=== PATIENT | male | born 1940 | race American Indian/Alaskan Native ===

== ENCOUNTER 2016-12-13 06:21 | Inpatient (IN) | payer MEDICARE ==
[2016-12-13] MEDS ORDERED: Propofol 10 mg/ml Inj (20 ML) ONE (07:03)
[2016-12-13] MEDS ORDERED: ePHEDrine 50 mg/ml Inj ONE ×3 (07:03→11:37)
[2016-12-13] MEDS ORDERED: Midazolam 2 MG/2 ML VIAL ONE (07:03)
[2016-12-13] MEDS ORDERED: Rocuronium 10 mg/ml (5 ml) ONE ×2 (07:04→08:40)
[2016-12-13] MEDS ORDERED: Succinylcholine 200 mg/10 ml Inj IV ONE ×2 (07:05→12:05)
[2016-12-13] MEDS ORDERED: Etomidate 20 mg/10ml Inj IV ONE ×2 (07:05→07:17)
[2016-12-13] MEDS ORDERED: Ropivacaine 0.5% 30ML IV ONE ×2 (07:17→07:26)
[2016-12-13] MEDS ORDERED: Absorbable Gelatin Sponge Size 100 ONE (07:20)
[2016-12-13] MEDS ORDERED: Thrombin Topical 5,000 IU Spray Kit ONE (07:20)
[2016-12-13 07:30] VITALS: BMI 33.9
--- NOTE | 2016-12-13 08:18 | CP.PCM.HP ---
History of Present Illness - History of Present Illness History of Present Illness: CC: L total knee replacement with Dr. Chan HPI: 76 year old male PMH osteoarthritis with 2 other knee surgeries L knee, LEONARDO , hypertension, hyperlipidemia, former smoker, renal insufficiency, BPH presents today for L total knee replacement for osteoarthritis. Prior to arrival today, patient was seen by the [facility]. and has a documented ECHO which showed normal EF, mild LVH. The letter states the patient has a hx of LEONARDO. After an abnormal stress test, patient had a L heart cath which showed nonobstructive CAD (mid LAD and diffuse luminal irregularities in RCA and LAD.) Normal LVEF 50-55%, and the report states that patient is a low risk for low risk surgical procedure. EKG NSR with rate of 67, QTc 406. Labs were reviewed and significant for elevated Creatinine of 1.5. Per chart review, patient has a history of renal insufficiency. CXR no active disease. Currently no active chest pain or shortness of breath at rest or on exertion. Has tolerated general anesthesia well in the past. METS > 4. Patient is low risk for moderate risk surgery and is medically stable for surgery this morning. Denies recent illness, fever, chills, chest pain, dyspnea, abdominal pain, dysuria, hematuria, hematochezia, melena, n/v/c/d. ROS: per HPI, 12 systems reviewed and negative PMSH: osteoarthritis with 2 other knee surgeries L knee, LEONARDO, hypertension, hyperlipidemia, former smoker, renal insufficiency, BPH FH: HTN SH: denies tobacco, ETOH, IVDU. Former smoker. Meds: as below Allergies: NKDA Vitals: reviewed and currently stable Exam: GEN: WDWN, alert, cooperative HEENT: NCAT, PERRL, EOMI NECK: supple, no JVD, no lymphadenopathy CARDIAC: +S1S2 RRR LUNG: CTAB No WRR ABD: SOFT NT ND BSX4 NO MASSES NO HSM EXT: +pedal pulses, warm and well perfused NEURO: AAOx3 SKIN warm, dry PSYCH normal mood, normal affect Labs: reviewed and as above Rads: reviewed and as above Assessment and Plan: 76 year old male PMH osteoarthritis with 2 other knee surgeries L knee, LEONARDO, hypertension, hyperlipidemia, former smoker, renal insufficiency, BPH presents today for L total knee replacement for osteoarthritis. Prior to arrival today, patient was seen by the [facility]. and has a documented ECHO which showed normal EF, mild LVH. The letter states the patient has a hx of LEONARDO. After an abnormal stress test, patient had a L heart cath which showed nonobstructive CAD (mid LAD and diffuse luminal irregularities in RCA and LAD.) Normal LVEF 50- 55%, and the report states that patient is a low risk for low risk surgical procedure. EKG NSR with rate of 67, QTc 406. Labs were reviewed and significant for elevated Creatinine of 1.5. Per chart review, patient has a history of renal insufficiency. CXR no active disease. Currently no active chest pain or shortness of breath at rest or on exertion. Has tolerated general anesthesia well in the past. METS > 4. Patient is low risk for moderate risk surgery and is medically stable for surgery this morning. S/P L total knee surgery with History of Osteoarthritis admit to medsurg VTE ppx per ortho Ancef 2 more doses PT eval and treat pain control incentive spirometer Ortho consult Dr. Chan CAD hx? HOLD ASA, plavix confirm with Ortho when OK to restart Hypertension stable continue amlodipine, hctz, metoprolol Hyperlipidemia stable Renal Insufficiency stable BPH cont flomax VTE ppx per ortho Present on Admission - Present on Admission Any Indicators Present on Admission: No Past Patient History - Past Medical History & Family History Past Medical History?: Yes - Past Social History Smoking Status: Former Smoker - CARDIAC Hx Hypercholesterolemia: Yes Hx Hypertension: Yes - PULMONARY Hx Respiratory Disorders: No - NEUROLOGICAL Hx Neurological Disorder: No - HEENT Hx HEENT Problems: No - RENAL Hx Chronic Kidney Disease: No - ENDOCRINE/METABOLIC Hx Endocrine Disorders: No - HEMATOLOGICAL/ONCOLOGICAL Hx Blood Disorders: No Hx Anemia: Yes Hx Blood Transfusions: Yes Hx Blood Transfusion Reaction: No - INTEGUMENTARY Hx Dermatological Problems: No - MUSCULOSKELETAL/RHEUMATOLOGICAL Hx Musculoskeletal Disorders: Yes Hx Arthritis: Yes Hx Falls: No Hx Osteoarthritis: Yes - GASTROINTESTINAL Hx Gastrointestinal Disorders: No - GENITOURINARY/GYNECOLOGICAL Hx Genitourinary Disorders: Yes Hx Prostate Problems: Yes - PSYCHIATRIC Hx Emotional Abuse: No Hx Physical Abuse: No - SURGICAL HISTORY Hx Surgeries: Yes Hx Joint Replacement: Yes (TOTAL LEFT KNEE REPLACEMENT X2) Other/Comment: LASER PROSTATE SX - ANESTHESIA Hx Anesthesia: Yes Hx Anesthesia Reactions: No Hx Malignant Hyperthermia: No Meds Allergies/Adverse Reactions: Allergies Allergy/AdvReac Type Severity Reaction Status Date / Time No Known Allergies Allergy Verified 11/23/16 10:06 Results - Vital Signs Recent Vital Signs: Last Vital Signs Temp 98.3 F 12/13/16 07:14 Pulse 84 12/13/16 07:23 Resp 20 12/13/16 07:14 BP 155/92 H 12/13/16 07:14 Pulse Ox 97 12/13/16 07:14 - Labs Result Diagrams: 12/13/16 16:49 Labs: Laboratory Results - last 24 hr 12/13/16 07:15 BBK History Checked No verified bt
[2016-12-13] MEDS ORDERED: Lactated Ringer's 1,000 ML IV ONE ×3 (08:20→13:43)
[2016-12-13 09:21] LABS: FLUID TYPE SYNOVIAL FLUID
[2016-12-13 11:35] LABS: SYNOVIAL FLUID TOTAL COUNT 100 (0-0)
[2016-12-13] MEDS ORDERED: Dexamethasone 4 mg/1 ml ONE (12:33)
[2016-12-13] MEDS ORDERED: Sevoflurane - Inhalation Anesthetic Liq (250 ml) ONE (12:37)
[2016-12-13] MEDS ORDERED: Neostigmine Methylsulfate 2 MG/2 ML ML IV ONE (12:46)
[2016-12-13] MEDS ORDERED: Bacitracin OINT 15GM TOP ONE (13:00)
[2016-12-13] MEDS ORDERED: Bacitracin Ointment 30 GM TUBE ONE (13:07)
[2016-12-13] MEDS ORDERED: Naloxone 0.4 mg/ml Inj (Adult) IVP PRN (13:48)
--- NOTE | 2016-12-13 13:55 | RAD ---
HISTORY: preop COMPARISON: None available. TECHNIQUE: Chest PA and lateral FINDINGS: Examination limited by habitus. LUNGS: Mild bibasilar atelectasis. Please note that chest x-ray has limited sensitivity for the detection of pulmonary masses. PLEURA: Mild bilateral pleural thickening versus trace fluid. No definite pneumothorax . CARDIOVASCULAR: Heart size appears within normal limits. Ectatic aorta. OSSEOUS STRUCTURES: Degenerative changes. VISUALIZED UPPER ABDOMEN: Mild elevation of the right hemidiaphragm. OTHER FINDINGS: None. IMPRESSION: Mild bibasilar atelectasis. Mild bilateral pleural thickening versus trace fluid. Aortic appears markedly ectatic, however there is no clear evidence of aneurysmal dilatation. CT of the chest with contrast may be considered as an outpatient in order to further assess if indicated.
[2016-12-13] MEDS: HYDROmorphone 0.5 mg/0.5 ml ISec IVP PRN ×3 (14:15→15:45)
[2016-12-13 17:10] LABS: HEMATOCRIT 40.4 % (35.0-51.0); MEAN CELL VOLUME 86.1 fl (80.0-94.0); MEAN CORPUSCULAR HEMOGLOBIN 27.1 pg (27.0-31.0); MEAN CORPUSCULAR HGB CONC 31.5 g/dL (33.0-37.0); RED CELL DISTRIBUTION WIDTH 13.9 % (11.5-14.5); WHITE BLOOD COUNT 12.5 K/uL (4.8-10.8)
[2016-12-13] MEDS ORDERED: Metoprolol 1 mg/ml Inj IVP ONE ×2 (17:18)
[2016-12-13] MEDS ORDERED: Metoprolol 1 mg/ml Inj IVP STA (17:18)
--- NOTE | 2016-12-13 19:44 | PCM.SURG1 ---
Surgeon's Initial Post Op Note - Surgeon's Notes Surgeon: Dustin Set Up Technician: EASTON Reza/ 2nd assist Hector Abdul Type of Anesthesia: General Endo Anesthesia Administered By: DR Michelle Mcginnis Pre-Operative Diagnosis: Failed/painful Revision TKR (Left). tricompartmental synovitis Operative Findings: failed L TKR with revision Tibial component which has subsided. loose femoral component (Non- stemmed0. patella damge. posterior capsular contracture. lateral pateela contractur. com[promise patella ligament Post-Operative Diagnosis: as above Operation Performed: Revision L TKR. removal TKR components (4). repair patella ligamnet. bulk allograft with internal fixation medial tibial plateau. posterior capsular release. lateral patella release. anterior and posterior synovectomy Specimen/Specimens Removed: bone/synovium/TKR components Estimated Blood Loss: EBL {In ML}: 125 Blood Products Given: N/A Drains Used: Hemovac Post-Op Condition: Good Date of Surgery/Procedure: 12/13/16 Time of Surgery/Procedure: 09:05 (8;55 time in room anaesthesia indcution time)
[2016-12-13] MEDS: ceFAZolin 2 GM in Sodium Chloride 0.9% 100 ML IVPB SCH (20:49)
[2016-12-13] MEDS: Lactated Ringer's 1,000 ML IV SCH (21:47)
[2016-12-14] MEDS: Lactated Ringer's 1,000 ML IV SCH ×3 (06:25→14:38)
[2016-12-14 06:41] LABS: BASO % 0.1 % (0.0-2.0); EOS % 0.1 % (0.0-4.0); HEMATOCRIT 33.7 % (35.0-51.0); LYMPH # 0.6 K/uL (1.0-4.3); LYMPH % 5.4 % (20.0-40.0); MEAN CELL VOLUME 85.2 fl (80.0-94.0); MEAN CORPUSCULAR HEMOGLOBIN 27.4 pg (27.0-31.0); MEAN CORPUSCULAR HGB CONC 32.2 g/dL (33.0-37.0); MEAN PLATELET VOLUME 8.7 fl (7.2-11.7); MONO # 1.4 K/uL (0.0-0.8); MONO % 11.3 % (0.0-10.0); NEUT # 9.9 K/uL (1.8-7.0); NEUT % 83.1 % (50.0-75.0); PLATELET COUNT 101 K/uL (130-400); RED CELL DISTRIBUTION WIDTH 14.1 % (11.5-14.5)
[2016-12-14 06:42] LABS: CALCIUM 8.7 mg/dL (8.4-10.2); POTASSIUM 4.2 MMOL/L (3.6-5.0)
[2016-12-14 08:45] LABS: NEUTROPHIL 83 % (42-75); TOTAL CELLS COUNTED 100
[2016-12-14 08:46] LABS: LARGE PLATELETS PRESENT
[2016-12-14] MEDS ORDERED: BENAZEPRIL PO SCH (09:00)
[2016-12-14] MEDS ORDERED: AMLODIPINE BESYLATE PO SCH (09:00)
[2016-12-14] MEDS ORDERED: [UNRECOGNIZED DRUG - OTHER] PO SCH (09:00)
[2016-12-14] MEDS: Metoprolol Succinate 100 mg XL Tab PO SCH (10:13)
--- NOTE | 2016-12-14 10:16 | CP.PCM.CON ---
History of Present Illness - History of Present Illness History of Present Illness: THE PATIENT IS A 76 YEAR OLD MALE WHO WAS ADMITTED YESTERDAY AND UNDERWENT A REVISION OF A 2ND LEFT KNEE REPLACEMENT. HE ALSO HAS A HISTORY OF HYPERTENSION , HYPERLIPIDEMIA, LEONARDO AND BPH. PRIOR TO SURGERY HE HAD AN ECHOCARDIOGRAM THAT SHOWED GOOD LV FUNCTION. HE HAD AN ABNORMAL STRESS TEST FOLLOWED BY A CARDIAC CATHETERIZATION THAT DID NOT REVEAL ANY SIGNIFICANT CAD. CARDIOLOGY WAS ASKED TO FOLLOW HIM. HE DENIES ANY CHEST PAIN OR SOB. Past Patient History - Past Medical History & Family History Past Medical History?: Yes - Past Social History Smoking Status: Former Smoker - CARDIAC Hx Hypercholesterolemia: Yes Hx Hypertension: Yes - PULMONARY Hx Respiratory Disorders: No - NEUROLOGICAL Hx Neurological Disorder: No - HEENT Hx HEENT Problems: No - RENAL Hx Chronic Kidney Disease: No - ENDOCRINE/METABOLIC Hx Endocrine Disorders: No - HEMATOLOGICAL/ONCOLOGICAL Hx Blood Disorders: No Hx Anemia: Yes Hx Blood Transfusions: Yes Hx Blood Transfusion Reaction: No - INTEGUMENTARY Hx Dermatological Problems: No - MUSCULOSKELETAL/RHEUMATOLOGICAL Hx Musculoskeletal Disorders: Yes Hx Arthritis: Yes Hx Falls: No Hx Osteoarthritis: Yes - GASTROINTESTINAL Hx Gastrointestinal Disorders: No - GENITOURINARY/GYNECOLOGICAL Hx Genitourinary Disorders: Yes Hx Prostate Problems: Yes - PSYCHIATRIC Hx Emotional Abuse: No Hx Physical Abuse: No - SURGICAL HISTORY Hx Surgeries: Yes Hx Joint Replacement: Yes (TOTAL LEFT KNEE REPLACEMENT X2) Other/Comment: LASER PROSTATE SX - ANESTHESIA Hx Anesthesia: Yes Hx Anesthesia Reactions: No Hx Malignant Hyperthermia: No Meds Allergies/Adverse Reactions: Allergies Allergy/AdvReac Type Severity Reaction Status Date / Time No Known Allergies Allergy Verified 11/23/16 10:06 - Medications Medications: Current Medications Aspirin (Ecotrin) 81 mg PO DAILY [facility] Clopidogrel Bisulfate (Plavix) 75 mg PO DAILY [facility] Home Med (Amlodipine Besylate/Benazepril [Amlodipine-Benazepril 10-20 Mg]) 1 cap PO DAILY [facility] Home Med (Febuxostat [Uloric]) 40 mg PO DAILY [facility] Hydrochlorothiazide (Microzide) 12.5 mg PO DAILY [facility] Hydromorphone HCl (Dilaudid) 0.5 mg IVP Q10M PRN PRN Reason: Pain, moderate (4-7) Last Admin: 12/13/16 15:45 Dose: 0.5 mg Hydromorphone HCl (Dilaudid 0.2 Mg/Ml Automatic Trimming Sewer) 0 mg IV PRN PRN; Protocol PRN Reason: Pain, moderate (4-7) Last Admin: 12/13/16 16:40 Dose: 0.2 mg Lactated Ringer's (Lactated Ringer's) 1,000 mls @ 125 mls/hr IV .Q8H [facility] Last Admin: 12/14/16 06:25 Dose: 125 mls/hr Metoprolol Succinate (Toprol Xl) 100 mg PO DAILY [facility] Naloxone HCl (Narcan) 0.1 mg IVP Q2M PRN PRN Reason: Opiate reversal Tamsulosin HCl (Flomax) 0.4 mg PO DAILY [facility] Physical Exam - Respiratory Exam Respiratory Exam: Clear to Auscultation Bilateral - Cardiovascular Exam Cardiovascular Exam: REGULAR RHYTHM, +S1, +S2 - Extremities Exam Additional comments: LEFT KNEE WITH SURGICAL DRESSINGS Results - Vital Signs Recent Vital Signs: Last Vital Signs Temp 98.8 F 12/14/16 09:00 Pulse 101 H 12/14/16 09:00 Resp 20 12/14/16 09:00 BP 127/83 12/14/16 09:00 Pulse Ox 96 12/14/16 09:00 - Labs Result Diagrams: 12/14/16 05:45 12/14/16 05:45 Labs: Laboratory Results - last 24 hr 12/13/16 12/13/16 12/14/16 16:49 Unknown 05:45 WBC 12.5 H 12.0 H RBC 4.70 3.96 L Hgb 12.7 10.8 L Hct 40.4 33.7 L MCV 86.1 85.2 MCH 27.1 27.4 MCHC 31.5 L 32.2 L RDW 13.9 14.1 Plt Count 116 L 101 L MPV 8.7 Neut % (Auto) 83.1 H Lymph % (Auto) 5.4 L [place] % (Auto) 11.3 H Eos % (Auto) 0.1 Baso % (Auto) 0.1 Neut # 9.9 H Lymph # 0.6 L [place] # 1.4 H Eos # 0.0 Baso # 0.0 Neutrophils % (Manual) 83 H Lymphocytes % (Manual) 8 L Monocytes % (Manual) 9 Platelet Estimate Decreased L Large Platelets Present Hypochromasia (manual) Slight Tear Drop Cells Slight Ovalocytes Slight Schistocytes Slight Sodium Potassium Chloride Carbon Dioxide Anion Gap BUN Creatinine Est GFR ( Amer) Est GFR (Non-Af Amer) Random Glucose Calcium Synovial WBC 72.0 Synovial RBC 24715.0 H Synovial Neutrophils 21.0 H Synovial Lymphocytes 65.0 H Synov Monos/Macrophage 14 H Synovial Fluid Comment Light red 12/14/16 05:45 WBC RBC Hgb Hct MCV MCH MCHC RDW Plt Count MPV Neut % (Auto) Lymph % (Auto) [place] % (Auto) Eos % (Auto) Baso % (Auto) Neut # Lymph # [place] # Eos # Baso # Neutrophils % (Manual) Lymphocytes % (Manual) Monocytes % (Manual) Platelet Estimate Large Platelets Hypochromasia (manual) Tear Drop Cells Ovalocytes Schistocytes Sodium 139 Potassium 4.2 Chloride 106 Carbon Dioxide 25 Anion Gap 13 BUN 30 H Creatinine 2.2 H Est GFR ( Amer) 35 Est GFR (Non-Af Amer) 29 Random Glucose 138 H Calcium 8.7 Synovial WBC Synovial RBC Synovial Neutrophils Synovial Lymphocytes Synov Monos/Macrophage Synovial Fluid Comment Assessment & Plan - Assessment and Plan (Free Text) Assessment: S/P REVISION OF LEFT KNEE REPLACEMENT HYPERTENSION Plan: CONTINUE METOPROLOL, ASPIRIN AND CLOPIDOGREL
[2016-12-14] MEDS: ceFAZolin 2 GM in Sodium Chloride 0.9% 100 ML IVPB SCH (10:57)
--- NOTE | 2016-12-14 13:29 | CP.PCM.PN ---
Subjective - Date & Time of Evaluation Date of Evaluation: 12/14/16 Time of Evaluation: 13:26 - Subjective Subjective: seen examined bedside HR low 100s stable asx no other complaints pain is controlled no cp dyspnea or calf tenderness vss nad Objective - Vital Signs/Intake and Output Vital Signs (last 24 hours): Temp Pulse Resp BP Pulse Ox 99.0 F 105 H 20 109/67 96 12/14/16 12:08 12/14/16 12:08 12/14/16 12:08 12/14/16 12:08 12/14/16 12:08 Intake and Output: 12/14/16 12/14/16 06:59 18:59 Intake Total 1840 Output Total 400 Balance 1440 - Medications Medications: Current Medications Aspirin (Ecotrin) 81 mg PO DAILY [facility] Clopidogrel Bisulfate (Plavix) 75 mg PO DAILY [facility] Enoxaparin Sodium (Lovenox) 40 mg SC DAILY [facility] PRN Reason: Protocol Home Med (Amlodipine Besylate/Benazepril [Amlodipine-Benazepril 10-20 Mg]) 1 cap PO DAILY [facility] Home Med (Febuxostat [Uloric]) 40 mg PO DAILY [facility] Hydrochlorothiazide (Microzide) 12.5 mg PO DAILY [facility] Hydromorphone HCl (Dilaudid) 0.5 mg IVP Q10M PRN PRN Reason: Pain, moderate (4-7) Last Admin: 12/13/16 15:45 Dose: 0.5 mg Hydromorphone HCl (Dilaudid 0.2 Mg/Ml [employer]) 0 mg IV PRN PRN; Protocol PRN Reason: Pain, moderate (4-7) Last Admin: 12/13/16 16:40 Dose: 0.2 mg Lactated Ringer's (Lactated Ringer's) 1,000 mls @ 125 mls/hr IV .Q8H [facility] Last Admin: 12/14/16 06:25 Dose: 125 mls/hr Metoprolol Succinate (Toprol Xl) 100 mg PO DAILY [facility] Last Admin: 12/14/16 10:13 Dose: 100 mg Naloxone HCl (Narcan) 0.1 mg IVP Q2M PRN PRN Reason: Opiate reversal Tamsulosin HCl (Flomax) 0.4 mg PO DAILY [facility] Last Admin: 12/14/16 10:14 Dose: 0.4 mg - Labs Labs: 12/14/16 05:45 12/14/16 05:45 - Constitutional Appears: Non-toxic, No Acute Distress - Head Exam Head Exam: ATRAUMATIC, NORMOCEPHALIC - Eye Exam Eye Exam: EOMI, Normal appearance, PERRL Pupil Exam: NORMAL ACCOMODATION - ENT Exam ENT Exam: Mucous Membranes Moist, Normal Oropharynx - Respiratory Exam Respiratory Exam: Clear to Ausculation Bilateral, NORMAL BREATHING PATTERN - Cardiovascular Exam Cardiovascular Exam: RRR, +S1, +S2 - GI/Abdominal Exam GI & Abdominal Exam: Soft, Normal Bowel Sounds. absent: Tenderness, Mass, Organomegaly - Extremities Exam Extremities Exam: Normal Capillary Refill Additional comments: dressing in place +hemovac - Back Exam Back Exam: absent: CVA tenderness (L), CVA tenderness (R) - Neurological Exam Neurological Exam: Alert, Awake, Oriented x3 - Psychiatric Exam Psychiatric exam: Normal Affect, Normal Mood - Skin Skin Exam: Dry, Warm Assessment and Plan - Assessment and Plan (Free Text) Plan: 76 year old male PMH osteoarthritis with 2 other knee surgeries L knee, LEONARDO, hypertension, hyperlipidemia, former smoker, renal insufficiency, BPH presents today for L total knee replacement for osteoarthritis. Prior to arrival today, patient was seen by the [facility]. and has a documented ECHO which showed normal EF, mild LVH. The letter states the patient has a hx of LEONARDO. After an abnormal stress test, patient had a L heart cath which showed nonobstructive CAD (mid LAD and diffuse luminal irregularities in RCA and LAD.) Normal LVEF 50- 55%, and the report states that patient is a low risk for low risk surgical procedure. EKG NSR with rate of 67, QTc 406. Labs were reviewed and significant for elevated Creatinine of 1.5. Per chart review, patient has a history of renal insufficiency. CXR no active disease. Currently no active chest pain or shortness of breath at rest or on exertion. Has tolerated general anesthesia well in the past. METS > 4. Patient is low risk for moderate risk surgery and is medically stable for surgery this morning. S/P L total knee surgery with History of Osteoarthritis +hemovac in place Ancef 2 more doses completed VTE ppx per ortho today, Lovenox 40mg DAILY PT eval and treat, follow up pain control, change to PO incentive spirometer Ortho consult Dr. Chan, discussed today Cardiology consult with Dr. Herrera, Discussed. HOLD ASA and Plavix for now, continue with Lovenox PPx for VTE CAD hx? HOLD ASA, plavix confirm with Ortho when OK to restart Cardiology consult with Dr. Herrera, Discussed. HOLD ASA and Plavix for now, continue with Lovenox PPx for VTE Hypertension stable continue amlodipine, hctz, metoprolol Hyperlipidemia stable Renal Insufficiency stable BPH cont flomax VTE ppx Lovenox 40mg DAILY
--- NOTE | 2016-12-14 13:39 | RAD ---
Indication: Postop Comparison: None available Two views, left knee Findings: The patient is status post left knee total arthroplasty. Alignment appears satisfactory. Soft tissue swelling, drainage catheter, subcutaneous emphysema, and surgical bryon compatible with recent postoperative history Impression: Status post left arthroplasty as above.
[2016-12-14] MEDS ORDERED: Oxycodone/Acetaminophen 5/325 mg Tab PO PRN (14:21)
[2016-12-14] MEDS: Oxycodone/Acetaminophen 5/325 mg Tab PO PRN (17:08)
[2016-12-15] MEDS: Lactated Ringer's 1,000 ML IV SCH ×3 (02:31→14:00)
[2016-12-15 07:22] LABS: BASO % 0.6 % (0.0-2.0); EOS # 0.1 K/uL (0.0-0.7); EOS % 0.9 % (0.0-4.0); HEMATOCRIT 23.6 % (35.0-51.0); LYMPH # 0.4 K/uL (1.0-4.3); LYMPH % 5.1 % (20.0-40.0); MEAN CORPUSCULAR HEMOGLOBIN 27.7 pg (27.0-31.0); MEAN CORPUSCULAR HGB CONC 32.6 g/dL (33.0-37.0); MONO % 11.7 % (0.0-10.0); NEUT # 7.1 K/uL (1.8-7.0); NEUT % 81.7 % (50.0-75.0); NRBC % 0.1 % (0.0-0.0); RED CELL DISTRIBUTION WIDTH 13.6 % (11.5-14.5); WHITE BLOOD COUNT 8.6 K/uL (4.8-10.8)
[2016-12-15 07:36] LABS: CALCIUM 8.3 mg/dL (8.4-10.2); POTASSIUM 4.1 MMOL/L (3.6-5.0)
[2016-12-15] MEDS: Metoprolol Succinate 100 mg XL Tab PO SCH (08:58)
[2016-12-15] MEDS ORDERED: Enoxaparin 40 mg Syringe SC SCH (09:00)
--- NOTE | 2016-12-15 09:49 | CP.PCM.PN ---
Subjective - Date & Time of Evaluation Date of Evaluation: 12/15/16 Time of Evaluation: 09:00 - Subjective Subjective: Pt has low grade fever denies cough His pain is well controlled denies dizziness no CP no SOB no abd pain Discussed need for Blood transfusion- pt agreed refuses to go to TCU nor TOYIN on discharge Objective - Vital Signs/Intake and Output Vital Signs (last 24 hours): Temp Pulse Resp BP Pulse Ox 99.8 F H 97 H 18 123/77 94 L 12/15/16 07:52 12/15/16 08:58 12/15/16 07:52 12/15/16 08:58 12/15/16 07:52 Intake and Output: 12/15/16 12/15/16 06:59 18:59 Intake Total 1250 Output Total 1230 Balance 20 - Medications Medications: Current Medications Aspirin (Ecotrin) 81 mg PO DAILY [facility] Clopidogrel Bisulfate (Plavix) 75 mg PO DAILY [facility] Enoxaparin Sodium (Lovenox) 40 mg SC DAILY [facility] PRN Reason: Protocol Home Med (Amlodipine Besylate/Benazepril [Amlodipine-Benazepril 10-20 Mg]) 1 cap PO DAILY [facility] Home Med (Febuxostat [Uloric]) 40 mg PO DAILY [facility] Hydromorphone HCl (Dilaudid) 0.5 mg IVP Q10M PRN PRN Reason: Pain, moderate (4-7) Last Admin: 12/13/16 15:45 Dose: 0.5 mg Lactated Ringer's (Lactated Ringer's) 1,000 mls @ 125 mls/hr IV .Q8H [facility] Last Admin: 12/15/16 02:32 Dose: 125 mls/hr Metoprolol Succinate (Toprol Xl) 100 mg PO DAILY [facility] Last Admin: 12/15/16 08:58 Dose: 100 mg Naloxone HCl (Narcan) 0.1 mg IVP Q2M PRN PRN Reason: Opiate reversal Oxycodone/Acetaminophen (Percocet 5/325 Mg Tab) 1 tab PO Q4 PRN PRN Reason: Pain, moderate (4-7) Stop: 12/17/16 14:22 Oxycodone/Acetaminophen (Percocet 5/325 Mg Tab) 2 tab PO Q6 PRN PRN Reason: Pain, severe (8-10) Stop: 12/17/16 14:22 Last Admin: 12/14/16 17:08 Dose: 2 tab Tamsulosin HCl (Flomax) 0.4 mg PO DAILY [facility] Last Admin: 12/14/16 10:14 Dose: 0.4 mg - Labs Labs: 12/15/16 06:30 12/15/16 06:30 - Constitutional Appears: No Acute Distress - Head Exam Head Exam: NORMAL INSPECTION, NORMOCEPHALIC - Eye Exam Eye Exam: EOMI, Normal appearance Pupil Exam: NORMAL ACCOMODATION - ENT Exam ENT Exam: Mucous Membranes Moist, Normal External Ear Exam - Neck Exam Neck Exam: Full ROM. absent: Meningismus - Respiratory Exam Respiratory Exam: NORMAL BREATHING PATTERN. absent: Rales, Wheezes, Respiratory Distress - Cardiovascular Exam Cardiovascular Exam: REGULAR RHYTHM, +S1, +S2 - GI/Abdominal Exam GI & Abdominal Exam: Soft, Normal Bowel Sounds. absent: Tenderness - Extremities Exam Extremities Exam: Full ROM, Normal Capillary Refill. absent: Calf Tenderness Additional comments: Hemovac in plave Knee immobolizer on, dressing intact - Back Exam Back Exam: Full ROM. absent: CVA tenderness (L), CVA tenderness (R) - Neurological Exam Neurological Exam: Alert, Awake, CN II-XII Intact, Oriented x3 - Psychiatric Exam Psychiatric exam: Normal Affect, Normal Mood - Skin Skin Exam: Dry, Normal Color, Warm Assessment and Plan - Assessment and Plan (Free Text) Assessment: 76 year old male PMH osteoarthritis with hx of TKR , LEONARDO, hypertension, hyperlipidemia, former smoker, renal insufficiency, BPH presents today for L total knee replacement for osteoarthritis. Prior to arrival today, patient was seen by the [facility]. and has a documented ECHO which showed normal EF, mild LVH. The letter states the patient has a hx of LEONARDO. After an abnormal stress test, patient had a L heart cath which showed nonobstructive CAD (mid LAD and diffuse luminal irregularities in RCA and LAD.) Normal LVEF 50-55%, and the report states that patient is a low risk for surgical procedure. EKG NSR with rate of 67, QTc 406. Labs were reviewed and significant for elevated Creatinine of 1.5. Per chart review, patient has a history of renal insufficiency. CXR no active disease. Currently no active chest pain or shortness of breath at rest or on exertion. Has tolerated general anesthesia well in the past. METS > 4. Primary Osteoarthritis with hx of Failed TKR s/p Revision TKR Ortho : Dr Chan - Pain controlled on current pain mgt - PT/OT consulted - Hemovc in place Acute Blood Loss Anemia, post op Hgb 7.8 Transfuse 2 units PRBC - start Ferrous Sulfate - VS stable, sl tachycardic Thrombocytopenia - pt came in with sl low Platelet - 116 now down to 80 - will cont to monitor - d/c Lovenox - Stopped ASA, Plavix CAD history -HOLD ASA, plavix -Cardiology consult with Dr. Herrera Hypertension -continue amlodipine, metoprolol Hyperlipidemia, stable Chronic Kideney Disease stage III Crea 2.1 , sl better than yesterday , will cont to monitor BPH -cont flomax VTE ppx SCD
--- NOTE | 2016-12-15 12:22 | CP.PCM.PN ---
Subjective - Date & Time of Evaluation Date of Evaluation: 12/15/16 Time of Evaluation: 09:40 - Subjective Subjective: NO CHEST PAIN OR SOB JUST PAIN AT LEFT KNEE SURGICAL SITE Objective - Vital Signs/Intake and Output Vital Signs (last 24 hours): Temp Pulse Resp BP Pulse Ox 101 F H 97 H 18 123/77 94 L 12/15/16 10:15 12/15/16 08:58 12/15/16 07:52 12/15/16 08:58 12/15/16 07:52 Intake and Output: 12/15/16 12/15/16 06:59 18:59 Intake Total 1250 Output Total 1230 Balance 20 - Medications Medications: Current Medications Acetaminophen (Tylenol 325mg Tab) 650 mg PO Q6 PRN PRN Reason: Fever >100.4 F Last Admin: 12/15/16 10:15 Dose: 650 mg Aspirin (Ecotrin) 81 mg PO DAILY [facility] Clopidogrel Bisulfate (Plavix) 75 mg PO DAILY [facility] Docusate Sodium (Colace) 100 mg PO BID [facility] Enoxaparin Sodium (Lovenox) 40 mg SC DAILY [facility] PRN Reason: Protocol Ferrous Sulfate (Feosol) 325 mg PO TID [facility] Home Med (Febuxostat [Uloric]) 40 mg PO DAILY [facility] Hydromorphone HCl (Dilaudid) 0.5 mg IVP Q10M PRN PRN Reason: Pain, moderate (4-7) Last Admin: 12/13/16 15:45 Dose: 0.5 mg Lactated Ringer's (Lactated Ringer's) 1,000 mls @ 125 mls/hr IV .Q8H [facility] Last Admin: 12/15/16 02:32 Dose: 125 mls/hr Metoprolol Succinate (Toprol Xl) 100 mg PO DAILY [facility] Last Admin: 12/15/16 08:58 Dose: 100 mg Naloxone HCl (Narcan) 0.1 mg IVP Q2M PRN PRN Reason: Opiate reversal Oxycodone/Acetaminophen (Percocet 5/325 Mg Tab) 1 tab PO Q4 PRN PRN Reason: Pain, moderate (4-7) Stop: 12/17/16 14:22 Oxycodone/Acetaminophen (Percocet 5/325 Mg Tab) 2 tab PO Q6 PRN PRN Reason: Pain, severe (8-10) Stop: 12/17/16 14:22 Last Admin: 12/14/16 17:08 Dose: 2 tab Tamsulosin HCl (Flomax) 0.4 mg PO DAILY [facility] Last Admin: 12/15/16 10:16 Dose: 0.4 mg - Labs Labs: 12/15/16 06:30 12/15/16 06:30 - Respiratory Exam Respiratory Exam: Clear to Ausculation Bilateral - Cardiovascular Exam Cardiovascular Exam: REGULAR RHYTHM, +S1, +S2 - Additional Findings Additional findings: H/H 01/[address] 80K Assessment and Plan - Assessment and Plan (Free Text) Assessment: LEFT KNEE SURGERY HYPERTENSION HYPERLIPIDEMIA Plan: CONTINUE METOPROLOL DISCONTINUE ASA AND CLOPIDOGREL LOVENOX ON HOLD TO TRANSFUSE 2URBCS
[2016-12-15] MEDS: Oxycodone/Acetaminophen 5/325 mg Tab PO PRN (20:16)
[2016-12-16 07:18] LABS: HEMATOCRIT 23.6 % (35.0-51.0); MEAN CELL VOLUME 84.5 fl (80.0-94.0); MEAN CORPUSCULAR HEMOGLOBIN 28.3 pg (27.0-31.0); MEAN CORPUSCULAR HGB CONC 33.5 g/dL (33.0-37.0); RED CELL DISTRIBUTION WIDTH 14.1 % (11.5-14.5); WHITE BLOOD COUNT 7.7 K/uL (4.8-10.8)
[2016-12-16 07:30] LABS: CALCIUM 8.4 mg/dL (8.4-10.2); POTASSIUM 4.5 MMOL/L (3.6-5.0)
--- NOTE | 2016-12-16 08:14 | OP ---
PROCEDURE DATE: 12/13/2016 PREOPERATIVE DIAGNOSES: Failed painful left total knee replacement, arthroplasty. POSTOPERATIVE DIAGNOSES: Loosened femoral component, subsided tibial component with loosening and de struction of the medial tibial condyle. SURGEON: Jose Elias Chan MD GLASS CLEANING MACHINE TENDER: Lola Ramos, Certified Registered Nursing Cookie Breaker. It should be noted janene t the certified nursing nurse first aid, Lola Ramos, was essential to the completion of the operati ve goal. SECOND UMBRELLA MENDER: Hector Abdul. ANESTHESIA: Administered by ____, general endotracheal anesthesia. PREOPERATIVE DIAGNOSES: Painful revision left total knee replacement. POSTOPERATIVE DIAGNOSES: Loosened femoral component, loosened tibial component, destruction of media l tibial condyle. OPERATIVE FINDINGS FOUND: Left TKR with loosened femoral component and a subsided tibial component. There is also evidence of posterior capsular contracture, lateral patellar contracture and compromis e of the patella ligament. PROCEDURES: 1. Complex revision, left TKR. 2. Removal of previous total knee components. 3. Repair of patella ligament. 4. Bulk allograft with internal fixation, medial tibial condyle. 5. Posterior capsular release. 6. Lateral patellar retinacular release. OPERATIVE PROCEDURE: After having obtained informed consent, after thoroughly discussing the pros, c ons, risks and benefits of revision knee arthroplasty, the possibility of mechanical failure, infecti on, thromboembolic disease, nerve injury, leg length inequality, secondary or tertiary surgery, the p atient identified, in the supine position with all bony prominences well padded, the left lower extre mity is prepped and free draped in the usual fashion for lower extremity surgery. The tourniquet had been applied, but is not yet inflated. After exsanguinating the wound using a 6-inch Esmarch bandag e, the tourniquet which had been applied is inflated to 350 mmHg. The initial incision is identified and the initial incision is extended 2 fingerbreadths proximally and 2 fingerbreadths distally. The skin incision is carried down through the skin and subcutaneous tissue and ____ skin and subcutaneou s tissue is removed. At this point in time, taking great care to ____ the depth of the incision, car rying the incision down to the level of the prepatellar bursa, where the fact that the blood supply c omes in on the subcutis, the flaps were elevated medially and laterally to expose the medial and late ral retinaculum. A medial arthrotomy is accomplished. Fluid is sent for gram stain number of white cells per high power field. Dissection is carried around posteromedially to the direct head of the s emimembranosis tendon. A portion of the patella ligament is elevated. Great care was taken not to a vulse patella ligament. Later repair of the patella ligament is necessary though because of the amoun t of compromise of the patella ligament. This having been accomplished, a lateral patella retinacula r release is accomplished and a partial synovectomy anteriorly and posteriorly is accomplished. Leisa use of the lateral patella retinacular contracture, a lateral patella retinacular release is accompli shed. Anterior and posterior synovectomy is accomplished. A lateral patellar retinacular release is accomplished. This having been accomplished, the patella was everted and extensive anterior and pos terior synovectomy is accomplished. ____ scar tissue on the posterior aspect of the ____ noted, medi al arthrotomy having been accomplished, the tibia was dislocated anteriorly. There was found to be m arked compromise of the medial tibial condyle with an extraordinary amount of cement supporting the t ibial component medially. This having been accomplished, the tibial polyethylene is removed and atte ntion was turned to the femur. The interface between the cement and the femur was developed using __ __ an oscillating saw and then the ____. This having been accomplished, this was followed in all zon es with minimal loss of bone, the femoral component is removed. The tibial component is more challen ging. Using initially the oscillating saw, the oscillating saw was carried around laterally and ante riorly to develop a plane between the cement and the component. This having been accomplished, using the [place] with the ____ attachment, the cement is compromised throughout the medial aspect of th e tibial plateau. ____ technique is noted and this having been accomplished, the plane is developed between the cement and the component. At this point in time, the ____ is placed medially, anteriorly , laterally and across the posterior condyles. This having been accomplished, the tibial compo nent is loosened and the tibial component is thus removed with upward force. Great care is taken wit h the ____ bur on the [place] and removed all of the cement. This having been accomplished, cement having been removed, the tibial component is removed and excess cement is removed from the femur as well. At this point in time, before removing the femoral component which is ____ the position of the component is marked with the ____ on the anterior aspect ____ measurement device on the anterior asp ect of the femur. This having been accomplished, further debridement of the cement on the tibia is a ccomplished using the [employer] Clifton bur and reamers. Reaming is carried out to a #18 on the femoral side . The distal cut is set at 2 degrees of valgus. Distal cut is accomplished in line with the ____ di stal to the epicondyles. This having been accomplished, the 4-in-1 block for a ____ cemented femoral component is applied on the distal femur. The distal cutting block is placed along the epicondylar axis. Anterior and posterior osteotomies are accomplished as well as chamfer cuts. This having been accomplished, the notch cut is placed as well. The notch cut having been placed, the posterior caps ule is found to be contracted. A careful posterior capsular release is accomplished using an oscilla ting saw taking great care to ____ not injure the posterior vasculature. At this point in time, the tibia is repaired. It should be noted that ____ allograft was used to build up the tibial condyle. A ll cement is removed with the bur and at this point in time, cement is removed on the articular carti alba of the femoral head. A femoral head allograft was used. The femoral head is pinned. The cut i s accomplished in ____ degrees of varus valgus and 0 degrees of posterior slope ____ femoral compone nt. This having been accomplished, the morselized graft from the femoral head was used as a bed for the allograft femoral condyle. In this way, the medial tibial plateau is reconstituted. This having been accomplished, the drilling is accomplished with a 2.5 drill bit sounding and 4 screws are placed . The 4 screws were placed and the fixation is accomplished. At this point in time, the box cut is accomplished and sequential reaming is carried out to the 80 mm x 12 mm stem tibial component. This having been accomplished, reaming having been accomplished, open reduction and fixation of the tibial allograft is accomplished and this having been accomplished, the wound is thoroughly irrigated. Tri aling is accomplished with the appropriate size stem femoral component and the ____ tibial component with the 22 mm polyethylene. Flexion, extension gap is found to be excellent and this having been ac complished, attention was turned to the patella. Freehand patella osteotomy is accomplished, the pat rivka is debrided and lateral patella retinacular release is accomplished, posterior capsular release and this having been accomplished, the wound is thoroughly irrigated. Trialing is accomplished. Exc ellent flexion, extension, balance is excellent. Patella balance. The femur, tibia and patella are prepared and the stemmed femoral component is applied, as is the stemmed ____ component is cemented a s well, 22 mm polyethylene and the appropriate sized patella cemented. Flexion, extension gap was fo und to be acceptable. Polyethylene is fitted and found to be excellent and this having been accompli shed, the patella ligament is reinforced using interrupted ____ and Arthrex fixation sutures. This h aving been accomplished, the patella ligament is repaired/reconstructed, the wound is thoroughly irri gated. The tourniquet has been deflated. Hemostasis controlled with the ____. The wound is thoroug hly irrigated. Closure is in layers, is accomplished with Quill with FiberWire Quill, and this havi ng been accomplished, closure is in layers with the FiberWire, Quill, Vicryl, bryon for skin over 1 /8 inch suction Hemovac drain. Gene Riley compression dressing and knee immobilizer is applied. Jose Elias Chan MD cc: [id number] TT: 12/15/2016 21:57:21 rn 12/16/2016 07:10:22
[2016-12-16] MEDS: Metoprolol Succinate 100 mg XL Tab PO SCH (09:44)
--- NOTE | 2016-12-16 09:49 | CP.PCM.PN ---
Subjective - Date & Time of Evaluation Date of Evaluation: 12/16/16 Time of Evaluation: 09:00 - Subjective Subjective: low grade fever yesterday no tachycardia, no CP no SOB Denies dizziness feels fine Very minimal pain on the surgical site now agrees to go to TCU Objective - Vital Signs/Intake and Output Vital Signs (last 24 hours): Temp Pulse Resp BP Pulse Ox 99.2 F 85 18 101/63 97 12/16/16 08:00 12/16/16 09:44 12/16/16 08:00 12/16/16 09:44 12/16/16 08:00 Intake and Output: 12/16/16 12/16/16 06:59 18:59 Intake Total 240 Output Total 600 Balance -360 - Medications Medications: Current Medications Acetaminophen (Tylenol 325mg Tab) 650 mg PO Q6 PRN PRN Reason: Fever >100.4 F Last Admin: 12/15/16 10:15 Dose: 650 mg Docusate Sodium (Colace) 100 mg PO BID [facility] Last Admin: 12/16/16 09:43 Dose: 100 mg Enoxaparin Sodium (Lovenox) 40 mg SC DAILY [facility] PRN Reason: Protocol Ferrous Sulfate (Feosol) 325 mg PO TID [facility] Last Admin: 12/16/16 09:43 Dose: 325 mg Home Med (Febuxostat [Uloric]) 40 mg PO DAILY [facility] Hydromorphone HCl (Dilaudid) 0.5 mg IVP Q10M PRN PRN Reason: Pain, moderate (4-7) Last Admin: 12/13/16 15:45 Dose: 0.5 mg Metoprolol Succinate (Toprol Xl) 100 mg PO DAILY [facility] Last Admin: 12/16/16 09:44 Dose: 100 mg Naloxone HCl (Narcan) 0.1 mg IVP Q2M PRN PRN Reason: Opiate reversal Oxycodone/Acetaminophen (Percocet 5/325 Mg Tab) 1 tab PO Q4 PRN PRN Reason: Pain, moderate (4-7) Stop: 12/17/16 14:22 Oxycodone/Acetaminophen (Percocet 5/325 Mg Tab) 2 tab PO Q6 PRN PRN Reason: Pain, severe (8-10) Stop: 12/17/16 14:22 Last Admin: 06/21/17 20:16 Dose: 2 tab Tamsulosin HCl (Flomax) 0.4 mg PO DAILY [facility] Last Admin: 12/16/16 09:43 Dose: 0.4 mg - Labs Labs: 12/16/16 05:45 12/16/16 05:45 - Constitutional Appears: No Acute Distress - Head Exam Head Exam: NORMAL INSPECTION, NORMOCEPHALIC - Eye Exam Eye Exam: EOMI, Normal appearance Pupil Exam: NORMAL ACCOMODATION - ENT Exam ENT Exam: Mucous Membranes Moist, Normal External Ear Exam - Neck Exam Neck Exam: Full ROM. absent: Meningismus - Respiratory Exam Respiratory Exam: NORMAL BREATHING PATTERN. absent: Rales, Wheezes, Respiratory Distress - Cardiovascular Exam Cardiovascular Exam: REGULAR RHYTHM, +S1, +S2 - GI/Abdominal Exam GI & Abdominal Exam: Soft, Normal Bowel Sounds. absent: Tenderness - Extremities Exam Extremities Exam: Full ROM, Normal Capillary Refill. absent: Calf Tenderness Additional comments: Knee immobilizer on, dressing intact - Back Exam Back Exam: Full ROM. absent: CVA tenderness (L), CVA tenderness (R) - Neurological Exam Neurological Exam: Alert, Awake, CN II-XII Intact, Oriented x3 - Psychiatric Exam Psychiatric exam: Normal Affect, Normal Mood - Skin Skin Exam: Dry, Normal Color, Warm Assessment and Plan - Assessment and Plan (Free Text) Assessment: 76 year old male PMH osteoarthritis with hx of TKR , LEONADRO, hypertension, hyperlipidemia, former smoker, renal insufficiency, BPH presents today for L total knee replacement for osteoarthritis. Prior to arrival today, patient was seen by the [facility] and has a documented ECHO which showed normal EF, mild LVH. The letter states the patient has a hx of LEONARDO. After an abnormal stress test, patient had a L heart cath which showed nonobstructive CAD (mid LAD and diffuse luminal irregularities in RCA and LAD.) Normal LVEF 50-55%, and the report states that patient is a low risk for surgical procedure. EKG NSR with rate of 67, QTc 406. Labs were reviewed and significant for elevated Creatinine of 1.5. Per chart review, patient has a history of renal insufficiency. CXR no active disease. Currently no active chest pain or shortness of breath at rest or on exertion. Has tolerated general anesthesia well in the past. METS > 4. Primary Osteoarthritis with hx of Failed TKR s/p Revision TKR Ortho : Dr Chan - Pain controlled on current pain mgt - PT/OT consulted - Hemovac was d/c yesterday - Incentive spirometry Acute Blood Loss Anemia, post op Hgb 7.9 Transfuse 2 more units PRBC - start Ferrous Sulfate - VS stable, sl tachycardic Thrombocytopenia - pt came in with low Platelet - 116 now down to 72 - will cont to monitor - d/c Lovenox - Stopped ASA, Plavix - FFP transfusion CAD history -HOLD ASA, plavix -Cardiology consult with Dr. Herrera - pt denies any CP, no SOB Hypertension -continue amlodipine, metoprolol Hyperlipidemia, stable Chronic Kidney Disease stage III Crea 1.9 , better than yesterday , will cont to monitor BPH -cont flomax VTE ppx SCD no anticoag sec to thrombocytopenia
--- NOTE | 2016-12-16 10:46 | CP.PCM.PN ---
Subjective - Date & Time of Evaluation Date of Evaluation: 12/16/16 Time of Evaluation: 08:45 - Subjective Subjective: NO COMPLAINTS EXCEPT FOR SURGICAL SITE PAIN Objective - Vital Signs/Intake and Output Vital Signs (last 24 hours): Temp Pulse Resp BP Pulse Ox 99.2 F 85 18 101/63 97 12/16/16 08:00 12/16/16 09:44 12/16/16 08:00 12/16/16 09:44 12/16/16 08:00 Intake and Output: 12/16/16 12/16/16 06:59 18:59 Intake Total 240 Output Total 600 Balance -360 - Medications Medications: Current Medications Acetaminophen (Tylenol 325mg Tab) 650 mg PO Q6 PRN PRN Reason: Fever >100.4 F Last Admin: 12/15/16 10:15 Dose: 650 mg Docusate Sodium (Colace) 100 mg PO BID [facility] Last Admin: 12/16/16 09:43 Dose: 100 mg Enoxaparin Sodium (Lovenox) 40 mg SC DAILY [facility] PRN Reason: Protocol Ferrous Sulfate (Feosol) 325 mg PO TID [facility] Last Admin: 12/16/16 09:43 Dose: 325 mg Home Med (Febuxostat [Uloric]) 40 mg PO DAILY [facility] Hydromorphone HCl (Dilaudid) 0.5 mg IVP Q10M PRN PRN Reason: Pain, moderate (4-7) Last Admin: 12/13/16 15:45 Dose: 0.5 mg Metoprolol Succinate (Toprol Xl) 100 mg PO DAILY [facility] Last Admin: 12/16/16 09:44 Dose: 100 mg Naloxone HCl (Narcan) 0.1 mg IVP Q2M PRN PRN Reason: Opiate reversal Oxycodone/Acetaminophen (Percocet 5/325 Mg Tab) 1 tab PO Q4 PRN PRN Reason: Pain, moderate (4-7) Stop: 12/17/16 14:22 Oxycodone/Acetaminophen (Percocet 5/325 Mg Tab) 2 tab PO Q6 PRN PRN Reason: Pain, severe (8-10) Stop: 12/17/16 14:22 Last Admin: 12/15/16 20:16 Dose: 2 tab Tamsulosin HCl (Flomax) 0.4 mg PO DAILY [facility] Last Admin: 12/16/16 09:43 Dose: 0.4 mg - Labs Labs: 12/16/16 05:45 12/16/16 05:45 - Respiratory Exam Respiratory Exam: Clear to Ausculation Bilateral - Cardiovascular Exam Cardiovascular Exam: REGULAR RHYTHM, +S1, +S2 - Additional Findings Additional findings: H/H 7.9/23.6 Assessment and Plan - Assessment and Plan (Free Text) Plan: PT TO RECEIVE 2 MORE UNITS OF RBCS TODAY
[2016-12-17 07:07] LABS: BASO % 0.4 % (0.0-2.0); EOS # 0.4 K/uL (0.0-0.7); EOS % 6.2 % (0.0-4.0); HEMATOCRIT 25.4 % (35.0-51.0); LYMPH # 0.6 K/uL (1.0-4.3); LYMPH % 9.5 % (20.0-40.0); MEAN CELL VOLUME 86.2 fl (80.0-94.0); MEAN CORPUSCULAR HEMOGLOBIN 27.8 pg (27.0-31.0); MEAN CORPUSCULAR HGB CONC 32.3 g/dL (33.0-37.0); MEAN PLATELET VOLUME 9.1 fl (7.2-11.7); MONO # 0.9 K/uL (0.0-0.8); MONO % 13.9 % (0.0-10.0); NEUT # 4.4 K/uL (1.8-7.0); RED CELL DISTRIBUTION WIDTH 13.9 % (11.5-14.5); WHITE BLOOD COUNT 6.2 K/uL (4.8-10.8)
[2016-12-17 07:33] LABS: CALCIUM 8.5 mg/dL (8.4-10.2); POTASSIUM 4.1 MMOL/L (3.6-5.0)
[2016-12-17] MEDS: Metoprolol Succinate 100 mg XL Tab PO SCH (08:37)
--- NOTE | 2016-12-17 09:01 | CP.PCM.DIS ---
Provider - Provider Date of Admission: 12/13/16 15:44 Attending physician: Amirah Beasley DO Primary care physician: Jose Elias Chan III, MD Consults: Ortho : Dr Chan Cardio : Sharon Time Spent in preparation of Discharge (in minutes): 25 Diagnosis - Discharge Diagnosis (1) Primary osteoarthritis of left knee Status: Chronic (2) Status post revision of total knee replacement Status: Acute (3) Acute blood loss anemia Status: Acute (4) Postoperative anemia due to acute blood loss Status: Acute (5) HTN (hypertension) Status: Chronic (6) History of coronary artery disease Status: Chronic (7) BPH (benign prostatic hyperplasia) Status: Chronic (8) Hyperlipidemia Status: Chronic (9) CKD (chronic kidney disease), stage III Status: Chronic (10) Thrombocytopenia Status: Acute Hospital Course - Lab Results Lab Results: Micro Results 12/13/16 Unknown Knee - Left Gram Stain - Final 12/13/16 Unknown Knee - Left Wound Culture - Preliminary No growth. 12/13/16 Unknown Knee - Left Gram Stain - Final 12/13/16 Unknown Knee - Left Wound Culture - Preliminary No growth. 12/13/16 Unknown Knee - Left Gram Stain - Final 12/13/16 Unknown Knee - Left Wound Culture - Preliminary No growth. 12/13/16 Unknown Knee - Left Gram Stain - Final 12/13/16 Unknown Knee - Left Wound Culture - Preliminary No growth. 12/13/16 Unknown Knee - Left Gram Stain - Final 12/13/16 Unknown Knee - Left Wound Culture - Preliminary No growth. 12/13/16 Unknown Knee - Left Gram Stain - Final 12/13/16 Unknown Knee - Left Wound Culture - Preliminary No growth. 12/13/16 Unknown Knee - Left Gram Stain - Final 12/13/16 Unknown Knee - Left Wound Culture - Final Coagulase Neg Staphylococcus 12/13/16 09:09 Knee - Left Gram Stain - Final 12/13/16 09:09 Knee - Left Anaerobic Culture - Final NO ANAEROBES ISOLATED. 12/13/16 09:09 Knee - Left Wound Culture - Preliminary No growth. 12/13/16 09:09 Other: Please Indicate Mycobacterial Culture - Preliminary 12/13/16 09:09 Knee Left Fungal Culture - Preliminary Most Recent Lab Values WBC 6.2 K/uL (4.8-10.8) 12/17/16 05:45 RBC 2.95 Mil/uL (4.40-5.90) L 12/17/16 05:45 Hgb 8.2 g/dL (12.0-18.0) L 12/17/16 05:45 Hct 25.4 % (35.0-51.0) L 12/17/16 05:45 MCV 86.2 fl (80.0-94.0) 12/17/16 05:45 MCH 27.8 pg (27.0-31.0) 12/17/16 05:45 MCHC 32.3 g/dL (33.0-37.0) L 12/17/16 05:45 RDW 13.9 % (11.5-14.5) 12/17/16 05:45 Plt Count 78 K/uL (130-400) L 12/17/16 05:45 MPV 9.1 fl (7.2-11.7) 12/17/16 05:45 Neut % (Auto) 70.0 % (50.0-75.0) 12/17/16 05:45 Lymph % (Auto) 9.5 % (20.0-40.0) L 12/17/16 05:45 [place] % (Auto) 13.9 % (0.0-10.0) H 12/17/16 05:45 Eos % (Auto) 6.2 % (0.0-4.0) H 12/17/16 05:45 Baso % (Auto) 0.4 % (0.0-2.0) 12/17/16 05:45 Neut # 4.4 K/uL (1.8-7.0) 12/17/16 05:45 Lymph # 0.6 K/uL (1.0-4.3) L 12/17/16 05:45 [place] # 0.9 K/uL (0.0-0.8) H 12/17/16 05:45 Eos # 0.4 K/uL (0.0-0.7) 12/17/16 05:45 Baso # 0.0 K/uL (0.0-0.2) 12/17/16 05:45 Neutrophils % (Manual) 83 % (42-75) H 12/14/16 05:45 Lymphocytes % (Manual) 8 % (20-50) L 12/14/16 05:45 Monocytes % (Manual) 9 % (0-10) 12/14/16 05:45 Platelet Estimate Decreased (NORMAL) L 12/14/16 05:45 Large Platelets Present 12/14/16 05:45 Hypochromasia (manual) Slight 12/14/16 05:45 Tear Drop Cells Slight 12/14/16 05:45 Ovalocytes Slight 12/14/16 05:45 Schistocytes Slight 12/14/16 05:45 Sodium 139 mmol/l (132-148) 12/17/16 05:45 Potassium 4.1 MMOL/L (3.6-5.0) 12/17/16 05:45 Chloride 106 mmol/L (98-107) 12/17/16 05:45 Carbon Dioxide 28 mmol/L (22-30) 12/17/16 05:45 Anion Gap 9 (10-20) L 12/17/16 05:45 BUN 33 mg/dl (9-20) H 12/17/16 05:45 Creatinine 1.7 mg/dL (0.8-1.5) H 12/17/16 05:45 Est GFR ( Amer) 48 12/17/16 05:45 Est GFR (Non-Af Amer) 39 12/17/16 05:45 POC Glucose (mg/dL) 156 mg/dL (65-110) H 12/16/16 11:28 Random Glucose 102 mg/dL (75-110) 12/17/16 05:45 Calcium 8.5 mg/dL (8.4-10.2) 12/17/16 05:45 Fluid Type Synovial fluid 12/13/16 Unknown Synovial WBC 72.0 /mm3 (0.0-150.0) 12/13/16 Unknown Synovial RBC 08336.0 /mm3 (0.0-0.0) H 12/13/16 Unknown Synovial Neutrophils 21.0 % (0-0) H 12/13/16 Unknown Synovial Lymphocytes 65.0 % (0-0) H 12/13/16 Unknown Synov Monos/Macrophage 14 % (0-0) H 12/13/16 Unknown Synovial Fluid Comment Light red 12/13/16 Unknown Blood Type O POSITIVE 12/16/16 08:25 Blood Type Confirm O POSITIVE 12/13/16 07:42 Antibody Screen Negative 12/16/16 08:25 Crossmatch See Detail 12/16/16 08:25 BBK History Checked Patient has bt 12/16/16 08:25 - Hospital Course Hospital Course: 76 year old male PMH of Osteoarthritis with hx of Left TKR , LEONARDO, hypertension, hyperlipidemia, former smoker, renal insufficiency, BPH presented for scheduled L total knee replacement . Primary Osteoarthritis with hx of Failed TKR s/p Revision TKR Ortho : Dr Chan - Pain controlled on current pain mgt - PT/OT consulted - Hemovac was d/c - Incentive spirometry - received Ancef for abx proph Acute Blood Loss Anemia, post op Transfused 5 units PRBC received Venofer - started Ferrous Sulfate - hemodynamically stable Thrombocytopenia - pt came in with sl low Platelet - 116 , dropped to 78 - will cont to monitor - d/c Lovenox - Stopped ASA, Plavix - FFP transfusion CAD history -HOLD ASA, plavix -Cardiology consult with Dr. Herrera - pt denies any CP, no SOB Hypertension -continue amlodipine, metoprolol Hyperlipidemia, stable Chronic Kidney Disease stage III Crea 1.7 , better than yesterday , will cont to monitor BPH -cont flomax VTE ppx SCD no anticoag sec to thrombocytopenia Discharge Exam - Head Exam Head Exam: NORMAL INSPECTION, NORMOCEPHALIC - Eye Exam Eye Exam: EOMI, Normal appearance Pupil Exam: NORMAL ACCOMODATION - ENT Exam ENT Exam: Mucous Membranes Moist, Normal External Ear Exam - Neck Exam Neck exam: Full Rom - Respiratory Exam Respiratory Exam: NORMAL BREATHING PATTERN. absent: Wheezes, Respiratory Distress - Cardiovascular Exam Cardiovascular Exam: REGULAR RHYTHM, +S1, +S2 - GI/Abdominal Exam GI & Abdominal Exam: Normal Bowel Sounds, Soft. absent: Tenderness - Extremities Exam Extremities exam: normal capillary refill, pedal pulses present Additional comments: no calf tenderness left knee with dressing and immobilizer - Back Exam Back exam: FULL ROM. absent: CVA tenderness (L), CVA tenderness (R) - Neurological Exam Neurological exam: Alert, CN II-XII Intact, Oriented x3, Reflexes Normal - Psychiatric Exam Psychiatric exam: Normal Affect, Normal Mood - Skin Skin Exam: Dry, Normal Color, Warm Discharge Plan - Follow Up Plan Condition: GOOD Disposition: TRANSF TO SNF Additional Instructions: d/c pt to TCU Referrals: Jose Elias Chan III, MD [Primary Care Provider] -
--- NOTE | 2016-12-17 10:09 | CP.PCM.PN ---
Subjective - Date & Time of Evaluation Date of Evaluation: 12/17/16 Time of Evaluation: 08:15 - Subjective Subjective: NO NEW COMPLAINTS Objective - Vital Signs/Intake and Output Vital Signs (last 24 hours): Temp Pulse Resp BP Pulse Ox 98.8 F 73 18 117/65 96 12/17/16 08:02 12/17/16 08:37 12/17/16 08:02 12/17/16 08:37 12/17/16 08:02 Intake and Output: 12/17/16 12/17/16 06:59 18:59 Intake Total 565 Output Total 600 Balance -35 - Medications Medications: Current Medications Acetaminophen (Tylenol 325mg Tab) 650 mg PO Q6 PRN PRN Reason: Fever >100.4 F Last Admin: 12/15/16 10:15 Dose: 650 mg Allopurinol (Zyloprim) 100 mg PO DAILY [facility] Last Admin: 12/17/16 08:39 Dose: 100 mg Docusate Sodium (Colace) 100 mg PO BID [facility] Last Admin: 12/17/16 08:38 Dose: 100 mg Enoxaparin Sodium (Lovenox) 40 mg SC DAILY [facility] PRN Reason: Protocol Ferrous Sulfate (Feosol) 325 mg PO TID [facility] Last Admin: 12/17/16 08:38 Dose: 325 mg Home Med (Febuxostat [Uloric]) 40 mg PO DAILY [facility] Iron Sucrose 100 mg/ Sodium (Chloride) 105 mls @ 105 mls/hr IVPB DAILY [facility] Stop: 12/19/16 09:59 Last Admin: 12/17/16 09:42 Dose: 105 mls/hr Metoprolol Succinate (Toprol Xl) 100 mg PO DAILY [facility] Last Admin: 12/17/16 08:37 Dose: 100 mg Naloxone HCl (Narcan) 0.1 mg IVP Q2M PRN PRN Reason: Opiate reversal Oxycodone/Acetaminophen (Percocet 5/325 Mg Tab) 1 tab PO Q4 PRN PRN Reason: Pain, moderate (4-7) Stop: 12/17/16 14:22 Oxycodone/Acetaminophen (Percocet 5/325 Mg Tab) 2 tab PO Q6 PRN PRN Reason: Pain, severe (8-10) Stop: 12/17/16 14:22 Last Admin: 12/15/16 20:16 Dose: 2 tab Tamsulosin HCl (Flomax) 0.4 mg PO DAILY [facility] Last Admin: 12/17/16 08:37 Dose: 0.4 mg - Labs Labs: 12/17/16 05:45 12/17/16 05:45 - Respiratory Exam Respiratory Exam: Clear to Ausculation Bilateral - Cardiovascular Exam Cardiovascular Exam: REGULAR RHYTHM, +S1, +S2 - Additional Findings Additional findings: HGB 8.2 AFTER 4U RBS K+ 4.1 Assessment and Plan - Assessment and Plan (Free Text) Assessment: LEFT KNEE SURGICAL REVISION HYPERTENSION Plan: CONTINUE METOPROLOL AND LOVENOX FOR DISCHARGE TO TCU
--- NOTE | 2016-12-17 10:55 | OP ---
PROCEDURE DATE: 12/13/2016 PREOPERATIVE DIAGNOSIS: Failed painful left total knee replacement. POSTOPERATIVE DIAGNOSES: Loosened femoral component, subsided tibial component with loosening and de struction of the medial tibial condyle. SURGEON: Jose Elias Chan MD INSURANCE ACCOUNT SPECIALIST: Lola Ramos, certified registered nursing certified surgical first assistant It should be noted that the certified nursing certified surgical first assistant, Lola Ramos, was essential to the com pletion of the operative goal. SECOND SECURITY SHIFT MANAGER: Hector Abdul ANESTHESIA: Administered by Dr. Gonsales, general endotracheal. PREOPERATIVE DIAGNOSIS: Status post painful revision left total knee replacement. POSTOPERATIVE DIAGNOSES: Loosened femoral component, loosened tibial component, destruction of media l tibial condyle. OPERATIVE FINDINGS: Left total knee replacement with loosened femoral component and a subsided tibia l component. There is evidence of posterior capsular contracture, lateral patella contracture and co mpromise of the patella ligament. PROCEDURES: 1. Complex revision left total knee. 2. Removal of previous total knee components. 3. Repair of patella ligament. 4. Bulk allograft with internal fixation, medial tibial condyle. 5. Posterior capsule release. 6. Lateral patella retinacular release. OPERATIVE PROCEDURE: After having obtained informed consent, after thoroughly discussing the pros, c ons, risks and benefits of a revision knee replacement, the possibility of mechanical failure, infect ion, thromboembolic disease, nerve injury, leg length inequality, secondary or tertiary surgery is di scussed. The patient identified in the supine position with all bony prominences well padded, the le ft lower extremity is prepped and free draped in the usual fashion for lower extremity surgery. The tourniquet had been applied, but is not yet inflated. After exsanguinating the wound using a 6 inch Esmarch bandage, the tourniquet, which had been applied, is inflated to 350 mmHg. The initial incisi on is identified and the initial incision is extended 2 fingerbreadths proximally, 2 fingerbreadths d istally. The skin incision is carried down through the skin and subcutaneous tissue and an ellipse o f skin and subcutaneous tissue is removed. At this point in time, taking great care to monitor the d epth of the incision, carrying the incision down to the level of the prepatellar bursa where the bloo d supply comes in on the subcutis, the flaps are elevated medially and laterally to expose the medial and lateral retinaculum. A medial arthrotomy is accomplished. Fluid is sent for a Gram stain with number of white cells per high power field. Dissection is carried around posteromedially to the dire ct head of the semimembranosis tendon. A portion of the patella ligament is elevated. Great care is taken not to avulse the patella ligament. Later repair of the patella ligament is necessary because of the amount of compromise of the patella ligament. This having been accomplished, a lateral sena lar retinacular release is accomplished and a partial synovectomy anteriorly and posteriorly is accom plished. Because of the lateral patellar retinacular contracture, a lateral patellar retinacular rel ease is accomplished, anterior and posterior synovectomy is accomplished. This having been accomplis hed, the patella is everted, again taking great care to protect the patella ligament. Extensive ante rior and posterior synovectomy having been accomplished, scar tissue on the posterior aspect of the j oint is noted. Medial arthrotomy having been accomplished, the tibia is dislocated anteriorly. Ther e is found to be marked compromise of the medial tibial condyle with an extraordinary amount of cemen t supporting the tibial component medially. This having been accomplished, the tibial polyethylene i s removed and attention is turned to the femur. The interface between the cement and the femur was d eveloped using an oscillating saw and then the AcuDriver. This having been accomplished, this was fo llowed in all zones with minimal loss of bone. The femoral component is removed. The tibial compone nt is more challenging. Using initially the oscillating saw, the oscillating saw was carried around laterally and anteriorly to develop a plane between the cement and the component. This having been a ccomplished, using the Midas with the pencil attachment, the cement is compromised throughout the med ial aspect of the tibial plateau. Careful technique is noted at this point having been accomplished, the plane developed is accomplished medially, anteriorly, laterally and posteriorly across the poste rior femoral condyle. This having been accomplished, the tibial component is loosened and removed. Great care was taken with the bur and the Midas [place] to remove all cement. This having been accomplis hed, cement having been removed, the tibial component is removed and excess cement is removed from th e femur as well. At this point in time, before removing the femoral component, the position of the c omponent in the joint line is marked with the MailTime device on the anterior aspect of the femur, th e measurement device on the anterior aspect of the femur. This having been accomplished, further fabien ridement of the cement on the tibia is accomplished using Midas [place] bur and reamers. Reaming is villafana ied out to a #18 on the femoral side. The distal cut is set at 2 degrees of valgus. The distal cut is accomplished in line with the epicondyles. This having been accomplished, the 4-in-1 block is law richard distally. The distal cutting block is placed of the appropriate size along the epicondylar axis. Anterior and posterior osteotomies are accomplished as well as chamfer cuts. This having been acco mplished, the notch cut is well placed. The notch cut having been placed, the posterior capsule is f ound to be contracted. A careful posterior capsular release is accomplished using an oscillating saw , taking great care not to injure the posterior vasculature. At this point in time, the tibia is rep aired. It should be noted that the allograft is used to replace entirely the medial tibial condyle. All the cement is removed. At this point in time, cement is removed on the articular cartilage of t he femoral head allograft. The femoral head allograft having been employed, the femoral head is pinn ed and the femoral head is fixed with 4 cancellous AO screws. The fixation is found to be excellent. At this point in time, the tibial cut is accomplished in 0 degrees of varus valgus and 0 degrees of posterior slope. This having been accomplished, morselized graft from the femoral head is used as a bed for the allograft femoral condyle in the medial tibial plateau and this way the medial tibial pl ateau is reconstituted. This having been accomplished, the drilling is accomplished with a 2.5 drill bit, sounding, 4 screws are placed. The 4 screws were placed, fixation was accomplished. At this p oint in time, the box cut in the tibia is accomplished and sequential reaming is carried out to accep t an 80 mm x 12 mm stemmed tibial component. This having been accomplished, reaming having been acco mplished, open reduction internal fixation of the tibial allograft is accomplished using the aforemen tioned AO technique. Trialing is accomplished to the appropriate size femoral stem and component, an d the #3 tibial component with the 22 mm polyethylene. Flexion/extension gap is found to be excellen t and this having been accomplished, attention is turned to the patella. Freehand patella osteotomy is accomplished. The patella is debrided and the lateral patellar retinacular release is accomplishe d. Posterior capsular release is accomplished and this having been accomplished, the wound is thorou ghly irrigated. Trialing having been accomplished, patella balance having been accomplished, flexion /extension balance having been accomplished, the tibia, femur and patella are prepared using the Wate rpik. The appropriate size femoral component is cemented, tibial component and the polyethylene sharpe lla component. The polyethylene is fitted and found to be excellent and this having been accomplishe d, the patella ligament is reinforced/repaired using interrupted [place] fixation suture and Arthrex f ixation sutures. This having been accomplished, the wound is thoroughly irrigated. Patella ligament having been repaired/reconstructed, the wound is irrigated. The tourniquet was deflated. Hemostasi s is controlled with the Aquamantys. The wound is thoroughly irrigated, is employed. Closure is in layers, accomplished with 0 Quill, FiberWire, Quill and this having been accomplished, closure is in layers with FiberWire, Quill, Vicryl, and bryon for skin over an 1/8 inch suction Hemovac neida in. Gene Riley compression dressing and knee immobilizer is applied. Jose Elias Chan MD cc: [id number] TT: 12/17/2016 10:54:55 en
[2016-12-18 00:14] VITALS: BP 125/67; PULSE 56; RESP 20; TEMP 98.5; O2SAT 99
== END 2016-12-17 11:00 | DRG 467 ==
LOC: H.OPSURG 06:21 → H.TEL 15:44
PROVIDERS: ADMIT Student in an Organized Health Care Education/Training Program; ATTEND Student in an Organized Health Care Education/Training Program
PROC: 0SPD09Z Removal of Liner from Left Knee Joint, Open Approach (ICD-10-PCS; 2016-12-13)
PROC: 0SPD0JZ Removal of Synthetic Substitute from Left Knee Joint, Open Approach (ICD-10-PCS; 2016-12-13)
PROC: 0SUD09C Supplement Left Knee Joint with Liner, Patellar Surface, Open Approach (ICD-10-PCS; 2016-12-13)
PROC: 0SQD0ZZ Repair Left Knee Joint, Open Approach (ICD-10-PCS; 2016-12-13)
PROC: 0SBD0ZZ Excision of Left Knee Joint, Open Approach (ICD-10-PCS; 2016-12-13)
PROC: 0SRD0J9 Replacement of Left Knee Joint with Synthetic Substitute, Cemented, Open Approach (ICD-10-PCS; principal; 2016-12-13 07:45)
PROC: 30233K1 Transfusion of Nonautologous Frozen Plasma into Peripheral Vein, Percutaneous Approach (ICD-10-PCS; 2016-12-15)
PROC: 30233N1 Transfusion of Nonautologous Red Blood Cells into Peripheral Vein, Percutaneous Approach (ICD-10-PCS; 2016-12-15)
DX: T84.84XA Pain due to internal orthopedic prosthetic devices, implants and grafts, initial encounter (principal); D62 Acute posthemorrhagic anemia; D69.6 Thrombocytopenia, unspecified; N18.3 Chronic kidney disease, stage 3 (moderate); Z96.652 Presence of left artificial knee joint; T84.033A Mechanical loosening of internal left knee prosthetic joint, initial encounter; E78.5 Hyperlipidemia, unspecified; G47.33 Obstructive sleep apnea (adult) (pediatric); I12.9 Hypertensive chronic kidney disease with stage 1 through stage 4 chronic kidney disease, or unspecified chronic kidney disease; N40.0 Benign prostatic hyperplasia without lower urinary tract symptoms; M65.9 Synovitis and tenosynovitis, unspecified; M17.12 Unilateral primary osteoarthritis, left knee; I25.10 Atherosclerotic heart disease of native coronary artery without angina pectoris; Z87.891 Personal history of nicotine dependence; Y83.1 Surgical operation with implant of artificial internal device as the cause of abnormal reaction of the patient, or of later complication, without mention of misadventure at the time of the procedure; M24.562 Contracture, left knee

== ENCOUNTER 2016-12-17 18:50 | Inpatient (IN) | payer MEDICARE ==
[2016-12-18 00:41] VITALS: BMI 35.9
[2016-12-18 03:01] VITALS: RESP 20
[2016-12-18] MEDS ORDERED: Tuberculin 5 Units/0.1 ml Inj ID ONE (03:13)
[2016-12-18 08:04] LABS: BASO % 0.6 % (0.0-2.0); EOS # 0.4 K/uL (0.0-0.7); EOS % 7.4 % (0.0-4.0); HEMOGLOBIN 8.8 g/dL (12.0-18.0); LYMPH # 0.8 K/uL (1.0-4.3); MEAN CELL VOLUME 87.1 fl (80.0-94.0); MEAN CORPUSCULAR HEMOGLOBIN 28.3 pg (27.0-31.0); MEAN CORPUSCULAR HGB CONC 32.5 g/dL (33.0-37.0); MEAN PLATELET VOLUME 8.2 fl (7.2-11.7); MONO # 0.8 K/uL (0.0-0.8); MONO % 13.6 % (0.0-10.0); NEUT # 3.9 K/uL (1.8-7.0); NEUT % 65.4 % (50.0-75.0); RBC 3.1 Mil/uL (4.40-5.90); RED CELL DISTRIBUTION WIDTH 14.4 % (11.5-14.5); WHITE BLOOD COUNT 5.9 K/uL (4.8-10.8)
[2016-12-18 08:15] LABS: BLOOD UREA NITROGEN 28 mg/dl (9-20); CALCIUM 8.6 mg/dL (8.4-10.2); GFR AFRICAN-AMERICAN > 60; GFR NON-AFRICAN AMERICAN 54
[2016-12-18] MEDS: Metoprolol Succinate 100 mg XL Tab PO SCH (09:16)
[2016-12-18] MEDS: Oxycodone/Acetaminophen 5/325 mg Tab PO PRN ×2 (09:22→16:48)
--- NOTE | 2016-12-18 10:38 | CP.PCM.HP ---
History of Present Illness - History of Present Illness History of Present Illness: 76 yo male with history of OA, LEONARDO, HTN, HLD, renal insufficiency and BPH had left TKR on 12/13/2016. Post op days were marked with anemia secondary to blood loss and thrombocytopenia. Patient received 5 units of PRBC and Venofer. He continued to ooze minimal amount of blood on the surgical site during therapy and when placed on CPM machine. Aside from that patient was stable and was transferred to TCU for PT/OT. Present on Admission - Present on Admission Any Indicators Present on Admission: No History of DVT/PE: No History of Uncontrolled Diabetes: No Urinary Catheter: No Decubitus Ulcer Present: No Review of Systems - Review of Systems All systems: reviewed and no additional remarkable complaints except (aside from those mentioned above, 12 point system review were negative by me) Past Patient History - Tetanus Immunizations Tetanus Immunization: Unknown - Past Medical History & Family History Past Medical History?: Yes Past Family History: Reviewed and not pertinent - Past Social History Smoking Status: Former Smoker Alcohol: None Drugs: Denies - CARDIAC Hx Cardiac Disorders: Yes Hx Hypercholesterolemia: Yes Hx Hypertension: Yes - PULMONARY Hx Respiratory Disorders: No Hx Sleep Apnea: Yes - NEUROLOGICAL Hx Neurological Disorder: No - HEENT Hx HEENT Problems: Yes Other/Comment: wears glasses - RENAL Hx Chronic Kidney Disease: Yes Other/Comment: renal insufficiency - ENDOCRINE/METABOLIC Hx Endocrine Disorders: No - HEMATOLOGICAL/ONCOLOGICAL Hx Blood Disorders: No Hx Anemia: Yes Hx Blood Transfusions: Yes Hx Blood Transfusion Reaction: No - INTEGUMENTARY Hx Dermatological Problems: No - MUSCULOSKELETAL/RHEUMATOLOGICAL Hx Arthritis: Yes Hx Falls: No Hx Osteoarthritis: Yes - GASTROINTESTINAL Hx Gastrointestinal Disorders: No - GENITOURINARY/GYNECOLOGICAL Hx Genitourinary Disorders: Yes Hx Prostate Problems: Yes - PSYCHIATRIC Hx Substance Use: No - SURGICAL HISTORY Hx Surgeries: Yes Hx Joint Replacement: Yes (TOTAL LEFT KNEE REPLACEMENT X2) Other/Comment: LASER PROSTATE SX. 12/13/16 s/p ltkr revision - ANESTHESIA Hx Anesthesia: Yes Hx Anesthesia Reactions: No Hx Malignant Hyperthermia: No Meds Allergies/Adverse Reactions: Allergies Allergy/AdvReac Type Severity Reaction Status Date / Time No Known Allergies Allergy Verified 12/18/16 00:41 Physical Exam - Constitutional Appears: No Acute Distress - Head Exam Head Exam: ATRAUMATIC - Eye Exam Eye Exam: absent: Scleral icterus - ENT Exam ENT Exam: Mucous Membranes Moist - Neck Exam Neck exam: Negative for: Meningismus - Respiratory Exam Respiratory Exam: absent: Rhonchi, Wheezes, Respiratory Distress - Cardiovascular Exam Cardiovascular Exam: REGULAR RHYTHM, +S1, +S2 - GI/Abdominal Exam GI & Abdominal Exam: Soft. absent: Tenderness - Rectal Exam Rectal Exam: Deferred - Extremities Exam Extremities exam: Negative for: full ROM (limited ROM post surgery on left knee) - Back Exam Back exam: NORMAL INSPECTION - Neurological Exam Neurological exam: Alert, Oriented x3 - Psychiatric Exam Psychiatric exam: Normal Affect - Skin Skin Exam: Dry, Intact Results - Vital Signs Recent Vital Signs: Last Vital Signs Temp 98.1 F 12/18/16 08:29 Pulse 85 12/18/16 09:16 Resp 20 12/18/16 08:29 BP 150/89 12/18/16 09:16 Pulse Ox 100 12/18/16 08:29 - Labs Result Diagrams: 12/18/16 06:00 12/18/16 06:00 Labs: Laboratory Results - last 24 hr 12/18/16 12/18/16 06:00 06:00 WBC 5.9 RBC 3.10 L Hgb 8.8 L Hct 27.0 L MCV 87.1 MCH 28.3 MCHC 32.5 L RDW 14.4 Plt Count 102 L D MPV 8.2 Neut % (Auto) 65.4 Lymph % (Auto) 13.0 L [place] % (Auto) 13.6 H Eos % (Auto) 7.4 H Baso % (Auto) 0.6 Neut # 3.9 Lymph # 0.8 L [place] # 0.8 Eos # 0.4 Baso # 0.0 Sodium 139 Potassium 3.9 Chloride 107 Carbon Dioxide 26 Anion Gap 11 BUN 28 H Creatinine 1.3 Est GFR ( Amer) > 60 Est GFR (Non-Af Amer) 54 Random Glucose 95 Calcium 8.6 Assessment & Plan (1) Primary osteoarthritis of left knee Status: Chronic Comment: S/P Revision of Left TKR, day 5. pain only during therapy and CPM but controlled with Percocet. continue PT/OT (2) Acute blood loss anemia Status: Acute Comment: received 5 units of PRBC on the regular floor and Venofer. Hgb: 8.8. continue Ferrous SO4 (3) Thrombocytopenia Status: Acute Comment: Platelets: 102 (trending up). continue hold on anti-platelets and anti -coagulant. continue monitoring CBC (4) History of coronary artery disease Status: Chronic Comment: asymptomatic. continue Metoprolol. continue hold on Plavix and ASA. pt was not put on statin by PCP even though history was positive for CAD and HLD (5) HTN (hypertension) Status: Chronic Comment: BP stable. continue Metoprolol (6) Hyperlipidemia Status: Chronic Comment: not on statin. lipid profile in am (7) CKD (chronic kidney disease), stage III Status: Chronic Comment: renal function continue to improve. BUN: 28. Creat: 1.3 (8) BPH (benign prostatic hyperplasia) Status: Chronic Comment: on Flomax
--- NOTE | 2016-12-18 11:26 | CP.PCM.PN ---
Subjective - Date & Time of Evaluation Date of Evaluation: 12/18/16 Time of Evaluation: 10:30 - Subjective Subjective: NO COMPLAINTS EXCEPT FOR SURGICAL SITE PAIN Objective - Vital Signs/Intake and Output Vital Signs (last 24 hours): Temp Pulse Resp BP Pulse Ox 98.1 F 85 20 150/89 100 12/18/16 08:29 12/18/16 09:16 12/18/16 08:29 12/18/16 09:16 12/18/16 08:29 - Medications Medications: Current Medications Acetaminophen (Tylenol 325mg Tab) 650 mg PO Q6 PRN PRN Reason: Fever >100.4 F Allopurinol (Zyloprim) 100 mg PO DAILY [facility] Last Admin: 12/18/16 09:20 Dose: 100 mg Docusate Sodium (Colace) 100 mg PO BID [facility] Last Admin: 12/18/16 09:15 Dose: 100 mg Ferrous Sulfate (Feosol) 325 mg PO TID [facility] Last Admin: 12/18/16 09:15 Dose: 325 mg Metoprolol Succinate (Toprol Xl) 100 mg PO DAILY [facility] Last Admin: 12/18/16 09:16 Dose: 100 mg Oxycodone/Acetaminophen (Percocet 5/325 Mg Tab) 1 tab PO Q4 PRN PRN Reason: Pain, moderate (4-7) Stop: 12/21/16 01:28 Last Admin: 12/18/16 09:22 Dose: 1 tab Tamsulosin HCl (Flomax) 0.4 mg PO DAILY [facility] Last Admin: 12/18/16 09:16 Dose: 0.4 mg - Labs Labs: 12/18/16 06:00 12/18/16 06:00 - Respiratory Exam Respiratory Exam: Clear to Ausculation Bilateral - Cardiovascular Exam Cardiovascular Exam: REGULAR RHYTHM, +S1, +S2 - Additional Findings Additional findings: H/H 02/20 Assessment and Plan - Assessment and Plan (Free Text) Assessment: S/P LEFT KNEE SURGERY HYPERTENSION BPH Plan: CONTINUE METOPROLOL, FEOSOL AND FLOMAX CONTINUE REHAB
--- NOTE | 2016-12-18 12:50 | CP.PCM.PN ---
Subjective - Date & Time of Evaluation Date of Evaluation: 12/18/16 Time of Evaluation: 12:45 - Subjective Subjective: S-Pt with minimal post op discomfort Objective - Vital Signs/Intake and Output Vital Signs (last 24 hours): Temp Pulse Resp BP Pulse Ox 98.1 F 85 20 150/89 100 12/18/16 08:29 12/18/16 09:16 12/18/16 08:29 12/18/16 09:16 12/18/16 08:29 - Medications Medications: Current Medications Acetaminophen (Tylenol 325mg Tab) 650 mg PO Q6 PRN PRN Reason: Fever >100.4 F Allopurinol (Zyloprim) 100 mg PO DAILY [facility] Last Admin: 12/18/16 09:20 Dose: 100 mg Docusate Sodium (Colace) 100 mg PO BID [facility] Last Admin: 12/18/16 09:15 Dose: 100 mg Ferrous Sulfate (Feosol) 325 mg PO TID [facility] Last Admin: 12/18/16 12:25 Dose: 325 mg Metoprolol Succinate (Toprol Xl) 100 mg PO DAILY [facility] Last Admin: 12/18/16 09:16 Dose: 100 mg Oxycodone/Acetaminophen (Percocet 5/325 Mg Tab) 1 tab PO Q4 PRN PRN Reason: Pain, moderate (4-7) Stop: 12/21/16 01:28 Last Admin: 12/18/16 09:22 Dose: 1 tab Tamsulosin HCl (Flomax) 0.4 mg PO DAILY [facility] Last Admin: 12/18/16 09:16 Dose: 0.4 mg - Labs Labs: 12/18/16 06:00 12/18/16 06:00 - Skin Additional comments: Objective systemic Musculoskeletal stance/gait- defrred L knee wound beign/dressing changed No calf tenderness/no Randy's orthopedicallys stable Assessment and Plan - Assessment and Plan (Free Text) Assessment: A- s/p massive TKR Revision/Reconstruction P- orthop[aedically stable repeat Xray
[2016-12-19 07:11] LABS: HEMOGLOBIN 8.8 g/dL (12.0-18.0); MEAN CELL VOLUME 87.9 fl (80.0-94.0); MEAN CORPUSCULAR HEMOGLOBIN 28.4 pg (27.0-31.0); MEAN CORPUSCULAR HGB CONC 32.3 g/dL (33.0-37.0); RBC 3.11 Mil/uL (4.40-5.90); RED CELL DISTRIBUTION WIDTH 14.9 % (11.5-14.5); WHITE BLOOD COUNT 6.3 K/uL (4.8-10.8)
[2016-12-19 07:12] LABS: BLOOD UREA NITROGEN 25 mg/dl (9-20); CALCIUM 8.7 mg/dL (8.4-10.2); GFR AFRICAN-AMERICAN > 60; GFR NON-AFRICAN AMERICAN 54; HDL CHOLESTEROL 33 MG/DL (30-70)
[2016-12-19 07:23] LABS: LDL CHOLESTEROL 69 mg/dL (0-129)
[2016-12-19] MEDS: Metoprolol Succinate 100 mg XL Tab PO SCH (08:18)
[2016-12-19] MEDS: Oxycodone/Acetaminophen 5/325 mg Tab PO PRN ×2 (10:45→14:58)
--- NOTE | 2016-12-19 11:25 | RAD ---
PROCEDURE: Left Knee Radiographs. HISTORY: Status post left knee revision COMPARISON: None. FINDINGS: BONES: Left-sided total knee arthroplasty again noted unchanged in appearance from prior study. Satisfactory alignment. Moderate soft tissue swelling and joint effusion. Subcutaneous emphysema has undergone some interval resorption. JOINTS: Normal. No osteoarthritis. JOINT EFFUSION: Moderate-sized joint effusion OTHER FINDINGS: None. IMPRESSION: Left-sided total knee arthroplasty again noted unchanged in appearance from prior study. Satisfactory alignment. Moderate soft tissue swelling and joint effusion Subcutaneous emphysema has undergone some interval resorption. .
[2016-12-20] MEDS: Oxycodone/Acetaminophen 5/325 mg Tab PO PRN ×4 (06:39→20:02)
[2016-12-20] MEDS: Metoprolol Succinate 100 mg XL Tab PO SCH (08:40)
--- NOTE | 2016-12-20 13:46 | CP.PCM.PN ---
Subjective - Date & Time of Evaluation Date of Evaluation: 12/20/16 Time of Evaluation: 13:00 - Subjective Subjective: NO CHEST PAIN OR SOB Objective - Vital Signs/Intake and Output Vital Signs (last 24 hours): Temp Pulse Resp BP Pulse Ox 97.3 F L 90 20 122/80 99 12/20/16 08:31 12/20/16 08:40 12/20/16 08:31 12/20/16 08:40 12/20/16 08:31 - Medications Medications: Current Medications Acetaminophen (Tylenol 325mg Tab) 650 mg PO Q6 PRN PRN Reason: Fever >100.4 F Allopurinol (Zyloprim) 100 mg PO DAILY [facility] Last Admin: 12/20/16 08:40 Dose: 100 mg Aspirin (Aspirin Chewable) 81 mg PO BID [facility] Last Admin: 12/20/16 08:40 Dose: 81 mg Docusate Sodium (Colace) 100 mg PO BID [facility] Last Admin: 12/20/16 08:40 Dose: 100 mg Ferrous Sulfate (Feosol) 325 mg PO TID [facility] Last Admin: 12/20/16 12:40 Dose: 325 mg Metoprolol Succinate (Toprol Xl) 100 mg PO DAILY [facility] Last Admin: 12/20/16 08:40 Dose: 100 mg Oxycodone/Acetaminophen (Percocet 5/325 Mg Tab) 1 tab PO Q4 PRN PRN Reason: Pain, moderate (4-7) Stop: 12/21/16 01:28 Last Admin: 12/20/16 11:04 Dose: 1 tab Tamsulosin HCl (Flomax) 0.4 mg PO DAILY [facility] Last Admin: 12/20/16 08:40 Dose: 0.4 mg - Labs Labs: 12/19/16 05:30 12/19/16 05:30 - Respiratory Exam Respiratory Exam: Clear to Ausculation Bilateral - Cardiovascular Exam Cardiovascular Exam: REGULAR RHYTHM, +S1, +S2 Assessment and Plan - Assessment and Plan (Free Text) Assessment: S/P REVISION OF LEFT KNEE HYPERTENSION Plan: CONTINUE ASPIRIN AND METOPROLOL
[2016-12-21] MEDS: Oxycodone/Acetaminophen 5/325 mg Tab PO PRN ×3 (08:08→14:00)
[2016-12-21] MEDS: Metoprolol Succinate 100 mg XL Tab PO SCH (08:14)
--- NOTE | 2016-12-21 09:44 | CP.PCM.PN ---
Subjective - Date & Time of Evaluation Date of Evaluation: 12/21/16 Time of Evaluation: 08:45 - Subjective Subjective: NO CHEST PAIN OR SOB Objective - Vital Signs/Intake and Output Vital Signs (last 24 hours): Temp Pulse Resp BP Pulse Ox 98.2 F 84 20 139/73 97 12/21/16 08:07 12/21/16 08:14 12/21/16 08:07 12/21/16 08:14 12/21/16 08:07 - Medications Medications: Current Medications Acetaminophen (Tylenol 325mg Tab) 650 mg PO Q6 PRN PRN Reason: Fever >100.4 F Allopurinol (Zyloprim) 100 mg PO DAILY [facility] Last Admin: 12/21/16 08:15 Dose: 100 mg Aspirin (Aspirin Chewable) 81 mg PO BID [facility] Last Admin: 12/21/16 08:13 Dose: 81 mg Docusate Sodium (Colace) 100 mg PO BID [facility] Last Admin: 12/21/16 08:14 Dose: 100 mg Ferrous Sulfate (Feosol) 325 mg PO TID [facility] Last Admin: 12/21/16 08:14 Dose: 325 mg Metoprolol Succinate (Toprol Xl) 100 mg PO DAILY [facility] Last Admin: 12/21/16 08:14 Dose: 100 mg Oxycodone/Acetaminophen (Percocet 5/325 Mg Tab) 1 tab PO Q4 PRN PRN Reason: Pain, severe (8-10) Stop: 12/24/16 08:15 Tamsulosin HCl (Flomax) 0.4 mg PO DAILY [facility] Last Admin: 12/21/16 08:14 Dose: 0.4 mg - Labs Labs: 12/19/16 05:30 12/19/16 05:30 - Respiratory Exam Respiratory Exam: Clear to Ausculation Bilateral - Cardiovascular Exam Cardiovascular Exam: REGULAR RHYTHM, +S1, +S2 Assessment and Plan - Assessment and Plan (Free Text) Assessment: S/P LEFT KNEE SURGERY HYPERTENSION Plan: CONTINUE ASPIRIN AND METOPROLOL CONTINUE PHYSICAL THERAPY
--- NOTE | 2016-12-21 11:23 | CP.PCM.PN ---
Subjective - Date & Time of Evaluation Date of Evaluation: 12/21/16 Time of Evaluation: 10:00 - Subjective Subjective: Pt seen and examined. Claimed he is doing fine. Still with pain on left knee only during therapy and when on CPM but pain less intense than before. Objective - Vital Signs/Intake and Output Vital Signs (last 24 hours): Temp Pulse Resp BP Pulse Ox 98.2 F 84 20 139/73 97 12/21/16 08:07 12/21/16 08:14 12/21/16 08:07 12/21/16 08:14 12/21/16 08:07 - Medications Medications: Current Medications Acetaminophen (Tylenol 325mg Tab) 650 mg PO Q6 PRN PRN Reason: Fever >100.4 F Allopurinol (Zyloprim) 100 mg PO DAILY [facility] Last Admin: 12/21/16 08:15 Dose: 100 mg Aspirin (Aspirin Chewable) 81 mg PO BID [facility] Last Admin: 12/21/16 08:13 Dose: 81 mg Docusate Sodium (Colace) 100 mg PO BID [facility] Last Admin: 12/21/16 08:14 Dose: 100 mg Ferrous Sulfate (Feosol) 325 mg PO TID [facility] Last Admin: 12/21/16 08:14 Dose: 325 mg Metoprolol Succinate (Toprol Xl) 100 mg PO DAILY [facility] Last Admin: 12/21/16 08:14 Dose: 100 mg Oxycodone/Acetaminophen (Percocet 5/325 Mg Tab) 1 tab PO Q4 PRN PRN Reason: Pain, severe (8-10) Stop: 12/24/16 08:15 Tamsulosin HCl (Flomax) 0.4 mg PO DAILY [facility] Last Admin: 12/21/16 08:14 Dose: 0.4 mg - Labs Labs: 12/19/16 05:30 12/19/16 05:30 - Constitutional Appears: No Acute Distress - Head Exam Head Exam: ATRAUMATIC - Eye Exam Eye Exam: absent: Scleral icterus - ENT Exam ENT Exam: Mucous Membranes Moist - Neck Exam Neck Exam: absent: Meningismus - Respiratory Exam Respiratory Exam: absent: Rhonchi, Wheezes, Respiratory Distress - Cardiovascular Exam Cardiovascular Exam: REGULAR RHYTHM, +S1, +S2 - GI/Abdominal Exam GI & Abdominal Exam: Soft. absent: Tenderness - Rectal Exam Rectal Exam: Deferred - Extremities Exam Extremities Exam: Joint Swelling (left knee) - Back Exam Back Exam: NORMAL INSPECTION - Neurological Exam Neurological Exam: Alert, Oriented x3 - Psychiatric Exam Psychiatric exam: Normal Affect - Skin Skin Exam: Dry, Intact Assessment and Plan (1) Primary osteoarthritis of left knee Status: Chronic (2) Acute blood loss anemia Status: Acute (3) Thrombocytopenia Status: Acute (4) History of coronary artery disease Status: Chronic (5) HTN (hypertension) Status: Chronic (6) Hyperlipidemia Status: Chronic (7) CKD (chronic kidney disease), stage III Status: Chronic (8) BPH (benign prostatic hyperplasia) Status: Chronic - Assessment and Plan (Free Text) Assessment: 76 yo male with history of OA, LEONARDO, HTN, renal insufficiency and BPH had undergone left TKR on 12/13/2016. Post op days were marked with anemia secondary to blood loss and thrombocytopenia. Patient received blood transfusion and Venofer. He was transferred to TCU on 12/17/2016 for PT/OT. 1. Osteoarthritis of Left Knee, s/p Revision TKR less pain and only during therapy and when on CPM continue pain management continue PT/OT 2. Acute Blood Loss Anemia Hgb: 8.8 (12/19/2016) continue Ferrous SO4 3. Thrombocytopenia Platelet: 110 4. CAD history asymptomatic continue ASA and Metoprolol 5. Hypertension BP stable continue Metoprolol 6. Chronic Kidney Disease stage II Crea 1.3 probably condition more of renal insufficiency secondary to dehydration 7. BPH continue Flomax 8. DVT prophylaxis on ASA 81mg PO BID as per recommendation from orthopedist
[2016-12-22 07:14] LABS: HEMOGLOBIN 9.2 g/dL (12.0-18.0); MEAN CELL VOLUME 88.7 fl (80.0-94.0); MEAN CORPUSCULAR HEMOGLOBIN 27.9 pg (27.0-31.0); MEAN CORPUSCULAR HGB CONC 31.5 g/dL (33.0-37.0); RBC 3.29 Mil/uL (4.40-5.90); RED CELL DISTRIBUTION WIDTH 15.5 % (11.5-14.5)
[2016-12-22 07:29] LABS: BLOOD UREA NITROGEN 21 mg/dl (9-20); GFR AFRICAN-AMERICAN > 60; GFR NON-AFRICAN AMERICAN 54
[2016-12-22] MEDS: Oxycodone/Acetaminophen 5/325 mg Tab PO PRN ×3 (09:08→19:47)
[2016-12-22] MEDS: Metoprolol Succinate 100 mg XL Tab PO SCH (09:09)
--- NOTE | 2016-12-22 11:00 | CP.PCM.PN ---
Subjective - Date & Time of Evaluation Date of Evaluation: 12/22/16 Time of Evaluation: 09:30 - Subjective Subjective: NO CHEST PAIN OR SOB Objective - Vital Signs/Intake and Output Vital Signs (last 24 hours): Temp Pulse Resp BP Pulse Ox 98.1 F 113 H 20 141/72 99 12/22/16 08:09 12/22/16 09:09 12/22/16 08:09 12/22/16 09:09 12/22/16 08:09 - Medications Medications: Current Medications Acetaminophen (Tylenol 325mg Tab) 650 mg PO Q6 PRN PRN Reason: Fever >100.4 F Allopurinol (Zyloprim) 100 mg PO DAILY [facility] Last Admin: 12/22/16 09:13 Dose: 100 mg Aspirin (Aspirin Chewable) 81 mg PO BID [facility] Last Admin: 12/22/16 09:13 Dose: 81 mg Docusate Sodium (Colace) 100 mg PO BID [facility] Last Admin: 12/22/16 09:13 Dose: 100 mg Ferrous Sulfate (Feosol) 325 mg PO TID [facility] Last Admin: 12/22/16 09:13 Dose: 325 mg Metoprolol Succinate (Toprol Xl) 100 mg PO DAILY [facility] Last Admin: 12/22/16 09:09 Dose: 100 mg Oxycodone/Acetaminophen (Percocet 5/325 Mg Tab) 1 tab PO Q4 PRN PRN Reason: Pain, severe (8-10) Stop: 12/24/16 08:15 Last Admin: 12/22/16 09:08 Dose: 1 tab Tamsulosin HCl (Flomax) 0.4 mg PO DAILY [facility] Last Admin: 12/22/16 09:13 Dose: 0.4 mg - Labs Labs: 12/22/16 07:06 12/22/16 07:06 - Respiratory Exam Respiratory Exam: Clear to Ausculation Bilateral - Cardiovascular Exam Cardiovascular Exam: REGULAR RHYTHM, +S1, +S2 Assessment and Plan - Assessment and Plan (Free Text) Assessment: S/P LEFT KNEE REVISION HYPERTENSION ANEMIA BPH Plan: CONTINUE ASPIRIN, METOPROLOL, FEOSOL AND FLOMAX
[2016-12-22] MEDS ORDERED: Povidone Iodine Topical 10% Sol ONE (15:18)
[2016-12-23] MEDS: Oxycodone/Acetaminophen 5/325 mg Tab PO PRN ×3 (08:23→21:35)
[2016-12-23] MEDS: Metoprolol Succinate 100 mg XL Tab PO SCH (08:24)
--- NOTE | 2016-12-23 10:28 | CP.PCM.PN ---
Subjective - Date & Time of Evaluation Date of Evaluation: 12/23/16 Time of Evaluation: 08:20 - Subjective Subjective: NO COMPLAINTS DOING WELL WITH REHAB Objective - Vital Signs/Intake and Output Vital Signs (last 24 hours): Temp Pulse Resp BP Pulse Ox 98.2 F 79 20 152/90 H 99 12/23/16 08:03 12/23/16 08:24 12/23/16 08:03 12/23/16 08:24 12/23/16 08:03 - Medications Medications: Current Medications Acetaminophen (Tylenol 325mg Tab) 650 mg PO Q6 PRN PRN Reason: Fever >100.4 F Allopurinol (Zyloprim) 100 mg PO DAILY [facility] Last Admin: 12/23/16 08:26 Dose: 100 mg Aspirin (Aspirin Chewable) 81 mg PO BID [facility] Last Admin: 12/23/16 08:25 Dose: 81 mg Docusate Sodium (Colace) 100 mg PO BID [facility] Last Admin: 12/23/16 08:24 Dose: 100 mg Ferrous Sulfate (Feosol) 325 mg PO TID [facility] Last Admin: 12/23/16 08:25 Dose: 325 mg Metoprolol Succinate (Toprol Xl) 100 mg PO DAILY [facility] Last Admin: 12/23/16 08:24 Dose: 100 mg Oxycodone/Acetaminophen (Percocet 5/325 Mg Tab) 1 tab PO Q4 PRN PRN Reason: Pain, severe (8-10) Stop: 12/24/16 08:15 Last Admin: 12/23/16 08:23 Dose: 1 tab Tamsulosin HCl (Flomax) 0.4 mg PO DAILY [facility] Last Admin: 12/23/16 08:25 Dose: 0.4 mg - Labs Labs: 12/22/16 07:06 12/22/16 07:06 - Respiratory Exam Respiratory Exam: Clear to Ausculation Bilateral - Cardiovascular Exam Cardiovascular Exam: REGULAR RHYTHM, +S1, +S2 - Extremities Exam Additional comments: NO EDEMA OF LE4 IVY'S SIGN NEGATIVE BILAT Assessment and Plan - Assessment and Plan (Free Text) Assessment: S/P LEFT KNEE SURGERY HYPERTENSION ANEMIA BPH Plan: CONTINUE ASPIRIN, METOPROLOL, FEOSOL AND FLOMAX CONTINUE PHYSICAL THERAPY
--- NOTE | 2016-12-23 13:22 | CP.PCM.PN ---
Subjective - Date & Time of Evaluation Date of Evaluation: 12/23/16 Time of Evaluation: 10:30 - Subjective Subjective: Pt seen and examined. Denied any pain or any other complaint. Objective - Vital Signs/Intake and Output Vital Signs (last 24 hours): Temp Pulse Resp BP Pulse Ox 98.2 F 79 20 152/90 H 98 12/23/16 08:03 12/23/16 10:21 12/23/16 08:03 12/23/16 10:21 12/23/16 10:21 - Medications Medications: Current Medications Acetaminophen (Tylenol 325mg Tab) 650 mg PO Q6 PRN PRN Reason: Fever >100.4 F Allopurinol (Zyloprim) 100 mg PO DAILY [facility] Last Admin: 12/23/16 08:26 Dose: 100 mg Aspirin (Aspirin Chewable) 81 mg PO BID [facility] Last Admin: 12/23/16 08:25 Dose: 81 mg Docusate Sodium (Colace) 100 mg PO BID [facility] Last Admin: 12/23/16 08:24 Dose: 100 mg Ferrous Sulfate (Feosol) 325 mg PO TID [facility] Last Admin: 12/23/16 12:45 Dose: 325 mg Metoprolol Succinate (Toprol Xl) 100 mg PO DAILY [facility] Last Admin: 12/23/16 08:24 Dose: 100 mg Oxycodone/Acetaminophen (Percocet 5/325 Mg Tab) 1 tab PO Q4 PRN PRN Reason: Pain, severe (8-10) Stop: 12/24/16 08:15 Last Admin: 12/23/16 12:50 Dose: 1 tab Tamsulosin HCl (Flomax) 0.4 mg PO DAILY [facility] Last Admin: 12/23/16 08:25 Dose: 0.4 mg - Labs Labs: 12/22/16 07:06 12/22/16 07:06 - Constitutional Appears: No Acute Distress - Head Exam Head Exam: ATRAUMATIC - Eye Exam Eye Exam: absent: Scleral icterus - ENT Exam ENT Exam: Mucous Membranes Moist - Neck Exam Neck Exam: absent: Meningismus - Respiratory Exam Respiratory Exam: absent: Rhonchi, Wheezes, Respiratory Distress - Cardiovascular Exam Cardiovascular Exam: REGULAR RHYTHM, +S1, +S2 - GI/Abdominal Exam GI & Abdominal Exam: Soft. absent: Tenderness - Rectal Exam Rectal Exam: Deferred - Extremities Exam Extremities Exam: absent: Full ROM (ROM on left knee improving) - Neurological Exam Neurological Exam: Alert, Oriented x3 - Psychiatric Exam Psychiatric exam: Normal Affect - Skin Skin Exam: Dry, Intact Assessment and Plan (1) Primary osteoarthritis of left knee Status: Chronic (2) Acute blood loss anemia Status: Acute (3) Thrombocytopenia Status: Acute (4) History of coronary artery disease Status: Chronic (5) HTN (hypertension) Status: Chronic (6) Hyperlipidemia Status: Chronic (7) CKD (chronic kidney disease), stage III Status: Chronic (8) BPH (benign prostatic hyperplasia) Status: Chronic - Assessment and Plan (Free Text) Assessment: 76 yo male with history of OA, LEONARDO, HTN, renal insufficiency and BPH underwent left TKR on 12/13/2016. Post op days were marked with anemia secondary to blood loss and thrombocytopenia. Patient received blood transfusion and Venofer. He was transferred to TCU on 12/17/2016 for PT/OT. 1. Osteoarthritis of Left Knee, s/p Revision TKR denied pain except during PT and CPM continue PT/OT 2. Acute Blood Loss Anemia Hgb: 9.2 (12/22/2016) continue Ferrous SO4 3. Thrombocytopenia Improved and now within normal range Platelet: 176 4. CAD history asymptomatic continue ASA and Metoprolol 5. Hypertension BP stable continue Metoprolol 6. Chronic Kidney Disease stage II stable Crea 1.3 continue to improve 7. BPH continue Flomax 8. DVT prophylaxis on ASA 81mg PO BID as per recommendation from orthopedist
[2016-12-24] MEDS: Oxycodone/Acetaminophen 5/325 mg Tab PO PRN (08:12)
[2016-12-24 08:18] VITALS: BP 166/86; PULSE 106
[2016-12-24] MEDS: Metoprolol Succinate 100 mg XL Tab PO SCH (08:18)
[2016-12-24 08:23] VITALS: TEMP 98.8; O2SAT 97
--- NOTE | 2016-12-24 10:12 | CP.PCM.PN ---
Subjective - Date & Time of Evaluation Date of Evaluation: 12/24/16 Time of Evaluation: 09:30 - Subjective Subjective: NO COMPLAINTS DOING WELL WITH REHAB Objective - Vital Signs/Intake and Output Vital Signs (last 24 hours): Temp Pulse Resp BP Pulse Ox 98.8 F 106 H 20 166/86 H 97 12/24/16 08:23 12/24/16 08:23 12/24/16 08:23 12/24/16 08:23 12/24/16 08:23 - Medications Medications: Current Medications Acetaminophen (Tylenol 325mg Tab) 650 mg PO Q6 PRN PRN Reason: Fever >100.4 F Allopurinol (Zyloprim) 100 mg PO DAILY [facility] Last Admin: 12/24/16 08:18 Dose: 100 mg Aspirin (Aspirin Chewable) 81 mg PO BID [facility] Last Admin: 12/24/16 08:16 Dose: 81 mg Docusate Sodium (Colace) 100 mg PO BID [facility] Last Admin: 12/24/16 08:16 Dose: 100 mg Ferrous Sulfate (Feosol) 325 mg PO TID [facility] Last Admin: 12/24/16 08:17 Dose: 325 mg Metoprolol Succinate (Toprol Xl) 100 mg PO DAILY [facility] Last Admin: 12/24/16 08:18 Dose: 100 mg Tamsulosin HCl (Flomax) 0.4 mg PO DAILY [facility] Last Admin: 12/24/16 08:17 Dose: 0.4 mg - Labs Labs: 12/22/16 07:06 12/22/16 07:06 - Respiratory Exam Respiratory Exam: Clear to Ausculation Bilateral - Cardiovascular Exam Cardiovascular Exam: REGULAR RHYTHM, +S1, +S2 - Extremities Exam Additional comments: NO LE EDEMA Assessment and Plan - Assessment and Plan (Free Text) Assessment: LEFT KNEE SURGERY HYPERTENSION Plan: FOR DISCHARGE TODAY CONTINUE ASPIRIN AND METOPROLOL
--- NOTE | 2016-12-24 11:16 | CP.PCM.DIS ---
Provider - Provider Date of Admission: 12/18/16 00:42 Attending physician: Gertrudis Barillas MD Primary care physician: Jose Elias Chan III, MD Consults: Dr Dustin Herrera Time Spent in preparation of Discharge (in minutes): 35 Diagnosis - Discharge Diagnosis (1) Primary osteoarthritis of left knee Status: Chronic Comment: continue pain management. continue PT as outpatient (2) Acute blood loss anemia Status: Acute Comment: Hgb up to 9.2. continue Ferrous SO4 325mg PO TID (3) Thrombocytopenia Status: Acute Comment: resolved (4) History of coronary artery disease Status: Chronic Comment: asymptomatic. continue ASA and Metoprolol (5) HTN (hypertension) Status: Chronic Comment: BP stable. continue Metoprolol (6) Hyperlipidemia Status: Chronic Comment: stable without statin. heart healthy diet (7) CKD (chronic kidney disease), stage III Status: Chronic Comment: stable. improving to stage II (8) BPH (benign prostatic hyperplasia) Status: Chronic Comment: continue [facility] Hospital Course - Lab Results Lab Results: Most Recent Lab Values WBC 11.0 K/uL (4.8-10.8) H D 12/22/16 07:06 RBC 3.29 Mil/uL (4.40-5.90) L 12/22/16 07:06 Hgb 9.2 g/dL (12.0-18.0) L 12/22/16 07:06 Hct 29.1 % (35.0-51.0) L 12/22/16 07:06 MCV 88.7 fl (80.0-94.0) 12/22/16 07:06 MCH 27.9 pg (27.0-31.0) 12/22/16 07:06 MCHC 31.5 g/dL (33.0-37.0) L 12/22/16 07:06 RDW 15.5 % (11.5-14.5) H 12/22/16 07:06 Plt Count 176 K/uL (130-400) 12/22/16 07:06 MPV 8.2 fl (7.2-11.7) 12/18/16 06:00 Neut % (Auto) 65.4 % (50.0-75.0) 12/18/16 06:00 Lymph % (Auto) 13.0 % (20.0-40.0) L 12/18/16 06:00 Ballard % (Auto) 13.6 % (0.0-10.0) H 12/18/16 06:00 Eos % (Auto) 7.4 % (0.0-4.0) H 12/18/16 06:00 Baso % (Auto) 0.6 % (0.0-2.0) 12/18/16 06:00 Neut # 3.9 K/uL (1.8-7.0) 12/18/16 06:00 Lymph # 0.8 K/uL (1.0-4.3) L 12/18/16 06:00 Ballard # 0.8 K/uL (0.0-0.8) 12/18/16 06:00 Eos # 0.4 K/uL (0.0-0.7) 12/18/16 06:00 Baso # 0.0 K/uL (0.0-0.2) 12/18/16 06:00 Sodium 139 mmol/l (132-148) 12/22/16 07:06 Potassium 4.2 MMOL/L (3.6-5.0) 12/22/16 07:06 Chloride 108 mmol/L (98-107) H 12/22/16 07:06 Carbon Dioxide 25 mmol/L (22-30) 12/22/16 07:06 Anion Gap 10 (10-20) 12/22/16 07:06 BUN 21 mg/dl (9-20) H 12/22/16 07:06 Creatinine 1.3 mg/dL (0.8-1.5) 12/22/16 07:06 Est GFR ( Amer) > 60 12/22/16 07:06 Est GFR (Non-Af Amer) 54 12/22/16 07:06 Random Glucose 91 mg/dL (75-110) 12/22/16 07:06 Calcium 9.0 mg/dL (8.4-10.2) 12/22/16 07:06 Triglycerides 129 mg/DL (0-149) 12/19/16 05:30 Cholesterol 138 mg/dL (0-199) 12/19/16 05:30 LDL Cholesterol Direct 69 mg/dL (0-129) 12/19/16 05:30 HDL Cholesterol 33 MG/DL (30-70) 12/19/16 05:30 - Hospital Course Hospital Course: 76 yo male with history of OA, LEONARDO, HTN, HLD, Renal Insufficiency and BPH had left TKR on 12/13/2016. Post op days were marked with blood loss anemia and thrombocytopenia. He was transfused with 5 units of PRBC and later transferred to TCU for PT/OT. Patient did well and now ready for discharge. Discharge Exam - Head Exam Head Exam: ATRAUMATIC - Eye Exam Eye Exam: absent: Scleral icterus - ENT Exam ENT Exam: Mucous Membranes Moist - Respiratory Exam Respiratory Exam: NORMAL BREATHING PATTERN. absent: Wheezes, Respiratory Distress - Cardiovascular Exam Cardiovascular Exam: REGULAR RHYTHM, +S1, +S2 - GI/Abdominal Exam GI & Abdominal Exam: Soft. absent: Tenderness - Rectal Exam Rectal Exam: Deferred - Extremities Exam Extremities exam: joint swelling (right knee still slightly swollen) - Neurological Exam Neurological exam: Alert, Oriented x3 - Psychiatric Exam Psychiatric exam: Normal Affect - Skin Skin Exam: Dry, Intact Discharge Plan - Discharge Medications Prescriptions: oxyCODONE/Acetaminophen [Percocet 5/325 mg Tab] 1 tab PO Q4 PRN #20 tab PRN Reason: Pain, Moderate (4-7) - Follow Up Plan Condition: GOOD Disposition: HOME/ ROUTINE Referrals: Jose Elias Chan III, MD [Primary Care Provider] -
== END 2016-12-24 12:32 | disposition home or self-care (01) | DRG 560 ==
LOC: H.TCU 12-18 00:42
PROVIDERS: ADMIT Internal Medicine; ATTEND Internal Medicine
PROC: F07L0FZ Range of Motion and Joint Mobility Treatment of Musculoskeletal System - Lower Back / Lower Extremity using Assistive, Adaptive, Supportive or Protective Equipment (ICD-10-PCS; principal; 2016-12-18)
PROC: F08Z4ZZ Home Management Treatment (ICD-10-PCS; 2016-12-18)
PROC: F07Z9FZ Gait Training/Functional Ambulation Treatment using Assistive, Adaptive, Supportive or Protective Equipment (ICD-10-PCS; 2016-12-18)
PROC: F07L6FZ Therapeutic Exercise Treatment of Musculoskeletal System - Lower Back / Lower Extremity using Assistive, Adaptive, Supportive or Protective Equipment (ICD-10-PCS; 2016-12-18)
DX: Z47.1 Aftercare following joint replacement surgery (principal); D62 Acute posthemorrhagic anemia; D69.6 Thrombocytopenia, unspecified; N18.3 Chronic kidney disease, stage 3 (moderate); Z96.652 Presence of left artificial knee joint; G47.33 Obstructive sleep apnea (adult) (pediatric); I12.9 Hypertensive chronic kidney disease with stage 1 through stage 4 chronic kidney disease, or unspecified chronic kidney disease; N40.0 Benign prostatic hyperplasia without lower urinary tract symptoms; I25.10 Atherosclerotic heart disease of native coronary artery without angina pectoris; E78.5 Hyperlipidemia, unspecified; E86.0 Dehydration

== ENCOUNTER 2016-12-29 15:12 | Inpatient (IN) | payer MEDICARE ==
[2016-12-29] MEDS ORDERED: Sodium Chloride 0.9% 1,000 ML IV SCH (22:45)
--- NOTE | 2016-12-29 22:46 | CP.PCM.HP ---
History of Present Illness - History of Present Illness History of Present Illness: CC: L knee hematoma after ?trauma following surgery in 11/2016 HPI: 76 year old male with HTN, HLD, and CKD among other chronic conditions who had L TKR at end of 11/2016. He had gone home from TCU/rehab this past Tuesday. On Tuesday he was in a wheelchair going somewhere in [facility]. He hit a bump, and his LLE folded under, the wound opened up and started bleeding. He went to [facility], where he apparently had a washout of the blood from the knee, and a JONNA drain placed. He is transferred here for further mgmt. Patient states pain is under control. Patient was previously cleared for surgery (see prior H&P). Judged as low risk for moderate risk surgery. Patient with no current symptoms including f/c/n/v/ d. No CP, SOB, or BELTRE. ROS: per HPI, 12 systems reviewed and negative MHx: Osteoarthritis b/l knee, HTN, HLD, CKD, BPH SHx: total 3 knee surgeries for osteoarthritis, cardiac cath, but no stents Allergies: NKDA Medications: Pending Family Hx: HTN Social Hx: Lives with family, no tobacco, no EtOH Surrogate Dec Mkr: info on file Present on Admission - Present on Admission Any Indicators Present on Admission: No Past Patient History - Tetanus Immunizations Tetanus Immunization: Unknown - Past Medical History & Family History Past Medical History?: Yes - Past Social History Smoking Status: Former Smoker - CARDIAC Hx Cardiac Disorders: Yes Hx Hypercholesterolemia: Yes Hx Hypertension: Yes - PULMONARY Hx Respiratory Disorders: No Hx Sleep Apnea: Yes - NEUROLOGICAL Hx Neurological Disorder: No - HEENT Hx HEENT Problems: Yes Other/Comment: wears glasses - RENAL Hx Chronic Kidney Disease: Yes Other/Comment: renal insufficiency - ENDOCRINE/METABOLIC Hx Endocrine Disorders: No - HEMATOLOGICAL/ONCOLOGICAL Hx Blood Disorders: No Hx Anemia: Yes Hx Blood Transfusions: Yes Hx Blood Transfusion Reaction: No - INTEGUMENTARY Hx Dermatological Problems: No - MUSCULOSKELETAL/RHEUMATOLOGICAL Hx Arthritis: Yes - GASTROINTESTINAL Hx Gastrointestinal Disorders: No - GENITOURINARY/GYNECOLOGICAL Hx Genitourinary Disorders: Yes Hx Prostate Problems: Yes - PSYCHIATRIC Hx Substance Use: No - SURGICAL HISTORY Hx Surgeries: Yes Hx Joint Replacement: Yes (TOTAL LEFT KNEE REPLACEMENT X2) Other/Comment: LASER PROSTATE SX. 12/13/16 s/p ltkr revision - ANESTHESIA Hx Anesthesia: Yes Hx Anesthesia Reactions: No Hx Malignant Hyperthermia: No Meds Allergies/Adverse Reactions: Allergies Allergy/AdvReac Type Severity Reaction Status Date / Time No Known Allergies Allergy Verified 12/18/16 00:41 Physical Exam - Constitutional Appears: No Acute Distress - Head Exam Head Exam: ATRAUMATIC, NORMOCEPHALIC - Eye Exam Eye Exam: EOMI, PERRL - ENT Exam ENT Exam: Mucous Membranes Moist - Neck Exam Neck exam: Positive for: Full Rom - Respiratory Exam Respiratory Exam: Clear to Auscultation Bilateral, NORMAL BREATHING PATTERN - Cardiovascular Exam Cardiovascular Exam: REGULAR RHYTHM, +S1, +S2 - GI/Abdominal Exam GI & Abdominal Exam: Normal Bowel Sounds, Soft - Extremities Exam Additional comments: LLE with dressing and JONNA drain in place draining bloody drainage - Neurological Exam Neurological exam: Alert, CN II-XII Intact, Oriented x3 - Psychiatric Exam Psychiatric exam: Normal Affect, Normal Mood - Skin Skin Exam: Dry, Warm Assessment & Plan (1) Hemarthrosis involving knee joint Assessment and Plan: 76 y/o male with multiple medical conditions who comes in with hematoma of L knee following TKR. 1) s/p L TKR with hematoma -NPO after MN except medications for possible surgery, IVF -Pain mgmt as per scale -Consult Dustin (ortho) -Consult Hayden (plastics) -Consult Sharon (cardiology) 2) CKD -- will obtain BMP; dose all medications renally 3) BPH -- cont home medications 4) HTN/HLD -- stable; continue home medications 5) DVT PPx -- SCDs only for now, pending surgery Status: Acute (2) CKD (chronic kidney disease), stage III Status: Chronic (3) BPH (benign prostatic hyperplasia) Status: Chronic (4) HTN (hypertension) Status: Chronic (5) Hyperlipidemia Status: Chronic (6) DVT prophylaxis Status: Acute
[2016-12-29] MEDS: Oxycodone/Acetaminophen 5/325 mg Tab PO PRN (23:59)
[2016-12-30 06:24] LABS: HEMOGLOBIN 8.8 g/dL (12.0-18.0); MEAN CELL VOLUME 86.3 fl (80.0-94.0); MEAN CORPUSCULAR HEMOGLOBIN 28.2 pg (27.0-31.0); MEAN CORPUSCULAR HGB CONC 32.6 g/dL (33.0-37.0); RBC 3.12 Mil/uL (4.40-5.90); RED CELL DISTRIBUTION WIDTH 16.4 % (11.5-14.5); WHITE BLOOD COUNT 6.5 K/uL (4.8-10.8)
[2016-12-30 06:33] LABS: CALCIUM 8.5 mg/dL (8.4-10.2)
[2016-12-30 06:42] LABS: PARTIAL THROMBOPLASTIN TIME 26.9 Seconds (25.6-37.1); PROTHROMBIN TIME 11.7 Seconds (9.8-13.1)
[2016-12-30 09:08] LABS: GRANULAR CAST 2 /lpf (0-1); SPERM URINE RARE /hpf; SQUAMOUS EPITHIAL 1 /hpf (0-5); URINE BACTERIA OCC (<OCC); URINE BILIRUBIN NEGATIVE (NEGATIVE); URINE BLOOD MODERATE (NEGATIVE); URINE CLARITY SLIGHTY-CLOUDY (Clear); URINE COLOR YELLOW (YELLOW); URINE GLUCOSE (UA) NEG (Normal); URINE LEUKOCYTE ESTERASE MOD Leu/uL (Negative); URINE NITRATE NEGATIVE (NEGATIVE); URINE PROTEIN 30 mg/dL (NEGATIVE); URINE UROBILINOGEN 0.2-1.0 mg/dL (0.2-1.0)
--- NOTE | 2016-12-30 09:28 | CP.PCM.CON ---
History of Present Illness - History of Present Illness History of Present Illness: THE PATIENT IS A 76 YEAR OLD MALE KNOWN TO ME FROM HIS RECENT [facility] AND U ADMISSIONS FOR A LEFT TKR REVISION BY DR NATION. HE WAS DOING WELL AND WAS DISCHARGED TO HOME FROM TCU ON 12/24/16. ON TUESDAY HE WAS OUT AND BEING PUSHED IN A WHEELCHAIR BY HIS GRANDDAUGHTER AND THE WHEELCHAIR HIT A BUMP AND HE WAS THROWN UP AND WHEN HE LANDED BACK IN THE WHEELCHAIR HIS LEFT KNEE FOLDED UNDER THE WHEELCHAIR. ON HIS WAY HOME HE WAS LOSING MUCH BLOOD AND HIS PANTS WERE ALL SOAKED IN BLOOD. HE MADE IT HOME BUT WAS LIGHTHEADED AND WAS AFRAID HE MIGHT PASS OUT SO HE WENT TO [facility] IN [place] WHERE HE APPARENTLY HAS A LEFT KNEE WASHOUT AND A DRAIN WAS INSERTED. HE WAS TRANSFERRED TO [facility] YESTERDAY TO BE UNDER THE CARE OF DR NATION. CARDIOLOGY WAS ASKED TO FOLLOW HIM. HE ALSO HAS A HISTORY OF HYPERTENSION AND HYPERLIPIDEMIA. HE HAD A STRESS TEST RECENTLY FOLLOWED BY A CARDIAC CATH THAT SHOWED MILD CAD AND HE HAD AN ECHOCARDIOGRAM THAT SHOWED LVH WITH GOOD SYSTOLIC FUNCTION. HE DENIES CHEST PAIN OR SOB. Past Patient History - Tetanus Immunizations Tetanus Immunization: Unknown - Past Medical History & Family History Past Medical History?: Yes - Past Social History Smoking Status: Former Smoker - CARDIAC Hx Cardiac Disorders: Yes Hx Hypercholesterolemia: Yes Hx Hypertension: Yes - PULMONARY Hx Respiratory Disorders: No Hx Sleep Apnea: Yes - NEUROLOGICAL Hx Neurological Disorder: No - HEENT Hx HEENT Problems: Yes Other/Comment: wears glasses - RENAL Hx Chronic Kidney Disease: Yes Other/Comment: renal insufficiency - ENDOCRINE/METABOLIC Hx Endocrine Disorders: No - HEMATOLOGICAL/ONCOLOGICAL Hx Blood Disorders: No Hx AIDS: No Hx Anemia: Yes Hx Blood Transfusions: Yes Hx Blood Transfusion Reaction: No Hx Human Immunodeficiency Virus (HIV): No - INTEGUMENTARY Hx Dermatological Problems: No - MUSCULOSKELETAL/RHEUMATOLOGICAL Hx Musculoskeletal Disorders: Yes Hx Arthritis: Yes Hx Falls: No - GASTROINTESTINAL Hx Gastrointestinal Disorders: No - GENITOURINARY/GYNECOLOGICAL Hx Genitourinary Disorders: Yes Hx Prostate Problems: Yes - PSYCHIATRIC Hx Substance Use: No - SURGICAL HISTORY Hx Surgeries: Yes Hx Joint Replacement: Yes (TOTAL LEFT KNEE REPLACEMENT X2) Other/Comment: LASER PROSTATE SX. 12/13/16 s/p ltkr revision - ANESTHESIA Hx Anesthesia: Yes Hx Anesthesia Reactions: No Hx Malignant Hyperthermia: No Meds Allergies/Adverse Reactions: Allergies Allergy/AdvReac Type Severity Reaction Status Date / Time No Known Allergies Allergy Verified 12/18/16 00:41 - Medications Medications: Current Medications Acetaminophen (Tylenol 325mg Tab) 650 mg PO Q6 PRN PRN Reason: Pain, Mild (1-3) Acetaminophen (Tylenol 325mg Tab) 650 mg PO Q6 PRN PRN Reason: Fever >100.4 F Allopurinol (Zyloprim) 100 mg PO DAILY [facility] Atorvastatin Calcium (Lipitor) 10 mg PO HS [facility] Docusate Sodium (Colace) 100 mg PO BID [facility] Ferrous Sulfate (Feosol) 325 mg PO TID [facility] HCTZ/Losartan Potassium (Hyzaar 12.5 Mg-50 Mg) 2 tab PO DAILY [facility] Metoprolol Succinate (Toprol Xl) 100 mg PO DAILY [facility] Oxycodone/Acetaminophen (Percocet 5/325 Mg Tab) 1 tab PO Q4 PRN PRN Reason: Pain, moderate (4-7) Stop: 01/01/17 22:37 Last Admin: 12/29/16 23:59 Dose: 1 tab Sennosides (Senokot Tab) 8.6 mg PO BID [facility] Tamsulosin HCl (Flomax) 0.4 mg PO DAILY [facility] Physical Exam - Respiratory Exam Respiratory Exam: Clear to Auscultation Bilateral - Cardiovascular Exam Cardiovascular Exam: REGULAR RHYTHM, +S1, +S2 - Extremities Exam Additional comments: LLE WITH DRESSINGS AND A DRAIN Results - Vital Signs Recent Vital Signs: Last Vital Signs Temp 98.6 F 12/30/16 08:03 Pulse 78 12/30/16 08:03 Resp 20 12/30/16 08:03 BP 151/74 H 12/30/16 08:03 Pulse Ox 97 12/30/16 08:03 - Labs Result Diagrams: 12/30/16 05:20 12/30/16 05:20 Labs: Laboratory Results - last 24 hr 12/30/16 12/30/16 12/30/16 05:20 05:20 05:20 WBC 6.5 RBC 3.12 L Hgb 8.8 L Hct 26.9 L MCV 86.3 D MCH 28.2 MCHC 32.6 L RDW 16.4 H Plt Count 132 PT 11.7 INR 1.0 APTT 26.9 Sodium 140 Potassium 4.1 Chloride 109 H Carbon Dioxide 26 Anion Gap 9 L BUN 18 Creatinine 1.4 Est GFR ( Amer) 59 Est GFR (Non-Af Amer) 49 POC Glucose (mg/dL) Random Glucose 91 Calcium 8.5 Urine Color Urine Clarity Urine pH Ur Specific [place] Urine Protein Urine Glucose (UA) Urine Ketones Urine Blood Urine Nitrate Urine Bilirubin Urine Urobilinogen Ur Leukocyte Esterase Urine RBC (Auto) Urine Microscopic WBC Ur Squamous Epith Cells Urine Bacteria Granular Casts (Auto) Urine Sperm (Auto) Blood Type Antibody Screen BBK History Checked 12/30/16 12/30/16 12/30/16 05:20 05:31 08:36 WBC RBC Hgb Hct MCV MCH MCHC RDW Plt Count PT INR APTT Sodium Potassium Chloride Carbon Dioxide Anion Gap BUN Creatinine Est GFR ( Amer) Est GFR (Non-Af Amer) POC Glucose (mg/dL) 115 H Random Glucose Calcium Urine Color Yellow Urine Clarity Slighty-cloudy Urine pH 5.0 Ur Specific [place] 1.019 Urine Protein 30 Urine Glucose (UA) Neg Urine Ketones Negative Urine Blood Moderate Urine Nitrate Negative Urine Bilirubin Negative Urine Urobilinogen 0.2-1.0 Ur Leukocyte Esterase Mod Urine RBC (Auto) 65 H Urine Microscopic WBC 72 H Ur Squamous Epith Cells 1 Urine Bacteria Occ H Granular Casts (Auto) 2 Urine Sperm (Auto) Rare H Blood Type O POSITIVE Antibody Screen Negative BBK History Checked Patient has bt Assessment & Plan - Assessment and Plan (Free Text) Assessment: RECENT LEFT KNEE REVISION FOLLOWED BY TRAUMA AND BLEEDING AND KNEE WASHOUT AND DRAIN INSERTION MILD CAD-STABLE HYPERTENSION HYPERLIPIDEMIA Plan: CONTINUE HYZAAR, METOPROLOL, ATORVASTATIN AND IRON ASPIRIN AND LOVENOX NOT GIVEN DUE TO RECENT TRAUMA AND BLEED CT SCAN AND X-RAYS TODAY DR NATION TO EVALUATE
[2016-12-30] MEDS: Oxycodone/Acetaminophen 5/325 mg Tab PO PRN ×2 (09:41→15:28)
[2016-12-30] MEDS: Metoprolol Succinate 100 mg XL Tab PO SCH (09:42)
[2016-12-30] MEDS: HCTZ/Losartan 12.5/50 Tab PO SCH (11:30)
--- NOTE | 2016-12-30 12:41 | CT ---
PROCEDURE: Left knee HISTORY: Preop pre-op COMPARISON: Perioperative study 12/13/2016 left knee 12/30/2016 two-view knee TECHNIQUE: 2.5 mm axial acquisition and display. Coronal and sagittal reconstructions. Dose report (mGy-cm): 595.44 FINDINGS: No evidence of orthopedic hardware failure. Expected postoperative changes incompletely visualize because of artifact from the left TKA. This includes multiple foci of air within the soft tissues. Associated with postoperative fluid/ seroma in the suprapatellar region. No abnormalities visualized aspects of the fibula. Expected diffuse edematous changes at the operative site and extending into the calf region. Surgical drain identified in satisfactory position. IMPRESSION: Postoperative findings as described without evidence of hardware failure.
--- NOTE | 2016-12-30 13:55 | CP.PCM.PN ---
Subjective - Date & Time of Evaluation Date of Evaluation: 12/30/16 Time of Evaluation: 13:00 - Subjective Subjective: No fever pain controlled Hemovac- left knee with small amount of blood denies CP no SOB no abd pain no dysuria Objective - Vital Signs/Intake and Output Vital Signs (last 24 hours): Temp Pulse Resp BP Pulse Ox 98.6 F 78 20 151/74 H 97 12/30/16 08:03 12/30/16 09:42 12/30/16 08:03 12/30/16 09:42 12/30/16 08:03 Intake and Output: 12/30/16 12/30/16 06:59 18:59 Intake Total 1200 Output Total 515 Balance 685 - Medications Medications: Current Medications Acetaminophen (Tylenol 325mg Tab) 650 mg PO Q6 PRN PRN Reason: Pain, Mild (1-3) Acetaminophen (Tylenol 325mg Tab) 650 mg PO Q6 PRN PRN Reason: Fever >100.4 F Allopurinol (Zyloprim) 100 mg PO DAILY [facility] Last Admin: 12/30/16 09:43 Dose: 100 mg Atorvastatin Calcium (Lipitor) 10 mg PO [facility] Docusate Sodium (Colace) 100 mg PO BID [facility] Last Admin: 12/30/16 09:43 Dose: 100 mg Ferrous Sulfate (Feosol) 325 mg PO TID [facility] Last Admin: 12/30/16 09:45 Dose: 325 mg HCTZ/Losartan Potassium (Hyzaar 12.5 Mg-50 Mg) 2 tab PO DAILY [facility] Metoprolol Succinate (Toprol Xl) 100 mg PO DAILY [facility] Last Admin: 12/30/16 09:42 Dose: 100 mg Oxycodone/Acetaminophen (Percocet 5/325 Mg Tab) 1 tab PO Q4 PRN PRN Reason: Pain, moderate (4-7) Stop: 01/01/17 22:37 Last Admin: 12/30/16 09:41 Dose: 1 tab Sennosides (Senokot Tab) 8.6 mg PO BID [facility] Last Admin: 12/30/16 09:43 Dose: 8.6 mg Tamsulosin HCl (Flomax) 0.4 mg PO DAILY [facility] Last Admin: 12/30/16 09:43 Dose: 0.4 mg - Labs Labs: 12/30/16 05:20 12/30/16 05:20 PT 11.7 Seconds (9.8-13.1) 12/30/16 05:20 INR 1.0 (0.9-1.2) 12/30/16 05:20 APTT 26.9 Seconds (25.6-37.1) 12/30/16 05:20 - Constitutional Appears: No Acute Distress - Head Exam Head Exam: NORMAL INSPECTION, NORMOCEPHALIC - Eye Exam Eye Exam: EOMI, Normal appearance - ENT Exam ENT Exam: Mucous Membranes Moist, Normal External Ear Exam - Neck Exam Neck Exam: Full ROM. absent: Meningismus - Respiratory Exam Respiratory Exam: NORMAL BREATHING PATTERN. absent: Respiratory Distress - Cardiovascular Exam Cardiovascular Exam: REGULAR RHYTHM, +S1, +S2 - GI/Abdominal Exam GI & Abdominal Exam: Soft, Normal Bowel Sounds. absent: Tenderness - Extremities Exam Extremities Exam: Normal Capillary Refill. absent: Calf Tenderness Additional comments: left knee with dressing and Hemovac - Back Exam Back Exam: absent: CVA tenderness (L), CVA tenderness (R) - Neurological Exam Neurological Exam: Alert, Awake, CN II-XII Intact, Oriented x3 - Psychiatric Exam Psychiatric exam: Normal Affect, Normal Mood - Skin Skin Exam: Dry, Normal Color, Warm Assessment and Plan - Assessment and Plan (Free Text) Assessment: 76 year old male with HTN, HLD, and CKD among other chronic conditions who had a Revision of L TKR at end of 12/13/2016. He had gone home from TCU/rehab December 24. Last Tuesday he was in a wheelchair going somewhere [place]. He hit a bump, and his LLE folded under, the wound opened up and started bleeding. He went to [facility], where he apparently had a washout of the blood from the knee, and a JONNA drain placed. He is transferred here for further mgmt. Patient states pain is under control. (1) Trauma and Hematoma involving Left knee joint ( Recent Revision TKR) - accdg to pt had heavy bleeding after the trauma- had to be transfused at [facility] -Pain mgmt -Consult Dustin (ortho) -Consult Hayden (plastics) -Consult Sharon (cardiology) for pre op eval - CT of left knee (2) CKD (chronic kidney disease), stage III Status: Chronic Crea now normal (3) BPH (benign prostatic hyperplasia) Status: Chronic cont Flomax (4) HTN (hypertension) Status: Chronic (5) Hyperlipidemia Status: Chronic cont statin ( 6) r/o UTI UA showed leukoest and some WBC Urine c/s - will start IV Ceftriaxone (6) DVT prophylaxis Status: Acute SCD for now as pt may go for surgery
--- NOTE | 2016-12-30 15:52 | RAD ---
PROCEDURE: Left Knee Radiographs. HISTORY: Pain. No history of recent/ related trauma provided COMPARISON: 12/18/2016 FINDINGS: BONES: Stable position, orientation of femoral and tibial components of left TKA. JOINTS: Normal. No osteoarthritis. JOINT EFFUSION: None. OTHER FINDINGS: None. IMPRESSION: No significant interval change compared to the prior examination(s).
--- NOTE | 2016-12-30 19:40 | CP.PCM.CON ---
History of Present Illness - History of Present Illness History of Present Illness: I D CONSULT NOTE 76 YO MALE WHO HAS HAD 3 TKR FIRST APPARENTLY LASTED 10 YEARS SECOND :2 TO 3 YEARS AND PATIENT STATES IT WAS UNCOMFORTABLE AND HE ALWAYS HAD PAIN THIRD WAS DONE LATE NOVEMBER (12/17/16) AND THERE WAS NO DIFFICULTIES UNTIL HIS FIRST DAY HOME WHEN HE SUSTAINED TRAUMA WHILE IN WHEELCHAIR AND WAS BROUGHT TO [facility] IN [place] WHERE IT WAS EXPLORED AND HAD HEMEOVAC PLACED TRANSFERED TO [facility] FOR FURTHER CARE BY CHAPIS CRESPO. PE ALERT,COOPERATIVE ,AND ORIENTED HEENT:wnl NECK:supple LUNGS:Clear HEART:rsr ABDOMEN:pos bowel sounds EXT:LLE c surgical dressing LABS:REVIEWED LATER IN NOTE IMPRESSION TRAUMA LTKR c BLOOD LOSS R/O INFECTION HOLD ANTIBIOTICS FOR PRESENT TIME SO CULTURES CAN BE TAKEN S ANTIBIOTIC SUPPRESSION TOMORROW Past Patient History - Tetanus Immunizations Tetanus Immunization: Unknown - Past Medical History & Family History Past Medical History?: Yes - Past Social History Smoking Status: Former Smoker - CARDIAC Hx Cardiac Disorders: Yes Hx Hypercholesterolemia: Yes Hx Hypertension: Yes - PULMONARY Hx Respiratory Disorders: No Hx Sleep Apnea: Yes - NEUROLOGICAL Hx Neurological Disorder: No - HEENT Hx HEENT Problems: Yes Other/Comment: wears glasses - RENAL Hx Chronic Kidney Disease: Yes Other/Comment: renal insufficiency - ENDOCRINE/METABOLIC Hx Endocrine Disorders: No - HEMATOLOGICAL/ONCOLOGICAL Hx Blood Disorders: No Hx AIDS: No Hx Anemia: Yes Hx Blood Transfusions: Yes Hx Blood Transfusion Reaction: No Hx Human Immunodeficiency Virus (HIV): No - INTEGUMENTARY Hx Dermatological Problems: No - MUSCULOSKELETAL/RHEUMATOLOGICAL Hx Musculoskeletal Disorders: Yes Hx Arthritis: Yes Hx Falls: No - GASTROINTESTINAL Hx Gastrointestinal Disorders: No - GENITOURINARY/GYNECOLOGICAL Hx Genitourinary Disorders: Yes Hx Prostate Problems: Yes - PSYCHIATRIC Hx Substance Use: No - SURGICAL HISTORY Hx Surgeries: Yes Hx Joint Replacement: Yes (TOTAL LEFT KNEE REPLACEMENT X2) Other/Comment: LASER PROSTATE SX. 12/13/16 s/p ltkr revision - ANESTHESIA Hx Anesthesia: Yes Hx Anesthesia Reactions: No Hx Malignant Hyperthermia: No Meds Allergies/Adverse Reactions: Allergies Allergy/AdvReac Type Severity Reaction Status Date / Time No Known Allergies Allergy Verified 12/18/16 00:41 - Medications Medications: Current Medications Acetaminophen (Tylenol 325mg Tab) 650 mg PO Q6 PRN PRN Reason: Pain, Mild (1-3) Acetaminophen (Tylenol 325mg Tab) 650 mg PO Q6 PRN PRN Reason: Fever >100.4 F Allopurinol (Zyloprim) 100 mg PO DAILY [facility] Last Admin: 12/30/16 09:43 Dose: 100 mg Atorvastatin Calcium (Lipitor) 10 mg PO HS [facility] Docusate Sodium (Colace) 100 mg PO BID [facility] Last Admin: 12/30/16 17:29 Dose: 100 mg Ferrous Sulfate (Feosol) 325 mg PO TID [facility] Last Admin: 12/30/16 17:28 Dose: 325 mg HCTZ/Losartan Potassium (Hyzaar 12.5 Mg-50 Mg) 2 tab PO DAILY [facility] Last Admin: 12/30/16 11:30 Dose: 2 tab Metoprolol Succinate (Toprol Xl) 100 mg PO DAILY [facility] Last Admin: 12/30/16 09:42 Dose: 100 mg Oxycodone/Acetaminophen (Percocet 5/325 Mg Tab) 1 tab PO Q4 PRN PRN Reason: Pain, moderate (4-7) Stop: 01/01/17 22:37 Last Admin: 12/30/16 15:28 Dose: 1 tab Sennosides (Senokot Tab) 8.6 mg PO BID [facility] Last Admin: 12/30/16 17:29 Dose: 8.6 mg Tamsulosin HCl (Flomax) 0.4 mg PO DAILY [facility] Last Admin: 12/30/16 09:43 Dose: 0.4 mg Results - Vital Signs Recent Vital Signs: Last Vital Signs Temp 98.3 F 12/30/16 15:52 Pulse 75 12/30/16 15:52 Resp 19 12/30/16 15:52 BP 132/77 12/30/16 15:52 Pulse Ox 97 12/30/16 15:52 - Labs Result Diagrams: 12/30/16 05:20 12/30/16 05:20 Labs: Laboratory Results - last 24 hr 12/30/16 12/30/16 12/30/16 05:20 05:20 05:20 WBC 6.5 RBC 3.12 L Hgb 8.8 L Hct 26.9 L MCV 86.3 D MCH 28.2 MCHC 32.6 L RDW 16.4 H Plt Count 132 PT 11.7 INR 1.0 APTT 26.9 Sodium 140 Potassium 4.1 Chloride 109 H Carbon Dioxide 26 Anion Gap 9 L BUN 18 Creatinine 1.4 Est GFR ( Amer) 59 Est GFR (Non-Af Amer) 49 POC Glucose (mg/dL) Random Glucose 91 Calcium 8.5 Procalcitonin Urine Color Urine Clarity Urine pH Ur Specific [place] Urine Protein Urine Glucose (UA) Urine Ketones Urine Blood Urine Nitrate Urine Bilirubin Urine Urobilinogen Ur Leukocyte Esterase Urine RBC (Auto) Urine Microscopic WBC Ur Squamous Epith Cells Urine Bacteria Granular Casts (Auto) Urine Sperm (Auto) Blood Type Antibody Screen BBK History Checked 12/30/16 12/30/16 12/30/16 05:20 05:31 08:36 WBC RBC Hgb Hct MCV MCH MCHC RDW Plt Count PT INR APTT Sodium Potassium Chloride Carbon Dioxide Anion Gap BUN Creatinine Est GFR ( Amer) Est GFR (Non-Af Amer) POC Glucose (mg/dL) 115 H Random Glucose Calcium Procalcitonin Urine Color Yellow Urine Clarity Slighty-cloudy Urine pH 5.0 Ur Specific [place] 1.019 Urine Protein 30 Urine Glucose (UA) Neg Urine Ketones Negative Urine Blood Moderate Urine Nitrate Negative Urine Bilirubin Negative Urine Urobilinogen 0.2-1.0 Ur Leukocyte Esterase Mod Urine RBC (Auto) 65 H Urine Microscopic WBC 72 H Ur Squamous Epith Cells 1 Urine Bacteria Occ H Granular Casts (Auto) 2 Urine Sperm (Auto) Rare H Blood Type O POSITIVE Antibody Screen Negative BBK History Checked Patient has bt 12/30/16 12/30/16 12/30/16 09:15 10:54 16:23 WBC RBC Hgb Hct MCV MCH MCHC RDW Plt Count PT INR APTT Sodium Potassium Chloride Carbon Dioxide Anion Gap BUN Creatinine Est GFR ( Amer) Est GFR (Non-Af Amer) POC Glucose (mg/dL) 121 H 117 H Random Glucose Calcium Procalcitonin 0.09 L Urine Color Urine Clarity Urine pH Ur Specific [place] Urine Protein Urine Glucose (UA) Urine Ketones Urine Blood Urine Nitrate Urine Bilirubin Urine Urobilinogen Ur Leukocyte Esterase Urine RBC (Auto) Urine Microscopic WBC Ur Squamous Epith Cells Urine Bacteria Granular Casts (Auto) Urine Sperm (Auto) Blood Type Antibody Screen BBK History Checked
--- NOTE | 2016-12-30 20:12 | CP.PCM.PN ---
Subjective - Date & Time of Evaluation Date of Evaluation: 12/30/16 Time of Evaluation: 20:09 - Subjective Subjective: ID (ADD) NOTE HAVE ORDERED 2 CULTURES FROM [facility] AWAITING TO SEE Objective - Vital Signs/Intake and Output Vital Signs (last 24 hours): Temp Pulse Resp BP Pulse Ox 98.3 F 75 19 132/77 97 12/30/16 15:52 12/30/16 15:52 12/30/16 15:52 12/30/16 15:52 12/30/16 15:52 Intake and Output: 12/30/16 12/31/16 18:59 06:59 Intake Total 400 Output Total 403 Balance -3 - Medications Medications: Current Medications Acetaminophen (Tylenol 325mg Tab) 650 mg PO Q6 PRN PRN Reason: Pain, Mild (1-3) Acetaminophen (Tylenol 325mg Tab) 650 mg PO Q6 PRN PRN Reason: Fever >100.4 F Allopurinol (Zyloprim) 100 mg PO DAILY [facility] Last Admin: 12/30/16 09:43 Dose: 100 mg Atorvastatin Calcium (Lipitor) 10 mg PO [facility] Docusate Sodium (Colace) 100 mg PO BID [facility] Last Admin: 12/30/16 17:29 Dose: 100 mg Ferrous Sulfate (Feosol) 325 mg PO TID [facility] Last Admin: 12/30/16 17:28 Dose: 325 mg HCTZ/Losartan Potassium (Hyzaar 12.5 Mg-50 Mg) 2 tab PO DAILY [facility] Last Admin: 12/30/16 11:30 Dose: 2 tab Metoprolol Succinate (Toprol Xl) 100 mg PO DAILY [facility] Last Admin: 12/30/16 09:42 Dose: 100 mg Oxycodone/Acetaminophen (Percocet 5/325 Mg Tab) 1 tab PO Q4 PRN PRN Reason: Pain, moderate (4-7) Stop: 01/01/17 22:37 Last Admin: 12/30/16 15:28 Dose: 1 tab Sennosides (Senokot Tab) 8.6 mg PO BID [facility] Last Admin: 12/30/16 17:29 Dose: 8.6 mg Tamsulosin HCl (Flomax) 0.4 mg PO DAILY [facility] Last Admin: 12/30/16 09:43 Dose: 0.4 mg - Labs Labs: 12/30/16 05:20 12/30/16 05:20 PT 11.7 Seconds (9.8-13.1) 12/30/16 05:20 INR 1.0 (0.9-1.2) 12/30/16 05:20 APTT 26.9 Seconds (25.6-37.1) 12/30/16 05:20
[2016-12-31] MEDS: Oxycodone/Acetaminophen 5/325 mg Tab PO PRN ×2 (00:06→18:10)
[2016-12-31 09:15] LABS: HEMOGLOBIN 9.1 g/dL (12.0-18.0); MEAN CELL VOLUME 86.5 fl (80.0-94.0); MEAN CORPUSCULAR HGB CONC 32.4 g/dL (33.0-37.0); RBC 3.25 Mil/uL (4.40-5.90); RED CELL DISTRIBUTION WIDTH 16.1 % (11.5-14.5); WHITE BLOOD COUNT 6.4 K/uL (4.8-10.8)
[2016-12-31 09:31] LABS: BLOOD UREA NITROGEN 13 mg/dl (9-20); GFR AFRICAN-AMERICAN > 60; GFR NON-AFRICAN AMERICAN 54
[2016-12-31] MEDS: HCTZ/Losartan 12.5/50 Tab PO SCH (09:34)
[2016-12-31] MEDS: Metoprolol Succinate 100 mg XL Tab PO SCH (09:35)
--- NOTE | 2016-12-31 10:18 | CP.PCM.PN ---
Subjective - Date & Time of Evaluation Date of Evaluation: 12/31/16 Time of Evaluation: 09:30 - Subjective Subjective: No fever Pain controlled minimal blood in Hemovac however Wound Vac with bloody discharge denies CP no SOB no abd pain Objective - Vital Signs/Intake and Output Vital Signs (last 24 hours): Temp Pulse Resp BP Pulse Ox 99.1 F 70 20 150/75 100 12/31/16 08:37 12/31/16 09:35 12/31/16 08:37 12/31/16 09:35 12/31/16 08:37 Intake and Output: 12/31/16 12/31/16 06:59 18:59 Output Total 1100 Balance -1100 - Medications Medications: Current Medications Acetaminophen (Tylenol 325mg Tab) 650 mg PO Q6 PRN PRN Reason: Pain, Mild (1-3) Acetaminophen (Tylenol 325mg Tab) 650 mg PO Q6 PRN PRN Reason: Fever >100.4 F Allopurinol (Zyloprim) 100 mg PO DAILY [facility] Last Admin: 12/31/16 09:36 Dose: 100 mg Atorvastatin Calcium (Lipitor) 10 mg PO [facility] Last Admin: 12/30/16 22:39 Dose: 10 mg Docusate Sodium (Colace) 100 mg PO BID [facility] Last Admin: 12/31/16 09:33 Dose: 100 mg Ferrous Sulfate (Feosol) 325 mg PO TID [facility] Last Admin: 12/31/16 09:34 Dose: 325 mg HCTZ/Losartan Potassium (Hyzaar 12.5 Mg-50 Mg) 2 tab PO DAILY [facility] Last Admin: 12/31/16 09:34 Dose: 2 tab Metoprolol Succinate (Toprol Xl) 100 mg PO DAILY [facility] Last Admin: 12/31/16 09:35 Dose: 100 mg Oxycodone/Acetaminophen (Percocet 5/325 Mg Tab) 1 tab PO Q4 PRN PRN Reason: Pain, moderate (4-7) Stop: 01/01/17 22:37 Last Admin: 12/31/16 00:06 Dose: 1 tab Sennosides (Senokot Tab) 8.6 mg PO BID [facility] Last Admin: 12/31/16 09:35 Dose: 8.6 mg Tamsulosin HCl (Flomax) 0.4 mg PO DAILY [facility] Last Admin: 12/31/16 09:34 Dose: 0.4 mg - Labs Labs: 12/31/16 09:00 12/31/16 09:00 PT 11.7 Seconds (9.8-13.1) 12/30/16 05:20 INR 1.0 (0.9-1.2) 12/30/16 05:20 APTT 26.9 Seconds (25.6-37.1) 12/30/16 05:20 - Constitutional Appears: No Acute Distress - Head Exam Head Exam: NORMAL INSPECTION, NORMOCEPHALIC - Eye Exam Eye Exam: EOMI, Normal appearance - ENT Exam ENT Exam: Mucous Membranes Moist, Normal External Ear Exam - Neck Exam Neck Exam: Full ROM. absent: Meningismus - Respiratory Exam Respiratory Exam: NORMAL BREATHING PATTERN. absent: Respiratory Distress - Cardiovascular Exam Cardiovascular Exam: REGULAR RHYTHM, +S1, +S2 - GI/Abdominal Exam GI & Abdominal Exam: Soft, Normal Bowel Sounds. absent: Tenderness - Extremities Exam Extremities Exam: Normal Capillary Refill. absent: Calf Tenderness Additional comments: left knee with dressing , Hemovac in place, Wound Vac in place - Back Exam Back Exam: absent: CVA tenderness (L), CVA tenderness (R) - Neurological Exam Neurological Exam: Alert, Awake, CN II-XII Intact, Oriented x3 - Psychiatric Exam Psychiatric exam: Normal Affect, Normal Mood - Skin Skin Exam: Dry, Normal Color, Warm Assessment and Plan - Assessment and Plan (Free Text) Assessment: 76 year old male with HTN, HLD, and CKD among other chronic conditions who had a Revision of L TKR at end of 12/13/2016. He had gone home from TCU/rehab December 24. Last Tuesday he was in a wheelchair going somewhere downtown. He hit a bump, and his LLE folded under, the wound opened up and started bleeding. He went to [facility], where he apparently had a washout of the blood from the knee, and a Wound Vac and Hemovac drain placed. He is transferred here for further mgmt. Patient states pain is under control. (1) Trauma and Hematoma involving Left knee joint ( Recent Revision TKR) - accdg to pt had heavy bleeding after the trauma- had to be transfused at [facility] - Wound Vac and Hemovac placed in [facility] -Pain mgt -Consulted Dr Chan (ortho) -Consult Dr Blake (plastics) -Consult Sharon (cardiology) for pre op eval- - CT of left knee: hardware intact (2) CKD (chronic kidney disease), stage III Status: Chronic Crea now normal (3) BPH (benign prostatic hyperplasia) Status: Chronic cont Flomax (4) HTN (hypertension) Status: Chronic cont Metoprolol and Hyzaar (5) Hyperlipidemia Status: Chronic cont statin ( 6) r/o UTI UA showed leukoest and some WBC Urine c/s - started IV Ceftriaxone (6) DVT prophylaxis Status: Acute Lovenox
--- NOTE | 2016-12-31 10:34 | CP.PCM.PN ---
Subjective - Date & Time of Evaluation Date of Evaluation: 12/31/16 Time of Evaluation: 10:20 - Subjective Subjective: NO CHEST PAIN OR SOB THE PATIENT STATED THAT DR NATION TOLD HIM HE NEEDS A NEW LEFT KNEECAP AND THAT SURGERY WILL BE DONE WITH A PLASTIC SURGEON ALSO Objective - Vital Signs/Intake and Output Vital Signs (last 24 hours): Temp Pulse Resp BP Pulse Ox 99.1 F 70 20 150/75 100 12/31/16 08:37 12/31/16 09:35 12/31/16 08:37 12/31/16 09:35 12/31/16 08:37 Intake and Output: 12/31/16 12/31/16 06:59 18:59 Output Total 1100 Balance -1100 - Medications Medications: Current Medications Acetaminophen (Tylenol 325mg Tab) 650 mg PO Q6 PRN PRN Reason: Pain, Mild (1-3) Acetaminophen (Tylenol 325mg Tab) 650 mg PO Q6 PRN PRN Reason: Fever >100.4 F Allopurinol (Zyloprim) 100 mg PO DAILY [facility] Last Admin: 12/31/16 09:36 Dose: 100 mg Atorvastatin Calcium (Lipitor) 10 mg PO HS [facility] Last Admin: 12/30/16 22:39 Dose: 10 mg Docusate Sodium (Colace) 100 mg PO BID [facility] Last Admin: 12/31/16 09:33 Dose: 100 mg Ferrous Sulfate (Feosol) 325 mg PO TID [facility] Last Admin: 12/31/16 09:34 Dose: 325 mg HCTZ/Losartan Potassium (Hyzaar 12.5 Mg-50 Mg) 2 tab PO DAILY [facility] Last Admin: 12/31/16 09:34 Dose: 2 tab Metoprolol Succinate (Toprol Xl) 100 mg PO DAILY [facility] Last Admin: 12/31/16 09:35 Dose: 100 mg Oxycodone/Acetaminophen (Percocet 5/325 Mg Tab) 1 tab PO Q4 PRN PRN Reason: Pain, moderate (4-7) Stop: 01/01/17 22:37 Last Admin: 12/31/16 00:06 Dose: 1 tab Sennosides (Senokot Tab) 8.6 mg PO BID [facility] Last Admin: 12/31/16 09:35 Dose: 8.6 mg Tamsulosin HCl (Flomax) 0.4 mg PO DAILY [facility] Last Admin: 12/31/16 09:34 Dose: 0.4 mg - Labs Labs: 12/31/16 09:00 12/31/16 09:00 PT 11.7 Seconds (9.8-13.1) 12/30/16 05:20 INR 1.0 (0.9-1.2) 12/30/16 05:20 APTT 26.9 Seconds (25.6-37.1) 12/30/16 05:20 - Respiratory Exam Respiratory Exam: Clear to Ausculation Bilateral - Cardiovascular Exam Cardiovascular Exam: REGULAR RHYTHM, +S1, +S2 - Additional Findings Additional findings: LEFT KNEE X-RAY AND CT REPORTS SEEN Assessment and Plan - Assessment and Plan (Free Text) Assessment: TRAUMA TO LEFT TKR MILD CAD HYPERTENSION HYPERLIPIDEMIA Plan: CONTINUE HYZAAR, METOPROLOL AND ATORVASTATIN FOR LEFT KNEE SURGERY
[2016-12-31] MEDS ORDERED: Enoxaparin 40 mg Syringe SC STA (17:17)
--- NOTE | 2016-12-31 18:41 | CP.PCM.CON ---
History of Present Illness - History of Present Illness History of Present Illness: ID: 76 yo male CC: s/p successful Revision TKR; pt involved in ionjury with pain and L knee wound dehisciemce HPI- [facility] anmd patella ligament avulsion. Pt had undegone successful complex revision TKR at [facility] wks prior. [facility] without knee immobilizer pt sustained a fall from wheelchair and knee was violently benjt Wound dehiscied and patella ligament avulsed. Pt presents with avulsion patella ligament and wound dehiscience Pt tyransferred from [place] aftert having been taken to OR for washout Pt to be evaluated BY DR Blake pl;astic surgery it should be noted this consult was accoplished 12/30 and transrcibed today Past Patient History - Tetanus Immunizations Tetanus Immunization: Unknown - Past Medical History & Family History Past Medical History?: Yes - Past Social History Smoking Status: Former Smoker - CARDIAC Hx Cardiac Disorders: Yes Hx Hypercholesterolemia: Yes Hx Hypertension: Yes - PULMONARY Hx Respiratory Disorders: No Hx Sleep Apnea: Yes - NEUROLOGICAL Hx Neurological Disorder: No - HEENT Hx HEENT Problems: Yes Other/Comment: wears glasses - RENAL Hx Chronic Kidney Disease: Yes Other/Comment: renal insufficiency - ENDOCRINE/METABOLIC Hx Endocrine Disorders: No - HEMATOLOGICAL/ONCOLOGICAL Hx Blood Disorders: No Hx AIDS: No Hx Anemia: Yes Hx Blood Transfusions: Yes Hx Blood Transfusion Reaction: No Hx Human Immunodeficiency Virus (HIV): No - INTEGUMENTARY Hx Dermatological Problems: No - MUSCULOSKELETAL/RHEUMATOLOGICAL Hx Musculoskeletal Disorders: Yes Hx Arthritis: Yes Hx Falls: No - GASTROINTESTINAL Hx Gastrointestinal Disorders: No - GENITOURINARY/GYNECOLOGICAL Hx Genitourinary Disorders: Yes Hx Prostate Problems: Yes - PSYCHIATRIC Hx Substance Use: No - SURGICAL HISTORY Hx Surgeries: Yes Hx Joint Replacement: Yes (TOTAL LEFT KNEE REPLACEMENT X2) Other/Comment: LASER PROSTATE SX. 12/13/16 s/p ltkr revision - ANESTHESIA Hx Anesthesia: Yes Hx Anesthesia Reactions: No Hx Malignant Hyperthermia: No Meds Allergies/Adverse Reactions: Allergies Allergy/AdvReac Type Severity Reaction Status Date / Time No Known Allergies Allergy Verified 12/18/16 00:41 - Medications Medications: Current Medications Acetaminophen (Tylenol 325mg Tab) 650 mg PO Q6 PRN PRN Reason: Pain, Mild (1-3) Acetaminophen (Tylenol 325mg Tab) 650 mg PO Q6 PRN PRN Reason: Fever >100.4 F Allopurinol (Zyloprim) 100 mg PO DAILY [facility] Last Admin: 12/31/16 09:36 Dose: 100 mg Atorvastatin Calcium (Lipitor) 10 mg PO HS [facility] Last Admin: 12/30/16 22:39 Dose: 10 mg Docusate Sodium (Colace) 100 mg PO BID [facility] Last Admin: 12/31/16 16:44 Dose: 100 mg Ferrous Sulfate (Feosol) 325 mg PO TID [facility] Last Admin: 12/31/16 16:45 Dose: 325 mg HCTZ/Losartan Potassium (Hyzaar 12.5 Mg-50 Mg) 2 tab PO DAILY [facility] Last Admin: 12/31/16 09:34 Dose: 2 tab Metoprolol Succinate (Toprol Xl) 100 mg PO DAILY [facility] Last Admin: 12/31/16 09:35 Dose: 100 mg Oxycodone/Acetaminophen (Percocet 5/325 Mg Tab) 1 tab PO Q4 PRN PRN Reason: Pain, moderate (4-7) Stop: 01/01/17 22:37 Last Admin: 12/31/16 18:10 Dose: 1 tab Sennosides (Senokot Tab) 8.6 mg PO BID [facility] Last Admin: 12/31/16 16:45 Dose: 8.6 mg Tamsulosin HCl (Flomax) 0.4 mg PO DAILY [facility] Last Admin: 12/31/16 09:34 Dose: 0.4 mg Physical Exam - Additional Findings Additional findings: Systemic exam- essentiaslly within normal limits Musculoskeletal exam: stance/gait- defrred L knee immobilized in knee immobilzer L knee s/p wound washout at [facility] N/V i ntact pt unable to extend knee (L) Results - Vital Signs Recent Vital Signs: Last Vital Signs Temp 98.3 F 12/31/16 16:32 Pulse 82 12/31/16 16:32 Resp 18 12/31/16 16:32 BP 152/80 H 12/31/16 16:32 Pulse Ox 98 12/31/16 16:32 - Labs Result Diagrams: 12/31/16 09:00 12/31/16 09:00 Labs: Laboratory Results - last 24 hr 12/30/16 12/31/16 12/31/16 21:42 06:21 09:00 WBC 6.4 RBC 3.25 L Hgb 9.1 L Hct 28.1 L MCV 86.5 MCH 28.0 MCHC 32.4 L RDW 16.1 H Plt Count 133 Sodium Potassium Chloride Carbon Dioxide Anion Gap BUN Creatinine Est GFR ( Amer) Est GFR (Non-Af Amer) POC Glucose (mg/dL) 111 H 106 Random Glucose Calcium 12/31/16 12/31/16 12/31/16 09:00 11:01 15:39 WBC RBC Hgb Hct MCV MCH MCHC RDW Plt Count Sodium 138 Potassium 3.9 Chloride 106 Carbon Dioxide 28 Anion Gap 8 L BUN 13 Creatinine 1.3 Est GFR ( Amer) > 60 Est GFR (Non-Af Amer) 54 POC Glucose (mg/dL) 148 H 118 H Random Glucose 113 H Calcium 9.0 - Impressions Impression: Xray- excellent componenet position s/p complex Revision TKR wsith allograft Assessment & Plan - Assessment and Plan (Free Text) Assessment: A- s/p complex revsiion TKR with allograft P- evaluation by DR Thaddeus Blake plastic surgery plan is to repair/reconstruct patella ligament as sson as plastics can offer plan for wound coverage IT SHOULD BE NOTED THAT [facility] EVAL;UATION WAS ACCOMPLISHED 12/30 AND TRANSCRIBED TODAY
--- NOTE | 2016-12-31 18:55 | CP.PCM.PN ---
Subjective - Date & Time of Evaluation Date of Evaluation: 12/31/16 Time of Evaluation: 06:45 - Subjective Subjective: S Pt comfortable at bedrest Objective - Vital Signs/Intake and Output Vital Signs (last 24 hours): Temp Pulse Resp BP Pulse Ox 98.3 F 82 18 152/80 H 98 12/31/16 16:32 12/31/16 16:32 12/31/16 16:32 12/31/16 16:32 12/31/16 16:32 Intake and Output: 12/31/16 12/31/16 06:59 18:59 Output Total 1100 Balance -1100 - Medications Medications: Current Medications Acetaminophen (Tylenol 325mg Tab) 650 mg PO Q6 PRN PRN Reason: Pain, Mild (1-3) Acetaminophen (Tylenol 325mg Tab) 650 mg PO Q6 PRN PRN Reason: Fever >100.4 F Allopurinol (Zyloprim) 100 mg PO DAILY [facility] Last Admin: 12/31/16 09:36 Dose: 100 mg Atorvastatin Calcium (Lipitor) 10 mg PO HS [facility] Last Admin: 12/30/16 22:39 Dose: 10 mg Docusate Sodium (Colace) 100 mg PO BID [facility] Last Admin: 12/31/16 16:44 Dose: 100 mg Ferrous Sulfate (Feosol) 325 mg PO TID [facility] Last Admin: 12/31/16 16:45 Dose: 325 mg HCTZ/Losartan Potassium (Hyzaar 12.5 Mg-50 Mg) 2 tab PO DAILY [facility] Last Admin: 12/31/16 09:34 Dose: 2 tab Metoprolol Succinate (Toprol Xl) 100 mg PO DAILY [facility] Last Admin: 12/31/16 09:35 Dose: 100 mg Oxycodone/Acetaminophen (Percocet 5/325 Mg Tab) 1 tab PO Q4 PRN PRN Reason: Pain, moderate (4-7) Stop: 01/01/17 22:37 Last Admin: 12/31/16 18:10 Dose: 1 tab Sennosides (Senokot Tab) 8.6 mg PO BID [facility] Last Admin: 12/31/16 16:45 Dose: 8.6 mg Tamsulosin HCl (Flomax) 0.4 mg PO DAILY [facility] Last Admin: 12/31/16 09:34 Dose: 0.4 mg - Labs Labs: 12/31/16 09:00 12/31/16 09:00 PT 11.7 Seconds (9.8-13.1) 12/30/16 05:20 INR 1.0 (0.9-1.2) 12/30/16 05:20 APTT 26.9 Seconds (25.6-37.1) 12/30/16 05:20 - Skin Additional comments: Objective VSS Musculoskekletal stance/gait- defrred L knee dressing dry andf intact N/V intact orthopedicallyy stable s/p wound dehisciemce Assessment and Plan - Assessment and Plan (Free Text) Assessment: A- s/p wound dehiscience and patella ligam,ent avulsion P- orthopedically stable awiaing plastic surg evgal ( DR Thaddeus Blake) for patella ligament repair /reconstruction as soon as soft tissue envelope will allow
--- NOTE | 2017-01-01 07:57 | CP.PCM.PN ---
Subjective - Date & Time of Evaluation Date of Evaluation: 01/01/17 Time of Evaluation: 09:30 - Subjective Subjective: Patient seen and examined bedside. Still with pain to right knee but controleld with pain medication. hemodynamically stable, afebrile No acute issues overnight Hemovac to left knee Objective - Vital Signs/Intake and Output Vital Signs (last 24 hours): Temp Pulse Resp BP Pulse Ox 98.5 F 69 20 155/69 H 98 01/01/17 07:20 01/01/17 07:20 01/01/17 07:20 01/01/17 07:20 01/01/17 07:20 Intake and Output: 01/01/17 01/01/17 06:59 18:59 Output Total 900 Balance -900 - Medications Medications: Current Medications Acetaminophen (Tylenol 325mg Tab) 650 mg PO Q6 PRN PRN Reason: Pain, Mild (1-3) Acetaminophen (Tylenol 325mg Tab) 650 mg PO Q6 PRN PRN Reason: Fever >100.4 F Allopurinol (Zyloprim) 100 mg PO DAILY [facility] Last Admin: 12/31/16 09:36 Dose: 100 mg Atorvastatin Calcium (Lipitor) 10 mg PO HS [facility] Last Admin: 12/31/16 22:50 Dose: 10 mg Docusate Sodium (Colace) 100 mg PO BID [facility] Last Admin: 12/31/16 16:44 Dose: 100 mg Ferrous Sulfate (Feosol) 325 mg PO TID [facility] Last Admin: 12/31/16 16:45 Dose: 325 mg HCTZ/Losartan Potassium (Hyzaar 12.5 Mg-50 Mg) 2 tab PO DAILY [facility] Last Admin: 12/31/16 09:34 Dose: 2 tab Metoprolol Succinate (Toprol Xl) 100 mg PO DAILY [facility] Last Admin: 12/31/16 09:35 Dose: 100 mg Oxycodone/Acetaminophen (Percocet 5/325 Mg Tab) 1 tab PO Q4 PRN PRN Reason: Pain, moderate (4-7) Stop: 01/01/17 22:37 Last Admin: 12/31/16 18:10 Dose: 1 tab Sennosides (Senokot Tab) 8.6 mg PO BID [facility] Last Admin: 12/31/16 16:45 Dose: 8.6 mg Tamsulosin HCl (Flomax) 0.4 mg PO DAILY [facility] Last Admin: 12/31/16 09:34 Dose: 0.4 mg - Labs Labs: 12/31/16 09:00 12/31/16 09:00 PT 11.7 Seconds (9.8-13.1) 12/30/16 05:20 INR 1.0 (0.9-1.2) 12/30/16 05:20 APTT 26.9 Seconds (25.6-37.1) 12/30/16 05:20 - Constitutional Appears: Non-toxic, No Acute Distress - Head Exam Head Exam: ATRAUMATIC, NORMAL INSPECTION, NORMOCEPHALIC - Eye Exam Eye Exam: EOMI, Normal appearance, PERRL Pupil Exam: NORMAL ACCOMODATION - ENT Exam ENT Exam: Mucous Membranes Moist, Normal Exam - Neck Exam Neck Exam: Full ROM, Normal Inspection - Respiratory Exam Respiratory Exam: Clear to Ausculation Bilateral, NORMAL BREATHING PATTERN. absent: Rhonchi, Wheezes, Respiratory Distress - Cardiovascular Exam Cardiovascular Exam: REGULAR RHYTHM, RRR, +S1, +S2. absent: JVD - GI/Abdominal Exam GI & Abdominal Exam: Soft, Normal Bowel Sounds. absent: Guarding, Tenderness, Rebound - Rectal Exam Rectal Exam: Deferred - Extremities Exam Extremities Exam: Full ROM, Normal Inspection. absent: Calf Tenderness, Pedal Edema Additional comments: left knee immobilizer and hemovac in place - Back Exam Back Exam: NORMAL INSPECTION - Neurological Exam Neurological Exam: Alert, Awake, CN II-XII Intact, Oriented x3 - Psychiatric Exam Psychiatric exam: Normal Affect, Normal Mood - Skin Skin Exam: Dry, Intact, Normal Color, Warm Assessment and Plan - Assessment and Plan (Free Text) Assessment: 76 year old male with PMH HTN, HLD, BPH,CKD s/p successful revision of L TKR at end of 12/13/2016 transferred from [facility] to [facility] for further management after a fall and trauma to left knee. As per patient he fell from his wheelchair after hitting a hit a bump, and his LLE folded under, an wound opened up and started bleeding. He went to [facility], where he apparently had a washout of the blood from the knee, and a Wound Vac and Hemovac drain placed. He is transferred here for further management Patient states pain is under control. 1. Trauma and Hematoma involving Left knee joint (s/p Recent Revision TKR) with heavy bleeding after the trauma- s/p 3 unit PRBC transfusion at [facility] Wound Vac and Hemovac placed in [facility] continue pain management Dr Chan , ortho on consult Consult with Dr Blake (plastics) ID consulted. Cultures sent. Started on Zyvox CT of left knee showed intact hardware Start PT as per orth. Non weight bearing to LLE Hold anticoagulation for now 2. CKD (chronic kidney disease), stage III Chronic Crea now normal 3. BPH (benign prostatic hyperplasia) Chronic cont Flomax 4. HTN (hypertension) Chronic, labile cont Metoprolol and Hyzaar 5. Hyperlipidemia Chronic cont statin 6. r/o UTI UA showed leukoest and some WBC follow up Urine c/s given IV Ceftriaxone 7.Acute blood loss anemia s/p 3 unit PRBc transfusion with Hgb 9.3 continue monitoring continue ferrous sulfate 8. CAD stable ASa and plavix on hold 9. DVT prophylaxis SCD hold anticoagulation
[2017-01-01 08:16] LABS: HEMOGLOBIN 9.3 g/dL (12.0-18.0); MEAN CELL VOLUME 85.8 fl (80.0-94.0); MEAN CORPUSCULAR HEMOGLOBIN 28.8 pg (27.0-31.0); MEAN CORPUSCULAR HGB CONC 33.5 g/dL (33.0-37.0); RBC 3.23 Mil/uL (4.40-5.90); RED CELL DISTRIBUTION WIDTH 15.6 % (11.5-14.5); WHITE BLOOD COUNT 6.6 K/uL (4.8-10.8)
[2017-01-01] MEDS: HCTZ/Losartan 12.5/50 Tab PO SCH (08:38)
[2017-01-01 08:40] LABS: BLOOD UREA NITROGEN 15 mg/dl (9-20); CALCIUM 9.2 mg/dL (8.4-10.2); GFR AFRICAN-AMERICAN > 60; GFR NON-AFRICAN AMERICAN 54
[2017-01-01] MEDS: Metoprolol Succinate 100 mg XL Tab PO SCH (08:41)
[2017-01-01] MEDS ORDERED: Enoxaparin 40 mg Syringe SC SCH (09:00)
[2017-01-01] MEDS: Oxycodone/Acetaminophen 5/325 mg Tab PO PRN ×2 (09:36→20:26)
--- NOTE | 2017-01-01 13:08 | CP.PCM.PN ---
Subjective - Date & Time of Evaluation Date of Evaluation: 01/01/17 Time of Evaluation: 13:04 - Subjective Subjective: I D NOTE CULTURES TAKEN EVIDENCE OF SOME RENAL INSUFFICIENCY WILL NOT USE VANCOMYCIN BUT GIVE ZYVOX Objective - Vital Signs/Intake and Output Vital Signs (last 24 hours): Temp Pulse Resp BP Pulse Ox 98.5 F 70 20 155/69 H 98 01/01/17 07:20 01/01/17 08:41 01/01/17 07:20 01/01/17 08:41 01/01/17 07:20 Intake and Output: 01/01/17 01/01/17 06:59 18:59 Output Total 900 Balance -900 - Medications Medications: Current Medications Acetaminophen (Tylenol 325mg Tab) 650 mg PO Q6 PRN PRN Reason: Pain, Mild (1-3) Acetaminophen (Tylenol 325mg Tab) 650 mg PO Q6 PRN PRN Reason: Fever >100.4 F Allopurinol (Zyloprim) 100 mg PO DAILY [facility] Last Admin: 01/01/17 08:42 Dose: 100 mg Atorvastatin Calcium (Lipitor) 10 mg PO HS [facility] Last Admin: 12/31/16 22:50 Dose: 10 mg Docusate Sodium (Colace) 100 mg PO BID [facility] Last Admin: 01/01/17 08:36 Dose: 100 mg Ferrous Sulfate (Feosol) 325 mg PO TID [facility] Last Admin: 01/01/17 08:37 Dose: 325 mg HCTZ/Losartan Potassium (Hyzaar 12.5 Mg-50 Mg) 2 tab PO DAILY [facility] Last Admin: 01/01/17 08:38 Dose: 2 tab Linezolid (Zyvox 600mg/300ml D5w) 600 mg in 300 mls @ 300 mls/hr IVPB Q12 [facility] Metoprolol Succinate (Toprol Xl) 100 mg PO DAILY [facility] Last Admin: 01/01/17 08:41 Dose: 100 mg Oxycodone/Acetaminophen (Percocet 5/325 Mg Tab) 1 tab PO Q4 PRN PRN Reason: Pain, moderate (4-7) Stop: 01/01/17 22:37 Last Admin: 01/01/17 09:36 Dose: 1 tab Sennosides (Senokot Tab) 8.6 mg PO BID [facility] Last Admin: 01/01/17 08:40 Dose: 8.6 mg Tamsulosin HCl (Flomax) 0.4 mg PO DAILY [facility] Last Admin: 01/01/17 08:37 Dose: 0.4 mg - Labs Labs: 01/01/17 06:00 01/01/17 06:00 PT 11.7 Seconds (9.8-13.1) 12/30/16 05:20 INR 1.0 (0.9-1.2) 12/30/16 05:20 APTT 26.9 Seconds (25.6-37.1) 12/30/16 05:20
--- NOTE | 2017-01-01 14:29 | CP.PCM.CON ---
History of Present Illness - History of Present Illness History of Present Illness: 76 year old male with a history of HTN and CHF who underwent the 3rd revision of a left Total Knee Replacement one month ago. Apparently his left foot slipped off the stirrup of his wheelchair and he hyperflexed his left knee over the 28 of December weekend. This caused a dehiscence of the suture line. He was taken to [facility] where a hematoma was evacuated, the wound closed , and a wound vac applied. Physical examination today demonstrates an intact suture line with viable skin flaps. The leg was examined with Dr. Chan, and we agreed that primary wound closure could be performed after the patellar tendon is repaired. Neil Blake M.D. Past Patient History - Tetanus Immunizations Tetanus Immunization: Unknown - Past Medical History & Family History Past Medical History?: Yes - Past Social History Smoking Status: Former Smoker - CARDIAC Hx Cardiac Disorders: Yes Hx Hypercholesterolemia: Yes Hx Hypertension: Yes - PULMONARY Hx Respiratory Disorders: No Hx Sleep Apnea: Yes - NEUROLOGICAL Hx Neurological Disorder: No - HEENT Hx HEENT Problems: Yes Other/Comment: wears glasses - RENAL Hx Chronic Kidney Disease: Yes Other/Comment: renal insufficiency - ENDOCRINE/METABOLIC Hx Endocrine Disorders: No - HEMATOLOGICAL/ONCOLOGICAL Hx Blood Disorders: No Hx AIDS: No Hx Anemia: Yes Hx Blood Transfusions: Yes Hx Blood Transfusion Reaction: No Hx Human Immunodeficiency Virus (HIV): No - INTEGUMENTARY Hx Dermatological Problems: No - MUSCULOSKELETAL/RHEUMATOLOGICAL Hx Musculoskeletal Disorders: Yes Hx Arthritis: Yes Hx Falls: No - GASTROINTESTINAL Hx Gastrointestinal Disorders: No - GENITOURINARY/GYNECOLOGICAL Hx Genitourinary Disorders: Yes Hx Prostate Problems: Yes - PSYCHIATRIC Hx Substance Use: No - SURGICAL HISTORY Hx Surgeries: Yes Hx Joint Replacement: Yes (TOTAL LEFT KNEE REPLACEMENT X2) Other/Comment: LASER PROSTATE SX. 12/13/16 s/p ltkr revision - ANESTHESIA Hx Anesthesia: Yes Hx Anesthesia Reactions: No Hx Malignant Hyperthermia: No Meds Allergies/Adverse Reactions: Allergies Allergy/AdvReac Type Severity Reaction Status Date / Time No Known Allergies Allergy Verified 12/18/16 00:41 - Medications Medications: Current Medications Acetaminophen (Tylenol 325mg Tab) 650 mg PO Q6 PRN PRN Reason: Pain, Mild (1-3) Acetaminophen (Tylenol 325mg Tab) 650 mg PO Q6 PRN PRN Reason: Fever >100.4 F Allopurinol (Zyloprim) 100 mg PO DAILY [facility] Last Admin: 01/01/17 08:42 Dose: 100 mg Atorvastatin Calcium (Lipitor) 10 mg PO HS [facility] Last Admin: 12/31/16 22:50 Dose: 10 mg Docusate Sodium (Colace) 100 mg PO BID [facility] Last Admin: 01/01/17 08:36 Dose: 100 mg Ferrous Sulfate (Feosol) 325 mg PO TID [facility] Last Admin: 01/01/17 08:37 Dose: 325 mg HCTZ/Losartan Potassium (Hyzaar 12.5 Mg-50 Mg) 2 tab PO DAILY [facility] Last Admin: 01/01/17 08:38 Dose: 2 tab Linezolid (Zyvox 600mg/300ml D5w) 600 mg in 300 mls @ 300 mls/hr IVPB Q12 [facility] Metoprolol Succinate (Toprol Xl) 100 mg PO DAILY [facility] Last Admin: 01/01/17 08:41 Dose: 100 mg Oxycodone/Acetaminophen (Percocet 5/325 Mg Tab) 1 tab PO Q4 PRN PRN Reason: Pain, moderate (4-7) Stop: 01/01/17 22:37 Last Admin: 01/01/17 09:36 Dose: 1 tab Sennosides (Senokot Tab) 8.6 mg PO BID [facility] Last Admin: 01/01/17 08:40 Dose: 8.6 mg Tamsulosin HCl (Flomax) 0.4 mg PO DAILY [facility] Last Admin: 01/01/17 08:37 Dose: 0.4 mg Results - Vital Signs Recent Vital Signs: Last Vital Signs Temp 98.5 F 01/01/17 07:20 Pulse 70 01/01/17 08:41 Resp 20 01/01/17 07:20 BP 155/69 H 01/01/17 08:41 Pulse Ox 98 01/01/17 07:20 - Labs Result Diagrams: 01/01/17 06:00 01/01/17 06:00 Labs: Laboratory Results - last 24 hr 12/31/16 12/31/16 01/01/17 15:39 22:03 05:18 WBC RBC Hgb Hct MCV MCH MCHC RDW Plt Count Sodium Potassium Chloride Carbon Dioxide Anion Gap BUN Creatinine Est GFR ( Amer) Est GFR (Non-Af Amer) POC Glucose (mg/dL) 118 H 116 H 98 Random Glucose Calcium 01/01/17 01/01/17 06:00 06:00 WBC 6.6 RBC 3.23 L Hgb 9.3 L Hct 27.7 L MCV 85.8 MCH 28.8 MCHC 33.5 RDW 15.6 H Plt Count 143 Sodium 139 Potassium 4.4 Chloride 106 Carbon Dioxide 29 Anion Gap 9 L BUN 15 Creatinine 1.3 Est GFR ( Amer) > 60 Est GFR (Non-Af Amer) 54 POC Glucose (mg/dL) Random Glucose 86 Calcium 9.2
--- NOTE | 2017-01-01 14:47 | CP.PCM.PN ---
Subjective - Date & Time of Evaluation Date of Evaluation: 01/01/17 Time of Evaluation: 02:45 - Subjective Subjective: S- pt comfortable at bedrest encouinter accomplished in prescenc eof DR Thaddeus Blake/plastic surg Objective - Vital Signs/Intake and Output Vital Signs (last 24 hours): Temp Pulse Resp BP Pulse Ox 98.5 F 70 20 155/69 H 98 01/01/17 07:20 01/01/17 08:41 01/01/17 07:20 01/01/17 08:41 01/01/17 07:20 Intake and Output: 01/01/17 01/01/17 06:59 18:59 Output Total 900 Balance -900 - Medications Medications: Current Medications Acetaminophen (Tylenol 325mg Tab) 650 mg PO Q6 PRN PRN Reason: Pain, Mild (1-3) Acetaminophen (Tylenol 325mg Tab) 650 mg PO Q6 PRN PRN Reason: Fever >100.4 F Allopurinol (Zyloprim) 100 mg PO DAILY [facility] Last Admin: 01/01/17 08:42 Dose: 100 mg Atorvastatin Calcium (Lipitor) 10 mg PO [facility] Last Admin: 12/31/16 22:50 Dose: 10 mg Docusate Sodium (Colace) 100 mg PO BID [facility] Last Admin: 01/01/17 08:36 Dose: 100 mg Ferrous Sulfate (Feosol) 325 mg PO TID [facility] Last Admin: 01/01/17 08:37 Dose: 325 mg HCTZ/Losartan Potassium (Hyzaar 12.5 Mg-50 Mg) 2 tab PO DAILY [facility] Last Admin: 01/01/17 08:38 Dose: 2 tab Linezolid (Zyvox 600mg/300ml D5w) 600 mg in 300 mls @ 300 mls/hr IVPB Q12 [facility] Metoprolol Succinate (Toprol Xl) 100 mg PO DAILY [facility] Last Admin: 01/01/17 08:41 Dose: 100 mg Oxycodone/Acetaminophen (Percocet 5/325 Mg Tab) 1 tab PO Q4 PRN PRN Reason: Pain, moderate (4-7) Stop: 01/01/17 22:37 Last Admin: 01/01/17 09:36 Dose: 1 tab Sennosides (Senokot Tab) 8.6 mg PO BID [facility] Last Admin: 01/01/17 08:40 Dose: 8.6 mg Tamsulosin HCl (Flomax) 0.4 mg PO DAILY [facility] Last Admin: 01/01/17 08:37 Dose: 0.4 mg - Labs Labs: 01/01/17 06:00 01/01/17 06:00 PT 11.7 Seconds (9.8-13.1) 12/30/16 05:20 INR 1.0 (0.9-1.2) 12/30/16 05:20 APTT 26.9 Seconds (25.6-37.1) 12/30/16 05:20 - Additional Findings Additional findings: Afebirle/VSS pt comfortable dressing changed wound bening primary closure had been accomp[lished wound evaluarted by Dr Darrius Blake (plastic surg) Assessment and Plan - Assessment and Plan (Free Text) Assessment: A- s/p complex revisioon TKR with wound dehiscienmce and patella ligam,ent avulsion P_ to OR Tuesday for primary repair patella ligament pros cons risks and benfitis fidscussed at length NO proimises guarantees PT IS AGAIN ADMONISHED THAT HE HAS TO CONFORM TO [facility]POST OP RESTRICTIONS orthopedically stable
--- NOTE | 2017-01-01 15:42 | CP.PCM.PN ---
Subjective - Date & Time of Evaluation Date of Evaluation: 01/01/17 Time of Evaluation: 14:30 - Subjective Subjective: NO CHEST PAIN OR SOB Objective - Vital Signs/Intake and Output Vital Signs (last 24 hours): Temp Pulse Resp BP Pulse Ox 98.5 F 70 20 155/69 H 98 01/01/17 07:20 01/01/17 08:41 01/01/17 07:20 01/01/17 08:41 01/01/17 07:20 Intake and Output: 01/01/17 01/01/17 06:59 18:59 Output Total 900 Balance -900 - Medications Medications: Current Medications Acetaminophen (Tylenol 325mg Tab) 650 mg PO Q6 PRN PRN Reason: Pain, Mild (1-3) Acetaminophen (Tylenol 325mg Tab) 650 mg PO Q6 PRN PRN Reason: Fever >100.4 F Allopurinol (Zyloprim) 100 mg PO DAILY [facility] Last Admin: 01/01/17 08:42 Dose: 100 mg Atorvastatin Calcium (Lipitor) 10 mg PO HS [facility] Last Admin: 12/31/16 22:50 Dose: 10 mg Docusate Sodium (Colace) 100 mg PO BID [facility] Last Admin: 01/01/17 08:36 Dose: 100 mg Ferrous Sulfate (Feosol) 325 mg PO TID [facility] Last Admin: 01/01/17 08:37 Dose: 325 mg HCTZ/Losartan Potassium (Hyzaar 12.5 Mg-50 Mg) 2 tab PO DAILY [facility] Last Admin: 01/01/17 08:38 Dose: 2 tab Linezolid (Zyvox 600mg/300ml D5w) 600 mg in 300 mls @ 300 mls/hr IVPB Q12 [facility] Metoprolol Succinate (Toprol Xl) 100 mg PO DAILY [facility] Last Admin: 01/01/17 08:41 Dose: 100 mg Oxycodone/Acetaminophen (Percocet 5/325 Mg Tab) 1 tab PO Q4 PRN PRN Reason: Pain, moderate (4-7) Stop: 01/01/17 22:37 Last Admin: 01/01/17 09:36 Dose: 1 tab Sennosides (Senokot Tab) 8.6 mg PO BID [facility] Last Admin: 01/01/17 08:40 Dose: 8.6 mg Tamsulosin HCl (Flomax) 0.4 mg PO DAILY [facility] Last Admin: 01/01/17 08:37 Dose: 0.4 mg - Labs Labs: 01/01/17 06:00 01/01/17 06:00 PT 11.7 Seconds (9.8-13.1) 12/30/16 05:20 INR 1.0 (0.9-1.2) 12/30/16 05:20 APTT 26.9 Seconds (25.6-37.1) 12/30/16 05:20 - Respiratory Exam Respiratory Exam: Clear to Ausculation Bilateral - Cardiovascular Exam Cardiovascular Exam: REGULAR RHYTHM, +S1, +S2 - Extremities Exam Additional comments: LLE EXAMINED WITH DR NATION AND DR BAER AND ALREADY HAS PRIMARY CLOSURE, SWOLLEN Assessment and Plan - Assessment and Plan (Free Text) Assessment: HYPERTENSION HYPERLIPIDEMIA MILD CAD LEFT KNEE TRAUMA FOLLOWING REVISION Plan: CONTINUE LOSARTAN, METOPROLOL, ATORVASTATIN, FEOSOL AND ANTIBIOTICS FOR LEFT KNEE SURGERY TUESDAY
[2017-01-01] MEDS: Linezolid 600 mg in D5W 300 ml 600 MG/300 ML BAG IVPB SCH (20:45)
[2017-01-02] MEDS ORDERED: Oxycodone/Acetaminophen 5/325 mg Tab PO PRN (02:18)
[2017-01-02 07:38] LABS: HEMOGLOBIN 9.2 g/dL (12.0-18.0); MEAN CELL VOLUME 85.3 fl (80.0-94.0); MEAN CORPUSCULAR HEMOGLOBIN 28.5 pg (27.0-31.0); MEAN CORPUSCULAR HGB CONC 33.4 g/dL (33.0-37.0); RBC 3.21 Mil/uL (4.40-5.90); RED CELL DISTRIBUTION WIDTH 15.4 % (11.5-14.5); WHITE BLOOD COUNT 6.2 K/uL (4.8-10.8)
[2017-01-02 08:06] LABS: CALCIUM 9.2 mg/dL (8.4-10.2)
[2017-01-02] MEDS: Oxycodone/Acetaminophen 5/325 mg Tab PO PRN ×2 (08:20→21:14)
[2017-01-02] MEDS: Metoprolol Succinate 100 mg XL Tab PO SCH (08:21)
[2017-01-02] MEDS: Linezolid 600 mg in D5W 300 ml 600 MG/300 ML BAG IVPB SCH ×2 (08:22→21:04)
[2017-01-02] MEDS: HCTZ/Losartan 12.5/50 Tab PO SCH (08:22)
--- NOTE | 2017-01-02 09:41 | CP.PCM.PN ---
Subjective - Date & Time of Evaluation Date of Evaluation: 01/02/17 Time of Evaluation: 09:30 - Subjective Subjective: Patient seen and examined bedside. Lying in bed comfortable in NAD. Hemodynamically stable, afebrile. No acute issues overnight. For OR on Tuesday with Dr. Chan for patella ligament repair Objective - Vital Signs/Intake and Output Vital Signs (last 24 hours): Temp Pulse Resp BP Pulse Ox 98.6 F 68 20 122/71 98 01/02/17 07:37 01/02/17 08:21 01/02/17 07:37 01/02/17 07:37 01/02/17 07:37 Intake and Output: 01/02/17 01/02/17 06:59 18:59 Intake Total 300 Output Total 703 Balance -403 - Medications Medications: Current Medications Acetaminophen (Tylenol 325mg Tab) 650 mg PO Q6 PRN PRN Reason: Pain, Mild (1-3) Acetaminophen (Tylenol 325mg Tab) 650 mg PO Q6 PRN PRN Reason: Fever >100.4 F Allopurinol (Zyloprim) 100 mg PO DAILY [facility] Last Admin: 01/02/17 08:21 Dose: 100 mg Atorvastatin Calcium (Lipitor) 10 mg PO HS [facility] Last Admin: 01/01/17 21:52 Dose: 10 mg Docusate Sodium (Colace) 100 mg PO BID [facility] Last Admin: 01/02/17 08:21 Dose: 100 mg Ferrous Sulfate (Feosol) 325 mg PO TID [facility] Last Admin: 01/02/17 08:21 Dose: 325 mg HCTZ/Losartan Potassium (Hyzaar 12.5 Mg-50 Mg) 2 tab PO DAILY [facility] Last Admin: 01/02/17 08:22 Dose: 2 tab Linezolid (Zyvox 600mg/300ml D5w) 600 mg in 300 mls @ 300 mls/hr IVPB Q12 [facility] Last Admin: 01/02/17 08:22 Dose: 300 mls/hr Metoprolol Succinate (Toprol Xl) 100 mg PO DAILY [facility] Last Admin: 01/02/17 08:21 Dose: 100 mg Oxycodone/Acetaminophen (Percocet 5/325 Mg Tab) 1 tab PO Q6 PRN PRN Reason: Pain, moderate (4-7) Stop: 01/05/17 02:19 Oxycodone/Acetaminophen (Percocet 5/325 Mg Tab) 2 tab PO Q6 PRN PRN Reason: Pain, severe (8-10) Stop: 01/05/17 02:19 Last Admin: 01/02/17 08:20 Dose: 2 tab Sennosides (Senokot Tab) 8.6 mg PO BID [facility] Last Admin: 01/02/17 08:22 Dose: 8.6 mg Tamsulosin HCl (Flomax) 0.4 mg PO DAILY [facility] Last Admin: 01/02/17 08:21 Dose: 0.4 mg - Labs Labs: 01/02/17 06:00 01/02/17 06:00 PT 11.7 Seconds (9.8-13.1) 12/30/16 05:20 INR 1.0 (0.9-1.2) 12/30/16 05:20 APTT 26.9 Seconds (25.6-37.1) 12/30/16 05:20 - Constitutional Appears: Non-toxic, No Acute Distress - Head Exam Head Exam: ATRAUMATIC, NORMAL INSPECTION, NORMOCEPHALIC - Eye Exam Eye Exam: EOMI, Normal appearance, PERRL Pupil Exam: NORMAL ACCOMODATION - ENT Exam ENT Exam: Mucous Membranes Moist, Normal Exam - Neck Exam Neck Exam: Full ROM, Normal Inspection - Respiratory Exam Respiratory Exam: Clear to Ausculation Bilateral, NORMAL BREATHING PATTERN. absent: Rhonchi, Wheezes - Cardiovascular Exam Cardiovascular Exam: REGULAR RHYTHM, +S1, +S2. absent: JVD - GI/Abdominal Exam GI & Abdominal Exam: Soft, Normal Bowel Sounds. absent: Distended, Guarding, Tenderness, Rebound - Rectal Exam Rectal Exam: Deferred - Extremities Exam Extremities Exam: absent: Pedal Edema Additional comments: Left knee dressing in place swith hemovac pulses intact warm to touch, capillary refill intact - Back Exam Back Exam: NORMAL INSPECTION - Neurological Exam Neurological Exam: Alert, Awake, CN II-XII Intact, Oriented x3 - Psychiatric Exam Psychiatric exam: Normal Affect, Normal Mood - Skin Skin Exam: Dry, Normal Color, Warm Assessment and Plan - Assessment and Plan (Free Text) Plan: 76 year old male with PMH HTN, HLD, BPH,CKD s/p successful revision of L TKR at end of 12/13/2016 transferred from [facility] to [facility] for further management after a fall and trauma to left knee. As per patient he fell from his wheelchair after hitting a bump, and his LLE folded under, an wound opened up and started bleeding. He went to [facility], where he apparently had a washout of the blood from the knee, and a Wound Vac and Hemovac drain placed. He was transferred here for further management Patient states pain is under control.Ortho and plastic surgery were consulted . Patient for OR on Tuesday for patella ligament repair. 1. Trauma and Hematoma involving Left knee joint (s/p Recent Revision of TKR) with heavy bleeding after the trauma- s/p 3 unit PRBC transfusion at [facility] Wound Vac and Hemovac placed in [facility] continue pain management Dr Chan , ortho on consult CT of left knee showed intact hardware Consult with Dr Blake (plastics) appreciated Patient for OR on Tuesday for patella ligament repair ID consulted appreciated Follow up cultures Continue Zyvox Non weight bearing to LLE Hold anticoagulation for now 2. CKD (chronic kidney disease), stage III Chronic Crea now normal 3. BPH (benign prostatic hyperplasia) Chronic cont Flomax 4. HTN (hypertension) Chronic, labile cont Metoprolol and Hyzaar 5. Hyperlipidemia Chronic cont statin 6. r/o UTI UA showed leukoest and some WBC follow up Urine c/s given IV Ceftriaxone 7.Acute blood loss anemia s/p 3 unit PRBc transfusion with Hgb 9.3 continue monitoring continue ferrous sulfate 8. CAD stable ASa and plavix on hold 9. DVT prophylaxis SCD hold anticoagulation
--- NOTE | 2017-01-02 11:30 | CP.PCM.PN ---
Subjective - Date & Time of Evaluation Date of Evaluation: 01/02/17 Time of Evaluation: 11:30 - Subjective Subjective: S- pt comfortable at [id number]/no difficulty breathjing/minimal discomfort L knee Objective - Vital Signs/Intake and Output Vital Signs (last 24 hours): Temp Pulse Resp BP Pulse Ox 98.6 F 68 20 122/71 98 01/02/17 07:37 01/02/17 08:21 01/02/17 07:37 01/02/17 07:37 01/02/17 07:37 Intake and Output: 01/02/17 01/02/17 06:59 18:59 Intake Total 300 Output Total 703 Balance -403 - Medications Medications: Current Medications Acetaminophen (Tylenol 325mg Tab) 650 mg PO Q6 PRN PRN Reason: Pain, Mild (1-3) Acetaminophen (Tylenol 325mg Tab) 650 mg PO Q6 PRN PRN Reason: Fever >100.4 F Allopurinol (Zyloprim) 100 mg PO DAILY [facility] Last Admin: 01/02/17 08:21 Dose: 100 mg Atorvastatin Calcium (Lipitor) 10 mg PO HS [facility] Last Admin: 01/01/17 21:52 Dose: 10 mg Docusate Sodium (Colace) 100 mg PO BID [facility] Last Admin: 01/02/17 08:21 Dose: 100 mg Ferrous Sulfate (Feosol) 325 mg PO TID [facility] Last Admin: 01/02/17 08:21 Dose: 325 mg HCTZ/Losartan Potassium (Hyzaar 12.5 Mg-50 Mg) 2 tab PO DAILY [facility] Last Admin: 01/02/17 08:22 Dose: 2 tab Linezolid (Zyvox 600mg/300ml D5w) 600 mg in 300 mls @ 300 mls/hr IVPB Q12 [facility] Last Admin: 01/02/17 08:22 Dose: 300 mls/hr Metoprolol Succinate (Toprol Xl) 100 mg PO DAILY [facility] Last Admin: 01/02/17 08:21 Dose: 100 mg Oxycodone/Acetaminophen (Percocet 5/325 Mg Tab) 1 tab PO Q6 PRN PRN Reason: Pain, moderate (4-7) Stop: 01/05/17 02:19 Oxycodone/Acetaminophen (Percocet 5/325 Mg Tab) 2 tab PO Q6 PRN PRN Reason: Pain, severe (8-10) Stop: 01/05/17 02:19 Last Admin: 01/02/17 08:20 Dose: 2 tab Sennosides (Senokot Tab) 8.6 mg PO BID [facility] Last Admin: 01/02/17 08:22 Dose: 8.6 mg Tamsulosin HCl (Flomax) 0.4 mg PO DAILY [facility] Last Admin: 01/02/17 08:21 Dose: 0.4 mg - Labs Labs: 01/02/17 06:00 01/02/17 06:00 PT 11.7 Seconds (9.8-13.1) 12/30/16 05:20 INR 1.0 (0.9-1.2) 12/30/16 05:20 APTT 26.9 Seconds (25.6-37.1) 12/30/16 05:20 - Skin Additional comments: Objective stance/gait- defrred L knee wound benign no evidence for sepsis Assessment and Plan - Assessment and Plan (Free Text) Assessment: A- s/p- L knee avulsion patella ligamnet P- to OR for primary repair radha soto AM/ case discussed withg Dr Cholo Blake pt orthopedically stable for surgical procewdurwe PT ios read riot act and told strenly HE MUST COMPLY with post op regiment this time!!
--- NOTE | 2017-01-02 15:34 | CP.PCM.PN ---
Subjective - Date & Time of Evaluation Date of Evaluation: 01/02/17 Time of Evaluation: 14:00 - Subjective Subjective: NO CHEST PAIN OR SOB Objective - Vital Signs/Intake and Output Vital Signs (last 24 hours): Temp Pulse Resp BP Pulse Ox 98.6 F 68 20 122/71 98 01/02/17 07:37 01/02/17 08:21 01/02/17 07:37 01/02/17 07:37 01/02/17 07:37 Intake and Output: 01/02/17 01/02/17 06:59 18:59 Intake Total 300 Output Total 703 Balance -403 - Medications Medications: Current Medications Acetaminophen (Tylenol 325mg Tab) 650 mg PO Q6 PRN PRN Reason: Pain, Mild (1-3) Acetaminophen (Tylenol 325mg Tab) 650 mg PO Q6 PRN PRN Reason: Fever >100.4 F Allopurinol (Zyloprim) 100 mg PO DAILY [facility] Last Admin: 01/02/17 08:21 Dose: 100 mg Atorvastatin Calcium (Lipitor) 10 mg PO HS [facility] Last Admin: 01/01/17 21:52 Dose: 10 mg Docusate Sodium (Colace) 100 mg PO BID [facility] Last Admin: 01/02/17 08:21 Dose: 100 mg Ferrous Sulfate (Feosol) 325 mg PO TID [facility] Last Admin: 01/02/17 12:02 Dose: 325 mg HCTZ/Losartan Potassium (Hyzaar 12.5 Mg-50 Mg) 2 tab PO DAILY [facility] Last Admin: 01/02/17 08:22 Dose: 2 tab Linezolid (Zyvox 600mg/300ml D5w) 600 mg in 300 mls @ 300 mls/hr IVPB Q12 [facility] Last Admin: 01/02/17 08:22 Dose: 300 mls/hr Metoprolol Succinate (Toprol Xl) 100 mg PO DAILY [facility] Last Admin: 01/02/17 08:21 Dose: 100 mg Oxycodone/Acetaminophen (Percocet 5/325 Mg Tab) 1 tab PO Q6 PRN PRN Reason: Pain, moderate (4-7) Stop: 01/05/17 02:19 Oxycodone/Acetaminophen (Percocet 5/325 Mg Tab) 2 tab PO Q6 PRN PRN Reason: Pain, severe (8-10) Stop: 01/05/17 02:19 Last Admin: 01/02/17 08:20 Dose: 2 tab Sennosides (Senokot Tab) 8.6 mg PO BID [facility] Last Admin: 01/02/17 08:22 Dose: 8.6 mg Tamsulosin HCl (Flomax) 0.4 mg PO DAILY [facility] Last Admin: 01/02/17 08:21 Dose: 0.4 mg - Labs Labs: 01/02/17 06:00 01/02/17 06:00 PT 11.7 Seconds (9.8-13.1) 12/30/16 05:20 INR 1.0 (0.9-1.2) 12/30/16 05:20 APTT 26.9 Seconds (25.6-37.1) 12/30/16 05:20 - Respiratory Exam Respiratory Exam: Clear to Ausculation Bilateral - Cardiovascular Exam Cardiovascular Exam: REGULAR RHYTHM, +S1, +S2 Assessment and Plan - Assessment and Plan (Free Text) Assessment: LEFT KNEE TRAUMA HYPERTENSION HYPERLIPIDEMIA MILD CAD Plan: CONTINUE HYZAAR, METOPROLOL, ATORVASTATIN FOR LEFT KNEE SURGERY TOMORROW
[2017-01-03 07:06] LABS: HEMOGLOBIN 9.2 g/dL (12.0-18.0); MEAN CELL VOLUME 85.6 fl (80.0-94.0); MEAN CORPUSCULAR HEMOGLOBIN 28.2 pg (27.0-31.0); MEAN CORPUSCULAR HGB CONC 32.9 g/dL (33.0-37.0); RBC 3.27 Mil/uL (4.40-5.90); RED CELL DISTRIBUTION WIDTH 15.3 % (11.5-14.5); WHITE BLOOD COUNT 6.8 K/uL (4.8-10.8)
[2017-01-03 07:34] LABS: CALCIUM 9.2 mg/dL (8.4-10.2)
[2017-01-03 08:33] LABS: SQUAMOUS EPITHIAL < 1 /hpf (0-5); URINE BILIRUBIN NEGATIVE (NEGATIVE); URINE BLOOD NEGATIVE (NEGATIVE); URINE CLARITY CLEAR (Clear); URINE COLOR YELLOW (YELLOW); URINE GLUCOSE (UA) NEG (Normal); URINE LEUKOCYTE ESTERASE NEG Leu/uL (Negative); URINE NITRATE NEGATIVE (NEGATIVE); URINE PROTEIN NEGATIVE (NEGATIVE); URINE UROBILINOGEN 0.2-1.0 mg/dL (0.2-1.0)
[2017-01-03] MEDS: HCTZ/Losartan 12.5/50 Tab PO SCH (09:06)
[2017-01-03] MEDS: Metoprolol Succinate 100 mg XL Tab PO SCH (09:08)
[2017-01-03] MEDS ORDERED: Rocuronium 10 mg/ml (5 ml) ONE ×2 (10:11→12:03)
[2017-01-03] MEDS ORDERED: Midazolam 2 MG/2 ML VIAL ONE (10:11)
[2017-01-03] MEDS ORDERED: Propofol 10 mg/ml Inj (20 ML) ONE (10:11)
[2017-01-03] MEDS ORDERED: Etomidate 20 mg/10ml Inj IV ONE (10:12)
[2017-01-03] MEDS ORDERED: Lidocaine 4% (Laryng-O-Jet) Kit MM ONE ×2 (10:12)
[2017-01-03] MEDS ORDERED: Absorbable Gelatin Sponge Size 100 ONE (10:40)
[2017-01-03] MEDS ORDERED: Thrombin Topical 5,000 IU Spray Kit ONE (10:40)
[2017-01-03] MEDS ORDERED: Sodium Chloride 0.9% 1,000 ML IV ONE ×4 (11:00→11:15)
[2017-01-03] MEDS ORDERED: Linezolid 600 mg in D5W 300 ml IVPB ONE (11:30)
[2017-01-03] MEDS ORDERED: ePHEDrine 50 mg/ml Inj ONE ×3 (11:47→13:35)
[2017-01-03 12:41] LABS: FLUID TYPE SYNOVIAL FLUID
--- NOTE | 2017-01-03 13:05 | CP.PCM.PN ---
Subjective - Date & Time of Evaluation Date of Evaluation: 01/03/17 Time of Evaluation: 09:00 - Subjective Subjective: NO CHEST PAIN Objective - Vital Signs/Intake and Output Vital Signs (last 24 hours): Temp Pulse Resp BP Pulse Ox 98.5 F 94 H 20 90/63 L 97 01/03/17 09:00 01/03/17 09:00 01/03/17 09:00 01/03/17 09:08 01/03/17 09:00 Intake and Output: 01/03/17 01/03/17 06:59 18:59 Intake Total 400 325 Output Total 450 Balance -50 325 - Medications Medications: Current Medications Acetaminophen (Tylenol 325mg Tab) 650 mg PO Q6 PRN PRN Reason: Pain, Mild (1-3) Acetaminophen (Tylenol 325mg Tab) 650 mg PO Q6 PRN PRN Reason: Fever >100.4 F Allopurinol (Zyloprim) 100 mg PO DAILY [facility] Last Admin: 01/03/17 09:08 Dose: Not Given Atorvastatin Calcium (Lipitor) 10 mg PO HS [facility] Last Admin: 01/02/17 21:04 Dose: 10 mg Docusate Sodium (Colace) 100 mg PO BID [facility] Last Admin: 01/03/17 09:05 Dose: Not Given Ferrous Sulfate (Feosol) 325 mg PO TID [facility] Last Admin: 01/03/17 09:05 Dose: Not Given HCTZ/Losartan Potassium (Hyzaar 12.5 Mg-50 Mg) 2 tab PO DAILY [facility] Last Admin: 01/03/17 09:06 Dose: Not Given Linezolid (Zyvox 600mg/300ml D5w) 600 mg in 300 mls @ 300 mls/hr IVPB Q12 [facility] Last Admin: 01/02/17 21:04 Dose: 300 mls/hr Oxycodone/Acetaminophen (Percocet 5/325 Mg Tab) 1 tab PO Q6 PRN PRN Reason: Pain, moderate (4-7) Stop: 01/05/17 02:19 Oxycodone/Acetaminophen (Percocet 5/325 Mg Tab) 2 tab PO Q6 PRN PRN Reason: Pain, severe (8-10) Stop: 01/05/17 02:19 Last Admin: 01/02/17 21:14 Dose: 2 tab Sennosides (Senokot Tab) 8.6 mg PO BID [facility] Last Admin: 01/03/17 09:06 Dose: Not Given Tamsulosin HCl (Flomax) 0.4 mg PO DAILY [facility] Last Admin: 01/03/17 09:06 Dose: Not Given - Labs Labs: 01/03/17 05:50 01/03/17 05:50 PT 11.7 Seconds (9.8-13.1) 12/30/16 05:20 INR 1.0 (0.9-1.2) 12/30/16 05:20 APTT 26.9 Seconds (25.6-37.1) 12/30/16 05:20 - Respiratory Exam Respiratory Exam: Clear to Ausculation Bilateral - Cardiovascular Exam Cardiovascular Exam: REGULAR RHYTHM Assessment and Plan - Assessment and Plan (Free Text) Assessment: LEFT KNEE TRAUMA HYPERTENSION HYPERLIPIDEMIA MILD CAD Plan: FOR LEFT KNEE SURGERY TODAY PATIENT IS CLEARED FOR SURGERY FROM THE CARDIAC STANDPOINT
[2017-01-03] MEDS ORDERED: HEMOSTATIC MATRIX 10 ML DIS.NEEDLE TOP ONE (13:20)
[2017-01-03 13:35] LABS: SF GROSS APPEARANCE BLOODY (CLEAR); SYNOVIAL FLUID COMMENT TURBID
[2017-01-03 13:50] LABS: FLUID TYPE SYNOVIAL FLUID
[2017-01-03] MEDS ORDERED: Sevoflurane - Inhalation Anesthetic Liq (250 ml) ONE (13:50)
[2017-01-03] MEDS ORDERED: Neostigmine Methylsulfate 3mg/3ml Syringe IV ONE (14:17)
[2017-01-03] MEDS ORDERED: HYDROmorphone 0.5 mg/0.5 ml ISec IVP PRN ×2 (14:56→16:17)
[2017-01-03 15:31] LABS: SYNOVIAL FLUID MONO/MACROPHAGE 0 % (0-0)
[2017-01-03 15:31] LABS: SF GROSS APPEARANCE BLOODY (CLEAR); SYNOVIAL FLUID COMMENT CLOUDY; SYNOVIAL FLUID MONO/MACROPHAGE 3 % (0-0)
--- NOTE | 2017-01-03 17:22 | CP.PCM.PN ---
Subjective - Date & Time of Evaluation Date of Evaluation: 01/03/17 Time of Evaluation: 17:15 - Subjective Subjective: Pt seen and examined. Had revision of left TKR plus patellar ligament repair. RN in recovery claimed patient complained of mild SOB which responded to O2 supplement by NC at 2LPM. O2 sat was 100%. Denied chest pain. Objective - Vital Signs/Intake and Output Vital Signs (last 24 hours): Temp Pulse Resp BP Pulse Ox 97.4 F L 112 H 18 141/81 100 01/03/17 16:35 01/03/17 16:35 01/03/17 16:35 01/03/17 16:35 01/03/17 16:35 Intake and Output: 01/03/17 01/03/17 06:59 18:59 Intake Total 400 2475 Output Total 450 Balance -50 2475 - Medications Medications: Current Medications Acetaminophen (Tylenol 325mg Tab) 650 mg PO Q6 PRN PRN Reason: Pain, Mild (1-3) Acetaminophen (Tylenol 325mg Tab) 650 mg PO Q6 PRN PRN Reason: Fever >100.4 F Allopurinol (Zyloprim) 100 mg PO DAILY [facility] Last Admin: 01/03/17 09:08 Dose: Not Given Atorvastatin Calcium (Lipitor) 10 mg PO HS [facility] Last Admin: 01/02/17 21:04 Dose: 10 mg Docusate Sodium (Colace) 100 mg PO BID [facility] Last Admin: 01/03/17 09:05 Dose: Not Given Ferrous Sulfate (Feosol) 325 mg PO TID [facility] Last Admin: 01/03/17 09:05 Dose: Not Given HCTZ/Losartan Potassium (Hyzaar 12.5 Mg-50 Mg) 2 tab PO DAILY [facility] Last Admin: 01/03/17 09:06 Dose: Not Given Linezolid (Zyvox 600mg/300ml D5w) 600 mg in 300 mls @ 300 mls/hr IVPB Q12 [facility] Last Admin: 01/02/17 21:04 Dose: 300 mls/hr Lactated Ringer's (Lactated Ringer's) 1,000 mls @ 50 mls/hr IV .Q20H [facility] Oxycodone/Acetaminophen (Percocet 5/325 Mg Tab) 1 tab PO Q6 PRN PRN Reason: Pain, moderate (4-7) Stop: 01/05/17 02:19 Oxycodone/Acetaminophen (Percocet 5/325 Mg Tab) 2 tab PO Q6 PRN PRN Reason: Pain, severe (8-10) Stop: 01/05/17 02:19 Last Admin: 01/02/17 21:14 Dose: 2 tab Sennosides (Senokot Tab) 8.6 mg PO BID [facility] Last Admin: 01/03/17 09:06 Dose: Not Given Tamsulosin HCl (Flomax) 0.4 mg PO DAILY [facility] Last Admin: 01/03/17 09:06 Dose: Not Given - Labs Labs: 01/03/17 05:50 01/03/17 05:50 PT 11.7 Seconds (9.8-13.1) 12/30/16 05:20 INR 1.0 (0.9-1.2) 12/30/16 05:20 APTT 26.9 Seconds (25.6-37.1) 12/30/16 05:20 - Constitutional Appears: No Acute Distress - Head Exam Head Exam: ATRAUMATIC - Eye Exam Eye Exam: absent: Scleral icterus - ENT Exam ENT Exam: Mucous Membranes Moist - Neck Exam Neck Exam: absent: Meningismus - Respiratory Exam Respiratory Exam: absent: Rhonchi, Wheezes, Respiratory Distress - Cardiovascular Exam Cardiovascular Exam: Tachycardia - GI/Abdominal Exam GI & Abdominal Exam: Soft. absent: Tenderness - Rectal Exam Rectal Exam: Deferred - Extremities Exam Extremities Exam: Joint Swelling (left knee held in ) - Neurological Exam Neurological Exam: Alert, Oriented x3 - Psychiatric Exam Psychiatric exam: Normal Affect - Skin Skin Exam: Dry, Intact Assessment and Plan - Assessment and Plan (Free Text) Assessment: 76 yo male with history of OA, LEONARDO, HTN, HLD, Renal Insufficiency and BPH had revision of left TKR on 12/13/2016 and was discharged from TCU on 12/24/2016. The next day patient had a fall injuring his left knee causing the wound to open. He also had large amount of bleeding and was admitted at [facility] where he received 3 units of PRBC. Wound Vac and Hemovac were placed. He was transferred to [facility] for further management since his orthopedist works here. 1. Trauma and Hematoma of Left Knee (Post Revision of TKR) had another revision with patellar tendon repair of left knee received 1 unit of PRBC prior to surgery and another 2 units post surgery complained of mild SOB which responded immediately to O2 supplement O2 sat at 2LPM of O2 was 100% CXray: both lungs were clear, no cardiomegaly noted also to be tachycardic, however patient had not taken his Metoprolol since this morning since he was NPO for surgery resume Metoprolol 50mg PO q 12hrs transfer to telemetry for monitoring 2. HTN (hypertension) BP stable resume Metoprolol and Hyzaar 3. Acute blood loss anemia Hgb 11.2 received 3 units of PRBC today continue monitoring continue ferrous sulfate 4. BPH (benign prostatic hyperplasia) Chronic cont Flomax
[2017-01-03 17:36] LABS: BASO % 0.2 % (0.0-2.0); EOS # 0.2 K/uL (0.0-0.7); EOS % 1.8 % (0.0-4.0); HEMOGLOBIN 11.2 g/dL (12.0-18.0); LYMPH # 1.2 K/uL (1.0-4.3); MEAN CELL VOLUME 87.1 fl (80.0-94.0); MEAN CORPUSCULAR HEMOGLOBIN 28.2 pg (27.0-31.0); MEAN CORPUSCULAR HGB CONC 32.4 g/dL (33.0-37.0); MEAN PLATELET VOLUME 7.5 fl (7.2-11.7); MONO % 8.9 % (0.0-10.0); NEUT # 8.4 K/uL (1.8-7.0); NEUT % 78.1 % (50.0-75.0); RBC 3.98 Mil/uL (4.40-5.90); RED CELL DISTRIBUTION WIDTH 15.3 % (11.5-14.5); WHITE BLOOD COUNT 10.7 K/uL (4.8-10.8)
--- NOTE | 2017-01-03 17:52 | RAD ---
HISTORY: Shortness of breath. Portable study 16:10. COMPARISON: 12/13/2016. FINDINGS: LUNGS: No active pulmonary disease. PLEURA: No significant pleural effusion identified, no pneumothorax apparent. CARDIOVASCULAR: No radiographic findings to suggest acute or significant cardiovascular disease. OSSEOUS STRUCTURES: No significant abnormalities. VISUALIZED UPPER ABDOMEN: Normal. OTHER FINDINGS: None. IMPRESSION: No active disease. No significant interval change compared to the prior examination(s).
[2017-01-03 18:00] LABS: CALCIUM 8.9 mg/dL (8.4-10.2)
--- NOTE | 2017-01-03 18:11 | PCM.SURG1 ---
Surgeon's Initial Post Op Note - Surgeon's Notes Surgeon: Dustin Hydrator: EASTON Mayo/ Celia Abdul, 2nd assist Type of Anesthesia: General Endo, Spinal Anesthesia Administered By: DR Putnam/Dr raiens Pre-Operative Diagnosis: Wound dehiscience L knee-s/p Revision TKR L. Patella ligament Rupture L knee. Operative Findings: as above Post-Operative Diagnosis: as above Operation Performed: Primary repair patella ligament. \lateral,patella release. anterior and posterior synovectomy. repair quad tendon Specimen/Specimens Removed: tendon/synovium Estimated Blood Loss: EBL {In ML}: 400 Blood Products Given: PRBC Drains Used: Hemovac Post-Op Condition: Fair Date of Surgery/Procedure: 01/03/17 Time of Surgery/Procedure: 12:15 (time in room/anaesthesiua indcution time- 11: 04/)
[2017-01-03] MEDS: Lactated Ringer's 1,000 ML IV SCH (21:58)
[2017-01-03] MEDS: Linezolid 600 mg in D5W 300 ml 600 MG/300 ML BAG IVPB SCH (21:59)
[2017-01-03] MEDS: Oxycodone/Acetaminophen 5/325 mg Tab PO PRN (22:00)
[2017-01-04] MEDS: Oxycodone/Acetaminophen 5/325 mg Tab PO PRN ×3 (03:40→21:12)
[2017-01-04] MEDS: Linezolid 600 mg in D5W 300 ml 600 MG/300 ML BAG IVPB SCH ×2 (08:59→21:12)
[2017-01-04] MEDS: HCTZ/Losartan 12.5/50 Tab PO SCH (09:04)
--- NOTE | 2017-01-04 11:05 | CP.PCM.PN ---
Subjective - Date & Time of Evaluation Date of Evaluation: 01/04/17 Time of Evaluation: 08:45 - Subjective Subjective: NO CHEST PAIN OR SOB Objective - Vital Signs/Intake and Output Vital Signs (last 24 hours): Temp Pulse Resp BP Pulse Ox 98.2 F 80 18 113/70 98 01/04/17 09:00 01/04/17 09:04 01/04/17 09:00 01/04/17 09:04 01/04/17 09:00 Intake and Output: 01/04/17 01/04/17 06:59 18:59 Output Total 80 Balance -80 - Medications Medications: Current Medications Acetaminophen (Tylenol 325mg Tab) 650 mg PO Q6 PRN PRN Reason: Pain, Mild (1-3) Acetaminophen (Tylenol 325mg Tab) 650 mg PO Q6 PRN PRN Reason: Fever >100.4 F Allopurinol (Zyloprim) 100 mg PO DAILY [facility] Last Admin: 01/04/17 09:03 Dose: 100 mg Atorvastatin Calcium (Lipitor) 10 mg PO HS [facility] Last Admin: 01/03/17 21:58 Dose: 10 mg Docusate Sodium (Colace) 100 mg PO BID [facility] Last Admin: 01/04/17 09:02 Dose: 100 mg Ferrous Sulfate (Feosol) 325 mg PO TID [facility] Last Admin: 01/04/17 09:02 Dose: 325 mg HCTZ/Losartan Potassium (Hyzaar 12.5 Mg-50 Mg) 2 tab PO DAILY [facility] Last Admin: 01/04/17 09:04 Dose: 2 tab Linezolid (Zyvox 600mg/300ml D5w) 600 mg in 300 mls @ 300 mls/hr IVPB Q12 [facility] Last Admin: 01/04/17 08:59 Dose: 300 mls/hr Lactated Ringer's (Lactated Ringer's) 1,000 mls @ 50 mls/hr IV .Q20H [facility] Last Admin: 01/03/17 21:58 Dose: 50 mls/hr Metoprolol Tartrate (Lopressor) 50 mg PO Q12 [facility] Last Admin: 01/04/17 09:04 Dose: 50 mg Oxycodone/Acetaminophen (Percocet 5/325 Mg Tab) 1 tab PO Q6 PRN PRN Reason: Pain, moderate (4-7) Stop: 01/05/17 02:19 Oxycodone/Acetaminophen (Percocet 5/325 Mg Tab) 2 tab PO Q6 PRN PRN Reason: Pain, severe (8-10) Stop: 01/05/17 02:19 Last Admin: 01/04/17 03:40 Dose: 2 tab Sennosides (Senokot Tab) 8.6 mg PO BID [facility] Last Admin: 01/04/17 09:03 Dose: 8.6 mg Tamsulosin HCl (Flomax) 0.4 mg PO DAILY [facility] Last Admin: 01/04/17 09:02 Dose: 0.4 mg - Labs Labs: 01/03/17 17:31 01/03/17 17:31 PT 11.7 Seconds (9.8-13.1) 12/30/16 05:20 INR 1.0 (0.9-1.2) 12/30/16 05:20 APTT 26.9 Seconds (25.6-37.1) 12/30/16 05:20 - Respiratory Exam Respiratory Exam: Clear to Ausculation Bilateral - Cardiovascular Exam Cardiovascular Exam: REGULAR RHYTHM, +S1, +S2 - Additional Findings Additional findings: RADIOLOGICAL ENGINEER NSR OR REPORT REVIEWED AND PATIENT HAD REPAIR OF LEFT PATELLA LIGAMENT YESTERDAY HE HAD A BLOOD LOSS OF ~ 400 CC AND RECEIVED A BLOOD TRANSFUSION Assessment and Plan - Assessment and Plan (Free Text) Assessment: LEFT KNEE SURGERY HYPERTENSION HYPERLIPIDEMIA MILD CAD Plan: CONTINUE HYZAAR, METOPROLOL, ATORVASTATIN, FEOSOL, ANTIBIOTICS EKG AND CBC ORDERED
--- NOTE | 2017-01-04 11:09 | RAD ---
PROCEDURE: Left Knee Radiographs. HISTORY: Pain. COMPARISON: 12/30/2016 FINDINGS: BONES: Status post left knee arthroplasty. Prosthesis grossly intact. No osseous fracture. Drainage catheter noted. Anterior cutaneous bryon noted. JOINTS: As above JOINT EFFUSION: None. OTHER FINDINGS: None. IMPRESSION: Status post left knee arthroplasty.
[2017-01-04] MEDS: Lactated Ringer's 1,000 ML IV SCH (12:16)
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
--- NOTE | 2017-01-04 15:06 | CARD ---
APPROVED REPORT EKG Measurement Heart [id number] <Conclusion> Normal sinus rhythm Left axis deviation Nonspecific intraventricular conduction delay Abnormal ECG
--- NOTE | 2017-01-04 18:44 | CP.PCM.PN ---
Subjective - Date & Time of Evaluation Date of Evaluation: 01/04/17 Time of Evaluation: 18:42 - Subjective Subjective: I D NOTE PATIENT C VRE ,ALREADY ON ZYVOX CONTINUE Objective - Vital Signs/Intake and Output Vital Signs (last 24 hours): Temp Pulse Resp BP Pulse Ox 98.8 F 78 18 99/61 L 98 01/04/17 17:00 01/04/17 17:00 01/04/17 17:00 01/04/17 17:00 01/04/17 17:00 Intake and Output: 01/04/17 01/04/17 06:59 18:59 Output Total 80 Balance -80 - Medications Medications: Current Medications Acetaminophen (Tylenol 325mg Tab) 650 mg PO Q6 PRN PRN Reason: Pain, Mild (1-3) Acetaminophen (Tylenol 325mg Tab) 650 mg PO Q6 PRN PRN Reason: Fever >100.4 F Allopurinol (Zyloprim) 100 mg PO DAILY [facility] Last Admin: 01/04/17 09:03 Dose: 100 mg Atorvastatin Calcium (Lipitor) 10 mg PO HS [facility] Last Admin: 01/03/17 21:58 Dose: 10 mg Docusate Sodium (Colace) 100 mg PO BID [facility] Last Admin: 01/04/17 17:27 Dose: 100 mg Ferrous Sulfate (Feosol) 325 mg PO TID [facility] Last Admin: 01/04/17 17:27 Dose: 325 mg HCTZ/Losartan Potassium (Hyzaar 12.5 Mg-50 Mg) 2 tab PO DAILY [facility] Last Admin: 01/04/17 09:04 Dose: 2 tab Linezolid (Zyvox 600mg/300ml D5w) 600 mg in 300 mls @ 300 mls/hr IVPB Q12 [facility] Last Admin: 01/04/17 08:59 Dose: 300 mls/hr Lactated Ringer's (Lactated Ringer's) 1,000 mls @ 50 mls/hr IV .Q20H [facility] Last Admin: 01/04/17 12:16 Dose: 50 mls/hr Metoprolol Tartrate (Lopressor) 50 mg PO Q12 [facility] Last Admin: 01/04/17 09:04 Dose: 50 mg Oxycodone/Acetaminophen (Percocet 5/325 Mg Tab) 1 tab PO Q6 PRN PRN Reason: Pain, moderate (4-7) Stop: 01/05/17 02:19 Oxycodone/Acetaminophen (Percocet 5/325 Mg Tab) 2 tab PO Q6 PRN PRN Reason: Pain, severe (8-10) Stop: 01/05/17 02:19 Last Admin: 01/04/17 12:13 Dose: 2 tab Sennosides (Senokot Tab) 8.6 mg PO BID [facility] Last Admin: 01/04/17 17:27 Dose: 8.6 mg Tamsulosin HCl (Flomax) 0.4 mg PO DAILY [facility] Last Admin: 01/04/17 09:02 Dose: 0.4 mg - Labs Labs: 01/03/17 17:31 01/03/17 17:31 PT 11.7 Seconds (9.8-13.1) 12/30/16 05:20 INR 1.0 (0.9-1.2) 12/30/16 05:20 APTT 26.9 Seconds (25.6-37.1) 12/30/16 05:20
[2017-01-05] MEDS ORDERED: Oxycodone/Acetaminophen 5/325 mg Tab PO PRN ×2 (02:35→02:36)
[2017-01-05] MEDS: Lactated Ringer's 1,000 ML IV SCH (06:03)
[2017-01-05 07:52] LABS: MEAN CELL VOLUME 85.9 fl (80.0-94.0); MEAN CORPUSCULAR HEMOGLOBIN 28.7 pg (27.0-31.0); MEAN CORPUSCULAR HGB CONC 33.4 g/dL (33.0-37.0); RBC 2.75 Mil/uL (4.40-5.90); RED CELL DISTRIBUTION WIDTH 15.6 % (11.5-14.5); WHITE BLOOD COUNT 7.1 K/uL (4.8-10.8)
[2017-01-05 07:59] LABS: HEMOGLOBIN 7.9 g/dL (12.0-18.0)
--- NOTE | 2017-01-05 09:51 | CP.PCM.DIS ---
Provider - Provider Date of Admission: 12/29/16 22:36 Attending physician: Gertrudis Barillas MD Primary care physician: Jose Elias Chan III, MD Consults: ortho consult ID consult PT/OT Time Spent in preparation of Discharge (in minutes): 20 Hospital Course - Lab Results Lab Results: Micro Results 01/03/17 13:42 Knee - Left Anaerobic Culture - Final NO ANAEROBES ISOLATED. 01/03/17 13:42 Other: Please Indicate Mycobacterial Culture - Preliminary 01/03/17 13:50 Knee - Left Gram Stain - Final 01/03/17 13:50 Knee - Left Wound Culture - Preliminary NO GROWTH AFTER 24 HOURS 01/03/17 13:50 Knee - Left Gram Stain - Final 01/03/17 13:50 Knee - Left Wound Culture - Preliminary NO GROWTH AFTER 24 HOURS 01/03/17 13:50 Knee - Left Gram Stain - Final 01/03/17 13:50 Knee - Left Wound Culture - Preliminary NO GROWTH AFTER 24 HOURS 01/03/17 13:50 Knee - Left Gram Stain - Final 01/03/17 13:50 Knee - Left Wound Culture - Preliminary NO GROWTH AFTER 24 HOURS 01/03/17 13:50 Knee - Left Gram Stain - Final 01/03/17 13:50 Knee - Left Wound Culture - Preliminary NO GROWTH AFTER 24 HOURS 01/03/17 13:50 Knee - Left Gram Stain - Final 01/03/17 13:50 Knee - Left Wound Culture - Preliminary NO GROWTH AFTER 24 HOURS 01/03/17 13:50 Knee - Left Gram Stain - Final 01/03/17 13:50 Knee - Left Wound Culture - Preliminary NO GROWTH AFTER 24 HOURS 01/03/17 13:50 Knee - Left Gram Stain - Final 01/03/17 13:50 Knee - Left Wound Culture - Preliminary NO GROWTH AFTER 24 HOURS 01/03/17 12:35 Knee - Left Gram Stain - Final 01/03/17 12:35 Knee - Left Wound Culture - Preliminary Gram Negative Ki 01/03/17 13:42 Synovial Fluid Gram Stain - Final 01/03/17 13:42 Synovial Fluid Body Fluid Culture - Preliminary Gram Negative Ki 01/03/17 12:48 Knee - Left Gram Stain - Final 01/03/17 12:48 Knee - Left Wound Culture - Preliminary Gram Negative Ki 01/03/17 12:48 Knee - Left Gram Stain - Final 01/03/17 12:48 Knee - Left Wound Culture - Preliminary Gram Negative Ki 01/03/17 12:48 Knee - Left Gram Stain - Final 01/03/17 12:48 Knee - Left Wound Culture - Preliminary Gram Negative Ki 01/03/17 12:48 Knee - Left Gram Stain - Final 01/03/17 12:48 Knee - Left Wound Culture - Preliminary Gram Negative Ki 12/30/16 08:03 Knee - Left Gram Stain - Final 12/30/16 08:03 Knee - Left Wound Culture - Final Vancomycin Resistant E.faecium 12/31/16 15:47 Aspirate - Knee-Left Gram Stain - Final 12/31/16 15:47 Aspirate - Knee-Left Wound Culture - Final Vancomycin Resistant E.faecium 01/03/17 12:48 Knee - Left Gram Stain - Final 01/03/17 12:48 Knee - Left Wound Culture - Preliminary Gram Negative Ki 01/03/17 12:48 Knee - Left Gram Stain - Final 01/03/17 12:48 Knee - Left Wound Culture - Preliminary Gram Negative Ki 01/03/17 12:48 Knee - Left Gram Stain - Final 01/03/17 12:48 Knee - Left Wound Culture - Preliminary Gram Negative Ki 01/03/17 12:35 Synovial Fluid Gram Stain - Final 12/30/16 20:30 Urine Urine Culture - Final No Growth (<1,000 CFU/ML) Most Recent Lab Values WBC 7.1 K/uL (4.8-10.8) 01/05/17 06:15 RBC 2.75 Mil/uL (4.40-5.90) L 01/05/17 06:15 Hgb 7.9 g/dL (12.0-18.0) L D 01/05/17 06:15 Hct 23.6 % (35.0-51.0) L 01/05/17 06:15 MCV 85.9 fl (80.0-94.0) 01/05/17 06:15 MCH 28.7 pg (27.0-31.0) 01/05/17 06:15 MCHC 33.4 g/dL (33.0-37.0) 01/05/17 06:15 RDW 15.6 % (11.5-14.5) H 01/05/17 06:15 Plt Count 143 K/uL (130-400) 01/05/17 06:15 MPV 7.5 fl (7.2-11.7) 01/03/17 17:31 Neut % (Auto) 78.1 % (50.0-75.0) H 01/03/17 17:31 Lymph % (Auto) 11.0 % (20.0-40.0) L 01/03/17 17:31 [place] % (Auto) 8.9 % (0.0-10.0) 01/03/17 17:31 Eos % (Auto) 1.8 % (0.0-4.0) 01/03/17 17: Baso % (Auto) 0.2 % (0.0-2.0) 01/03/17 17: Neut # 8.4 K/uL (1.8-7.0) H 01/03/17 17:31 Lymph # 1.2 K/uL (1.0-4.3) 01/03/17 17: [place] # 1.0 K/uL (0.0-0.8) H 01/03/17 17:31 Eos # 0.2 K/uL (0.0-0.7) 01/03/17 17: Baso # 0.0 K/uL (0.0-0.2) 01/03/17 17:31 PT 11.7 Seconds (9.8-13.1) 12/30/16 05:20 INR 1.0 (0.9-1.2) 12/30/16 05:20 APTT 26.9 Seconds (25.6-37.1) 12/30/16 05:20 Sodium 136 mmol/l (132-148) 01/03/17 17:31 Potassium 3.9 MMOL/L (3.6-5.0) 01/03/17 17:31 Chloride 104 mmol/L (98-107) 01/03/17 17:31 Carbon Dioxide 25 mmol/L (22-30) 01/03/17 17:31 Anion Gap 11 (10-20) 01/03/17 17:31 BUN 17 mg/dl (9-20) 01/03/17 17:31 Creatinine 1.5 mg/dL (0.8-1.5) 01/03/17 17: Est GFR ( Amer) 55 01/03/17 17:31 Est GFR (Non-Af Amer) 45 01/03/17 17:31 POC Glucose (mg/dL) 104 mg/dL (65-110) 01/03/17 05:11 Random Glucose 132 mg/dL (75-110) H 01/03/17 17:31 Calcium 8.9 mg/dL (8.4-10.2) 01/03/17 17:31 Procalcitonin 0.09 NG/ML (0.19-0.49) L 12/30/16 09:15 Urine Color Yellow (YELLOW) 01/03/17 08:07 Urine Clarity Clear (Clear) 01/03/17 08:07 Urine pH 6.0 (5.0-8.0) 01/03/17 08:07 Ur Specific [place] 1.009 (1.003-1.030) 01/03/17 08:07 Urine Protein Negative mg/dL (NEGATIVE) 01/03/17 08:07 Urine Glucose (UA) Neg mg/dL (Normal) 01/03/17 08:07 Urine Ketones Negative mg/dL (NEGATIVE) 01/03/17 08:07 Urine Blood Negative (NEGATIVE) 01/03/17 08:07 Urine Nitrate Negative (NEGATIVE) 01/03/17 08:07 Urine Bilirubin Negative (NEGATIVE) 01/03/17 08:07 Urine Urobilinogen 0.2-1.0 mg/dL (0.2-1.0) 01/03/17 08:07 Ur Leukocyte Esterase Neg Andres/uL (Negative) 01/03/17 08:07 Urine RBC (Auto) 1 /hpf (0-3) 01/03/17 08:07 Urine Microscopic WBC 1 /hpf (0-5) 01/03/17 08:07 Ur Squamous Epith Cells < 1 /hpf (0-5) 01/03/17 08:07 Urine Bacteria Occ (<OCC) H 12/30/16 08:36 Granular Casts (Auto) 2 /lpf (0-1) 12/30/16 08:36 Urine Sperm (Auto) Rare /hpf (NONE) H 12/30/16 08:36 Fluid Type Synovial fluid 01/03/17 13:42 Synovial WBC 33.0 /mm3 (0.0-150.0) 01/03/17 13:42 Synovial RBC 82545.0 /mm3 (0.0-0.0) H 01/03/17 13:42 Synovial Neutrophils 33.0 % (0-0) H 01/03/17 13:42 Synovial Lymphocytes 14.0 % (0-0) H 01/03/17 13:42 Synov Monos/Macrophage 3 % (0-0) H 01/03/17 13:42 Synovial Fluid Comment Cloudy 01/03/17 13:42 Blood Type O POSITIVE 01/02/17 11:50 Antibody Screen Negative 01/02/17 11:50 Crossmatch See Detail 01/02/17 11:50 BBK History Checked Patient has bt 01/02/17 11:50 - Hospital Course Hospital Course: 76 yo male with history of OA, LEONARDO, HTN, HLD, Renal Insufficiency and BPH had revision of left TKR on 12/13/2016 and was discharged from TCU on 12/24/2016. The next day patient fell from his wheelchair after hitting a bump in the street injuring his left knee and causing the wound to open. He had large amount of bleeding and was admitted at [facility] where he received 3 units of PRBC. Wound Vac and Hemovac were placed. He was later transferred to [facility] for further management since his orthopedist works here.Plastic surgery consulted, Dr Blake and recommended patella ligament repair and primary wound closure. Patient taken to OR and underwent patella tendon repair.Cultures from left kne were sent and came positive for VRE and gram negative ki. ID consulted and recommended Zyvox and maxipime IV .He was transfused total of 1 unit PRBc preop and 3 units post op for acute blood loss anemia. Pt eval appreciated .Will transfer patient to TCU for physical therapy and IV antibiotics. 1. Trauma and Hematoma of Left Knee (Post Revision of TKR) s/p revision with patellar tendon repair of left knee 01/03/2017 received 1 unit of PRBC prior to surgery and another3 units post surgery (was transfused 3 units at [facility] ) Cultures from the knee positive for VRE and gram negative ki ID consult appreciated Continue Zyvox and Maxipime Ortho following closely No anticoagulation for now due to anemia 2. HTN (hypertension) BP stable continue Metoprolol and Hyzaar 3. Acute blood loss anemia s/p total 4 unit OPRBC transfusion Repeat CBC continue ferrous sulfate 4. BPH (benign prostatic hyperplasia) Chronic cont Flomax 5. Infected Left Knee wound culture grew Vancomycin Resistant Enterococcus s and also growing gram negative rods ID consulted continue Zyvox and Maxipime as per ID 6. DVT Prophylaxis venodyne boots while in bed Discharge Exam - Head Exam Head Exam: ATRAUMATIC, NORMOCEPHALIC - Eye Exam Eye Exam: EOMI, Normal appearance, PERRL Pupil Exam: NORMAL ACCOMODATION - ENT Exam ENT Exam: Mucous Membranes Moist, Normal Exam - Neck Exam Neck exam: Full Rom, Normal Inspection - Respiratory Exam Respiratory Exam: Clear to PA & Lateral, NORMAL BREATHING PATTERN. absent: Rales, Rhonchi, Wheezes - Cardiovascular Exam Cardiovascular Exam: REGULAR RHYTHM, RRR, +S1, +S2. absent: JVD - GI/Abdominal Exam GI & Abdominal Exam: Normal Bowel Sounds, Soft. absent: Distended, Guarding, Rebound, Tenderness - Rectal Exam Rectal Exam: Deferred - Extremities Exam Additional comments: Left knee dressing in place Hemovac in place with bloody output - Back Exam Back exam: NORMAL INSPECTION - Neurological Exam Neurological exam: Alert, CN II-XII Intact, Oriented x3, Reflexes Normal - Psychiatric Exam Psychiatric exam: Normal Affect, Normal Mood - Skin Skin Exam: Dry, Intact, Normal Color, Warm Discharge Plan - Discharge Medications Prescriptions: Cefepime 1gm in NS 100ml [Maxipime 1gm] 1 gm IVPB Q12 #30 bag Linezolid 600 mg in D5W 300 ml [Zyvox 600mg/300ml D5W] 600 mg IVPB Q12 #1 bag - Follow Up Plan Condition: GOOD Disposition: TRANSF TO SNF Patient education suggested?: Yes Additional Instructions: d/c to TCU after blood transfusion Referrals: Jose Elias Chan III, MD [Primary Care Provider] -
[2017-01-05] MEDS: Linezolid 600 mg in D5W 300 ml 600 MG/300 ML BAG IVPB SCH ×3 (10:16→20:42)
[2017-01-05] MEDS: HCTZ/Losartan 12.5/50 Tab PO SCH (10:17)
--- NOTE | 2017-01-05 10:49 | CP.PCM.PN ---
Subjective - Date & Time of Evaluation Date of Evaluation: 01/05/17 Time of Evaluation: 09:00 - Subjective Subjective: NO CHEST PAIN OR SOB ONLY COMPLAINS OF LEFT KNEE PAIN Objective - Vital Signs/Intake and Output Vital Signs (last 24 hours): Temp Pulse Resp BP Pulse Ox 98.5 F 86 18 108/69 96 01/05/17 08:23 01/05/17 10:15 01/05/17 08:23 01/05/17 10:15 01/05/17 08:23 Intake and Output: 01/05/17 01/05/17 06:59 18:59 Output Total 70 Balance -70 - Medications Medications: Current Medications Acetaminophen (Tylenol 325mg Tab) 650 mg PO Q6 PRN PRN Reason: Pain, Mild (1-3) Acetaminophen (Tylenol 325mg Tab) 650 mg PO Q6 PRN PRN Reason: Fever >100.4 F Allopurinol (Zyloprim) 100 mg PO DAILY [facility] Last Admin: 01/05/17 10:16 Dose: 100 mg Atorvastatin Calcium (Lipitor) 10 mg PO HS [facility] Last Admin: 01/04/17 21:11 Dose: 10 mg Docusate Sodium (Colace) 100 mg PO BID [facility] Last Admin: 01/05/17 10:14 Dose: 100 mg Ferrous Sulfate (Feosol) 325 mg PO TID [facility] Last Admin: 01/05/17 10:15 Dose: 325 mg HCTZ/Losartan Potassium (Hyzaar 12.5 Mg-50 Mg) 2 tab PO DAILY [facility] Last Admin: 01/05/17 10:17 Dose: 2 tab Linezolid (Zyvox 600mg/300ml D5w) 600 mg in 300 mls @ 300 mls/hr IVPB Q12 [facility] Last Admin: 01/05/17 10:16 Dose: 300 mls/hr Lactated Ringer's (Lactated Ringer's) 1,000 mls @ 50 mls/hr IV .Q20H [facility] Last Admin: 01/05/17 06:03 Dose: 50 mls/hr Cefepime HCl 1 gm/ Sodium (Chloride) 100 mls @ 100 mls/hr IVPB Q12 [facility] Metoprolol Tartrate (Lopressor) 50 mg PO Q12 [facility] Last Admin: 01/05/17 10:15 Dose: 50 mg Oxycodone/Acetaminophen (Percocet 5/325 Mg Tab) 2 tab PO Q4 PRN PRN Reason: Pain, severe (8-10) Stop: 01/08/17 02:36 Last Admin: 01/05/17 10:12 Dose: 2 tab Oxycodone/Acetaminophen (Percocet 5/325 Mg Tab) 1 tab PO Q4 PRN PRN Reason: Pain, moderate (4-7) Stop: 01/08/17 02:37 Last Admin: 01/05/17 06:15 Dose: 1 tab Sennosides (Senokot Tab) 8.6 mg PO BID [facility] Last Admin: 01/05/17 10:17 Dose: 8.6 mg Tamsulosin HCl (Flomax) 0.4 mg PO DAILY [facility] Last Admin: 01/05/17 10:16 Dose: 0.4 mg - Labs Labs: 01/05/17 06:15 01/03/17 17:31 PT 11.7 Seconds (9.8-13.1) 12/30/16 05:20 INR 1.0 (0.9-1.2) 12/30/16 05:20 APTT 26.9 Seconds (25.6-37.1) 12/30/16 05:20 - Respiratory Exam Respiratory Exam: Clear to Ausculation Bilateral - Cardiovascular Exam Cardiovascular Exam: REGULAR RHYTHM, +S1, +S2 - Additional Findings Additional findings: EKG NSR H/H 7.9/23.6 Assessment and Plan - Assessment and Plan (Free Text) Assessment: S/P TRAUMA WITH REPEAT LEFT KNEE SURGERY AND PATELLA LIGAMENT REPAIR HYPERTENSION HYPERLIPIDEMIA MILD CAD POST-OP ANEMIA Plan: THE PATIENT WILL RECEIVE A BLOOD TRANSFUSION AND THEN BE TRANSFERRED TO TCU FOR PHYSICAL THERAPY CONTINUE ANTIBIOTICS, HYZAAR, METOPROLOL, ATORVASTATIN AND FEOSOL
[2017-01-05] MEDS: Cefepime 1 GM in Sodium Chloride 0.9% 100 ML IVPB SCH ×2 (12:40→20:40)
[2017-01-05 16:15] VITALS: RESP 20
[2017-01-05 21:57] LABS: HEMOGLOBIN 9.2 g/dL (12.0-18.0); MEAN CELL VOLUME 86.5 fl (80.0-94.0); MEAN CORPUSCULAR HEMOGLOBIN 28.5 pg (27.0-31.0); RBC 3.21 Mil/uL (4.40-5.90); RED CELL DISTRIBUTION WIDTH 15.4 % (11.5-14.5); WHITE BLOOD COUNT 7.5 K/uL (4.8-10.8)
[2017-01-05 23:50] VITALS: BP 115/65; PULSE 79; TEMP 99.5; O2SAT 95
--- NOTE | 2017-01-14 08:55 | OP ---
Procedure Date: 01/03/17 Preoperative diagnosis: 1)Wound dehiscence 2)Patellar ligament avulsion status post successful complex revision TXR with allograft Postoperative Diagnosis: 1)Wound dehiscence 2)Patellar ligament avulsion status post successful complex revision TXR with allograft Procedures: Primary repair of total ligament, left knee Primary repair of quadriceps tendon Lateral patellar release Anterior and posterior synovectomy Surgeon: Dustin, second mailroom assistant, Hector Abdul. General and regional anesthesia. Dr. Rickey Putnam and Dr Keenan Blood loss: approximately 380 cc's No complications for Hemovac drain. Operative indication: Nicole Rosenbaum is a patient who is totally noncompliant after a successful complex revision total knee replacement arthroplasty with allograft. Patient presents with a wound to dehiscence. Patient presented to [facility], was treated with irrigation and debridement, and referred back to my care at [facility]. Pros, cons, risks, and benefits of surgery were discussed. The concept that because of the dehiscence possible secondary or tertiary surgeries were discussed, the concept that because of the torn ligament avulsion, restricted range of motion is a guarantee. The possibility of later quadriceps arthroplasty is discussed. The possibility of later secondary, tertiary, or quaternary procedures are discussed. The possibility of mechanical failure, infection, secondary, and tertiary surgeries discussed. Operative procedure: After having obtained informed consent in the above fashioned, after the satisfactory induction of the general and regional anesthesia by Dr. Putnam, after having identified site and side procedure in a critical pause/timeout, the left lower extremity is prepped and pre-draped in usual fashion for complex knee surgery. The tourniquet had been applied but is not yet inflated. After applying a 6 inch esmarch bandage, the tourniquet which had been applied is inflated to 250 mmHg. This having been accomplished, the initial incision is extended 2 finger breadths distal, 2 finger breadths proximal. The skin incision is dragged down to the skin, subcutaneous tissue. Medial arthrotomy is accomplished. There is found to be a rupture of the quadriceps tendon to the mid aspect of the patella. This is combined with the patellar ligament avulsion and the wound which had the dehiscence. Initial closure of the wound has been accomplished at the [facility] and a wound vac has been applied. It is very tenuous at best. This having been accomplished, the incision is extended 2 finger breadths distal, 2 finger breadths proximal. The foreign bodies are removed, the sutures are removed, and the patellar ligament rupture is elevated. Complete lateral patellar inaccurately is accomplished and mobilization of the quadriceps mechanism is accomplished to obtain length for the patellar ligament repair. This having been accomplished, the wound is thoroughly irrigated and using the bur, the osteoplasty of the proximal tibia is accomplished. Drill holes are placed in the tibia to accept major needles through the attachment of the patellar ligament after having been treated with a gathering suture. The scar tissue from the quadriceps expansion is removed using a combination of a large bowed curette and a rongeur. This having been completed, the patellar ligament having been carefully debrided, and the quadriceps rupture having been debrided, attention was turned to the proximal tibia. Using the bur, the scar tissue was removed from the proximal tibia to allow a bed for the healing of the torn ligament. Portion of patellar ligament especially laterally, stays intact and distally. This having been accomplished, with the knee in extension, the suture is accomplished from just one of the patella exiting knee pull of the rupture. This having been accomplished, attached to two eduardo needles in the drill hole of the proximal tibis, taking great care to make it deep enough so it not to cause fraction and to respect prior allograft, the patella ligament is secured. At this point in time, further repair of the patellar ligament is accomplished with the suture anchors. This can be done with 2 attached sutures or a combination of 4 anchors is employed distally and medially, this offers excellent fixation of the patellar ligament. Wounds were irrigated, at this point in time the lateral aspect of 5OR sutures in a modified hdez mattress bed suture are used as gathering sutures for repair. The repair is said to be excellent stability of the knee flexion is accomplished. Although again, having been noted this, lateral patellar is inaccurately accomplished, as well as quadriceps mobilization is accomplished, but knee motion is obviously going to be restricted because of patellar tendon contraction at this point. The wound is thoroughly irrigated, primary repair of the quadriceps tendon is accomplished with 5OR to aspect of the mid aspect of the patella and a further repair is accomplished with an anchor immediately. The patellar ligament having been repaired, the quadriceps tendon having been repaired, the wound is thoroughly irrigated. Lateral patellar inaccurately is accomplished, and anterior, posterior synovectomy is accomplished using the electrocautery. The wound is thoroughly irrigated. Closure is done with Vicryl. 2-0 Nylon and bryon over an 8 inch section. The concept that the patient may require later wound vac application has been discussed with the patient. Compression dressing and immbolization has been applied. Post-op x-rays were performed. Jose Elias Chan MD
== END 2017-01-06 | DRG 488 ==
LOC: H.MEDSURG1 22:36 → H.TEL 01-03 18:35
PROVIDERS: ADMIT Internal Medicine; ATTEND Internal Medicine
PROC: 0MQP0ZZ Repair Left Knee Bursa and Ligament, Open Approach (ICD-10-PCS; 2017-01-03)
PROC: 0LQR0ZZ Repair Left Knee Tendon, Open Approach (ICD-10-PCS; 2017-01-03)
PROC: 0SND0ZZ Release Left Knee Joint, Open Approach (ICD-10-PCS; 2017-01-03)
PROC: 30233N1 Transfusion of Nonautologous Red Blood Cells into Peripheral Vein, Percutaneous Approach (ICD-10-PCS; principal; 2017-01-03 13:45)
DX: S76.112A Strain of left quadriceps muscle, fascia and tendon, initial encounter (principal); T81.31XA Disruption of external operation (surgical) wound, not elsewhere classified, initial encounter; N39.0 Urinary tract infection, site not specified; D62 Acute posthemorrhagic anemia; S80.02XA Contusion of left knee, initial encounter; N18.3 Chronic kidney disease, stage 3 (moderate); V00.811A Fall from moving wheelchair (powered), initial encounter; Y93.9 Activity, unspecified; Y92.9 Unspecified place or not applicable; G47.33 Obstructive sleep apnea (adult) (pediatric); E78.5 Hyperlipidemia, unspecified; I12.9 Hypertensive chronic kidney disease with stage 1 through stage 4 chronic kidney disease, or unspecified chronic kidney disease; M17.0 Bilateral primary osteoarthritis of knee; N40.0 Benign prostatic hyperplasia without lower urinary tract symptoms; I25.10 Atherosclerotic heart disease of native coronary artery without angina pectoris; Z98.61 Coronary angioplasty status; Z96.652 Presence of left artificial knee joint; Z87.891 Personal history of nicotine dependence; S89.82XA Other specified injuries of left lower leg, initial encounter

== ENCOUNTER 2017-01-05 13:34 | Inpatient (IN) | payer MEDICARE ==
[2017-01-06 00:28] VITALS: BMI 35.1
[2017-01-06] MEDS ORDERED: Oxycodone/Acetaminophen 5/325 mg Tab PO PRN (01:32)
[2017-01-06 06:26] LABS: BASO % 0.5 % (0.0-2.0); EOS # 0.4 K/uL (0.0-0.7); EOS % 5.5 % (0.0-4.0); LYMPH # 1.3 K/uL (1.0-4.3); LYMPH % 19.3 % (20.0-40.0); MEAN CELL VOLUME 86.9 fl (80.0-94.0); MEAN CORPUSCULAR HEMOGLOBIN 28.1 pg (27.0-31.0); MEAN CORPUSCULAR HGB CONC 32.3 g/dL (33.0-37.0); MEAN PLATELET VOLUME 7.9 fl (7.2-11.7); MONO # 0.9 K/uL (0.0-0.8); MONO % 12.5 % (0.0-10.0); NEUT # 4.2 K/uL (1.8-7.0); NEUT % 62.2 % (50.0-75.0); RBC 3.21 Mil/uL (4.40-5.90); RED CELL DISTRIBUTION WIDTH 15.6 % (11.5-14.5); WHITE BLOOD COUNT 6.8 K/uL (4.8-10.8)
[2017-01-06 06:58] LABS: CALCIUM 8.4 mg/dL (8.4-10.2)
[2017-01-06] MEDS: Cefepime 1 GM in Sodium Chloride 0.9% 100 ML IVPB SCH ×2 (08:17→21:51)
[2017-01-06] MEDS: Oxycodone/Acetaminophen 5/325 mg Tab PO PRN ×2 (08:19→21:52)
[2017-01-06] MEDS: HCTZ/Losartan 12.5/50 Tab PO SCH (08:20)
[2017-01-06] MEDS ORDERED: Patient's Own Med (Cefepime 1gm In Ns 100ml [Maxipime 1gm] 1 GM) IVPB SCH (09:00)
[2017-01-06] MEDS ORDERED: Patient's Own Med (Linezolid 600 Mg In D5w 300 Ml [Zyvox 600mg/300ml D5w] 600 MG) IVPB SCH (09:00)
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
[2017-01-06] MEDS: Linezolid 600 mg in D5W 300 ml 600 MG/300 ML BAG IVPB SCH ×2 (12:32→23:47)
--- NOTE | 2017-01-06 14:18 | CP.PCM.HP ---
History of Present Illness - History of Present Illness History of Present Illness: 76 yo male with history of OA, LEONARDO, HTN, HLD, Renal Insufficiency and BPH had revision of left TKR on 12/13/2016 and was discharged from TCU on 12/24/2016. The next day patient fell from his wheelchair after hitting a bump in the street injuring his left knee and causing the wound to open. He had large amount of bleeding and was admitted at [facility] where he received 3 units of PRBC. Wound Vac and Hemovac were placed. He was later transferred to [facility] for further management since his orthopedist works here. Dr Blake, plastic surgeon, was consulted and he recommended patellar ligament repair and primary wound closure. Cultures from left knee were obtained during surgery and grew VRE (Vancomycin resistant eneterococci) and gram negative rods. ID was consulted and Zyvox and Maxipime were recommended. Patient later was transferred to TCU for continuation of IV antibiotics and PT. Present on Admission - Present on Admission Any Indicators Present on Admission: No History of DVT/PE: No History of Uncontrolled Diabetes: No Urinary Catheter: No Decubitus Ulcer Present: No Review of Systems - Review of Systems All systems: reviewed and no additional remarkable complaints except (aside from those mentioned above, 12 point system review were negative by me) Past Patient History - Tetanus Immunizations Tetanus Immunization: Unknown - Past Medical History & Family History Past Medical History?: Yes Past Family History: Reviewed and not pertinent - Past Social History Smoking Status: Former Smoker Alcohol: None Drugs: Denies Home Situation {Lives}: With Family - CARDIAC Hx Cardiac Disorders: Yes Hx Hypercholesterolemia: Yes Hx Hypertension: Yes - PULMONARY Hx Sleep Apnea: Yes - NEUROLOGICAL Hx Neurological Disorder: No - HEENT Hx HEENT Problems: Yes Other/Comment: wears glasses - RENAL Hx Chronic Kidney Disease: Yes Other/Comment: renal insufficiency - ENDOCRINE/METABOLIC Hx Endocrine Disorders: No - HEMATOLOGICAL/ONCOLOGICAL Hx Anemia: Yes Hx Blood Transfusions: Yes - INTEGUMENTARY Hx Dermatological Problems: No - MUSCULOSKELETAL/RHEUMATOLOGICAL Hx Arthritis: Yes Hx Falls: Yes - GASTROINTESTINAL Hx Gastrointestinal Disorders: No - GENITOURINARY/GYNECOLOGICAL Hx Genitourinary Disorders: Yes Hx Prostate Problems: Yes - PSYCHIATRIC Hx Substance Use: No - SURGICAL HISTORY Hx Surgeries: Yes Hx Joint Replacement: Yes (TOTAL LEFT KNEE REPLACEMENT X 2) Other/Comment: LASER PROSTATE SX. 12/13/16 s/p left tkr revision - ANESTHESIA Hx Anesthesia: Yes Hx Anesthesia Reactions: No Hx Malignant Hyperthermia: No Meds Allergies/Adverse Reactions: Allergies Allergy/AdvReac Type Severity Reaction Status Date / Time No Known Allergies Allergy Verified 12/18/16 00:41 Physical Exam - Constitutional Appears: No Acute Distress - Head Exam Head Exam: ATRAUMATIC - Eye Exam Eye Exam: absent: Scleral icterus - ENT Exam ENT Exam: Mucous Membranes Moist - Neck Exam Neck exam: Negative for: Meningismus - Respiratory Exam Respiratory Exam: absent: Rhonchi, Wheezes, Respiratory Distress - Cardiovascular Exam Cardiovascular Exam: REGULAR RHYTHM, +S1, +S2 - GI/Abdominal Exam GI & Abdominal Exam: Soft. absent: Tenderness - Rectal Exam Rectal Exam: Deferred - Extremities Exam Extremities exam: Negative for: full ROM (left LE with dressing) - Neurological Exam Neurological exam: Alert, Oriented x3 - Psychiatric Exam Psychiatric exam: Normal Affect - Skin Skin Exam: Dry, Intact Results - Vital Signs Recent Vital Signs: Last Vital Signs Temp 100.4 F H 01/06/17 09:01 Pulse 88 01/06/17 09:01 Resp 20 01/06/17 09:01 BP 144/71 01/06/17 09:01 Pulse Ox 96 01/06/17 09:01 - Labs Result Diagrams: 01/06/17 06:15 01/06/17 06:15 Labs: Laboratory Results - last 24 hr 01/06/17 01/06/17 06:15 06:15 WBC 6.8 RBC 3.21 L Hgb 9.0 L Hct 27.9 L MCV 86.9 MCH 28.1 MCHC 32.3 L RDW 15.6 H Plt Count 142 MPV 7.9 Neut % (Auto) 62.2 Lymph % (Auto) 19.3 L [place] % (Auto) 12.5 H Eos % (Auto) 5.5 H Baso % (Auto) 0.5 Neut # 4.2 Lymph # 1.3 [place] # 0.9 H Eos # 0.4 Baso # 0.0 Sodium 132 Potassium 4.0 Chloride 101 Carbon Dioxide 26 Anion Gap 10 BUN 27 H Creatinine 1.8 H Est GFR ( Amer) 44 Est GFR (Non-Af Amer) 37 Random Glucose 98 Calcium 8.4 Assessment & Plan - Assessment and Plan (Free Text) Assessment: 76 yo male with history of OA, LEONARDO, HTN, HLD, Renal Insufficiency and BPH had revision of left TKR on 12/13/2016 and was discharged from TCU on 12/24/2016. The next day patient fell from his wheelchair after hitting a bump in the street injuring his left knee and causing the wound to open. He had large amount of bleeding and was admitted at [facility] where he received 3 units of PRBC. Wound Vac and Hemovac were placed. He was later transferred to [facility] for further management since his orthopedist works here. Dr Blake, plastic surgeon, was consulted and he recommended patellar ligament repair and primary wound closure. Cultures from left knee were obtained during surgery and grew VRE (Vancomycin resistant eneterococci) and Pseudomonas. ID was consulted and Zyvox and Maxipime were recommended. Patient later was transferred to TCU for continuation of IV antibiotics and PT. 1. Trauma and Hematoma of Left Knee (Post Revision of TKR) s/p revision with patellar tendon repair of left knee 01/03/2017 received 1 unit of PRBC prior to surgery and another 3 units post surgery (was transfused 3 units at [facility] ) Cultures from the knee positive for VRE and gram negative deirdre ID consult appreciated Continue Zyvox and Maxipime Ortho following closely No anticoagulation for now due to anemia JONNA drain removed earlier today 2. HTN (hypertension) BP stable continue Metoprolol and Hyzaar 3. Acute blood loss anemia received 4 units of PRBC Hgb: 9.0 continue ferrous sulfate 4. BPH (benign prostatic hyperplasia) continue Flomax 5. Infected Left Knee wound culture grew Vancomycin Resistant Enterococcus and Pseudomonas Dr Quintero, ID on consult continue Zyvox and Maxipime as per ID 6. DVT Prophylaxis venodyne boots while in bed
[2017-01-07] MEDS: HCTZ/Losartan 12.5/50 Tab PO SCH (09:32)
[2017-01-07] MEDS: Linezolid 600 mg in D5W 300 ml 600 MG/300 ML BAG IVPB SCH ×2 (09:33→17:33)
[2017-01-07] MEDS: Cefepime 1 GM in Sodium Chloride 0.9% 100 ML IVPB SCH ×2 (09:35→22:40)
[2017-01-07] MEDS: Oxycodone/Acetaminophen 5/325 mg Tab PO PRN ×2 (11:35→17:39)
--- NOTE | 2017-01-07 13:18 | CP.PCM.PN ---
Subjective - Date & Time of Evaluation Date of Evaluation: 01/07/17 Time of Evaluation: 11:00 - Subjective Subjective: NO COMPLAINTS OF CHEST PAIN OR SOB Objective - Vital Signs/Intake and Output Vital Signs (last 24 hours): Temp Pulse Resp BP Pulse Ox 98.3 F 83 22 124/70 96 01/07/17 08:35 01/07/17 09:31 01/07/17 08:35 01/07/17 09:31 01/07/17 08:35 - Medications Medications: Current Medications Acetaminophen (Tylenol 325mg Tab) 650 mg PO Q6 PRN PRN Reason: Pain, Mild (1-3) Acetaminophen (Tylenol 325mg Tab) 650 mg PO Q6 PRN PRN Reason: Fever >100.4 F Allopurinol (Zyloprim) 100 mg PO DAILY [facility] Last Admin: 01/07/17 09:31 Dose: 100 mg Atorvastatin Calcium (Lipitor) 10 mg PO HS [facility] Last Admin: 01/06/17 21:50 Dose: 10 mg Docusate Sodium (Colace) 100 mg PO BID [facility] Last Admin: 01/07/17 09:31 Dose: 100 mg Ferrous Sulfate (Feosol) 325 mg PO TID [facility] Last Admin: 01/07/17 12:34 Dose: 325 mg HCTZ/Losartan Potassium (Hyzaar 12.5 Mg-50 Mg) 2 tab PO DAILY [facility] Last Admin: 01/07/17 09:32 Dose: 2 tab Cefepime HCl 1 gm/ Sodium (Chloride) 100 mls @ 100 mls/hr IVPB Q12 [facility] Last Admin: 01/07/17 09:35 Dose: 100 mls/hr Linezolid (Zyvox 600mg/300ml D5w) 600 mg in 300 mls @ 300 mls/hr IVPB Q12@0500, 1700 [facility] Metoprolol Tartrate (Lopressor) 50 mg PO Q12 [facility] Last Admin: 01/07/17 09:31 Dose: 50 mg Oxycodone/Acetaminophen (Percocet 5/325 Mg Tab) 2 tab PO Q4 PRN PRN Reason: Pain, severe (8-10) Stop: 01/09/17 01:33 Last Admin: 01/07/17 11:35 Dose: 2 tab Oxycodone/Acetaminophen (Percocet 5/325 Mg Tab) 1 tab PO Q4 PRN PRN Reason: Pain, moderate (4-7) Stop: 01/09/17 01:33 Sennosides (Senokot Tab) 8.6 mg PO BID [facility] Last Admin: 01/07/17 09:31 Dose: 8.6 mg Tamsulosin HCl (Flomax) 0.4 mg PO DAILY [facility] Last Admin: 01/07/17 09:31 Dose: 0.4 mg - Labs Labs: 01/06/17 06:15 01/06/17 06:15 - Respiratory Exam Respiratory Exam: Clear to Ausculation Bilateral - Cardiovascular Exam Cardiovascular Exam: REGULAR RHYTHM, +S1, +S2 Assessment and Plan - Assessment and Plan (Free Text) Assessment: S/P LEFT KNEE REVISION AFTER TRAUMA CAD-MILD HYPERTENSION HYPERLIPIDEMIA Plan: CONTINUE HYZAAR, METOPROLOL, ATORVASTATIN, ANTIBIOTICS, FEOSOL
--- NOTE | 2017-01-07 15:26 | PCM.OP ---
Operative Report - Operative Report Date of Surgery/Procedure: 01/03/17 Time of Surgery/Procedure: 12:15 (time in room 11Am/anesthesia indcution time 11AM) Surgeon: Dr. Chan Transportation Assistant: Hector Abdul Anesthesia/Sedation: Dr. Rickey Putnam and Dr Keenan Pre-Operative Diagnosis: 1)Wound dehiscence. 2)Patellar ligament avulsion status post successful complex revision TXR with allograft Post-Operative Diagnosis: 1)Wound dehiscence. 2)Patellar ligament avulsion status post successful complex revision TXR with allograft Indication for Surgery: Nicole Rosenbaum is a patient who is totally noncompliant after a successful complex revision total knee replacement arthroplasty with allograft. Patient presents with a wound to dehiscence. Patient presented to [facility], was treated with irrigation and debridement, and referred back to my care at [facility]. Pros, cons, risks, and benefits of surgery were discussed. The concept that because of the dehiscence possible secondary or tertiary surgeries were discussed, the concept that because of the torn ligament avulsion, restricted range of motion is a guarantee. The possibility of later quadriceps arthroplasty is discussed. The possibility of later secondary, tertiary, or quaternary procedures are discussed. The possibility of mechanical failure, infection, secondary, and tertiary surgeries discussed. Operative Findings: There is found to be a rupture of the quadriceps tendon to the mid aspect of the patella. This is combined with the patellar ligament avulsion and the wound which had the dehiscence. Initial closure of the wound has been accomplished at the [facility] and a wound vac has been applied. It is very tenuous at best. Procedure/Operation Description: After having obtained informed consent in the above fashioned, after the satisfactory induction of the general and regional anesthesia by Dr. Putnam, after having identified site and side procedure in a critical pause/timeout, the left lower extremity is prepped and pre-draped in usual fashion for complex knee surgery. The tourniquet had been applied but is not yet inflated. After applying a 6 inch esmarch bandage, the tourniquet which had been applied is inflated to 250 mmHg. This having been accomplished, the initial incision is extended 2 finger breadths distal, 2 finger breadths proximal. The skin incision is dragged down to the skin, subcutaneous tissue. Medial arthrotomy is accomplished. This having been accomplished, the incision is extended 2 finger breadths distal, 2 finger breadths proximal. The foreign bodies are removed, the sutures are removed, and the patellar ligament rupture is elevated. Complete lateral patellar inaccurately is accomplished and mobilization of the quadriceps mechanism is accomplished to obtain length for the patellar ligament repair. This having been accomplished, the wound is thoroughly irrigated and using the bur, the osteoplasty of the proximal tibia is accomplished. Drill holes are placed in the tibia to accept major needles through the attachment of the patellar ligament after having been treated with a gathering suture. The scar tissue from the quadriceps expansion is removed using a combination of a large bowed curette and a rongeur. This having been completed, the patellar ligament having been carefully debrided, and the quadriceps rupture having been debrided, attention was turned to the proximal tibia. Using the bur, the scar tissue was removed from the proximal tibia to allow a bed for the healing of the torn ligament. Portion of patellar ligament especially laterally, stays intact and distally. This having been accomplished, with the knee in extension, the suture is accomplished from just one of the patella exiting knee pull of the rupture. This having been accomplished, attached to two eduardo needles in the drill hole of the proximal tibis, taking great care to make it deep enough so it not to cause fraction and to respect prior allograft, the patella ligament is secured. At this point in time, further repair of the patellar ligament is accomplished with the suture anchors. This can be done with 2 attached sutures or a combination of 4 anchors is employed distally and medially, this offers excellent fixation of the patellar ligament. Wounds were irrigated, at this point in time the lateral aspect of 5OR sutures in a modified hdez mattress bed suture are used as gathering sutures for repair. The repair is said to be excellent stability of the knee flexion is accomplished. Although again, having been noted this, lateral patellar is inaccurately accomplished, as well as quadriceps mobilization is accomplished, but knee motion is obviously going to be restricted because of patellar tendon contraction at this point. The wound is thoroughly irrigated, primary repair of the quadriceps tendon is accomplished with 5OR to aspect of the mid aspect of the patella and a further repair is accomplished with an anchor immediately. The patellar ligament having been repaired, the quadriceps tendon having been repaired, the wound is thoroughly irrigated. Lateral patellar inaccurately is accomplished, and anterior, posterior synovectomy is accomplished using the electrocautery. The wound is thoroughly irrigated. Closure is done with Vicryl. 2-0 Nylon and bryon over an 8 inch section. The concept that the patient may require later wound vac application has been discussed with the patient. Compression dressing and immbolization has been applied. Post-op x-rays were performed. Estimated Blood Loss: 380 cc's Blood Replaced: 0 Sponge/Instrument Count: correct Drains: 0 Complications: No complications for Hemovac drain. Specimen: tendon/synovium skin/subcutaneous tissue Discharge & Condition: Quadriceps mobilization is accomplished, but knee motion to be restricted because of patellar tendon contraction at this point.
[2017-01-08] MEDS: Linezolid 600 mg in D5W 300 ml 600 MG/300 ML BAG IVPB SCH ×2 (04:48→17:13)
[2017-01-08] MEDS: Cefepime 1 GM in Sodium Chloride 0.9% 100 ML IVPB SCH ×2 (08:34→20:55)
[2017-01-08] MEDS: Oxycodone/Acetaminophen 5/325 mg Tab PO PRN (08:39)
[2017-01-08] MEDS: HCTZ/Losartan 12.5/50 Tab PO SCH (08:41)
[2017-01-08 11:57] VITALS: RESP 20
--- NOTE | 2017-01-08 14:30 | CP.PCM.PN ---
Subjective - Date & Time of Evaluation Date of Evaluation: 01/08/17 Time of Evaluation: 13:20 - Subjective Subjective: NO CHEST PAIN OR SOB Objective - Vital Signs/Intake and Output Vital Signs (last 24 hours): Temp Pulse Resp BP Pulse Ox 98.1 F 70 20 135/70 96 01/08/17 08:50 01/08/17 08:50 01/08/17 08:50 01/08/17 08:50 01/08/17 08:50 - Medications Medications: Current Medications Acetaminophen (Tylenol 325mg Tab) 650 mg PO Q6 PRN PRN Reason: Pain, Mild (1-3) Acetaminophen (Tylenol 325mg Tab) 650 mg PO Q6 PRN PRN Reason: Fever >100.4 F Allopurinol (Zyloprim) 100 mg PO DAILY [facility] Last Admin: 01/08/17 08:41 Dose: 100 mg Atorvastatin Calcium (Lipitor) 10 mg PO HS [facility] Last Admin: 01/07/17 22:39 Dose: 10 mg Docusate Sodium (Colace) 100 mg PO BID [facility] Last Admin: 01/08/17 08:41 Dose: 100 mg Ferrous Sulfate (Feosol) 325 mg PO TID [facility] Last Admin: 01/08/17 12:44 Dose: 325 mg HCTZ/Losartan Potassium (Hyzaar 12.5 Mg-50 Mg) 2 tab PO DAILY [facility] Last Admin: 01/08/17 08:41 Dose: 2 tab Cefepime HCl 1 gm/ Sodium (Chloride) 100 mls @ 100 mls/hr IVPB Q12 [facility] Last Admin: 01/08/17 08:34 Dose: 100 mls/hr Linezolid (Zyvox 600mg/300ml D5w) 600 mg in 300 mls @ 300 mls/hr IVPB Q12@0500, 1700 [facility] Last Admin: 01/08/17 04:48 Dose: 300 mls/hr Metoprolol Tartrate (Lopressor) 50 mg PO Q12 [facility] Last Admin: 01/08/17 08:40 Dose: 50 mg Oxycodone/Acetaminophen (Percocet 5/325 Mg Tab) 2 tab PO Q4 PRN PRN Reason: Pain, severe (8-10) Stop: 01/09/17 01:33 Last Admin: 01/08/17 08:39 Dose: 2 tab Oxycodone/Acetaminophen (Percocet 5/325 Mg Tab) 1 tab PO Q4 PRN PRN Reason: Pain, moderate (4-7) Stop: 01/09/17 01:33 Sennosides (Senokot Tab) 8.6 mg PO BID [facility] Last Admin: 01/08/17 08:41 Dose: 8.6 mg Tamsulosin HCl (Flomax) 0.4 mg PO DAILY [facility] Last Admin: 01/08/17 08:41 Dose: 0.4 mg - Labs Labs: 01/06/17 06:15 01/06/17 06:15 - Respiratory Exam Respiratory Exam: Clear to Ausculation Bilateral - Cardiovascular Exam Cardiovascular Exam: REGULAR RHYTHM, +S1, +S2 Assessment and Plan - Assessment and Plan (Free Text) Assessment: TRAUMA WITH LEFT KNEE REVISION HYPERTENSION HYPERLIPIDEMIA Plan: CONTINUE ANTIBIOTICS, HYZAAR, METOPROLOL, ATORVASTATIN AND FEOSOL
[2017-01-08] MEDS ORDERED: Lactulose 10 gm/15 ml Syrup PO PRN (17:34)
[2017-01-09] MEDS: Linezolid 600 mg in D5W 300 ml 600 MG/300 ML BAG IVPB SCH ×2 (05:15→17:36)
[2017-01-09] MEDS ORDERED: Oxycodone/Acetaminophen 5/325 mg Tab PO PRN (06:30)
[2017-01-09] MEDS: HCTZ/Losartan 12.5/50 Tab PO SCH (09:14)
[2017-01-09] MEDS: Cefepime 1 GM in Sodium Chloride 0.9% 100 ML IVPB SCH ×2 (09:22→21:18)
[2017-01-09 19:26] LABS: HEMOGLOBIN 9.5 g/dL (12.0-18.0); MEAN CELL VOLUME 86.4 fl (80.0-94.0); MEAN CORPUSCULAR HEMOGLOBIN 28.5 pg (27.0-31.0); RBC 3.32 Mil/uL (4.40-5.90); RED CELL DISTRIBUTION WIDTH 15.7 % (11.5-14.5); WHITE BLOOD COUNT 6.3 K/uL (4.8-10.8)
[2017-01-09 19:35] LABS: CALCIUM 9.4 mg/dL (8.4-10.2)
[2017-01-09 21:58] VITALS: TEMP 98; O2SAT 95
[2017-01-10] MEDS: Linezolid 600 mg in D5W 300 ml 600 MG/300 ML BAG IVPB SCH (05:06)
[2017-01-10 05:30] VITALS: BP 146/61; PULSE 70
[2017-01-10] MEDS ORDERED: Cefepime 1 GM in Dextrose 5% In Water 100 ML IVPB SCH (09:15)
--- NOTE | 2017-01-10 13:14 | CP.PCM.DIS ---
Provider - Provider Date of Admission: 01/06/17 00:18 Attending physician: Gertrudis Barillas MD Primary care physician: Jose Elias Chan III, MD Time Spent in preparation of Discharge (in minutes): 30 Diagnosis - Discharge Diagnosis (1) Status post revision of total knee replacement Status: Acute Hospital Course - Lab Results Lab Results: Most Recent Lab Values WBC 6.3 K/uL (4.8-10.8) 01/09/17 18:30 RBC 3.32 Mil/uL (4.40-5.90) L 01/09/17 18:30 Hgb 9.5 g/dL (12.0-18.0) L 01/09/17 18:30 Hct 28.7 % (35.0-51.0) L 01/09/17 18:30 MCV 86.4 fl (80.0-94.0) 01/09/17 18:30 MCH 28.5 pg (27.0-31.0) 01/09/17 18:30 MCHC 33.0 g/dL (33.0-37.0) 01/09/17 18:30 RDW 15.7 % (11.5-14.5) H 01/09/17 18:30 Plt Count 191 K/uL (130-400) 01/09/17 18:30 MPV 7.9 fl (7.2-11.7) 01/06/17 06:15 Neut % (Auto) 62.2 % (50.0-75.0) 01/06/17 06:15 Lymph % (Auto) 19.3 % (20.0-40.0) L 01/06/17 06:15 [place] % (Auto) 12.5 % (0.0-10.0) H 01/06/17 06:15 Eos % (Auto) 5.5 % (0.0-4.0) H 01/06/17 06:15 Baso % (Auto) 0.5 % (0.0-2.0) 01/06/17 06:15 Neut # 4.2 K/uL (1.8-7.0) 01/06/17 06:15 Lymph # 1.3 K/uL (1.0-4.3) 01/06/17 06:15 [place] # 0.9 K/uL (0.0-0.8) H 01/06/17 06:15 Eos # 0.4 K/uL (0.0-0.7) 01/06/17 06:15 Baso # 0.0 K/uL (0.0-0.2) 01/06/17 06:15 Sodium 135 mmol/l (132-148) 01/09/17 18:30 Potassium 4.2 MMOL/L (3.6-5.0) 01/09/17 18:30 Chloride 100 mmol/L (98-107) 01/09/17 18:30 Carbon Dioxide 29 mmol/L (22-30) 01/09/17 18:30 Anion Gap 10 (10-20) 01/09/17 18:30 BUN 19 mg/dl (9-20) 01/09/17 18:30 Creatinine 1.4 mg/dL (0.8-1.5) 01/09/17 18:30 Est GFR ( Amer) 59 01/09/17 18:30 Est GFR (Non-Af Amer) 49 01/09/17 18:30 POC Glucose (mg/dL) 117 mg/dL (65-110) H 01/09/17 11:12 Random Glucose 149 mg/dL (75-110) H 01/09/17 18:30 Calcium 9.4 mg/dL (8.4-10.2) 01/09/17 18:30 - Hospital Course Hospital Course: 76 yo male with history of OA, LEONARDO, HTN, HLD, Renal Insufficiency and BPH had revision of left TKR on 12/13/2016 and was discharged from TCU on 12/24/2016. The next day patient fell from his wheelchair after hitting a bump in the street injuring his left knee and causing the wound to open. He had large amount of bleeding and was admitted at [facility] where he received 3 units of PRBC. Wound Vac and Hemovac were placed. He was later transferred to [facility] for further management since his orthopedist works here. Dr Blake, plastic surgeon, was consulted and he recommended patellar ligament repair and primary wound closure. Cultures from left knee were obtained during surgery and grew VRE (Vancomycin resistant eneterococci) and gram negative rods. ID was consulted and Zyvox and Maxipime were recommended. Patient later was transferred to TCU for continuation of IV antibiotics and PT. Patient was taken back to OR for wound dehiscence, patella ligament reconstruction, with wound vac today. 1. Trauma and Hematoma of Left Knee (Post Revision of TKR) s/p revision with patellar tendon repair of left knee 01/03/2017 received 1 unit of PRBC prior to surgery and another 3 units post surgery (was transfused 3 units at [facility] ) Cultures from the knee positive for VRE and gram negative deirdre ID consult appreciated Continue Zyvox and Maxipime Ortho following closely No anticoagulation for now due to anemia JONNA drain removed earlier today Patient was taken back to OR for wound dehiscence, patella ligament reconstruction, with wound vac today. 2. HTN (hypertension) BP stable continue Metoprolol and Hyzaar 3. Acute blood loss anemia received 4 units of PRBC Hgb: 9.0 continue ferrous sulfate 4. BPH (benign prostatic hyperplasia) continue Flomax 5. Infected Left Knee wound culture grew Vancomycin Resistant Enterococcus and Pseudomonas Dr Quintero, ID on consult continue Zyvox and Maxipime as per ID 6. DVT Prophylaxis venodyne boots while in bed Discharge Exam - Head Exam Head Exam: ATRAUMATIC, NORMOCEPHALIC - Eye Exam Eye Exam: EOMI, Normal appearance, PERRL - ENT Exam ENT Exam: Mucous Membranes Moist, Normal Oropharynx - Respiratory Exam Respiratory Exam: Clear to PA & Lateral, NORMAL BREATHING PATTERN - Cardiovascular Exam Cardiovascular Exam: RRR, +S1, +S2 - GI/Abdominal Exam GI & Abdominal Exam: Normal Bowel Sounds, Soft. absent: Organomegaly, Tenderness - Extremities Exam Extremities exam: normal capillary refill, pedal pulses present - Back Exam Back exam: absent: CVA tenderness (L), CVA tenderness (R) - Neurological Exam Neurological exam: Alert, Oriented x3 - Psychiatric Exam Psychiatric exam: Normal Affect, Normal Mood - Skin Skin Exam: Dry, Warm Discharge Plan - Follow Up Plan Condition: GOOD Disposition: Trans to Other Acute Care Hosp Referrals: Jose Elias Chan III, MD [Primary Care Provider] -
--- NOTE | 2017-01-10 13:33 | CP.PCM.PN ---
Subjective - Date & Time of Evaluation Date of Evaluation: 01/10/17 Time of Evaluation: 07:30 - Subjective Subjective: NO CHEST PAIN OR SOB Objective - Vital Signs/Intake and Output Vital Signs (last 24 hours): Temp Pulse Resp BP Pulse Ox 98.0 F 70 20 146/61 95 01/09/17 21:57 01/10/17 05:24 01/09/17 21:57 01/10/17 05:24 01/09/17 21:57 - Medications Medications: Current Medications Acetaminophen (Tylenol 325mg Tab) 650 mg PO Q6 PRN PRN Reason: Pain, Mild (1-3) Acetaminophen (Tylenol 325mg Tab) 650 mg PO Q6 PRN PRN Reason: Fever >100.4 F Allopurinol (Zyloprim) 100 mg PO DAILY [facility] Last Admin: 01/09/17 09:17 Dose: 100 mg Atorvastatin Calcium (Lipitor) 10 mg PO HS [facility] Last Admin: 01/09/17 21:17 Dose: 10 mg Docusate Sodium (Colace) 100 mg PO BID [facility] Last Admin: 01/09/17 17:15 Dose: 100 mg Ferrous Sulfate (Feosol) 325 mg PO TID [facility] Last Admin: 01/09/17 17:13 Dose: 325 mg HCTZ/Losartan Potassium (Hyzaar 12.5 Mg-50 Mg) 2 tab PO DAILY [facility] Last Admin: 01/09/17 09:14 Dose: 2 tab Linezolid (Zyvox 600mg/300ml D5w) 600 mg in 300 mls @ 300 mls/hr IVPB Q12@0500, 1700 [facility] Last Admin: 01/10/17 05:06 Dose: 300 mls/hr Cefepime HCl 1 gm/ Dextrose 100 mls @ 100 mls/hr IVPB Q12 [facility] Lactulose (Enulose) 10 gm PO DAILY PRN PRN Reason: Constipation Last Admin: 01/09/17 09:17 Dose: 10 gm Metoprolol Tartrate (Lopressor) 50 mg PO Q12 [facility] Last Admin: 01/10/17 05:24 Dose: 50 mg Oxycodone/Acetaminophen (Percocet 5/325 Mg Tab) 1 tab PO Q6 PRN PRN Reason: Pain, moderate (4-7) Stop: 01/12/17 06:31 Last Admin: 01/09/17 06:40 Dose: 1 tab Sennosides (Senokot Tab) 8.6 mg PO BID [facility] Last Admin: 01/09/17 17:14 Dose: 8.6 mg Tamsulosin HCl (Flomax) 0.4 mg PO DAILY [facility] Last Admin: 01/09/17 09:13 Dose: 0.4 mg - Labs Labs: 01/09/17 18:30 01/09/17 18:30 - Respiratory Exam Respiratory Exam: Clear to Ausculation Bilateral - Cardiovascular Exam Cardiovascular Exam: REGULAR RHYTHM, +S1, +S2 Assessment and Plan - Assessment and Plan (Free Text) Assessment: HYPERTENSION HYPERLIPIDEMIA MILD CAD TRAUMA AND REVISION OF LEFT KNEE Plan: TO OR TODAY FOR WOUND VAC
== END 2017-01-10 13:30 | disposition short-term general hospital (02) | DRG 560 ==
LOC: H.TCU 01-06 00:18
PROVIDERS: ADMIT Internal Medicine; ATTEND Internal Medicine
PROC: F08Z4ZZ Home Management Treatment (ICD-10-PCS; principal; 2017-01-06)
PROC: F07L0ZZ Range of Motion and Joint Mobility Treatment of Musculoskeletal System - Lower Back / Lower Extremity (ICD-10-PCS; 2017-01-06)
PROC: F07Z9FZ Gait Training/Functional Ambulation Treatment using Assistive, Adaptive, Supportive or Protective Equipment (ICD-10-PCS; 2017-01-06)
PROC: F07L6ZZ Therapeutic Exercise Treatment of Musculoskeletal System - Lower Back / Lower Extremity (ICD-10-PCS; 2017-01-06)
DX: Z47.89 Encounter for other orthopedic aftercare (principal); D62 Acute posthemorrhagic anemia; B96.5 Pseudomonas (aeruginosa) (mallei) (pseudomallei) as the cause of diseases classified elsewhere; I10 Essential (primary) hypertension; E78.5 Hyperlipidemia, unspecified; I25.10 Atherosclerotic heart disease of native coronary artery without angina pectoris; Z96.652 Presence of left artificial knee joint; G47.33 Obstructive sleep apnea (adult) (pediatric); N28.9 Disorder of kidney and ureter, unspecified; N40.0 Benign prostatic hyperplasia without lower urinary tract symptoms; B95.2 Enterococcus as the cause of diseases classified elsewhere; Z16.22 Resistance to vancomycin related antibiotics

== ENCOUNTER 2017-01-10 06:01 | Observation (INO) | payer MEDICARE ==
[2017-01-10] MEDS ORDERED: Lactated Ringer's 1,000 ML IV ONE (07:15)
[2017-01-10] MEDS ORDERED: Propofol 10 mg/ml Inj (20 ML) ONE (07:28)
[2017-01-10] MEDS ORDERED: Midazolam 2 MG/2 ML VIAL ONE (07:28)
[2017-01-10] MEDS ORDERED: Lidocaine 2% Jelly (5 ml) TOP ONE (07:28)
[2017-01-10] MEDS ORDERED: Lidocaine Hydrochloride 5 ML INJ ONE (07:28)
[2017-01-10] MEDS ORDERED: Cefepime (Maxipime) 1 g Inj IVPB ONE (09:40)
[2017-01-10] MEDS ORDERED: ePHEDrine 50 mg/ml Inj ONE (09:56)
[2017-01-10] MEDS ORDERED: Phenylephrine 10 mg/ml Inj ONE (10:00)
[2017-01-10] MEDS ORDERED: Lactated Ringer's 1,000 ML IV SCH (11:20)
--- NOTE | 2017-01-10 14:38 | PCM.SURG1 ---
Surgeon's Initial Post Op Note - Surgeon's Notes Surgeon: Dustin Railway Head Tender: EASTON Reza Type of Anesthesia: General Endo Anesthesia Administered By: Dr Gonsales Pre-Operative Diagnosis: wound dehiscience s/p, patella ligament reconstruction - s/p complex TKR. foreign bodies (multiple) Operative Findings: as above Post-Operative Diagnosis: as above Operation Performed: Incision/drainage- irrigation, debrisemnt L knbee wound. application wound vac. removal foreign bodies (deep). excision skin/ subcutaneous tissue and muscle Specimen/Specimens Removed: foreing bodies (suture). skin, subcutaneous tissue / muscle Estimated Blood Loss: EBL {In ML}: 15 Blood Products Given: N/A Drains Used: Wound Vac Post-Op Condition: Good Date of Surgery/Procedure: 01/10/17 Time of Surgery/Procedure: 10:05 (time in room/anesthesia indcution time 9:20)
[2017-01-10] MEDS ORDERED: Oxycodone/Acetaminophen 5/325 mg Tab PO PRN (14:44)
--- NOTE | 2017-01-10 16:27 | CP.PCM.HP ---
History of Present Illness - History of Present Illness History of Present Illness: 76 yo male with history of OA, LEONARDO, HTN, HLD, Renal Insufficiency and BPH had revision of left TKR on 12/13/2016 and was discharged from TCU on 12/24/2016. The next day patient fell from his wheelchair after hitting a bump in the street injuring his left knee and causing the wound to open. He had large amount of bleeding and was admitted at [facility] where he received 3 units of PRBC. Wound Vac and Hemovac were placed. He was later transferred to [facility] for further management since his orthopedist works here. Dr Blake, plastic surgeon, was consulted and he recommended patellar ligament repair and primary wound closure. Cultures from left knee were obtained during surgery and grew VRE (Vancomycin resistant eneterococci) and Pseudomonas. ID was consulted and Zyvox and Maxipime were recommended. Patient later was transferred to TCU for continuation of IV antibiotics and PT. Patient was taken back to OR for wound dehiscence, patella ligament reconstruction, with wound vac today. For OBS on medsurg before transfer back to TCU. ROS: per HPI, 12 systems reviewed and negative MHx: Osteoarthritis b/l knee, HTN, HLD, CKD, BPH SHx: total 3 knee surgeries for osteoarthritis, cardiac cath, but no stents Allergies: NKDA Medications: Pending Family Hx: HTN Social Hx: Lives with family, no tobacco, no EtOH Temp Pulse Resp BP Pulse Ox 98.2 F 96 H 19 133/72 98 01/10/17 16:28 01/10/17 16:28 01/10/17 16:28 01/10/17 16:28 01/10/17 16:28 GEN: WDWN, alert, cooperative HEENT: NCAT, PERRL, EOMI NECK: supple, no JVD, no lymphadenopathy CARDIAC: +S1S2 RRR LUNG: CTAB No WRR ABD: SOFT NT ND BSX4 NO MASSES NO HSM EXT: +pedal pulses, equal strength DRESSING CDI NEURO: AAOx3 SKIN warm, dry PSYCH normal mood, normal affect LABS REVIEWED 76 yo male with history of OA, LEONARDO, HTN, HLD, Renal Insufficiency and BPH had revision of left TKR on 12/13/2016 and was discharged from TCU on 12/24/2016. The next day patient fell from his wheelchair after hitting a bump in the street injuring his left knee and causing the wound to open. He had large amount of bleeding and was admitted at [facility] where he received 3 units of PRBC. Wound Vac and Hemovac were placed. He was later transferred to [facility] for further management since his orthopedist works here. Dr Blake, plastic surgeon, was consulted and he recommended patellar ligament repair and primary wound closure. Cultures from left knee were obtained during surgery and grew VRE (Vancomycin resistant eneterococci) and Pseudomonas. ID was consulted and Zyvox and Maxipime were recommended. Patient later was transferred to TCU for continuation of IV antibiotics and PT. Patient was taken back to OR for wound dehiscence, patella ligament reconstruction, with wound vac today. For OBS on medsurg before transfer back to TCU. 1. Trauma and Hematoma of Left Knee (Post Revision of TKR) s/p revision with patellar tendon repair of left knee 01/03/2017 S/P PATELLA LIGAMENT RECONSTRUCTOIN WITH WOUND VAC 01/10/17 ,AND OR FOR WOUND DEHISCENCE received 1 unit of PRBC prior to surgery and another 3 units post surgery (was transfused 3 units at [facility] ) Cultures from the knee positive for VRE and gram negative deirdre ID consult appreciated Continue Zyvox and Maxipime Ortho following closely No anticoagulation for now due to anemia 2. HTN (hypertension) BP stable continue Metoprolol and Hyzaar 3. Acute blood loss anemia received 4 units of PRBC Hgb: 9.0 continue ferrous sulfate 4. BPH (benign prostatic hyperplasia) continue Flomax 5. Infected Left Knee wound culture grew Vancomycin Resistant Enterococcus and Pseudomonas Dr Quintero, ID on consult continue Zyvox and Maxipime as per ID 6. DVT Prophylaxis venodyne boots while in bed Present on Admission - Present on Admission Any Indicators Present on Admission: No Past Patient History - Tetanus Immunizations Tetanus Immunization: Unknown - Past Medical History & Family History Past Medical History?: Yes - Past Social History Smoking Status: Former Smoker - CARDIAC Hx Cardiac Disorders: Yes Hx Hypercholesterolemia: Yes Hx Hypertension: Yes - PULMONARY Hx Respiratory Disorders: No Hx Sleep Apnea: Yes - NEUROLOGICAL Hx Neurological Disorder: No - HEENT Hx HEENT Problems: Yes Other/Comment: wears glasses - RENAL Hx Chronic Kidney Disease: Yes Other/Comment: renal insufficiency - ENDOCRINE/METABOLIC Hx Endocrine Disorders: No - HEMATOLOGICAL/ONCOLOGICAL Hx Blood Disorders: No Hx AIDS: No Hx Anemia: Yes Hx Blood Transfusions: Yes Hx Blood Transfusion Reaction: No Hx Human Immunodeficiency Virus (HIV): No - INTEGUMENTARY Hx Dermatological Problems: No - MUSCULOSKELETAL/RHEUMATOLOGICAL Hx Musculoskeletal Disorders: Yes Hx Arthritis: Yes Hx Falls: Yes Hx Osteoarthritis: Yes - GASTROINTESTINAL Hx Gastrointestinal Disorders: No - GENITOURINARY/GYNECOLOGICAL Hx Genitourinary Disorders: Yes Hx Prostate Problems: Yes - PSYCHIATRIC Hx Psychophysiologic Disorder: No Hx Emotional Abuse: No Hx Physical Abuse: No Hx Substance Use: No - SURGICAL HISTORY Hx Surgeries: Yes Hx Joint Replacement: Yes (TOTAL LEFT KNEE REPLACEMENT X 2) Other/Comment: LASER PROSTATE SX. 12/13/16 s/p left tkr revision - ANESTHESIA Hx Anesthesia: Yes Hx Anesthesia Reactions: No Hx Malignant Hyperthermia: No Has any member of the family had a problem w/ anesthesia?: No Meds Allergies/Adverse Reactions: Allergies Allergy/AdvReac Type Severity Reaction Status Date / Time No Known Allergies Allergy Verified 12/18/16 00:41 Results - Vital Signs Recent Vital Signs: Last Vital Signs Temp 98.7 F 01/10/17 15:04 Pulse 94 H 01/10/17 15:04 Resp 20 01/10/17 15:04 BP 138/70 01/10/17 15:04 Pulse Ox 98 01/10/17 15:04
[2017-01-10] MEDS: Oxycodone/Acetaminophen 5/325 mg Tab PO PRN (16:50)
--- NOTE | 2017-01-10 16:59 | RAD ---
PROCEDURE: Left Knee Radiographs. HISTORY: Pain. COMPARISON: 01/03/2017 FINDINGS: BONES: No evidence of hardware failure. Stable position of components of left TKA. JOINTS: Normal. No osteoarthritis. JOINT EFFUSION: None. OTHER FINDINGS: Surgical drains within the soft tissues apparent on the prior studies have been removed. IMPRESSION: Satisfactory postoperative status.
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
[2017-01-10] MEDS: Cefepime 1 GM in Sodium Chloride 0.9% 100 ML IVPB SCH (20:10)
[2017-01-10] MEDS ORDERED: Cefepime 1 GM in Sodium Chloride 0.9% 100 ML IVPB SCH (21:00)
[2017-01-10] MEDS ORDERED: Patient's Own Med (Linezolid 600 Mg In D5w 300 Ml [Zyvox 600mg/300ml D5w] 600 MG) IVPB SCH (21:00)
[2017-01-10] MEDS ORDERED: Linezolid 600 mg in D5W 300 ml 600 MG/300 ML BAG IVPB SCH (21:00)
[2017-01-10] MEDS ORDERED: Patient's Own Med (Cefepime 1gm In Ns 100ml [Maxipime 1gm] 1 GM) IVPB SCH (21:00)
[2017-01-10] MEDS: Linezolid 600 mg in D5W 300 ml 600 MG/300 ML BAG IVPB SCH (21:16)
[2017-01-11] MEDS: Oxycodone/Acetaminophen 5/325 mg Tab PO PRN ×2 (01:38→11:11)
[2017-01-11] MEDS: Cefepime 1 GM in Sodium Chloride 0.9% 100 ML IVPB SCH (08:34)
[2017-01-11] MEDS: Linezolid 600 mg in D5W 300 ml 600 MG/300 ML BAG IVPB SCH (08:36)
[2017-01-11 08:44] LABS: HEMOGLOBIN 9.1 g/dL (12.0-18.0); MEAN CELL VOLUME 86.9 fl (80.0-94.0); MEAN CORPUSCULAR HEMOGLOBIN 27.9 pg (27.0-31.0); MEAN CORPUSCULAR HGB CONC 32.1 g/dL (33.0-37.0); RBC 3.25 Mil/uL (4.40-5.90); RED CELL DISTRIBUTION WIDTH 15.7 % (11.5-14.5)
[2017-01-11] MEDS ORDERED: Patient's Own Med (Losartan/Hydrochlorothiazide [Losartan-Hctz 100-25 Mg Tab] 1 TAB) PO SCH (09:00)
[2017-01-11 09:07] LABS: CALCIUM 9.2 mg/dL (8.4-10.2)
--- NOTE | 2017-01-11 10:40 | CP.PCM.CON ---
History of Present Illness - History of Present Illness History of Present Illness: THE PATIENT IS A 76 YEAR OLD MALE WHO HAD A LEFT TOTAL KNEE REPLACEMENT YEARS AGO AND HAD A REVISION LAST MONTH AND DID WELL IN THE HOSPITAL AND IN SUBACUTE REHAB. HE WENT HOME AND SUSTAINED TRAUMA TO THE LEFT KNEE WITH DEHISCENCE AND LEFT PATELLA LIGAMENT INJURY AND WAS OPERATED ON LAST WEEK AND WENT TO TCU FOR SUBACUTE REHAB. HE WAS OPERATED ON AGAIN YESTERDAY AND I WAS ASKED TO SEE AND FOLLOW HIM. HE ALSO HAS A HISTORY OF HYPERTENSION, HYPERLIPIDEMIA AND MILD CAD. HE IS CHEST PAIN FREE AT THE PRESENT TIME. Past Patient History - Tetanus Immunizations Tetanus Immunization: Unknown - Past Medical History & Family History Past Medical History?: Yes - Past Social History Smoking Status: Former Smoker - CARDIAC Hx Hypertension: Yes - PULMONARY Hx Respiratory Disorders: No Hx Sleep Apnea: Yes - NEUROLOGICAL Hx Neurological Disorder: No - HEENT Hx HEENT Problems: Yes Other/Comment: wears glasses - RENAL Hx Chronic Kidney Disease: Yes Other/Comment: renal insufficiency - ENDOCRINE/METABOLIC Hx Endocrine Disorders: No - HEMATOLOGICAL/ONCOLOGICAL Hx Blood Disorders: No Hx AIDS: No Hx Anemia: Yes Hx Blood Transfusions: Yes Hx Blood Transfusion Reaction: No Hx Human Immunodeficiency Virus (HIV): No - INTEGUMENTARY Hx Dermatological Problems: No - MUSCULOSKELETAL/RHEUMATOLOGICAL Hx Musculoskeletal Disorders: Yes Hx Arthritis: Yes Hx Falls: Yes Hx Osteoarthritis: Yes - GASTROINTESTINAL Hx Gastrointestinal Disorders: No - GENITOURINARY/GYNECOLOGICAL Hx Genitourinary Disorders: Yes Hx Prostate Problems: Yes - PSYCHIATRIC Hx Psychophysiologic Disorder: No Hx Emotional Abuse: No Hx Physical Abuse: No Hx Substance Use: No - SURGICAL HISTORY Hx Surgeries: Yes Hx Joint Replacement: Yes (TOTAL LEFT KNEE REPLACEMENT X 2) Other/Comment: LASER PROSTATE SX. 12/13/16 s/p left tkr revision - ANESTHESIA Hx Anesthesia: Yes Hx Anesthesia Reactions: No Hx Malignant Hyperthermia: No Has any member of the family had a problem w/ anesthesia?: No Meds Home Medications: Home Medication List Medication Instructions Recorded Confirmed Type Losartan [Cozaar] 100 mg PO DAILY tab 01/11/17 Rx Allergies/Adverse Reactions: Allergies Allergy/AdvReac Type Severity Reaction Status Date / Time No Known Allergies Allergy Verified 12/18/16 00:41 - Medications Medications: Current Medications Acetaminophen (Tylenol 325mg Tab) 650 mg PO Q6 PRN PRN Reason: Fever >100.4 F Acetaminophen (Tylenol 325mg Tab) 650 mg PO Q6 PRN PRN Reason: Pain, Mild (1-3) Allopurinol (Zyloprim) 100 mg PO DAILY [facility] Last Admin: 01/11/17 08:32 Dose: 100 mg Atorvastatin Calcium (Lipitor) 10 mg PO HS [facility] Last Admin: 01/10/17 21:15 Dose: 10 mg Docusate Sodium (Colace) 100 mg PO BID [facility] Last Admin: 01/11/17 08:32 Dose: 100 mg Ferrous Sulfate (Feosol) 325 mg PO TID [facility] Last Admin: 01/11/17 08:32 Dose: 325 mg Hydrochlorothiazide (Hydrodiuril) 25 mg PO DAILY [facility] Lactated Ringer's (Lactated Ringer's) 1,000 mls @ 100 mls/hr IV .Q10H [facility] Linezolid (Zyvox 600mg/300ml D5w) 600 mg in 300 mls @ 300 mls/hr IVPB Q12 [facility] Last Admin: 01/11/17 08:36 Dose: 300 mls/hr Cefepime HCl 1 gm/ Sodium (Chloride) 100 mls @ 100 mls/hr IVPB Q12 [facility] Last Admin: 01/11/17 08:34 Dose: 100 mls/hr Losartan Potassium (Cozaar) 100 mg PO DAILY [facility] Last Admin: 01/11/17 08:33 Dose: 100 mg Metoprolol Tartrate (Lopressor) 50 mg PO Q12 [facility] Last Admin: 01/11/17 08:31 Dose: 50 mg Oxycodone/Acetaminophen (Percocet 5/325 Mg Tab) 1 tab PO Q4 PRN PRN Reason: Pain, moderate (4-7) Stop: 01/13/17 14:45 Last Admin: 01/11/17 08:41 Dose: 1 tab Oxycodone/Acetaminophen (Percocet 5/325 Mg Tab) 2 tab PO Q4 PRN PRN Reason: Pain, severe (8-10) Stop: 01/13/17 14:45 Last Admin: 01/11/17 01:38 Dose: 2 tab Sennosides (Senokot Tab) 8.6 mg PO BID [facility] Last Admin: 01/11/17 08:31 Dose: 8.6 mg Tamsulosin HCl (Flomax) 0.4 mg PO DAILY [facility] Last Admin: 01/11/17 08:32 Dose: 0.4 mg Physical Exam - Respiratory Exam Respiratory Exam: Clear to Auscultation Bilateral - Cardiovascular Exam Cardiovascular Exam: REGULAR RHYTHM, +S1, +S2 - Additional Findings Additional findings: H/H 03/24 Results - Vital Signs Recent Vital Signs: Last Vital Signs Temp 98.4 F 01/11/17 08:33 Pulse 77 01/11/17 08:33 Resp 20 01/11/17 08:33 BP 107/68 01/11/17 08:33 Pulse Ox 100 01/11/17 08:33 - Labs Result Diagrams: 01/11/17 08:10 01/11/17 08:10 Labs: Laboratory Results - last 24 hr 01/11/17 01/11/17 08:10 08:10 WBC 6.0 RBC 3.25 L Hgb 9.1 L Hct 28.2 L MCV 86.9 MCH 27.9 MCHC 32.1 L RDW 15.7 H Plt Count 193 Sodium 136 Potassium 4.5 Chloride 103 Carbon Dioxide 28 Anion Gap 9 L BUN 16 Creatinine 1.4 Est GFR ( Amer) 59 Est GFR (Non-Af Amer) 49 Random Glucose 87 Calcium 9.2 Assessment & Plan - Assessment and Plan (Free Text) Assessment: HYPERTENSION HYPERLIPIDEMIA MILD CAD LEFT KNEE CLEANING AND APPLICATION OF WOUND VAC YESTERDAY Plan: CONTINUE ANTIBIOTICS, LOSARTAN, METOPROLOL, ATORVASTATIN
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
[2017-01-11 15:38] VITALS: BP 110/63; PULSE 66; RESP 16; TEMP 98.1; O2SAT 97
== END 2017-01-11 20:57 ==
LOC: H.OPSURG 06:01 → H.MEDSURG1 11:52
PROVIDERS: ADMIT Student in an Organized Health Care Education/Training Program; ATTEND Student in an Organized Health Care Education/Training Program
DX: T81.31XA Disruption of external operation (surgical) wound, not elsewhere classified, initial encounter (principal); W05.0XXA Fall from non-moving wheelchair, initial encounter; T81.4XXS Infection following a procedure, sequela; D64.9 Anemia, unspecified; E78.5 Hyperlipidemia, unspecified; G47.33 Obstructive sleep apnea (adult) (pediatric); I12.9 Hypertensive chronic kidney disease with stage 1 through stage 4 chronic kidney disease, or unspecified chronic kidney disease; I25.10 Atherosclerotic heart disease of native coronary artery without angina pectoris; M19.90 Unspecified osteoarthritis, unspecified site; N18.9 Chronic kidney disease, unspecified; N40.0 Benign prostatic hyperplasia without lower urinary tract symptoms; Z79.899 Other long term (current) drug therapy; Z87.891 Personal history of nicotine dependence; Z96.652 Presence of left artificial knee joint; B95.2 Enterococcus as the cause of diseases classified elsewhere; B96.5 Pseudomonas (aeruginosa) (mallei) (pseudomallei) as the cause of diseases classified elsewhere
CPT/HCPCS: 13160; 20103; 36415; 73560; 80048; 85027; 88304; 97161; 97165; 97530; G0378; G8978; G8979; G8987; G8988; J0692; J2020; J2250; J2270; J2370; J2704; J2765; J3010; J7030; J7120; L1830

== ENCOUNTER 2017-01-11 15:24 | Inpatient (IN) | payer MEDICARE, OTHER ==
[2017-01-11] MEDS ORDERED: Oxycodone/Acetaminophen 5/325 mg Tab PO PRN (20:28)
[2017-01-11] MEDS ORDERED: Patient's Own Med (Linezolid 600 Mg In D5w 300 Ml [Zyvox 600mg/300ml D5w] 600 MG) IVPB SCH (21:00)
[2017-01-11] MEDS ORDERED: Patient's Own Med (Cefepime 1gm In Ns 100ml [Maxipime 1gm] 1 GM) IVPB SCH (21:00)
[2017-01-11] MEDS: Cefepime 1 GM in Sodium Chloride 0.9% 100 ML IVPB SCH (21:45)
[2017-01-12] MEDS: Linezolid 600 mg in D5W 300 ml 600 MG/300 ML BAG IVPB SCH ×2 (04:05→17:14)
[2017-01-12] MEDS: Cefepime 1 GM in Sodium Chloride 0.9% 100 ML IVPB SCH ×2 (08:30→21:15)
--- NOTE | 2017-01-12 09:10 | CP.PCM.HP ---
History of Present Illness - History of Present Illness History of Present Illness: Chief Complaint: transferred back to TCU for physical therapy HPI: 76 yo male with history of OA, LEONARDO, HTN, HLD, Renal Insufficiency and BPH had revision of left TKR on 12/13/2016 and was discharged from TCU on 12/24/2016. The next day patient fell from his wheelchair after hitting a bump in the street injuring his left knee and causing the wound to open. He had large amount of bleeding and was admitted at [facility] where he received 3 units of PRBC. Wound Vac and Hemovac were placed. He was later transferred to [facility] for further management since his orthopedist works here. Dr Blake, plastic surgeon, was consulted and he recommended patellar ligament repair and primary wound closure. Cultures from left knee were obtained during surgery and grew VRE (Vancomycin resistant eneterococci) and Pseudomonas. ID was consulted and Zyvox and Maxipime were recommended. Patient later was transferred to TCU for continuation of IV antibiotics and PT. Patient was taken back to OR for wound dehiscence, patella ligament reconstruction, with wound Vac placement on 01/10. Present on Admission - Present on Admission Any Indicators Present on Admission: Yes History Surgical Site Infection Following: Orthopedic Procedures - Notes: Notes:: Pt was d/c home post Revision TKR- had fallen in the street and sustained trauma to the surgical site - was admitted at [facility] then eventually transferred to [facility] Review of Systems - Review of Systems All systems: reviewed and no additional remarkable complaints except - Constitutional Constitutional: absent: Fever, Headache, Weakness - EENT Eyes: absent: Change in Vision Ears: absent: Decreased Hearing Nose/Mouth/Throat: absent: Nasal Congestion, Nasal Discharge - Cardiovascular Cardiovascular: absent: Chest Pain, Chest Pain at Rest, Orthopnea, Palpitations , Paroxysmal Nocturnal Dyspnea - Respiratory Respiratory: absent: Cough, Dyspnea, Dyspnea on Exertion - Gastrointestinal Gastrointestinal: absent: Abdominal Pain, Nausea, Vomiting - Genitourinary Genitourinary: absent: Change in Urinary Stream, Difficulty Urinating, Dysuria - Musculoskeletal Musculoskeletal: Arthralgias. absent: Back Pain, Muscle Weakness, Numbness - Integumentary Integumentary: absent: New Lesions, Rash - Neurological Neurological: absent: Confusion, Focal Weakness, Headaches, Memory Loss - Psychiatric Psychiatric: absent: Anxiety, Depression, Hopelessness, Suicidal Ideation - Endocrine Endocrine: absent: Polydipsia, Polyphagia, Polyuria - Hematologic/Lymphatic Hematologic: absent: Easy Bleeding, Easy Bruising Past Patient History - Infectious Disease Hx of Infectious Diseases: VRE - Tetanus Immunizations Tetanus Immunization: Unknown - Past Medical History & Family History Past Medical History?: Yes Past Family History: Reviewed and not pertinent - Past Social History Smoking Status: Never Smoked Chewing Tobacco Use: No Cigar Use: No Alcohol: None Drugs: Denies Home Situation {Lives}: With Family Domestic Violence: Negative - CARDIAC Hx Hypertension: Yes - PULMONARY Hx Sleep Apnea: Yes - NEUROLOGICAL Hx Neurological Disorder: No - HEENT Hx HEENT Problems: Yes Other/Comment: wears glasses - RENAL Hx Chronic Kidney Disease: Yes Other/Comment: renal insufficiency - ENDOCRINE/METABOLIC Hx Endocrine Disorders: No - HEMATOLOGICAL/ONCOLOGICAL Hx Anemia: Yes Hx Blood Transfusions: Yes - INTEGUMENTARY Hx Dermatological Problems: No - MUSCULOSKELETAL/RHEUMATOLOGICAL Hx Degenerative Joint Disease: Yes Hx Falls: Yes - GASTROINTESTINAL Hx Gastrointestinal Disorders: No - GENITOURINARY/GYNECOLOGICAL Hx Genitourinary Disorders: Yes Hx Prostate Problems: Yes - PSYCHIATRIC Hx Anxiety: No Hx Substance Use: No - SURGICAL HISTORY Hx Surgeries: Yes Hx Joint Replacement: Yes (TOTAL LEFT KNEE REPLACEMENT X 2) Other/Comment: LASER PROSTATE SX. 12/13/16 s/p left tkr revision - ANESTHESIA Hx Anesthesia: Yes Hx Anesthesia Reactions: No Hx Malignant Hyperthermia: No Has any member of the family had a problem w/ anesthesia?: No Meds Allergies/Adverse Reactions: Allergies Allergy/AdvReac Type Severity Reaction Status Date / Time No Known Allergies Allergy Verified 12/18/16 00:41 Physical Exam - Constitutional Appears: No Acute Distress, Chronically Ill - Head Exam Head Exam: NORMAL INSPECTION, NORMOCEPHALIC - Eye Exam Eye Exam: EOMI, Normal appearance Pupil Exam: NORMAL ACCOMODATION - ENT Exam ENT Exam: Mucous Membranes Moist, Normal External Ear Exam - Neck Exam Neck exam: Positive for: Full Rom. Negative for: Meningismus - Respiratory Exam Respiratory Exam: NORMAL BREATHING PATTERN. absent: Rales, Wheezes, Respiratory Distress - Cardiovascular Exam Cardiovascular Exam: REGULAR RHYTHM, +S1, +S2 - GI/Abdominal Exam GI & Abdominal Exam: Normal Bowel Sounds, Soft. absent: Tenderness - Extremities Exam Extremities exam: Positive for: normal capillary refill, pedal pulses present. Negative for: calf tenderness Additional comments: left knee with immobilizer - Back Exam Back exam: FULL ROM. absent: CVA tenderness (L), CVA tenderness (R) - Neurological Exam Neurological exam: Alert, CN II-XII Intact, Oriented x3, Reflexes Normal - Psychiatric Exam Psychiatric exam: Normal Affect, Normal Mood - Skin Skin Exam: Dry, Normal Color, Warm Results - Vital Signs Recent Vital Signs: Last Vital Signs Temp 97.7 F 01/12/17 07:46 Pulse 78 01/12/17 08:29 Resp 20 01/12/17 07:46 BP 135/75 01/12/17 08:29 Pulse Ox 99 01/12/17 07:46 Assessment & Plan - Assessment and Plan (Free Text) Assessment: 76 yo male with history of OA, LEONARDO, HTN, HLD, Renal Insufficiency and BPH had revision of left TKR on 12/13/2016 and was discharged from TCU on 12/24/2016. The next day patient fell from his wheelchair after hitting a bump in the street injuring his left knee and causing the wound to open. He had large amount of bleeding and was admitted at [facility] where he received 3 units of PRBC. Wound Vac and Hemovac were placed. He was later transferred to [facility] for further management since his orthopedist works here. Dr Blake, plastic surgeon, was consulted and he recommended patellar ligament repair and primary wound closure. Cultures from left knee were obtained during surgery and grew VRE (Vancomycin resistant eneterococci) and Pseudomonas. ID was consulted and Zyvox and Maxipime were recommended. Patient later was transferred to TCU for continuation of IV antibiotics and PT. Patient was taken back to OR for wound dehiscence, patella ligament reconstruction, with wound vac placement 01/10 1. Trauma, Dehiscence of Left Knee (Hx of Revision of TKR November) s/p revision with patellar tendon repair of left knee 01/03/2017 S/P PATELLA LIGAMENT RECONSTRUCTOIN WITH WOUND VAC placement 01/10/17 Cultures from the knee positive for VRE and Pseudomonas ID consulted Continue Zyvox and Maxipime- 6 wks total Ortho following pt closely 2. HTN (hypertension) BP stable continue Metoprolol and Hyzaar 3. Chronic anemia continue ferrous sulfate 4. BPH (benign prostatic hyperplasia) continue Flomax 5. Infected Left Knee wound culture grew Vancomycin Resistant Enterococcus and Pseudomonas Dr Quintero, ID on consult continue Zyvox and Maxipime as per ID 6. DVT Prophylaxis start ASA 81 mg bid ( discussed with Dr Chan) Decision To Admit - Pt Status Changed To: Hospital Disposition Of: Inpatient - Admit Certification Admit to Inpatient:: After my assessment, the patient will require hospitalization for at least two midnights. This is because of the severity of symptoms shown, intensity of services needed, and/or the medical risk in this patient being treated as an outpatient. - . Bed Request Type: Transitional Care Unit Admitting Physician: Mickie Cramer
[2017-01-12] MEDS: Lactobacillus Acidophilus 500 MU Cap PO SCH ×2 (10:24→17:14)
--- NOTE | 2017-01-12 10:53 | CP.PCM.CON ---
History of Present Illness - History of Present Illness History of Present Illness: THE PATIENT IS A 76 YEAR OLD MALE WHO LAS A HISTORY OF MILD CAD, HYPERTENSION, HYPERLIPIDEMIA AND LEFT KNEE PROBLEMS, HE HAD A LEFT KNEE REVISION LAST MONTH AND HAD TOYIN AND WENT HOME AND SUSTAINED TRAUMA TO THE KNEE AND WAS ADMITTED TO [facility] WHERE THE WOUND HEMATOMA WAS EVACUATED AND A DRAIN INSERTED AND THEN HE WAS TRANSFERRED TO [facility] WHERE DR NATION DID TWO SURGICAL PROCEDURES INCLUDING A PATELLA LIGAMENT REPAIR AND NOW HE IS BACK IN TCU FOR TOYIN AND OT. CARDIOLOGY WAS ASKED TO SEE AND FOLLOW HIM. HE DENIES CHEST PAIN OR SOB. Past Patient History - Tetanus Immunizations Tetanus Immunization: Unknown - Past Medical History & Family History Past Medical History?: Yes - Past Social History Smoking Status: Never Smoked - CARDIAC Hx Hypertension: Yes - PULMONARY Hx Respiratory Disorders: No Hx Sleep Apnea: Yes - NEUROLOGICAL Hx Neurological Disorder: No - HEENT Hx HEENT Problems: Yes Other/Comment: wears glasses - RENAL Hx Chronic Kidney Disease: Yes Other/Comment: renal insufficiency - ENDOCRINE/METABOLIC Hx Endocrine Disorders: No - HEMATOLOGICAL/ONCOLOGICAL Hx Anemia: Yes Hx Blood Transfusions: Yes - INTEGUMENTARY Hx Dermatological Problems: No - MUSCULOSKELETAL/RHEUMATOLOGICAL Hx Falls: Yes - GASTROINTESTINAL Hx Gastrointestinal Disorders: No - GENITOURINARY/GYNECOLOGICAL Hx Genitourinary Disorders: Yes Hx Prostate Problems: Yes - PSYCHIATRIC Hx Substance Use: No - SURGICAL HISTORY Hx Surgeries: Yes Hx Joint Replacement: Yes (TOTAL LEFT KNEE REPLACEMENT X 2) Other/Comment: LASER PROSTATE SX. 12/13/16 s/p left tkr revision - ANESTHESIA Hx Anesthesia: Yes Hx Anesthesia Reactions: No Hx Malignant Hyperthermia: No Meds Allergies/Adverse Reactions: Allergies Allergy/AdvReac Type Severity Reaction Status Date / Time No Known Allergies Allergy Verified 12/18/16 00:41 - Medications Medications: Current Medications Acetaminophen (Tylenol 325mg Tab) 650 mg PO Q6 PRN PRN Reason: Fever >100.4 F Acetaminophen (Tylenol 325mg Tab) 650 mg PO Q6 PRN PRN Reason: Pain, Mild (1-3) Allopurinol (Zyloprim) 100 mg PO DAILY [facility] Last Admin: 01/12/17 08:31 Dose: 100 mg Atorvastatin Calcium (Lipitor) 10 mg PO HS [facility] Last Admin: 01/11/17 21:44 Dose: 10 mg Docusate Sodium (Colace) 100 mg PO BID [facility] Last Admin: 01/12/17 08:27 Dose: 100 mg Ferrous Sulfate (Feosol) 325 mg PO TID [facility] Last Admin: 01/12/17 08:29 Dose: 325 mg Cefepime HCl 1 gm/ Sodium (Chloride) 100 mls @ 100 mls/hr IVPB Q12 [facility] Last Admin: 01/12/17 08:30 Dose: 100 mls/hr Linezolid (Zyvox 600mg/300ml D5w) 600 mg in 300 mls @ 150 mls/hr IVPB Q12@0500, 1700 [facility] Last Admin: 01/12/17 04:05 Dose: 150 mls/hr Lactobacillus Acidophilus (Bacid Acidophilus) 1 cap PO BID [facility] Last Admin: 01/12/17 10:24 Dose: 1 cap Losartan Potassium (Cozaar) 100 mg PO DAILY [facility] Last Admin: 01/12/17 08:28 Dose: 100 mg Metoprolol Tartrate (Lopressor) 50 mg PO Q12 [facility] Last Admin: 01/12/17 08:29 Dose: 50 mg Oxycodone/Acetaminophen (Percocet 5/325 Mg Tab) 1 tab PO Q4 PRN PRN Reason: Pain, moderate (4-7) Stop: 01/14/17 20:29 Oxycodone/Acetaminophen (Percocet 5/325 Mg Tab) 2 tab PO Q4 PRN PRN Reason: Pain, severe (8-10) Stop: 01/14/17 20:29 Sennosides (Senokot Tab) 1 mg PO BID [facility] Last Admin: 01/12/17 08:30 Dose: 1 mg Tamsulosin HCl (Flomax) 0.4 mg PO DAILY [facility] Last Admin: 01/12/17 08:29 Dose: 0.4 mg Physical Exam - Respiratory Exam Respiratory Exam: Clear to Auscultation Bilateral - Cardiovascular Exam Cardiovascular Exam: REGULAR RHYTHM, +S1, +S2 - Extremities Exam Additional comments: LLE WITH SURGICAL DRESSINGS Results - Vital Signs Recent Vital Signs: Last Vital Signs Temp 97.7 F 01/12/17 07:46 Pulse 78 01/12/17 08:29 Resp 20 01/12/17 07:46 BP 135/75 01/12/17 08:29 Pulse Ox 99 01/12/17 07:46 Assessment & Plan - Assessment and Plan (Free Text) Assessment: LEFT KNEE TRAUMA WITH MULTIPLE SURGERIES MILD CAD HYPERTENSION HYPERLIPIDEMIA Plan: CONTINUE ANTIBIOTICS, LOSARTAN, ATORVASTATIN, METOPROLOL, FEOSOL
[2017-01-12] MEDS: Oxycodone/Acetaminophen 5/325 mg Tab PO PRN (11:03)
[2017-01-12] MEDS ORDERED: Bisacodyl 5mg EC Tab PO ONE (17:52)
[2017-01-13] MEDS: Linezolid 600 mg in D5W 300 ml 600 MG/300 ML BAG IVPB SCH ×2 (03:59→17:18)
[2017-01-13] MEDS: Lactobacillus Acidophilus 500 MU Cap PO SCH ×2 (08:09→17:27)
[2017-01-13] MEDS: Oxycodone/Acetaminophen 5/325 mg Tab PO PRN ×2 (08:09→13:24)
[2017-01-13] MEDS: Cefepime 1 GM in Sodium Chloride 0.9% 100 ML IVPB SCH ×2 (08:13→21:03)
--- NOTE | 2017-01-13 09:08 | CP.PCM.PN ---
Subjective - Date & Time of Evaluation Date of Evaluation: 01/13/17 Time of Evaluation: 08:45 - Subjective Subjective: NO CHEST PAIN OR SOB Objective - Vital Signs/Intake and Output Vital Signs (last 24 hours): Temp Pulse Resp BP Pulse Ox 97.7 F 76 20 141/71 99 01/13/17 07:55 01/13/17 08:10 01/13/17 07:55 01/13/17 08:10 01/13/17 07:55 - Medications Medications: Current Medications Acetaminophen (Tylenol 325mg Tab) 650 mg PO Q6 PRN PRN Reason: Fever >100.4 F Acetaminophen (Tylenol 325mg Tab) 650 mg PO Q6 PRN PRN Reason: Pain, Mild (1-3) Allopurinol (Zyloprim) 100 mg PO DAILY [facility] Last Admin: 01/13/17 08:08 Dose: 100 mg Aspirin (Ecotrin) 81 mg PO BID [facility] Last Admin: 01/13/17 08:08 Dose: 81 mg Atorvastatin Calcium (Lipitor) 10 mg PO HS [facility] Last Admin: 01/12/17 21:13 Dose: 10 mg Docusate Sodium (Colace) 100 mg PO BID [facility] Last Admin: 01/13/17 08:09 Dose: 100 mg Ferrous Sulfate (Feosol) 325 mg PO TID [facility] Last Admin: 01/13/17 08:08 Dose: 325 mg Cefepime HCl 1 gm/ Sodium (Chloride) 100 mls @ 100 mls/hr IVPB Q12 [facility] Last Admin: 01/13/17 08:13 Dose: 100 mls/hr Linezolid (Zyvox 600mg/300ml D5w) 600 mg in 300 mls @ 150 mls/hr IVPB Q12@0500, 1700 [facility] Last Admin: 01/13/17 03:59 Dose: 150 mls/hr Lactobacillus Acidophilus (Bacid Acidophilus) 1 cap PO BID [facility] Last Admin: 01/13/17 08:09 Dose: 1 cap Losartan Potassium (Cozaar) 100 mg PO DAILY [facility] Last Admin: 01/13/17 08:08 Dose: 100 mg Metoprolol Tartrate (Lopressor) 50 mg PO Q12 [facility] Last Admin: 01/13/17 08:10 Dose: 50 mg Oxycodone/Acetaminophen (Percocet 5/325 Mg Tab) 1 tab PO Q4 PRN PRN Reason: Pain, moderate (4-7) Stop: 01/14/17 20:29 Oxycodone/Acetaminophen (Percocet 5/325 Mg Tab) 2 tab PO Q4 PRN PRN Reason: Pain, severe (8-10) Stop: 01/14/17 20:29 Last Admin: 01/13/17 08:09 Dose: 2 tab Sennosides (Senokot Tab) 1 mg PO BID [facility] Last Admin: 01/13/17 08:11 Dose: 1 mg Tamsulosin HCl (Flomax) 0.4 mg PO DAILY [facility] Last Admin: 01/13/17 08:08 Dose: 0.4 mg - Respiratory Exam Respiratory Exam: Clear to Ausculation Bilateral - Cardiovascular Exam Cardiovascular Exam: REGULAR RHYTHM, +S1, +S2 Assessment and Plan - Assessment and Plan (Free Text) Assessment: LEFT KNEE SURGERY HYPERTENSION HYPERLIPIDEMIA MILD CAD Plan: CONTINUE ANTIBIOTICS, LOSARTAN, METOPROLOL, ATORVASTATIN AND ASPIRIN CONTINUE REHAB AND OT
--- NOTE | 2017-01-13 09:17 | CP.PCM.PN ---
Subjective - Date & Time of Evaluation Date of Evaluation: 01/13/17 Time of Evaluation: 13:00 - Subjective Subjective: Patient seen and examined bedside. Complains of left knee pain . Wound vac to left knee with bloody output Hemodynamically stable, afebrile Complains of constipation with no BM for 5 days Objective - Vital Signs/Intake and Output Vital Signs (last 24 hours): Temp Pulse Resp BP Pulse Ox 97.7 F 76 20 141/71 99 01/13/17 07:55 01/13/17 08:10 01/13/17 07:55 01/13/17 08:10 01/13/17 07:55 - Medications Medications: Current Medications Acetaminophen (Tylenol 325mg Tab) 650 mg PO Q6 PRN PRN Reason: Fever >100.4 F Acetaminophen (Tylenol 325mg Tab) 650 mg PO Q6 PRN PRN Reason: Pain, Mild (1-3) Allopurinol (Zyloprim) 100 mg PO DAILY [facility] Last Admin: 01/13/17 08:08 Dose: 100 mg Aspirin (Ecotrin) 81 mg PO BID [facility] Last Admin: 01/13/17 08:08 Dose: 81 mg Atorvastatin Calcium (Lipitor) 10 mg PO HS [facility] Last Admin: 01/12/17 21:13 Dose: 10 mg Docusate Sodium (Colace) 100 mg PO BID [facility] Last Admin: 01/13/17 08:09 Dose: 100 mg Ferrous Sulfate (Feosol) 325 mg PO TID [facility] Last Admin: 01/13/17 08:08 Dose: 325 mg Cefepime HCl 1 gm/ Sodium (Chloride) 100 mls @ 100 mls/hr IVPB Q12 [facility] Last Admin: 01/13/17 08:13 Dose: 100 mls/hr Linezolid (Zyvox 600mg/300ml D5w) 600 mg in 300 mls @ 150 mls/hr IVPB Q12@0500, 1700 [facility] Last Admin: 01/13/17 03:59 Dose: 150 mls/hr Lactobacillus Acidophilus (Bacid Acidophilus) 1 cap PO BID [facility] Last Admin: 01/13/17 08:09 Dose: 1 cap Losartan Potassium (Cozaar) 100 mg PO DAILY [facility] Last Admin: 01/13/17 08:08 Dose: 100 mg Metoprolol Tartrate (Lopressor) 50 mg PO Q12 [facility] Last Admin: 01/13/17 08:10 Dose: 50 mg Oxycodone/Acetaminophen (Percocet 5/325 Mg Tab) 1 tab PO Q4 PRN PRN Reason: Pain, moderate (4-7) Stop: 01/14/17 20:29 Oxycodone/Acetaminophen (Percocet 5/325 Mg Tab) 2 tab PO Q4 PRN PRN Reason: Pain, severe (8-10) Stop: 01/14/17 20:29 Last Admin: 01/13/17 08:09 Dose: 2 tab Sennosides (Senokot Tab) 1 mg PO BID [facility] Last Admin: 01/13/17 08:11 Dose: 1 mg Tamsulosin HCl (Flomax) 0.4 mg PO DAILY [facility] Last Admin: 01/13/17 08:08 Dose: 0.4 mg - Constitutional Appears: Non-toxic, No Acute Distress, Other (obese) - Head Exam Head Exam: ATRAUMATIC, NORMAL INSPECTION, NORMOCEPHALIC - Eye Exam Eye Exam: EOMI, Normal appearance, PERRL Pupil Exam: NORMAL ACCOMODATION - ENT Exam ENT Exam: Mucous Membranes Moist, Normal Exam - Neck Exam Neck Exam: Full ROM, Normal Inspection - Respiratory Exam Respiratory Exam: Clear to Ausculation Bilateral, NORMAL BREATHING PATTERN. absent: Rales, Rhonchi, Wheezes - Cardiovascular Exam Cardiovascular Exam: REGULAR RHYTHM, RRR, +S1, +S2. absent: JVD - GI/Abdominal Exam GI & Abdominal Exam: Soft, Normal Bowel Sounds. absent: Guarding, Tenderness, Rebound - Rectal Exam Rectal Exam: Deferred - Extremities Exam Additional comments: left knee marisabel bandage in place with wound vac with bloody output able to move toes, capillary refill and sensation intact pain is controlled - Back Exam Back Exam: NORMAL INSPECTION - Neurological Exam Neurological Exam: Alert, Awake, CN II-XII Intact, Oriented x3 - Psychiatric Exam Psychiatric exam: Normal Affect, Normal Mood - Skin Skin Exam: Dry, Intact, Normal Color, Warm Assessment and Plan - Assessment and Plan (Free Text) Assessment: 76 yo male with history of OA, LEONARDO, HTN, HLD, Renal Insufficiency and BPH had revision of left TKR on 12/13/2016 and was discharged from TCU on 12/24/2016. The next day patient fell from his wheelchair after hitting a bump in the street injuring his left knee and causing the wound to open. He had large amount of bleeding and was admitted at [facility] where he received 3 units of PRBC. Wound Vac and Hemovac were placed. He was later transferred to [facility] for further management since his orthopedist works here. Dr Blake, plastic surgeon, was consulted and he recommended patellar ligament repair and primary wound closure. Cultures from left knee were obtained during surgery and grew VRE (Vancomycin resistant eneterococci) and Pseudomonas. ID was consulted and Zyvox and Maxipime were recommended. Patient later was transferred to TCU for continuation of IV antibiotics and PT. Patient was taken back to OR for wound dehiscence, patella ligament reconstruction, with wound vac placement 01/10 At present doing well, wound vac in place with bloody output. 1. Trauma, Dehiscence of Left Knee (Hx of Revision of TKR November) s/p revision with patellar tendon repair of left knee 01/03/2017 S/P PATELLA LIGAMENT RECONSTRUCTOIN WITH WOUND VAC placement 01/10/17 Cultures from the knee positive for VRE and Pseudomonas ID consulted Continue Zyvox and Maxipime- 6 wks total Ortho following pt closely Wound vac in place with bloody output 2. HTN (hypertension) BP stable continue Metoprolol and Hyzaar 3. Acute blood loss anemia continue ferrous sulfate 4. BPH (benign prostatic hyperplasia) continue Flomax 5. Infected Left Knee wound culture grew Vancomycin Resistant Enterococcus and Pseudomonas Dr Quintero, ID on consult continue Zyvox and Maxipime as per ID 6. DVT Prophylaxis start ASA 81 mg bid ( discussed with Dr Chan) 7. Constipation on Colace and senekot Will give Dulcolax MA
[2017-01-14] MEDS: Linezolid 600 mg in D5W 300 ml 600 MG/300 ML BAG IVPB SCH ×2 (04:15→16:21)
[2017-01-14] MEDS: Lactobacillus Acidophilus 500 MU Cap PO SCH ×2 (08:27→16:20)
[2017-01-14] MEDS: Cefepime 1 GM in Sodium Chloride 0.9% 100 ML IVPB SCH ×3 (08:33→23:12)
--- NOTE | 2017-01-14 09:39 | CP.PCM.PN ---
Subjective - Date & Time of Evaluation Date of Evaluation: 01/14/17 Time of Evaluation: 09:00 - Subjective Subjective: NO CHEST PAIN OR SOB STATES HE HE DOING WELL WITH REHAB AND OT Objective - Vital Signs/Intake and Output Vital Signs (last 24 hours): Temp Pulse Resp BP Pulse Ox 98.1 F 75 20 129/77 99 01/14/17 07:53 01/14/17 08:29 01/14/17 07:53 01/14/17 08:29 01/14/17 07:53 - Medications Medications: Current Medications Acetaminophen (Tylenol 325mg Tab) 650 mg PO Q6 PRN PRN Reason: Fever >100.4 F Acetaminophen (Tylenol 325mg Tab) 650 mg PO Q6 PRN PRN Reason: Pain, Mild (1-3) Allopurinol (Zyloprim) 100 mg PO DAILY [facility] Last Admin: 01/14/17 08:29 Dose: 100 mg Atorvastatin Calcium (Lipitor) 10 mg PO HS [facility] Last Admin: 01/13/17 21:02 Dose: 10 mg Bisacodyl (Dulcolax) 10 mg [place] DAILY [facility] Last Admin: 01/14/17 08:28 Dose: 10 mg Docusate Sodium (Colace) 100 mg PO BID [facility] Last Admin: 01/14/17 08:27 Dose: 100 mg Ferrous Sulfate (Feosol) 325 mg PO TID [facility] Last Admin: 01/14/17 08:27 Dose: 325 mg Cefepime HCl 1 gm/ Sodium (Chloride) 100 mls @ 100 mls/hr IVPB Q12 [facility] Last Admin: 01/14/17 08:33 Dose: 100 mls/hr Linezolid (Zyvox 600mg/300ml D5w) 600 mg in 300 mls @ 150 mls/hr IVPB Q12@0500, 1700 [facility] Last Admin: 01/14/17 04:15 Dose: 150 mls/hr Lactobacillus Acidophilus (Bacid Acidophilus) 1 cap PO BID [facility] Last Admin: 01/14/17 08:27 Dose: 1 cap Lactulose (Enulose) 20 gm PO BID PRN PRN Reason: Constipation Last Admin: 01/14/17 06:10 Dose: 20 gm Losartan Potassium (Cozaar) 100 mg PO DAILY [facility] Last Admin: 01/14/17 08:28 Dose: 100 mg Metoprolol Tartrate (Lopressor) 50 mg PO Q12 [facility] Last Admin: 01/14/17 08:29 Dose: 50 mg Oxycodone/Acetaminophen (Percocet 5/325 Mg Tab) 1 tab PO Q4 PRN PRN Reason: Pain, moderate (4-7) Stop: 01/14/17 20:29 Oxycodone/Acetaminophen (Percocet 5/325 Mg Tab) 2 tab PO Q4 PRN PRN Reason: Pain, severe (8-10) Stop: 01/14/17 20:29 Last Admin: 01/13/17 13:24 Dose: 2 tab Sennosides (Senokot Tab) 1 mg PO BID [facility] Last Admin: 01/14/17 08:29 Dose: 1 mg Tamsulosin HCl (Flomax) 0.4 mg PO DAILY [facility] Last Admin: 01/14/17 08:28 Dose: 0.4 mg - Respiratory Exam Respiratory Exam: Clear to Ausculation Bilateral - Cardiovascular Exam Cardiovascular Exam: REGULAR RHYTHM, +S1, +S2 Assessment and Plan - Assessment and Plan (Free Text) Assessment: LEFT KNEE REVISION AND TRAUMA MILD CAD HYPERTENSION HYPERLIPIDEMIA Plan: CONTINUE ANTIBIOTICS, LOSARTAN, METOPROLOL, ATORVASTATIN AND ASPIRIN CONTINUE PHYSICAL THERAPY AND OT
[2017-01-15] MEDS: Linezolid 600 mg in D5W 300 ml 600 MG/300 ML BAG IVPB SCH ×2 (04:27→17:00)
[2017-01-15] MEDS: Cefepime 1 GM in Sodium Chloride 0.9% 100 ML IVPB SCH ×2 (09:00→21:13)
[2017-01-15] MEDS: Lactobacillus Acidophilus 500 MU Cap PO SCH ×2 (10:11→16:57)
[2017-01-16] MEDS: Linezolid 600 mg in D5W 300 ml 600 MG/300 ML BAG IVPB SCH ×2 (05:58→17:00)
[2017-01-16] MEDS: Lactobacillus Acidophilus 500 MU Cap PO SCH ×2 (08:32→16:59)
[2017-01-16] MEDS: Cefepime 1 GM in Sodium Chloride 0.9% 100 ML IVPB SCH (09:00)
--- NOTE | 2017-01-16 12:56 | CP.PCM.PN ---
Subjective - Date & Time of Evaluation Date of Evaluation: 01/16/17 Time of Evaluation: 10:30 - Subjective Subjective: NO COMPLAINTS DOING WELL WITH REHAB Objective - Vital Signs/Intake and Output Vital Signs (last 24 hours): Temp Pulse Resp BP Pulse Ox 98.2 F 72 20 131/80 99 01/16/17 08:09 01/16/17 08:30 01/16/17 08:09 01/16/17 08:30 01/16/17 08:09 - Medications Medications: Current Medications Acetaminophen (Tylenol 325mg Tab) 650 mg PO Q6 PRN PRN Reason: Fever >100.4 F Last Admin: 01/15/17 10:17 Dose: 650 mg Acetaminophen (Tylenol 325mg Tab) 650 mg PO Q6 PRN PRN Reason: Pain, Mild (1-3) Allopurinol (Zyloprim) 100 mg PO DAILY [facility] Last Admin: 01/16/17 08:30 Dose: 100 mg Atorvastatin Calcium (Lipitor) 10 mg PO HS [facility] Last Admin: 01/15/17 21:12 Dose: 10 mg Bisacodyl (Dulcolax) 10 mg [place] DAILY [facility] Last Admin: 01/16/17 12:29 Dose: Not Given Docusate Sodium (Colace) 100 mg PO BID [facility] Last Admin: 01/16/17 08:29 Dose: 100 mg Ferrous Sulfate (Feosol) 325 mg PO TID [facility] Last Admin: 01/16/17 12:31 Dose: 325 mg Linezolid (Zyvox 600mg/300ml D5w) 600 mg in 300 mls @ 150 mls/hr IVPB Q12@0500, 1700 [facility] Last Admin: 01/16/17 05:58 Dose: 150 mls/hr Lactobacillus Acidophilus (Bacid Acidophilus) 1 cap PO BID [facility] Last Admin: 01/16/17 08:32 Dose: 1 cap Lactulose (Enulose) 20 gm PO BID PRN PRN Reason: Constipation Last Admin: 01/14/17 06:10 Dose: 20 gm Losartan Potassium (Cozaar) 100 mg PO DAILY [facility] Last Admin: 01/16/17 08:30 Dose: 100 mg Metoprolol Tartrate (Lopressor) 50 mg PO Q12 [facility] Last Admin: 01/16/17 08:30 Dose: 50 mg Sennosides (Senokot Tab) 8.6 mg PO BID [facility] Last Admin: 01/16/17 08:30 Dose: 8.6 mg Tamsulosin HCl (Flomax) 0.4 mg PO DAILY [facility] Last Admin: 01/16/17 08:30 Dose: 0.4 mg - Respiratory Exam Respiratory Exam: Clear to Ausculation Bilateral - Cardiovascular Exam Cardiovascular Exam: REGULAR RHYTHM, +S1, +S2 Assessment and Plan - Assessment and Plan (Free Text) Assessment: S/P LEFT KNEE TRAUMA AND REVISION MILD CAD HYPERTENSION HYPERLIPIDEMIA Plan: CONTINUE ANTIBIOTICS, LOSARTAN, METOPROLOL, ATORVASTATIN, FEOSOL CONTINUE REHAB AND OT
[2017-01-17] MEDS: Linezolid 600 mg in D5W 300 ml 600 MG/300 ML BAG IVPB SCH ×2 (04:54→17:15)
[2017-01-17] MEDS: Cefepime 1 GM in Sodium Chloride 0.9% 100 ML IVPB SCH ×2 (04:54→16:04)
[2017-01-17] MEDS: Lactobacillus Acidophilus 500 MU Cap PO SCH ×2 (08:16→16:03)
--- NOTE | 2017-01-17 09:32 | CP.PCM.PN ---
Subjective - Date & Time of Evaluation Date of Evaluation: 01/17/17 Time of Evaluation: 09:00 - Subjective Subjective: NO NEW COMPLAINTS Objective - Vital Signs/Intake and Output Vital Signs (last 24 hours): Temp Pulse Resp BP Pulse Ox 97.7 F 62 20 148/80 100 01/17/17 07:59 01/17/17 08:19 01/17/17 07:59 01/17/17 08:19 01/17/17 07:59 - Medications Medications: Current Medications Acetaminophen (Tylenol 325mg Tab) 650 mg PO Q6 PRN PRN Reason: Fever >100.4 F Last Admin: 01/15/17 10:17 Dose: 650 mg Acetaminophen (Tylenol 325mg Tab) 650 mg PO Q6 PRN PRN Reason: Pain, Mild (1-3) Allopurinol (Zyloprim) 100 mg PO DAILY [facility] Last Admin: 01/17/17 08:20 Dose: 100 mg Atorvastatin Calcium (Lipitor) 10 mg PO HS [facility] Last Admin: 01/16/17 21:20 Dose: 10 mg Bisacodyl (Dulcolax) 10 mg [place] DAILY [facility] Last Admin: 01/17/17 08:18 Dose: Not Given Docusate Sodium (Colace) 100 mg PO BID [facility] Last Admin: 01/17/17 08:17 Dose: 100 mg Ferrous Sulfate (Feosol) 325 mg PO TID [facility] Last Admin: 01/17/17 08:19 Dose: 325 mg Linezolid (Zyvox 600mg/300ml D5w) 600 mg in 300 mls @ 150 mls/hr IVPB Q12@0500, 1700 [facility] Last Admin: 01/17/17 04:54 Dose: 150 mls/hr Cefepime HCl 1 gm/ Sodium (Chloride) 100 mls @ 100 mls/hr IVPB Q12@0500,1700 [facility] Last Admin: 01/17/17 04:54 Dose: 100 mls/hr Lactobacillus Acidophilus (Bacid Acidophilus) 1 cap PO BID [facility] Last Admin: 01/17/17 08:16 Dose: 1 cap Lactulose (Enulose) 20 gm PO BID PRN PRN Reason: Constipation Last Admin: 01/14/17 06:10 Dose: 20 gm Losartan Potassium (Cozaar) 100 mg PO DAILY [facility] Last Admin: 01/17/17 08:18 Dose: 100 mg Metoprolol Tartrate (Lopressor) 50 mg PO Q12 [facility] Last Admin: 01/17/17 08:19 Dose: 50 mg Sennosides (Senokot Tab) 8.6 mg PO BID [facility] Last Admin: 01/17/17 08:20 Dose: 8.6 mg Tamsulosin HCl (Flomax) 0.4 mg PO DAILY [facility] Last Admin: 01/17/17 08:19 Dose: 0.4 mg - Respiratory Exam Respiratory Exam: Clear to Ausculation Bilateral - Cardiovascular Exam Cardiovascular Exam: REGULAR RHYTHM, +S1, +S2 Assessment and Plan - Assessment and Plan (Free Text) Assessment: S/P LEFT KNEE SURGERY MILD CAD HYPERTENSION HYPERLIPIDEMIA Plan: CONTINUE ANTIBIOTICS, METOPROLOL, LOSARTAN, ATORVASTATIN, FEOSOL CONTINUE PHYSICAL THERAPY
[2017-01-18] MEDS: Cefepime 1 GM in Sodium Chloride 0.9% 100 ML IVPB SCH ×2 (04:33→16:27)
[2017-01-18] MEDS: Linezolid 600 mg in D5W 300 ml 600 MG/300 ML BAG IVPB SCH ×2 (04:34→17:37)
[2017-01-18 07:26] LABS: HEMATOCRIT 30.1 % (35.0-51.0); MEAN CORPUSCULAR HEMOGLOBIN 27.8 pg (27.0-31.0); MEAN CORPUSCULAR HGB CONC 32.3 g/dL (33.0-37.0); RED CELL DISTRIBUTION WIDTH 15.7 % (11.5-14.5); WHITE BLOOD COUNT 6.1 K/uL (4.8-10.8)
[2017-01-18 07:32] LABS: BLOOD UREA NITROGEN 14 mg/dl (9-20); CALCIUM 9.2 mg/dL (8.4-10.2); CARBON DIOXIDE 29 mmol/L (22-30); CHLORIDE 107 mmol/L (98-107); GFR AFRICAN-AMERICAN > 60; GLUCOSE,RANDOM 90 mg/dL (75-110); POTASSIUM 4.2 MMOL/L (3.6-5.0); SODIUM 138 mmol/l (132-148)
[2017-01-18] MEDS: Lactobacillus Acidophilus 500 MU Cap PO SCH ×2 (08:47→16:28)
--- NOTE | 2017-01-18 09:25 | CP.PCM.PN ---
Subjective - Date & Time of Evaluation Date of Evaluation: 01/18/17 Time of Evaluation: 08:45 - Subjective Subjective: NO COMPLAINTS DOING WELL IN REHAB Objective - Vital Signs/Intake and Output Vital Signs (last 24 hours): Temp Pulse Resp BP Pulse Ox 98.6 F 59 L 20 154/97 H 99 01/18/17 07:55 01/18/17 08:51 01/18/17 07:55 01/18/17 08:51 01/18/17 07:55 - Medications Medications: Current Medications Acetaminophen (Tylenol 325mg Tab) 650 mg PO Q6 PRN PRN Reason: Fever >100.4 F Last Admin: 01/15/17 10:17 Dose: 650 mg Acetaminophen (Tylenol 325mg Tab) 650 mg PO Q6 PRN PRN Reason: Pain, Mild (1-3) Allopurinol (Zyloprim) 100 mg PO DAILY [facility] Last Admin: 01/18/17 08:48 Dose: 100 mg Atorvastatin Calcium (Lipitor) 10 mg PO HS [facility] Last Admin: 01/17/17 22:25 Dose: 10 mg Bisacodyl (Dulcolax) 10 mg [place] DAILY [facility] Last Admin: 01/18/17 08:59 Dose: Not Given Docusate Sodium (Colace) 100 mg PO BID [facility] Last Admin: 01/18/17 08:47 Dose: 100 mg Ferrous Sulfate (Feosol) 325 mg PO TID [facility] Last Admin: 01/18/17 08:51 Dose: 325 mg Linezolid (Zyvox 600mg/300ml D5w) 600 mg in 300 mls @ 150 mls/hr IVPB Q12@0500, 1700 [facility] Last Admin: 01/18/17 04:34 Dose: 150 mls/hr Cefepime HCl 1 gm/ Sodium (Chloride) 100 mls @ 100 mls/hr IVPB Q12@0500,1700 [facility] Last Admin: 01/18/17 04:33 Dose: 100 mls/hr Lactobacillus Acidophilus (Bacid Acidophilus) 1 cap PO BID [facility] Last Admin: 01/18/17 08:47 Dose: 1 cap Lactulose (Enulose) 20 gm PO BID PRN PRN Reason: Constipation Last Admin: 01/14/17 06:10 Dose: 20 gm Losartan Potassium (Cozaar) 100 mg PO DAILY [facility] Last Admin: 01/18/17 08:51 Dose: 100 mg Metoprolol Tartrate (Lopressor) 50 mg PO Q12 [facility] Last Admin: 01/18/17 08:48 Dose: 50 mg Sennosides (Senokot Tab) 8.6 mg PO BID [facility] Last Admin: 01/18/17 08:50 Dose: 8.6 mg Tamsulosin HCl (Flomax) 0.4 mg PO DAILY [facility] Last Admin: 01/18/17 08:51 Dose: 0.4 mg - Labs Labs: 01/18/17 06:15 01/18/17 06:15 - Respiratory Exam Respiratory Exam: Clear to Ausculation Bilateral - Cardiovascular Exam Cardiovascular Exam: REGULAR RHYTHM, +S1, +S2 - Additional Findings Additional findings: SS NOTE REVIEWED Assessment and Plan - Assessment and Plan (Free Text) Assessment: S/P LEFT KNEE SURGERY MILD CAD HYPERTENSION HYPERLIPIDEMIA Plan: CONTINUE METOPROLOL, LOSARTAN, ATORVASTATIN AND ANTIBIOTICS FOR PICC LINE AND THEN DISCHARGE TO PATIENT TRANSITION SPECIALIST [facility] FOR ANTIBIOTIC [place]
--- NOTE | 2017-01-18 10:12 | CP.PCM.PN ---
Subjective - Date & Time of Evaluation Date of Evaluation: 01/18/17 Time of Evaluation: 10:11 - Subjective Subjective: seen examined bedside doing well no complaints woundvac bloody drainage HD stable nad Objective - Vital Signs/Intake and Output Vital Signs (last 24 hours): Temp Pulse Resp BP Pulse Ox 98.6 F 59 L 20 154/97 H 99 01/18/17 07:55 01/18/17 08:51 01/18/17 07:55 01/18/17 08:51 01/18/17 07:55 - Medications Medications: Current Medications Acetaminophen (Tylenol 325mg Tab) 650 mg PO Q6 PRN PRN Reason: Fever >100.4 F Last Admin: 01/15/17 10:17 Dose: 650 mg Acetaminophen (Tylenol 325mg Tab) 650 mg PO Q6 PRN PRN Reason: Pain, Mild (1-3) Allopurinol (Zyloprim) 100 mg PO DAILY [facility] Last Admin: 01/18/17 08:48 Dose: 100 mg Atorvastatin Calcium (Lipitor) 10 mg PO HS [facility] Last Admin: 01/17/17 22:25 Dose: 10 mg Bisacodyl (Dulcolax) 10 mg [place] DAILY [facility] Last Admin: 01/18/17 08:59 Dose: Not Given Docusate Sodium (Colace) 100 mg PO BID [facility] Last Admin: 01/18/17 08:47 Dose: 100 mg Ferrous Sulfate (Feosol) 325 mg PO TID [facility] Last Admin: 01/18/17 08:51 Dose: 325 mg Linezolid (Zyvox 600mg/300ml D5w) 600 mg in 300 mls @ 150 mls/hr IVPB Q12@0500, 1700 [facility] Last Admin: 01/18/17 04:34 Dose: 150 mls/hr Cefepime HCl 1 gm/ Sodium (Chloride) 100 mls @ 100 mls/hr IVPB Q12@0500,1700 [facility] Last Admin: 01/18/17 04:33 Dose: 100 mls/hr Lactobacillus Acidophilus (Bacid Acidophilus) 1 cap PO BID [facility] Last Admin: 01/18/17 08:47 Dose: 1 cap Lactulose (Enulose) 20 gm PO BID PRN PRN Reason: Constipation Last Admin: 01/14/17 06:10 Dose: 20 gm Losartan Potassium (Cozaar) 100 mg PO DAILY [facility] Last Admin: 01/18/17 08:51 Dose: 100 mg Metoprolol Tartrate (Lopressor) 50 mg PO Q12 [facility] Last Admin: 01/18/17 08:48 Dose: 50 mg Sennosides (Senokot Tab) 8.6 mg PO BID [facility] Last Admin: 01/18/17 08:50 Dose: 8.6 mg Tamsulosin HCl (Flomax) 0.4 mg PO DAILY [facility] Last Admin: 01/18/17 08:51 Dose: 0.4 mg - Labs Labs: 01/18/17 06:15 01/18/17 06:15 - Constitutional Appears: Non-toxic, No Acute Distress - Head Exam Head Exam: ATRAUMATIC, NORMOCEPHALIC - Eye Exam Eye Exam: EOMI, Normal appearance, PERRL Pupil Exam: NORMAL ACCOMODATION - ENT Exam ENT Exam: Mucous Membranes Moist, Normal Oropharynx - Respiratory Exam Respiratory Exam: Clear to Ausculation Bilateral, NORMAL BREATHING PATTERN - Cardiovascular Exam Cardiovascular Exam: RRR, +S1 - GI/Abdominal Exam GI & Abdominal Exam: Soft, Normal Bowel Sounds. absent: Tenderness, Organomegaly - Extremities Exam Extremities Exam: Normal Capillary Refill. absent: Calf Tenderness - Back Exam Back Exam: absent: CVA tenderness (L), CVA tenderness (R) - Neurological Exam Neurological Exam: Alert, Awake, Oriented x3 - Psychiatric Exam Psychiatric exam: Normal Affect, Normal Mood - Skin Skin Exam: Dry, Warm Assessment and Plan - Assessment and Plan (Free Text) Plan: 76 yo male with history of OA, LEONARDO, HTN, HLD, Renal Insufficiency and BPH had revision of left TKR on 12/13/2016 and was discharged from TCU on 12/24/2016. The next day patient fell from his wheelchair after hitting a bump in the street injuring his left knee and causing the wound to open. He had large amount of bleeding and was admitted at [facility] where he received 3 units of PRBC. Wound Vac and Hemovac were placed. He was later transferred to [facility] for further management since his orthopedist works here. Dr Blake, plastic surgeon, was consulted and he recommended patellar ligament repair and primary wound closure. Cultures from left knee were obtained during surgery and grew VRE (Vancomycin resistant eneterococci) and Pseudomonas. ID was consulted and Zyvox and Maxipime were recommended. Patient later was transferred to TCU for continuation of IV antibiotics and PT. Patient was taken back to OR for wound dehiscence, patella ligament reconstruction, with wound vac placement 01/10 At present doing well, wound vac in place with bloody output. 1. Trauma, Dehiscence of Left Knee (Hx of Revision of TKR November) s/p revision with patellar tendon repair of left knee 01/03/2017 S/P PATELLA LIGAMENT RECONSTRUCTOIN WITH WOUND VAC placement 01/10/17 Cultures from the knee positive for VRE and Pseudomonas ID consulted Continue Zyvox and Maxipime- 6 wks total PICC placement likely tomorrow Ortho following pt closely Wound vac in place with bloody output 2. HTN (hypertension) BP stable continue Metoprolol and Hyzaar 3. Acute blood loss anemia continue ferrous sulfate 4. BPH (benign prostatic hyperplasia) continue Flomax 5. Infected Left Knee wound culture grew Vancomycin Resistant Enterococcus and Pseudomonas Dr Quintero, ID on consult continue Zyvox and Maxipime as per ID 6. DVT Prophylaxis start ASA 81 mg bid ( discussed with Dr Chan) 7. Constipation on Colace and senekot Will give Dulcolax ME
--- NOTE | 2017-01-19 09:38 | CP.PCM.PN ---
Subjective - Date & Time of Evaluation Date of Evaluation: 01/19/17 Time of Evaluation: 07:00 - Subjective Subjective: NO CHEST PAIN OR SOB Objective - Vital Signs/Intake and Output Vital Signs (last 24 hours): Temp Pulse Resp BP Pulse Ox 97.9 F 71 20 142/77 98 01/19/17 08:01 01/19/17 08:01 01/19/17 08:01 01/19/17 08:01 01/19/17 08:01 - Medications Medications: Current Medications Acetaminophen (Tylenol 325mg Tab) 650 mg PO Q6 PRN PRN Reason: Fever >100.4 F Last Admin: 01/15/17 10:17 Dose: 650 mg Acetaminophen (Tylenol 325mg Tab) 650 mg PO Q6 PRN PRN Reason: Pain, Mild (1-3) Allopurinol (Zyloprim) 100 mg PO DAILY [facility] Last Admin: 01/18/17 08:48 Dose: 100 mg Atorvastatin Calcium (Lipitor) 10 mg PO HS [facility] Last Admin: 01/18/17 21:55 Dose: 10 mg Bisacodyl (Dulcolax) 10 mg [place] DAILY [facility] Last Admin: 01/18/17 08:59 Dose: Not Given Docusate Sodium (Colace) 100 mg PO BID [facility] Last Admin: 01/18/17 16:28 Dose: 100 mg Ferrous Sulfate (Feosol) 325 mg PO TID [facility] Last Admin: 01/18/17 16:28 Dose: 325 mg Linezolid (Zyvox 600mg/300ml D5w) 600 mg in 300 mls @ 150 mls/hr IVPB Q12@0500, 1700 [facility] Last Admin: 01/18/17 17:37 Dose: 150 mls/hr Cefepime HCl 1 gm/ Sodium (Chloride) 100 mls @ 100 mls/hr IVPB Q12@0500,1700 [facility] Last Admin: 01/18/17 16:27 Dose: 100 mls/hr Lactobacillus Acidophilus (Bacid Acidophilus) 1 cap PO BID [facility] Last Admin: 01/18/17 16:28 Dose: 1 cap Lactulose (Enulose) 20 gm PO BID PRN PRN Reason: Constipation Last Admin: 01/14/17 06:10 Dose: 20 gm Losartan Potassium (Cozaar) 100 mg PO DAILY [facility] Last Admin: 01/18/17 08:51 Dose: 100 mg Metoprolol Tartrate (Lopressor) 50 mg PO Q12 [facility] Last Admin: 01/18/17 21:54 Dose: 50 mg Sennosides (Senokot Tab) 8.6 mg PO BID [facility] Last Admin: 01/18/17 16:29 Dose: 8.6 mg Tamsulosin HCl (Flomax) 0.4 mg PO DAILY [facility] Last Admin: 01/18/17 08:51 Dose: 0.4 mg - Labs Labs: 01/18/17 06:15 01/18/17 06:15 - Respiratory Exam Respiratory Exam: Clear to Ausculation Bilateral - Cardiovascular Exam Cardiovascular Exam: +S1, +S2 Assessment and Plan - Assessment and Plan (Free Text) Assessment: S/P MULTIPLE LEFT KNEE SURGERIES MILD CAD HYPERTENSION HYPERLIPIDEMIA Plan: CONTINUE ANTIBIOTICS, LOSARTAN, METOPROLOL, ATORVASTATIN FOR PICC LINE INSERTION TODAY FOR GROUP HOME IV ANTIBIOTIC ADMINISTRATION
[2017-01-19] MEDS: Lactobacillus Acidophilus 500 MU Cap PO SCH ×2 (10:20→17:43)
[2017-01-19] MEDS: Linezolid 600 mg in D5W 300 ml 600 MG/300 ML BAG IVPB SCH (17:44)
[2017-01-19] MEDS: Cefepime 1 GM in Sodium Chloride 0.9% 100 ML IVPB SCH (17:45)
[2017-01-20] MEDS: Cefepime 1 GM in Sodium Chloride 0.9% 100 ML IVPB SCH ×2 (04:40→16:50)
[2017-01-20] MEDS: Linezolid 600 mg in D5W 300 ml 600 MG/300 ML BAG IVPB SCH ×2 (04:45→16:51)
[2017-01-20] MEDS: Lactobacillus Acidophilus 500 MU Cap PO SCH ×2 (09:03→16:49)
--- NOTE | 2017-01-20 09:12 | CP.PCM.PN ---
Subjective - Date & Time of Evaluation Date of Evaluation: 01/20/17 Time of Evaluation: 08:00 - Subjective Subjective: NO COMPLAINTS HAD PICC LINE INSERTED YESTERDAY Objective - Vital Signs/Intake and Output Vital Signs (last 24 hours): Temp Pulse Resp BP Pulse Ox 97.5 F L 56 L 20 136/73 97 01/20/17 08:45 01/20/17 09:04 01/20/17 08:45 01/20/17 09:04 01/20/17 08:45 - Medications Medications: Current Medications Acetaminophen (Tylenol 325mg Tab) 650 mg PO Q6 PRN PRN Reason: Fever >100.4 F Last Admin: 01/15/17 10:17 Dose: 650 mg Acetaminophen (Tylenol 325mg Tab) 650 mg PO Q6 PRN PRN Reason: Pain, Mild (1-3) Allopurinol (Zyloprim) 100 mg PO DAILY [facility] Last Admin: 01/20/17 09:05 Dose: 100 mg Atorvastatin Calcium (Lipitor) 10 mg PO HS [facility] Last Admin: 01/19/17 23:25 Dose: 10 mg Bisacodyl (Dulcolax) 10 mg [place] DAILY [facility] Last Admin: 01/20/17 09:05 Dose: Not Given Docusate Sodium (Colace) 100 mg PO BID [facility] Last Admin: 01/20/17 09:04 Dose: 100 mg Ferrous Sulfate (Feosol) 325 mg PO TID [facility] Last Admin: 01/20/17 09:05 Dose: 325 mg Linezolid (Zyvox 600mg/300ml D5w) 600 mg in 300 mls @ 150 mls/hr IVPB Q12@0500, 1700 [facility] Last Admin: 01/20/17 04:45 Dose: 150 mls/hr Cefepime HCl 1 gm/ Sodium (Chloride) 100 mls @ 100 mls/hr IVPB Q12@0500,1700 [facility] Last Admin: 01/20/17 04:40 Dose: 100 mls/hr Lactobacillus Acidophilus (Bacid Acidophilus) 1 cap PO BID [facility] Last Admin: 01/20/17 09:03 Dose: 1 cap Lactulose (Enulose) 20 gm PO BID PRN PRN Reason: Constipation Last Admin: 01/14/17 06:10 Dose: 20 gm Losartan Potassium (Cozaar) 100 mg PO DAILY [facility] Last Admin: 01/20/17 09:04 Dose: 100 mg Metoprolol Tartrate (Lopressor) 50 mg PO Q12 [facility] Last Admin: 01/20/17 09:03 Dose: 50 mg Sennosides (Senokot Tab) 8.6 mg PO BID [facility] Last Admin: 01/20/17 09:03 Dose: 8.6 mg Tamsulosin HCl (Flomax) 0.4 mg PO DAILY [facility] Last Admin: 01/20/17 09:04 Dose: 0.4 mg - Labs Labs: 01/18/17 06:15 01/18/17 06:15 - Respiratory Exam Respiratory Exam: Clear to Ausculation Bilateral - Cardiovascular Exam Cardiovascular Exam: REGULAR RHYTHM, +S1, +S2 - Additional Findings Additional findings: PATIENT HAD PICC LINE INSERTED IN THE RIGHT ARM YESTERDAY NURSES STATE THAT DR NATION WANTS THE PATIENT TO STAY HERE ON THE WOUND VAC FOR ANOTHER WEEK BEFORE HE IS TRANSFERRED TO ANOTHER FACILITY TO COMPLETE HIS ANTIBIOTIC COURSE Assessment and Plan - Assessment and Plan (Free Text) Assessment: S/P MULTIPLE SURGERIES ON THE LEFT KNEE MILD CAD HYPERTENSION HYPERLIPIDEMIA Plan: CONTINUE ANTIBIOTICS, LOSARTAN, METOPROLOL, ATORVASTATIN, FEOSOL CONTINUE WOUND VAC CONTINUE PHYSICAL THERAPY AND OT
--- NOTE | 2017-01-20 13:49 | CP.PCM.PN ---
Subjective - Date & Time of Evaluation Date of Evaluation: 01/20/17 Time of Evaluation: 13:47 - Subjective Subjective: pt tolerating PT well Wound vac in place HD stable no other complaints Temp Pulse Resp BP Pulse Ox 97.5 F L 56 L 20 109/66 97 01/20/17 09:54 01/20/17 09:54 01/20/17 09:54 01/20/17 09:54 01/20/17 09:54 GEN: WDWN, alert, cooperative HEENT: NCAT, PERRL, EOMI NECK: supple, no JVD, no lymphadenopathy CARDIAC: +S1S2 RRR LUNG: CTAB No WRR ABD: SOFT NT ND BSX4 NO MASSES NO HSM EXT: +pedal pulses, equal strength WOUND VAC NEURO: AAOx3 SKIN warm, dry PSYCH normal mood, normal affect 01/18/17 06:15 01/18/17 06:15 01/11/17 20:28 Acetaminophen [Tylenol 325mg tab] 650 mg PO Q6 PRN Acetaminophen [Tylenol 325mg tab] 650 mg PO Q6 PRN 01/11/17 21:00 Metoprolol Tartrate [Lopressor] 50 mg PO Q12 01/11/17 22:00 Atorvastatin [Lipitor] 10 mg PO HS 01/12/17 05:00 Linezolid 600 mg in D5W 300 ml [Zyvox 600mg/300ml D5W] 600 mg in 300 ml IVPB Q12 @0500,1700 01/12/17 09:00 Allopurinol [Zyloprim] 100 mg PO DAILY Docusate [Colace] 100 mg PO BID Ferrous Sulfate [Feosol] 325 mg PO TID Losartan [Cozaar] 100 mg PO DAILY Tamsulosin [Flomax] 0.4 mg PO DAILY 01/12/17 09:15 Lactobacillus Acidophilus [Bacid Acidophilus] 1 cap PO BID 01/13/17 13:13 Bisacodyl [Dulcolax] 10 mg [place] DAILY 01/13/17 17:50 Lactulose [Enulose] 20 gm PO BID PRN 01/14/17 17:00 Sennosides A and B [Senokot Tab] 8.6 mg PO BID 01/17/17 05:00 Cefepime [Maxipime] 1 gm Sodium Chloride 0.9% 100 ml IVPB Q12@0500,1700 76 yo male with history of OA, LEONARDO, HTN, HLD, Renal Insufficiency and BPH had revision of left TKR on 12/13/2016 and was discharged from TCU on 12/24/2016. The next day patient fell from his wheelchair after hitting a bump in the street injuring his left knee and causing the wound to open. He had large amount of bleeding and was admitted at [facility] where he received 3 units of PRBC. Wound Vac and Hemovac were placed. He was later transferred to [facility] for further management since his orthopedist works here. Dr Blake, plastic surgeon, was consulted and he recommended patellar ligament repair and primary wound closure. Cultures from left knee were obtained during surgery and grew VRE (Vancomycin resistant eneterococci) and Pseudomonas. ID was consulted and Zyvox and Maxipime were recommended. Patient later was transferred to TCU for continuation of IV antibiotics and PT. Patient was taken back to OR for wound dehiscence, patella ligament reconstruction, with wound vac placement 01/10 At present doing well, wound vac in place with bloody output. 1. Trauma, Dehiscence of Left Knee (Hx of Revision of TKR November) s/p revision with patellar tendon repair of left knee 01/03/2017 S/P PATELLA LIGAMENT RECONSTRUCTOIN WITH WOUND VAC placement 01/10/17 Cultures from the knee positive for VRE and Pseudomonas ID consulted Continue Zyvox and Maxipime- 6 wks total PICC placement likely tomorrow Ortho following pt closely Wound vac in place with bloody output 2. HTN (hypertension) BP stable continue Metoprolol and Hyzaar 3. Acute blood loss anemia continue ferrous sulfate 4. BPH (benign prostatic hyperplasia) continue Flomax 5. Infected Left Knee wound culture grew Vancomycin Resistant Enterococcus and Pseudomonas Dr Quintero, ID on consult continue Zyvox and Maxipime as per ID 6. DVT Prophylaxis start ASA 81 mg bid ( discussed with Dr Chan) 7. Constipation on Colace and senekot Will give Dulcolax IA Objective - Vital Signs/Intake and Output Vital Signs (last 24 hours): Temp Pulse Resp BP Pulse Ox 97.5 F L 56 L 20 109/66 97 01/20/17 09:54 01/20/17 09:54 01/20/17 09:54 01/20/17 09:54 01/20/17 09:54 - Medications Medications: Current Medications Acetaminophen (Tylenol 325mg Tab) 650 mg PO Q6 PRN PRN Reason: Fever >100.4 F Last Admin: 01/15/17 10:17 Dose: 650 mg Acetaminophen (Tylenol 325mg Tab) 650 mg PO Q6 PRN PRN Reason: Pain, Mild (1-3) Allopurinol (Zyloprim) 100 mg PO DAILY [facility] Last Admin: 01/20/17 09:05 Dose: 100 mg Atorvastatin Calcium (Lipitor) 10 mg PO HS [facility] Last Admin: 01/19/17 23:25 Dose: 10 mg Bisacodyl (Dulcolax) 10 mg [place] DAILY [facility] Last Admin: 01/20/17 09:05 Dose: Not Given Docusate Sodium (Colace) 100 mg PO BID [facility] Last Admin: 01/20/17 09:04 Dose: 100 mg Ferrous Sulfate (Feosol) 325 mg PO TID [facility] Last Admin: 01/20/17 12:42 Dose: 325 mg Linezolid (Zyvox 600mg/300ml D5w) 600 mg in 300 mls @ 150 mls/hr IVPB Q12@0500, 1700 [facility] Last Admin: 01/20/17 04:45 Dose: 150 mls/hr Cefepime HCl 1 gm/ Sodium (Chloride) 100 mls @ 100 mls/hr IVPB Q12@0500,1700 [facility] Last Admin: 01/20/17 04:40 Dose: 100 mls/hr Lactobacillus Acidophilus (Bacid Acidophilus) 1 cap PO BID [facility] Last Admin: 01/20/17 09:03 Dose: 1 cap Lactulose (Enulose) 20 gm PO BID PRN PRN Reason: Constipation Last Admin: 01/14/17 06:10 Dose: 20 gm Losartan Potassium (Cozaar) 100 mg PO DAILY [facility] Last Admin: 01/20/17 09:04 Dose: 100 mg Metoprolol Tartrate (Lopressor) 50 mg PO Q12 [facility] Last Admin: 01/20/17 09:03 Dose: 50 mg Sennosides (Senokot Tab) 8.6 mg PO BID [facility] Last Admin: 01/20/17 09:03 Dose: 8.6 mg Tamsulosin HCl (Flomax) 0.4 mg PO DAILY [facility] Last Admin: 01/20/17 09:04 Dose: 0.4 mg - Labs Labs: 01/18/17 06:15 01/18/17 06:15
[2017-01-21] MEDS: Cefepime 1 GM in Sodium Chloride 0.9% 100 ML IVPB SCH ×2 (04:04→16:20)
[2017-01-21] MEDS: Linezolid 600 mg in D5W 300 ml 600 MG/300 ML BAG IVPB SCH ×2 (05:03→17:25)
[2017-01-21] MEDS: Lactobacillus Acidophilus 500 MU Cap PO SCH ×2 (08:49→16:19)
--- NOTE | 2017-01-21 09:05 | CP.PCM.PN ---
Subjective - Date & Time of Evaluation Date of Evaluation: 01/21/17 Time of Evaluation: 08:40 - Subjective Subjective: NO CHEST PAIN OR SOB FEELS OK Objective - Vital Signs/Intake and Output Vital Signs (last 24 hours): Temp Pulse Resp BP Pulse Ox 98.2 F 69 20 144/75 100 01/21/17 08:12 01/21/17 08:51 01/21/17 08:12 01/21/17 08:51 01/21/17 08:12 - Medications Medications: Current Medications Acetaminophen (Tylenol 325mg Tab) 650 mg PO Q6 PRN PRN Reason: Fever >100.4 F Last Admin: 01/15/17 10:17 Dose: 650 mg Acetaminophen (Tylenol 325mg Tab) 650 mg PO Q6 PRN PRN Reason: Pain, Mild (1-3) Allopurinol (Zyloprim) 100 mg PO DAILY [facility] Last Admin: 01/21/17 08:50 Dose: 100 mg Atorvastatin Calcium (Lipitor) 10 mg PO HS [facility] Last Admin: 01/20/17 21:13 Dose: 10 mg Bisacodyl (Dulcolax) 10 mg [place] DAILY [facility] Last Admin: 01/21/17 08:51 Dose: Not Given Docusate Sodium (Colace) 100 mg PO BID [facility] Last Admin: 01/21/17 08:50 Dose: 100 mg Ferrous Sulfate (Feosol) 325 mg PO TID [facility] Last Admin: 01/21/17 08:50 Dose: 325 mg Linezolid (Zyvox 600mg/300ml D5w) 600 mg in 300 mls @ 150 mls/hr IVPB Q12@0500, 1700 [facility] Last Admin: 01/21/17 05:03 Dose: 150 mls/hr Cefepime HCl 1 gm/ Sodium (Chloride) 100 mls @ 100 mls/hr IVPB Q12@0500,1700 [facility] Last Admin: 01/21/17 04:04 Dose: 100 mls/hr Lactobacillus Acidophilus (Bacid Acidophilus) 1 cap PO BID [facility] Last Admin: 01/21/17 08:49 Dose: 1 cap Lactulose (Enulose) 20 gm PO BID PRN PRN Reason: Constipation Last Admin: 01/14/17 06:10 Dose: 20 gm Losartan Potassium (Cozaar) 100 mg PO DAILY [facility] Last Admin: 01/21/17 08:50 Dose: 100 mg Metoprolol Tartrate (Lopressor) 50 mg PO Q12 [facility] Last Admin: 01/21/17 08:51 Dose: 50 mg Sennosides (Senokot Tab) 8.6 mg PO BID [facility] Last Admin: 01/21/17 08:52 Dose: 8.6 mg Tamsulosin HCl (Flomax) 0.4 mg PO DAILY [facility] Last Admin: 01/21/17 08:50 Dose: 0.4 mg - Labs Labs: 01/18/17 06:15 01/18/17 06:15 - Respiratory Exam Respiratory Exam: Clear to Ausculation Bilateral - Cardiovascular Exam Cardiovascular Exam: REGULAR RHYTHM, +S1, +S2 - Extremities Exam Additional comments: WOUND VAC DRAINING WELL Assessment and Plan - Assessment and Plan (Free Text) Assessment: S/P MULTIPLE LEFT KNEE SURGERIES HYPERTENSION HYPERLIPIDEMIA Plan: CONTINUE LOSARTAN, METOPROLOL, ATORVASTATIN, ANTIBIOTICS CONTINUE WOUND VAC
[2017-01-22] MEDS: Cefepime 1 GM in Sodium Chloride 0.9% 100 ML IVPB SCH ×2 (04:00→17:37)
[2017-01-22] MEDS: Linezolid 600 mg in D5W 300 ml 600 MG/300 ML BAG IVPB SCH ×3 (04:52→17:37)
[2017-01-22] MEDS: Lactobacillus Acidophilus 500 MU Cap PO SCH ×2 (08:31→17:36)
--- NOTE | 2017-01-22 10:25 | CP.PCM.PN ---
Subjective - Date & Time of Evaluation Date of Evaluation: 01/22/17 Time of Evaluation: 10:25 - Subjective Subjective: S- pt ion great spirits; doing well! Objective - Vital Signs/Intake and Output Vital Signs (last 24 hours): Temp Pulse Resp BP Pulse Ox 98.1 F 68 20 140/78 97 01/22/17 10:00 01/22/17 10:00 01/22/17 10:00 01/22/17 10:00 01/22/17 10:00 - Medications Medications: Current Medications Acetaminophen (Tylenol 325mg Tab) 650 mg PO Q6 PRN PRN Reason: Fever >100.4 F Last Admin: 01/15/17 10:17 Dose: 650 mg Acetaminophen (Tylenol 325mg Tab) 650 mg PO Q6 PRN PRN Reason: Pain, Mild (1-3) Allopurinol (Zyloprim) 100 mg PO DAILY [facility] Last Admin: 01/22/17 08:33 Dose: 100 mg Atorvastatin Calcium (Lipitor) 10 mg PO HS [facility] Last Admin: 01/21/17 21:01 Dose: 10 mg Bisacodyl (Dulcolax) 10 mg [place] DAILY [facility] Last Admin: 01/22/17 08:33 Dose: Not Given Docusate Sodium (Colace) 100 mg PO BID [facility] Last Admin: 01/22/17 08:34 Dose: 100 mg Ferrous Sulfate (Feosol) 325 mg PO TID [facility] Last Admin: 01/22/17 08:31 Dose: 325 mg Linezolid (Zyvox 600mg/300ml D5w) 600 mg in 300 mls @ 150 mls/hr IVPB Q12@0500, 1700 [facility] Last Admin: 01/22/17 05:28 Dose: 150 mls/hr Cefepime HCl 1 gm/ Sodium (Chloride) 100 mls @ 100 mls/hr IVPB Q12@0500,1700 [facility] Last Admin: 01/22/17 04:00 Dose: 100 mls/hr Lactobacillus Acidophilus (Bacid Acidophilus) 1 cap PO BID [facility] Last Admin: 01/22/17 08:31 Dose: 1 cap Lactulose (Enulose) 20 gm PO BID PRN PRN Reason: Constipation Last Admin: 01/14/17 06:10 Dose: 20 gm Losartan Potassium (Cozaar) 100 mg PO DAILY [facility] Last Admin: 01/22/17 08:32 Dose: 100 mg Metoprolol Tartrate (Lopressor) 50 mg PO Q12 [facility] Last Admin: 01/22/17 08:33 Dose: 50 mg Sennosides (Senokot Tab) 8.6 mg PO BID [facility] Last Admin: 01/22/17 08:31 Dose: 8.6 mg Tamsulosin HCl (Flomax) 0.4 mg PO DAILY [facility] Last Admin: 01/22/17 08:33 Dose: 0.4 mg - Labs Labs: 01/18/17 06:15 01/18/17 06:15 - Skin Additional comments: Objective systemic- wnl Musculoskekltal stance/gait- defrred L knee drssing dry and intact knee immobilizer intact wound vac draining no deficits Assessment and Plan - Assessment and Plan (Free Text) Assessment: A- s/p incision/drainage L knee wound and applx wound vac P continue strict adherance to knee immobilizer and weight bearing restrictions
--- NOTE | 2017-01-22 13:26 | RAD ---
HISTORY: s/p complex L TKR revision COMPARISON: No prior FINDINGS: BONES: Status post total left knee replacement. No evidence of fracture or dislocation. JOINTS: Normal. No osteoarthritis. SOFT TISSUE: Normal. OTHER FINDINGS: None . IMPRESSION: Status post total left knee replacement. No evidence of fracture or dislocation.
--- NOTE | 2017-01-22 13:34 | CP.PCM.PN ---
Subjective - Date & Time of Evaluation Date of Evaluation: 01/22/17 Time of Evaluation: 12:45 - Subjective Subjective: NO CHEST PAIN OR SOB Objective - Vital Signs/Intake and Output Vital Signs (last 24 hours): Temp Pulse Resp BP Pulse Ox 98.1 F 68 20 140/78 97 01/22/17 10:00 01/22/17 10:00 01/22/17 10:00 01/22/17 10:00 01/22/17 10:00 - Medications Medications: Current Medications Acetaminophen (Tylenol 325mg Tab) 650 mg PO Q6 PRN PRN Reason: Fever >100.4 F Last Admin: 01/15/17 10:17 Dose: 650 mg Acetaminophen (Tylenol 325mg Tab) 650 mg PO Q6 PRN PRN Reason: Pain, Mild (1-3) Allopurinol (Zyloprim) 100 mg PO DAILY [facility] Last Admin: 01/22/17 08:33 Dose: 100 mg Atorvastatin Calcium (Lipitor) 10 mg PO HS [facility] Last Admin: 01/21/17 21:01 Dose: 10 mg Bisacodyl (Dulcolax) 10 mg [place] DAILY [facility] Last Admin: 01/22/17 08:33 Dose: Not Given Docusate Sodium (Colace) 100 mg PO BID [facility] Last Admin: 01/22/17 08:34 Dose: 100 mg Ferrous Sulfate (Feosol) 325 mg PO TID [facility] Last Admin: 01/22/17 12:43 Dose: 325 mg Linezolid (Zyvox 600mg/300ml D5w) 600 mg in 300 mls @ 150 mls/hr IVPB Q12@0500, 1700 [facility] Last Admin: 01/22/17 05:28 Dose: 150 mls/hr Cefepime HCl 1 gm/ Sodium (Chloride) 100 mls @ 100 mls/hr IVPB Q12@0500,1700 [facility] Last Admin: 01/22/17 04:00 Dose: 100 mls/hr Lactobacillus Acidophilus (Bacid Acidophilus) 1 cap PO BID [facility] Last Admin: 01/22/17 08:31 Dose: 1 cap Lactulose (Enulose) 20 gm PO BID PRN PRN Reason: Constipation Last Admin: 01/14/17 06:10 Dose: 20 gm Losartan Potassium (Cozaar) 100 mg PO DAILY [facility] Last Admin: 01/22/17 08:32 Dose: 100 mg Metoprolol Tartrate (Lopressor) 50 mg PO Q12 [facility] Last Admin: 01/22/17 08:33 Dose: 50 mg Sennosides (Senokot Tab) 8.6 mg PO BID [facility] Last Admin: 01/22/17 08:31 Dose: 8.6 mg Tamsulosin HCl (Flomax) 0.4 mg PO DAILY [facility] Last Admin: 01/22/17 08:33 Dose: 0.4 mg - Labs Labs: 01/18/17 06:15 01/18/17 06:15 - Respiratory Exam Respiratory Exam: Clear to Ausculation Bilateral - Cardiovascular Exam Cardiovascular Exam: REGULAR RHYTHM, +S1, +S2 - Additional Findings Additional findings: ORTHOPEDIC NOTE SEEN Assessment and Plan - Assessment and Plan (Free Text) Assessment: MULTIPLE LEFT KNEE SURGERIES MILD CAD HYPERTENSION HYPERLIPIDEMIA Plan: CONTINUE LOSARTAN, METOPROLOL, ATORVASTATIN AND ANTIBIOTICS CONTINUE WOUND VAC
--- NOTE | 2017-01-22 15:07 | RAD ---
HISTORY: s/p ligament repair s/p TKR COMPARISON: No prior FINDINGS: BONES: Normal. No fracture. JOINTS: Bilateral degenerative changes chondrocalcinosis. SOFT TISSUE: Normal. OTHER FINDINGS: None . IMPRESSION: Degenerative changes and osteopenia. No fracture.
[2017-01-23] MEDS: Cefepime 1 GM in Sodium Chloride 0.9% 100 ML IVPB SCH ×2 (04:48→17:00)
[2017-01-23] MEDS: Linezolid 600 mg in D5W 300 ml 600 MG/300 ML BAG IVPB SCH ×2 (05:51→17:01)
[2017-01-23] MEDS: Lactobacillus Acidophilus 500 MU Cap PO SCH ×2 (09:02→17:01)
--- NOTE | 2017-01-23 12:27 | CP.PCM.PN ---
Subjective - Date & Time of Evaluation Date of Evaluation: 01/23/17 Time of Evaluation: 11:10 - Subjective Subjective: NO CHEST PAIN OR SOB AMBULATING IN ROOM AND FEELS GOOD Objective - Vital Signs/Intake and Output Vital Signs (last 24 hours): Temp Pulse Resp BP Pulse Ox 97.9 F 72 20 145/83 98 01/23/17 09:59 01/23/17 09:59 01/23/17 09:59 01/23/17 09:59 01/23/17 09:59 - Medications Medications: Current Medications Acetaminophen (Tylenol 325mg Tab) 650 mg PO Q6 PRN PRN Reason: Fever >100.4 F Last Admin: 01/15/17 10:17 Dose: 650 mg Acetaminophen (Tylenol 325mg Tab) 650 mg PO Q6 PRN PRN Reason: Pain, Mild (1-3) Allopurinol (Zyloprim) 100 mg PO DAILY [facility] Last Admin: 01/23/17 09:03 Dose: 100 mg Atorvastatin Calcium (Lipitor) 10 mg PO HS [facility] Last Admin: 01/22/17 21:26 Dose: 10 mg Bisacodyl (Dulcolax) 10 mg [place] DAILY [facility] Last Admin: 01/23/17 09:03 Dose: Not Given Docusate Sodium (Colace) 100 mg PO BID [facility] Last Admin: 01/23/17 09:02 Dose: 100 mg Ferrous Sulfate (Feosol) 325 mg PO TID [facility] Last Admin: 01/23/17 09:02 Dose: 325 mg Linezolid (Zyvox 600mg/300ml D5w) 600 mg in 300 mls @ 150 mls/hr IVPB Q12@0500, 1700 [facility] Last Admin: 01/23/17 05:51 Dose: 150 mls/hr Cefepime HCl 1 gm/ Sodium (Chloride) 100 mls @ 100 mls/hr IVPB Q12@0500,1700 [facility] Last Admin: 01/23/17 04:48 Dose: 100 mls/hr Lactobacillus Acidophilus (Bacid Acidophilus) 1 cap PO BID [facility] Last Admin: 01/23/17 09:02 Dose: 1 cap Lactulose (Enulose) 20 gm PO BID PRN PRN Reason: Constipation Last Admin: 01/14/17 06:10 Dose: 20 gm Losartan Potassium (Cozaar) 100 mg PO DAILY [facility] Last Admin: 01/23/17 09:03 Dose: 100 mg Metoprolol Tartrate (Lopressor) 50 mg PO Q12 REPLACED BY [facility] Last Admin: 01/23/17 09:02 Dose: 50 mg Sennosides (Senokot Tab) 8.6 mg PO BID REPLACED BY [facility] Last Admin: 01/23/17 09:03 Dose: 8.6 mg Tamsulosin HCl (Flomax) 0.4 mg PO DAILY REPLACED BY [facility] Last Admin: 01/23/17 09:03 Dose: 0.4 mg - Labs Labs: 01/18/17 06:15 01/18/17 06:15 - Respiratory Exam Respiratory Exam: Clear to Ausculation Bilateral - Cardiovascular Exam Cardiovascular Exam: REGULAR RHYTHM, +S1, +S2 Assessment and Plan - Assessment and Plan (Free Text) Assessment: S/P MULTIPLE LEFT KNEE SURGERIES MILD CAD HYPERTENSION HYPERLIPIDEMIA Plan: CONTINUE LOSARTAN, METOPROLOL, ATORVASTATIN AND ANTIBIOTICS CONTINUE PHYSICAL THERAPY WOUND VAC STILL IN PLACE AND DRAINING
[2017-01-24] MEDS: Cefepime 1 GM in Sodium Chloride 0.9% 100 ML IVPB SCH ×2 (04:06→16:29)
[2017-01-24] MEDS: Linezolid 600 mg in D5W 300 ml 600 MG/300 ML BAG IVPB SCH ×2 (05:18→17:17)
[2017-01-24] MEDS: Lactobacillus Acidophilus 500 MU Cap PO SCH ×2 (08:42→16:32)
--- NOTE | 2017-01-24 10:50 | CP.PCM.PN ---
Subjective - Date & Time of Evaluation Date of Evaluation: 01/24/17 Time of Evaluation: 09:15 - Subjective Subjective: NO NEW COMPLAINTS NO CHEST PAIN OR SOB Objective - Vital Signs/Intake and Output Vital Signs (last 24 hours): Temp Pulse Resp BP Pulse Ox 98.2 F 71 20 142/84 97 01/24/17 08:23 01/24/17 08:43 01/24/17 08:23 01/24/17 08:43 01/24/17 08:23 - Medications Medications: Current Medications Acetaminophen (Tylenol 325mg Tab) 650 mg PO Q6 PRN PRN Reason: Fever >100.4 F Last Admin: 01/15/17 10:17 Dose: 650 mg Acetaminophen (Tylenol 325mg Tab) 650 mg PO Q6 PRN PRN Reason: Pain, Mild (1-3) Allopurinol (Zyloprim) 100 mg PO DAILY [facility] Last Admin: 01/24/17 08:44 Dose: 100 mg Atorvastatin Calcium (Lipitor) 10 mg PO HS [facility] Last Admin: 01/23/17 21:00 Dose: 10 mg Bisacodyl (Dulcolax) 10 mg [place] DAILY [facility] Last Admin: 01/24/17 08:43 Dose: Not Given Docusate Sodium (Colace) 100 mg PO BID [facility] Last Admin: 01/24/17 08:42 Dose: 100 mg Ferrous Sulfate (Feosol) 325 mg PO TID [facility] Last Admin: 01/24/17 08:42 Dose: 325 mg Linezolid (Zyvox 600mg/300ml D5w) 600 mg in 300 mls @ 150 mls/hr IVPB Q12@0500, 1700 [facility] Last Admin: 01/24/17 05:18 Dose: 150 mls/hr Cefepime HCl 1 gm/ Sodium (Chloride) 100 mls @ 100 mls/hr IVPB Q12@0500,1700 [facility] Last Admin: 01/24/17 04:06 Dose: 100 mls/hr Lactobacillus Acidophilus (Bacid Acidophilus) 1 cap PO BID [facility] Last Admin: 01/24/17 08:42 Dose: 1 cap Lactulose (Enulose) 20 gm PO BID PRN PRN Reason: Constipation Last Admin: 01/14/17 06:10 Dose: 20 gm Losartan Potassium (Cozaar) 100 mg PO DAILY [facility] Last Admin: 01/24/17 08:42 Dose: 100 mg Metoprolol Tartrate (Lopressor) 50 mg PO Q12 [facility] Last Admin: 01/24/17 08:43 Dose: 50 mg Sennosides (Senokot Tab) 8.6 mg PO BID [facility] Last Admin: 01/24/17 08:44 Dose: 8.6 mg Tamsulosin HCl (Flomax) 0.4 mg PO DAILY [facility] Last Admin: 01/24/17 08:42 Dose: 0.4 mg - Labs Labs: 01/18/17 06:15 01/18/17 06:15 - Respiratory Exam Respiratory Exam: Clear to Ausculation Bilateral - Cardiovascular Exam Cardiovascular Exam: REGULAR RHYTHM, +S1, +S2 Assessment and Plan - Assessment and Plan (Free Text) Assessment: S/P MULTIPLE LEFT KNEE SURGERIES MILD CAD HYPERTENSION HYPERLIPIDEMIA Plan: CONTINUE METOPROLOL, LOSARTA, ATORVASTATIN, IV ANTIBIOTICS CONTINUE WOUND VAC DISCHARGE TO SUBACUTE FACILITY TO COMPLETE IV ANTIBIOTIC REGIMEN WHEN CLEARED BY ORTHOPEDICS
[2017-01-25] MEDS: Cefepime 1 GM in Sodium Chloride 0.9% 100 ML IVPB SCH ×2 (04:45→16:51)
[2017-01-25] MEDS: Linezolid 600 mg in D5W 300 ml 600 MG/300 ML BAG IVPB SCH ×2 (04:46→16:51)
--- NOTE | 2017-01-25 10:17 | CP.PCM.PN ---
Subjective - Date & Time of Evaluation Date of Evaluation: 01/25/17 Time of Evaluation: 09:45 - Subjective Subjective: NO CHEST PAIN OR SOB Objective - Vital Signs/Intake and Output Vital Signs (last 24 hours): Temp Pulse Resp BP Pulse Ox 98.1 F 73 20 153/80 H 99 01/25/17 07:46 01/25/17 08:47 01/25/17 07:46 01/25/17 08:47 01/25/17 07:46 - Medications Medications: Current Medications Acetaminophen (Tylenol 325mg Tab) 650 mg PO Q6 PRN PRN Reason: Fever >100.4 F Last Admin: 01/15/17 10:17 Dose: 650 mg Acetaminophen (Tylenol 325mg Tab) 650 mg PO Q6 PRN PRN Reason: Pain, Mild (1-3) Allopurinol (Zyloprim) [address] [facility] Last Admin: 01/25/17 08:48 Dose: 100 mg Atorvastatin Calcium (Lipitor) [address] [facility] Last Admin: 01/24/17 21:16 Dose: 10 mg Bisacodyl (Dulcolax) [address] [facility] Last Admin: 01/25/17 08:48 Dose: Not Given Docusate Sodium (Colace) [address] [facility] Last Admin: 01/25/17 08:48 Dose: 100 mg Ferrous Sulfate (Feosol) [address] [facility] Last Admin: 01/25/17 08:46 Dose: 325 mg Linezolid (Zyvox 600mg/300ml D5w) 600 mg in 300 mls @ 150 mls/hr IVPB Q12@0500, 1700 [facility] Last Admin: 01/25/17 04:46 Dose: 150 mls/hr Cefepime HCl 1 gm/ Sodium (Chloride) 100 mls @ 100 mls/hr IVPB Q12@0500,1700 [facility] Last Admin: 01/25/17 04:45 Dose: 100 mls/hr Lactobacillus Acidophilus (Bacid Acidophilus) [address] [facility] Last Admin: 01/24/17 16:32 Dose: 1 cap Lactulose (Enulose) 20 gm PO BID PRN PRN Reason: Constipation Last Admin: 01/14/17 06:10 Dose: 20 gm Losartan Potassium (Cozaar) [address] [facility] Last Admin: 01/25/17 08:47 Dose: 100 mg Metoprolol Tartrate (Lopressor) [address] [facility] Last Admin: 01/25/17 08:46 Dose: 50 mg Sennosides (Senokot Tab) 8.[address] [facility] Last Admin: 01/25/17 08:46 Dose: 8.6 mg Tamsulosin HCl (Flomax) 0.[address] [facility] Last Admin: 01/25/17 08:47 Dose: 0.4 mg - Labs Labs: 01/18/17 06:15 01/18/17 06:15 - Respiratory Exam Respiratory Exam: Clear to Ausculation Bilateral - Cardiovascular Exam Cardiovascular Exam: REGULAR RHYTHM, +S1, +S2 Assessment and Plan - Assessment and Plan (Free Text) Assessment: S/P MULTIPLE LEFT KNEE SURGERIES MILD CAD HYPERTENSION HYPERLIPIDEMIA Plan: CONTINUE METOPROLOL, LOSARTAN, ATORVASTATIN AND FEOSOL CONTINUE WOUND VAC FOR DISCHARGE TO SUBACUTE FACILITY TO FINISH IV ANTIBIOTICS REGIMEN ONCE CLEARED BY ORTHOPEDIC SURGERY
[2017-01-25] MEDS: Lactobacillus Acidophilus 500 MU Cap PO SCH ×2 (12:32→16:50)
--- NOTE | 2017-01-25 13:31 | CP.PCM.PN ---
Subjective - Date & Time of Evaluation Date of Evaluation: 01/25/17 Time of Evaluation: 13:15 - Subjective Subjective: Hospitalist Progress Note (Patient was seen and examined at 1:15 PM 01/25/17) Very pleasant 76 year old male who is S/P Left TKR on 12/13/16. He was discharged from TCU on 12/24/16 and afterwards fell down onto his left knee the very next day from his wheel chair leading to surgical wound dehiscence. He was admitted [facility] in [place], [place] where he received 3 units of PRBC and a wound vac was placed. He was then transferred to [facility]. He underwent Left Patella/Ligament Reconstruction and wound vac placement on 01/10/17 Currently upon FULL ROS: NO chest pain, NO palpitations, NO SOB/Cough/Wheezing, NO Abdominal Pain, NO n/v /d/c, NO burning/pain with urinations, NO lightheadedness/dizziness, NO headaches, NO new changes in vision/eye pain, NO new changes in hearing/ear pain , NO paresthesias Exam: HEENT: NCA, EOMI, PERRLA, NO lymphadenopathy, NO thyromegaly, NO pharyngeal erythema/exudate, Nasal Turbinates are moist/nonerythematous/nonedematous, Oral mucosa is moist Cardio: NS1 and NS2, NO M/R/G Resp: CTA B/L, NO R/R/W GI: BSx4, Soft, NT, ND, NO HSM, NO guarding/rebound tenderness Neuro: CN II through XII Extremities: Pulses are strong and equal, Capillary Refill is 2 seconds, 1+ Pitting Edema involving the Left entire Left Leg which has Wound Vac In Place ( wound is not visible under the wound vac) Assessment and Plan: 1). Left Knee Wound Dehiscence and S/P Left Patella/Ligament Reconstruction and wound vac placement on 01/10/17. Wound Culture + VRE and Psuedomonas ID Dr. Rock Quintero Linezolid 600 mg IV 3x/day Maxipime 1 gm IV 2x/day Awaiting New Wound Vac placement/arrival 2). Hx HTN Losartan 100 mg PO 1x/day Metoprolol 50 mg PO Q12H Norvasc 5 mg PO 1x/day added for elevated Blood Pressure 3). Hx Acute Blood Loss Anemia Please see HPI above Feosol 325 mg PO TID F/U CBC 01/26/17 4). Hx BPH Flomax 0.4 mg PO 1x/day 5). Hx Gout Allopurinol 100 mg PO 1x/day 6). Hx HLD Atorvastatin 10 mg PO 1x/day 7). Hx Constipation Dulcolax 10 mg [place] Daily Colace 100 mg PO 2x/day 8). Prophylactic Measures Tylenol 650 mg PO Q6H PRN Fever and Mild Pain Lactobacillus Sennisides Objective - Vital Signs/Intake and Output Vital Signs (last 24 hours): Temp Pulse Resp BP Pulse Ox 98.1 F 73 20 153/80 H 99 01/25/17 10:00 01/25/17 10:00 01/25/17 10:00 01/25/17 10:00 01/25/17 10:00 - Medications Medications: Current Medications Acetaminophen (Tylenol 325mg Tab) 650 mg PO Q6 PRN PRN Reason: Fever >100.4 F Last Admin: 01/15/17 10:17 Dose: 650 mg Acetaminophen (Tylenol 325mg Tab) 650 mg PO Q6 PRN PRN Reason: Pain, Mild (1-3) Allopurinol (Zyloprim) 100 mg PO DAILY [facility] Last Admin: 01/25/17 08:48 Dose: 100 mg Amlodipine Besylate (Norvasc) 5 mg PO DAILY [facility] Atorvastatin Calcium (Lipitor) 10 mg PO HS [facility] Last Admin: 01/24/17 21:16 Dose: 10 mg Bisacodyl (Dulcolax) 10 mg [place] DAILY [facility] Last Admin: 01/25/17 08:48 Dose: Not Given Docusate Sodium (Colace) 100 mg PO BID [facility] Last Admin: 01/25/17 08:48 Dose: 100 mg Ferrous Sulfate (Feosol) 325 mg PO TID [facility] Last Admin: 01/25/17 12:32 Dose: 325 mg Linezolid (Zyvox 600mg/300ml D5w) 600 mg in 300 mls @ 150 mls/hr IVPB Q12@0500, 1700 [facility] Last Admin: 01/25/17 04:46 Dose: 150 mls/hr Cefepime HCl 1 gm/ Sodium (Chloride) 100 mls @ 100 mls/hr IVPB Q12@0500,1700 [facility] Last Admin: 01/25/17 04:45 Dose: 100 mls/hr Lactobacillus Acidophilus (Bacid Acidophilus) 1 cap PO BID [facility] Last Admin: 01/25/17 12:32 Dose: 1 cap Lactulose (Enulose) 20 gm PO BID PRN PRN Reason: Constipation Last Admin: 01/14/17 06:10 Dose: 20 gm Losartan Potassium (Cozaar) 100 mg PO DAILY [facility] Last Admin: 01/25/17 08:47 Dose: 100 mg Metoprolol Tartrate (Lopressor) 50 mg PO Q12 [facility] Last Admin: 01/25/17 08:46 Dose: 50 mg Sennosides (Senokot Tab) 8.6 mg PO BID [facility] Last Admin: 01/25/17 08:46 Dose: 8.6 mg Tamsulosin HCl (Flomax) 0.4 mg PO DAILY [facility] Last Admin: 01/25/17 08:47 Dose: 0.4 mg - Labs Labs: 01/18/17 06:15 01/18/17 06:15
[2017-01-26] MEDS: Linezolid 600 mg in D5W 300 ml 600 MG/300 ML BAG IVPB SCH ×3 (04:24→16:18)
[2017-01-26] MEDS: Cefepime 1 GM in Sodium Chloride 0.9% 100 ML IVPB SCH ×2 (04:26→16:18)
[2017-01-26 07:08] LABS: BASO % 0.6 % (0.0-2.0); EOS # 0.4 K/uL (0.0-0.7); EOS % 7.5 % (0.0-4.0); HEMATOCRIT 28.7 % (35.0-51.0); LYMPH # 1.2 K/uL (1.0-4.3); LYMPH % 22.9 % (20.0-40.0); MEAN CELL VOLUME 85.3 fl (80.0-94.0); MEAN CORPUSCULAR HGB CONC 32.9 g/dL (33.0-37.0); MEAN PLATELET VOLUME 7.7 fl (7.2-11.7); MONO # 0.6 K/uL (0.0-0.8); MONO % 12.2 % (0.0-10.0); NEUT # 2.9 K/uL (1.8-7.0); NEUT % 56.8 % (50.0-75.0); NRBC % 0.1 % (0.0-0.0); RED CELL DISTRIBUTION WIDTH 17.5 % (11.5-14.5); WHITE BLOOD COUNT 5.1 K/uL (4.8-10.8)
[2017-01-26 07:19] LABS: ALB/GLOB RATIO 1.1 (1.0-2.1); ALKALINE PHOSPHATASE 80 U/L (38-126); ALT/SGPT 30 U/L (21-72); AST/SGOT 19 U/L (17-59); BILIRUBIN,TOTAL 0.3 mg/dl (0.2-1.3); BLOOD UREA NITROGEN 10 mg/dl (9-20); CALCIUM 9.1 mg/dL (8.4-10.2); CARBON DIOXIDE 26 mmol/L (22-30); CHLORIDE 107 mmol/L (98-107); GFR AFRICAN-AMERICAN > 60; GLUCOSE,RANDOM 95 mg/dL (75-110); POTASSIUM 3.8 MMOL/L (3.6-5.0); SODIUM 138 mmol/l (132-148); TOTAL PROTEIN 5.3 G/DL (6.3-8.2)
[2017-01-26] MEDS: Lactobacillus Acidophilus 500 MU Cap PO SCH ×2 (09:06→16:16)
--- NOTE | 2017-01-26 13:09 | CP.PCM.PN ---
Subjective - Date & Time of Evaluation Date of Evaluation: 01/26/17 Time of Evaluation: 10:45 - Subjective Subjective: NO NEW COMPLAINTS LEFT KNEE FEELS GOOD Objective - Vital Signs/Intake and Output Vital Signs (last 24 hours): Temp Pulse Resp BP Pulse Ox 98.6 F 66 20 133/79 100 01/26/17 08:09 01/26/17 09:09 01/26/17 08:09 01/26/17 09:09 01/26/17 08:09 - Medications Medications: Current Medications Acetaminophen (Tylenol 325mg Tab) 650 mg PO Q6 PRN PRN Reason: Fever >100.4 F Last Admin: 01/15/17 10:17 Dose: 650 mg Acetaminophen (Tylenol 325mg Tab) 650 mg PO Q6 PRN PRN Reason: Pain, Mild (1-3) Allopurinol (Zyloprim) 100 mg PO DAILY [facility] Last Admin: 01/26/17 09:13 Dose: 100 mg Amlodipine Besylate (Norvasc) 5 mg PO DAILY [facility] Last Admin: 01/26/17 09:09 Dose: 5 mg Atorvastatin Calcium (Lipitor) 10 mg PO HS [facility] Last Admin: 01/25/17 21:32 Dose: 10 mg Bisacodyl (Dulcolax) 10 mg [place] DAILY [facility] Last Admin: 01/26/17 09:13 Dose: Not Given Docusate Sodium (Colace) 100 mg PO BID [facility] Last Admin: 01/26/17 09:06 Dose: 100 mg Ferrous Sulfate (Feosol) 325 mg PO TID [facility] Last Admin: 01/26/17 12:27 Dose: 325 mg Linezolid (Zyvox 600mg/300ml D5w) 600 mg in 300 mls @ 150 mls/hr IVPB Q12@0500, 1700 [facility] Last Admin: 01/26/17 04:29 Dose: 150 mls/hr Cefepime HCl 1 gm/ Sodium (Chloride) 100 mls @ 100 mls/hr IVPB Q12@0500,1700 [facility] Last Admin: 01/26/17 04:26 Dose: 100 mls/hr Lactobacillus Acidophilus (Bacid Acidophilus) 1 cap PO BID [facility] Last Admin: 01/26/17 09:06 Dose: 1 cap Lactulose (Enulose) 20 gm PO BID PRN PRN Reason: Constipation Last Admin: 01/14/17 06:10 Dose: 20 gm Losartan Potassium (Cozaar) 100 mg PO DAILY [facility] Last Admin: 01/26/17 09:06 Dose: 100 mg Metoprolol Tartrate (Lopressor) 50 mg PO Q12 [facility] Last Admin: 01/26/17 09:08 Dose: 50 mg Sennosides (Senokot Tab) 8.6 mg PO BID [facility] Last Admin: 01/26/17 09:12 Dose: 8.6 mg Tamsulosin HCl (Flomax) 0.4 mg PO DAILY [facility] Last Admin: 01/26/17 09:08 Dose: 0.4 mg - Labs Labs: 01/26/17 06:15 01/26/17 06:15 - Respiratory Exam Respiratory Exam: Clear to Ausculation Bilateral - Cardiovascular Exam Cardiovascular Exam: REGULAR RHYTHM, +S1, +S2 Assessment and Plan - Assessment and Plan (Free Text) Assessment: S/P MULTIPLE LEFT KNEE SURGERIES MILD CAD HYPERTENSION HYPERLIPIDEMIA Plan: CONTINUE LOSARTAN, METOPROLOL, ATORVASTATIN AND ANTIBIOTICS PATIENT DISCUSSED WITH DR NATION
[2017-01-27] MEDS: Linezolid 600 mg in D5W 300 ml 600 MG/300 ML BAG IVPB SCH ×2 (05:07→17:07)
[2017-01-27] MEDS: Cefepime 1 GM in Sodium Chloride 0.9% 100 ML IVPB SCH ×2 (05:07→17:06)
[2017-01-27] MEDS: Lactobacillus Acidophilus 500 MU Cap PO SCH ×2 (08:24→17:04)
--- NOTE | 2017-01-27 09:12 | CP.PCM.PN ---
Subjective - Date & Time of Evaluation Date of Evaluation: 01/27/17 Time of Evaluation: 08:30 - Subjective Subjective: NO NEW COMPLAINTS Objective - Vital Signs/Intake and Output Vital Signs (last 24 hours): Temp Pulse Resp BP Pulse Ox 98.2 F 61 20 146/76 99 01/27/17 07:52 01/27/17 08:27 01/27/17 07:52 01/27/17 08:27 01/27/17 07:52 - Medications Medications: Current Medications Acetaminophen (Tylenol 325mg Tab) 650 mg PO Q6 PRN PRN Reason: Fever >100.4 F Last Admin: 01/15/17 10:17 Dose: 650 mg Acetaminophen (Tylenol 325mg Tab) 650 mg PO Q6 PRN PRN Reason: Pain, Mild (1-3) Last Admin: 01/26/17 21:20 Dose: 650 mg Allopurinol (Zyloprim) 100 mg PO DAILY [facility] Last Admin: 01/27/17 08:26 Dose: 100 mg Amlodipine Besylate (Norvasc) 5 mg PO DAILY [facility] Last Admin: 01/27/17 08:26 Dose: 5 mg Atorvastatin Calcium (Lipitor) 10 mg PO HS [facility] Last Admin: 01/26/17 21:19 Dose: 10 mg Bisacodyl (Dulcolax) 10 mg [place] DAILY [facility] Last Admin: 01/27/17 08:27 Dose: Not Given Docusate Sodium (Colace) 100 mg PO BID [facility] Last Admin: 01/27/17 08:24 Dose: 100 mg Ferrous Sulfate (Feosol) 325 mg PO TID [facility] Last Admin: 01/27/17 08:25 Dose: 325 mg Linezolid (Zyvox 600mg/300ml D5w) 600 mg in 300 mls @ 150 mls/hr IVPB Q12@0500, 1700 [facility] Last Admin: 01/27/17 05:07 Dose: 150 mls/hr Cefepime HCl 1 gm/ Sodium (Chloride) 100 mls @ 100 mls/hr IVPB Q12@0500,1700 [facility] Last Admin: 01/27/17 05:07 Dose: 100 mls/hr Lactobacillus Acidophilus (Bacid Acidophilus) 1 cap PO BID [facility] Last Admin: 01/27/17 08:24 Dose: 1 cap Lactulose (Enulose) 20 gm PO BID PRN PRN Reason: Constipation Last Admin: 01/14/17 06:10 Dose: 20 gm Losartan Potassium (Cozaar) 100 mg PO DAILY [facility] Last Admin: 01/27/17 08:27 Dose: 100 mg Metoprolol Tartrate (Lopressor) 50 mg PO Q12 [facility] Last Admin: 01/27/17 08:25 Dose: 50 mg Sennosides (Senokot Tab) 8.6 mg PO BID [facility] Last Admin: 01/27/17 08:24 Dose: 8.6 mg Tamsulosin HCl (Flomax) 0.4 mg PO DAILY [facility] Last Admin: 01/27/17 08:24 Dose: 0.4 mg - Labs Labs: 01/26/17 06:15 01/26/17 06:15 - Respiratory Exam Respiratory Exam: Clear to Ausculation Bilateral - Cardiovascular Exam Cardiovascular Exam: REGULAR RHYTHM, +S1, +S2 Assessment and Plan - Assessment and Plan (Free Text) Assessment: S/P MULTIPLE LEFT KNEE SURGERIES MILD CAD HYPERTENSION HYPERLIPIDEMIA Plan: CONTINUE METOPROLOL, LOSARTAN AND ATORVASTATIN CONTINUE REHAB FOR DISCHARGE SOON PATIENT DISCUSSED WITH DR NATION
[2017-01-27] MEDS ORDERED: Hydrogen Peroxide 3% Soln (480ml) TP ONE (15:41)
--- NOTE | 2017-01-27 16:01 | CP.PCM.PN ---
Subjective - Date & Time of Evaluation Date of Evaluation: 01/27/17 Time of Evaluation: 15:55 - Subjective Subjective: S- pt in good spirtis with no discomfort Objective - Vital Signs/Intake and Output Vital Signs (last 24 hours): Temp Pulse Resp BP Pulse Ox 98.2 F 61 20 146/76 99 01/27/17 10:00 01/27/17 10:00 01/27/17 10:00 01/27/17 10:00 01/27/17 10:00 - Medications Medications: Current Medications Acetaminophen (Tylenol 325mg Tab) 650 mg PO Q6 PRN PRN Reason: Fever >100.4 F Last Admin: 01/15/17 10:17 Dose: 650 mg Acetaminophen (Tylenol 325mg Tab) 650 mg PO Q6 PRN PRN Reason: Pain, Mild (1-3) Last Admin: 01/26/17 21:20 Dose: 650 mg Allopurinol (Zyloprim) 100 mg PO DAILY [facility] Last Admin: 01/27/17 08:26 Dose: 100 mg Amlodipine Besylate (Norvasc) 5 mg PO DAILY [facility] Last Admin: 01/27/17 08:26 Dose: 5 mg Atorvastatin Calcium (Lipitor) 10 mg PO HS [facility] Last Admin: 01/26/17 21:19 Dose: 10 mg Bisacodyl (Dulcolax) 10 mg [place] DAILY [facility] Last Admin: 01/27/17 08:27 Dose: Not Given Docusate Sodium (Colace) 100 mg PO BID [facility] Last Admin: 01/27/17 08:24 Dose: 100 mg Ferrous Sulfate (Feosol) 325 mg PO TID [facility] Last Admin: 01/27/17 14:20 Dose: 325 mg Linezolid (Zyvox 600mg/300ml D5w) 600 mg in 300 mls @ 150 mls/hr IVPB Q12@0500, 1700 [facility] Last Admin: 01/27/17 05:07 Dose: 150 mls/hr Cefepime HCl 1 gm/ Sodium (Chloride) 100 mls @ 100 mls/hr IVPB Q12@0500,1700 [facility] Last Admin: 01/27/17 05:07 Dose: 100 mls/hr Lactobacillus Acidophilus (Bacid Acidophilus) 1 cap PO BID [facility] Last Admin: 01/27/17 08:24 Dose: 1 cap Lactulose (Enulose) 20 gm PO BID PRN PRN Reason: Constipation Last Admin: 01/14/17 06:10 Dose: 20 gm Losartan Potassium (Cozaar) 100 mg PO DAILY [facility] Last Admin: 01/27/17 08:27 Dose: 100 mg Metoprolol Tartrate (Lopressor) 50 mg PO Q12 [facility] Last Admin: 01/27/17 08:25 Dose: 50 mg Sennosides (Senokot Tab) 8.6 mg PO BID [facility] Last Admin: 01/27/17 08:24 Dose: 8.6 mg Tamsulosin HCl (Flomax) 0.4 mg PO DAILY [facility] Last Admin: 01/27/17 08:24 Dose: 0.4 mg - Labs Labs: 01/26/17 06:15 01/26/17 06:15 - Additional Findings Additional findings: Objective afebirle VSS excellent progress no deficits wound stilld [id number] serous/ non- prudent m,aterial; wopund improved but still are of excoriation Assessment and Plan - Assessment and Plan (Free Text) Assessment: A- s/p wound debriedement and applx wound vac P- no evidence for deep sepsis pt still immobilized s.p patella ligament repair P- continue NWB L with crutches DR Blake on plastic surgical consult
[2017-01-27] MEDS ORDERED: DAPTOmycin 500 mg Inj (Cubicin) IVP SCH (19:00)
--- NOTE | 2017-01-27 19:02 | CP.PCM.PN ---
Subjective - Date & Time of Evaluation Date of Evaluation: 01/27/17 Time of Evaluation: 18:58 - Subjective Subjective: I D NOTE DISCUSSED C EVIDENCE OF INFECTION HAVE D/MAREN ZYVOX,STARTED DAPTOMYCIN CPK ORDERED INCREASED DOSE OF MAXIPEME TO 2 GM Q12H Objective - Vital Signs/Intake and Output Vital Signs (last 24 hours): Temp Pulse Resp BP Pulse Ox 98.2 F 76 20 153/90 H 96 01/27/17 16:05 01/27/17 16:05 01/27/17 16:05 01/27/17 16:05 01/27/17 16:05 - Medications Medications: Current Medications Acetaminophen (Tylenol 325mg Tab) 650 mg PO Q6 PRN PRN Reason: Fever >100.4 F Last Admin: 01/15/17 10:17 Dose: 650 mg Acetaminophen (Tylenol 325mg Tab) 650 mg PO Q6 PRN PRN Reason: Pain, Mild (1-3) Last Admin: 01/26/17 21:20 Dose: 650 mg Allopurinol (Zyloprim) 100 mg PO DAILY [facility] Last Admin: 01/27/17 08:26 Dose: 100 mg Amlodipine Besylate (Norvasc) 5 mg PO DAILY [facility] Last Admin: 01/27/17 08:26 Dose: 5 mg Atorvastatin Calcium (Lipitor) 10 mg PO HS [facility] Last Admin: 01/26/17 21:19 Dose: 10 mg Bisacodyl (Dulcolax) 10 mg [place] DAILY [facility] Last Admin: 01/27/17 08:27 Dose: Not Given Daptomycin (Cubicin) 700 mg 6 mg/kg (700 mg) IVP Q24H [facility] Stop: 02/01/17 19:01 Docusate Sodium (Colace) 100 mg PO BID [facility] Last Admin: 01/27/17 17:04 Dose: 100 mg Ferrous Sulfate (Feosol) 325 mg PO TID [facility] Last Admin: 01/27/17 17:04 Dose: 325 mg Cefepime HCl 2 gm/ Sodium (Chloride) 100 mls @ 100 mls/hr IVPB Q12@0500,1700 [facility] Lactobacillus Acidophilus (Bacid Acidophilus) 1 cap PO BID [facility] Last Admin: 01/27/17 17:04 Dose: 1 cap Lactulose (Enulose) 20 gm PO BID PRN PRN Reason: Constipation Last Admin: 01/14/17 06:10 Dose: 20 gm Losartan Potassium (Cozaar) 100 mg PO DAILY [facility] Last Admin: 01/27/17 08:27 Dose: 100 mg Metoprolol Tartrate (Lopressor) 50 mg PO Q12 [facility] Last Admin: 01/27/17 08:25 Dose: 50 mg Sennosides (Senokot Tab) 8.6 mg PO BID [facility] Last Admin: 01/27/17 17:04 Dose: 8.6 mg Tamsulosin HCl (Flomax) 0.4 mg PO DAILY [facility] Last Admin: 01/27/17 08:24 Dose: 0.4 mg - Labs Labs: 01/26/17 06:15 01/26/17 06:15
--- NOTE | 2017-01-27 19:15 | CP.PCM.PN ---
Subjective - Date & Time of Evaluation Date of Evaluation: 01/27/17 Time of Evaluation: 17:00 - Subjective Subjective: Pt seen and examined. Denied any complaint. Objective - Vital Signs/Intake and Output Vital Signs (last 24 hours): Temp Pulse Resp BP Pulse Ox 98.2 F 76 20 153/90 H 96 01/27/17 16:05 01/27/17 16:05 01/27/17 16:05 01/27/17 16:05 01/27/17 16:05 - Medications Medications: Current Medications Acetaminophen (Tylenol 325mg Tab) 650 mg PO Q6 PRN PRN Reason: Fever >100.4 F Last Admin: 01/15/17 10:17 Dose: 650 mg Acetaminophen (Tylenol 325mg Tab) 650 mg PO Q6 PRN PRN Reason: Pain, Mild (1-3) Last Admin: 01/26/17 21:20 Dose: 650 mg Allopurinol (Zyloprim) 100 mg PO DAILY [facility] Last Admin: 01/27/17 08:26 Dose: 100 mg Amlodipine Besylate (Norvasc) 5 mg PO DAILY [facility] Last Admin: 01/27/17 08:26 Dose: 5 mg Atorvastatin Calcium (Lipitor) 10 mg PO HS [facility] Last Admin: 01/26/17 21:19 Dose: 10 mg Bisacodyl (Dulcolax) 10 mg [place] DAILY [facility] Last Admin: 01/27/17 08:27 Dose: Not Given Daptomycin (Cubicin) 700 mg 6 mg/kg (700 mg) IVP Q24H [facility] Stop: 02/01/17 19:01 Docusate Sodium (Colace) 100 mg PO BID [facility] Last Admin: 01/27/17 17:04 Dose: 100 mg Ferrous Sulfate (Feosol) 325 mg PO TID [facility] Last Admin: 01/27/17 17:04 Dose: 325 mg Cefepime HCl 2 gm/ Sodium (Chloride) 100 mls @ 100 mls/hr IVPB Q12@0500,1700 [facility] Lactobacillus Acidophilus (Bacid Acidophilus) 1 cap PO BID [facility] Last Admin: 01/27/17 17:04 Dose: 1 cap Lactulose (Enulose) 20 gm PO BID PRN PRN Reason: Constipation Last Admin: 01/14/17 06:10 Dose: 20 gm Losartan Potassium (Cozaar) 100 mg PO DAILY [facility] Last Admin: 01/27/17 08:27 Dose: 100 mg Metoprolol Tartrate (Lopressor) 50 mg PO Q12 [facility] Last Admin: 01/27/17 08:25 Dose: 50 mg Sennosides (Senokot Tab) 8.6 mg PO BID [facility] Last Admin: 01/27/17 17:04 Dose: 8.6 mg Tamsulosin HCl (Flomax) 0.4 mg PO DAILY [facility] Last Admin: 01/27/17 08:24 Dose: 0.4 mg - Labs Labs: 01/26/17 06:15 01/26/17 06:15 - Constitutional Appears: No Acute Distress - Head Exam Head Exam: ATRAUMATIC - Eye Exam Eye Exam: absent: Scleral icterus - ENT Exam ENT Exam: Mucous Membranes Moist - Neck Exam Neck Exam: absent: Meningismus - Respiratory Exam Respiratory Exam: absent: Rhonchi, Wheezes, Respiratory Distress - Cardiovascular Exam Cardiovascular Exam: REGULAR RHYTHM, +S1, +S2 - GI/Abdominal Exam GI & Abdominal Exam: Soft. absent: Tenderness - Rectal Exam Rectal Exam: Deferred - Extremities Exam Extremities Exam: Pedal Edema. absent: Joint Swelling (left knee swollen with wound vac still actively draining) - Neurological Exam Neurological Exam: Alert, Oriented x3 - Psychiatric Exam Psychiatric exam: Normal Affect - Skin Skin Exam: Dry, Intact Assessment and Plan - Assessment and Plan (Free Text) Assessment: 76 yo male with history of OA, LEONARDO, HTN, HLD, Renal Insufficiency and BPH had revision of left TKR on 12/13/2016 and was discharged from TCU on 12/24/2016. The next day patient fell from his wheelchair after hitting a bump in the street injuring his left knee and causing the wound to open. He had large amount of bleeding and was admitted at [facility] where he received 3 units of PRBC. Wound Vac and Hemovac were placed. He was later transferred to [facility] for further management since his orthopedist works here. Dr Blake, plastic surgeon, was consulted and recommended patellar ligament repair and primary wound closure. He underwent Left Patella/Ligament Reconstruction and wound vac placement on 1). Left Knee Wound Dehiscence and S/P Left Patella/Ligament Reconstruction and wound vac placement on 01/10/17. Wound Culture + VRE and Psuedomonas ID Dr. S. Manocchio Linezolid 600 mg IV 3x/day Maxipime 1 gm IV 2x/day Awaiting New Wound Vac placement/arrival 2). HTN Losartan 100 mg PO 1x/day Metoprolol 50 mg PO Q12H Norvasc 5 mg PO 1x/day added for elevated Blood Pressure 3). Acute Blood Loss Anemia Feosol 325 mg PO TID Hgb stable: 9.4 4). BPH Flomax 0.4 mg PO 1x/day 5). Gout Allopurinol 100 mg PO 1x/day 6). HLD Atorvastatin 10 mg PO 1x/day
[2017-01-27] MEDS ORDERED: DAPTOmycin 700 MG in Sodium Chloride 0.9% 100 ML IV SCH (21:00)
[2017-01-27] MEDS: DAPTOmycin 700 MG in Sodium Chloride 0.9% 100 ML IV SCH (21:48)
[2017-01-28] MEDS: Cefepime 2 GM in Sodium Chloride 0.9% 100 ML IVPB SCH ×2 (05:49→16:58)
[2017-01-28] MEDS: Lactobacillus Acidophilus 500 MU Cap PO SCH ×2 (08:42→16:57)
[2017-01-28 08:43] LABS: BLOOD UREA NITROGEN 13 mg/dl (9-20); CALCIUM 9.5 mg/dL (8.4-10.2); CARBON DIOXIDE 24 mmol/L (22-30); CHLORIDE 107 mmol/L (98-107); GFR AFRICAN-AMERICAN > 60; GLUCOSE,RANDOM 89 mg/dL (75-110); SODIUM 138 mmol/l (132-148)
--- NOTE | 2017-01-28 09:25 | CP.PCM.PN ---
Subjective - Date & Time of Evaluation Date of Evaluation: 01/28/17 Time of Evaluation: 08:30 - Subjective Subjective: NO NEW COMPLAINTS NO CHEST PAIN OR SOB Objective - Vital Signs/Intake and Output Vital Signs (last 24 hours): Temp Pulse Resp BP Pulse Ox 98.2 F 72 20 171/96 H 98 01/28/17 08:20 01/28/17 08:44 01/28/17 08:20 01/28/17 08:44 01/28/17 08:20 - Medications Medications: Current Medications Acetaminophen (Tylenol 325mg Tab) 650 mg PO Q6 PRN PRN Reason: Fever >100.4 F Last Admin: 01/15/17 10:17 Dose: 650 mg Acetaminophen (Tylenol 325mg Tab) 650 mg PO Q6 PRN PRN Reason: Pain, Mild (1-3) Last Admin: 01/26/17 21:20 Dose: 650 mg Allopurinol (Zyloprim) 100 mg PO DAILY [facility] Last Admin: 01/28/17 08:43 Dose: 100 mg Amlodipine Besylate (Norvasc) 5 mg PO DAILY [facility] Last Admin: 01/28/17 08:44 Dose: 5 mg Atorvastatin Calcium (Lipitor) 10 mg PO HS [facility] Last Admin: 01/27/17 21:49 Dose: 10 mg Bisacodyl (Dulcolax) 10 mg IN DAILY [facility] Last Admin: 01/28/17 08:43 Dose: Not Given Docusate Sodium (Colace) 100 mg PO BID [facility] Last Admin: 01/28/17 08:43 Dose: 100 mg Ferrous Sulfate (Feosol) 325 mg PO TID [facility] Last Admin: 01/28/17 08:43 Dose: 325 mg Cefepime HCl 2 gm/ Sodium (Chloride) 100 mls @ 100 mls/hr IVPB Q12@0500,1700 [facility] Last Admin: 01/28/17 05:49 Dose: 100 mls/hr Daptomycin 700 mg/ Sodium (Chloride) 100 mls @ 100 mls/hr IV DAILY@2200 [facility] Stop: 02/01/17 21:01 Last Admin: 01/27/17 21:48 Dose: 100 mls/hr Lactobacillus Acidophilus (Bacid Acidophilus) 1 cap PO BID [facility] Last Admin: 01/28/17 08:42 Dose: 1 cap Lactulose (Enulose) 20 gm PO BID PRN PRN Reason: Constipation Last Admin: 01/14/17 06:10 Dose: 20 gm Losartan Potassium (Cozaar) 100 mg PO DAILY [facility] Last Admin: 01/28/17 08:43 Dose: 100 mg Metoprolol Tartrate (Lopressor) 50 mg PO Q12 [facility] Last Admin: 01/28/17 08:42 Dose: 50 mg Sennosides (Senokot Tab) 8.6 mg PO BID [facility] Last Admin: 01/28/17 08:43 Dose: 8.6 mg Tamsulosin HCl (Flomax) 0.4 mg PO DAILY [facility] Last Admin: 01/28/17 08:44 Dose: 0.4 mg - Labs Labs: 01/26/17 06:15 01/28/17 06:00 - Respiratory Exam Respiratory Exam: Clear to Ausculation Bilateral - Cardiovascular Exam Cardiovascular Exam: REGULAR RHYTHM, +S1, +S2 - Additional Findings Additional findings: ORTHOPEDIC NOTE REVIEWED AND DR NATION SPOKEN TO-PATIENT STILL HAS SIGNIFICANT DRAINAGE IN THE WOUND VAC AND HE WOULD LIKE DR BAER TO SEE THE PATIENT Assessment and Plan - Assessment and Plan (Free Text) Assessment: S/P MULTIPLE SURGERIES OF THE LEFT KNEE WITH CONTINUED WOUND VAC DRAINAGE MILD CAD HYPERTENSION HYPERLIPIDEMIA Plan: CONTINUE ANTIBIOTICS, LOSARTAN, METOPROLOL, AMLODIPINE, ATORVASTATIN CONTINUE WOUND VAC PLASTIC SURGERY TO SEE
[2017-01-28] MEDS: DAPTOmycin 700 MG in Sodium Chloride 0.9% 100 ML IV SCH (21:17)
[2017-01-29] MEDS: Cefepime 2 GM in Sodium Chloride 0.9% 100 ML IVPB SCH ×2 (04:24→16:49)
[2017-01-29 07:44] LABS: BLOOD UREA NITROGEN 10 mg/dl (9-20); CALCIUM 6.8 mg/dL (8.4-10.2); CARBON DIOXIDE 22 mmol/L (22-30); CHLORIDE 118 mmol/L (98-107); GFR AFRICAN-AMERICAN > 60; GLUCOSE,RANDOM 67 mg/dL (75-110); POTASSIUM 2.8 MMOL/L (3.6-5.0); SODIUM 142 mmol/l (132-148)
[2017-01-29 07:48] VITALS: RESP 20
[2017-01-29] MEDS: Lactobacillus Acidophilus 500 MU Cap PO SCH ×2 (08:41→16:49)
--- NOTE | 2017-01-29 11:23 | CP.PCM.PN ---
Subjective - Date & Time of Evaluation Date of Evaluation: 01/29/17 Time of Evaluation: 11:20 - Subjective Subjective: S- pt comfortable/ L knee immobilizer intact Objective - Vital Signs/Intake and Output Vital Signs (last 24 hours): Temp Pulse Resp BP Pulse Ox 98.4 F 84 20 151/80 H 99 01/29/17 07:46 01/29/17 08:43 01/29/17 07:46 01/29/17 08:43 01/29/17 07:46 - Medications Medications: Current Medications Acetaminophen (Tylenol 325mg Tab) 650 mg PO Q6 PRN PRN Reason: Fever >100.4 F Last Admin: 01/15/17 10:17 Dose: 650 mg Acetaminophen (Tylenol 325mg Tab) 650 mg PO Q6 PRN PRN Reason: Pain, Mild (1-3) Last Admin: 01/26/17 21:20 Dose: 650 mg Allopurinol (Zyloprim) 100 mg PO DAILY [facility] Last Admin: 01/29/17 08:43 Dose: 100 mg Amlodipine Besylate (Norvasc) 5 mg PO DAILY [facility] Last Admin: 01/29/17 08:42 Dose: 5 mg Atorvastatin Calcium (Lipitor) 10 mg PO HS [facility] Last Admin: 01/28/17 21:16 Dose: 10 mg Docusate Sodium (Colace) 100 mg PO BID [facility] Last Admin: 01/29/17 08:42 Dose: 100 mg Ferrous Sulfate (Feosol) 325 mg PO TID [facility] Last Admin: 01/29/17 08:42 Dose: 325 mg Cefepime HCl 2 gm/ Sodium (Chloride) 100 mls @ 100 mls/hr IVPB Q12@0500,1700 [facility] Last Admin: 01/29/17 04:24 Dose: 100 mls/hr Daptomycin 700 mg/ Sodium (Chloride) 100 mls @ 100 mls/hr IV DAILY@2200 [facility] Stop: 02/01/17 21:01 Last Admin: 01/28/17 21:17 Dose: 100 mls/hr Lactobacillus Acidophilus (Bacid Acidophilus) 1 cap PO BID [facility] Last Admin: 01/29/17 08:41 Dose: 1 cap Losartan Potassium (Cozaar) 100 mg PO DAILY [facility] Last Admin: 01/29/17 08:43 Dose: 100 mg Metoprolol Tartrate (Lopressor) 50 mg PO Q12 [facility] Last Admin: 01/29/17 08:41 Dose: 50 mg Sennosides (Senokot Tab) 8.6 mg PO BID [facility] Last Admin: 01/29/17 08:42 Dose: 8.6 mg Tamsulosin HCl (Flomax) 0.4 mg PO DAILY [facility] Last Admin: 01/29/17 08:42 Dose: 0.4 mg - Labs Labs: 01/26/17 06:15 01/29/17 05:30 - Additional Findings Additional findings: Objective pt in wheelchair at time of encounter L Knee immobilizer intact wound vac functioing orthopedically unchanged case discussed with Dr Quintero Assessment and Plan - Assessment and Plan (Free Text) Assessment: A- s/p Repair patella tendon wound dehiscience/excoriation P continue immobilizatioopn awiaitng plastic surg consult ( Dr Blake)
--- NOTE | 2017-01-29 16:03 | CP.PCM.PN ---
Subjective - Date & Time of Evaluation Date of Evaluation: 01/29/17 Time of Evaluation: 13:00 - Subjective Subjective: NO COMPLAINTS Objective - Vital Signs/Intake and Output Vital Signs (last 24 hours): Temp Pulse Resp BP Pulse Ox 98.4 F 84 20 151/80 H 99 01/29/17 10:00 01/29/17 10:00 01/29/17 10:00 01/29/17 10:00 01/29/17 10:00 - Medications Medications: Current Medications Acetaminophen (Tylenol 325mg Tab) 650 mg PO Q6 PRN PRN Reason: Fever >100.4 F Last Admin: 01/15/17 10:17 Dose: 650 mg Acetaminophen (Tylenol 325mg Tab) 650 mg PO Q6 PRN PRN Reason: Pain, Mild (1-3) Last Admin: 01/26/17 21:20 Dose: 650 mg Allopurinol (Zyloprim) 100 mg PO DAILY [facility] Last Admin: 01/29/17 08:43 Dose: 100 mg Amlodipine Besylate (Norvasc) 5 mg PO DAILY [facility] Last Admin: 01/29/17 08:42 Dose: 5 mg Atorvastatin Calcium (Lipitor) 10 mg PO HS [facility] Last Admin: 01/28/17 21:16 Dose: 10 mg Docusate Sodium (Colace) 100 mg PO BID [facility] Last Admin: 01/29/17 08:42 Dose: 100 mg Ferrous Sulfate (Feosol) 325 mg PO TID [facility] Last Admin: 01/29/17 08:42 Dose: 325 mg Cefepime HCl 2 gm/ Sodium (Chloride) 100 mls @ 100 mls/hr IVPB Q12@0500,1700 [facility] Last Admin: 01/29/17 04:24 Dose: 100 mls/hr Daptomycin 700 mg/ Sodium (Chloride) 100 mls @ 100 mls/hr IV DAILY@2200 [facility] Stop: 02/01/17 21:01 Last Admin: 01/28/17 21:17 Dose: 100 mls/hr Lactobacillus Acidophilus (Bacid Acidophilus) 1 cap PO BID [facility] Last Admin: 01/29/17 08:41 Dose: 1 cap Losartan Potassium (Cozaar) 100 mg PO DAILY [facility] Last Admin: 01/29/17 08:43 Dose: 100 mg Metoprolol Tartrate (Lopressor) 50 mg PO Q12 [facility] Last Admin: 01/29/17 08:41 Dose: 50 mg Sennosides (Senokot Tab) 8.6 mg PO BID [facility] Last Admin: 01/29/17 08:42 Dose: 8.6 mg Tamsulosin HCl (Flomax) 0.4 mg PO DAILY [facility] Last Admin: 01/29/17 08:42 Dose: 0.4 mg - Labs Labs: 01/26/17 06:15 01/29/17 05:30 - Respiratory Exam Respiratory Exam: Clear to Ausculation Bilateral - Cardiovascular Exam Cardiovascular Exam: REGULAR RHYTHM, +S1, +S2 - Additional Findings Additional findings: ORTHOPEDIC NOTES REVIEWED Assessment and Plan - Assessment and Plan (Free Text) Assessment: MULTIPLE LEFT KNEE SURGERIES MILD CAD HYPERTENSION HYPERLIPIDEMIA Plan: CONTINUE ANTIBIOTICS, LOSARTAN, METOPROLOL, AMLODIPINE AND ATORVASTATIN DR BAER TO SEE
[2017-01-29] MEDS: DAPTOmycin 700 MG in Sodium Chloride 0.9% 100 ML IV SCH (21:15)
[2017-01-30] MEDS ORDERED: Potassium Chloride 20 mEq ER Tab PO ONE (05:46)
[2017-01-30] MEDS: Cefepime 2 GM in Sodium Chloride 0.9% 100 ML IVPB SCH ×2 (05:48→16:59)
[2017-01-30 07:34] LABS: BLOOD UREA NITROGEN 12 mg/dl (9-20); CALCIUM 9.5 mg/dL (8.4-10.2); CARBON DIOXIDE 28 mmol/L (22-30); CHLORIDE 108 mmol/L (98-107); GFR AFRICAN-AMERICAN > 60; GLUCOSE,RANDOM 88 mg/dL (75-110); POTASSIUM 3.9 MMOL/L (3.6-5.0); SODIUM 140 mmol/l (132-148)
[2017-01-30] MEDS: Lactobacillus Acidophilus 500 MU Cap PO SCH ×2 (08:07→21:23)
--- NOTE | 2017-01-30 12:22 | CP.PCM.PN ---
Subjective - Date & Time of Evaluation Date of Evaluation: 01/30/17 Time of Evaluation: 10:30 - Subjective Subjective: NO NEW COMPLAINTS Objective - Vital Signs/Intake and Output Vital Signs (last 24 hours): Temp Pulse Resp BP Pulse Ox 97.9 F 71 20 183/89 H 99 01/30/17 07:56 01/30/17 08:11 01/30/17 07:56 01/30/17 08:11 01/30/17 07:56 - Medications Medications: Current Medications Acetaminophen (Tylenol 325mg Tab) 650 mg PO Q6 PRN PRN Reason: Fever >100.4 F Last Admin: 01/15/17 10:17 Dose: 650 mg Acetaminophen (Tylenol 325mg Tab) 650 mg PO Q6 PRN PRN Reason: Pain, Mild (1-3) Last Admin: 01/26/17 21:20 Dose: 650 mg Allopurinol (Zyloprim) 100 mg PO DAILY [facility] Last Admin: 01/30/17 08:13 Dose: 100 mg Amlodipine Besylate (Norvasc) 5 mg PO DAILY [facility] Last Admin: 01/30/17 08:11 Dose: 5 mg Atorvastatin Calcium (Lipitor) 10 mg PO HS [facility] Last Admin: 01/29/17 21:15 Dose: 10 mg Docusate Sodium (Colace) 100 mg PO BID [facility] Last Admin: 01/30/17 08:08 Dose: 100 mg Ferrous Sulfate (Feosol) 325 mg PO TID [facility] Last Admin: 01/30/17 08:09 Dose: 325 mg Cefepime HCl 2 gm/ Sodium (Chloride) 100 mls @ 100 mls/hr IVPB Q12@0500,1700 [facility] Last Admin: 01/30/17 05:48 Dose: 100 mls/hr Daptomycin 700 mg/ Sodium (Chloride) 100 mls @ 100 mls/hr IV DAILY@2200 [facility] Stop: 02/01/17 21:01 Last Admin: 01/29/17 21:15 Dose: 100 mls/hr Lactobacillus Acidophilus (Bacid Acidophilus) 1 cap PO BID [facility] Last Admin: 01/30/17 08:07 Dose: 1 cap Losartan Potassium (Cozaar) 100 mg PO DAILY [facility] Last Admin: 01/30/17 08:09 Dose: 100 mg Metoprolol Tartrate (Lopressor) 50 mg PO Q12 [facility] Last Admin: 01/30/17 08:10 Dose: 50 mg Sennosides (Senokot Tab) 8.6 mg PO BID [facility] Last Admin: 01/30/17 08:12 Dose: 8.6 mg Tamsulosin HCl (Flomax) 0.4 mg PO DAILY [facility] Last Admin: 01/30/17 08:10 Dose: 0.4 mg - Labs Labs: 01/26/17 06:15 01/30/17 05:30 - Respiratory Exam Respiratory Exam: Clear to Ausculation Bilateral - Cardiovascular Exam Cardiovascular Exam: REGULAR RHYTHM, +S1, +S2 Assessment and Plan - Assessment and Plan (Free Text) Assessment: S/P MULTIPLE LEFT KNEE SURGERIES MILD CAD HYPERTENSION HYPERLIPIDEMIA Plan: CONTINUE LOSARTAN, METOPROLOL, ATORVASTATIN, ANTIBIOTICS CONTINE TOYIN, OT, AND WOUND VAC PLASTIC SURGERY TO EVALUATE IN AM
[2017-01-30] MEDS: DAPTOmycin 700 MG in Sodium Chloride 0.9% 100 ML IV SCH (21:24)
[2017-01-31] MEDS: Cefepime 2 GM in Sodium Chloride 0.9% 100 ML IVPB SCH ×2 (05:47→16:57)
[2017-01-31] MEDS: Lactobacillus Acidophilus 500 MU Cap PO SCH ×2 (08:39→16:57)
--- NOTE | 2017-01-31 09:50 | CP.PCM.PN ---
Subjective - Date & Time of Evaluation Date of Evaluation: 01/31/17 Time of Evaluation: 09:00 - Subjective Subjective: NO CHEST PAIN OR SOB Objective - Vital Signs/Intake and Output Vital Signs (last 24 hours): Temp Pulse Resp BP Pulse Ox 99.1 F 86 20 169/91 H 97 01/31/17 07:44 01/31/17 08:38 01/31/17 07:44 01/31/17 08:38 01/31/17 07:44 - Medications Medications: Current Medications Acetaminophen (Tylenol 325mg Tab) 650 mg PO Q6 PRN PRN Reason: Fever >100.4 F Last Admin: 01/15/17 10:17 Dose: 650 mg Acetaminophen (Tylenol 325mg Tab) 650 mg PO Q6 PRN PRN Reason: Pain, Mild (1-3) Last Admin: 01/30/17 17:06 Dose: 650 mg Allopurinol (Zyloprim) 100 mg PO DAILY [facility] Last Admin: 01/31/17 08:37 Dose: 100 mg Amlodipine Besylate (Norvasc) 5 mg PO DAILY [facility] Last Admin: 01/31/17 08:38 Dose: 5 mg Atorvastatin Calcium (Lipitor) 10 mg PO HS [facility] Last Admin: 01/30/17 21:24 Dose: 10 mg Docusate Sodium (Colace) 100 mg PO BID [facility] Last Admin: 01/31/17 08:37 Dose: 100 mg Ferrous Sulfate (Feosol) 325 mg PO TID [facility] Last Admin: 01/31/17 08:37 Dose: 325 mg Cefepime HCl 2 gm/ Sodium (Chloride) 100 mls @ 100 mls/hr IVPB Q12@0500,1700 [facility] Last Admin: 01/31/17 05:47 Dose: 100 mls/hr Daptomycin 700 mg/ Sodium (Chloride) 100 mls @ 100 mls/hr IV DAILY@2200 [facility] Stop: 02/01/17 21:01 Last Admin: 01/30/17 21:24 Dose: 100 mls/hr Lactobacillus Acidophilus (Bacid Acidophilus) 1 cap PO BID [facility] Last Admin: 01/31/17 08:39 Dose: 1 cap Losartan Potassium (Cozaar) 100 mg PO DAILY [facility] Last Admin: 01/31/17 08:37 Dose: 100 mg Metoprolol Tartrate (Lopressor) 50 mg PO Q12 [facility] Last Admin: 01/31/17 08:37 Dose: 50 mg Sennosides (Senokot Tab) 8.6 mg PO BID [facility] Last Admin: 01/31/17 08:37 Dose: 8.6 mg Tamsulosin HCl (Flomax) 0.4 mg PO DAILY [facility] Last Admin: 01/31/17 08:38 Dose: 0.4 mg - Labs Labs: 01/26/17 06:15 01/30/17 05:30 - Respiratory Exam Respiratory Exam: Clear to Ausculation Bilateral - Cardiovascular Exam Cardiovascular Exam: REGULAR RHYTHM, +S1, +S2 Assessment and Plan - Assessment and Plan (Free Text) Assessment: MULTIPLE LEFT KNEE SURGERIES MILD CAD HYPERTENSION HYPERLIPIDEMIA Plan: TO BE SEEN BY PLASTIC SURGERY TODAY CONTINUE LOSARTAN, METOPROLOL, ATORVASTATIN, AMLODIPINE AND ANTIBIOTICS
--- NOTE | 2017-01-31 12:32 | CP.PCM.CON ---
History of Present Illness - History of Present Illness History of Present Illness: Jose Rosenbaum is a 76 year old male who I first saw on consultation at [facility] on . He has a history of undergoing multiple revisions of a left TKR (the most recent on 01/10 to repair a patellar tendon). Post-operatively he did well until last week when his sutures were removed an he developed a dehiscence. He was placed on wound vac therapy. On 01/26 his WBC = 5.1 H/H = 9.4/28.7, T.P. = 5.3 and Alb = 2.8. His Temp. today is 99.1. Physical examination of the left leg demonstrates multiple punctate small open wounds over the superior suture line and 10 x 4 cm area of dehiscence over the patella and patellar tendon with exposed hardware at the inferior-most aspect of the wound. There is granulation tissue present over the patella. Excellent dorsalis pediis pulse. No signs of wound infection. IMP: Dehiscence of the post operative wound in a malnourished patient who also suffers from CHF and HTN. RECOMMENDATION: Continue wound vac therapy and aggressive nutritional support. He will probably eventually require a medial gastrocnemius muscle flap to provide adequate wound coverage. Will discuss with Leon Mckeon, and Sharon. Thank you, Neil Blake M.D. Past Patient History - Infectious Disease Hx of Infectious Diseases: VRE - Tetanus Immunizations Tetanus Immunization: Unknown - Past Medical History & Family History Past Medical History?: Yes Past Family History: Reviewed and not pertinent - Past Social History Smoking Status: Never Smoked Chewing Tobacco Use: No Cigar Use: No Alcohol: None Drugs: Denies Home Situation {Lives}: With Family Domestic Violence: Negative - CARDIAC Hx Hypertension: Yes - PULMONARY Hx Sleep Apnea: Yes - NEUROLOGICAL Hx Neurological Disorder: No - HEENT Hx HEENT Problems: Yes Other/Comment: wears glasses - RENAL Hx Chronic Kidney Disease: Yes Other/Comment: renal insufficiency - ENDOCRINE/METABOLIC Hx Endocrine Disorders: No - HEMATOLOGICAL/ONCOLOGICAL Hx Anemia: Yes Hx Blood Transfusions: Yes - INTEGUMENTARY Hx Dermatological Problems: No - MUSCULOSKELETAL/RHEUMATOLOGICAL Hx Degenerative Joint Disease: Yes Hx Falls: Yes - GASTROINTESTINAL Hx Gastrointestinal Disorders: No - GENITOURINARY/GYNECOLOGICAL Hx Genitourinary Disorders: Yes Hx Prostate Problems: Yes - PSYCHIATRIC Hx Anxiety: No Hx Substance Use: No - SURGICAL HISTORY Hx Surgeries: Yes Hx Joint Replacement: Yes (TOTAL LEFT KNEE REPLACEMENT X 2) Other/Comment: LASER PROSTATE SX. 12/13/16 s/p left tkr revision - ANESTHESIA Hx Anesthesia: Yes Hx Anesthesia Reactions: No Hx Malignant Hyperthermia: No Has any member of the family had a problem w/ anesthesia?: No Meds Allergies/Adverse Reactions: Allergies Allergy/AdvReac Type Severity Reaction Status Date / Time No Known Allergies Allergy Verified 12/18/16 00:41 - Medications Medications: Current Medications Acetaminophen (Tylenol 325mg Tab) 650 mg PO Q6 PRN PRN Reason: Fever >100.4 F Last Admin: 01/15/17 10:17 Dose: 650 mg Acetaminophen (Tylenol 325mg Tab) 650 mg PO Q6 PRN PRN Reason: Pain, Mild (1-3) Last Admin: 01/30/17 17:06 Dose: 650 mg Allopurinol (Zyloprim) 100 mg PO DAILY [facility] Last Admin: 01/31/17 08:37 Dose: 100 mg Amlodipine Besylate (Norvasc) 5 mg PO DAILY [facility] Last Admin: 01/31/17 08:38 Dose: 5 mg Atorvastatin Calcium (Lipitor) 10 mg PO HS [facility] Last Admin: 01/30/17 21:24 Dose: 10 mg Docusate Sodium (Colace) 100 mg PO BID [facility] Last Admin: 01/31/17 08:37 Dose: 100 mg Ferrous Sulfate (Feosol) 325 mg PO TID [facility] Last Admin: 01/31/17 08:37 Dose: 325 mg Cefepime HCl 2 gm/ Sodium (Chloride) 100 mls @ 100 mls/hr IVPB Q12@0500,1700 [facility] Last Admin: 01/31/17 05:47 Dose: 100 mls/hr Daptomycin 700 mg/ Sodium (Chloride) 100 mls @ 100 mls/hr IV DAILY@2200 [facility] Stop: 02/01/17 21:01 Last Admin: 01/30/17 21:24 Dose: 100 mls/hr Lactobacillus Acidophilus (Bacid Acidophilus) 1 cap PO BID [facility] Last Admin: 01/31/17 08:39 Dose: 1 cap Losartan Potassium (Cozaar) 100 mg PO DAILY [facility] Last Admin: 01/31/17 08:37 Dose: 100 mg Metoprolol Tartrate (Lopressor) 50 mg PO Q12 [facility] Last Admin: 01/31/17 08:37 Dose: 50 mg Sennosides (Senokot Tab) 8.6 mg PO BID [facility] Last Admin: 01/31/17 08:37 Dose: 8.6 mg Tamsulosin HCl (Flomax) 0.4 mg PO DAILY [facility] Last Admin: 01/31/17 08:38 Dose: 0.4 mg Results - Vital Signs Recent Vital Signs: Last Vital Signs Temp 99.1 F 01/31/17 07:44 Pulse 86 01/31/17 08:38 Resp 20 01/31/17 07:44 BP 169/91 H 01/31/17 08:38 Pulse Ox 97 01/31/17 07:44 - Labs Result Diagrams: 01/26/17 06:15 01/30/17 05:30
[2017-01-31] MEDS: DAPTOmycin 700 MG in Sodium Chloride 0.9% 100 ML IV SCH (21:59)
[2017-02-01] MEDS: Cefepime 2 GM in Sodium Chloride 0.9% 100 ML IVPB SCH ×2 (05:14→17:00)
[2017-02-01] MEDS: Lactobacillus Acidophilus 500 MU Cap PO SCH ×2 (09:24→17:00)
--- NOTE | 2017-02-01 11:13 | CP.PCM.PN ---
Subjective - Date & Time of Evaluation Date of Evaluation: 02/01/17 Time of Evaluation: 09:30 - Subjective Subjective: NO NEW COMPLAINTS Objective - Vital Signs/Intake and Output Vital Signs (last 24 hours): Temp Pulse Resp BP Pulse Ox 98.2 F 73 20 156/92 H 97 02/01/17 10:00 02/01/17 10:00 02/01/17 10:00 02/01/17 10:00 02/01/17 10:00 - Medications Medications: Current Medications Acetaminophen (Tylenol 325mg Tab) 650 mg PO Q6 PRN PRN Reason: Fever >100.4 F Last Admin: 01/15/17 10:17 Dose: 650 mg Acetaminophen (Tylenol 325mg Tab) 650 mg PO Q6 PRN PRN Reason: Pain, Mild (1-3) Last Admin: 01/30/17 17:06 Dose: 650 mg Allopurinol (Zyloprim) 100 mg PO DAILY [facility] Last Admin: 02/01/17 09:26 Dose: 100 mg Amlodipine Besylate (Norvasc) 5 mg PO DAILY [facility] Last Admin: 02/01/17 09:26 Dose: 5 mg Atorvastatin Calcium (Lipitor) 10 mg PO HS [facility] Last Admin: 01/31/17 22:00 Dose: 10 mg Docusate Sodium (Colace) 100 mg PO BID [facility] Last Admin: 02/01/17 09:24 Dose: 100 mg Ferrous Sulfate (Feosol) 325 mg PO TID [facility] Last Admin: 02/01/17 09:24 Dose: 325 mg Cefepime HCl 2 gm/ Sodium (Chloride) 100 mls @ 100 mls/hr IVPB Q12@0500,1700 [facility] Last Admin: 02/01/17 05:14 Dose: 100 mls/hr Daptomycin 700 mg/ Sodium (Chloride) 100 mls @ 100 mls/hr IV DAILY@2200 [facility] Stop: 02/01/17 21:01 Last Admin: 01/31/17 21:59 Dose: 100 mls/hr Lactobacillus Acidophilus (Bacid Acidophilus) 1 cap PO BID [facility] Last Admin: 02/01/17 09:24 Dose: 1 cap Losartan Potassium (Cozaar) 100 mg PO DAILY [facility] Last Admin: 02/01/17 09:25 Dose: 100 mg Metoprolol Tartrate (Lopressor) 50 mg PO Q12 [facility] Last Admin: 02/01/17 09:25 Dose: 50 mg Sennosides (Senokot Tab) 8.6 mg PO BID [facility] Last Admin: 02/01/17 09:26 Dose: 8.6 mg Tamsulosin HCl (Flomax) 0.4 mg PO DAILY [facility] Last Admin: 02/01/17 09:25 Dose: 0.4 mg - Labs Labs: 01/26/17 06:15 01/30/17 05:30 - Respiratory Exam Respiratory Exam: Clear to Ausculation Bilateral - Cardiovascular Exam Cardiovascular Exam: REGULAR RHYTHM, +S1, +S2 Assessment and Plan - Assessment and Plan (Free Text) Assessment: MULTIPLE LEFT KNEE SURGERIES WITH WOUND DEHISCENCE MILD CAD HYPERTENSION HYPERLIPIDEMIA Plan: CONTINUE ANTIBIOTICS, AMLODIPINE, LOSARTAN, METOPROLOL AND ATORVASTATIN
--- NOTE | 2017-02-01 18:33 | CP.PCM.PN ---
Subjective - Date & Time of Evaluation Date of Evaluation: 02/01/17 Time of Evaluation: 11:40 - Subjective Subjective: Pt seen and examined. Claimed he was pain free and doing well with therapy. Objective - Vital Signs/Intake and Output Vital Signs (last 24 hours): Temp Pulse Resp BP Pulse Ox 97.2 F L 106 H 20 133/74 98 02/01/17 17:19 02/01/17 17:19 02/01/17 17:19 02/01/17 17:19 02/01/17 17:19 - Medications Medications: Current Medications Acetaminophen (Tylenol 325mg Tab) 650 mg PO Q6 PRN PRN Reason: Fever >100.4 F Last Admin: 01/15/17 10:17 Dose: 650 mg Acetaminophen (Tylenol 325mg Tab) 650 mg PO Q6 PRN PRN Reason: Pain, Mild (1-3) Last Admin: 01/30/17 17:06 Dose: 650 mg Allopurinol (Zyloprim) 100 mg PO DAILY [facility] Last Admin: 02/01/17 09:26 Dose: 100 mg Amlodipine Besylate (Norvasc) 5 mg PO DAILY [facility] Last Admin: 02/01/17 09:26 Dose: 5 mg Atorvastatin Calcium (Lipitor) 10 mg PO HS [facility] Last Admin: 01/31/17 22:00 Dose: 10 mg Docusate Sodium (Colace) 100 mg PO BID [facility] Last Admin: 02/01/17 17:00 Dose: 100 mg Ferrous Sulfate (Feosol) 325 mg PO TID [facility] Last Admin: 02/01/17 17:00 Dose: 325 mg Cefepime HCl 2 gm/ Sodium (Chloride) 100 mls @ 100 mls/hr IVPB Q12@0500,1700 [facility] Last Admin: 02/01/17 17:00 Dose: 100 mls/hr Daptomycin 700 mg/ Sodium (Chloride) 100 mls @ 100 mls/hr IV DAILY@2200 [facility] Stop: 03/01/17 21:01 Last Admin: 01/31/17 21:59 Dose: 100 mls/hr Lactobacillus Acidophilus (Bacid Acidophilus) 1 cap PO BID [facility] Last Admin: 02/01/17 17:00 Dose: 1 cap Losartan Potassium (Cozaar) 100 mg PO DAILY [facility] Last Admin: 02/01/17 09:25 Dose: 100 mg Metoprolol Tartrate (Lopressor) 50 mg PO Q12 [facility] Last Admin: 02/01/17 09:25 Dose: 50 mg Sennosides (Senokot Tab) 8.6 mg PO BID [facility] Last Admin: 02/01/17 17:00 Dose: 8.6 mg Tamsulosin HCl (Flomax) 0.4 mg PO DAILY [facility] Last Admin: 02/01/17 09:25 Dose: 0.4 mg - Labs Labs: 01/26/17 06:15 01/30/17 05:30 - Constitutional Appears: No Acute Distress - Head Exam Head Exam: ATRAUMATIC - Eye Exam Eye Exam: absent: Scleral icterus - ENT Exam ENT Exam: Mucous Membranes Moist - Neck Exam Neck Exam: absent: Meningismus - Respiratory Exam Respiratory Exam: absent: Rhonchi, Wheezes, Respiratory Distress - Cardiovascular Exam Cardiovascular Exam: REGULAR RHYTHM, +S1, +S2 - GI/Abdominal Exam GI & Abdominal Exam: Soft. absent: Tenderness - Rectal Exam Rectal Exam: Deferred - Extremities Exam Extremities Exam: absent: Full ROM (left knee swollen but non-tender, wound vac still draining) - Neurological Exam Neurological Exam: Alert, Oriented x3 - Psychiatric Exam Psychiatric exam: Normal Affect - Skin Skin Exam: Dry, Intact Assessment and Plan - Assessment and Plan (Free Text) Assessment: 76 yo male with history of OA, LEONARDO, HTN, HLD, Renal Insufficiency and BPH had revision of left TKR on 12/13/2016 and was discharged from TCU on 12/24/2016. The next day patient fell from his wheelchair after hitting a bump in the street injuring his left knee and causing the wound to open. He had large amount of bleeding and was admitted at [facility] where he received 3 units of PRBC. Wound Vac and Hemovac were placed. He was later transferred to [facility] for further management since his orthopedist works here. Dr Blake, plastic surgeon, was consulted and recommended patellar ligament repair and primary wound closure. He underwent Left Patella/Ligament Reconstruction and wound vac placement on 1). Left Knee Wound Dehiscence S/P Left Patella/Ligament Reconstruction and wound vac placement on 01/10/17. Wound Culture + VRE and Psuedomonas ID Dr. Rock Quintero Daptomycin 700mg IV daily Maxipime 2 gm IV q 12hrs 2). HTN Losartan 100 mg PO daily Metoprolol 50 mg PO Q12H Norvasc 5 mg PO daily 3). Acute Blood Loss Anemia Feosol 325 mg PO TID Hgb stable: 9.4 4). BPH Flomax 0.4 mg PO daily 5). Gout Allopurinol 100 mg PO daily 6). HLD Atorvastatin 10 mg PO daily
[2017-02-01] MEDS: DAPTOmycin 700 MG in Sodium Chloride 0.9% 100 ML IV SCH (21:37)
[2017-02-02] MEDS: Cefepime 2 GM in Sodium Chloride 0.9% 100 ML IVPB SCH ×2 (05:45→16:28)
[2017-02-02] MEDS: Lactobacillus Acidophilus 500 MU Cap PO SCH ×2 (09:58→16:27)
--- NOTE | 2017-02-02 12:26 | CP.PCM.PN ---
Subjective - Date & Time of Evaluation Date of Evaluation: 02/02/17 Time of Evaluation: 10:00 - Subjective Subjective: NOW NEW COMPLAINTS FEELS WELL Objective - Vital Signs/Intake and Output Vital Signs (last 24 hours): Temp Pulse Resp BP Pulse Ox 98.2 F 70 20 167/91 H 99 02/02/17 10:06 02/02/17 10:06 02/02/17 10:06 02/02/17 10:06 02/02/17 10:06 - Medications Medications: Current Medications Acetaminophen (Tylenol 325mg Tab) 650 mg PO Q6 PRN PRN Reason: Fever >100.4 F Last Admin: 01/15/17 10:17 Dose: 650 mg Acetaminophen (Tylenol 325mg Tab) 650 mg PO Q6 PRN PRN Reason: Pain, Mild (1-3) Last Admin: 01/30/17 17:06 Dose: 650 mg Allopurinol (Zyloprim) 100 mg PO DAILY [facility] Last Admin: 02/02/17 10:00 Dose: 100 mg Amlodipine Besylate (Norvasc) 5 mg PO DAILY [facility] Last Admin: 02/02/17 09:59 Dose: 5 mg Atorvastatin Calcium (Lipitor) 10 mg PO HS [facility] Last Admin: 02/01/17 21:38 Dose: 10 mg Docusate Sodium (Colace) 100 mg PO BID [facility] Last Admin: 02/02/17 09:59 Dose: 100 mg Ferrous Sulfate (Feosol) 325 mg PO TID [facility] Last Admin: 02/02/17 09:58 Dose: 325 mg Cefepime HCl 2 gm/ Sodium (Chloride) 100 mls @ 100 mls/hr IVPB Q12@0500,1700 [facility] Last Admin: 02/02/17 05:45 Dose: 100 mls/hr Daptomycin 700 mg/ Sodium (Chloride) 100 mls @ 100 mls/hr IV DAILY@2200 [facility] Stop: 03/01/17 21:01 Last Admin: 02/01/17 21:37 Dose: 100 mls/hr Lactobacillus Acidophilus (Bacid Acidophilus) 1 cap PO BID [facility] Last Admin: 02/02/17 09:58 Dose: 1 cap Losartan Potassium (Cozaar) 100 mg PO DAILY [facility] Last Admin: 02/02/17 09:58 Dose: 100 mg Metoprolol Tartrate (Lopressor) 50 mg PO Q12 [facility] Last Admin: 02/02/17 09:58 Dose: 50 mg Sennosides (Senokot Tab) 8.6 mg PO BID [facility] Last Admin: 02/02/17 09:59 Dose: 8.6 mg Tamsulosin HCl (Flomax) 0.4 mg PO DAILY [facility] Last Admin: 02/02/17 09:58 Dose: 0.4 mg - Labs Labs: 01/26/17 06:15 01/30/17 05:30 - Respiratory Exam Respiratory Exam: Clear to Ausculation Bilateral - Cardiovascular Exam Cardiovascular Exam: REGULAR RHYTHM, +S1, +S2 Assessment and Plan - Assessment and Plan (Free Text) Assessment: MULTIPLE LEFT KNEE SURGERIES AND TRAUMA WITH WOUND DIHISCENCE MILD CAD HYPERTENSION HYPERLIPIDEMIA Plan: CONTINUE ANTIBIOTICS, LOSARTAN, AMLODIPINE, METOPROLOL, ATORVASTATIN CONTINUE PHYSICAL THERAPY
[2017-02-02] MEDS: DAPTOmycin 700 MG in Sodium Chloride 0.9% 100 ML IV SCH (21:02)
[2017-02-03] MEDS: Cefepime 2 GM in Sodium Chloride 0.9% 100 ML IVPB SCH ×2 (05:07→16:22)
[2017-02-03] MEDS: Lactobacillus Acidophilus 500 MU Cap PO SCH ×2 (09:12→16:22)
--- NOTE | 2017-02-03 09:33 | CP.PCM.PN ---
Subjective - Date & Time of Evaluation Date of Evaluation: 02/03/17 Time of Evaluation: 10:30 - Subjective Subjective: Patient seen and examined bedside.Feeling well. Denies any pain . Participating with PT. Hemodynamically stable, afebrile wound vac to left knee . Objective - Vital Signs/Intake and Output Vital Signs (last 24 hours): Temp Pulse Resp BP Pulse Ox 98.1 F 84 20 150/80 99 02/03/17 08:11 02/03/17 09:14 02/03/17 08:11 02/03/17 09:14 02/03/17 08:11 - Medications Medications: Current Medications Acetaminophen (Tylenol 325mg Tab) 650 mg PO Q6 PRN PRN Reason: Fever >100.4 F Last Admin: 01/15/17 10:17 Dose: 650 mg Acetaminophen (Tylenol 325mg Tab) 650 mg PO Q6 PRN PRN Reason: Pain, Mild (1-3) Last Admin: 01/30/17 17:06 Dose: 650 mg Allopurinol (Zyloprim) 100 mg PO DAILY [facility] Last Admin: 02/03/17 09:12 Dose: 100 mg Amlodipine Besylate (Norvasc) 5 mg PO DAILY [facility] Last Admin: 02/03/17 09:14 Dose: 5 mg Atorvastatin Calcium (Lipitor) 10 mg PO HS [facility] Last Admin: 02/02/17 20:59 Dose: 10 mg Docusate Sodium (Colace) 100 mg PO BID [facility] Last Admin: 02/03/17 09:12 Dose: 100 mg Ferrous Sulfate (Feosol) 325 mg PO TID [facility] Last Admin: 02/03/17 09:13 Dose: 325 mg Cefepime HCl 2 gm/ Sodium (Chloride) 100 mls @ 100 mls/hr IVPB Q12@0500,1700 [facility] Last Admin: 02/03/17 05:07 Dose: 100 mls/hr Daptomycin 700 mg/ Sodium (Chloride) 100 mls @ 100 mls/hr IV DAILY@2200 [facility] Stop: 03/01/17 21:01 Last Admin: 02/02/17 21:02 Dose: 100 mls/hr Lactobacillus Acidophilus (Bacid Acidophilus) 1 cap PO BID [facility] Last Admin: 02/03/17 09:12 Dose: 1 cap Losartan Potassium (Cozaar) 100 mg PO DAILY [facility] Last Admin: 02/03/17 09:13 Dose: 100 mg Metoprolol Tartrate (Lopressor) 50 mg PO Q12 [facility] Last Admin: 02/03/17 09:13 Dose: 50 mg Sennosides (Senokot Tab) 8.6 mg PO BID [facility] Last Admin: 02/03/17 09:15 Dose: 8.6 mg Tamsulosin HCl (Flomax) 0.4 mg PO DAILY [facility] Last Admin: 02/03/17 09:12 Dose: 0.4 mg - Labs Labs: 01/26/17 06:15 01/30/17 05:30 - Constitutional Appears: Non-toxic, No Acute Distress - Head Exam Head Exam: ATRAUMATIC, NORMAL INSPECTION, NORMOCEPHALIC - Eye Exam Eye Exam: EOMI, Normal appearance, PERRL Pupil Exam: NORMAL ACCOMODATION - ENT Exam ENT Exam: Mucous Membranes Moist, Normal Exam - Neck Exam Neck Exam: Full ROM, Normal Inspection - Respiratory Exam Respiratory Exam: Clear to Ausculation Bilateral, NORMAL BREATHING PATTERN. absent: Rales, Rhonchi, Wheezes - Cardiovascular Exam Cardiovascular Exam: REGULAR RHYTHM, RRR, +S1, +S2. absent: JVD - GI/Abdominal Exam GI & Abdominal Exam: Soft, Normal Bowel Sounds. absent: Distended, Guarding, Tenderness, Rebound - Rectal Exam Rectal Exam: Deferred - Extremities Exam Extremities Exam: Normal Capillary Refill, Pedal Edema (LLE 2 +). absent: Calf Tenderness Additional comments: left knee open wound with wound vac in place - Back Exam Back Exam: NORMAL INSPECTION. absent: CVA tenderness (L) - Neurological Exam Neurological Exam: Alert, Awake, CN II-XII Intact, Oriented x3 - Psychiatric Exam Psychiatric exam: Normal Affect, Normal Mood - Skin Skin Exam: Dry, Intact, Normal Color, Warm Assessment and Plan - Assessment and Plan (Free Text) Assessment: 76 yo male with history of OA, LEONARDO, HTN, HLD, Renal Insufficiency and BPH had revision of left TKR on 12/13/2016 and was discharged from TCU on 12/24/2016. The next day patient fell from his wheelchair after hitting a bump in the street injuring his left knee and causing the wound to open. He had large amount of bleeding and was admitted at [facility] where he received 3 units of PRBC. Wound Vac and Hemovac were placed. He was later transferred to [facility] for further management since his orthopedist works here. Dr Blake, plastic surgeon, was consulted and recommended patellar ligament repair and primary wound closure. He underwent Left Patella/Ligament Reconstruction and wound vac placement on 1. Left Knee Wound Dehiscence S/P Left Patella/Ligament Reconstruction and wound vac placement on 01/10/17. Wound Culture + VRE and Psuedomonas ID Dr. Rock Quintero on consult Continue Daptomycin 700mg IV daily and Maxipime 2 gm IV q 12hrs Re evaluation of wound by Dr Blake plastic surgery Ortho Dr. Chan following up Continue physical therapy 2. HTN controlled Losartan 100 mg PO daily Metoprolol 50 mg PO Q12H Norvasc 5 mg PO daily 3. Acute Blood Loss Anemia Feosol 325 mg PO TID Hgb stable: 9.4 4. BPH Flomax 0.4 mg PO daily 5. Gout stable Allopurinol 100 mg PO daily 6. HLD Atorvastatin 10 mg PO daily 7. DVT prophylaxis SCD No anticoagulation due to anemia
--- NOTE | 2017-02-03 11:58 | CP.PCM.PN ---
Subjective - Date & Time of Evaluation Date of Evaluation: 02/03/17 Time of Evaluation: 10:00 - Subjective Subjective: NO NEW COMPLAINTS Objective - Vital Signs/Intake and Output Vital Signs (last 24 hours): Temp Pulse Resp BP Pulse Ox 98.1 F 84 20 150/80 99 02/03/17 08:11 02/03/17 09:14 02/03/17 08:11 02/03/17 09:14 02/03/17 08:11 - Medications Medications: Current Medications Acetaminophen (Tylenol 325mg Tab) 650 mg PO Q6 PRN PRN Reason: Fever >100.4 F Last Admin: 01/15/17 10:17 Dose: 650 mg Acetaminophen (Tylenol 325mg Tab) 650 mg PO Q6 PRN PRN Reason: Pain, Mild (1-3) Last Admin: 01/30/17 17:06 Dose: 650 mg Allopurinol (Zyloprim) 100 mg PO DAILY [facility] Last Admin: 02/03/17 09:12 Dose: 100 mg Amlodipine Besylate (Norvasc) 5 mg PO DAILY [facility] Last Admin: 02/03/17 09:14 Dose: 5 mg Atorvastatin Calcium (Lipitor) 10 mg PO HS [facility] Last Admin: 02/02/17 20:59 Dose: 10 mg Docusate Sodium (Colace) 100 mg PO BID [facility] Last Admin: 02/03/17 09:12 Dose: 100 mg Ferrous Sulfate (Feosol) 325 mg PO TID [facility] Last Admin: 02/03/17 09:13 Dose: 325 mg Cefepime HCl 2 gm/ Sodium (Chloride) 100 mls @ 100 mls/hr IVPB Q12@0500,1700 [facility] Last Admin: 02/03/17 05:07 Dose: 100 mls/hr Daptomycin 700 mg/ Sodium (Chloride) 100 mls @ 100 mls/hr IV DAILY@2200 [facility] Stop: 03/01/17 21:01 Last Admin: 02/02/17 21:02 Dose: 100 mls/hr Lactobacillus Acidophilus (Bacid Acidophilus) 1 cap PO BID [facility] Last Admin: 02/03/17 09:12 Dose: 1 cap Losartan Potassium (Cozaar) 100 mg PO DAILY [facility] Last Admin: 02/03/17 09:13 Dose: 100 mg Metoprolol Tartrate (Lopressor) 50 mg PO Q12 [facility] Last Admin: 02/03/17 09:13 Dose: 50 mg Sennosides (Senokot Tab) 8.6 mg PO BID [facility] Last Admin: 02/03/17 09:15 Dose: 8.6 mg Tamsulosin HCl (Flomax) 0.4 mg PO DAILY [facility] Last Admin: 02/03/17 09:12 Dose: 0.4 mg - Labs Labs: 01/26/17 06:15 01/30/17 05:30 - Respiratory Exam Respiratory Exam: Clear to Ausculation Bilateral - Cardiovascular Exam Cardiovascular Exam: REGULAR RHYTHM, +S1, +S2 Assessment and Plan - Assessment and Plan (Free Text) Assessment: S/P LEFT KNEE SURGERY WITH TRAUMA AND WOUND DIHISCENCE MILD CAD HYPERTENSION HYPERLIPIDEMIA Plan: TO BE REEVALUATED BY PLASTIC SURGERY CONTINUE ANTIBIOTICS, WOUND VAC, LOSARTAN, METOPROLOL, ATORVASTATIN, METOPROLOL
[2017-02-03] MEDS: DAPTOmycin 700 MG in Sodium Chloride 0.9% 100 ML IV SCH (21:06)
[2017-02-04] MEDS: Cefepime 2 GM in Sodium Chloride 0.9% 100 ML IVPB SCH (04:09)
[2017-02-04 07:31] LABS: HEMATOCRIT 31.7 % (35.0-51.0); MEAN CELL VOLUME 85.9 fl (80.0-94.0); MEAN CORPUSCULAR HEMOGLOBIN 27.7 pg (27.0-31.0); MEAN CORPUSCULAR HGB CONC 32.3 g/dL (33.0-37.0); RED CELL DISTRIBUTION WIDTH 18.3 % (11.5-14.5); WHITE BLOOD COUNT 5.8 K/uL (4.8-10.8)
[2017-02-04 07:40] LABS: BLOOD UREA NITROGEN 12 mg/dl (9-20); CALCIUM 9.6 mg/dL (8.4-10.2); CARBON DIOXIDE 27 mmol/L (22-30); CHLORIDE 107 mmol/L (98-107); GFR AFRICAN-AMERICAN > 60; GLUCOSE,RANDOM 96 mg/dL (75-110); POTASSIUM 4.1 MMOL/L (3.6-5.0); SODIUM 140 mmol/l (132-148)
[2017-02-04] MEDS: Lactobacillus Acidophilus 500 MU Cap PO SCH ×2 (09:16→17:04)
--- NOTE | 2017-02-04 12:31 | CP.PCM.PN ---
Subjective - Date & Time of Evaluation Date of Evaluation: 02/04/17 Time of Evaluation: 11:00 - Subjective Subjective: NO NEW COMPLAINTS Objective - Vital Signs/Intake and Output Vital Signs (last 24 hours): Temp Pulse Resp BP Pulse Ox 98.4 F 92 H 20 148/80 99 02/04/17 10:00 02/04/17 10:00 02/04/17 10:00 02/04/17 10:00 02/04/17 10:00 - Medications Medications: Current Medications Acetaminophen (Tylenol 325mg Tab) 650 mg PO Q6 PRN PRN Reason: Fever >100.4 F Last Admin: 01/15/17 10:17 Dose: 650 mg Acetaminophen (Tylenol 325mg Tab) 650 mg PO Q6 PRN PRN Reason: Pain, Mild (1-3) Last Admin: 01/30/17 17:06 Dose: 650 mg Allopurinol (Zyloprim) 100 mg PO DAILY [facility] Last Admin: 02/04/17 09:15 Dose: 100 mg Amlodipine Besylate (Norvasc) 5 mg PO DAILY [facility] Last Admin: 02/04/17 09:15 Dose: 5 mg Atorvastatin Calcium (Lipitor) 10 mg PO HS [facility] Last Admin: 02/03/17 21:05 Dose: 10 mg Docusate Sodium (Colace) 100 mg PO BID [facility] Last Admin: 02/04/17 09:15 Dose: 100 mg Ferrous Sulfate (Feosol) 325 mg PO TID [facility] Last Admin: 02/04/17 09:14 Dose: 325 mg Cefepime HCl 2 gm/ Sodium (Chloride) 100 mls @ 100 mls/hr IVPB Q12@0500,1700 [facility] Last Admin: 02/04/17 04:09 Dose: 100 mls/hr Daptomycin 700 mg/ Sodium (Chloride) 100 mls @ 100 mls/hr IV DAILY@2200 [facility] Stop: 03/01/17 21:01 Last Admin: 02/03/17 21:06 Dose: 100 mls/hr Lactobacillus Acidophilus (Bacid Acidophilus) 1 cap PO BID [facility] Last Admin: 02/04/17 09:16 Dose: 1 cap Losartan Potassium (Cozaar) 100 mg PO DAILY [facility] Last Admin: 02/04/17 09:14 Dose: 100 mg Metoprolol Tartrate (Lopressor) 50 mg PO Q12 [facility] Last Admin: 02/04/17 09:14 Dose: 50 mg Sennosides (Senokot Tab) 8.6 mg PO BID [facility] Last Admin: 02/04/17 09:15 Dose: 8.6 mg Tamsulosin HCl (Flomax) 0.4 mg PO DAILY [facility] Last Admin: 02/04/17 09:15 Dose: 0.4 mg - Labs Labs: 02/04/17 06:00 02/04/17 06:00 - Respiratory Exam Respiratory Exam: Clear to Ausculation Bilateral - Cardiovascular Exam Cardiovascular Exam: REGULAR RHYTHM, +S1, +S2 Assessment and Plan - Assessment and Plan (Free Text) Assessment: S/P MULTIPLE LEFT KNEE SURGERIES WITH WOUND DEHISCENCE MILD CAD HYPERLIPIDEMIA HYPERTENSION Plan: CONTINUE ANTIBIOTICS, METOPROLOL, LOSARTAN, AMLODIPINE AND ATORVASTATIN PLASTIC SURGERY TO SEE
[2017-02-04] MEDS: DAPTOmycin 700 MG in Sodium Chloride 0.9% 100 ML IV SCH (21:29)
[2017-02-05] MEDS: Cefepime 2 GM in Sodium Chloride 0.9% 100 ML IVPB SCH ×2 (04:38→16:30)
[2017-02-05] MEDS: Lactobacillus Acidophilus 500 MU Cap PO SCH ×2 (08:30→16:31)
--- NOTE | 2017-02-05 12:24 | CP.PCM.PN ---
Subjective - Date & Time of Evaluation Date of Evaluation: 02/05/17 Time of Evaluation: 11:30 - Subjective Subjective: NO NEW COMPLAINTS NO CHEST PAIN OR SOB Objective - Vital Signs/Intake and Output Vital Signs (last 24 hours): Temp Pulse Resp BP Pulse Ox 97.7 F 80 20 174/96 H 98 02/05/17 07:57 02/05/17 08:32 02/05/17 07:57 02/05/17 08:32 02/05/17 07:57 - Medications Medications: Current Medications Acetaminophen (Tylenol 325mg Tab) 650 mg PO Q6 PRN PRN Reason: Fever >100.4 F Last Admin: 02/05/17 05:48 Dose: 650 mg Acetaminophen (Tylenol 325mg Tab) 650 mg PO Q6 PRN PRN Reason: Pain, Mild (1-3) Last Admin: 01/30/17 17:06 Dose: 650 mg Allopurinol (Zyloprim) 100 mg PO DAILY [facility] Last Admin: 02/05/17 08:31 Dose: 100 mg Amlodipine Besylate (Norvasc) 5 mg PO DAILY [facility] Last Admin: 02/05/17 08:32 Dose: 5 mg Atorvastatin Calcium (Lipitor) 10 mg PO HS [facility] Last Admin: 02/04/17 21:31 Dose: 10 mg Docusate Sodium (Colace) 100 mg PO BID [facility] Last Admin: 02/05/17 08:31 Dose: 100 mg Ferrous Sulfate (Feosol) 325 mg PO TID [facility] Last Admin: 02/05/17 08:31 Dose: 325 mg Cefepime HCl 2 gm/ Sodium (Chloride) 100 mls @ 100 mls/hr IVPB Q12@0500,1700 [facility] Last Admin: 02/05/17 04:38 Dose: 100 mls/hr Daptomycin 700 mg/ Sodium (Chloride) 100 mls @ 100 mls/hr IV DAILY@2200 [facility] Stop: 03/01/17 21:01 Last Admin: 02/04/17 21:29 Dose: 100 mls/hr Lactobacillus Acidophilus (Bacid Acidophilus) 1 cap PO BID [facility] Last Admin: 02/05/17 08:30 Dose: 1 cap Losartan Potassium (Cozaar) 100 mg PO DAILY [facility] Last Admin: 02/05/17 08:31 Dose: 100 mg Metoprolol Tartrate (Lopressor) 50 mg PO Q12 [facility] Last Admin: 02/05/17 08:30 Dose: 50 mg Sennosides (Senokot Tab) 8.6 mg PO BID [facility] Last Admin: 02/05/17 08:32 Dose: 8.6 mg Tamsulosin HCl (Flomax) 0.4 mg PO DAILY [facility] Last Admin: 02/05/17 08:32 Dose: 0.4 mg - Labs Labs: 02/04/17 06:00 02/04/17 06:00 - Respiratory Exam Respiratory Exam: Clear to Ausculation Bilateral - Cardiovascular Exam Cardiovascular Exam: REGULAR RHYTHM, +S1, +S2 Assessment and Plan - Assessment and Plan (Free Text) Assessment: S/P MULTIPLE LEFT KNEE SURGERIES AND TRAUMA WITH WOUND DEHISCENCE MILD CAD HYPERTENSION HYPERLIPIDEMIA Plan: CONTINUE ANTIBIOTICS, AMLODIPINE, METOPROLOL, LOSARTAN AND ATORVASTATIN
[2017-02-05] MEDS: DAPTOmycin 700 MG in Sodium Chloride 0.9% 100 ML IV SCH (21:49)
[2017-02-06] MEDS: Cefepime 2 GM in Sodium Chloride 0.9% 100 ML IVPB SCH ×3 (05:21→18:31)
[2017-02-06] MEDS: Lactobacillus Acidophilus 500 MU Cap PO SCH ×2 (08:50→17:13)
--- NOTE | 2017-02-06 11:47 | CP.PCM.PN ---
Subjective - Date & Time of Evaluation Date of Evaluation: 02/06/17 Time of Evaluation: 11:30 - Subjective Subjective: s- PT WITHOUT COMPLAINTS; DISCUSSED THE CONSULT OF dr Bird WITH PT Objective - Vital Signs/Intake and Output Vital Signs (last 24 hours): Temp Pulse Resp BP Pulse Ox 97.7 F 84 20 168/94 H 99 02/06/17 08:05 02/06/17 08:53 02/06/17 08:05 02/06/17 08:53 02/06/17 08:05 - Medications Medications: Current Medications Acetaminophen (Tylenol 325mg Tab) 650 mg PO Q6 PRN PRN Reason: Fever >100.4 F Last Admin: 02/05/17 05:48 Dose: 650 mg Acetaminophen (Tylenol 325mg Tab) 650 mg PO Q6 PRN PRN Reason: Pain, Mild (1-3) Last Admin: 02/05/17 21:41 Dose: 650 mg Allopurinol (Zyloprim) 100 mg PO DAILY [facility] Last Admin: 02/06/17 08:49 Dose: 100 mg Amlodipine Besylate (Norvasc) 5 mg PO DAILY [facility] Last Admin: 02/06/17 08:53 Dose: 5 mg Atorvastatin Calcium (Lipitor) 10 mg PO HS [facility] Last Admin: 02/05/17 21:41 Dose: 10 mg Docusate Sodium (Colace) 100 mg PO BID [facility] Last Admin: 02/06/17 08:49 Dose: 100 mg Ferrous Sulfate (Feosol) 325 mg PO TID [facility] Last Admin: 02/06/17 08:49 Dose: 325 mg Daptomycin 700 mg/ Sodium (Chloride) 100 mls @ 100 mls/hr IV DAILY@2200 [facility] Stop: 03/01/17 21:01 Last Admin: 02/05/17 21:49 Dose: 100 mls/hr Lactobacillus Acidophilus (Bacid Acidophilus) 1 cap PO BID [facility] Last Admin: 02/06/17 08:50 Dose: 1 cap Losartan Potassium (Cozaar) 100 mg PO DAILY [facility] Last Admin: 02/06/17 08:53 Dose: 100 mg Metoprolol Tartrate (Lopressor) 50 mg PO Q12 [facility] Last Admin: 02/06/17 08:52 Dose: 50 mg Sennosides (Senokot Tab) 8.6 mg PO BID [facility] Last Admin: 02/06/17 08:49 Dose: 8.6 mg Tamsulosin HCl (Flomax) 0.4 mg PO DAILY [facility] Last Admin: 02/06/17 08:49 Dose: 0.4 mg - Labs Labs: 02/04/17 06:00 02/04/17 06:00 - Skin Additional comments: oBJECTIVE: afebrile VSS systemic exam - wnl Musculoskekltal: L knee wound improving no tenederness orthopedically stable further mgmt at this point is per DR Bird KNEE IMMOBILIZER TO REMAIN INTACT
--- NOTE | 2017-02-06 17:12 | CP.PCM.PN ---
Subjective - Date & Time of Evaluation Date of Evaluation: 02/06/17 Time of Evaluation: 17:12 - Subjective Subjective: I D NOTE HAVE REORDERED DAPTOMYCIN AND MEROPENEM CPK ALSO ORDERED DISCUSSED C ALL NOTES REVIEWED Objective - Vital Signs/Intake and Output Vital Signs (last 24 hours): Temp Pulse Resp BP Pulse Ox 98.8 F 97 H 20 157/93 H 98 02/06/17 16:23 02/06/17 16:23 02/06/17 16:23 02/06/17 16:23 02/06/17 16:23 - Medications Medications: Current Medications Acetaminophen (Tylenol 325mg Tab) 650 mg PO Q6 PRN PRN Reason: Fever >100.4 F Last Admin: 02/05/17 05:48 Dose: 650 mg Acetaminophen (Tylenol 325mg Tab) 650 mg PO Q6 PRN PRN Reason: Pain, Mild (1-3) Last Admin: 02/05/17 21:41 Dose: 650 mg Allopurinol (Zyloprim) 100 mg PO DAILY [facility] Last Admin: 02/06/17 08:49 Dose: 100 mg Amlodipine Besylate (Norvasc) 5 mg PO DAILY [facility] Last Admin: 02/06/17 08:53 Dose: 5 mg Atorvastatin Calcium (Lipitor) 10 mg PO HS [facility] Last Admin: 02/05/17 21:41 Dose: 10 mg Docusate Sodium (Colace) 100 mg PO BID [facility] Last Admin: 02/06/17 08:49 Dose: 100 mg Ferrous Sulfate (Feosol) 325 mg PO TID [facility] Last Admin: 02/06/17 12:32 Dose: 325 mg Daptomycin 700 mg/ Sodium (Chloride) 100 mls @ 100 mls/hr IV DAILY@2200 [facility] Stop: 03/01/17 21:01 Last Admin: 02/05/17 21:49 Dose: 100 mls/hr Cefepime HCl 2 gm/ Sodium (Chloride) 100 mls @ 100 mls/hr IVPB Q12@0500,1700 [facility] Lactobacillus Acidophilus (Bacid Acidophilus) 1 cap PO BID [facility] Last Admin: 02/06/17 08:50 Dose: 1 cap Losartan Potassium (Cozaar) 100 mg PO DAILY [facility] Last Admin: 02/06/17 08:53 Dose: 100 mg Metoprolol Tartrate (Lopressor) 50 mg PO Q12 [facility] Last Admin: 02/06/17 08:52 Dose: 50 mg Sennosides (Senokot Tab) 8.6 mg PO BID [facility] Last Admin: 02/06/17 08:49 Dose: 8.6 mg Tamsulosin HCl (Flomax) 0.4 mg PO DAILY [facility] Last Admin: 02/06/17 08:49 Dose: 0.4 mg - Labs Labs: 02/04/17 06:00 02/04/17 06:00
[2017-02-06] MEDS: DAPTOmycin 700 MG in Sodium Chloride 0.9% 100 ML IV SCH (21:30)
[2017-02-07] MEDS: Cefepime 2 GM in Sodium Chloride 0.9% 100 ML IVPB SCH ×2 (05:15→16:30)
[2017-02-07] MEDS: Lactobacillus Acidophilus 500 MU Cap PO SCH ×2 (08:59→16:28)
--- NOTE | 2017-02-07 12:16 | CP.PCM.PN ---
Subjective - Date & Time of Evaluation Date of Evaluation: 02/07/17 Time of Evaluation: 10:00 - Subjective Subjective: NO COMPLAINTS FEELING BETTER Objective - Vital Signs/Intake and Output Vital Signs (last 24 hours): Temp Pulse Resp BP Pulse Ox 98.1 F 90 20 155/83 H 96 02/07/17 08:15 02/07/17 08:57 02/07/17 08:15 02/07/17 08:57 02/07/17 08:15 - Medications Medications: Current Medications Acetaminophen (Tylenol 325mg Tab) 650 mg PO Q6 PRN PRN Reason: Fever >100.4 F Last Admin: 02/05/17 05:48 Dose: 650 mg Acetaminophen (Tylenol 325mg Tab) 650 mg PO Q6 PRN PRN Reason: Pain, Mild (1-3) Last Admin: 02/05/17 21:41 Dose: 650 mg Allopurinol (Zyloprim) 100 mg PO DAILY [facility] Last Admin: 02/07/17 08:55 Dose: 100 mg Amlodipine Besylate (Norvasc) 5 mg PO DAILY [facility] Last Admin: 02/07/17 08:56 Dose: 5 mg Atorvastatin Calcium (Lipitor) 10 mg PO HS [facility] Last Admin: 02/06/17 22:00 Dose: 10 mg Docusate Sodium (Colace) 100 mg PO BID [facility] Last Admin: 02/07/17 08:57 Dose: 100 mg Ferrous Sulfate (Feosol) 325 mg PO TID [facility] Last Admin: 02/07/17 08:55 Dose: 325 mg Daptomycin 700 mg/ Sodium (Chloride) 100 mls @ 100 mls/hr IV DAILY@2200 [facility] Stop: 03/01/17 21:01 Last Admin: 02/06/17 21:30 Dose: 100 mls/hr Cefepime HCl 2 gm/ Sodium (Chloride) 100 mls @ 100 mls/hr IVPB Q12@0500,1700 [facility] Last Admin: 02/07/17 05:15 Dose: 100 mls/hr Lactobacillus Acidophilus (Bacid Acidophilus) 1 cap PO BID [facility] Last Admin: 02/07/17 08:59 Dose: 1 cap Losartan Potassium (Cozaar) 100 mg PO DAILY [facility] Last Admin: 02/07/17 08:57 Dose: 100 mg Metoprolol Tartrate (Lopressor) 50 mg PO Q12 [facility] Last Admin: 02/07/17 08:56 Dose: 50 mg Sennosides (Senokot Tab) 8.6 mg PO BID [facility] Last Admin: 02/07/17 08:56 Dose: 8.6 mg Tamsulosin HCl (Flomax) 0.4 mg PO DAILY [facility] Last Admin: 02/07/17 08:55 Dose: 0.4 mg - Labs Labs: 02/04/17 06:00 02/04/17 06:00 - Respiratory Exam Respiratory Exam: Clear to Ausculation Bilateral - Cardiovascular Exam Cardiovascular Exam: REGULAR RHYTHM, +S1, +S2 - Additional Findings Additional findings: NOTES OF DR NATION AND DR PORTER REVIEWED PT ON CEFEPIME AND DAPTOMYCIN Assessment and Plan - Assessment and Plan (Free Text) Assessment: S/P MULTIPLE LEFT KNEE SURGERIES WITH WOUND DEHISCENCE MILD CAD HYPERTENSION HYPERLIPIDEMIA Plan: CONTINUE ANTIBIOTICS, LOSARTAN, AMLODIPINE, METOPROLOL AND ATORVASTATIN PLASTIC SURGERY TO SEE AGAIN
[2017-02-07] MEDS: DAPTOmycin 700 MG in Sodium Chloride 0.9% 100 ML IV SCH (21:14)
[2017-02-08] MEDS: Cefepime 2 GM in Sodium Chloride 0.9% 100 ML IVPB SCH ×2 (04:47→17:01)
[2017-02-08] MEDS: Lactobacillus Acidophilus 500 MU Cap PO SCH ×2 (09:31→16:59)
--- NOTE | 2017-02-08 10:37 | CP.PCM.PN ---
Subjective - Date & Time of Evaluation Date of Evaluation: 02/08/17 Time of Evaluation: 10:30 - Subjective Subjective: Hospitalist Progress Note (Patient was seen and examined at 10:30 AM 02/08/17) Very pleasant 76 year old male who is S/P Left TKR on 12/13/16. He was discharged from TCU on 12/24/16 and afterwards fell down onto his left knee the very next day from his wheel chair leading to surgical wound dehiscence. He was admitted [facility] in [place], [place] where he received 3 units of PRBC and a wound vac was placed. He was then transferred to [facility]. He underwent Left Patella/Ligament Reconstruction and wound vac placement on 01/10/17 Upon FULL ROS: Patient very frustrated about the length of time that he has been here and would like to speak with ID Dr. Quintero concerning the length of antibiotic treatment through is Right Arm PICC Line Soft bowel movements but not diarrhea with the Ensure NO other complaints upon FULL ROS Exam: HEENT: NCA, EOMI, PERRLA, NO lymphadenopathy, NO thyromegaly, NO pharyngeal erythema/exudate, Nasal Turbinates are moist/nonerythematous/nonedematous, Oral mucosa is moist Cardio: NS1 and NS2, NO M/R/G Resp: CTA B/L, NO R/R/W GI: BSx4, Soft, NT, ND, NO HSM, NO guarding/rebound tenderness Neuro: CN II through XII Extremities: Pulses are strong and equal, Capillary Refill is 2 seconds, 1+ Pitting Edema involving the Left entire Left Leg which has Wound Vac In Place ( wound is not visible under the wound vac) Assessment and Plan: 1). Left Knee Wound Dehiscence and S/P Left Patella/Ligament Reconstruction and wound vac placement on 01/10/17. Wound Culture + VRE and Psuedomonas Daptomycin 700 mg IV 1x/day Maxipime 2 gm IV 2x/day I spoke with ID Dr. Quintero today 02/08/17 and patient will need a total of 6 weeks of IV antibiotics from 01/10/17 through Right Arm PICC Line Wound Vac will need to be changed on Tuesday02/11/17 I spoke with Plastic Surgeon Dr. Blake today 02/08/17 and he explained that the wound is larger at 12x6 cm but without signs of infection, that patient will eventually need gastrocnemius muscle flap placement over wound. However, he will need maximization of his nutritional status prior to this and he will need re-evaluation by Orthopedics Dr. Heard on Tuesday02/14/17 as the patellar tendon is no longer visible Dietary Consult has been placed 02/08/17 2). Hx HTN Losartan 100 mg PO 1x/day Metoprolol 50 mg PO Q12H Norvasc 5 mg PO 1x/day was increased to 10 mg PO 1x/day on 02/08/17 for better blood pressure control 3). Hx Acute Blood Loss Anemia Please see HPI above Feosol 325 mg PO TID F/U CBC 02/09/17 4). Hx BPH Flomax 0.4 mg PO 1x/day 5). Hx Gout Allopurinol 100 mg PO 1x/day 6). Hx HLD Atorvastatin 10 mg PO 1x/day 7). Hx Constipation Dulcolax 10 mg [place] Daily Colace 100 mg PO 2x/day He is moving his bowels and they are soft stating that the Ensure that he is being given to increase his protein level, is causing him to have bowel movements as he believes he is lactose intolerant 8). Prophylactic Measures Tylenol 650 mg PO Q6H PRN Fever and Mild Pain Lactobacillus Sennisides NO anticoagulation secondary to the Hx of Acute Blood Loss Anemia (Assessment and Plan #3) Mina Umanzor D.O. Objective - Vital Signs/Intake and Output Vital Signs (last 24 hours): Temp Pulse Resp BP Pulse Ox 97.9 F 86 20 163/92 H 94 L 02/08/17 07:59 02/08/17 09:33 02/08/17 07:59 02/08/17 09:33 02/08/17 07:59 - Medications Medications: Current Medications Acetaminophen (Tylenol 325mg Tab) 650 mg PO Q6 PRN PRN Reason: Fever >100.4 F Last Admin: 02/05/17 05:48 Dose: 650 mg Acetaminophen (Tylenol 325mg Tab) 650 mg PO Q6 PRN PRN Reason: Pain, Mild (1-3) Last Admin: 02/07/17 21:59 Dose: 650 mg Allopurinol (Zyloprim) 100 mg PO DAILY [facility] Last Admin: 02/08/17 09:33 Dose: 100 mg Atorvastatin Calcium (Lipitor) 10 mg PO HS [facility] Last Admin: 02/07/17 21:10 Dose: 10 mg Docusate Sodium (Colace) 100 mg PO BID [facility] Last Admin: 02/08/17 09:32 Dose: 100 mg Ferrous Sulfate (Feosol) 325 mg PO TID [facility] Last Admin: 02/08/17 09:31 Dose: 325 mg Daptomycin 700 mg/ Sodium (Chloride) 100 mls @ 100 mls/hr IV DAILY@2200 [facility] Stop: 03/01/17 21:01 Last Admin: 02/07/17 21:14 Dose: 100 mls/hr Cefepime HCl 2 gm/ Sodium (Chloride) 100 mls @ 100 mls/hr IVPB Q12@0500,1700 [facility] Last Admin: 02/08/17 04:47 Dose: 100 mls/hr Lactobacillus Acidophilus (Bacid Acidophilus) 1 cap PO BID [facility] Last Admin: 02/08/17 09:31 Dose: 1 cap Losartan Potassium (Cozaar) 100 mg PO DAILY [facility] Last Admin: 02/08/17 09:33 Dose: 100 mg Metoprolol Tartrate (Lopressor) 50 mg PO Q12 [facility] Last Admin: 02/08/17 09:32 Dose: 50 mg Sennosides (Senokot Tab) 8.6 mg PO BID [facility] Last Admin: 02/08/17 09:34 Dose: 8.6 mg Tamsulosin HCl (Flomax) 0.4 mg PO DAILY [facility] Last Admin: 02/08/17 09:34 Dose: 0.4 mg - Labs Labs: 02/04/17 06:00 02/04/17 06:00
--- NOTE | 2017-02-08 10:45 | CP.PCM.PN ---
Subjective - Date & Time of Evaluation Date of Evaluation: 02/08/17 Time of Evaluation: 08:30 - Subjective Subjective: NO CHEST PAIN OR SOB Objective - Vital Signs/Intake and Output Vital Signs (last 24 hours): Temp Pulse Resp BP Pulse Ox 97.9 F 86 20 163/92 H 94 L 02/08/17 07:59 02/08/17 09:33 02/08/17 07:59 02/08/17 09:33 02/08/17 07:59 - Medications Medications: Current Medications Acetaminophen (Tylenol 325mg Tab) 650 mg PO Q6 PRN PRN Reason: Fever >100.4 F Last Admin: 02/05/17 05:48 Dose: 650 mg Acetaminophen (Tylenol 325mg Tab) 650 mg PO Q6 PRN PRN Reason: Pain, Mild (1-3) Last Admin: 02/07/17 21:59 Dose: 650 mg Allopurinol (Zyloprim) 100 mg PO DAILY [facility] Last Admin: 02/08/17 09:33 Dose: 100 mg Amlodipine Besylate (Norvasc) 10 mg PO DAILY [facility] Atorvastatin Calcium (Lipitor) 10 mg PO HS [facility] Last Admin: 02/07/17 21:10 Dose: 10 mg Docusate Sodium (Colace) 100 mg PO BID [facility] Last Admin: 02/08/17 09:32 Dose: 100 mg Ferrous Sulfate (Feosol) 325 mg PO TID [facility] Last Admin: 02/08/17 09:31 Dose: 325 mg Daptomycin 700 mg/ Sodium (Chloride) 100 mls @ 100 mls/hr IV DAILY@2200 [facility] Stop: 03/01/17 21:01 Last Admin: 02/07/17 21:14 Dose: 100 mls/hr Cefepime HCl 2 gm/ Sodium (Chloride) 100 mls @ 100 mls/hr IVPB Q12@0500,1700 [facility] Last Admin: 02/08/17 04:47 Dose: 100 mls/hr Lactobacillus Acidophilus (Bacid Acidophilus) 1 cap PO BID [facility] Last Admin: 02/08/17 09:31 Dose: 1 cap Losartan Potassium (Cozaar) 100 mg PO DAILY [facility] Last Admin: 02/08/17 09:33 Dose: 100 mg Metoprolol Tartrate (Lopressor) 50 mg PO Q12 [facility] Last Admin: 02/08/17 09:32 Dose: 50 mg Sennosides (Senokot Tab) 8.6 mg PO BID [facility] Last Admin: 02/08/17 09:34 Dose: 8.6 mg Tamsulosin HCl (Flomax) 0.4 mg PO DAILY [facility] Last Admin: 02/08/17 09:34 Dose: 0.4 mg - Labs Labs: 02/04/17 06:00 02/04/17 06:00 - Respiratory Exam Respiratory Exam: Clear to Ausculation Bilateral - Cardiovascular Exam Cardiovascular Exam: REGULAR RHYTHM, +S1, +S2 - Additional Findings Additional findings: DR PORTER SPOKEN TO YESTERDAY AND HE STATED THAT THE PATIENT NEEDS TO STAY ON IV ANTIBIOTICS FOR AT LEAST [address] BAER SPOKEN TO YESTERDAY AND HE WILL SEE THE PATIENT LATER TODAY Assessment and Plan - Assessment and Plan (Free Text) Assessment: S/P MULTIPLE LEFT KNEE SURGERIES WITH WOUND DEHISCENCE MILD CAD HYPERTENSION HYPERLIPIDEMIA Plan: CONTINUE IV ANTIBIOTICS, ASPIRIN, LOSARTAN, AMLODIPINE, METOPROLOL AND ATORVASTATIN DR BAER TO SEE LATER TODAY
--- NOTE | 2017-02-08 18:43 | PCM.IRP ---
Subjective - Subjective Subjective: Less depressed. Wishes to be discharged soon. Left Knee: Wound is larger (12 x 6 cm). No signs of infection. Difficult to visualize the patellar tendon repair as well as the hardware. He is able to actively extend the knee. IMP: Concerned about his poor nutritional status delaying the needed medial gastrocnemius muscle flap. PLAN: Continue nutritional support and wound vac therapy. May consider discharge after Dr. Chan evaluates him next week. He is willing to be followed in the wound care center at [facility] twice a week for a wound vac change. Will speak to the weld technician about an out-patient nutrition plan. CBC, Total metabolic profile in am. Neil Blake M.D. Objective - Vital Signs/Intake and Output Vital Signs (last 24 hours): Vital Signs - 24 hr 02/07/17 02/07/17 02/08/17 20:14 21:10 07:59 Temperature 99.1 F 97.9 F Pulse Rate 54 L 88 86 Respiratory 20 20 Rate Blood Pressure 145/73 153/83 H 163/91 H O2 Sat by Pulse 96 94 L Oximetry 02/08/17 02/08/17 02/08/17 09:32 09:33 15:48 Temperature 98.2 F Pulse Rate 86 86 106 H Respiratory 20 Rate Blood Pressure 163/41 H 163/92 H 126/55 L O2 Sat by Pulse 98 Oximetry Intake and Output (last 12 hours): Intake & Output 02/07/17 02/08/17 02/08/17 18:59 06:59 18:59 Weight 236 lb Other: Voiding Method Urinal Urinal Urinal - Medications Medications: Current Medications Acetaminophen (Tylenol 325mg Tab) 650 mg PO Q6 PRN PRN Reason: Fever >100.4 F Last Admin: 02/05/17 05:48 Dose: 650 mg Acetaminophen (Tylenol 325mg Tab) 650 mg PO Q6 PRN PRN Reason: Pain, Mild (1-3) Last Admin: 02/07/17 21:59 Dose: 650 mg Allopurinol (Zyloprim) 100 mg PO DAILY [facility] Last Admin: 02/08/17 09:33 Dose: 100 mg Amlodipine Besylate (Norvasc) 10 mg PO DAILY [facility] Atorvastatin Calcium (Lipitor) 10 mg PO HS [facility] Last Admin: 02/07/17 21:10 Dose: 10 mg Docusate Sodium (Colace) 100 mg PO BID [facility] Last Admin: 02/08/17 17:00 Dose: 100 mg Ferrous Sulfate (Feosol) 325 mg PO TID [facility] Last Admin: 02/08/17 17:00 Dose: 325 mg Daptomycin 700 mg/ Sodium (Chloride) 100 mls @ 100 mls/hr IV DAILY@2200 [facility] Stop: 03/01/17 21:01 Last Admin: 02/07/17 21:14 Dose: 100 mls/hr Cefepime HCl 2 gm/ Sodium (Chloride) 100 mls @ 100 mls/hr IVPB Q12@0500,1700 [facility] Last Admin: 02/08/17 17:01 Dose: 100 mls/hr Lactobacillus Acidophilus (Bacid Acidophilus) 1 cap PO BID [facility] Last Admin: 02/08/17 16:59 Dose: 1 cap Losartan Potassium (Cozaar) 100 mg PO DAILY [facility] Last Admin: 02/08/17 09:33 Dose: 100 mg Metoprolol Tartrate (Lopressor) 50 mg PO Q12 [facility] Last Admin: 02/08/17 09:32 Dose: 50 mg Sennosides (Senokot Tab) 8.6 mg PO BID [facility] Last Admin: 02/08/17 17:00 Dose: 8.6 mg Tamsulosin HCl (Flomax) 0.4 mg PO DAILY [facility] Last Admin: 02/08/17 09:34 Dose: 0.4 mg
[2017-02-08] MEDS: DAPTOmycin 700 MG in Sodium Chloride 0.9% 100 ML IV SCH (21:07)
[2017-02-09] MEDS: Cefepime 2 GM in Sodium Chloride 0.9% 100 ML IVPB SCH ×2 (04:26→17:08)
[2017-02-09] MEDS: Lactobacillus Acidophilus 500 MU Cap PO SCH ×2 (08:56→17:08)
[2017-02-09 09:56] LABS: HEMATOCRIT 34.3 % (35.0-51.0); MEAN CELL VOLUME 84.9 fl (80.0-94.0); MEAN CORPUSCULAR HGB CONC 31.8 g/dL (33.0-37.0); RED CELL DISTRIBUTION WIDTH 18.1 % (11.5-14.5); WHITE BLOOD COUNT 5.4 K/uL (4.8-10.8)
[2017-02-09 10:12] LABS: ALB/GLOB RATIO 1.1 (1.0-2.1); ALKALINE PHOSPHATASE 81 U/L (38-126); ALT/SGPT 142 U/L (21-72); AST/SGOT 618 U/L (17-59); BILIRUBIN,TOTAL 0.3 mg/dl (0.2-1.3); BLOOD UREA NITROGEN 21 mg/dl (9-20); CALCIUM 9.7 mg/dL (8.4-10.2); CARBON DIOXIDE 27 mmol/L (22-30); CHLORIDE 106 mmol/L (98-107); GFR AFRICAN-AMERICAN > 60; GLUCOSE,RANDOM 135 mg/dL (75-110); POTASSIUM 4.2 MMOL/L (3.6-5.0); SODIUM 139 mmol/l (132-148); TOTAL PROTEIN 5.9 G/DL (6.3-8.2)
[2017-02-09] MEDS ORDERED: Oxycodone/Acetaminophen 5/325 mg Tab PO PRN (13:38)
--- NOTE | 2017-02-09 15:22 | CP.PCM.PN ---
Subjective - Date & Time of Evaluation Date of Evaluation: 02/09/17 Time of Evaluation: 13:20 - Subjective Subjective: NO NEW COMPLAINTS NO CHEST PAIN OR SOB Objective - Vital Signs/Intake and Output Vital Signs (last 24 hours): Temp Pulse Resp BP Pulse Ox 98.2 F 95 H 20 158/92 H 98 02/09/17 08:12 02/09/17 08:55 02/09/17 08:12 02/09/17 08:55 02/09/17 08:12 - Medications Medications: Current Medications Acetaminophen (Tylenol 325mg Tab) 650 mg PO Q6 PRN PRN Reason: Fever >100.4 F Last Admin: 02/05/17 05:48 Dose: 650 mg Acetaminophen (Tylenol 325mg Tab) 650 mg PO Q6 PRN PRN Reason: Pain, Mild (1-3) Last Admin: 02/08/17 21:04 Dose: 650 mg Allopurinol (Zyloprim) 100 mg PO DAILY [facility] Last Admin: 02/09/17 09:00 Dose: 100 mg Amlodipine Besylate (Norvasc) 10 mg PO DAILY [facility] Last Admin: 02/09/17 08:54 Dose: 10 mg Atorvastatin Calcium (Lipitor) 10 mg PO HS [facility] Last Admin: 02/08/17 21:03 Dose: 10 mg Docusate Sodium (Colace) 100 mg PO BID [facility] Last Admin: 02/09/17 08:55 Dose: 100 mg Ferrous Sulfate (Feosol) 325 mg PO TID [facility] Last Admin: 02/09/17 13:06 Dose: 325 mg Daptomycin 700 mg/ Sodium (Chloride) 100 mls @ 100 mls/hr IV DAILY@2200 [facility] Stop: 03/01/17 21:01 Last Admin: 02/08/17 21:07 Dose: 100 mls/hr Cefepime HCl 2 gm/ Sodium (Chloride) 100 mls @ 100 mls/hr IVPB Q12@0500,1700 [facility] Last Admin: 02/09/17 04:26 Dose: 100 mls/hr Lactobacillus Acidophilus (Bacid Acidophilus) 1 cap PO BID [facility] Last Admin: 02/09/17 08:56 Dose: 1 cap Losartan Potassium (Cozaar) 100 mg PO DAILY [facility] Last Admin: 02/09/17 08:55 Dose: 100 mg Metoprolol Tartrate (Lopressor) 50 mg PO Q12 [facility] Last Admin: 02/09/17 08:54 Dose: 50 mg Oxycodone/Acetaminophen (Percocet 5/325 Mg Tab) 1 tab PO Q6 PRN PRN Reason: severe pain 8-10 Stop: 02/12/17 13:39 Last Admin: 02/09/17 13:49 Dose: 1 tab Sennosides (Senokot Tab) 8.6 mg PO BID [facility] Last Admin: 02/09/17 08:56 Dose: 8.6 mg Tamsulosin HCl (Flomax) 0.4 mg PO DAILY [facility] Last Admin: 02/09/17 08:54 Dose: 0.4 mg - Labs Labs: 02/09/17 09:00 02/09/17 09:00 - Respiratory Exam Respiratory Exam: Clear to Ausculation Bilateral - Cardiovascular Exam Cardiovascular Exam: REGULAR RHYTHM, +S1, +S2 - Additional Findings Additional findings: DR BAER'S NOTE SEEN-HE WANTS HIM TO STAY UNTIL DR NATION SEES HIM NEXT WEEK Assessment and Plan - Assessment and Plan (Free Text) Assessment: LEFT KNEE SURGICAL WOUND DEHISCENCE MILD CAD HYPERTENSION HYPERLIPIDEMIA Plan: CONTINUE IV ANTIBIOTICS, METOPROLOL, ATORVASTATIN, AMLODIPINE AND LOSARTAN CONTINUE SUBACUTE REHAB
--- NOTE | 2017-02-09 17:09 | CP.PCM.PN ---
Subjective - Date & Time of Evaluation Date of Evaluation: 02/09/17 Time of Evaluation: 16:11 - Subjective Subjective: ID NOTE LFTs are elevated will order US of abdomen c attention to liver followup LFTs ordered have discontinued Daptomycin decreased dose of maxipeme at present will awit labs before ordering antibiotics for home Objective - Vital Signs/Intake and Output Vital Signs (last 24 hours): Temp Pulse Resp BP Pulse Ox 98.2 F 95 H 20 158/92 H 98 02/09/17 08:12 02/09/17 08:55 02/09/17 08:12 02/09/17 08:55 02/09/17 08:12 - Medications Medications: Current Medications Acetaminophen (Tylenol 325mg Tab) 650 mg PO Q6 PRN PRN Reason: Fever >100.4 F Last Admin: 02/05/17 05:48 Dose: 650 mg Acetaminophen (Tylenol 325mg Tab) 650 mg PO Q6 PRN PRN Reason: Pain, Mild (1-3) Last Admin: 02/08/17 21:04 Dose: 650 mg Allopurinol (Zyloprim) 100 mg PO DAILY [facility] Last Admin: 02/09/17 09:00 Dose: 100 mg Amlodipine Besylate (Norvasc) 10 mg PO DAILY [facility] Last Admin: 02/09/17 08:54 Dose: 10 mg Atorvastatin Calcium (Lipitor) 10 mg PO HS [facility] Last Admin: 02/08/17 21:03 Dose: 10 mg Docusate Sodium (Colace) 100 mg PO BID [facility] Last Admin: 02/09/17 08:55 Dose: 100 mg Ferrous Sulfate (Feosol) 325 mg PO TID [facility] Last Admin: 02/09/17 13:06 Dose: 325 mg Daptomycin 700 mg/ Sodium (Chloride) 100 mls @ 100 mls/hr IV DAILY@2200 [facility] Stop: 03/01/17 21:01 Last Admin: 02/08/17 21:07 Dose: 100 mls/hr Cefepime HCl 2 gm/ Sodium (Chloride) 100 mls @ 100 mls/hr IVPB Q12@0500,1700 [facility] Last Admin: 02/09/17 04:26 Dose: 100 mls/hr Lactobacillus Acidophilus (Bacid Acidophilus) 1 cap PO BID [facility] Last Admin: 02/09/17 08:56 Dose: 1 cap Losartan Potassium (Cozaar) 100 mg PO DAILY [facility] Last Admin: 02/09/17 08:55 Dose: 100 mg Metoprolol Tartrate (Lopressor) 50 mg PO Q12 [facility] Last Admin: 02/09/17 08:54 Dose: 50 mg Oxycodone/Acetaminophen (Percocet 5/325 Mg Tab) 1 tab PO Q6 PRN PRN Reason: severe pain 8-10 Stop: 02/12/17 13:39 Last Admin: 02/09/17 13:49 Dose: 1 tab Sennosides (Senokot Tab) 8.6 mg PO BID [facility] Last Admin: 02/09/17 08:56 Dose: 8.6 mg Tamsulosin HCl (Flomax) 0.4 mg PO DAILY [facility] Last Admin: 02/09/17 08:54 Dose: 0.4 mg - Labs Labs: 02/09/17 09:00 02/09/17 09:00
--- NOTE | 2017-02-09 21:08 | PCM.IRP ---
Subjective - Subjective Subjective: Discussed Mr. Rosenbaum with Dr. Quintero today. Noted that the liver enzymes are elevated. Alb. and T.P. improved: Alb. = 3.1 and T.P. = 5.9. Will view the knee on Tuesday. Neil Blake M.D. Objective - Vital Signs/Intake and Output Vital Signs (last 24 hours): Vital Signs - 24 hr 02/09/17 02/09/17 02/09/17 08:12 08:54 08:55 Temperature 98.2 F Pulse Rate 95 H 95 H 95 H Respiratory 20 Rate Blood Pressure 158/92 H 158/92 H 158/92 H O2 Sat by Pulse 98 Oximetry 02/09/17 18:01 Temperature 98.4 F Pulse Rate 77 Respiratory 20 Rate Blood Pressure 179/89 H O2 Sat by Pulse 96 Oximetry Intake and Output (last 12 hours): Intake & Output 02/09/17 02/09/17 02/10/17 06:59 18:59 06:59 Weight 236 lb Other: Voiding Method Urinal Urinal - Medications Medications: Current Medications Acetaminophen (Tylenol 325mg Tab) 650 mg PO Q6 PRN PRN Reason: Fever >100.4 F Last Admin: 02/05/17 05:48 Dose: 650 mg Acetaminophen (Tylenol 325mg Tab) 650 mg PO Q6 PRN PRN Reason: Pain, Mild (1-3) Last Admin: 02/08/17 21:04 Dose: 650 mg Allopurinol (Zyloprim) 100 mg PO DAILY [facility] Last Admin: 02/09/17 09:00 Dose: 100 mg Amlodipine Besylate (Norvasc) 10 mg PO DAILY [facility] Last Admin: 02/09/17 08:54 Dose: 10 mg Atorvastatin Calcium (Lipitor) 10 mg PO HS [facility] Last Admin: 02/08/17 21:03 Dose: 10 mg Docusate Sodium (Colace) 100 mg PO BID [facility] Last Admin: 02/09/17 17:06 Dose: 100 mg Ferrous Sulfate (Feosol) 325 mg PO TID [facility] Last Admin: 02/09/17 17:05 Dose: 325 mg Daptomycin 700 mg/ Sodium (Chloride) 100 mls @ 100 mls/hr IV DAILY@2200 [facility] Stop: 03/01/17 21:01 Last Admin: 02/08/17 21:07 Dose: 100 mls/hr Cefepime HCl 1 gm/ Sodium (Chloride) 100 mls @ 100 mls/hr IVPB DAILY [facility] Lactobacillus Acidophilus (Bacid Acidophilus) 1 cap PO BID [facility] Last Admin: 02/09/17 17:08 Dose: 1 cap Losartan Potassium (Cozaar) 100 mg PO DAILY [facility] Last Admin: 02/09/17 08:55 Dose: 100 mg Metoprolol Tartrate (Lopressor) 50 mg PO Q12 [facility] Last Admin: 02/09/17 08:54 Dose: 50 mg Oxycodone/Acetaminophen (Percocet 5/325 Mg Tab) 1 tab PO Q6 PRN PRN Reason: severe pain 8-10 Stop: 02/12/17 13:39 Last Admin: 02/09/17 13:49 Dose: 1 tab Sennosides (Senokot Tab) 8.6 mg PO BID [facility] Last Admin: 02/09/17 17:06 Dose: 8.6 mg Tamsulosin HCl (Flomax) 0.4 mg PO DAILY [facility] Last Admin: 02/09/17 08:54 Dose: 0.4 mg - Labs Labs (last 24 hours): Laboratory Results - last 24 hr 02/09/17 02/09/17 09:00 09:00 WBC 5.4 RBC 4.04 L Hgb 10.9 L Hct 34.3 L MCV 84.9 MCH 27.0 MCHC 31.8 L RDW 18.1 H Plt Count 135 Sodium 139 Potassium 4.2 Chloride 106 Carbon Dioxide 27 Anion Gap 10 BUN 21 H Creatinine 1.2 Est GFR ( Amer) > 60 Est GFR (Non-Af Amer) 59 Random Glucose 135 H Calcium 9.7 Total Bilirubin 0.3 AST 618 H D ALT 142 H D Alkaline Phosphatase 81 Total Protein 5.9 L Albumin 3.1 L Globulin 2.8 Albumin/Globulin Ratio 1.1
[2017-02-09] MEDS: DAPTOmycin 700 MG in Sodium Chloride 0.9% 100 ML IV SCH (21:13)
[2017-02-10] MEDS ORDERED: Iohexol 240 (50 ml) PO ONE (07:22)
[2017-02-10] MEDS ORDERED: Iohexol 240 (50 ml) ONE (07:27)
[2017-02-10 08:18] LABS: ALB/GLOB RATIO 1.1 (1.0-2.1); BILIRUBIN,TOTAL 0.5 mg/dl (0.2-1.3); TOTAL PROTEIN 6.4 G/DL (6.3-8.2)
[2017-02-10] MEDS: Lactobacillus Acidophilus 500 MU Cap PO SCH ×2 (10:37→16:23)
--- NOTE | 2017-02-10 10:49 | CP.PCM.PN ---
Subjective - Date & Time of Evaluation Date of Evaluation: 02/10/17 Time of Evaluation: 09:30 - Subjective Subjective: NO COMPLAINTS Objective - Vital Signs/Intake and Output Vital Signs (last 24 hours): Temp Pulse Resp BP Pulse Ox 98.4 F 88 20 161/88 H 99 02/10/17 08:02 02/10/17 10:39 02/10/17 08:02 02/10/17 10:39 02/10/17 08:02 - Medications Medications: Current Medications Allopurinol (Zyloprim) 100 mg PO DAILY [facility] Last Admin: 02/10/17 10:39 Dose: 100 mg Amlodipine Besylate (Norvasc) 10 mg PO DAILY [facility] Last Admin: 02/10/17 10:39 Dose: 10 mg Docusate Sodium (Colace) 100 mg PO BID [facility] Last Admin: 02/10/17 10:38 Dose: 100 mg Ferrous Sulfate (Feosol) 325 mg PO TID [facility] Last Admin: 02/10/17 10:38 Dose: 325 mg Daptomycin 700 mg/ Sodium (Chloride) 100 mls @ 100 mls/hr IV DAILY@2200 [facility] Stop: 03/01/17 21:01 Last Admin: 02/09/17 21:13 Dose: 100 mls/hr Cefepime HCl 1 gm/ Sodium (Chloride) 100 mls @ 100 mls/hr IVPB DAILY@1700 [facility] Lactobacillus Acidophilus (Bacid Acidophilus) 1 cap PO BID [facility] Last Admin: 02/10/17 10:37 Dose: 1 cap Losartan Potassium (Cozaar) 100 mg PO DAILY [facility] Last Admin: 02/10/17 10:39 Dose: 100 mg Metoprolol Tartrate (Lopressor) 50 mg PO Q12 [facility] Last Admin: 02/10/17 10:37 Dose: 50 mg Oxycodone/Acetaminophen (Percocet 5/325 Mg Tab) 1 tab PO Q6 PRN PRN Reason: severe pain 8-10 Stop: 02/12/17 13:39 Last Admin: 02/09/17 13:49 Dose: 1 tab Sennosides (Senokot Tab) 8.6 mg PO BID [facility] Last Admin: 02/10/17 10:38 Dose: 8.6 mg Tamsulosin HCl (Flomax) 0.4 mg PO DAILY [facility] Last Admin: 08/17/17 10:38 Dose: 0.4 mg - Labs Labs: 02/09/17 09:00 02/09/17 09:00 - Respiratory Exam Respiratory Exam: Clear to Ausculation Bilateral - Cardiovascular Exam Cardiovascular Exam: REGULAR RHYTHM, +S1, +S2 - Additional Findings Additional findings: LFT ARE ELEVATED Assessment and Plan - Assessment and Plan (Free Text) Assessment: LEFT KNEE SURGERIES WITH WOUND DEHISCENCE MILD CAD HYPERTENSION HYPERLIPIDEMIA ELEVATED LIVER ENZYMES Plan: ATORVASTATIN AND TYLENOL STOPPED DUE TO ELEVATED LIVER ENZYMES CONTINUE LOSARTAN, AMLODIPINE AND METOPROLOL ABDOMINAL US TODAY
--- NOTE | 2017-02-10 11:12 | CP.PCM.PN ---
Subjective - Date & Time of Evaluation Date of Evaluation: 02/10/17 Time of Evaluation: 11:11 - Subjective Subjective: pt doing well tolerating PT wound vac in place no complaints Objective - Vital Signs/Intake and Output Vital Signs (last 24 hours): Temp Pulse Resp BP Pulse Ox 98.4 F 88 20 161/88 H 99 02/10/17 08:02 02/10/17 10:39 02/10/17 08:02 02/10/17 10:39 02/10/17 08:02 Exam: GEN: WDWN, alert, cooperative HEENT: NCAT, PERRL, EOMI NECK: supple, no JVD, no lymphadenopathy CARDIAC: +S1S2 RRR LUNG: CTAB No WRR ABD: SOFT NT ND BSX4 NO MASSES NO HSM EXT: +pedal pulses, equal sensation +wound vac NEURO: AAOx3 SKIN warm, dry PSYCH normal mood, normal affect - Medications Medications: Current Medications Allopurinol (Zyloprim) 100 mg PO DAILY [facility] Last Admin: 02/10/17 10:39 Dose: 100 mg Amlodipine Besylate (Norvasc) 10 mg PO DAILY [facility] Last Admin: 02/10/17 10:39 Dose: 10 mg Docusate Sodium (Colace) 100 mg PO BID [facility] Last Admin: 02/10/17 10:38 Dose: 100 mg Ferrous Sulfate (Feosol) 325 mg PO TID [facility] Last Admin: 02/10/17 10:38 Dose: 325 mg Daptomycin 700 mg/ Sodium (Chloride) 100 mls @ 100 mls/hr IV DAILY@2200 [facility] Stop: 03/01/17 21:01 Last Admin: 02/09/17 21:13 Dose: 100 mls/hr Cefepime HCl 1 gm/ Sodium (Chloride) 100 mls @ 100 mls/hr IVPB DAILY@1700 [facility] Sodium Chloride (Sodium Chloride 0.9%) 1,000 mls @ 100 mls/hr IV .Q10H [facility] Stop: 02/10/17 21:14 Lactobacillus Acidophilus (Bacid Acidophilus) 1 cap PO BID [facility] Last Admin: 02/10/17 10:37 Dose: 1 cap Losartan Potassium (Cozaar) 100 mg PO DAILY [facility] Last Admin: 02/10/17 10:39 Dose: 100 mg Metoprolol Tartrate (Lopressor) 50 mg PO Q12 [facility] Last Admin: 02/10/17 10:37 Dose: 50 mg Oxycodone/Acetaminophen (Percocet 5/325 Mg Tab) 1 tab PO Q6 PRN PRN Reason: severe pain 8-10 Stop: 02/12/17 13:39 Last Admin: 02/09/17 13:49 Dose: 1 tab Sennosides (Senokot Tab) 8.6 mg PO BID [facility] Last Admin: 02/10/17 10:38 Dose: 8.6 mg Tamsulosin HCl (Flomax) 0.4 mg PO DAILY [facility] Last Admin: 02/10/17 10:38 Dose: 0.4 mg - Labs Labs: 02/09/17 09:00 02/09/17 09:00 Assessment and Plan - Assessment and Plan (Free Text) Plan: 76 year old male who is S/P Left TKR on 12/13/16. He was discharged from TCU on 12/24/16 and afterwards fell down onto his left knee the very next day from his wheel chair leading to surgical wound dehiscence. He was admitted [facility] in [place], [place] where he received 3 units of PRBC and a wound vac was placed. He was then transferred to [facility]. He underwent Left Patella/Ligament Reconstruction and wound vac placement on 01/10/17 Left Knee Wound Dehiscence and S/P Left Patella/Ligament Reconstruction and wound vac placement on 01/10/17. Wound Culture + VRE and Psuedomonas DISCONTINUED 02/09/17 2/2 ELEVATED LFTS -- Daptomycin 700 mg IV 1x/day Decreased Maxipime to 2 gm IV 1x/day 02/09/17 2/2 ELEVATED LFTS Discussed with ID Dr. Quintero and patient will need a total of 6 weeks of IV antibiotics from 01/10/17 through Right Arm PICC Line Wound Vac will need to be changed on Tuesday02/11/[address] Blake patient will eventually need gastrocnemius muscle flap placement over wound. However, he will need maximization of his nutritional status prior to this and he will need re-evaluation by Orthopedics Dr. Heard on Tuesday02/14/17 as the patellar tendon is no longer visible Dietary Consult has been placed 02/08/17 Elevated LFTs abd U/S pending monitor decreased and discontinued offending agents trending down Hx HTN Losartan 100 mg PO 1x/day Metoprolol 50 mg PO Q12H Norvasc 5 mg PO 1x/day was increased to 10 mg PO 1x/day on 02/08/17 for better blood pressure control Hx Acute Blood Loss Anemia Please see HPI above Feosol 325 mg PO TID F/U CBC 02/09/17 Hx BPH Flomax 0.4 mg PO 1x/day Hx Gout Allopurinol 100 mg PO 1x/day Hx HLD Atorvastatin 10 mg PO 1x/day Hx Constipation Dulcolax 10 mg DE Daily Colace 100 mg PO 2x/day He is moving his bowels and they are soft stating that the Ensure that he is being given to increase his protein level, is causing him to have bowel movements as he believes he is lactose intolerant Prophylactic Measures Tylenol 650 mg PO Q6H PRN Fever and Mild Pain Lactobacillus Sennisides NO anticoagulation secondary to the Hx of Acute Blood Loss Anemia (Assessment and Plan #3)
[2017-02-10] MEDS ORDERED: Sodium Chloride 0.9% 1,000 ML IV SCH (11:15)
[2017-02-10] MEDS: Cefepime 1 GM in Sodium Chloride 0.9% 100 ML IVPB SCH (16:23)
[2017-02-11] MEDS: Lactobacillus Acidophilus 500 MU Cap PO SCH ×2 (08:30→17:22)
[2017-02-11 10:20] VITALS: BMI 32.0
[2017-02-11 10:41] LABS: BILIRUBIN,TOTAL 0.3 mg/dl (0.2-1.3); TOTAL PROTEIN 6.3 G/DL (6.3-8.2)
[2017-02-11 10:45] LABS: ALB/GLOB RATIO 1.2 (1.0-2.1)
--- NOTE | 2017-02-11 11:32 | CP.PCM.PN ---
Subjective - Date & Time of Evaluation Date of Evaluation: 02/11/17 Time of Evaluation: 10:00 - Subjective Subjective: NO COMPLAINTS Objective - Vital Signs/Intake and Output Vital Signs (last 24 hours): Temp Pulse Resp BP Pulse Ox 97.9 F 83 20 153/91 H 97 02/11/17 07:58 02/11/17 08:34 02/11/17 07:58 02/11/17 08:34 02/11/17 07:58 - Medications Medications: Current Medications Allopurinol (Zyloprim) 100 mg PO DAILY [facility] Last Admin: 02/11/17 08:35 Dose: 100 mg Amlodipine Besylate (Norvasc) 10 mg PO DAILY [facility] Last Admin: 02/11/17 08:34 Dose: 10 mg Docusate Sodium (Colace) 100 mg PO BID [facility] Last Admin: 02/11/17 08:31 Dose: 100 mg Ferrous Sulfate (Feosol) 325 mg PO TID [facility] Last Admin: 02/11/17 08:32 Dose: 325 mg Cefepime HCl 1 gm/ Sodium (Chloride) 100 mls @ 100 mls/hr IVPB DAILY@1700 [facility] Last Admin: 02/10/17 16:23 Dose: 100 mls/hr Lactobacillus Acidophilus (Bacid Acidophilus) 1 cap PO BID [facility] Last Admin: 02/11/17 08:30 Dose: 1 cap Losartan Potassium (Cozaar) 100 mg PO DAILY [facility] Last Admin: 02/11/17 08:31 Dose: 100 mg Metoprolol Tartrate (Lopressor) 50 mg PO Q12 [facility] Last Admin: 02/11/17 08:33 Dose: 50 mg Oxycodone/Acetaminophen (Percocet 5/325 Mg Tab) 1 tab PO Q6 PRN PRN Reason: severe pain 8-10 Stop: 02/12/17 13:39 Last Admin: 02/09/17 13:49 Dose: 1 tab Sennosides (Senokot Tab) 8.6 mg PO BID [facility] Last Admin: 02/11/17 08:34 Dose: 8.6 mg Tamsulosin HCl (Flomax) 0.4 mg PO DAILY [facility] Last Admin: 02/11/17 08:33 Dose: 0.4 mg - Labs Labs: 02/09/17 09:00 02/09/17 09:00 - Respiratory Exam Respiratory Exam: Clear to Ausculation Bilateral - Cardiovascular Exam Cardiovascular Exam: REGULAR RHYTHM, +S1, +S2 - Additional Findings Additional findings: ELEVATED LFT BUT DECREASING Assessment and Plan - Assessment and Plan (Free Text) Assessment: ELEVATED LFT MILD CAD HYPERTENSION LEFT KNEE SURGERY WITH WOUND DEHISCENCE Plan: CONTINUE AMLODIPINE, METOPROLOL, LOSARTAN, CEFEPIME DAPTOMYCIN, ATORVASTATIN AND TYLENOL DISCONTINUED
[2017-02-11 13:19] LABS: GLUCOSE,RANDOM 187 mg/dL (75-110); TOTAL PROTEIN 6.3 G/DL (6.3-8.2)
[2017-02-11 13:20] LABS: ALB/GLOB RATIO 1.1 (1.0-2.1); ALKALINE PHOSPHATASE 69 U/L (38-126); ALT/SGPT 153 U/L (21-72); AST/SGOT 446 U/L (17-59); BILIRUBIN,TOTAL 0.4 mg/dl (0.2-1.3); BLOOD UREA NITROGEN 20 mg/dl (9-20); CARBON DIOXIDE 25 mmol/L (22-30); CHLORIDE 105 mmol/L (98-107); GFR AFRICAN-AMERICAN > 60; SODIUM 138 mmol/l (132-148)
--- NOTE | 2017-02-11 16:22 | CP.PCM.PN ---
Subjective - Date & Time of Evaluation Date of Evaluation: 02/11/17 Time of Evaluation: 16:16 - Subjective Subjective: i d note observed knee after shipping specialist (terese victor) cared for it feel it would be difficult for him(patient) to receive adequate care at home. LFTs show some improvement will add adjusted dose of vancomycin(500 mg ivq24h) US is wnl Objective - Vital Signs/Intake and Output Vital Signs (last 24 hours): Temp Pulse Resp BP Pulse Ox 98.2 F 83 20 156/91 H 97 02/11/17 16:11 02/11/17 16:11 02/11/17 16:11 02/11/17 16:11 02/11/17 16:11 - Medications Medications: Current Medications Allopurinol (Zyloprim) 100 mg PO DAILY [facility] Last Admin: 02/11/17 08:35 Dose: 100 mg Amlodipine Besylate (Norvasc) 10 mg PO DAILY [facility] Last Admin: 02/11/17 08:34 Dose: 10 mg Docusate Sodium (Colace) 100 mg PO BID [facility] Last Admin: 02/11/17 08:31 Dose: 100 mg Ferrous Sulfate (Feosol) 325 mg PO TID [facility] Last Admin: 02/11/17 12:16 Dose: 325 mg Cefepime HCl 1 gm/ Sodium (Chloride) 100 mls @ 100 mls/hr IVPB DAILY@1700 [facility] Last Admin: 02/10/17 16:23 Dose: 100 mls/hr Vancomycin HCl 500 mg/ Sodium (Chloride) 100 mls @ 100 mls/hr IVPB Q24H [facility] Lactobacillus Acidophilus (Bacid Acidophilus) 1 cap PO BID [facility] Last Admin: 02/11/17 08:30 Dose: 1 cap Losartan Potassium (Cozaar) 100 mg PO DAILY [facility] Last Admin: 02/11/17 08:31 Dose: 100 mg Metoprolol Tartrate (Lopressor) 50 mg PO Q12 [facility] Last Admin: 02/11/17 08:33 Dose: 50 mg Oxycodone/Acetaminophen (Percocet 5/325 Mg Tab) 1 tab PO Q6 PRN PRN Reason: severe pain 8-10 Stop: 02/12/17 13:39 Last Admin: 02/09/17 13:49 Dose: 1 tab Sennosides (Senokot Tab) 8.6 mg PO BID [facility] Last Admin: 02/11/17 08:34 Dose: 8.6 mg Tamsulosin HCl (Flomax) 0.4 mg PO DAILY [facility] Last Admin: 02/11/17 08:33 Dose: 0.4 mg - Labs Labs: 02/09/17 09:00 02/11/17 10:30
[2017-02-11] MEDS: Cefepime 1 GM in Sodium Chloride 0.9% 100 ML IVPB SCH (17:24)
[2017-02-12 08:14] LABS: ALB/GLOB RATIO 1.2 (1.0-2.1); BILIRUBIN,TOTAL 0.4 mg/dl (0.2-1.3); TOTAL PROTEIN 6.6 G/DL (6.3-8.2)
[2017-02-12] MEDS: Lactobacillus Acidophilus 500 MU Cap PO SCH ×2 (09:25→17:02)
[2017-02-12] MEDS: Cefepime 1 GM in Sodium Chloride 0.9% 100 ML IVPB SCH (17:03)
[2017-02-13] MEDS: Lactobacillus Acidophilus 500 MU Cap PO SCH ×2 (08:22→22:14)
--- NOTE | 2017-02-13 16:10 | CP.PCM.PN ---
Subjective - Date & Time of Evaluation Date of Evaluation: 02/13/17 Time of Evaluation: 16:00 - Subjective Subjective: I D NOTE VACUUM PUMP STILL IN PLACE [facility]A [facility] CHAPIS TO RE EVALUATE IN REGARD TO CONTINUED CARE FROM ID PROSPECTIVE WILL NEED CONTINUED IV ANTIBIOTIC COVERAGE LFTs HAVE IMPROVED I HAVE INCREASED DOSE OF CEFEPIME TO 1GM IV Q12H Objective - Vital Signs/Intake and Output Vital Signs (last 24 hours): Temp Pulse Resp BP Pulse Ox 98.2 F 85 20 157/87 H 99 02/13/17 08:19 02/13/17 08:23 02/13/17 08:19 02/13/17 08:23 02/13/17 08:19 - Medications Medications: Current Medications Allopurinol (Zyloprim) 100 mg PO DAILY [facility] Last Admin: 02/13/17 08:23 Dose: 100 mg Amlodipine Besylate (Norvasc) 10 mg PO DAILY [facility] Last Admin: 02/13/17 08:22 Dose: 10 mg Docusate Sodium (Colace) 100 mg PO BID [facility] Last Admin: 02/13/17 08:22 Dose: 100 mg Ferrous Sulfate (Feosol) 325 mg PO TID [facility] Last Admin: 02/13/17 13:11 Dose: 325 mg Cefepime HCl 1 gm/ Sodium (Chloride) 100 mls @ 100 mls/hr IVPB DAILY@1700 [facility] Last Admin: 02/12/17 17:03 Dose: 100 mls/hr Vancomycin HCl 500 mg/ Sodium (Chloride) 100 mls @ 100 mls/hr IVPB Q24H [facility] Last Admin: 02/13/17 15:56 Dose: 100 mls/hr Lactobacillus Acidophilus (Bacid Acidophilus) 1 cap PO BID [facility] Last Admin: 02/13/17 08:22 Dose: 1 cap Losartan Potassium (Cozaar) 100 mg PO DAILY [facility] Last Admin: 02/13/17 08:23 Dose: 100 mg Metoprolol Tartrate (Lopressor) 50 mg PO Q12 [facility] Last Admin: 02/13/17 08:23 Dose: 50 mg Sennosides (Senokot Tab) 8.6 mg PO BID [facility] Last Admin: 02/13/17 08:24 Dose: 8.6 mg Tamsulosin HCl (Flomax) 0.4 mg PO DAILY [facility] Last Admin: 08/20/17 08:23 Dose: 0.4 mg - Labs Labs: 02/09/17 09:00 02/11/17 10:30
[2017-02-13] MEDS: Cefepime 1 GM in Sodium Chloride 0.9% 100 ML IVPB SCH (17:11)
--- NOTE | 2017-02-13 18:49 | PCM.IRP ---
Subjective - Subjective Subjective: Wound vac dressing removed. Diameter of the wound is decreasing however very concerned about the patellar graft. No clinical signs of infection. Alb. improved to 3.6 T.P. is 6.6 PLAN: Awaiting Dr. Chan's evaluation of the graft. Neil Blake M.D. Objective - Vital Signs/Intake and Output Vital Signs (last 24 hours): Vital Signs - 24 hr 02/12/17 02/12/17 02/12/17 20:50 21:27 23:30 Temperature 98.2 F Pulse Rate 87 87 Respiratory 20 Rate Blood Pressure 162/92 H 162/92 H 150/82 O2 Sat by Pulse 97 Oximetry 02/13/17 02/13/17 02/13/17 08:19 08:22 08:23 Temperature 98.2 F Pulse Rate 85 85 85 Respiratory 20 Rate Blood Pressure 157/87 H 157/87 H 157/87 H O2 Sat by Pulse 99 Oximetry 02/13/17 16:44 Temperature 98.1 F Pulse Rate 84 Respiratory 20 Rate Blood Pressure 134/79 O2 Sat by Pulse 98 Oximetry Intake and Output (last 12 hours): Intake & Output 02/12/17 02/13/17 02/13/17 18:59 06:59 18:59 Weight 236 lb 236 lb Other: Voiding Method Urinal Urinal Toilet - Medications Medications: Current Medications Allopurinol (Zyloprim) 100 mg PO DAILY [facility] Last Admin: 02/13/17 08:23 Dose: 100 mg Amlodipine Besylate (Norvasc) 10 mg PO DAILY [facility] Last Admin: 02/13/17 08:22 Dose: 10 mg Docusate Sodium (Colace) 100 mg PO BID [facility] Last Admin: 02/13/17 17:10 Dose: Not Given Ferrous Sulfate (Feosol) 325 mg PO TID [facility] Last Admin: 02/13/17 17:11 Dose: 325 mg Vancomycin HCl 500 mg/ Sodium (Chloride) 100 mls @ 100 mls/hr IVPB Q24H [facility] Last Admin: 02/13/17 15:56 Dose: 100 mls/hr Cefepime HCl 1 gm/ Sodium (Chloride) 100 mls @ 100 mls/hr IVPB Q12@0500,1700 [facility] Last Admin: 02/13/17 17:11 Dose: 100 mls/hr Lactobacillus Acidophilus (Bacid Acidophilus) 1 cap PO BID [facility] Last Admin: 02/13/17 08:22 Dose: 1 cap Losartan Potassium (Cozaar) 100 mg PO DAILY [facility] Last Admin: 02/13/17 08:23 Dose: 100 mg Metoprolol Tartrate (Lopressor) 50 mg PO Q12 [facility] Last Admin: 02/13/17 08:23 Dose: 50 mg Sennosides (Senokot Tab) 8.6 mg PO BID [facility] Last Admin: 02/13/17 17:11 Dose: 8.6 mg Tamsulosin HCl (Flomax) 0.4 mg PO DAILY [facility] Last Admin: 02/13/17 08:23 Dose: 0.4 mg - Labs Labs (last 24 hours): Laboratory Results - last 24 hr 02/13/17 14:50 Vancomycin Trough < 5.0 L
[2017-02-14] MEDS ORDERED: Oxycodone/Acetaminophen 5/325 mg Tab PO PRN (01:16)
[2017-02-14] MEDS: Cefepime 1 GM in Sodium Chloride 0.9% 100 ML IVPB SCH ×2 (05:57→16:33)
[2017-02-14 07:37] LABS: ALB/GLOB RATIO 1.1 (1.0-2.1); ALKALINE PHOSPHATASE 65 U/L (38-126); ALT/SGPT 101 U/L (21-72); AST/SGOT 87 U/L (17-59); BILIRUBIN,TOTAL 0.4 mg/dl (0.2-1.3); BLOOD UREA NITROGEN 18 mg/dl (9-20); CALCIUM 9.8 mg/dL (8.4-10.2); CARBON DIOXIDE 27 mmol/L (22-30); CHLORIDE 105 mmol/L (98-107); GFR AFRICAN-AMERICAN > 60; GLUCOSE,RANDOM 98 mg/dL (75-110); POTASSIUM 3.8 MMOL/L (3.6-5.0); SODIUM 139 mmol/l (132-148)
[2017-02-14] MEDS: Lactobacillus Acidophilus 500 MU Cap PO SCH ×2 (08:39→17:51)
--- NOTE | 2017-02-14 11:59 | CP.PCM.PN ---
Subjective - Date & Time of Evaluation Date of Evaluation: 02/14/17 Time of Evaluation: 09:00 - Subjective Subjective: NO NEW COMPLAINTS Objective - Vital Signs/Intake and Output Vital Signs (last 24 hours): Temp Pulse Resp BP Pulse Ox 97.9 F 79 20 149/94 H 96 02/14/17 09:31 02/14/17 09:31 02/14/17 09:31 02/14/17 09:31 02/14/17 09:31 - Medications Medications: Current Medications Allopurinol (Zyloprim) 100 mg PO DAILY [facility] Last Admin: 02/14/17 08:40 Dose: 100 mg Amlodipine Besylate (Norvasc) 10 mg PO DAILY [facility] Last Admin: 02/14/17 08:41 Dose: 10 mg Docusate Sodium (Colace) 100 mg PO BID [facility] Last Admin: 02/14/17 08:39 Dose: 100 mg Ferrous Sulfate (Feosol) 325 mg PO TID [facility] Last Admin: 02/14/17 08:40 Dose: 325 mg Vancomycin HCl 500 mg/ Sodium (Chloride) 100 mls @ 100 mls/hr IVPB Q24H [facility] Last Admin: 02/13/17 15:56 Dose: 100 mls/hr Cefepime HCl 1 gm/ Sodium (Chloride) 100 mls @ 100 mls/hr IVPB Q12@0500,1700 [facility] Last Admin: 02/14/17 05:57 Dose: 100 mls/hr Lactobacillus Acidophilus (Bacid Acidophilus) 1 cap PO BID [facility] Last Admin: 02/14/17 08:39 Dose: 1 cap Losartan Potassium (Cozaar) 100 mg PO DAILY [facility] Last Admin: 02/14/17 08:40 Dose: 100 mg Metoprolol Tartrate (Lopressor) 50 mg PO Q12 [facility] Last Admin: 02/14/17 08:41 Dose: 50 mg Oxycodone/Acetaminophen (Percocet 5/325 Mg Tab) 1 tab PO Q4 PRN PRN Reason: Pain, severe (8-10) Stop: 02/17/17 01:17 Last Admin: 02/14/17 01:24 Dose: 1 tab Sennosides (Senokot Tab) 8.6 mg PO BID [facility] Last Admin: 02/14/17 08:40 Dose: 8.6 mg Tamsulosin HCl (Flomax) 0.4 mg PO DAILY [facility] Last Admin: 02/14/17 08:41 Dose: 0.4 mg - Labs Labs: 02/09/17 09:00 02/14/17 06:00 - Respiratory Exam Respiratory Exam: Clear to Ausculation Bilateral - Cardiovascular Exam Cardiovascular Exam: REGULAR RHYTHM, +S1, +S2 - Additional Findings Additional findings: LFT DECREASED NOTES FROM ID AND PLASTIC SURGERY SEEN Assessment and Plan - Assessment and Plan (Free Text) Assessment: LEFT KNEE WOUND DEHISCENCE MILD CAD HYPERTENSION HYPERLIPIDEMIA Plan: CONTINUE IV ANTIBIOTICS, LOSARTAN, AMLODIPINE AND ASPIRIN DR [place] TO REEVALUATE
[2017-02-14] MEDS: SILVASORB ANTIMICROBIAL WOUND GEL TP SCH (14:52)
[2017-02-15] MEDS: Cefepime 1 GM in Sodium Chloride 0.9% 100 ML IVPB SCH ×2 (04:06→16:20)
[2017-02-15] MEDS: Lactobacillus Acidophilus 500 MU Cap PO SCH ×2 (08:51→16:19)
--- NOTE | 2017-02-15 09:36 | CP.PCM.PN ---
Subjective - Date & Time of Evaluation Date of Evaluation: 02/15/17 Time of Evaluation: 08:30 - Subjective Subjective: NO COMPLAINTS Objective - Vital Signs/Intake and Output Vital Signs (last 24 hours): Temp Pulse Resp BP Pulse Ox 98.2 F 80 20 147/84 95 02/15/17 08:00 02/15/17 08:50 02/15/17 08:00 02/15/17 08:50 02/15/17 08:00 - Medications Medications: Current Medications Allopurinol (Zyloprim) 100 mg PO DAILY [facility] Last Admin: 02/15/17 08:50 Dose: 100 mg Amlodipine Besylate (Norvasc) 10 mg PO DAILY [facility] Last Admin: 02/15/17 08:49 Dose: 10 mg Docusate Sodium (Colace) 100 mg PO BID [facility] Last Admin: 02/15/17 08:48 Dose: 100 mg Ferrous Sulfate (Feosol) 325 mg PO TID [facility] Last Admin: 02/15/17 08:49 Dose: 325 mg Vancomycin HCl 500 mg/ Sodium (Chloride) 100 mls @ 100 mls/hr IVPB Q24H [facility] Last Admin: 02/14/17 16:32 Dose: 100 mls/hr Cefepime HCl 1 gm/ Sodium (Chloride) 100 mls @ 100 mls/hr IVPB Q12@0500,1700 [facility] Last Admin: 02/15/17 04:06 Dose: 100 mls/hr Lactobacillus Acidophilus (Bacid Acidophilus) 1 cap PO BID [facility] Last Admin: 02/15/17 08:51 Dose: Not Given Losartan Potassium (Cozaar) 100 mg PO DAILY [facility] Last Admin: 02/15/17 08:49 Dose: 100 mg Metoprolol Tartrate (Lopressor) 50 mg PO Q12 [facility] Last Admin: 02/15/17 08:50 Dose: 50 mg Oxycodone/Acetaminophen (Percocet 5/325 Mg Tab) 1 tab PO Q4 PRN PRN Reason: Pain, severe (8-10) Stop: 02/17/17 01:17 Last Admin: 02/14/17 01:24 Dose: 1 tab Sennosides (Senokot Tab) 8.6 mg PO BID [facility] Last Admin: 02/15/17 08:49 Dose: 8.6 mg Tamsulosin HCl (Flomax) 0.4 mg PO DAILY [facility] Last Admin: 02/15/17 08:48 Dose: 0.4 mg - Labs Labs: 02/09/17 09:00 02/14/17 06:00 - Respiratory Exam Respiratory Exam: Clear to Ausculation Bilateral - Cardiovascular Exam Cardiovascular Exam: REGULAR RHYTHM, +S1, +S2 Assessment and Plan - Assessment and Plan (Free Text) Assessment: LEFT KNEE SURGERY WITH WOUND DEHISCENCE MILD CAD HYPERTENSION HYPERLIPIDEMIA Plan: FOR LEFT KNEE SURGERY TOMORROW BY DR NATION PATIENT CLEARED FOR SURGERY
[2017-02-15] MEDS: SILVASORB ANTIMICROBIAL WOUND GEL TP SCH (12:47)
--- NOTE | 2017-02-15 14:29 | CP.PCM.PN ---
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 stable nad Objective - Vital Signs/Intake and Output Vital Signs (last 24 hours): Temp Pulse Resp BP Pulse Ox 98.2 F 80 20 147/84 95 02/15/17 08:00 02/15/17 08:50 02/15/17 08:00 02/15/17 08:50 02/15/17 08:00 - Medications Medications: Current Medications Allopurinol (Zyloprim) 100 mg PO DAILY [facility] Last Admin: 02/15/17 08:50 Dose: 100 mg Amlodipine Besylate (Norvasc) 10 mg PO DAILY [facility] Last Admin: 02/15/17 08:49 Dose: 10 mg Docusate Sodium (Colace) 100 mg PO BID [facility] Last Admin: 02/15/17 08:48 Dose: 100 mg Ferrous Sulfate (Feosol) 325 mg PO TID [facility] Last Admin: 02/15/17 12:45 Dose: 325 mg Vancomycin HCl 500 mg/ Sodium (Chloride) 100 mls @ 100 mls/hr IVPB Q24H [facility] Last Admin: 02/14/17 16:32 Dose: 100 mls/hr Cefepime HCl 1 gm/ Sodium (Chloride) 100 mls @ 100 mls/hr IVPB Q12@0500,1700 [facility] Last Admin: 02/15/17 04:06 Dose: 100 mls/hr Lactobacillus Acidophilus (Bacid Acidophilus) 1 cap PO BID [facility] Last Admin: 02/15/17 08:51 Dose: Not Given Losartan Potassium (Cozaar) 100 mg PO DAILY [facility] Last Admin: 02/15/17 08:49 Dose: 100 mg Metoprolol Tartrate (Lopressor) 50 mg PO Q12 [facility] Last Admin: 02/15/17 08:50 Dose: 50 mg Oxycodone/Acetaminophen (Percocet 5/325 Mg Tab) 1 tab PO Q4 PRN PRN Reason: Pain, severe (8-10) Stop: 02/17/17 01:17 Last Admin: 02/14/17 01:24 Dose: 1 tab Sennosides (Senokot Tab) 8.6 mg PO BID [facility] Last Admin: 02/15/17 08:49 Dose: 8.6 mg Tamsulosin HCl (Flomax) 0.4 mg PO DAILY [facility] Last Admin: 02/15/17 08:48 Dose: 0.4 mg - Labs Labs: 02/09/17 09:00 02/14/17 06:00 Assessment and Plan - Assessment and Plan (Free Text) Plan: 76 year old male who is S/P Left TKR on 12/13/16. He was discharged from TCU on 12/24/16 and afterwards fell down onto his left knee the very next day from his wheel chair leading to surgical wound dehiscence. He was admitted [facility] in [place], [place] where he received 3 units of PRBC and a wound vac was placed. He was then transferred to [facility]CU. He underwent Left Patella/Ligament Reconstruction and wound vac placement on 01/10/17 Left Knee Wound Dehiscence and S/P Left Patella/Ligament Reconstruction and wound vac placement on 01/10/17. Wound Culture + VRE and Psuedomonas DISCONTINUED 02/09/17 2/2 ELEVATED LFTS -- Daptomycin 700 mg IV 1x/day Decreased Maxipime to 2 gm IV 1x/day 02/09/17 2/2 ELEVATED LFTS Discussed with ID Dr. Quintero and patient will need a total of 6 weeks of IV antibiotics from 01/10/17 through Right Arm PICC Line Wound Vac will need to be changed on Tuesday02/11/[address] Blake patient will eventually need gastrocnemius muscle flap placement over wound. However, he will need maximization of his nutritional status prior to this and he will need re-evaluation by Orthopedics Dr. Heard on Tuesday02/14/17 as the patellar tendon is no longer visible Dietary Consult has been placed 02/08/[address] Chan tomorrow Elevated LFTs abd U/S pending monitor decreased and discontinued offending agents trending down Hx HTN Losartan 100 mg PO 1x/day Metoprolol 50 mg PO Q12H Norvasc 5 mg PO 1x/day was increased to 10 mg PO 1x/day on 02/08/17 for better blood pressure control Hx Acute Blood Loss Anemia Please see HPI above Feosol 325 mg PO TID F/U CBC 02/09/17 Hx BPH Flomax 0.4 mg PO 1x/day Hx Gout Allopurinol 100 mg PO 1x/day Hx HLD Atorvastatin 10 mg PO 1x/day Hx Constipation Dulcolax 10 mg VT Daily Colace 100 mg PO 2x/day He is moving his bowels and they are soft stating that the Ensure that he is being given to increase his protein level, is causing him to have bowel movements as he believes he is lactose intolerant Prophylactic Measures Tylenol 650 mg PO Q6H PRN Fever and Mild Pain Lactobacillus Sennisides NO anticoagulation secondary to the Hx of Acute Blood Loss Anemia (Assessment and Plan #3)
--- NOTE | 2017-02-15 15:04 | RAD ---
PROCEDURE: CHEST RADIOGRAPH, 1 VIEW HISTORY: PREOP COMPARISON: 01/03/2017 FINDINGS: LUNGS: Clear. PLEURA: No pneumothorax or pleural fluid seen. CARDIOVASCULAR: Normal. OSSEOUS STRUCTURES: No significant abnormalities. VISUALIZED UPPER ABDOMEN: Normal. OTHER FINDINGS: None. IMPRESSION: No active disease.
--- NOTE | 2017-02-15 17:58 | CP.PCM.PN ---
Subjective - Date & Time of Evaluation Date of Evaluation: 02/15/17 Time of Evaluation: 17:55 - Subjective Subjective: I D NOTE FOR ORTHOPAEDIC PROCEDURE LATER IN WEEK CONTINUE IV ANTIBIOTICS VANCOMYCIN TROUGH IS<5 INCREASE TO 500MG IVPB Q12H Objective - Vital Signs/Intake and Output Vital Signs (last 24 hours): Temp Pulse Resp BP Pulse Ox 98.1 F 82 20 143/87 99 02/15/17 16:43 02/15/17 16:43 02/15/17 16:43 02/15/17 16:43 02/15/17 16:43 - Medications Medications: Current Medications Allopurinol (Zyloprim) 100 mg PO DAILY [facility] Last Admin: 02/15/17 08:50 Dose: 100 mg Amlodipine Besylate (Norvasc) 10 mg PO DAILY [facility] Last Admin: 02/15/17 08:49 Dose: 10 mg Docusate Sodium (Colace) 100 mg PO BID [facility] Last Admin: 02/15/17 16:19 Dose: 100 mg Ferrous Sulfate (Feosol) 325 mg PO TID [facility] Last Admin: 02/15/17 16:19 Dose: 325 mg Vancomycin HCl 500 mg/ Sodium (Chloride) 100 mls @ 100 mls/hr IVPB Q24H [facility] Last Admin: 02/15/17 17:27 Dose: 100 mls/hr Cefepime HCl 1 gm/ Sodium (Chloride) 100 mls @ 100 mls/hr IVPB Q12@0500,1700 [facility] Last Admin: 02/15/17 16:20 Dose: 100 mls/hr Lactobacillus Acidophilus (Bacid Acidophilus) 1 cap PO BID [facility] Last Admin: 02/15/17 16:19 Dose: 1 cap Losartan Potassium (Cozaar) 100 mg PO DAILY [facility] Last Admin: 02/15/17 08:49 Dose: 100 mg Metoprolol Tartrate (Lopressor) 50 mg PO Q12 [facility] Last Admin: 02/15/17 08:50 Dose: 50 mg Oxycodone/Acetaminophen (Percocet 5/325 Mg Tab) 1 tab PO Q4 PRN PRN Reason: Pain, severe (8-10) Stop: 02/17/17 01:17 Last Admin: 02/14/17 01:24 Dose: 1 tab Sennosides (Senokot Tab) 8.6 mg PO BID [facility] Last Admin: 02/15/17 16:19 Dose: 8.6 mg Tamsulosin HCl (Flomax) 0.4 mg PO DAILY [facility] Last Admin: 02/15/17 08:48 Dose: 0.4 mg - Labs Labs: 02/09/17 09:00 02/14/17 06:00
[2017-02-15 18:05] LABS: HEMATOCRIT 35.3 % (35.0-51.0); MEAN CELL VOLUME 84.6 fl (80.0-94.0); MEAN CORPUSCULAR HEMOGLOBIN 27.1 pg (27.0-31.0); RED CELL DISTRIBUTION WIDTH 18.1 % (11.5-14.5); WHITE BLOOD COUNT 4.1 K/uL (4.8-10.8)
[2017-02-15 18:15] LABS: BLOOD UREA NITROGEN 19 mg/dl (9-20); CALCIUM 9.8 mg/dL (8.4-10.2); CARBON DIOXIDE 29 mmol/L (22-30); CHLORIDE 104 mmol/L (98-107); GFR AFRICAN-AMERICAN > 60; GLUCOSE,RANDOM 103 mg/dL (75-110); SODIUM 139 mmol/l (132-148)
[2017-02-15 18:25] LABS: PARTIAL THROMBOPLASTIN TIME 30.5 Seconds (25.6-37.1)
[2017-02-16] MEDS: Cefepime 1 GM in Sodium Chloride 0.9% 100 ML IVPB SCH ×2 (05:22→16:56)
[2017-02-16] MEDS: Lactobacillus Acidophilus 500 MU Cap PO SCH ×2 (08:36→16:59)
[2017-02-16] MEDS: SILVASORB ANTIMICROBIAL WOUND GEL TP SCH (08:40)
--- NOTE | 2017-02-16 09:17 | CP.PCM.PN ---
Subjective - Date & Time of Evaluation Date of Evaluation: 02/16/17 Time of Evaluation: 08:00 - Subjective Subjective: NO NEW COMPLAINTS Objective - Vital Signs/Intake and Output Vital Signs (last 24 hours): Temp Pulse Resp BP Pulse Ox 98.6 F 93 H 20 160/98 H 96 02/16/17 07:47 02/16/17 08:38 02/16/17 07:47 02/16/17 08:38 02/16/17 07:47 - Medications Medications: Current Medications Allopurinol (Zyloprim) 100 mg PO DAILY [facility] Last Admin: 02/16/17 08:38 Dose: 100 mg Amlodipine Besylate (Norvasc) 10 mg PO DAILY [facility] Last Admin: 02/16/17 08:38 Dose: 10 mg Docusate Sodium (Colace) 100 mg PO BID [facility] Last Admin: 02/16/17 08:36 Dose: 100 mg Ferrous Sulfate (Feosol) 325 mg PO TID [facility] Last Admin: 02/16/17 08:37 Dose: 325 mg Cefepime HCl 1 gm/ Sodium (Chloride) 100 mls @ 100 mls/hr IVPB Q12@0500,1700 [facility] Last Admin: 02/16/17 05:22 Dose: 100 mls/hr Vancomycin HCl 500 mg/ Sodium (Chloride) 100 mls @ 100 mls/hr IVPB Q12H [facility] Last Admin: 02/16/17 04:21 Dose: 100 mls/hr Lactobacillus Acidophilus (Bacid Acidophilus) 1 cap PO BID [facility] Last Admin: 02/16/17 08:36 Dose: 1 cap Losartan Potassium (Cozaar) 100 mg PO DAILY [facility] Last Admin: 02/16/17 08:37 Dose: 100 mg Metoprolol Tartrate (Lopressor) 50 mg PO Q12 [facility] Last Admin: 02/16/17 08:37 Dose: 50 mg Oxycodone/Acetaminophen (Percocet 5/325 Mg Tab) 1 tab PO Q4 PRN PRN Reason: Pain, severe (8-10) Stop: 02/17/17 01:17 Last Admin: 02/14/17 01:24 Dose: 1 tab Sennosides (Senokot Tab) 8.6 mg PO BID [facility] Last Admin: 02/16/17 08:38 Dose: 8.6 mg Tamsulosin HCl (Flomax) 0.4 mg PO DAILY [facility] Last Admin: 02/16/17 08:37 Dose: 0.4 mg - Labs Labs: 02/15/17 18:01 02/15/17 18:01 PT 11.5 Seconds (9.8-13.1) 02/15/17 18:01 INR 1.1 (0.9-1.2) 02/15/17 18:01 APTT 30.5 Seconds (25.6-37.1) 02/15/17 18:01 - Respiratory Exam Respiratory Exam: Clear to Ausculation Bilateral - Cardiovascular Exam Cardiovascular Exam: REGULAR RHYTHM, +S1, +S2 - Additional Findings Additional findings: EKG NSR Assessment and Plan - Assessment and Plan (Free Text) Assessment: LEFT KNEE SURGERY WITH WOUND DEHISCENCE MILD CAD HYPERTENSION Plan: CONTINUE ANTIBIOTICS, AMLODIPINE, METOPROLOL AND LOSARTAN
--- NOTE | 2017-02-16 10:45 | CARD ---
APPROVED REPORT EKG Measurement Heart [id number] MS [id number] <Conclusion> Sinus rhythm with premature atrial complexes Possible Left atrial enlargement Left anterior fascicular block
[2017-02-17] MEDS: Cefepime 1 GM in Sodium Chloride 0.9% 100 ML IVPB SCH (04:50)
[2017-02-17 08:05] VITALS: BP 157/83; PULSE 85; TEMP 97.9; O2SAT 99
[2017-02-17] MEDS: Lactobacillus Acidophilus 500 MU Cap PO SCH (08:27)
[2017-02-17] MEDS: SILVASORB ANTIMICROBIAL WOUND GEL TP SCH (08:31)
--- NOTE | 2017-02-17 09:49 | CP.PCM.PN ---
Subjective - Date & Time of Evaluation Date of Evaluation: 02/07/17 Time of Evaluation: 08:00 - Subjective Subjective: NO NEW COMPLAINTS Objective - Vital Signs/Intake and Output Vital Signs (last 24 hours): Temp Pulse Resp BP Pulse Ox 97.9 F 85 20 157/83 H 99 02/17/17 08:03 02/17/17 08:29 02/17/17 08:03 02/17/17 08:29 02/17/17 08:03 - Medications Medications: Current Medications Allopurinol (Zyloprim) 100 mg PO DAILY [facility] Last Admin: 02/17/17 08:28 Dose: Not Given Amlodipine Besylate (Norvasc) 10 mg PO DAILY [facility] Last Admin: 02/17/17 08:30 Dose: 10 mg Docusate Sodium (Colace) 100 mg PO BID [facility] Last Admin: 02/17/17 08:27 Dose: Not Given Ferrous Sulfate (Feosol) 325 mg PO TID [facility] Last Admin: 02/17/17 08:27 Dose: Not Given Cefepime HCl 1 gm/ Sodium (Chloride) 100 mls @ 100 mls/hr IVPB Q12@0500,1700 [facility] Last Admin: 02/17/17 04:50 Dose: 100 mls/hr Vancomycin HCl 500 mg/ Sodium (Chloride) 100 mls @ 100 mls/hr IVPB Q12H [facility] Last Admin: 02/17/17 04:49 Dose: 100 mls/hr Lactobacillus Acidophilus (Bacid Acidophilus) 1 cap PO BID [facility] Last Admin: 02/17/17 08:27 Dose: Not Given Losartan Potassium (Cozaar) 100 mg PO DAILY [facility] Last Admin: 02/17/17 08:30 Dose: 100 mg Metoprolol Tartrate (Lopressor) 50 mg PO Q12 [facility] Last Admin: 02/17/17 08:29 Dose: 50 mg Sennosides (Senokot Tab) 8.6 mg PO BID [facility] Last Admin: 02/17/17 08:27 Dose: Not Given Tamsulosin HCl (Flomax) 0.4 mg PO DAILY [facility] Last Admin: 02/17/17 08:27 Dose: Not Given - Labs Labs: 02/15/17 18:01 02/15/17 18:01 PT 11.5 Seconds (9.8-13.1) 02/15/17 18:01 INR 1.1 (0.9-1.2) 02/15/17 18:01 APTT 30.5 Seconds (25.6-37.1) 02/15/17 18:01 - Respiratory Exam Respiratory Exam: Clear to Ausculation Bilateral - Cardiovascular Exam Cardiovascular Exam: REGULAR RHYTHM, +S1, +S2 Assessment and Plan - Assessment and Plan (Free Text) Assessment: LEFT KNEE SURGICAL WOUND DEHISCENCE MILD CAD HYPERTENSION HYPERLIPIDEMIA Plan: CONTINUE ANTIBIOTICS, LOSARTAN, AMLODIPINE AND METOPROLOL FOR SURGERY TODAY
--- NOTE | 2017-02-17 10:53 | CP.PCM.DIS ---
Provider - Provider Date of Admission: 01/11/17 20:16 Attending physician: Amirah Beasley DO Primary care physician: Jose Elias Chan III, MD Consults: Dr Dustin Blake Time Spent in preparation of Discharge (in minutes): 25 Diagnosis - Discharge Diagnosis (1) Postoperative wound dehiscence Status: Acute Comment: for surgical repair of wound dehiscence today (2) HTN (hypertension) Status: Chronic Comment: BP stable. continue Losartan, Metoprolol and Norvasc (3) Postoperative anemia due to acute blood loss Status: Acute Comment: continue Feosol (4) Elevated LFTs Status: Acute Comment: probably secondary to medications. abdl sonogram: no significant findings. LFTs trending down Hospital Course - Lab Results Lab Results: Most Recent Lab Values WBC 4.1 K/uL (4.8-10.8) L 02/15/17 18:01 RBC 4.18 Mil/uL (4.40-5.90) L 02/15/17 18:01 Hgb 11.3 g/dL (12.0-18.0) L 02/15/17 18:01 Hct 35.3 % (35.0-51.0) 02/15/17 18:01 MCV 84.6 fl (80.0-94.0) 02/15/17 18:01 MCH 27.1 pg (27.0-31.0) 02/15/17 18:01 MCHC 32.0 g/dL (33.0-37.0) L 02/15/17 18:01 RDW 18.1 % (11.5-14.5) H 02/15/17 18:01 Plt Count 164 K/uL (130-400) 02/15/17 18:01 MPV 7.7 fl (7.2-11.7) 01/26/17 06:15 Neut % (Auto) 56.8 % (50.0-75.0) 01/26/17 06:15 Lymph % (Auto) 22.9 % (20.0-40.0) 01/26/17 06:15 [place] % (Auto) 12.2 % (0.0-10.0) H 01/26/17 06:15 Eos % (Auto) 7.5 % (0.0-4.0) H 01/26/17 06:15 Baso % (Auto) 0.6 % (0.0-2.0) 01/26/17 06:15 Neut # 2.9 K/uL (1.8-7.0) 01/26/17 06:15 Lymph # 1.2 K/uL (1.0-4.3) 01/26/17 06:15 [place] # 0.6 K/uL (0.0-0.8) 01/26/17 06:15 Eos # 0.4 K/uL (0.0-0.7) 01/26/17 06:15 Baso # 0.0 K/uL (0.0-0.2) 01/26/17 06:15 PT 11.5 Seconds (9.8-13.1) 02/15/17 18:01 INR 1.1 (0.9-1.2) 02/15/17 18:01 APTT 30.5 Seconds (25.6-37.1) 02/15/17 18:01 Sodium 139 mmol/l (132-148) 02/15/17 18:01 Potassium 4.0 MMOL/L (3.6-5.0) 02/15/17 18:01 Chloride 104 mmol/L (98-107) 02/15/17 18:01 Carbon Dioxide 29 mmol/L (22-30) 02/15/17 18:01 Anion Gap 10 (10-20) 02/15/17 18:01 BUN 19 mg/dl (9-20) 02/15/17 18:01 Creatinine 1.0 mg/dL (0.8-1.5) 02/15/17 18:01 Est GFR ( Amer) > 60 02/15/17 18:01 Est GFR (Non-Af Amer) > 60 02/15/17 18:01 Random Glucose 103 mg/dL (75-110) 02/15/17 18:01 Uric Acid 4.0 mg/Dl (3.5-8.5) 02/10/17 06:30 Calcium 9.8 mg/dL (8.4-10.2) 02/15/17 18:01 Total Bilirubin 0.4 mg/dl (0.2-1.3) 02/14/17 06:00 Direct Bilirubin 0.3 mg/ml (0.0-0.4) 02/12/17 06:00 AST 87 U/L (17-59) H D 02/14/17 06:00 ALT 101 U/L (21-72) H D 02/14/17 06:00 Alkaline Phosphatase 65 U/L (38-126) 02/14/17 06:00 Total Creatine Kinase 85 U/L (55-170) 02/02/17 06:00 Total Protein 6.0 G/DL (6.3-8.2) L 02/14/17 06:00 Albumin 3.1 g/dL (3.5-5.0) L 02/14/17 06:00 Globulin 2.9 gm/dL (2.2-3.9) 02/14/17 06:00 Albumin/Globulin Ratio 1.1 (1.0-2.1) 02/14/17 06:00 Vancomycin Trough < 5.0 ug/mL (5.0-10.0) L 02/13/17 14:50 - Hospital Course Hospital Course: 76 year old male who is S/P Left TKR on 12/13/16. He was discharged from TCU on 12/24/16 and afterwards fell down onto his left knee the very next day from his wheel chair leading to surgical wound dehiscence. He was admitted [facility] in [place], [place] where he received 3 units of PRBC and a wound vac was placed. He was then transferred to [facility]. He underwent Left Patella/Ligament Reconstruction and wound vac placement on 01/10/17 Patient scheduled for surgery today for management of wound dehiscence. Discharge Exam - Head Exam Head Exam: ATRAUMATIC, NORMAL INSPECTION, NORMOCEPHALIC - Eye Exam Eye Exam: absent: Scleral icterus - ENT Exam ENT Exam: Mucous Membranes Moist - Respiratory Exam Respiratory Exam: absent: Wheezes, Respiratory Distress - Cardiovascular Exam Cardiovascular Exam: REGULAR RHYTHM, +S1, +S2 - GI/Abdominal Exam GI & Abdominal Exam: Soft. absent: Tenderness - Rectal Exam Rectal Exam: Deferred - Extremities Exam Extremities exam: joint swelling (left knee) - Neurological Exam Neurological exam: Alert, Oriented x3 - Psychiatric Exam Psychiatric exam: Normal Affect - Skin Skin Exam: Dry, Intact Discharge Plan - Follow Up Plan Condition: GOOD Disposition: OTHER INSTITUTION Instructions: Patella Tendon Repair (DC), Revision Total Joint Arthroplasty (DC ), Fall Prevention (DC) Referrals: Jose Elias Chan III, MD [Primary Care Provider] -
== END 2017-02-17 11:45 | disposition short-term general hospital (02) | DRG 560 ==
LOC: H.TCU 20:16
PROVIDERS: ADMIT Student in an Organized Health Care Education/Training Program; ATTEND Student in an Organized Health Care Education/Training Program
PROC: F07Z9FZ Gait Training/Functional Ambulation Treatment using Assistive, Adaptive, Supportive or Protective Equipment (ICD-10-PCS; principal; 2017-01-11)
PROC: F07Z5FZ Bed Mobility Treatment using Assistive, Adaptive, Supportive or Protective Equipment (ICD-10-PCS; 2017-01-11)
PROC: F07L6FZ Therapeutic Exercise Treatment of Musculoskeletal System - Lower Back / Lower Extremity using Assistive, Adaptive, Supportive or Protective Equipment (ICD-10-PCS; 2017-01-11)
PROC: F08Z4FZ Home Management Treatment using Assistive, Adaptive, Supportive or Protective Equipment (ICD-10-PCS; 2017-01-11)
PROC: F07Z4FZ Wheelchair Mobility Treatment using Assistive, Adaptive, Supportive or Protective Equipment (ICD-10-PCS; 2017-01-11)
DX: Z47.89 Encounter for other orthopedic aftercare (principal); D62 Acute posthemorrhagic anemia; E46 Unspecified protein-calorie malnutrition; T81.31XA Disruption of external operation (surgical) wound, not elsewhere classified, initial encounter; B96.5 Pseudomonas (aeruginosa) (mallei) (pseudomallei) as the cause of diseases classified elsewhere; I10 Essential (primary) hypertension; E78.5 Hyperlipidemia, unspecified; G47.33 Obstructive sleep apnea (adult) (pediatric); N28.9 Disorder of kidney and ureter, unspecified; M19.90 Unspecified osteoarthritis, unspecified site; N40.0 Benign prostatic hyperplasia without lower urinary tract symptoms; Z96.652 Presence of left artificial knee joint; Z16.22 Resistance to vancomycin related antibiotics; B95.2 Enterococcus as the cause of diseases classified elsewhere; I25.10 Atherosclerotic heart disease of native coronary artery without angina pectoris; K59.00 Constipation, unspecified; M10.9 Gout, unspecified; R79.89 Other specified abnormal findings of blood chemistry; Z68.32 Body mass index [BMI] 32.0-32.9, adult

== ENCOUNTER 2017-01-19 07:02 | Day surgery (SDC) | payer MEDICARE ==
[2017-01-11 20:14] VITALS: BMI 34.7
[2017-01-19 07:34] VITALS: RESP 18
[2017-01-19 08:28] VITALS: TEMP 98.2
[2017-01-19] MEDS ORDERED: Lidocaine 1% Inj (20ml) ONE (08:32)
--- NOTE | 2017-01-19 09:35 | CP.SDSHP ---
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 Pt. Evaluated Today:Candidate for Anesthesia & Procedure: No - Date & Time Date: 01/19/17 Time: 09:00 Short Stay Discharge - Short Stay Discharge Admitting Diagnosis/Reason for Visit: INFECTED LT KNEE WOUND Disposition: HOME/ ROUTINE Referrals: Jose Elias Chan III, MD [Primary Care Provider] -
--- NOTE | 2017-01-19 09:37 | PCM.SURG1 ---
Surgeon's Initial Post Op Note - Surgeon's Notes Surgeon: Jackson Taylor MD Machine Operations Supervisor: None Type of Anesthesia: Local Pre-Operative Diagnosis: Knee infection Operative Findings: Patent right basilic vein. Post-Operative Diagnosis: Knee infection Operation Performed: Single lumen picc placement right basilic vein, 39 cm. Tip in SVC. Specimen/Specimens Removed: None Estimated Blood Loss: EBL {In ML}: 2 Blood Products Given: N/A Drains Used: No Drains Post-Op Condition: Fair Date of Surgery/Procedure: 01/19/17 Time of Surgery/Procedure: 09:35
[2017-01-19 10:05] VITALS: BP 137/69; PULSE 59; O2SAT 99
--- NOTE | 2017-01-19 10:32 | VASCULAR ---
PROCEDURE: Date of procedure: 01/19/2017 Procedure: 1. Placement of a right arm PICC with ultrasound and fluoroscopic guidance, CPT 04140 2. PICC tip confirmation with spot radiograph and is in the superior vena cava Medications: 1 percent lidocaine Total Fluoro time: 4.4 seconds Radiation: 0.54 MGy EBL: 2 cc HISTORY: Infection requiring long-term IV antibiotics TECHNIQUE: Following informed consent and procedure time-out, the patient was placed supine on the interventional table and the right arm prepped and draped in the usual sterile fashion. Ultrasound showed a patent and compressible right basilic vein. After the skin was anesthetized with lidocaine, the basilic vein was accessed with micro micropuncture technique using ultrasound guidance. A guidewire was then advanced under fluoroscopic guidance into the superior vena cava. An image documenting ultrasound guidance for vascular access was permanently saved. The length of the single-lumen 5 Greek PICC was trimmed to 39centimeters and advanced through a peel-away sheath. The PICC was position with tip of PICC confirm a spot radiograph the superior vena cava. The PICC was secured to the patient's skin. The PICC was flushed. A biopatch and sterile dressing was applied. IMPRESSION: Placement of a single-lumen 5 Greek PICC trimmed to 39 centimeters via right basilic vein. The tip of the PICC is confirmed with spot radiograph and is in the superior vena cava.
== END 2017-01-19 10:00 | disposition still patient (30) ==
LOC: H.OPSURG 07:02
DX: M00.862 Arthritis due to other bacteria, left knee (principal)
CPT/HCPCS: 36569; 76937; 77001; A4310; C1751

== ENCOUNTER 2017-02-17 11:37 | Observation (INO) | payer MEDICARE ==
[2017-02-17 12:16] VITALS: BMI 36.6
[2017-02-17] MEDS ORDERED: Lactated Ringer's 1,000 ML IV ONE (12:18)
[2017-02-17] MEDS ORDERED: Ropivacaine 0.5% 30ML IV ONE (14:28)
[2017-02-17] MEDS ORDERED: Lidocaine 4% (Laryng-O-Jet) Kit MM ONE (14:35)
[2017-02-17] MEDS ORDERED: Succinylcholine 200 mg/10 ml Inj IV ONE (14:35)
[2017-02-17] MEDS ORDERED: Etomidate 20 mg/10ml Inj IV ONE (14:36)
[2017-02-17] MEDS ORDERED: Propofol 10 mg/ml Inj (20 ML) ONE (14:38)
[2017-02-17] MEDS ORDERED: Bacitracin Ointment 30 GM TUBE ONE (14:39)
[2017-02-17] MEDS ORDERED: Lidocaine 1% Inj (20ml) ONE (14:39)
[2017-02-17] MEDS ORDERED: Bupivacaine 0.5% Inj(30mL) ONE (14:39)
[2017-02-17] MEDS ORDERED: Absorbable Gelatin Sponge Size 100 ONE (14:39)
[2017-02-17] MEDS ORDERED: Dexamethasone 4 mg/1 ml ONE (14:40)
--- NOTE | 2017-02-17 15:34 | CP.PCM.HP ---
History of Present Illness - History of Present Illness History of Present Illness: 76 yo male with history of OA, LEONARDO, HTN, HLD, Renal Insufficiency and BPH had revision of left TKR on 12/13/2016 and was discharged from TCU on 12/24/2016. The next day patient fell from his wheelchair after hitting a bump in the street injuring his left knee and causing the wound to open. He was admitted at [facility] and then later on transferred to [facility]. Dr Blake, plastic surgeon, was consulted by Dr Chan, orthopedist, and he recommended patellar ligament repair and primary wound closure. On 01/10/17 patient underwent left patellar ligament reconstruction and wound vac placement. He was then transferred [facility] for rehab and recuperation. Today patient was discharged to [facility] for the second stage of reconstruction surgery on his left knee. Present on Admission - Present on Admission Any Indicators Present on Admission: No History of DVT/PE: No History of Uncontrolled Diabetes: No Urinary Catheter: No Decubitus Ulcer Present: No Review of Systems - Review of Systems All systems: reviewed and no additional remarkable complaints except (aside from those mentioned above, 12 point system review were negative by me) Past Patient History - Infectious Disease Hx of Infectious Diseases: VRE - Tetanus Immunizations Tetanus Immunization: Unknown - Past Medical History & Family History Past Medical History?: Yes - Past Social History Smoking Status: Never Smoked Alcohol: None Drugs: Denies - CARDIAC Hx Cardiac Disorders: Yes Hx Hypercholesterolemia: Yes Hx Hypertension: Yes - PULMONARY Hx Respiratory Disorders: No Hx Sleep Apnea: Yes - NEUROLOGICAL Hx Neurological Disorder: No - HEENT Hx HEENT Problems: Yes Other/Comment: wears glasses - RENAL Hx Chronic Kidney Disease: Yes Other/Comment: renal insufficiency - ENDOCRINE/METABOLIC Hx Endocrine Disorders: No - HEMATOLOGICAL/ONCOLOGICAL Hx Blood Disorders: No Hx AIDS: No Hx Anemia: Yes Hx Blood Transfusions: Yes Hx Blood Transfusion Reaction: No Hx Human Immunodeficiency Virus (HIV): No - INTEGUMENTARY Hx Dermatological Problems: No - MUSCULOSKELETAL/RHEUMATOLOGICAL Hx Musculoskeletal Disorders: Yes Hx Arthritis: Yes Hx Degenerative Joint Disease: Yes Hx Falls: Yes Hx Osteoarthritis: Yes - GASTROINTESTINAL Hx Gastrointestinal Disorders: No - GENITOURINARY/GYNECOLOGICAL Hx Genitourinary Disorders: Yes Hx Prostate Problems: Yes - PSYCHIATRIC Hx Psychophysiologic Disorder: No Hx Anxiety: No Hx Emotional Abuse: No Hx Physical Abuse: No Hx Substance Use: No - SURGICAL HISTORY Hx Surgeries: Yes Hx Joint Replacement: Yes (TOTAL LEFT KNEE REPLACEMENT X 2) Other/Comment: LASER PROSTATE SX. 12/13/16 s/p left tkr revision. 01/10/17 Application of prevena L knee - ANESTHESIA Hx Anesthesia: Yes Hx Anesthesia Reactions: No Hx Malignant Hyperthermia: No Meds Allergies/Adverse Reactions: Allergies Allergy/AdvReac Type Severity Reaction Status Date / Time No Known Allergies Allergy Verified 12/18/16 00:41 Physical Exam - Constitutional Appears: No Acute Distress - Head Exam Head Exam: ATRAUMATIC - Eye Exam Eye Exam: absent: Scleral icterus - ENT Exam ENT Exam: Mucous Membranes Moist - Neck Exam Neck exam: Negative for: Meningismus - Respiratory Exam Respiratory Exam: absent: Rhonchi, Wheezes, Respiratory Distress - Cardiovascular Exam Cardiovascular Exam: REGULAR RHYTHM, +S1, +S2 - GI/Abdominal Exam GI & Abdominal Exam: Soft. absent: Tenderness - Rectal Exam Rectal Exam: Deferred - Extremities Exam Extremities exam: Positive for: joint swelling (left knee swollen with limited ROM) - Neurological Exam Neurological exam: Alert, Oriented x3 - Psychiatric Exam Psychiatric exam: Normal Affect - Skin Skin Exam: Dry, Intact Results - Vital Signs Recent Vital Signs: Last Vital Signs Temp 98.4 F 02/17/17 12:02 Pulse 73 02/17/17 12:05 Resp 18 02/17/17 12:02 BP 140/92 H 02/17/17 12:02 Pulse Ox 98 02/17/17 12:02 Assessment & Plan - Assessment and Plan (Free Text) Assessment: 76 yo male with history of OA, LEONARDO, HTN, HLD, Renal Insufficiency and BPH had revision of left TKR on 12/13/2016 and was discharged from TCU on 12/24/2016. The next day patient fell from his wheelchair after hitting a bump in the street injuring his left knee and causing the wound to open. He was admitted at [facility] and then later on transferred to [facility]. Dr Blake, plastic surgeon, was consulted by Dr Chan, orthopedist, and he recommended patellar ligament repair and primary wound closure. On 01/10/17 patient underwent left patellar ligament reconstruction and wound vac placement. He was then transferred back to TCU for rehab and recuperation. Today patient was discharged to [facility] for the second stage of reconstruction surgery on his left knee. 1). Left Knee Wound Dehiscence S/P Left Patella/Ligament Reconstruction and wound vac placement on 01/10/17. Wound Culture + VRE and Psuedomonas continue Cefepime and Vanco for surgery today 2). HTN BP stable continue Losartan, Metoprolol and Norvasc 3). Acute Blood Loss Anemia Feosol 325 mg PO TID Hgb: 11.3 4). BPH Flomax 0.4 mg PO 1x/day 5). Gout Allopurinol 100 mg PO 1x/day 6). HLD Atorvastatin 10 mg PO 1x/day
[2017-02-17] MEDS ORDERED: Cefepime (Maxipime) 1 g Inj IVPB ONE (16:05)
[2017-02-17] MEDS ORDERED: Vancomycin 500 mg Inj IVPB ONE (16:05)
[2017-02-17] MEDS ORDERED: Rocuronium 10 mg/ml (5 ml) ONE ×2 (16:07→16:54)
[2017-02-17] MEDS ORDERED: Metoprolol 1 mg/ml Inj IVP ONE (16:34)
[2017-02-17] MEDS ORDERED: ePHEDrine 50 mg/ml Inj ONE (17:04)
--- NOTE | 2017-02-17 17:26 | RAD ---
PROCEDURE: Intraoperative Fluoroscopy. HISTORY: LEFT PATELLA FINDINGS: Fluoroscopic assistance was provided. Approximately 2.0 seconds fluoroscopy time utilized during procedure.
[2017-02-17] MEDS ORDERED: Neostigmine Methylsulfate 2 MG/2 ML ML IV ONE (17:27)
[2017-02-17] MEDS ORDERED: Neostigmine Methylsulfate 3mg/3ml Syringe IV ONE (17:27)
[2017-02-17 17:31] LABS: BF GROSS APPEARANCE BLOODY (CLEAR)
[2017-02-17 18:29] LABS: BODY FLUID TYPE PERITONEAL
[2017-02-17 18:30] LABS: BODY FLUID TOTAL COUNT 100 (0-0)
[2017-02-17] MEDS ORDERED: Labetalol 5mg/ml (4ml) ONE (18:31)
[2017-02-17] MEDS ORDERED: HYDROmorphone 0.5 mg/0.5 ml ISec IVP PRN (18:47)
[2017-02-17] MEDS ORDERED: Lactated Ringer's 1,000 ML IV SCH (18:47)
--- NOTE | 2017-02-17 18:52 | PCM.SURG1 ---
Surgeon's Initial Post Op Note - Surgeon's Notes Surgeon: Dustin Scrap Metal Collector: EASTON Reza Anesthesia Administered By: Dr Stanton Tsai Pre-Operative Diagnosis: patella tendon rupture(periprosthetic). wound dehiscience Operative Findings: as above. no evidence for deep sepsis. avulsion patella ligament repair Post-Operative Diagnosis: as above Operation Performed: primary repair patella ligament. application wound vac. irrigation/debridement. removal froeign bodies (deep). evaluation/ manipulation L knee under fluoro/anaesthesia Specimen/Specimens Removed: foreign bodies (deep). adhesions. synovium Estimated Blood Loss: EBL {In ML}: 75 Blood Products Given: N/A Drains Used: No Drains Post-Op Condition: Good Date of Surgery/Procedure: 02/17/17 Time of Surgery/Procedure: 13:40 (time in room 12:40)
--- NOTE | 2017-02-17 18:54 | PCM.ANESB3 ---
Femoral Nerve Block - Femoral Nerve Block Date of Procedure: 02/17/17 Anesthesiologist: Jenae Pre-Procedure Diagnosis: Wound dehiscence Left knee Post-Procedure Diagnosis: same Procedure Performed: Femoral Nerve Block Left - Procedure Femoral Nerve Block: The procedure was explained to the patient that it is for the post-operative pain management. All wound and blood cultures negative. Patient currently on antibiotics. Consent was obtained after a thorough discussion with the patient regarding the benefits and possible complications of local anesthetic block of the femoral nerve at the inguinal crease area. The patient was brought to the operating room and standard monitors were applied. Time-out was held with the circulating nurse to confirm the correct surgery and the appropriate block. Under general anesthesia, patient was placed in supine position with fully extended lower extremities and the ___left groin exposed. The femoral artery was then carefully palpated. The ultrasound transducer was then applied to this area in the transverse plane and the femoral nerve was visualized lateral to the femoral artery and underneath the fascia iliaca. After thorough identification, the inguinal crease area was prepped with Chloraprep. At this point, a #22 gauge Stimuplex 2-inch needle was inserted immediately lateral to the femoral artery pulse at the inguinal crease and advanced perpendicularly. The needle was inserted to the ultrasound transducer in-plane towards the femoral nerve in a [id number] direction. Needle advancement was performed carefully under direct ultrasound visualization. Nerve stimulator was used and twitch of the quadriceps muscle was obtained at current of __0.5___ MA. After negative aspiration, __2___cc of __0.5___% ropivicaine ____was injected and this was followed with __18____ cc of ___0.5____ % ropivicaine . Under ultrasound guidance the local anesthetics were observed spreading below fascia iliaca and around the femoral nerve. The needle was removed intact and sterile dressing was applied. The patient had stable vital signs, was conscious and in no apparent distress. The patient tolerated the femoral nerve block well with stable vital signs and was prepared for subsequent surgery.
--- NOTE | 2017-02-17 18:57 | PCM.ANESB2 ---
Popliteal Nerve Block - Popliteal Nerve Block Date of Procedure: 02/17/17 Anesthesiologist: Jenae Pre-Procedure Diagnosis: Wound dehisence Left knee Post-Procedure Diagnosis: same Procedure Performed: Popliteal Nerve Block Left - Procedure Popliteal Nerve Block: This procedure was explained to the patient that it is for post-operative pain management. All wound and blood cultures negative. Patient currently receiving antibiotics. Consent was obtained after a thorough discussion with the patient regarding the benefits and possible complications of local anesthetic block of the sciatic nerve at the popliteal level. The patient was brought to the operating room and standard monitors are applied. Time-out was held with the circulating nurse to confirm the correct surgery and the appropriate block. Under general anesthesia, patient's operative leg was gently raised and supported and the groove in between the biceps femoris and vastus lateralis muscles was carefully palpated. The skin approximately 25cm above the popliteal crease was then marked. The ultrasound transducer was then applied to the posterior thigh approximately 8cm above the popliteal crease in the transverse plane and the sciatic nerve before its division was visualized lateral to the popliteal artery and in between the bicep femoris and semimembranosus/ semitendinosus muscles. After identification, the lateral portion of the thigh was prepped with Chloraprep. At this point, a # 21 gauge Stimuplex insulated 4 inch needle was inserted into pre-marked area and advanced in a perpendicular direction. The needle was inserted above the ultrasound transducer in-plane towards the sciatic nerve in a [id number] direction. Needle advancement was performed carefully under direct ultrasound visualization. Nerve stimulator was used and dorsiflexion of the ___left__ foot was elicited at a current of ___0.5__ MA. After repeated negative aspiration, _2____cc of __0.5___ % ropivicaine was injected and this was flowed with ____18__ cc of __0.5____% ____ropivicaine ___. Under ultrasound guidance the local anesthetics were observed tenting the epidural sheath and surrounding the roots of the sciatic nerve. The needle was removed intact and sterile dressing was applied. The patient tolerated the popliteal nerve block well with stable vital signs and was subsequently prepared for the surgery.
[2017-02-17] MEDS ORDERED: Oxycodone/Acetaminophen 5/325 mg Tab PO PRN (19:48)
[2017-02-17] MEDS ORDERED: Patient's Own Med (Cefepime 1gm In Ns 100ml [Maxipime 1gm] 1 GM) IVPB SCH (21:00)
[2017-02-17] MEDS ORDERED: Cefepime 1 GM in Sodium Chloride 0.9% 100 ML IVPB SCH (21:00)
[2017-02-18] MEDS: Cefepime 1 GM in Sodium Chloride 0.9% 100 ML IVPB SCH ×2 (04:30→16:17)
[2017-02-18 07:34] LABS: BASO % 0.6 % (0.0-2.0); EOS % 1.1 % (0.0-4.0); LYMPH # 0.8 K/uL (1.0-4.3); LYMPH % 18.2 % (20.0-40.0); MEAN CELL VOLUME 82.7 fl (80.0-94.0); MEAN CORPUSCULAR HEMOGLOBIN 27.1 pg (27.0-31.0); MEAN CORPUSCULAR HGB CONC 32.8 g/dL (33.0-37.0); MEAN PLATELET VOLUME 7.9 fl (7.2-11.7); MONO # 0.9 K/uL (0.0-0.8); MONO % 22.1 % (0.0-10.0); NEUT # 2.4 K/uL (1.8-7.0); NRBC % 0.1 % (0.0-0.0); PLATELET COUNT 158 K/uL (130-400); RED CELL DISTRIBUTION WIDTH 16.8 % (11.5-14.5); WHITE BLOOD COUNT 4.1 K/uL (4.8-10.8)
--- NOTE | 2017-02-18 07:44 | CP.PCM.PN ---
Subjective - Date & Time of Evaluation Date of Evaluation: 02/18/17 Time of Evaluation: 07:30 - Subjective Subjective: S- pt comfortable with minimal post op discomfort Objective - Vital Signs/Intake and Output Vital Signs (last 24 hours): Temp Pulse Resp BP Pulse Ox 97.8 F 81 19 133/74 96 02/18/17 05:00 02/18/17 05:00 02/18/17 05:00 02/18/17 05:00 02/18/17 05:00 Intake and Output: 02/18/17 02/18/17 06:59 18:59 Output Total 50 Balance -50 - Medications Medications: Current Medications Acetaminophen (Tylenol 325mg Tab) 650 mg PO Q6 PRN PRN Reason: Pain, Mild (1-3) Allopurinol (Zyloprim) 100 mg PO DAILY [facility] Amlodipine Besylate (Norvasc) 10 mg PO DAILY [facility] Atorvastatin Calcium (Lipitor) 10 mg PO HS [facility] Last Admin: 02/17/17 21:37 Dose: 10 mg Docusate Sodium (Colace) 100 mg PO BID [facility] Ferrous Sulfate (Feosol) 325 mg PO TID [facility] Lactated Ringer's (Lactated Ringer's) 1,000 mls @ 40 mls/hr IV .Q24H [facility] Last Admin: 02/17/17 21:30 Dose: 40 mls/hr Vancomycin HCl 500 mg/ Sodium (Chloride) 100 mls @ 100 mls/hr IVPB DAILY [facility] Cefepime HCl 1 gm/ Sodium (Chloride) 100 mls @ 100 mls/hr IVPB Q12H [facility] Last Admin: 02/18/17 04:30 Dose: 100 mls/hr Lactobacillus Acidophilus (Bacid Acidophilus) 1 cap PO BID [facility] Losartan Potassium (Cozaar) 100 mg PO DAILY [facility] Metoprolol Tartrate (Lopressor) 50 mg PO Q12 [facility] Last Admin: 02/17/17 21:36 Dose: 50 mg Oxycodone/Acetaminophen (Percocet 5/325 Mg Tab) 1 tab PO Q4 PRN PRN Reason: Pain, moderate (4-7) Stop: 02/20/17 19:49 Sennosides (Senokot Tab) 8.6 mg PO BID [facility] Tamsulosin HCl (Flomax) 0.4 mg PO DAILY [facility] - Additional Findings Additional findings: Objective wound vac intact no gross deficits post op xrays reveal acceptable position of construct knee immobilizer intact Assessment and Plan - Assessment and Plan (Free Text) Assessment: A- s/p patella ligament repair with applx wound vac P- foot flat weight bearing with walker-
[2017-02-18 07:48] LABS: BLOOD UREA NITROGEN 18 mg/dl (9-20); CALCIUM 9.7 mg/dL (8.4-10.2); CARBON DIOXIDE 27 mmol/L (22-30); CHLORIDE 107 mmol/L (98-107); GFR AFRICAN-AMERICAN > 60; GLUCOSE,RANDOM 104 mg/dL (75-110); POTASSIUM 4.1 MMOL/L (3.6-5.0); SODIUM 139 mmol/l (132-148)
[2017-02-18] MEDS: Lactobacillus Acidophilus 500 MU Cap PO SCH ×2 (08:40→16:16)
[2017-02-18 09:20] VITALS: RESP 20
[2017-02-18 09:27] LABS: NEUTROPHIL 57 % (42-75); TOTAL CELLS COUNTED 100
--- NOTE | 2017-02-18 09:49 | RAD ---
PROCEDURE: Left knee dated 02/17/2017 AP and cross-table lateral portable views of the left knee performed HISTORY: Status post patellar repair COMPARISON: Comparison made with prior studies 01/22/2017 FINDINGS: Current study re- demonstrates left total knee arthroplasty. Threaded screws traverse apparent osteotomy medial tibial plateau medial tibial metaphysis. . Several small metallic anchors noted within the soft tissues anterior to the tibial tubercle. . Hardware appears intact without evidence of loosening or infection. Satisfactory alignment. Small suprapatellar joint effusion IMPRESSION: Re- demonstrated is left TKA. Small suprapatellar joint effusion
--- NOTE | 2017-02-18 11:42 | CP.PCM.CON ---
History of Present Illness - History of Present Illness History of Present Illness: THE PATIENT IS A 76 YEAR OLD MALE WHO HAD MULTIPLE LEFT KNEE SURGERIES INCLUDING A FEW OVER THE LAST 2 MONTHS AND HE FELL ABOUT 6 WEEKS AGO AND SUSTAINED A PATELLA INJURY AND A WOUND DEHISCENCE AND HAD PATELLA LIGAMENT REPAIR AND PROLONGED IV ANTIBIOTIC ADMINISTRATION AND WOUND VAC DRAINAGE IN TCU. HE UNDERWENT LEFT PATELLA LIGAMENT REPAIR YESTERDAY BY DR NATION AND IS NOW ON 6S. HE WILL PROBABLY BE DISCHARGED SOON TO A SUBACUTE CENTER FOR IV ANTIBIOTICS OR TO AN OUT-PATIENT INFUSION CENTER. HE WILL LATER NEED A SURGICAL FLAP BY PLASTIC SURGERY TO CLOSE THE WOUND. HE ALSO HAS A HISTORY OF MILD CAD, HYPERTENSION AND HYPERLIPIDEMIA. CARDIOLOGY WAS ASKED TO FOLLOW HIM ON THIS ADMISSION. HE IS COMFORTABLE AND DENIES CHEST PAIN OR SOB. Past Patient History - Infectious Disease Hx of Infectious Diseases: VRE - Tetanus Immunizations Tetanus Immunization: Unknown - Past Medical History & Family History Past Medical History?: Yes - Past Social History Smoking Status: Never Smoked Alcohol: None Drugs: Denies - CARDIAC Hx Cardiac Disorders: Yes Hx Hypercholesterolemia: Yes Hx Hypertension: Yes - PULMONARY Hx Respiratory Disorders: No Hx Sleep Apnea: Yes - NEUROLOGICAL Hx Neurological Disorder: No - HEENT Hx HEENT Problems: Yes Other/Comment: wears glasses - RENAL Hx Chronic Kidney Disease: Yes Other/Comment: renal insufficiency - ENDOCRINE/METABOLIC Hx Endocrine Disorders: No - HEMATOLOGICAL/ONCOLOGICAL Hx Blood Disorders: No Hx AIDS: No Hx Anemia: Yes Hx Blood Transfusions: Yes Hx Blood Transfusion Reaction: No Hx Human Immunodeficiency Virus (HIV): No - INTEGUMENTARY Hx Dermatological Problems: No - MUSCULOSKELETAL/RHEUMATOLOGICAL Hx Musculoskeletal Disorders: Yes Hx Arthritis: Yes Hx Degenerative Joint Disease: Yes Hx Falls: Yes Hx Osteoarthritis: Yes - GASTROINTESTINAL Hx Gastrointestinal Disorders: No - GENITOURINARY/GYNECOLOGICAL Hx Genitourinary Disorders: Yes Hx Prostate Problems: Yes - PSYCHIATRIC Hx Psychophysiologic Disorder: No Hx Anxiety: No Hx Emotional Abuse: No Hx Physical Abuse: No Hx Substance Use: No - SURGICAL HISTORY Hx Surgeries: Yes Hx Joint Replacement: Yes (TOTAL LEFT KNEE REPLACEMENT X 2) Other/Comment: LASER PROSTATE SX. 12/13/16 s/p left tkr revision. 01/10/17 Application of prevena L knee - ANESTHESIA Hx Anesthesia: Yes Hx Anesthesia Reactions: No Hx Malignant Hyperthermia: No Meds Allergies/Adverse Reactions: Allergies Allergy/AdvReac Type Severity Reaction Status Date / Time No Known Allergies Allergy Verified 12/18/16 00:41 - Medications Medications: Current Medications Acetaminophen (Tylenol 325mg Tab) 650 mg PO Q6 PRN PRN Reason: Pain, Mild (1-3) Allopurinol (Zyloprim) 100 mg PO DAILY [facility] Last Admin: 02/18/17 08:41 Dose: 100 mg Amlodipine Besylate (Norvasc) 10 mg PO DAILY [facility] Last Admin: 02/18/17 08:41 Dose: 10 mg Atorvastatin Calcium (Lipitor) 10 mg PO HS [facility] Last Admin: 02/17/17 21:37 Dose: 10 mg Docusate Sodium (Colace) 100 mg PO BID [facility] Last Admin: 02/18/17 08:40 Dose: 100 mg Enoxaparin Sodium (Lovenox) 40 mg SC DAILY [facility] PRN Reason: Protocol Ferrous Sulfate (Feosol) 325 mg PO TID [facility] Last Admin: 02/18/17 08:41 Dose: 325 mg Lactated Ringer's (Lactated Ringer's) 1,000 mls @ 40 mls/hr IV .Q24H [facility] Last Admin: 02/17/17 21:30 Dose: 40 mls/hr Vancomycin HCl 500 mg/ Sodium (Chloride) 100 mls @ 100 mls/hr IVPB DAILY [facility] Last Admin: 02/18/17 08:45 Dose: 100 mls/hr Cefepime HCl 1 gm/ Sodium (Chloride) 100 mls @ 100 mls/hr IVPB Q12H [facility] Last Admin: 02/18/17 04:30 Dose: 100 mls/hr Lactobacillus Acidophilus (Bacid Acidophilus) 1 cap PO BID [facility] Last Admin: 02/18/17 08:40 Dose: 1 cap Losartan Potassium (Cozaar) 100 mg PO DAILY [facility] Last Admin: 02/18/17 08:44 Dose: 100 mg Metoprolol Tartrate (Lopressor) 50 mg PO Q12 [facility] Last Admin: 02/18/17 08:43 Dose: 50 mg Oxycodone/Acetaminophen (Percocet 5/325 Mg Tab) 1 tab PO Q4 PRN PRN Reason: Pain, moderate (4-7) Stop: 02/20/17 19:49 Last Admin: 02/18/17 10:05 Dose: 1 tab Sennosides (Senokot Tab) 8.6 mg PO BID [facility] Last Admin: 02/18/17 08:43 Dose: 8.6 mg Tamsulosin HCl (Flomax) 0.4 mg PO DAILY [facility] Last Admin: 02/18/17 08:44 Dose: 0.4 mg Physical Exam - Respiratory Exam Respiratory Exam: Clear to Auscultation Bilateral - Cardiovascular Exam Cardiovascular Exam: REGULAR RHYTHM, +S1, +S2 Results - Vital Signs Recent Vital Signs: Last Vital Signs Temp 97.8 F 02/18/17 09:18 Pulse 71 02/18/17 09:18 Resp 20 02/18/17 09:18 BP 135/85 02/18/17 09:18 Pulse Ox 96 02/18/17 09:18 - Labs Result Diagrams: 02/18/17 06:35 02/18/17 06:35 Labs: Laboratory Results - last 24 hr 02/17/17 02/17/17 02/18/17 14:45 17:24 06:35 WBC 4.1 L RBC 3.87 L Hgb 10.5 L Hct 32.0 L MCV 82.7 MCH 27.1 MCHC 32.8 L RDW 16.8 H Plt Count 158 MPV 7.9 Neut % (Auto) 58.0 Lymph % (Auto) 18.2 L Day % (Auto) 22.1 H Eos % (Auto) 1.1 Baso % (Auto) 0.6 Neut # 2.4 Lymph # 0.8 L Day # 0.9 H Eos # 0.0 Baso # 0.0 Neutrophils % (Manual) 57 Lymphocytes % (Manual) 19 L Monocytes % (Manual) 24 H Platelet Estimate Normal Anisocytosis (manual) Slight Ovalocytes Slight Sodium Potassium Chloride Carbon Dioxide Anion Gap BUN Creatinine Est GFR ( Amer) Est GFR (Non-Af Amer) Random Glucose Calcium Fluid Source Peritoneal Fluid Appearance Bloody Fluid WBC 74187.0 H Fluid RBC 35.0 H Fluid Tot Cell Count 100 H Fluid Neutrophils 46.0 H Fluid Lymphocytes 36.0 H Fld Monocyte/Macrophag 18 H Fluid Comment Sl cloudy Blood Type O POSITIVE Antibody Screen Negative Crossmatch See Detail BBK History Checked Patient has bt 02/18/17 06:35 WBC RBC Hgb Hct MCV MCH MCHC RDW Plt Count MPV Neut % (Auto) Lymph % (Auto) Day % (Auto) Eos % (Auto) Baso % (Auto) Neut # Lymph # Day # Eos # Baso # Neutrophils % (Manual) Lymphocytes % (Manual) Monocytes % (Manual) Platelet Estimate Anisocytosis (manual) Ovalocytes Sodium 139 Potassium 4.1 Chloride 107 Carbon Dioxide 27 Anion Gap 10 BUN 18 Creatinine 1.0 Est GFR ( Amer) > 60 Est GFR (Non-Af Amer) > 60 Random Glucose 104 Calcium 9.7 Fluid Source Fluid Appearance Fluid WBC Fluid RBC Fluid Tot Cell Count Fluid Neutrophils Fluid Lymphocytes Fld Monocyte/Macrophag Fluid Comment Blood Type Antibody Screen Crossmatch BBK History Checked Assessment & Plan - Assessment and Plan (Free Text) Assessment: S/P MULTIPLE LEFT KNEE SURGERIES INCLUDING YESTERDAY'S PATELLA LIGAMENT REPAIR MILD CAD HYPERTENSION HYPERLIPIDEMIA Plan: CONTINUE IV ANTIBIOTICS, METOPROLOL, LOSARTAN, AMLODIPINE, ATORVASTATIN, LOVENOX , ASA FOR DISCHARGE TO SUBACUTE UNIT FOR IV ANTIBIOTICS OR OUT PATIENT INFUSION CENTER
--- NOTE | 2017-02-18 14:17 | OP ---
PROCEDURE DATE: 02/17/2017 PREOPERATIVE DIAGNOSES: 1. Patellar tendon rupture (periprostatic). 2. Wound dehiscence and defect in the anterior aspect of the knee. POSTOPERATIVE DIAGNOSES: 1. Patellar tendon rupture (periprostatic). 2. Wound dehiscence. 3. Synovitis. OPERATIVE PROCEDURE: 1. Repair of patellar tenon rupture (periprosthetic) left knee. 2. Arthrotomy, synovectomy. 3. Application of wound VAC. 4. Removal of foreign bodies. 5. Aspiration of the knee and manipulation of the knee under fluoroscopy and anesthesia. SURGEON: Dr. Chan. SENIOR NATIONAL ACCOUNT MANAGER: Lola Ramos, certified registered nursing for assistance. ANESTHESIA ADMINISTERED BY: Dr. Stanton Emanuel. OPERATIVE FINDINGS: No evidence for deep sepsis. Evulsion of the prior patellar ligament repair due to the patient's noncompliance while in the hospital. ESTIMATED BLOOD LOSS: 75 mL. One unit of packed cell is transfused. DRAINS USED: Wound VAC drain is employed. SPECIMEN REMOVED: Foreign bodies, sutures, adhesion, synovium. COMPLICATIONS: No further complications. POSTOPERATIVE CONDITION: Stable. OPERATIVE INDICATIONS: Nicole Rosenbaum is a gentleman who had a successful revision total knee replacement several months ago. At the end of November, the patient did very well until he decided against advise to drive a car. The patient transferring out of car, fell hyperflexing his knee. The patient ruptured his patellar ligament. He presented to [facility] and was debrided, transferred back to [place]. The patient underwent primary patellar union repair and application of wound VAC. The patient has resolved a secondary wound dehiscence with re-rupture of the patellar ligament secondary to lack of compliance while in the rehab facility at the hospital in the TCU. The plan at this point of time is to again attempt patellar tendon repair, debride the wound. The situation is discussed with Dr. Neil Blake. He wishes no major coverage procedure. At this point of time, we agree. It is doubtful that the patellar tendon will heal at this point in time, but it will be repaired at this setting to protect the components. There is no evidence of deep infection. The patient has been maintained an IV antibiotics. The game plan of this surgery does not work in terms of patellar ligament repair for an allograft Achilles tendon bone block augmentation to the quadriceps tendon. This was discussed at length with the patient. Again, the entire CAT scan of events is directly cause and related to the patient's lack of compliance both in driving postoperatively against advise and his behavior in the TCU. After having obtained informed consent and after thoroughly discussing this matter with the patient in detail, the possibility of mechanical failure, infection, thromboembolic disease, arthrofibrosis, limited flexion, nerve injury, all these possibilities were discussed at length. The patient demands the procedure to be done at this time. OPERATIVE PROCEDURE, LEFT KNEE: After having obtained informed consent in the above fashion, after having identified side, site and procedure and a critical pause/timeout after the satisfactory induction of anesthetic, the patient identified as Nicole Rosenbaum, in the supine position with all bony prominences well padded. The left lower extremity was prepped and free-draped in the usual fashion for lower extremity surgery. A tourniquet had been applied, but was not yet inflated. After exsanguinating the limb with 6-inch Esmarch bandage, the tourniquet which had been applied was inflated to 350 mmHg. The initial incision was lengthened distally to identify the tibial tuberosity and patellar ligament stump. There was found to be evidence of marked synovitis and adhesions and granulation tissue. The skin incision was carried down through the skin and subcutaneous tissue. The wound margins are debrided to the skin and subcutaneous tissue. Thorough irrigation was accomplished with the Pulsavac. The joint is aspirated and cultures were sent for aerobic, anaerobic, AFB and fungal cultures as well as number of white cells per high-power field. This having been accomplished, the drill holes were placed in the proximal aspect of the tibia. A modified [place] technique was accomplished to bring the patellar tendon down to the proximal tibial plateau. A #5 fiber wire is placed through the drill holes and tied. Two further anchors were placed into the proximal tibia to further secure the patellar tendon. It should be noted that the allograft which have been applied earlier in the initial procedure is consolidating and looks very good and viable. The joint is aspirated. The aforementioned fluid is sent down to the lab for stat Gram stain, number of white cells per high-power field, aerobic, anaerobic, AFB and fungal cultures. The wound is thoroughly irrigated. Aspiration having been accomplished. The wound is left open as per the discussion with Plastic Surgery, Dr. Neil Blake and at this point in time, the wound VAC was applied. The wound VAC is trimmed. The wound is thoroughly irrigated. Hemostasis controlled. The wound VAC is trimmed to fit the wound. The central aspect of the wound VAC is cut and the suction device is placed through the dressing and attached to the wound VAC. Gene Riley compression dressing and knee immobilizers applied. Blood loss is approximately 75 mL. The patient was transfused one unit of packed cells. Drains used, the aforementioned wound VAC is used. No further complications. The patient is stable leaving the operative room. Jose Elias Chan MD
--- NOTE | 2017-02-18 16:03 | CP.PCM.PN ---
Subjective - Date & Time of Evaluation Date of Evaluation: 02/18/17 Time of Evaluation: 15:56 - Subjective Subjective: I D NOTE S/P OP CONTIUE VANCOMYCIN/MAXIPEME Objective - Vital Signs/Intake and Output Vital Signs (last 24 hours): Temp Pulse Resp BP Pulse Ox 97.8 F 71 20 135/85 96 02/18/17 09:18 02/18/17 09:18 02/18/17 09:18 02/18/17 09:18 02/18/17 09:18 Intake and Output: 02/18/17 02/18/17 06:59 18:59 Output Total 50 Balance -50 - Medications Medications: Current Medications Acetaminophen (Tylenol 325mg Tab) 650 mg PO Q6 PRN PRN Reason: Pain, Mild (1-3) Allopurinol (Zyloprim) 100 mg PO DAILY [facility] Last Admin: 02/18/17 08:41 Dose: 100 mg Amlodipine Besylate (Norvasc) 10 mg PO DAILY [facility] Last Admin: 02/18/17 08:41 Dose: 10 mg Aspirin (Ecotrin) 81 mg PO DAILY [facility] Atorvastatin Calcium (Lipitor) 10 mg PO HS [facility] Last Admin: 02/17/17 21:37 Dose: 10 mg Docusate Sodium (Colace) 100 mg PO BID [facility] Last Admin: 02/18/17 08:40 Dose: 100 mg Enoxaparin Sodium (Lovenox) 40 mg SC DAILY [facility] PRN Reason: Protocol Ferrous Sulfate (Feosol) 325 mg PO TID [facility] Last Admin: 02/18/17 12:47 Dose: 325 mg Lactated Ringer's (Lactated Ringer's) 1,000 mls @ 40 mls/hr IV .Q24H [facility] Last Admin: 02/17/17 21:30 Dose: 40 mls/hr Vancomycin HCl 500 mg/ Sodium (Chloride) 100 mls @ 100 mls/hr IVPB DAILY [facility] Last Admin: 02/18/17 08:45 Dose: 100 mls/hr Cefepime HCl 1 gm/ Sodium (Chloride) 100 mls @ 100 mls/hr IVPB Q12H [facility] Last Admin: 02/18/17 04:30 Dose: 100 mls/hr Lactobacillus Acidophilus (Bacid Acidophilus) 1 cap PO BID [facility] Last Admin: 02/18/17 08:40 Dose: 1 cap Losartan Potassium (Cozaar) 100 mg PO DAILY [facility] Last Admin: 02/18/17 08:44 Dose: 100 mg Metoprolol Tartrate (Lopressor) 50 mg PO Q12 [facility] Last Admin: 02/18/17 08:43 Dose: 50 mg Oxycodone/Acetaminophen (Percocet 5/325 Mg Tab) 1 tab PO Q4 PRN PRN Reason: Pain, moderate (4-7) Stop: 02/20/17 19:49 Last Admin: 02/18/17 10:05 Dose: 1 tab Sennosides (Senokot Tab) 8.6 mg PO BID [facility] Last Admin: 02/18/17 08:43 Dose: 8.6 mg Tamsulosin HCl (Flomax) 0.4 mg PO DAILY [facility] Last Admin: 02/18/17 08:44 Dose: 0.4 mg - Labs Labs: 02/18/17 06:35 02/18/17 06:35
[2017-02-18 16:46] VITALS: TEMP 97.7; O2SAT 95
[2017-02-18] MEDS ORDERED: Enoxaparin 40 mg Syringe SC SCH (17:00)
--- NOTE | 2017-02-18 17:01 | CP.PCM.DIS ---
Provider - Provider Date of Admission: 02/17/17 19:41 Attending physician: Abe Rogel MD Primary care physician: Jose Elias Chan III, MD Consults: Dr Dustin Quintero Time Spent in preparation of Discharge (in minutes): 25 Diagnosis - Discharge Diagnosis (1) Postoperative wound dehiscence Status: Acute Comment: underwent another patellar ligament repair, removal of foreign bodies and debridement and placement of wound vac. continue Vanco and Cefepime (2) HTN (hypertension) Status: Chronic Comment: BP stable. continue Losartan, Metoprolol and Norvasc (3) Postoperative anemia due to acute blood loss Status: Acute Comment: continue Feosol. Hgb: 10.5 (4) Elevated LFTs Status: Acute Comment: probably secondary to medications. abdl sonogram: no abnormal findings. LFTs trending down Hospital Course - Lab Results Lab Results: Micro Results 02/17/17 17:21 Synovial Fluid Gram Stain - Final 02/17/17 17:21 Synovial Fluid Body Fluid Culture - Preliminary NO GROWTH AFTER 24 HOURS 02/17/17 17:21 Knee - Left Gram Stain - Final 02/17/17 17:21 Knee - Left Wound Culture - Preliminary NO GROWTH AFTER 24 HOURS Most Recent Lab Values WBC 4.1 K/uL (4.8-10.8) L 02/18/17 06:35 RBC 3.87 Mil/uL (4.40-5.90) L 02/18/17 06:35 Hgb 10.5 g/dL (12.0-18.0) L 02/18/17 06:35 Hct 32.0 % (35.0-51.0) L 02/18/17 06:35 MCV 82.7 fl (80.0-94.0) 02/18/17 06:35 MCH 27.1 pg (27.0-31.0) 02/18/17 06:35 MCHC 32.8 g/dL (33.0-37.0) L 02/18/17 06:35 RDW 16.8 % (11.5-14.5) H 02/18/17 06:35 Plt Count 158 K/uL (130-400) 02/18/17 06:35 MPV 7.9 fl (7.2-11.7) 02/18/17 06:35 Neut % (Auto) 58.0 % (50.0-75.0) 02/18/17 06:35 Lymph % (Auto) 18.2 % (20.0-40.0) L 02/18/17 06:35 [place] % (Auto) 22.1 % (0.0-10.0) H 02/18/17 06:35 Eos % (Auto) 1.1 % (0.0-4.0) 02/18/17 06:35 Baso % (Auto) 0.6 % (0.0-2.0) 02/18/17 06:35 Neut # 2.4 K/uL (1.8-7.0) 02/18/17 06:35 Lymph # 0.8 K/uL (1.0-4.3) L 02/18/17 06:35 [place] # 0.9 K/uL (0.0-0.8) H 02/18/17 06:35 Eos # 0.0 K/uL (0.0-0.7) 02/18/17 06:35 Baso # 0.0 K/uL (0.0-0.2) 02/18/17 06:35 Neutrophils % (Manual) 57 % (42-75) 02/18/17 06:35 Lymphocytes % (Manual) 19 % (20-50) L 02/18/17 06:35 Monocytes % (Manual) 24 % (0-10) H 02/18/17 06:35 Platelet Estimate Normal (NORMAL) 02/18/17 06:35 Anisocytosis (manual) Slight 02/18/17 06:35 Ovalocytes Slight 02/18/17 06:35 Sodium 139 mmol/l (132-148) 02/18/17 06:35 Potassium 4.1 MMOL/L (3.6-5.0) 02/18/17 06:35 Chloride 107 mmol/L (98-107) 02/18/17 06:35 Carbon Dioxide 27 mmol/L (22-30) 02/18/17 06:35 Anion Gap 10 (10-20) 02/18/17 06:35 BUN 18 mg/dl (9-20) 02/18/17 06:35 Creatinine 1.0 mg/dL (0.8-1.5) 02/18/17 06:35 Est GFR ( Amer) > 60 02/18/17 06:35 Est GFR (Non-Af Amer) > 60 02/18/17 06:35 Random Glucose 104 mg/dL (75-110) 02/18/17 06:35 Calcium 9.7 mg/dL (8.4-10.2) 02/18/17 06:35 Fluid Source Peritoneal 02/17/17 17:24 Fluid Appearance Bloody (CLEAR) 02/17/17 17:24 Fluid WBC 92031.0 /mm3 (0.0-300.0) H 02/17/17 17:24 Fluid RBC 35.0 /mm3 (0.0-0.0) H 02/17/17 17:24 Fluid Tot Cell Count 100 (0-0) H 02/17/17 17:24 Fluid Neutrophils 46.0 % (0-0) H 02/17/17 17:24 Fluid Lymphocytes 36.0 % (0-0) H 02/17/17 17:24 Fld Monocyte/Macrophag 18 % (0-0) H 02/17/17 17:24 Fluid Comment Sl cloudy 02/17/17 17:24 Blood Type O POSITIVE 02/17/17 14:45 Antibody Screen Negative 02/17/17 14:45 Crossmatch See Detail 02/17/17 14:45 BBK History Checked Patient has bt 02/17/17 14:45 - Hospital Course Hospital Course: 76 yo male with history of OA, LEONARDO, HTN, HLD, Renal Insufficiency and BPH had revision of left TKR on 12/13/2016 and was discharged from TCU on 12/24/2016. The next day patient fell from his wheelchair after hitting a bump in the street causing his surgical wound on the left knee to open. He was admitted at [facility] and then later transferred to [facility] because his orthopedist work here. Dr Blake, plastic surgeon, was consulted by orthopedist, and he recommended patellar ligament repair and primary wound closure. On 01/10/17 patient underwent left patellar ligament reconstruction and wound vac placement. He was then transferred back to TCU for rehab and recuperation. On 02/17/17 patient underwent another patellar ligament repair, removal of foreign bodies and debridement and placement of wound vac. Patient tolerated procedure and now is ready to be transferred back to TCU for continuation of IV antibiotics and PT. Discharge Exam - Head Exam Head Exam: ATRAUMATIC - Eye Exam Eye Exam: absent: Scleral icterus - ENT Exam ENT Exam: Mucous Membranes Moist - Respiratory Exam Respiratory Exam: NORMAL BREATHING PATTERN. absent: Wheezes, Respiratory Distress - Cardiovascular Exam Cardiovascular Exam: REGULAR RHYTHM, +S1, +S2 - GI/Abdominal Exam GI & Abdominal Exam: Soft. absent: Tenderness - Rectal Exam Rectal Exam: Deferred - Extremities Exam Extremities exam: joint swelling (left knee swollen with limited ROM) - Neurological Exam Neurological exam: Alert, Oriented x3 - Psychiatric Exam Psychiatric exam: Normal Affect - Skin Skin Exam: Dry, Intact Discharge Plan - Follow Up Plan Condition: GOOD Disposition: HOME/ ROUTINE Instructions: Revision Total Joint Arthroplasty (DC) Referrals: Jose Elias Chan III, MD [Primary Care Provider] -
[2017-02-18 21:07] VITALS: BP 130/81; PULSE 88
== END 2017-02-18 22:00 ==
LOC: H.OPSURG 11:37 → H.MEDSURG1 19:41 → INTOOBSV 19:41 → H.MEDSURG1 21:02
DX: T81.31XA Disruption of external operation (surgical) wound, not elsewhere classified, initial encounter (principal); Y83.8 Other surgical procedures as the cause of abnormal reaction of the patient, or of later complication, without mention of misadventure at the time of the procedure; D62 Acute posthemorrhagic anemia; E78.5 Hyperlipidemia, unspecified; G47.33 Obstructive sleep apnea (adult) (pediatric); Z96.652 Presence of left artificial knee joint; M10.9 Gout, unspecified; M65.9 Synovitis and tenosynovitis, unspecified; N40.0 Benign prostatic hyperplasia without lower urinary tract symptoms; I25.10 Atherosclerotic heart disease of native coronary artery without angina pectoris; R79.89 Other specified abnormal findings of blood chemistry; I10 Essential (primary) hypertension
CPT/HCPCS: 20610; 27310; 27427; 36415; 36430; 73560; 80048; 85025; 86850; 86900; 86920; 87015; 87070; 87075; 87101; 87116; 87181; 87206; 88304; 89051; 96365; 96366; 96367; 96372; 97162; G0378; G8978; G8979; J0330; J0692; J1650; J2001; J2405; J2704; J2710; J3010; J3370; J7030; J7120; P9051

== ENCOUNTER 2017-02-18 22:47 | Inpatient (IN) | payer OTHER ==
[2017-02-18 22:52] VITALS: BMI 32.5
[2017-02-19] MEDS ORDERED: Oxycodone/Acetaminophen 5/325 mg Tab PO PRN ×2 (02:21)
[2017-02-19] MEDS: Cefepime 1 GM in Sodium Chloride 0.9% 100 ML IVPB SCH ×2 (06:54→17:02)
[2017-02-19] MEDS: Lactobacillus Acidophilus 500 MU Cap PO SCH ×2 (08:53→16:51)
[2017-02-19] MEDS: Enoxaparin 40 mg Syringe SC SCH (08:57)
[2017-02-19] MEDS ORDERED: Patient's Own Med (Cefepime 1gm In Ns 100ml [Maxipime 1gm] 1 GM) IVPB SCH (09:00)
[2017-02-19 09:15] VITALS: RESP 20
--- NOTE | 2017-02-19 10:43 | CP.PCM.PN ---
Subjective - Date & Time of Evaluation Date of Evaluation: 02/19/17 Time of Evaluation: 10:40 - Subjective Subjective: s- PT COMFORTABLE;still noncompliant- HAS BENT KNEE TO FORTY DEGREES aGAISNT INSTRUCTION Objective - Vital Signs/Intake and Output Vital Signs (last 24 hours): Temp Pulse Resp BP Pulse Ox 97.9 F 84 20 149/86 97 02/19/17 09:14 02/19/17 09:14 02/19/17 09:14 02/19/17 09:14 02/19/17 09:14 - Medications Medications: Current Medications Acetaminophen (Tylenol 325mg Tab) 650 mg PO Q6 PRN PRN Reason: Fever >100.4 F Allopurinol (Zyloprim) 100 mg PO DAILY [facility] Last Admin: 02/19/17 08:58 Dose: 100 mg Aspirin (Ecotrin) 81 mg PO DAILY [facility] Last Admin: 02/19/17 08:54 Dose: 81 mg Atorvastatin Calcium (Lipitor) 10 mg PO HS [facility] Docusate Sodium (Colace) 100 mg PO BID [facility] Last Admin: 02/19/17 08:54 Dose: 100 mg Enoxaparin Sodium (Lovenox) 40 mg SC DAILY [facility] PRN Reason: Protocol Last Admin: 02/19/17 08:57 Dose: 40 mg Ferrous Sulfate (Feosol) 325 mg PO TID [facility] Last Admin: 02/19/17 08:56 Dose: 325 mg Cefepime HCl 1 gm/ Sodium (Chloride) 100 mls @ 100 mls/hr IVPB Q12H [facility] Last Admin: 02/19/17 06:54 Dose: 100 mls/hr Vancomycin HCl 500 mg/ Sodium (Chloride) 100 mls @ 100 mls/hr IVPB Q12 [facility] Lactobacillus Acidophilus (Bacid Acidophilus) 1 cap PO BID [facility] Last Admin: 02/19/17 08:53 Dose: 1 cap Losartan Potassium (Cozaar) 100 mg PO DAILY [facility] Last Admin: 02/19/17 08:55 Dose: 100 mg Metoprolol Tartrate (Lopressor) 50 mg PO Q12 [facility] Last Admin: 02/19/17 08:56 Dose: 50 mg Oxycodone/Acetaminophen (Percocet 5/325 Mg Tab) 1 tab PO Q4 PRN PRN Reason: Pain, moderate (4-7) Stop: 02/22/17 02:22 Oxycodone/Acetaminophen (Percocet 5/325 Mg Tab) 2 tab PO Q4 PRN PRN Reason: Pain, severe (8-10) Stop: 02/22/17 02:22 Sennosides (Senokot Tab) 8.6 mg PO BID [facility] Last Admin: 02/19/17 08:58 Dose: 8.6 mg Tamsulosin HCl (Flomax) 0.4 mg PO DAILY [facility] Last Admin: 02/19/17 08:56 Dose: 0.4 mg - Additional Findings Additional findings: oBJECTIVE STANCE/GAIT-DEFRRED PT PRESENTS IN WHEELCHAIR lKNEE IMMOBILIOZER improperly APPLIED KNEE IMMOBILIZER INTACT n/v INTACT NO GROSS/PROGRESSIVE DEFCIIT Assessment and Plan - Assessment and Plan (Free Text) Assessment: A- s/p repasir paytella ligament, denbridement and applx wound vac P- orthopedicallys stable- longer knee immobilkizer will be applied and pt is told NOT TO BEND KNEE!!!~
--- NOTE | 2017-02-19 13:35 | CP.PCM.HP ---
History of Present Illness - History of Present Illness History of Present Illness: cc: s/p washout knee 76 yo male with history of OA, LEONARDO, HTN, HLD, Renal Insufficiency and BPH had revision of left TKR on 12/13/2016 and was discharged from TCU on 12/24/2016. The next day patient fell from his wheelchair after hitting a bump in the street causing his surgical wound on the left knee to open. He was admitted at [facility] and then later transferred to [facility] because his orthopedist work here. Dr Blake, plastic surgeon, was consulted by orthopedist, and he recommended patellar ligament repair and primary wound closure. On 01/10/17 patient underwent left patellar ligament reconstruction and wound vac placement. He was then transferred back to TCU for rehab and recuperation. On 02/17/17 patient underwent another patellar ligament repair, removal of foreign bodies and debridement and placement of wound vac. Patient tolerated procedure and now is ready to be transferred back to TCU for continuation of IV antibiotics and PT. ROS: per HPI, 12 systems reviewed and negative MHx: Osteoarthritis b/l knee, HTN, HLD, CKD, BPH SHx: total 3 knee surgeries for osteoarthritis, cardiac cath, but no stents Allergies: NKDA Medications: Pending Family Hx: HTN Social Hx: Lives with family, no tobacco, no EtOH Temp Pulse Resp BP Pulse Ox 97.9 F 84 20 149/86 97 02/19/17 09:14 02/19/17 09:14 02/19/17 09:14 02/19/17 09:14 02/19/17 09:14 GEN: WDWN, alert, cooperative HEENT: NCAT, PERRL, EOMI NECK: supple, no JVD, no lymphadenopathy CARDIAC: +S1S2 RRR LUNG: CTAB No WRR ABD: SOFT NT ND BSX4 NO MASSES NO HSM EXT: +pedal pulses, equal strength DRESSING CDI NEURO: AAOx3 SKIN warm, dry PSYCH normal mood, normal affect labs pending Allergies No Known Allergies Allergy (Verified 12/18/16 00:41) Height & Weight Height 6 ft Weight 240 lb Start Date/Time Active Medications 02/19/17 02:21 Acetaminophen [Tylenol 325mg tab] 650 mg PO Q6 PRN oxyCODONE/Acetaminophen [Percocet 5/325 mg Tab] 1 tab PO Q4 PRN oxyCODONE/Acetaminophen [Percocet 5/325 mg Tab] 2 tab PO Q4 PRN 02/19/17 06:00 Cefepime [Maxipime] 1 gm Sodium Chloride 0.9% 100 ml IVPB Q12H 02/19/17 09:00 Allopurinol [Zyloprim] 100 mg PO DAILY Aspirin [Ecotrin] 81 mg PO DAILY Docusate [Colace] 100 mg PO BID Enoxaparin [Lovenox] 40 mg SC DAILY [facility] Clinical Indication: DVT/PE Prevention Ferrous Sulfate [Feosol] 325 mg PO TID Lactobacillus Acidophilus [Bacid Acidophilus] 1 cap PO BID Losartan [Cozaar] 100 mg PO DAILY Metoprolol Tartrate [Lopressor] 50 mg PO Q12 Sennosides A and B [Senokot Tab] 8.6 mg PO BID Tamsulosin [Flomax] 0.4 mg PO DAILY 02/19/17 21:00 Vancomycin [Vancomycin Inj] 500 mg Sodium Chloride 0.9% 100 ml IVPB Q12 02/19/17 22:00 Atorvastatin [Lipitor] 10 mg PO HS 76 yo male with history of OA, LEONARDO, HTN, HLD, Renal Insufficiency and BPH had revision of left TKR on 12/13/2016 and was discharged from TCU on 12/24/2016. The next day patient fell from his wheelchair after hitting a bump in the street causing his surgical wound on the left knee to open. He was admitted at [facility] and then later transferred to [facility] because his orthopedist work here. Dr Blake, plastic surgeon, was consulted by orthopedist, and he recommended patellar ligament repair and primary wound closure. On 01/10/17 patient underwent left patellar ligament reconstruction and wound vac placement. He was then transferred back to TCU for rehab and recuperation. On 02/17/17 patient underwent another patellar ligament repair, removal of foreign bodies and debridement and placement of wound vac. Patient tolerated procedure and now is ready to be transferred back to TCU for continuation of IV antibiotics and PT. Left Knee Wound Dehiscence 01/10/17 S/P Left Patella/Ligament Reconstruction and wound vac placement on Wound Culture + VRE and Psuedomonas 02/17/17 S/P another patellar ligament repair, removal of foreign bodies and debridement and placement of wound vac Maxipime to 2 gm IV 1x/day Vancomycin 500 mg IV q12 02/17/17 SYNOVIAL FLUID CULTURE: POSITIVE GRAM NEG RODS, culture sensitivity waiting Elevated LFTs, prior 02/10/17 abd U/S: No significant or acute findings. No gallstones. monitor Hx HTN Losartan 100 mg PO 1x/day Metoprolol 50 mg PO Q12H Norvasc 10 mg PO 1x/day Hx Acute Blood Loss Anemia STABLE Feosol 325 mg PO TID F/U CBC 02/09/17 Hx BPH Flomax 0.4 mg PO 1x/day Hx Gout Allopurinol 100 mg PO 1x/day Hx HLD Atorvastatin 10 mg PO 1x/day Hx Constipation Dulcolax 10 mg [place] Daily Colace 100 mg PO 2x/day Prophylactic Measures Tylenol 650 mg PO Q6H PRN Fever and Mild Pain Lactobacillus Sennisides Present on Admission - Present on Admission Any Indicators Present on Admission: No Past Patient History - Infectious Disease Hx of Infectious Diseases: VRE - Tetanus Immunizations Tetanus Immunization: Unknown - Past Medical History & Family History Past Medical History?: Yes - Past Social History Smoking Status: Former Smoker - CARDIAC Hx Cardiac Disorders: Yes Hx Hypercholesterolemia: Yes Hx Hypertension: Yes - PULMONARY Hx Respiratory Disorders: No Hx Sleep Apnea: Yes - NEUROLOGICAL Hx Neurological Disorder: No - HEENT Hx HEENT Problems: Yes Other/Comment: wears glasses - RENAL Hx Chronic Kidney Disease: Yes Other/Comment: renal insufficiency - ENDOCRINE/METABOLIC Hx Endocrine Disorders: No - HEMATOLOGICAL/ONCOLOGICAL Hx Blood Disorders: No Hx AIDS: No Hx Anemia: Yes Hx Blood Transfusions: Yes Hx Blood Transfusion Reaction: No Hx Human Immunodeficiency Virus (HIV): No - INTEGUMENTARY Hx Dermatological Problems: No - MUSCULOSKELETAL/RHEUMATOLOGICAL Hx Musculoskeletal Disorders: Yes Hx Arthritis: Yes Hx Degenerative Joint Disease: Yes Hx Falls: Yes Hx Osteoarthritis: Yes - GASTROINTESTINAL Hx Gastrointestinal Disorders: No - GENITOURINARY/GYNECOLOGICAL Hx Genitourinary Disorders: Yes Hx Prostate Problems: Yes - PSYCHIATRIC Hx Psychophysiologic Disorder: No Hx Anxiety: No Hx Emotional Abuse: No Hx Physical Abuse: No Hx Substance Use: No - SURGICAL HISTORY Hx Surgeries: Yes Hx Joint Replacement: Yes (TOTAL LEFT KNEE REPLACEMENT X 2) Other/Comment: LASER PROSTATE SX. 12/13/16 s/p left tkr revision. 01/10/17 Application of prevena L knee, prostate sx - ANESTHESIA Hx Anesthesia: Yes Hx Anesthesia Reactions: No Hx Malignant Hyperthermia: No Meds Allergies/Adverse Reactions: Allergies Allergy/AdvReac Type Severity Reaction Status Date / Time No Known Allergies Allergy Verified 12/18/16 00:41 Results - Vital Signs Recent Vital Signs: Last Vital Signs Temp 97.9 F 02/19/17 09:14 Pulse 84 02/19/17 09:14 Resp 20 02/19/17 09:14 BP 149/86 02/19/17 09:14 Pulse Ox 97 02/19/17 09:14
[2017-02-19 16:04] LABS: BASO % 0.6 % (0.0-2.0); EOS # 0.2 K/uL (0.0-0.7); EOS % 6.2 % (0.0-4.0); HEMATOCRIT 32.5 % (35.0-51.0); LYMPH # 0.8 K/uL (1.0-4.3); LYMPH % 23.4 % (20.0-40.0); MEAN CELL VOLUME 82.7 fl (80.0-94.0); MEAN CORPUSCULAR HEMOGLOBIN 27.3 pg (27.0-31.0); MEAN CORPUSCULAR HGB CONC 33.1 g/dL (33.0-37.0); MONO # 0.7 K/uL (0.0-0.8); MONO % 20.2 % (0.0-10.0); NEUT # 1.7 K/uL (1.8-7.0); NEUT % 49.6 % (50.0-75.0); NRBC % 0.5 % (0.0-0.0); PLATELET COUNT 159 K/uL (130-400); RED CELL DISTRIBUTION WIDTH 17.1 % (11.5-14.5); WHITE BLOOD COUNT 3.5 K/uL (4.8-10.8)
[2017-02-19 16:17] LABS: ALB/GLOB RATIO 0.9 (1.0-2.1); ALKALINE PHOSPHATASE 59 U/L (38-126); ALT/SGPT 38 U/L (21-72); AST/SGOT 28 U/L (17-59); BILIRUBIN,TOTAL 0.3 mg/dl (0.2-1.3); BLOOD UREA NITROGEN 19 mg/dl (9-20); CALCIUM 9.9 mg/dL (8.4-10.2); CARBON DIOXIDE 26 mmol/L (22-30); CHLORIDE 106 mmol/L (98-107); GFR AFRICAN-AMERICAN > 60; GLUCOSE,RANDOM 107 mg/dL (75-110); SODIUM 139 mmol/l (132-148)
[2017-02-19 16:21] LABS: POTASSIUM 3.5 MMOL/L (3.6-5.0)
--- NOTE | 2017-02-19 17:17 | CP.PCM.CON ---
History of Present Illness - History of Present Illness History of Present Illness: THE PATIENT IS A 76 YEAR OLD MALE WHO UNDERWENT MULTIPLE LEFT KNEE SURGERIES THE LAST ONE BEING ON 02/17/17 WHEN HE UNDERWENT LEFT PATELLA LIGAMENT REPAIR AND HE IS NOW BACK IN TCU TO COMPLETE HIS IV ANTIBIOTIC TREATMENT. HE ALSO HAD A HIS TORY OF MILD CAD, HYPERTENSION AND HYPERLIPIDEMIA. CARDIOLOGY WAS ASKED TO FOLLOW HIM. HE DENIES CHEST PAIN OR SOB. Past Patient History - Infectious Disease Hx of Infectious Diseases: VRE - Tetanus Immunizations Tetanus Immunization: Unknown - Past Medical History & Family History Past Medical History?: Yes - Past Social History Smoking Status: Former Smoker - CARDIAC Hx Cardiac Disorders: Yes Hx Hypercholesterolemia: Yes Hx Hypertension: Yes - PULMONARY Hx Respiratory Disorders: No Hx Sleep Apnea: Yes - NEUROLOGICAL Hx Neurological Disorder: No - HEENT Hx HEENT Problems: Yes Other/Comment: wears glasses - RENAL Hx Chronic Kidney Disease: Yes Other/Comment: renal insufficiency - ENDOCRINE/METABOLIC Hx Endocrine Disorders: No - HEMATOLOGICAL/ONCOLOGICAL Hx Blood Disorders: No Hx AIDS: No Hx Anemia: Yes Hx Blood Transfusions: Yes Hx Blood Transfusion Reaction: No Hx Human Immunodeficiency Virus (HIV): No - INTEGUMENTARY Hx Dermatological Problems: No - MUSCULOSKELETAL/RHEUMATOLOGICAL Hx Musculoskeletal Disorders: Yes Hx Arthritis: Yes Hx Degenerative Joint Disease: Yes Hx Falls: Yes Hx Osteoarthritis: Yes - GASTROINTESTINAL Hx Gastrointestinal Disorders: No - GENITOURINARY/GYNECOLOGICAL Hx Genitourinary Disorders: Yes Hx Prostate Problems: Yes - PSYCHIATRIC Hx Psychophysiologic Disorder: No Hx Anxiety: No Hx Emotional Abuse: No Hx Physical Abuse: No Hx Substance Use: No - SURGICAL HISTORY Hx Surgeries: Yes Hx Joint Replacement: Yes (TOTAL LEFT KNEE REPLACEMENT X 2) Other/Comment: LASER PROSTATE SX. 12/13/16 s/p left tkr revision. 01/10/17 Application of prevena L knee, prostate sx - ANESTHESIA Hx Anesthesia: Yes Hx Anesthesia Reactions: No Hx Malignant Hyperthermia: No Meds Allergies/Adverse Reactions: Allergies Allergy/AdvReac Type Severity Reaction Status Date / Time No Known Allergies Allergy Verified 12/18/16 00:41 - Medications Medications: Current Medications Acetaminophen (Tylenol 325mg Tab) 650 mg PO Q6 PRN PRN Reason: Fever >100.4 F Allopurinol (Zyloprim) 100 mg PO DAILY [facility] Last Admin: 02/19/17 08:58 Dose: 100 mg Amlodipine Besylate (Norvasc) 10 mg PO DAILY [facility] Last Admin: 02/19/17 14:52 Dose: 10 mg Aspirin (Ecotrin) 81 mg PO DAILY [facility] Last Admin: 02/19/17 08:54 Dose: 81 mg Atorvastatin Calcium (Lipitor) 10 mg PO [facility] Docusate Sodium (Colace) 100 mg PO BID [facility] Last Admin: 02/19/17 16:52 Dose: 100 mg Enoxaparin Sodium (Lovenox) 40 mg SC DAILY [facility] PRN Reason: Protocol Last Admin: 02/19/17 08:57 Dose: 40 mg Ferrous Sulfate (Feosol) 325 mg PO TID [facility] Last Admin: 02/19/17 16:52 Dose: 325 mg Cefepime HCl 1 gm/ Sodium (Chloride) 100 mls @ 100 mls/hr IVPB Q12H [facility] Last Admin: 02/19/17 17:02 Dose: 100 mls/hr Vancomycin HCl 500 mg/ Sodium (Chloride) 100 mls @ 100 mls/hr IVPB Q12 [facility] Lactobacillus Acidophilus (Bacid Acidophilus) 1 cap PO BID [facility] Last Admin: 02/19/17 16:51 Dose: 1 cap Losartan Potassium (Cozaar) 100 mg PO DAILY [facility] Last Admin: 02/19/17 08:55 Dose: 100 mg Metoprolol Tartrate (Lopressor) 50 mg PO Q12 [facility] Last Admin: 02/19/17 08:56 Dose: 50 mg Oxycodone/Acetaminophen (Percocet 5/325 Mg Tab) 1 tab PO Q4 PRN PRN Reason: Pain, moderate (4-7) Stop: 02/22/17 02:22 Oxycodone/Acetaminophen (Percocet 5/325 Mg Tab) 2 tab PO Q4 PRN PRN Reason: Pain, severe (8-10) Stop: 02/22/17 02:22 Sennosides (Senokot Tab) 8.6 mg PO BID [facility] Last Admin: 02/19/17 16:54 Dose: 8.6 mg Tamsulosin HCl (Flomax) 0.4 mg PO DAILY [facility] Last Admin: 02/19/17 08:56 Dose: 0.4 mg Physical Exam - Respiratory Exam Respiratory Exam: Clear to Auscultation Bilateral - Cardiovascular Exam Cardiovascular Exam: REGULAR RHYTHM, +S1, +S2 Results - Vital Signs Recent Vital Signs: Last Vital Signs Temp 98.1 F 02/19/17 16:46 Pulse 76 02/19/17 16:46 Resp 20 02/19/17 16:46 BP 130/71 02/19/17 16:46 Pulse Ox 99 02/19/17 16:46 - Labs Result Diagrams: 02/19/17 15:30 02/19/17 15:30 Labs: Laboratory Results - last 24 hr 02/19/17 02/19/17 15:30 15:30 WBC 3.5 L RBC 3.93 L Hgb 10.7 L Hct 32.5 L MCV 82.7 MCH 27.3 MCHC 33.1 RDW 17.1 H Plt Count 159 MPV 8.0 Neut % (Auto) 49.6 L Lymph % (Auto) 23.4 [place] % (Auto) 20.2 H Eos % (Auto) 6.2 H Baso % (Auto) 0.6 Neut # 1.7 L Lymph # 0.8 L [place] # 0.7 Eos # 0.2 Baso # 0.0 Sodium 139 Potassium 3.5 L Chloride 106 Carbon Dioxide 26 Anion Gap 11 BUN 19 Creatinine 1.1 Est GFR ( Amer) > 60 Est GFR (Non-Af Amer) > 60 Random Glucose 107 Calcium 9.9 Total Bilirubin 0.3 AST 28 ALT 38 Alkaline Phosphatase 59 Total Protein 6.0 L Albumin 2.9 L Globulin 3.1 Albumin/Globulin Ratio 0.9 L Assessment & Plan - Assessment and Plan (Free Text) Assessment: S/P LEFT KNEE SURGERY MILD CAD HYPERTENSION HYPERLIPIDEMIA Plan: CONTINUE ANTIBIOTICS, ASPIRIN, ATORVASTATIN, AMLODIPINE, METOPROLOL, LOSARTAN
[2017-02-19 18:30] LABS: EOSINOPHIL 3 % (0-7); NEUTROPHIL 53 % (42-75); TOTAL CELLS COUNTED 100
[2017-02-19 18:31] LABS: GIANT PLATELETS PRESENT; LARGE PLATELETS PRESENT
[2017-02-20] MEDS: Cefepime 1 GM in Sodium Chloride 0.9% 100 ML IVPB SCH ×2 (05:20→18:47)
[2017-02-20 07:21] LABS: BASO % 0.5 % (0.0-2.0); EOS # 0.3 K/uL (0.0-0.7); EOS % 6.8 % (0.0-4.0); HEMATOCRIT 30.8 % (35.0-51.0); LYMPH # 0.8 K/uL (1.0-4.3); LYMPH % 22.8 % (20.0-40.0); MEAN CORPUSCULAR HEMOGLOBIN 26.5 pg (27.0-31.0); MEAN CORPUSCULAR HGB CONC 31.9 g/dL (33.0-37.0); MONO # 0.8 K/uL (0.0-0.8); MONO % 22.6 % (0.0-10.0); NEUT # 1.7 K/uL (1.8-7.0); NEUT % 47.3 % (50.0-75.0); PLATELET COUNT 154 K/uL (130-400); RED CELL DISTRIBUTION WIDTH 17.4 % (11.5-14.5); WHITE BLOOD COUNT 3.7 K/uL (4.8-10.8)
[2017-02-20 07:38] LABS: ALKALINE PHOSPHATASE 61 U/L (38-126); ALT/SGPT 38 U/L (21-72); AST/SGOT 27 U/L (17-59); BILIRUBIN,TOTAL 0.3 mg/dl (0.2-1.3); BLOOD UREA NITROGEN 16 mg/dl (9-20); CALCIUM 9.7 mg/dL (8.4-10.2); CARBON DIOXIDE 25 mmol/L (22-30); CHLORIDE 109 mmol/L (98-107); GFR AFRICAN-AMERICAN > 60; GLUCOSE,RANDOM 91 mg/dL (75-110); POTASSIUM 3.4 MMOL/L (3.6-5.0); SODIUM 140 mmol/l (132-148); TOTAL PROTEIN 5.7 G/DL (6.3-8.2)
[2017-02-20] MEDS: Enoxaparin 40 mg Syringe SC SCH (09:13)
[2017-02-20] MEDS: Lactobacillus Acidophilus 500 MU Cap PO SCH ×2 (09:18→16:26)
[2017-02-20 09:22] LABS: EOSINOPHIL 7 % (0-7); NEUTROPHIL 49 % (42-75); TOTAL CELLS COUNTED 100
[2017-02-20 09:23] LABS: LARGE PLATELETS PRESENT
[2017-02-21] MEDS: Cefepime 1 GM in Sodium Chloride 0.9% 100 ML IVPB SCH ×2 (05:54→17:35)
[2017-02-21] MEDS: Lactobacillus Acidophilus 500 MU Cap PO SCH ×2 (08:38→17:36)
[2017-02-21] MEDS: Enoxaparin 40 mg Syringe SC SCH (08:40)
--- NOTE | 2017-02-21 12:44 | CP.PCM.PN ---
Subjective - Date & Time of Evaluation Date of Evaluation: 02/21/17 Time of Evaluation: 11:30 - Subjective Subjective: NO COMPLAINTS Objective - Vital Signs/Intake and Output Vital Signs (last 24 hours): Temp Pulse Resp BP Pulse Ox 98.2 F 108 H 20 132/85 98 02/21/17 08:19 02/21/17 08:39 02/21/17 08:19 02/21/17 08:39 02/21/17 08:19 - Medications Medications: Current Medications Acetaminophen (Tylenol 325mg Tab) 650 mg PO Q6 PRN PRN Reason: Fever >100.4 F Allopurinol (Zyloprim) 100 mg PO DAILY [facility] Last Admin: 02/21/17 08:38 Dose: 100 mg Amlodipine Besylate (Norvasc) 10 mg PO DAILY [facility] Last Admin: 02/21/17 08:39 Dose: 10 mg Aspirin (Ecotrin) 81 mg PO DAILY [facility] Last Admin: 02/21/17 08:38 Dose: 81 mg Atorvastatin Calcium (Lipitor) 10 mg PO HS [facility] Last Admin: 02/20/17 21:01 Dose: 10 mg Docusate Sodium (Colace) 100 mg PO BID [facility] Last Admin: 02/21/17 08:38 Dose: 100 mg Enoxaparin Sodium (Lovenox) 40 mg SC DAILY [facility] PRN Reason: Protocol Last Admin: 02/21/17 08:40 Dose: 40 mg Ferrous Sulfate (Feosol) 325 mg PO TID [facility] Last Admin: 02/21/17 08:38 Dose: 325 mg Cefepime HCl 1 gm/ Sodium (Chloride) 100 mls @ 100 mls/hr IVPB Q12H [facility] Last Admin: 02/21/17 05:54 Dose: 100 mls/hr Vancomycin HCl 500 mg/ Sodium (Chloride) 100 mls @ 100 mls/hr IVPB Q12@0500, 1700 [facility] Lactobacillus Acidophilus (Bacid Acidophilus) 1 cap PO BID [facility] Last Admin: 02/21/17 08:38 Dose: 1 cap Losartan Potassium (Cozaar) 100 mg PO DAILY [facility] Last Admin: 02/21/17 08:39 Dose: 100 mg Metoprolol Tartrate (Lopressor) 50 mg PO Q12 [facility] Last Admin: 02/21/17 08:38 Dose: 50 mg Oxycodone/Acetaminophen (Percocet 5/325 Mg Tab) 1 tab PO Q4 PRN PRN Reason: Pain, moderate (4-7) Stop: 02/22/17 02:22 Last Admin: 02/19/17 21:57 Dose: 1 tab Oxycodone/Acetaminophen (Percocet 5/325 Mg Tab) 2 tab PO Q4 PRN PRN Reason: Pain, severe (8-10) Stop: 02/22/17 02:22 Sennosides (Senokot Tab) 8.6 mg PO BID [facility] Last Admin: 02/21/17 08:38 Dose: 8.6 mg Tamsulosin HCl (Flomax) 0.4 mg PO DAILY [facility] Last Admin: 02/21/17 08:38 Dose: 0.4 mg - Labs Labs: 02/20/17 05:30 02/20/17 05:30 - Respiratory Exam Respiratory Exam: Clear to Ausculation Bilateral - Cardiovascular Exam Cardiovascular Exam: REGULAR RHYTHM, +S1, +S2 Assessment and Plan - Assessment and Plan (Free Text) Assessment: S/P MULTIPLE LEFT KNEE SURGERIES MILD CAD HYPERTENSION HYPERLIPIDEMIA Plan: CONTINUE IV ANTIBIOTICS, LOSARTAN, METOPROLOL, AMLODIPINE, ATORVASTATIN, ASPIRIN , LOVENOX
[2017-02-21] MEDS ORDERED: Potassium Chloride 20 mEq ER Tab PO ONE (14:49)
--- NOTE | 2017-02-21 17:37 | CP.PCM.PN ---
Subjective - Date & Time of Evaluation Date of Evaluation: 02/21/17 Time of Evaluation: 17:35 - Subjective Subjective: I D NOTE WOUND CULTURE NOW SHOWING ACHROMOBACTER SPECIES ,MDR AWAITING FURTHER SENSITIVITIES HAVE ADDED PO BACTRIM DS WILL D/C MAXIPEME PENDING SENSITIVITIES ,HAD DISCUSSED c MICRO/PATH Objective - Vital Signs/Intake and Output Vital Signs (last 24 hours): Temp Pulse Resp BP Pulse Ox 97.9 F 79 20 145/83 98 02/21/17 16:42 02/21/17 16:42 02/21/17 16:42 02/21/17 16:42 02/21/17 16:42 - Medications Medications: Current Medications Acetaminophen (Tylenol 325mg Tab) 650 mg PO Q6 PRN PRN Reason: Fever >100.4 F Allopurinol (Zyloprim) 100 mg PO DAILY [facility] Last Admin: 02/21/17 08:38 Dose: 100 mg Amlodipine Besylate (Norvasc) 10 mg PO DAILY [facility] Last Admin: 02/21/17 08:39 Dose: 10 mg Aspirin (Ecotrin) 81 mg PO DAILY [facility] Last Admin: 02/21/17 08:38 Dose: 81 mg Atorvastatin Calcium (Lipitor) 10 mg PO HS [facility] Last Admin: 02/20/17 21:01 Dose: 10 mg Docusate Sodium (Colace) 100 mg PO BID [facility] Last Admin: 02/21/17 08:38 Dose: 100 mg Enoxaparin Sodium (Lovenox) 40 mg SC DAILY [facility] PRN Reason: Protocol Last Admin: 02/21/17 08:40 Dose: 40 mg Ferrous Sulfate (Feosol) 325 mg PO TID [facility] Last Admin: 02/21/17 12:42 Dose: 325 mg Cefepime HCl 1 gm/ Sodium (Chloride) 100 mls @ 100 mls/hr IVPB Q12H [facility] Last Admin: 02/21/17 05:54 Dose: 100 mls/hr Vancomycin HCl 500 mg/ Sodium (Chloride) 100 mls @ 100 mls/hr IVPB Q12@0500, 1700 [facility] Lactobacillus Acidophilus (Bacid Acidophilus) 1 cap PO BID [facility] Last Admin: 02/21/17 08:38 Dose: 1 cap Losartan Potassium (Cozaar) 100 mg PO DAILY [facility] Last Admin: 02/21/17 08:39 Dose: 100 mg Metoprolol Tartrate (Lopressor) 50 mg PO Q12 [facility] Last Admin: 02/21/17 08:38 Dose: 50 mg Oxycodone/Acetaminophen (Percocet 5/325 Mg Tab) 1 tab PO Q4 PRN PRN Reason: Pain, moderate (4-7) Stop: 02/22/17 02:22 Last Admin: 02/19/17 21:57 Dose: 1 tab Oxycodone/Acetaminophen (Percocet 5/325 Mg Tab) 2 tab PO Q4 PRN PRN Reason: Pain, severe (8-10) Stop: 02/22/17 02:22 Sennosides (Senokot Tab) 8.6 mg PO BID [facility] Last Admin: 02/21/17 08:38 Dose: 8.6 mg Tamsulosin HCl (Flomax) 0.4 mg PO DAILY [facility] Last Admin: 02/21/17 08:38 Dose: 0.4 mg Trimethoprim/Sulfamethoxazole (Bactrim Ds Tab) 1 tab PO Q12 [facility] - Labs Labs: 02/20/17 05:30 02/20/17 05:30
[2017-02-21] MEDS: Tmp-Smz 800 mg-160 mg DS Tab PO SCH (22:09)
[2017-02-22] MEDS: Cefepime 1 GM in Sodium Chloride 0.9% 100 ML IVPB SCH (06:37)
[2017-02-22] MEDS: Enoxaparin 40 mg Syringe SC SCH (08:37)
[2017-02-22] MEDS: Lactobacillus Acidophilus 500 MU Cap PO SCH ×2 (08:38→17:10)
[2017-02-22] MEDS: Tmp-Smz 800 mg-160 mg DS Tab PO SCH (08:38)
--- NOTE | 2017-02-22 11:06 | CP.PCM.PN ---
Subjective - Date & Time of Evaluation Date of Evaluation: 02/22/17 Time of Evaluation: 10:30 - Subjective Subjective: NO COMPLAINTS Objective - Vital Signs/Intake and Output Vital Signs (last 24 hours): Temp Pulse Resp BP Pulse Ox 98.4 F 80 20 155/69 H 96 02/22/17 08:27 02/22/17 08:40 02/22/17 08:27 02/22/17 08:40 02/22/17 08:27 - Medications Medications: Current Medications Acetaminophen (Tylenol 325mg Tab) 650 mg PO Q6 PRN PRN Reason: Fever >100.4 F Allopurinol (Zyloprim) 100 mg PO DAILY [facility] Last Admin: 02/22/17 08:40 Dose: 100 mg Amlodipine Besylate (Norvasc) 10 mg PO DAILY [facility] Last Admin: 02/22/17 08:40 Dose: 10 mg Aspirin (Ecotrin) 81 mg PO DAILY [facility] Last Admin: 02/22/17 08:39 Dose: 81 mg Atorvastatin Calcium (Lipitor) 10 mg PO HS [facility] Last Admin: 02/21/17 22:08 Dose: 10 mg Docusate Sodium (Colace) 100 mg PO BID [facility] Last Admin: 02/22/17 08:38 Dose: 100 mg Ferrous Sulfate (Feosol) 325 mg PO TID [facility] Last Admin: 02/22/17 08:39 Dose: 325 mg Cefepime HCl 1 gm/ Sodium (Chloride) 100 mls @ 100 mls/hr IVPB Q12H [facility] Last Admin: 02/22/17 06:37 Dose: 100 mls/hr Vancomycin HCl 500 mg/ Sodium (Chloride) 100 mls @ 100 mls/hr IVPB Q12@0500, 1700 [facility] Last Admin: 02/22/17 05:00 Dose: 100 mls/hr Lactobacillus Acidophilus (Bacid Acidophilus) 1 cap PO BID [facility] Last Admin: 02/22/17 08:38 Dose: 1 cap Losartan Potassium (Cozaar) 100 mg PO DAILY [facility] Last Admin: 02/22/17 08:38 Dose: 100 mg Metoprolol Tartrate (Lopressor) 50 mg PO Q12 [facility] Last Admin: 02/22/17 08:39 Dose: 50 mg Sennosides (Senokot Tab) 8.6 mg PO BID [facility] Last Admin: 02/22/17 08:40 Dose: 8.6 mg Tamsulosin HCl (Flomax) 0.4 mg PO DAILY [facility] Last Admin: 02/22/17 08:39 Dose: 0.4 mg Trimethoprim/Sulfamethoxazole (Bactrim Ds Tab) 1 tab PO Q12 [facility] Last Admin: 02/22/17 08:38 Dose: 1 tab - Labs Labs: 02/20/17 05:30 02/20/17 05:30 - Respiratory Exam Respiratory Exam: Clear to Ausculation Bilateral - Cardiovascular Exam Cardiovascular Exam: REGULAR RHYTHM, +S1, +S2 - Additional Findings Additional findings: ID NOTE REVIEWED Assessment and Plan - Assessment and Plan (Free Text) Assessment: LEFT KNEE SURGERY MILD CAD-STABLE HYPERTENSION HYPERLIPIDEMIA Plan: CONTINUE ANTIBIOTICS PER ID CONTINUE LOSARTAN, METOPROLOL, AMLODIPINE, ATORVASTATIN, ASPIRIN, LOVENOX
--- NOTE | 2017-02-22 11:12 | CP.PCM.PN ---
Subjective - Date & Time of Evaluation Date of Evaluation: 02/22/17 Time of Evaluation: 11:07 - Subjective Subjective: pt doing well today no complaints tolerating abx well NAD HD stable Objective - Vital Signs/Intake and Output Vital Signs (last 24 hours): Temp Pulse Resp BP Pulse Ox 98.4 F 80 20 155/69 H 96 02/22/17 08:27 02/22/17 08:40 02/22/17 08:27 02/22/17 08:40 02/22/17 08:27 GEN: WDWN, alert, cooperative HEENT: NCAT, PERRL, EOMI NECK: supple, no JVD, no lymphadenopathy CARDIAC: +S1S2 RRR LUNG: CTAB No WRR ABD: SOFT NT ND BSX4 NO MASSES NO HSM EXT: +pedal pulses, wrapped LLE NEURO: AAOx3 SKIN warm, dry PSYCH normal mood, normal affect - Medications Medications: Current Medications Acetaminophen (Tylenol 325mg Tab) 650 mg PO Q6 PRN PRN Reason: Fever >100.4 F Allopurinol (Zyloprim) 100 mg PO DAILY [facility] Last Admin: 02/22/17 08:40 Dose: 100 mg Amlodipine Besylate (Norvasc) 10 mg PO DAILY [facility] Last Admin: 02/22/17 08:40 Dose: 10 mg Aspirin (Ecotrin) 81 mg PO DAILY [facility] Last Admin: 02/22/17 08:39 Dose: 81 mg Atorvastatin Calcium (Lipitor) 10 mg PO HS [facility] Last Admin: 02/21/17 22:08 Dose: 10 mg Docusate Sodium (Colace) 100 mg PO BID [facility] Last Admin: 02/22/17 08:38 Dose: 100 mg Ferrous Sulfate (Feosol) 325 mg PO TID [facility] Last Admin: 02/22/17 08:39 Dose: 325 mg Cefepime HCl 1 gm/ Sodium (Chloride) 100 mls @ 100 mls/hr IVPB Q12H [facility] Last Admin: 02/22/17 06:37 Dose: 100 mls/hr Vancomycin HCl 500 mg/ Sodium (Chloride) 100 mls @ 100 mls/hr IVPB Q12@0500, 1700 [facility] Last Admin: 02/22/17 05:00 Dose: 100 mls/hr Lactobacillus Acidophilus (Bacid Acidophilus) 1 cap PO BID [facility] Last Admin: 02/22/17 08:38 Dose: 1 cap Losartan Potassium (Cozaar) 100 mg PO DAILY [facility] Last Admin: 02/22/17 08:38 Dose: 100 mg Metoprolol Tartrate (Lopressor) 50 mg PO Q12 [facility] Last Admin: 02/22/17 08:39 Dose: 50 mg Sennosides (Senokot Tab) 8.6 mg PO BID [facility] Last Admin: 02/22/17 08:40 Dose: 8.6 mg Tamsulosin HCl (Flomax) 0.4 mg PO DAILY [facility] Last Admin: 02/22/17 08:39 Dose: 0.4 mg Trimethoprim/Sulfamethoxazole (Bactrim Ds Tab) 1 tab PO Q12 [facility] Last Admin: 02/22/17 08:38 Dose: 1 tab - Labs Labs: 02/20/17 05:30 02/20/17 05:30 Assessment and Plan - Assessment and Plan (Free Text) Plan: 76 yo male with history of OA, LEONARDO, HTN, HLD, Renal Insufficiency and BPH had revision of left TKR on 12/13/2016 and was discharged from TCU on 12/24/2016. The next day patient fell from his wheelchair after hitting a bump in the street causing his surgical wound on the left knee to open. He was admitted at [facility] and then later transferred to [facility] because his orthopedist work here. Dr Blake, plastic surgeon, was consulted by orthopedist, and he recommended patellar ligament repair and primary wound closure. On 01/10/17 patient underwent left patellar ligament reconstruction and wound vac placement. He was then transferred back to TCU for rehab and recuperation. On 02/17/17 patient underwent another patellar ligament repair, removal of foreign bodies and debridement and placement of wound vac. Patient tolerated procedure and now is ready to be transferred back to TCU for continuation of IV antibiotics and PT. Left Knee Wound Dehiscence 01/10/17 S/P Left Patella/Ligament Reconstruction and wound vac placement on Wound Culture + VRE and Psuedomonas 02/17/17 S/P another patellar ligament repair, removal of foreign bodies and debridement and placement of wound vac PT ON BACTRIM AND VANCOMYCIN CULTURES: POSITIVE FOR ACHROMOBACTER SPECIES SENSITIVE TO: TMPSMX <20 SENSITIVE TO: CEFTAZ/AVIBACTAM SENSITIVE TO: COLISITN <1 DISCONTINUED Maxipime to 2 gm IV 1x/day Vancomycin 500 mg IV q12 02/17/17 SYNOVIAL FLUID CULTURE: POSITIVE GRAM NEG RODS, culture sensitivity waiting Elevated LFTs, prior 02/10/17 abd U/S: No significant or acute findings. No gallstones. monitor Hx HTN Losartan 100 mg PO 1x/day Metoprolol 50 mg PO Q12H Norvasc 10 mg PO 1x/day Hx Acute Blood Loss Anemia STABLE Feosol 325 mg PO TID F/U CBC 02/09/17 Hx BPH Flomax 0.4 mg PO 1x/day Hx Gout Allopurinol 100 mg PO 1x/day Hx HLD Atorvastatin 10 mg PO 1x/day Hx Constipation Dulcolax 10 mg SC Daily Colace 100 mg PO 2x/day Prophylactic Measures Tylenol 650 mg PO Q6H PRN Fever and Mild Pain Lactobacillus Sennisides
--- NOTE | 2017-02-22 11:50 | CP.PCM.PN ---
Subjective - Date & Time of Evaluation Date of Evaluation: 02/22/17 Time of Evaluation: 11:45 - Subjective Subjective: Patellar graft over left knee debrided by Dr. Chan. Noted that the remnant of the patellar ligament is tacked to the tibia. Less undermining of the wound margins. Size of the wound measures 15 x 8 cm. No local signs of infection. Less edema. One 1.0 cm open area over the anterior thigh that is closing by secondary intention healing. PLAN: Wound vac therapy to the knee with silver impregnated foam. Aquacel Ag Hydrofiber wound dressing to the open area over the thigh. Change Vac and Aquacel dressings twice a week (Tuesday and Tuesday). Will F/U on 03/01/17. Neil Blake M.D. Objective - Vital Signs/Intake and Output Vital Signs (last 24 hours): Temp Pulse Resp BP Pulse Ox 98.4 F 80 20 155/69 H 96 02/22/17 08:27 02/22/17 08:40 02/22/17 08:27 02/22/17 08:40 02/22/17 08:27 - Medications Medications: Current Medications Acetaminophen (Tylenol 325mg Tab) 650 mg PO Q6 PRN PRN Reason: Fever >100.4 F Allopurinol (Zyloprim) 100 mg PO DAILY [facility] Last Admin: 02/22/17 08:40 Dose: 100 mg Amlodipine Besylate (Norvasc) 10 mg PO DAILY [facility] Last Admin: 02/22/17 08:40 Dose: 10 mg Aspirin (Ecotrin) 81 mg PO DAILY [facility] Last Admin: 02/22/17 08:39 Dose: 81 mg Atorvastatin Calcium (Lipitor) 10 mg PO HS [facility] Last Admin: 02/21/17 22:08 Dose: 10 mg Docusate Sodium (Colace) 100 mg PO BID [facility] Last Admin: 02/22/17 08:38 Dose: 100 mg Ferrous Sulfate (Feosol) 325 mg PO TID [facility] Last Admin: 02/22/17 08:39 Dose: 325 mg Vancomycin HCl 500 mg/ Sodium (Chloride) 100 mls @ 100 mls/hr IVPB Q12@0500, 1700 [facility] Last Admin: 02/22/17 05:00 Dose: 100 mls/hr Ceftazidime/Avibactam 1.25 gm/ (Sodium Chloride) 100 mls @ 100 mls/hr IVPB Q8H [facility] Lactobacillus Acidophilus (Bacid Acidophilus) 1 cap PO BID [facility] Last Admin: 02/22/17 08:38 Dose: 1 cap Losartan Potassium (Cozaar) 100 mg PO DAILY [facility] Last Admin: 02/22/17 08:38 Dose: 100 mg Metoprolol Tartrate (Lopressor) 50 mg PO Q12 [facility] Last Admin: 02/22/17 08:39 Dose: 50 mg Sennosides (Senokot Tab) 8.6 mg PO BID [facility] Last Admin: 02/22/17 08:40 Dose: 8.6 mg Tamsulosin HCl (Flomax) 0.4 mg PO DAILY [facility] Last Admin: 02/22/17 08:39 Dose: 0.4 mg - Labs Labs: 02/20/17 05:30 02/20/17 05:30
--- NOTE | 2017-02-22 17:17 | CP.PCM.PN ---
Subjective - Date & Time of Evaluation Date of Evaluation: 02/22/17 Time of Evaluation: 17:11 - Subjective Subjective: I D NOTE HAVE REVIEWED NOTES AND PICTURES AFTER DRESSING CHANGE GIANACTER IS SENSITIVE TO AVYCAZ WHICH I HAVE STARTED MAXIPEME IS D/MAREN Objective - Vital Signs/Intake and Output Vital Signs (last 24 hours): Temp Pulse Resp BP Pulse Ox 99.3 F 86 20 130/74 100 02/22/17 16:32 02/22/17 16:32 02/22/17 16:32 02/22/17 16:32 02/22/17 16:32 - Medications Medications: Current Medications Acetaminophen (Tylenol 325mg Tab) 650 mg PO Q6 PRN PRN Reason: Fever >100.4 F Allopurinol (Zyloprim) 100 mg PO DAILY [facility] Last Admin: 02/22/17 08:40 Dose: 100 mg Amlodipine Besylate (Norvasc) 10 mg PO DAILY [facility] Last Admin: 02/22/17 08:40 Dose: 10 mg Aspirin (Ecotrin) 81 mg PO DAILY [facility] Last Admin: 02/22/17 08:39 Dose: 81 mg Atorvastatin Calcium (Lipitor) 10 mg PO HS [facility] Last Admin: 02/21/17 22:08 Dose: 10 mg Docusate Sodium (Colace) 100 mg PO BID [facility] Last Admin: 02/22/17 08:38 Dose: 100 mg Ferrous Sulfate (Feosol) 325 mg PO TID [facility] Last Admin: 02/22/17 13:23 Dose: 325 mg Vancomycin HCl 500 mg/ Sodium (Chloride) 100 mls @ 100 mls/hr IVPB Q12@0500, 1700 [facility] Last Admin: 02/22/17 05:00 Dose: 100 mls/hr Ceftazidime/Avibactam 1.25 gm/ (Sodium Chloride) 100 mls @ 100 mls/hr IVPB Q8@ 0500,1300,2100 [facility] Last Admin: 02/22/17 13:21 Dose: 100 mls/hr Lactobacillus Acidophilus (Bacid Acidophilus) 1 cap PO BID [facility] Last Admin: 02/22/17 08:38 Dose: 1 cap Losartan Potassium (Cozaar) 100 mg PO DAILY [facility] Last Admin: 02/22/17 08:38 Dose: 100 mg Metoprolol Tartrate (Lopressor) 50 mg PO Q12 [facility] Last Admin: 02/22/17 08:39 Dose: 50 mg Sennosides (Senokot Tab) 8.6 mg PO BID [facility] Last Admin: 02/22/17 08:40 Dose: 8.6 mg Tamsulosin HCl (Flomax) 0.4 mg PO DAILY [facility] Last Admin: 02/22/17 08:39 Dose: 0.4 mg - Labs Labs: 02/20/17 05:30 02/20/17 05:30
[2017-02-22] MEDS ORDERED: Oxycodone/Acetaminophen 5/325 mg Tab PO PRN ×2 (21:39→21:40)
[2017-02-23] MEDS: Lactobacillus Acidophilus 500 MU Cap PO SCH ×2 (08:34→16:53)
--- NOTE | 2017-02-23 13:02 | CP.PCM.PN ---
Subjective - Date & Time of Evaluation Date of Evaluation: 02/23/17 Time of Evaluation: 12:00 - Subjective Subjective: NO NEW COMPLAINTS Objective - Vital Signs/Intake and Output Vital Signs (last 24 hours): Temp Pulse Resp BP Pulse Ox 97.5 F L 69 20 143/78 100 02/23/17 08:09 02/23/17 08:37 02/23/17 08:09 02/23/17 08:37 02/23/17 08:09 - Medications Medications: Current Medications Acetaminophen (Tylenol 325mg Tab) 650 mg PO Q6 PRN PRN Reason: Fever >100.4 F Allopurinol (Zyloprim) 100 mg PO DAILY [facility] Last Admin: 02/23/17 08:34 Dose: 100 mg Amlodipine Besylate (Norvasc) 10 mg PO DAILY [facility] Last Admin: 02/23/17 08:37 Dose: 10 mg Aspirin (Ecotrin) 81 mg PO DAILY [facility] Last Admin: 02/23/17 08:36 Dose: 81 mg Atorvastatin Calcium (Lipitor) 10 mg PO HS [facility] Last Admin: 02/22/17 22:00 Dose: 10 mg Docusate Sodium (Colace) 100 mg PO BID [facility] Last Admin: 02/23/17 08:35 Dose: 100 mg Ferrous Sulfate (Feosol) 325 mg PO TID [facility] Last Admin: 02/23/17 12:34 Dose: 325 mg Vancomycin HCl 500 mg/ Sodium (Chloride) 100 mls @ 100 mls/hr IVPB Q12@0500, 1700 [facility] Last Admin: 02/23/17 05:55 Dose: 100 mls/hr Ceftazidime/Avibactam 1.25 gm/ (Sodium Chloride) 100 mls @ 100 mls/hr IVPB Q8@ 0500,1300,2100 [facility] Last Admin: 02/23/17 12:33 Dose: 100 mls/hr Lactobacillus Acidophilus (Bacid Acidophilus) 1 cap PO BID [facility] Last Admin: 02/23/17 08:34 Dose: 1 cap Losartan Potassium (Cozaar) 100 mg PO DAILY [facility] Last Admin: 02/23/17 08:35 Dose: 100 mg Metoprolol Tartrate (Lopressor) 50 mg PO Q12 [facility] Last Admin: 02/23/17 08:36 Dose: 50 mg Oxycodone/Acetaminophen (Percocet 5/325 Mg Tab) 2 tab PO Q4 PRN PRN Reason: Pain, severe (8-10) Stop: 02/25/17 21:40 Last Admin: 02/22/17 21:59 Dose: 2 tab Oxycodone/Acetaminophen (Percocet 5/325 Mg Tab) 1 tab PO Q4 PRN PRN Reason: Pain, moderate (4-7) Stop: 02/25/17 21:41 Sennosides (Senokot Tab) 8.6 mg PO BID [facility] Last Admin: 02/23/17 08:34 Dose: 8.6 mg Tamsulosin HCl (Flomax) 0.4 mg PO DAILY [facility] Last Admin: 02/23/17 08:36 Dose: 0.4 mg - Labs Labs: 02/20/17 05:30 02/20/17 05:30 - Respiratory Exam Respiratory Exam: Clear to Ausculation Bilateral - Cardiovascular Exam Cardiovascular Exam: REGULAR RHYTHM, +S1, +S2 (PLASTIC SURGERY NOTE SEEN), Murmur - Additional Findings Additional findings: PLASTIC SURGERY AND ID NOTES REVIEWED Assessment and Plan - Assessment and Plan (Free Text) Assessment: S/P LEFT KNEE SURGERY MILD CAD HYPERTENSION HYPERLIPIDEMIA Plan: CONTINUE ANTIBIOTICS, LOSARTAN, AMLODIPINE, METOPROLOL, ATORVASTATIN, ASPIRIN
--- NOTE | 2017-02-23 16:14 | CP.PCM.PN ---
Subjective - Date & Time of Evaluation Date of Evaluation: 02/23/17 Time of Evaluation: 16:11 - Subjective Subjective: I D NOTE VANCOMYCIN TROUGH IS GREATER THAN 9 IN VIEW OF PAST ISSUES C INCREASING RENAL FUNCTION c VANCOMYCIN WILL GIVE 500 MG IV PB Q24H CONTINUE AVYCAZ Objective - Vital Signs/Intake and Output Vital Signs (last 24 hours): Temp Pulse Resp BP Pulse Ox 97.5 F L 69 20 143/78 100 02/23/17 08:09 02/23/17 08:37 02/23/17 08:09 02/23/17 08:37 02/23/17 08:09 - Medications Medications: Current Medications Acetaminophen (Tylenol 325mg Tab) 650 mg PO Q6 PRN PRN Reason: Fever >100.4 F Allopurinol (Zyloprim) 100 mg PO DAILY [facility] Last Admin: 02/23/17 08:34 Dose: 100 mg Amlodipine Besylate (Norvasc) 10 mg PO DAILY [facility] Last Admin: 02/23/17 08:37 Dose: 10 mg Aspirin (Ecotrin) 81 mg PO DAILY [facility] Last Admin: 02/23/17 08:36 Dose: 81 mg Atorvastatin Calcium (Lipitor) 10 mg PO HS [facility] Last Admin: 02/22/17 22:00 Dose: 10 mg Docusate Sodium (Colace) 100 mg PO BID [facility] Last Admin: 02/23/17 08:35 Dose: 100 mg Ferrous Sulfate (Feosol) 325 mg PO TID [facility] Last Admin: 02/23/17 12:34 Dose: 325 mg Ceftazidime/Avibactam 1.25 gm/ (Sodium Chloride) 100 mls @ 100 mls/hr IVPB Q8@ 0500,1300,2100 [facility] Last Admin: 02/23/17 12:33 Dose: 100 mls/hr Vancomycin HCl 500 mg/ Sodium (Chloride) 100 mls @ 100 mls/hr IVPB Q12H [facility] Lactobacillus Acidophilus (Bacid Acidophilus) 1 cap PO BID [facility] Last Admin: 02/23/17 08:34 Dose: 1 cap Losartan Potassium (Cozaar) 100 mg PO DAILY [facility] Last Admin: 02/23/17 08:35 Dose: 100 mg Metoprolol Tartrate (Lopressor) 50 mg PO Q12 [facility] Last Admin: 02/23/17 08:36 Dose: 50 mg Oxycodone/Acetaminophen (Percocet 5/325 Mg Tab) 2 tab PO Q4 PRN PRN Reason: Pain, severe (8-10) Stop: 02/25/17 21:40 Last Admin: 02/22/17 21:59 Dose: 2 tab Oxycodone/Acetaminophen (Percocet 5/325 Mg Tab) 1 tab PO Q4 PRN PRN Reason: Pain, moderate (4-7) Stop: 02/25/17 21:41 Sennosides (Senokot Tab) 8.6 mg PO BID [facility] Last Admin: 02/23/17 08:34 Dose: 8.6 mg Tamsulosin HCl (Flomax) 0.4 mg PO DAILY [facility] Last Admin: 02/23/17 08:36 Dose: 0.4 mg - Labs Labs: 02/20/17 05:30 02/20/17 05:30
[2017-02-24] MEDS: Lactobacillus Acidophilus 500 MU Cap PO SCH ×2 (08:28→17:05)
--- NOTE | 2017-02-24 09:22 | CP.PCM.PN ---
Subjective - Date & Time of Evaluation Date of Evaluation: 02/24/17 Time of Evaluation: 08:00 - Subjective Subjective: NO COMPLAINTS Objective - Vital Signs/Intake and Output Vital Signs (last 24 hours): Temp Pulse Resp BP Pulse Ox 97.2 F L 83 20 141/79 100 02/24/17 08:16 02/24/17 08:31 02/24/17 08:16 02/24/17 08:31 02/24/17 08:16 - Medications Medications: Current Medications Acetaminophen (Tylenol 325mg Tab) 650 mg PO Q6 PRN PRN Reason: Fever >100.4 F Allopurinol (Zyloprim) 100 mg PO DAILY [facility] Last Admin: 02/24/17 08:31 Dose: 100 mg Amlodipine Besylate (Norvasc) 10 mg PO DAILY [facility] Last Admin: 02/24/17 08:29 Dose: 10 mg Aspirin (Ecotrin) 81 mg PO DAILY [facility] Last Admin: 02/24/17 08:31 Dose: 81 mg Atorvastatin Calcium (Lipitor) 10 mg PO HS [facility] Last Admin: 02/23/17 22:24 Dose: 10 mg Docusate Sodium (Colace) 100 mg PO BID [facility] Last Admin: 02/24/17 08:28 Dose: 100 mg Ferrous Sulfate (Feosol) 325 mg PO TID [facility] Last Admin: 02/24/17 08:30 Dose: 325 mg Ceftazidime/Avibactam 1.25 gm/ (Sodium Chloride) 100 mls @ 100 mls/hr IVPB Q8@ 0500,1300,2100 [facility] Last Admin: 02/24/17 04:49 Dose: 100 mls/hr Vancomycin HCl 500 mg/ Sodium (Chloride) 100 mls @ 100 mls/hr IVPB Q12H [facility] Last Admin: 02/24/17 03:44 Dose: 100 mls/hr Lactobacillus Acidophilus (Bacid Acidophilus) 1 cap PO BID [facility] Last Admin: 02/24/17 08:28 Dose: 1 cap Losartan Potassium (Cozaar) 100 mg PO DAILY [facility] Last Admin: 02/24/17 08:31 Dose: 100 mg Metoprolol Tartrate (Lopressor) 50 mg PO Q12 [facility] Last Admin: 02/24/17 08:30 Dose: 50 mg Oxycodone/Acetaminophen (Percocet 5/325 Mg Tab) 2 tab PO Q4 PRN PRN Reason: Pain, severe (8-10) Stop: 02/25/17 21:40 Last Admin: 02/22/17 21:59 Dose: 2 tab Oxycodone/Acetaminophen (Percocet 5/325 Mg Tab) 1 tab PO Q4 PRN PRN Reason: Pain, moderate (4-7) Stop: 02/25/17 21:41 Sennosides (Senokot Tab) 8.6 mg PO BID [facility] Last Admin: 02/24/17 08:31 Dose: 8.6 mg Tamsulosin HCl (Flomax) 0.4 mg PO DAILY [facility] Last Admin: 02/24/17 08:31 Dose: 0.4 mg - Labs Labs: 02/20/17 05:30 02/20/17 05:30 - Respiratory Exam Respiratory Exam: Clear to Ausculation Bilateral - Cardiovascular Exam Cardiovascular Exam: REGULAR RHYTHM, +S1, +S2 Assessment and Plan - Assessment and Plan (Free Text) Assessment: S/P MULTIPLE LEFT KNEE SURGERIES MILD CAD HYPERTENSION HYPERLIPIDEMIA Plan: CONTINUE ANTIBIOTICS, ASPIRIN, LOSARTAN, AMLODIPINE, METOPROLOL AND ATORVASTATIN CONTINUE REHAB
--- NOTE | 2017-02-24 11:52 | CP.PCM.PN ---
Subjective - Date & Time of Evaluation Date of Evaluation: 02/24/17 Time of Evaluation: 11:50 - Subjective Subjective: no complaints hd stable tolerating PT well NAD Objective - Vital Signs/Intake and Output Vital Signs (last 24 hours): Temp Pulse Resp BP Pulse Ox 97.2 F L 83 20 141/79 100 02/24/17 08:16 02/24/17 08:31 02/24/17 08:16 02/24/17 08:31 02/24/17 08:16 - Medications Medications: Current Medications Acetaminophen (Tylenol 325mg Tab) 650 mg PO Q6 PRN PRN Reason: Fever >100.4 F Allopurinol (Zyloprim) 100 mg PO DAILY [facility] Last Admin: 02/24/17 08:31 Dose: 100 mg Amlodipine Besylate (Norvasc) 10 mg PO DAILY [facility] Last Admin: 02/24/17 08:29 Dose: 10 mg Aspirin (Ecotrin) 81 mg PO DAILY [facility] Last Admin: 02/24/17 08:31 Dose: 81 mg Atorvastatin Calcium (Lipitor) 10 mg PO HS [facility] Last Admin: 02/23/17 22:24 Dose: 10 mg Docusate Sodium (Colace) 100 mg PO BID [facility] Last Admin: 02/24/17 08:28 Dose: 100 mg Ferrous Sulfate (Feosol) 325 mg PO TID [facility] Last Admin: 02/24/17 08:30 Dose: 325 mg Ceftazidime/Avibactam 1.25 gm/ (Sodium Chloride) 100 mls @ 100 mls/hr IVPB Q8@ 0500,1300,2100 [facility] Last Admin: 02/24/17 04:49 Dose: 100 mls/hr Vancomycin HCl 500 mg/ Sodium (Chloride) 100 mls @ 100 mls/hr IVPB Q12H [facility] Last Admin: 02/24/17 03:44 Dose: 100 mls/hr Lactobacillus Acidophilus (Bacid Acidophilus) 1 cap PO BID [facility] Last Admin: 02/24/17 08:28 Dose: 1 cap Losartan Potassium (Cozaar) 100 mg PO DAILY [facility] Last Admin: 02/24/17 08:31 Dose: 100 mg Metoprolol Tartrate (Lopressor) 50 mg PO Q12 [facility] Last Admin: 02/24/17 08:30 Dose: 50 mg Oxycodone/Acetaminophen (Percocet 5/325 Mg Tab) 2 tab PO Q4 PRN PRN Reason: Pain, severe (8-10) Stop: 02/25/17 21:40 Last Admin: 02/22/17 21:59 Dose: 2 tab Oxycodone/Acetaminophen (Percocet 5/325 Mg Tab) 1 tab PO Q4 PRN PRN Reason: Pain, moderate (4-7) Stop: 02/25/17 21:41 Sennosides (Senokot Tab) 8.6 mg PO BID [facility] Last Admin: 02/24/17 08:31 Dose: 8.6 mg Tamsulosin HCl (Flomax) 0.4 mg PO DAILY [facility] Last Admin: 02/24/17 08:31 Dose: 0.4 mg - Labs Labs: 02/20/17 05:30 02/20/17 05:30 - Constitutional Appears: Non-toxic, No Acute Distress - Head Exam Head Exam: ATRAUMATIC, NORMOCEPHALIC - Eye Exam Eye Exam: EOMI, Normal appearance, PERRL - ENT Exam ENT Exam: Mucous Membranes Moist, Normal Oropharynx - Respiratory Exam Respiratory Exam: Clear to Ausculation Bilateral, NORMAL BREATHING PATTERN - Cardiovascular Exam Cardiovascular Exam: RRR, +S1, +S2 - GI/Abdominal Exam GI & Abdominal Exam: Soft, Normal Bowel Sounds. absent: Tenderness - Extremities Exam Extremities Exam: Normal Capillary Refill. absent: Pedal Edema - Back Exam Back Exam: absent: CVA tenderness (L), CVA tenderness (R) - Neurological Exam Neurological Exam: Alert, Awake - Psychiatric Exam Psychiatric exam: Normal Affect, Normal Mood - Skin Skin Exam: Dry, Normal Color, Warm Assessment and Plan - Assessment and Plan (Free Text) Plan: 76 yo male with history of OA, LEONARDO, HTN, HLD, Renal Insufficiency and BPH had revision of left TKR on 12/13/2016 and was discharged from TCU on 12/24/2016. The next day patient fell from his wheelchair after hitting a bump in the street causing his surgical wound on the left knee to open. He was admitted at [facility] and then later transferred to [facility] because his orthopedist work here. Dr Blake, plastic surgeon, was consulted by orthopedist, and he recommended patellar ligament repair and primary wound closure. On 01/10/17 patient underwent left patellar ligament reconstruction and wound vac placement. He was then transferred back to TCU for rehab and recuperation. On 02/17/17 patient underwent another patellar ligament repair, removal of foreign bodies and debridement and placement of wound vac. Patient tolerated procedure and now is ready to be transferred back to TCU for continuation of IV antibiotics and PT. Left Knee Wound Dehiscence 01/10/17 S/P Left Patella/Ligament Reconstruction and wound vac placement on Wound Culture + VRE and Psuedomonas 02/17/17 S/P another patellar ligament repair, removal of foreign bodies and debridement and placement of wound vac PATIENT ON AVYCAZ DISCONTINUED BACTRIM AND VANCOMYCIN CULTURES: POSITIVE FOR ACHROMOBACTER SPECIES SENSITIVE TO: TMPSMX <20 SENSITIVE TO: CEFTAZ/AVIBACTAM SENSITIVE TO: COLISITN <1 DISCONTINUED Maxipime to 2 gm IV 1x/day Vancomycin 500 mg IV q12 02/17/17 SYNOVIAL FLUID CULTURE: POSITIVE GRAM NEG RODS, culture sensitivity waiting Elevated LFTs, prior 02/10/17 abd U/S: No significant or acute findings. No gallstones. monitor Hx HTN Losartan 100 mg PO 1x/day Metoprolol 50 mg PO Q12H Norvasc 10 mg PO 1x/day Hx Acute Blood Loss Anemia STABLE Feosol 325 mg PO TID F/U CBC 02/09/17 Hx BPH Flomax 0.4 mg PO 1x/day Hx Gout Allopurinol 100 mg PO 1x/day Hx HLD Atorvastatin 10 mg PO 1x/day Hx Constipation Dulcolax 10 mg NM Daily Colace 100 mg PO 2x/day Prophylactic Measures Tylenol 650 mg PO Q6H PRN Fever and Mild Pain Lactobacillus Sennisides
[2017-02-25] MEDS: Lactobacillus Acidophilus 500 MU Cap PO SCH ×2 (09:52→18:08)
--- NOTE | 2017-02-25 12:06 | CP.PCM.PN ---
Subjective - Date & Time of Evaluation Date of Evaluation: 02/25/17 Time of Evaluation: 11:30 - Subjective Subjective: NO COMPLAINTS Objective - Vital Signs/Intake and Output Vital Signs (last 24 hours): Temp Pulse Resp BP Pulse Ox 98.2 F 78 20 162/88 H 99 02/25/17 09:48 02/25/17 09:48 02/25/17 09:48 02/25/17 09:48 02/25/17 09:48 - Medications Medications: Current Medications Acetaminophen (Tylenol 325mg Tab) 650 mg PO Q6 PRN PRN Reason: Fever >100.4 F Allopurinol (Zyloprim) 100 mg PO DAILY [facility] Last Admin: 02/25/17 09:44 Dose: 100 mg Amlodipine Besylate (Norvasc) 10 mg PO DAILY [facility] Last Admin: 02/25/17 09:44 Dose: 10 mg Aspirin (Ecotrin) 81 mg PO DAILY [facility] Last Admin: 02/25/17 09:44 Dose: 81 mg Atorvastatin Calcium (Lipitor) 10 mg PO HS [facility] Last Admin: 02/24/17 21:24 Dose: 10 mg Docusate Sodium (Colace) 100 mg PO BID [facility] Last Admin: 02/25/17 09:43 Dose: 100 mg Ferrous Sulfate (Feosol) 325 mg PO TID [facility] Last Admin: 02/25/17 09:43 Dose: 325 mg Ceftazidime/Avibactam 1.25 gm/ (Sodium Chloride) 100 mls @ 100 mls/hr IVPB Q8@ 0500,1300,2100 [facility] Last Admin: 02/25/17 04:53 Dose: 100 mls/hr Vancomycin HCl 500 mg/ Sodium (Chloride) 100 mls @ 100 mls/hr IVPB Q12H [facility] Last Admin: 02/25/17 04:50 Dose: 100 mls/hr Lactobacillus Acidophilus (Bacid Acidophilus) 1 cap PO BID [facility] Last Admin: 02/25/17 09:52 Dose: 1 cap Losartan Potassium (Cozaar) 100 mg PO DAILY [facility] Last Admin: 02/25/17 09:44 Dose: 100 mg Metoprolol Tartrate (Lopressor) 50 mg PO Q12 [facility] Last Admin: 02/25/17 09:44 Dose: 50 mg Oxycodone/Acetaminophen (Percocet 5/325 Mg Tab) 2 tab PO Q4 PRN PRN Reason: Pain, severe (8-10) Stop: 02/25/17 21:40 Last Admin: 02/22/17 21:59 Dose: 2 tab Oxycodone/Acetaminophen (Percocet 5/325 Mg Tab) 1 tab PO Q4 PRN PRN Reason: Pain, moderate (4-7) Stop: 02/25/17 21:41 Last Admin: 02/25/17 09:53 Dose: 1 tab Sennosides (Senokot Tab) 8.6 mg PO BID [facility] Last Admin: 02/25/17 09:43 Dose: 8.6 mg Tamsulosin HCl (Flomax) 0.4 mg PO DAILY [facility] Last Admin: 02/25/17 09:44 Dose: 0.4 mg - Labs Labs: 02/20/17 05:30 02/20/17 05:30 - Respiratory Exam Respiratory Exam: Clear to Ausculation Bilateral - Cardiovascular Exam Cardiovascular Exam: REGULAR RHYTHM, +S1, +S2 - Extremities Exam Additional comments: LEFT KNEE WOUND CHANGE SEEN AND THE WOUND APPEARS CLEAN AND IT IS GRANULATING WELL Assessment and Plan - Assessment and Plan (Free Text) Assessment: S/P LEFT KNEE SURGERY MILD CAD HYPERTENSION HYPERLIPIDEMIA Plan: CONTINUE AMLODIPINE, METOPROLOL, ASPIRIN, ATORVASTATIN AND ANTIBIOTICS CONTINUE PHYSICAL THERAPY
[2017-02-26] MEDS: Lactobacillus Acidophilus 500 MU Cap PO SCH ×2 (10:19→17:26)
[2017-02-27] MEDS: Lactobacillus Acidophilus 500 MU Cap PO SCH ×2 (08:56→17:08)
[2017-02-27] MEDS: Enoxaparin 40 mg Syringe SC SCH (08:57)
[2017-02-28] MEDS: Enoxaparin 40 mg Syringe SC SCH (08:18)
--- NOTE | 2017-02-28 12:56 | CP.PCM.PN ---
Subjective - Date & Time of Evaluation Date of Evaluation: 02/28/17 Time of Evaluation: 11:00 - Subjective Subjective: NO CHEST PAIN OR SOB FEELS GOOD Objective - Vital Signs/Intake and Output Vital Signs (last 24 hours): Temp Pulse Resp BP Pulse Ox 98.1 F 73 20 154/97 H 97 02/28/17 07:53 02/28/17 08:20 02/28/17 07:53 02/28/17 08:20 02/28/17 07:53 - Medications Medications: Current Medications Acetaminophen (Tylenol 325mg Tab) 650 mg PO Q6 PRN PRN Reason: Fever >100.4 F Allopurinol (Zyloprim) 100 mg PO DAILY [facility] Last Admin: 02/28/17 08:19 Dose: 100 mg Amlodipine Besylate (Norvasc) 10 mg PO DAILY [facility] Last Admin: 02/28/17 08:19 Dose: 10 mg Aspirin (Ecotrin) 81 mg PO DAILY [facility] Last Admin: 02/28/17 08:20 Dose: 81 mg Atorvastatin Calcium (Lipitor) 10 mg PO HS [facility] Last Admin: 02/27/17 21:22 Dose: 10 mg Docusate Sodium (Colace) 100 mg PO BID [facility] Last Admin: 02/28/17 08:19 Dose: 100 mg Enoxaparin Sodium (Lovenox) 40 mg SC DAILY [facility] PRN Reason: Protocol Last Admin: 02/28/17 08:18 Dose: 40 mg Ferrous Sulfate (Feosol) 325 mg PO TID [facility] Last Admin: 02/28/17 08:19 Dose: 325 mg Ceftazidime/Avibactam 1.25 gm/ (Sodium Chloride) 100 mls @ 100 mls/hr IVPB Q8@ 0500,1300,2100 [facility] Last Admin: 02/28/17 04:41 Dose: 100 mls/hr Vancomycin HCl 500 mg/ Sodium (Chloride) 100 mls @ 100 mls/hr IVPB Q12H [facility] Last Admin: 02/28/17 04:29 Dose: 100 mls/hr Lactobacillus Acidophilus (Bacid Acidophilus) 1 cap PO BID [facility] Last Admin: 02/27/17 17:08 Dose: 1 cap Losartan Potassium (Cozaar) 100 mg PO DAILY [facility] Last Admin: 02/28/17 08:20 Dose: 100 mg Metoprolol Tartrate (Lopressor) 50 mg PO Q12 [facility] Last Admin: 02/28/17 08:19 Dose: 50 mg Sennosides (Senokot Tab) 8.6 mg PO BID [facility] Last Admin: 02/28/17 08:19 Dose: 8.6 mg Tamsulosin HCl (Flomax) 0.4 mg PO DAILY [facility] Last Admin: 02/28/17 08:20 Dose: 0.4 mg - Labs Labs: 02/20/17 05:30 02/20/17 05:30 - Respiratory Exam Respiratory Exam: Clear to Ausculation Bilateral - Cardiovascular Exam Cardiovascular Exam: REGULAR RHYTHM, +S1, +S2 Assessment and Plan - Assessment and Plan (Free Text) Assessment: S/P LEFT KNEE SURGERY WITH TRAUMA AND WOUND DEHISCENCE MILD CAD HYPERTENSION HYPERLIPIDEMIA Plan: CONTINUE ANTIBIOTICS, ASPIRIN, METOPROLOL, LOSARTAN, AMLODIPINE, ATORVASTATIN
[2017-02-28] MEDS: Lactobacillus Acidophilus 500 MU Cap PO SCH ×2 (13:04→17:22)
[2017-03-01] MEDS: Lactobacillus Acidophilus 500 MU Cap PO SCH ×2 (08:56→17:25)
[2017-03-01] MEDS: Enoxaparin 40 mg Syringe SC SCH (08:57)
--- NOTE | 2017-03-01 11:00 | CP.PCM.PN ---
Subjective - Date & Time of Evaluation Date of Evaluation: 03/01/17 Time of Evaluation: 09:30 - Subjective Subjective: NO NEW COMPLAINTS Objective - Vital Signs/Intake and Output Vital Signs (last 24 hours): Temp Pulse Resp BP Pulse Ox 98.2 F 101 H 20 157/97 H 97 03/01/17 08:36 03/01/17 08:57 03/01/17 08:36 03/01/17 08:57 03/01/17 08:36 - Medications Medications: Current Medications Acetaminophen (Tylenol 325mg Tab) 650 mg PO Q6 PRN PRN Reason: Fever >100.4 F Allopurinol (Zyloprim) 100 mg PO DAILY [facility] Last Admin: 03/01/17 08:57 Dose: 100 mg Amlodipine Besylate (Norvasc) 10 mg PO DAILY [facility] Last Admin: 03/01/17 08:57 Dose: 10 mg Aspirin (Ecotrin) 81 mg PO DAILY [facility] Last Admin: 03/01/17 08:56 Dose: 81 mg Atorvastatin Calcium (Lipitor) 10 mg PO HS [facility] Last Admin: 02/28/17 21:34 Dose: 10 mg Docusate Sodium (Colace) 100 mg PO BID [facility] Last Admin: 03/01/17 08:57 Dose: 100 mg Enoxaparin Sodium (Lovenox) 40 mg SC DAILY [facility] PRN Reason: Protocol Last Admin: 03/01/17 08:57 Dose: 40 mg Ferrous Sulfate (Feosol) 325 mg PO TID [facility] Last Admin: 03/01/17 08:56 Dose: 325 mg Ceftazidime/Avibactam 1.25 gm/ (Sodium Chloride) 100 mls @ 100 mls/hr IVPB Q8@ 0500,1300,2100 [facility] Last Admin: 03/01/17 04:51 Dose: 100 mls/hr Vancomycin HCl 500 mg/ Sodium (Chloride) 100 mls @ 100 mls/hr IVPB Q12H [facility] Last Admin: 03/01/17 03:52 Dose: 100 mls/hr Lactobacillus Acidophilus (Bacid Acidophilus) 1 cap PO BID [facility] Last Admin: 03/01/17 08:56 Dose: 1 cap Losartan Potassium (Cozaar) 100 mg PO DAILY [facility] Last Admin: 03/01/17 08:57 Dose: 100 mg Metoprolol Tartrate (Lopressor) 50 mg PO Q8 [facility] Sennosides (Senokot Tab) 8.6 mg PO BID [facility] Last Admin: 03/01/17 08:56 Dose: 8.6 mg Tamsulosin HCl (Flomax) 0.4 mg PO DAILY [facility] Last Admin: 03/01/17 08:57 Dose: 0.4 mg - Labs Labs: 02/20/17 05:30 02/20/17 05:30 - Respiratory Exam Respiratory Exam: Clear to Ausculation Bilateral - Cardiovascular Exam Cardiovascular Exam: REGULAR RHYTHM, +S1, +S2 Assessment and Plan - Assessment and Plan (Free Text) Assessment: LEFT KNEE SURGERY FOLLOWED BY TRAUMA AND WOUND DEHISCENCE MILD CAD HYPERTENSION HYPERLIPIDEMIA Plan: CONTINUE ASPIRIN, METOPROLOL, AMLODIPINE, LOSARTAN AND ATORVASTATIN CONTINUE PHYSICAL THERAPY PLASTIC SURGERY TO SEE
--- NOTE | 2017-03-01 11:40 | CP.PCM.PN ---
Subjective - Date & Time of Evaluation Date of Evaluation: 03/01/17 Time of Evaluation: 11:30 - Subjective Subjective: Wound over the left knee improving. Size: 6.5 x 12 cm. Granulation tissue increasing. No clinical signs of infection. IMPRESSION: Improved. PLAN: I agree with discharge on Tuesday with wound vac care. He will be followed in the Wound Care [facility] at [facility] on Tuesdays and Fridays. I will see him the Wound Care Center on 03/15/17. Neil Blake M.D. Objective - Vital Signs/Intake and Output Vital Signs (last 24 hours): Temp Pulse Resp BP Pulse Ox 98.2 F 101 H 20 157/97 H 97 03/01/17 08:36 03/01/17 08:57 03/01/17 08:36 03/01/17 08:57 03/01/17 08:36 - Medications Medications: Current Medications Acetaminophen (Tylenol 325mg Tab) 650 mg PO Q6 PRN PRN Reason: Fever >100.4 F Allopurinol (Zyloprim) 100 mg PO DAILY [facility] Last Admin: 03/01/17 08:57 Dose: 100 mg Amlodipine Besylate (Norvasc) 10 mg PO DAILY [facility] Last Admin: 03/01/17 08:57 Dose: 10 mg Aspirin (Ecotrin) 81 mg PO DAILY [facility] Last Admin: 03/01/17 08:56 Dose: 81 mg Atorvastatin Calcium (Lipitor) 10 mg PO HS [facility] Last Admin: 02/28/17 21:34 Dose: 10 mg Docusate Sodium (Colace) 100 mg PO BID [facility] Last Admin: 03/01/17 08:57 Dose: 100 mg Enoxaparin Sodium (Lovenox) 40 mg SC DAILY [facility] PRN Reason: Protocol Last Admin: 03/01/17 08:57 Dose: 40 mg Ferrous Sulfate (Feosol) 325 mg PO TID [facility] Last Admin: 03/01/17 08:56 Dose: 325 mg Ceftazidime/Avibactam 1.25 gm/ (Sodium Chloride) 100 mls @ 100 mls/hr IVPB Q8@ 0500,1300,2100 [facility] Last Admin: 03/01/17 04:51 Dose: 100 mls/hr Vancomycin HCl 500 mg/ Sodium (Chloride) 100 mls @ 100 mls/hr IVPB Q12H [facility] Last Admin: 03/01/17 03:52 Dose: 100 mls/hr Lactobacillus Acidophilus (Bacid Acidophilus) 1 cap PO BID [facility] Last Admin: 03/01/17 08:56 Dose: 1 cap Losartan Potassium (Cozaar) 100 mg PO DAILY [facility] Last Admin: 03/01/17 08:57 Dose: 100 mg Metoprolol Tartrate (Lopressor) 50 mg PO Q8 [facility] Sennosides (Senokot Tab) 8.6 mg PO BID [facility] Last Admin: 03/01/17 08:56 Dose: 8.6 mg Tamsulosin HCl (Flomax) 0.4 mg PO DAILY [facility] Last Admin: 03/01/17 08:57 Dose: 0.4 mg - Labs Labs: 02/20/17 05:30 02/20/17 05:30
--- NOTE | 2017-03-01 14:07 | CP.PCM.PN ---
Subjective - Date & Time of Evaluation Date of Evaluation: 03/01/17 Time of Evaluation: 14:00 - Subjective Subjective: Feels fine denies any complaint no CP no SOB no abd pain knee pain controlled Objective - Vital Signs/Intake and Output Vital Signs (last 24 hours): Temp Pulse Resp BP Pulse Ox 98.2 F 101 H 20 157/97 H 97 03/01/17 08:36 03/01/17 08:57 03/01/17 08:36 03/01/17 08:57 03/01/17 08:36 - Medications Medications: Current Medications Acetaminophen (Tylenol 325mg Tab) 650 mg PO Q6 PRN PRN Reason: Fever >100.4 F Allopurinol (Zyloprim) 100 mg PO DAILY [facility] Last Admin: 03/01/17 08:57 Dose: 100 mg Amlodipine Besylate (Norvasc) 10 mg PO DAILY [facility] Last Admin: 03/01/17 08:57 Dose: 10 mg Aspirin (Ecotrin) 81 mg PO DAILY [facility] Last Admin: 03/01/17 08:56 Dose: 81 mg Atorvastatin Calcium (Lipitor) 10 mg PO HS [facility] Last Admin: 02/28/17 21:34 Dose: 10 mg Docusate Sodium (Colace) 100 mg PO BID [facility] Last Admin: 03/01/17 08:57 Dose: 100 mg Enoxaparin Sodium (Lovenox) 40 mg SC DAILY [facility] PRN Reason: Protocol Last Admin: 03/01/17 08:57 Dose: 40 mg Ferrous Sulfate (Feosol) 325 mg PO TID [facility] Last Admin: 03/01/17 12:53 Dose: 325 mg Ceftazidime/Avibactam 1.25 gm/ (Sodium Chloride) 100 mls @ 100 mls/hr IVPB Q8@ 0500,1300,2100 [facility] Last Admin: 03/01/17 12:53 Dose: 100 mls/hr Vancomycin HCl 500 mg/ Sodium (Chloride) 100 mls @ 100 mls/hr IVPB Q12H [facility] Last Admin: 03/01/17 03:52 Dose: 100 mls/hr Lactobacillus Acidophilus (Bacid Acidophilus) 1 cap PO BID [facility] Last Admin: 03/01/17 08:56 Dose: 1 cap Losartan Potassium (Cozaar) 100 mg PO DAILY [facility] Last Admin: 03/01/17 08:57 Dose: 100 mg Metoprolol Tartrate (Lopressor) 50 mg PO Q8 [facility] Sennosides (Senokot Tab) 8.6 mg PO BID [facility] Last Admin: 03/01/17 08:56 Dose: 8.6 mg Tamsulosin HCl (Flomax) 0.4 mg PO DAILY [facility] Last Admin: 03/01/17 08:57 Dose: 0.4 mg - Labs Labs: 02/20/17 05:30 02/20/17 05:30 - Constitutional Appears: No Acute Distress - Head Exam Head Exam: NORMAL INSPECTION, NORMOCEPHALIC - Eye Exam Eye Exam: EOMI, Normal appearance Pupil Exam: NORMAL ACCOMODATION - ENT Exam ENT Exam: Mucous Membranes Moist, Normal External Ear Exam - Neck Exam Neck Exam: Full ROM. absent: Meningismus - Respiratory Exam Respiratory Exam: NORMAL BREATHING PATTERN. absent: Respiratory Distress - Cardiovascular Exam Cardiovascular Exam: REGULAR RHYTHM, +S1, +S2 - Extremities Exam Extremities Exam: Normal Capillary Refill. absent: Calf Tenderness Additional comments: Left knee with dressing - Back Exam Back Exam: Full ROM. absent: CVA tenderness (L), CVA tenderness (R) - Neurological Exam Neurological Exam: Alert, Awake, CN II-XII Intact, Oriented x3 Neuro motor strength exam: Left Upper Extremity: 5, Right Upper Extremity: 5, Left Lower Extremity: 5, Right Lower Extremity: 5 - Psychiatric Exam Psychiatric exam: Normal Affect, Normal Mood - Skin Skin Exam: Dry, Normal Color, Warm Assessment and Plan - Assessment and Plan (Free Text) Assessment: 76 yo male with history of OA, LEONARDO, HTN, HLD, Renal Insufficiency and BPH had revision of left TKR on 12/13/2016 and was discharged from TCU on 12/24/2016. The next day patient fell from his wheelchair after hitting a bump in the street causing his surgical wound on the left knee to open. He was admitted at [facility] and then later transferred to [facility] because his orthopedist work here. Dr Tirado, plastic surgeon, was consulted by orthopedist, and he recommended patellar ligament repair and primary wound closure. On 01/10/17 patient underwent left patellar ligament reconstruction and wound vac placement. He was then transferred back to TCU for rehab and recuperation. On 02/17/17 patient underwent another patellar ligament repair, removal of foreign bodies and debridement and placement of wound vac. Patient tolerated procedure and was transferred back to TCU for continuation of IV antibiotics and PT. Left Knee Wound Dehiscence 01/10/17 S/P Left Patella/Ligament Reconstruction and wound vac placement on Wound Culture + VRE and Psuedomonas 02/17/17 S/P another patellar ligament repair, removal of foreign bodies and debridement and placement of wound vac Pt on AVYCAZ Off Bactrim and Vanco CULTURES: POSITIVE FOR ACHROMOBACTER SPECIES SENSITIVE TO: TMPSMX <20 SENSITIVE TO: CEFTAZ/AVIBACTAM Wound Vac in plave Plan for d/c on tuesday with Wound Vac Dr tirado Plastic following pt- will ff up him up as outpt Pt will be ff up at the Wound Care center Tuesdays and Tuesday . Appt wi Dr tirado Mar [address] Quintero - d/c IV abx on tuesday and d/c pt home on PO Bactrim Hx HTN Losartan 100 mg PO 1x/day Metoprolol 50 mg PO Q12H Norvasc 10 mg PO 1x/day Chronic Anemia Feosol 325 mg PO TID Hx BPH Flomax 0.4 mg PO 1x/day Hx Gout Allopurinol 100 mg PO 1x/day Hx HLD Atorvastatin 10 mg PO 1x/day Hx Constipation Dulcolax 10 mg [place] Daily Colace 100 mg PO 2x/day Prophylactic Measures Lovenox Lactobacillus
--- NOTE | 2017-03-01 17:51 | CP.PCM.PN ---
Subjective - Date & Time of Evaluation Date of Evaluation: 03/01/17 Time of Evaluation: 17:45 - Subjective Subjective: I D NOTE HAVE REVIEWED LABS AGAIN WILL NOT BE ABLE TO RECEIVE AVYCAZ OUTPATIENT ,WILL RECOMMEND BACTRIM DS I TAB PO BID X 4 WEEKS Objective - Vital Signs/Intake and Output Vital Signs (last 24 hours): Temp Pulse Resp BP Pulse Ox 95 F L 95 H 20 135/71 97 03/01/17 16:22 03/01/17 17:26 03/01/17 16:22 03/01/17 17:26 03/01/17 16:22 - Medications Medications: Current Medications Acetaminophen (Tylenol 325mg Tab) 650 mg PO Q6 PRN PRN Reason: Fever >100.4 F Allopurinol (Zyloprim) 100 mg PO DAILY [facility] Last Admin: 03/01/17 08:57 Dose: 100 mg Amlodipine Besylate (Norvasc) 10 mg PO DAILY [facility] Last Admin: 03/01/17 08:57 Dose: 10 mg Aspirin (Ecotrin) 81 mg PO DAILY [facility] Last Admin: 03/01/17 08:56 Dose: 81 mg Atorvastatin Calcium (Lipitor) 10 mg PO HS [facility] Last Admin: 02/28/17 21:34 Dose: 10 mg Docusate Sodium (Colace) 100 mg PO BID [facility] Last Admin: 03/01/17 17:25 Dose: 100 mg Enoxaparin Sodium (Lovenox) 40 mg SC DAILY [facility] PRN Reason: Protocol Last Admin: 03/01/17 08:57 Dose: 40 mg Ferrous Sulfate (Feosol) 325 mg PO TID [facility] Last Admin: 03/01/17 17:25 Dose: 325 mg Ceftazidime/Avibactam 1.25 gm/ (Sodium Chloride) 100 mls @ 100 mls/hr IVPB Q8@ 0500,1300,2100 [facility] Last Admin: 03/01/17 12:53 Dose: 100 mls/hr Vancomycin HCl 500 mg/ Sodium (Chloride) 100 mls @ 100 mls/hr IVPB Q12H [facility] Last Admin: 03/01/17 17:25 Dose: 100 mls/hr Lactobacillus Acidophilus (Bacid Acidophilus) 1 cap PO BID [facility] Last Admin: 03/01/17 17:25 Dose: 1 cap Losartan Potassium (Cozaar) 100 mg PO DAILY [facility] Last Admin: 03/01/17 08:57 Dose: 100 mg Metoprolol Tartrate (Lopressor) 50 mg PO Q8 [facility] Last Admin: 03/01/17 17:26 Dose: 50 mg Sennosides (Senokot Tab) 8.6 mg PO BID [facility] Last Admin: 03/01/17 17:25 Dose: 8.6 mg Tamsulosin HCl (Flomax) 0.4 mg PO DAILY [facility] Last Admin: 03/01/17 08:57 Dose: 0.4 mg - Labs Labs: 02/20/17 05:30 02/20/17 05:30
[2017-03-02 06:45] LABS: BASO % 0.8 % (0.0-2.0); EOS # 0.3 K/uL (0.0-0.7); EOS % 9.1 % (0.0-4.0); HEMATOCRIT 32.4 % (35.0-51.0); LYMPH # 1.2 K/uL (1.0-4.3); LYMPH % 35.5 % (20.0-40.0); MEAN CELL VOLUME 81.8 fl (80.0-94.0); MEAN CORPUSCULAR HGB CONC 31.8 g/dL (33.0-37.0); MEAN PLATELET VOLUME 7.7 fl (7.2-11.7); MONO # 0.8 K/uL (0.0-0.8); NEUT % 29.6 % (50.0-75.0); NRBC % 0.1 % (0.0-0.0); PLATELET COUNT 167 K/uL (130-400); RED CELL DISTRIBUTION WIDTH 16.8 % (11.5-14.5); WHITE BLOOD COUNT 3.4 K/uL (4.8-10.8)
[2017-03-02 06:55] LABS: BLOOD UREA NITROGEN 11 mg/dl (9-20); CALCIUM 9.7 mg/dL (8.4-10.2); CARBON DIOXIDE 28 mmol/L (22-30); CHLORIDE 107 mmol/L (98-107); GFR AFRICAN-AMERICAN > 60; GLUCOSE,RANDOM 82 mg/dL (75-110); POTASSIUM 3.5 MMOL/L (3.6-5.0); SODIUM 141 mmol/l (132-148)
[2017-03-02] MEDS: Lactobacillus Acidophilus 500 MU Cap PO SCH ×2 (08:50→17:05)
[2017-03-02] MEDS: Enoxaparin 40 mg Syringe SC SCH (08:50)
[2017-03-02] MEDS ORDERED: Potassium Chloride 10 mEq ER Tab PO ONE (08:52)
[2017-03-02 08:54] LABS: EOSINOPHIL 6 % (0-7); NEUTROPHIL 30 % (42-75); REACTIVE LYMPHOCYTES 1 % (0-0); TOTAL CELLS COUNTED 100
[2017-03-02 08:55] LABS: LARGE PLATELETS PRESENT
--- NOTE | 2017-03-02 13:40 | CP.PCM.PN ---
Subjective - Date & Time of Evaluation Date of Evaluation: 03/02/17 Time of Evaluation: 12:30 - Subjective Subjective: NO CHEST PAIN OR SOB Objective - Vital Signs/Intake and Output Vital Signs (last 24 hours): Temp Pulse Resp BP Pulse Ox 97.9 F 70 20 159/89 H 99 03/02/17 08:06 03/02/17 08:51 03/02/17 08:06 03/02/17 08:51 03/02/17 08:06 - Medications Medications: Current Medications Acetaminophen (Tylenol 325mg Tab) 650 mg PO Q6 PRN PRN Reason: Fever >100.4 F Allopurinol (Zyloprim) 100 mg PO DAILY [facility] Last Admin: 03/02/17 08:50 Dose: 100 mg Amlodipine Besylate (Norvasc) 10 mg PO DAILY [facility] Last Admin: 03/02/17 08:51 Dose: 10 mg Aspirin (Ecotrin) 81 mg PO DAILY [facility] Last Admin: 03/02/17 08:50 Dose: 81 mg Atorvastatin Calcium (Lipitor) 10 mg PO HS [facility] Last Admin: 03/01/17 21:12 Dose: 10 mg Docusate Sodium (Colace) 100 mg PO BID [facility] Last Admin: 03/02/17 08:50 Dose: 100 mg Enoxaparin Sodium (Lovenox) 40 mg SC DAILY [facility] PRN Reason: Protocol Last Admin: 03/02/17 08:50 Dose: 40 mg Ferrous Sulfate (Feosol) 325 mg PO TID [facility] Last Admin: 03/02/17 12:19 Dose: 325 mg Ceftazidime/Avibactam 1.25 gm/ (Sodium Chloride) 100 mls @ 100 mls/hr IVPB Q8@ 0500,1300,2100 [facility] Last Admin: 03/02/17 12:19 Dose: 100 mls/hr Vancomycin HCl 500 mg/ Sodium (Chloride) 100 mls @ 100 mls/hr IVPB Q12H [facility] Last Admin: 03/02/17 05:03 Dose: 100 mls/hr Lactobacillus Acidophilus (Bacid Acidophilus) 1 cap PO BID [facility] Last Admin: 03/02/17 08:50 Dose: 1 cap Losartan Potassium (Cozaar) 100 mg PO DAILY [facility] Last Admin: 03/02/17 08:51 Dose: 100 mg Metoprolol Tartrate (Lopressor) 50 mg PO Q8 [facility] Last Admin: 03/02/17 08:51 Dose: 50 mg Sennosides (Senokot Tab) 8.6 mg PO BID [facility] Last Admin: 03/02/17 08:50 Dose: 8.6 mg Tamsulosin HCl (Flomax) 0.4 mg PO DAILY [facility] Last Admin: 03/02/17 08:51 Dose: 0.4 mg - Labs Labs: 03/02/17 06:15 03/02/17 06:15 - Respiratory Exam Respiratory Exam: Clear to Ausculation Bilateral - Cardiovascular Exam Cardiovascular Exam: REGULAR RHYTHM, +S1, +S2 Assessment and Plan - Assessment and Plan (Free Text) Assessment: LEFT KNEE SURGERY WITH WOUND DEHISCENCE MILD CAD HYPERTENSION HYPERLIPIDEMIA Plan: CONTINUE METOPROLOL, ASPIRIN, ATORVASTATIN, AMLODIPINE, LOSARTAN AND IV ANTIBIOTICS FOR DISCHARGE TO HOME 03/04/17
[2017-03-03] MEDS: Lactobacillus Acidophilus 500 MU Cap PO SCH ×2 (09:20→16:41)
[2017-03-03] MEDS: Enoxaparin 40 mg Syringe SC SCH (09:22)
--- NOTE | 2017-03-03 10:38 | CP.PCM.PN ---
Subjective - Date & Time of Evaluation Date of Evaluation: 03/03/17 Time of Evaluation: 10:15 - Subjective Subjective: NO CHEST PAIN OR SOB NO COMPLAINTS WITH LEFT KNEE Objective - Vital Signs/Intake and Output Vital Signs (last 24 hours): Temp Pulse Resp BP Pulse Ox 97.5 F L 75 20 155/60 H 99 03/03/17 08:35 03/03/17 09:22 03/03/17 08:35 03/03/17 09:22 03/03/17 08:35 - Medications Medications: Current Medications Acetaminophen (Tylenol 325mg Tab) 650 mg PO Q6 PRN PRN Reason: Fever >100.4 F Allopurinol (Zyloprim) 100 mg PO DAILY [facility] Last Admin: 03/03/17 09:23 Dose: 100 mg Amlodipine Besylate (Norvasc) 10 mg PO DAILY [facility] Last Admin: 03/03/17 09:22 Dose: 10 mg Aspirin (Ecotrin) 81 mg PO DAILY [facility] Last Admin: 03/03/17 09:21 Dose: 81 mg Atorvastatin Calcium (Lipitor) 10 mg PO HS [facility] Last Admin: 03/02/17 21:48 Dose: 10 mg Docusate Sodium (Colace) 100 mg PO BID [facility] Last Admin: 03/03/17 09:20 Dose: 100 mg Enoxaparin Sodium (Lovenox) 40 mg SC DAILY [facility] PRN Reason: Protocol Last Admin: 03/03/17 09:22 Dose: 40 mg Ferrous Sulfate (Feosol) 325 mg PO TID [facility] Last Admin: 03/03/17 09:21 Dose: 325 mg Ceftazidime/Avibactam 1.25 gm/ (Sodium Chloride) 100 mls @ 100 mls/hr IVPB Q8@ 0500,1300,2100 [facility] Last Admin: 03/03/17 05:35 Dose: 100 mls/hr Vancomycin HCl 500 mg/ Sodium (Chloride) 100 mls @ 100 mls/hr IVPB Q12H [facility] Last Admin: 03/03/17 04:32 Dose: 100 mls/hr Lactobacillus Acidophilus (Bacid Acidophilus) 1 cap PO BID [facility] Last Admin: 03/03/17 09:20 Dose: 1 cap Losartan Potassium (Cozaar) 100 mg PO DAILY [facility] Last Admin: 03/03/17 09:20 Dose: 100 mg Metoprolol Tartrate (Lopressor) 50 mg PO Q8@0400,1200,1999 [facility] Last Admin: 03/03/17 03:55 Dose: 50 mg Sennosides (Senokot Tab) 8.6 mg PO BID [facility] Last Admin: 03/03/17 09:22 Dose: 8.6 mg Tamsulosin HCl (Flomax) 0.4 mg PO DAILY [facility] Last Admin: 03/03/17 09:21 Dose: 0.4 mg - Labs Labs: 03/02/17 06:15 03/02/17 06:15 - Respiratory Exam Respiratory Exam: Clear to Ausculation Bilateral - Cardiovascular Exam Cardiovascular Exam: REGULAR RHYTHM, +S1, +S2 Assessment and Plan - Assessment and Plan (Free Text) Assessment: S/P LEFT KNEE SURGERY WITH WOUND DEHISCENCE MILD CAD HYPERTENSION HYPERLIPIDEMIA Plan: CONTINUE METOPROLOL, LOSARTAN, AMLODIPINE, ATORVASTATIN, ASPIRIN AND ANTIBIOTICS FOR DISCHARGE TO HOME TOMORROW
--- NOTE | 2017-03-03 16:19 | CP.PCM.PN ---
Subjective - Date & Time of Evaluation Date of Evaluation: 03/03/17 Time of Evaluation: 10:00 - Subjective Subjective: Patient states that he has some minimal pain to his left knee and is requesting pain medication. He has no other complaints today. He denies any chest pain, shortness of breath, n/v/d, abdominal pain. Objective - Vital Signs/Intake and Output Vital Signs (last 24 hours): Temp Pulse Resp BP Pulse Ox 97.5 F L 72 20 139/84 99 03/03/17 08:35 03/03/17 12:57 03/03/17 08:35 03/03/17 12:57 03/03/17 08:35 - Medications Medications: Current Medications Acetaminophen (Tylenol 325mg Tab) 650 mg PO Q6 PRN PRN Reason: Fever >100.4 F Last Admin: 03/03/17 13:04 Dose: 650 mg Acetaminophen (Tylenol 325mg Tab) 650 mg PO Q6 PRN PRN Reason: Pain, Mild (1-3) Allopurinol (Zyloprim) 100 mg PO DAILY [facility] Last Admin: 03/03/17 09:23 Dose: 100 mg Amlodipine Besylate (Norvasc) 10 mg PO DAILY [facility] Last Admin: 03/03/17 09:22 Dose: 10 mg Aspirin (Ecotrin) 81 mg PO DAILY [facility] Last Admin: 03/03/17 09:21 Dose: 81 mg Atorvastatin Calcium (Lipitor) 10 mg PO HS [facility] Last Admin: 03/02/17 21:48 Dose: 10 mg Docusate Sodium (Colace) 100 mg PO BID [facility] Last Admin: 03/03/17 09:20 Dose: 100 mg Enoxaparin Sodium (Lovenox) 40 mg SC DAILY [facility] PRN Reason: Protocol Last Admin: 03/03/17 09:22 Dose: 40 mg Ferrous Sulfate (Feosol) 325 mg PO TID [facility] Last Admin: 03/03/17 12:54 Dose: 325 mg Ceftazidime/Avibactam 1.25 gm/ (Sodium Chloride) 100 mls @ 100 mls/hr IVPB Q8@ 0500,1300,2100 [facility] Last Admin: 03/03/17 12:53 Dose: 100 mls/hr Vancomycin HCl 500 mg/ Sodium (Chloride) 100 mls @ 100 mls/hr IVPB Q12H [facility] Last Admin: 03/03/17 04:32 Dose: 100 mls/hr Lactobacillus Acidophilus (Bacid Acidophilus) 1 cap PO BID [facility] Last Admin: 03/03/17 09:20 Dose: 1 cap Losartan Potassium (Cozaar) 100 mg PO DAILY [facility] Last Admin: 03/03/17 09:20 Dose: 100 mg Metoprolol Tartrate (Lopressor) 50 mg PO Q8@0400,1200,2000 [facility] Last Admin: 03/03/17 12:57 Dose: 50 mg Sennosides (Senokot Tab) 8.6 mg PO BID [facility] Last Admin: 03/03/17 09:22 Dose: 8.6 mg Tamsulosin HCl (Flomax) 0.4 mg PO DAILY [facility] Last Admin: 03/03/17 09:21 Dose: 0.4 mg - Labs Labs: 03/02/17 06:15 03/02/17 06:15 - Constitutional Appears: Well, Non-toxic, No Acute Distress - Head Exam Head Exam: ATRAUMATIC, NORMAL INSPECTION, NORMOCEPHALIC - Eye Exam Eye Exam: EOMI, Normal appearance, PERRL - ENT Exam ENT Exam: Mucous Membranes Moist, Normal Exam - Neck Exam Neck Exam: Full ROM, Normal Inspection. absent: Lymphadenopathy - Respiratory Exam Respiratory Exam: Clear to Ausculation Bilateral, NORMAL BREATHING PATTERN - Cardiovascular Exam Cardiovascular Exam: REGULAR RHYTHM, +S1, +S2. absent: Murmur - GI/Abdominal Exam GI & Abdominal Exam: Soft, Normal Bowel Sounds. absent: Tenderness - Back Exam Back Exam: NORMAL INSPECTION - Neurological Exam Neurological Exam: Alert, Awake, CN II-XII Intact, Normal Gait, Oriented x3 - Psychiatric Exam Psychiatric exam: Normal Affect, Normal Mood - Skin Skin Exam: Dry, Intact, Normal Color, Warm Assessment and Plan - Assessment and Plan (Free Text) Assessment: This is a 76 yo male with history of OA, LEONARDO, HTN, HLD, Renal Insufficiency and BPH had revision of left TKR on 12/13/2016 and was discharged from TCU on 2016. The next day patient fell from his wheelchair after hitting a bump in the street causing his surgical wound on the left knee to open. He was admitted at [facility] and then later transferred to [facility] because his orthopedist work here. Dr Tirado, plastic surgeon, was consulted by orthopedist, and he recommended patellar ligament repair and primary wound closure. On 01/10/17 patient underwent left patellar ligament reconstruction and wound vac placement. He was then transferred back to TCU for rehab and recuperation. On 02/17/17 patient underwent another patellar ligament repair, removal of foreign bodies and debridement and placement of wound vac. Patient tolerated procedure and was transferred back to TCU for continuation of IV antibiotics and PT. Code status: Full code Surrogate decision maker is his grand daughterCarmen Plan: Left Knee Wound Dehiscence 01/10/17 S/P Left Patella/Ligament Reconstruction and wound vac placement on Wound Culture + VRE and Psuedomonas 02/17/17 S/P another patellar ligament repair, removal of foreign bodies and debridement and placement of wound vac Pt on AVYCAZ Off Bactrim and Vanco was switched to Avycaz, however was switched to Ceftazidime 1.25 gm IV q 8 hours and Vancomycin 500 mg IVPB q 12 hours currently CULTURES: POSITIVE FOR ACHROMOBACTER SPECIES SENSITIVE TO: TMPSMX <20 SENSITIVE TO: CEFTAZ/AVIBACTAM Wound Vac in place Plan for d/c on tuesday with Wound Vac Dr tirado Plastic following pt- will ff up him up as outpt Pt will be ff [facility] Tuesdays and Tuesday . The patient has an appointment with Dr Tirado Mar [address] Quintero - d/c IV abx on tuesday and d/c pt home on PO Bactrim BID x 4 weeks Hx HTN Losartan 100 mg PO 1x/day Metoprolol 50 mg PO Q12H Norvasc 10 mg PO 1x/day Chronic Anemia Feosol 325 mg PO TID Gout - continue Allopurinol 100 mg po daily Hyperlipidemia - continue Lipitor 10 mg po HS Hx BPH Flomax 0.4 mg PO 1x/day Hx Constipation Dulcolax 10 mg ND Daily Colace 100 mg PO 2x/day Prophylactic Measures Lovenox Lactobacillus
[2017-03-03 20:12] VITALS: O2SAT 99
[2017-03-04 08:27] VITALS: TEMP 98.2
[2017-03-04] MEDS: Lactobacillus Acidophilus 500 MU Cap PO SCH (08:47)
[2017-03-04] MEDS: Enoxaparin 40 mg Syringe SC SCH (08:49)
--- NOTE | 2017-03-04 09:10 | CP.PCM.PN ---
Subjective - Date & Time of Evaluation Date of Evaluation: 03/04/17 Time of Evaluation: 09:10 - Subjective Subjective: NO COMPLAINTS Objective - Vital Signs/Intake and Output Vital Signs (last 24 hours): Temp Pulse Resp BP Pulse Ox 98.2 F 61 20 154/75 H 99 03/04/17 08:26 03/04/17 08:49 03/04/17 08:26 03/04/17 08:49 03/04/17 08:26 - Medications Medications: Current Medications Acetaminophen (Tylenol 325mg Tab) 650 mg PO Q6 PRN PRN Reason: Fever >100.4 F Last Admin: 03/03/17 13:04 Dose: 650 mg Acetaminophen (Tylenol 325mg Tab) 650 mg PO Q6 PRN PRN Reason: Pain, Mild (1-3) Last Admin: 03/03/17 18:40 Dose: 650 mg Allopurinol (Zyloprim) 100 mg PO DAILY [facility] Last Admin: 03/04/17 08:49 Dose: 100 mg Amlodipine Besylate (Norvasc) 10 mg PO DAILY [facility] Last Admin: 03/04/17 08:49 Dose: 10 mg Aspirin (Ecotrin) 81 mg PO DAILY [facility] Last Admin: 03/04/17 08:48 Dose: 81 mg Atorvastatin Calcium (Lipitor) 10 mg PO HS [facility] Last Admin: 03/03/17 21:25 Dose: 10 mg Docusate Sodium (Colace) 100 mg PO BID [facility] Last Admin: 03/04/17 08:47 Dose: 100 mg Enoxaparin Sodium (Lovenox) 40 mg SC DAILY [facility] PRN Reason: Protocol Last Admin: 03/04/17 08:49 Dose: 40 mg Ferrous Sulfate (Feosol) 325 mg PO TID [facility] Last Admin: 03/04/17 08:48 Dose: 325 mg Ceftazidime/Avibactam 1.25 gm/ (Sodium Chloride) 100 mls @ 100 mls/hr IVPB Q8@ 0500,1300,2100 [facility] Last Admin: 03/04/17 05:25 Dose: 100 mls/hr Vancomycin HCl 500 mg/ Sodium (Chloride) 100 mls @ 100 mls/hr IVPB Q12H [facility] Last Admin: 03/04/17 05:20 Dose: 100 mls/hr Lactobacillus Acidophilus (Bacid Acidophilus) 1 cap PO BID [facility] Last Admin: 03/04/17 08:47 Dose: 1 cap Losartan Potassium (Cozaar) 100 mg PO DAILY [facility] Last Admin: 03/04/17 08:48 Dose: 100 mg Metoprolol Tartrate (Lopressor) 50 mg PO Q8@0400,1200,2000 [facility] Last Admin: 03/04/17 05:19 Dose: 50 mg Sennosides (Senokot Tab) 8.6 mg PO BID [facility] Last Admin: 03/04/17 08:49 Dose: 8.6 mg Tamsulosin HCl (Flomax) 0.4 mg PO DAILY [facility] Last Admin: 03/04/17 08:48 Dose: 0.4 mg - Labs Labs: 03/02/17 06:15 03/02/17 06:15 - Respiratory Exam Respiratory Exam: Clear to Ausculation Bilateral - Cardiovascular Exam Cardiovascular Exam: REGULAR RHYTHM, +S1, +S2 Assessment and Plan - Assessment and Plan (Free Text) Assessment: MULTIPLE LEFT KNEE SURGERIES WITH WOUND DEHISCENCE MILD CAD HYPERTENSION HYPERLIPIDEMIA Plan: FOR DISCHARGE TO HOME TODAY CONTINUE METOPROLOL, LOSARTAN, AMLODIPINE, ATORVASTATIN, ASPIRIN ANTIBIOTICS PER DR GERMAN MESSER WITH DR NATION AND DR BUFFY MESSER WITH LOCAL MEDICAL DOCTORS
--- NOTE | 2017-03-04 10:58 | CP.PCM.DIS ---
Provider - Provider Date of Admission: 02/18/17 22:53 Attending physician: Gertrudis Barillas MD Primary care physician: Jose Elias Chan III, MD Consults: Dr Hayden Quintero Time Spent in preparation of Discharge (in minutes): 30 Diagnosis - Discharge Diagnosis (1) Postoperative wound dehiscence Status: Acute Comment: Wound Culture + VRE, Psuedomonas and Achromobacter sp. discharge on with wound vac. to follow with Dr Blake as outpatient. [facility] up [facility] Tuesdays and Fridays . discharge patient on PO Bactrim DS per ID recommendation (2) HTN (hypertension) Status: Chronic Comment: BP stable. continue Losartan, Metoprolol and Norvasc (3) Postoperative anemia due to acute blood loss Status: Acute Comment: Hgb stable. continue Feosol (4) BPH (benign prostatic hyperplasia) Status: Chronic Comment: continue [facility] Course - Lab Results Lab Results: Most Recent Lab Values WBC 3.4 K/uL (4.8-10.8) L 03/02/17 06:15 RBC 3.97 Mil/uL (4.40-5.90) L 03/02/17 06:15 Hgb 10.3 g/dL (12.0-18.0) L 03/02/17 06:15 Hct 32.4 % (35.0-51.0) L 03/02/17 06:15 MCV 81.8 fl (80.0-94.0) 03/02/17 06:15 MCH 26.0 pg (27.0-31.0) L 03/02/17 06:15 MCHC 31.8 g/dL (33.0-37.0) L 03/02/17 06:15 RDW 16.8 % (11.5-14.5) H 03/02/17 06:15 Plt Count 167 K/uL (130-400) 03/02/17 06:15 MPV 7.7 fl (7.2-11.7) 03/02/17 06:15 Neut % (Auto) 29.6 % (50.0-75.0) L 03/02/17 06:15 Lymph % (Auto) 35.5 % (20.0-40.0) 03/02/17 06:15 [place] % (Auto) 25.0 % (0.0-10.0) H 03/02/17 06:15 Eos % (Auto) 9.1 % (0.0-4.0) H 03/02/17 06:15 Baso % (Auto) 0.8 % (0.0-2.0) 03/02/17 06:15 Neut # 1.0 K/uL (1.8-7.0) L 03/02/17 06:15 Lymph # 1.2 K/uL (1.0-4.3) 03/02/17 06:15 [place] # 0.8 K/uL (0.0-0.8) 03/02/17 06:15 Eos # 0.3 K/uL (0.0-0.7) 03/02/17 06:15 Baso # 0.0 K/uL (0.0-0.2) 03/02/17 06:15 Neutrophils % (Manual) 30 % (42-75) L 03/02/17 06:15 Band Neutrophils % 1 % (0-2) 02/20/17 05:30 Lymphocytes % (Manual) 38 % (20-50) 03/02/17 06:15 Reactive Lymphs % 1 % (0-0) H 03/02/17 06:15 Monocytes % (Manual) 25 % (0-10) H 03/02/17 06:15 Eosinophils % (Manual) 6 % (0-7) 03/02/17 06:15 Platelet Estimate Normal (NORMAL) 03/02/17 06:15 Large Platelets Present 03/02/17 06:15 Giant Platelets Present 02/19/17 15:30 Hypochromasia (manual) Slight 03/02/17 06:15 Poikilocytosis (manual Slight 02/20/17 05:30 Anisocytosis (manual) Slight 03/02/17 06:15 Tear Drop Cells Slight 03/02/17 06:15 Ovalocytes Slight 03/02/17 06:15 Schistocytes Slight 03/02/17 06:15 Sodium 141 mmol/l (132-148) 03/02/17 06:15 Potassium 3.5 MMOL/L (3.6-5.0) L 03/02/17 06:15 Chloride 107 mmol/L (98-107) 03/02/17 06:15 Carbon Dioxide 28 mmol/L (22-30) 03/02/17 06:15 Anion Gap 10 (10-20) 03/02/17 06:15 BUN 11 mg/dl (9-20) 03/02/17 06:15 Creatinine 1.0 mg/dL (0.8-1.5) 03/02/17 06:15 Est GFR ( Amer) > 60 03/02/17 06:15 Est GFR (Non-Af Amer) > 60 03/02/17 06:15 Random Glucose 82 mg/dL (75-110) 03/02/17 06:15 Calcium 9.7 mg/dL (8.4-10.2) 03/02/17 06:15 Total Bilirubin 0.3 mg/dl (0.2-1.3) 02/20/17 05:30 AST 27 U/L (17-59) 02/20/17 05:30 ALT 38 U/L (21-72) 02/20/17 05:30 Alkaline Phosphatase 61 U/L (38-126) 02/20/17 05:30 Total Protein 5.7 G/DL (6.3-8.2) L 02/20/17 05:30 Albumin 2.8 g/dL (3.5-5.0) L 02/20/17 05:30 Globulin 2.9 gm/dL (2.2-3.9) 02/20/17 05:30 Albumin/Globulin Ratio 1.0 (1.0-2.1) 02/20/17 05:30 Vancomycin Trough 10.3 ug/mL (5.0-10.0) H 03/02/17 06:15 - Hospital Course Hospital Course: 76 yo male with history of OA, LEONARDO, HTN, HLD, Renal Insufficiency and BPH had revision of left TKR on 12/13/2016 and was discharged from TCU on 12/24/2016. The next day patient fell from his wheelchair causing his surgical wound on the left knee to open. Patient was admitted at [facility] and later transferred to [facility] for for further management since his orthopedist works here. Dr Blake, plastic surgeon, was consulted and he recommended patellar ligament repair with primary wound closure. IV antibiotics were restarted. On 01/10/2017, patient underwent left patellar ligament reconstruction with wound vac placement. He was later moved to TCU for PT. On 02/17/2017, patient underwent further patellar ligament repair and debridement with wound vac placement. He was moved back to TCU and continued PT and IV antibiotics. Patient did well and now is ready for discharge. Discharge Exam - Head Exam Head Exam: ATRAUMATIC, NORMAL INSPECTION, NORMOCEPHALIC - Eye Exam Eye Exam: absent: Scleral icterus - ENT Exam ENT Exam: Mucous Membranes Moist - Respiratory Exam Respiratory Exam: absent: Wheezes, Respiratory Distress - Cardiovascular Exam Cardiovascular Exam: REGULAR RHYTHM, +S1, +S2 - GI/Abdominal Exam GI & Abdominal Exam: Soft. absent: Tenderness - Rectal Exam Rectal Exam: Deferred - Extremities Exam Extremities exam: joint swelling - Neurological Exam Neurological exam: Alert, Oriented x3 - Psychiatric Exam Psychiatric exam: Normal Affect - Skin Skin Exam: Dry, Intact Discharge Plan - Discharge Medications Prescriptions: oxyCODONE/Acetaminophen [Percocet 5/325 mg Tab] 1 tab PO Q4 PRN #20 tab PRN Reason: Pain, Moderate (4-7) Sulfamethoxazole/Trimethoprim [Bactrim Ds Tablet] 1 each PO BID #56 tablet - Follow Up Plan Condition: GOOD Disposition: HOME/ ROUTINE Additional Instructions: Patient instructed to limit weight bearing on left leg to 10%. No diving, showers, excessive walking. Keep dressing clean and dry. Maintain Loren splint at all times. Wash hands frequently. DO NOT REMOVE DRESSING. First wound center visit is in [place] on March 08 at 10 AM. Arrive at 9: 30 and register. Bring insurance card and a photo ID.. Tuesday visits will be in [place] wound center and Tuesdays he will be seen in [place]. First visit on 03/11 in [place] is 9:30, arrive at 9:00 to register. Appointment with Dr. Blake on Tuesday at 10:00 in [facility] office. Then proceed to [place] for dressing application. Bring a new dressing and canister to [facility] with each visit. Referrals: Jose Elias Chan III, MD [Primary Care Provider] -
[2017-03-04 12:58] VITALS: BP 158/96; PULSE 83
== END 2017-03-04 13:00 | disposition home or self-care (01) | DRG 560 ==
LOC: H.TCU 22:53
PROVIDERS: ADMIT Internal Medicine; ATTEND Internal Medicine
PROC: F07Z9FZ Gait Training/Functional Ambulation Treatment using Assistive, Adaptive, Supportive or Protective Equipment (ICD-10-PCS; principal; 2017-02-18)
PROC: F07K6ZZ Therapeutic Exercise Treatment of Musculoskeletal System - Upper Back / Upper Extremity (ICD-10-PCS; 2017-02-18)
PROC: F07L6ZZ Therapeutic Exercise Treatment of Musculoskeletal System - Lower Back / Lower Extremity (ICD-10-PCS; 2017-02-18)
DX: Z47.89 Encounter for other orthopedic aftercare (principal); D62 Acute posthemorrhagic anemia; B96.89 Other specified bacterial agents as the cause of diseases classified elsewhere; I12.9 Hypertensive chronic kidney disease with stage 1 through stage 4 chronic kidney disease, or unspecified chronic kidney disease; Z91.19 Patient's noncompliance with other medical treatment and regimen; E78.5 Hyperlipidemia, unspecified; N18.9 Chronic kidney disease, unspecified; N40.0 Benign prostatic hyperplasia without lower urinary tract symptoms; Z96.652 Presence of left artificial knee joint; G47.33 Obstructive sleep apnea (adult) (pediatric); I25.10 Atherosclerotic heart disease of native coronary artery without angina pectoris; M10.9 Gout, unspecified; K59.00 Constipation, unspecified

== ENCOUNTER 2017-05-12 16:39 | Emergency (ER) | payer MEDICARE ==
[2017-05-12 16:47] VITALS: BP 107/75; PULSE 85; RESP 16; TEMP 96.3; O2SAT 95; BMI 31.8
--- NOTE | 2017-05-12 18:21 | ED PDOC ---
Lower Extremity Pain/Injury Time Seen by Provider: 05/12/17 17:12 Chief Complaint (Nursing): Lower Extremity Problem/Injury Chief Complaint (Provider): Lower Extremity Problem/Injury History Per: Patient History/Exam Limitations: no limitations Onset/Duration Of Symptoms: Days (x2 weeks) Current Symptoms Are (Timing): Still Present Additional Complaint(s): Nicole Rosenbaum is a 76 year old male with previous history of hypertension, anemia and hypercholesterolemia, who presents to the emergency department for left knee wound associated with swelling and discharge ongoing for 2 weeks. Denied fever or chills. Patient was evaluated at Dr. Neil Blake's office earlier this week who placed a wound vac in left knee for recurrent infections post knee replacement. He is also treated for wound care with Dr. Chan. PMD:Neil Quintero MD Against Medical Advice - AMA Patient Left Against Medical Advice: The patient declines admission to the hospital and wishes to leave the Emergency Department. This action is against my medical advice. This decision was made with informed refusal. The patient was told that admission to the hospital is necessary. Explanation of the reasons why were discussed. The risks of leaving were explained to the patient and include, but are not limited to, worsening of known or currently unknown conditions, permanent disability and from undiagnosed or untreated conditions. The patient has the capacity to make this informed decision and understands my explanation of the current medical problem and risks of leaving. The patient voluntarily accepts these risks and signed an AMA form documenting our conversation. The patient was given the opportunity to ask questions and reconsider. The patient was encouraged to return to the Emergency Department at any time for further care. Past Medical History Reviewed: Historical Data, Nursing Documentation, Vital Signs Vital Signs: Last Vital Signs Temp 96.3 F L 05/12/17 16:46 Pulse 85 05/12/17 16:46 Resp 16 05/12/17 16:46 BP 107/75 05/12/17 16:46 Pulse Ox 95 05/12/17 16:46 - Medical History PMH: Anemia, Arthritis, CAD, HTN, Hypercholesterolemia, Chronic Kidney Disease, Sleep Apnea Denies: Anxiety, HIV - Surgical History Surgical History: Denies: No Surg Hx Other surgeries: right knee replacement - Family History Family History: States: Unknown Family Hx - Social History Current smoker - smoking cessation education provided: No Ex-Smoker (has not smoked in the last 12 months): Yes Alcohol: None Drugs: Denies - Home Medications Home Medications: Ambulatory Orders Medication Instructions Recorded Tamsulosin [Flomax] 0.4 mg PO DAILY 12/13/16 Allopurinol [Zyloprim] 100 mg PO DAILY tab 12/17/16 Docusate [Colace] 100 mg PO BID cap 12/17/16 Ferrous Sulfate [Feosol] 325 mg PO TID tab 12/17/16 Atorvastatin [Lipitor] 10 mg PO HS 12/30/16 Acetaminophen [Tylenol 325mg tab] 650 mg PO Q6 PRN tab 01/05/17 Metoprolol Tartrate [Lopressor] 50 mg PO Q12 tab 01/05/17 Losartan [Cozaar] 100 mg PO DAILY tab 01/11/17 Sennosides A and B [Senokot Tab] 8.6 mg PO BID 02/17/17 amLODIPine [Norvasc] 10 mg PO DAILY 02/17/17 Aspirin [Ecotrin] 81 mg PO DAILY 02/18/17 Sulfamethoxazole/Trimethoprim 1 each PO BID #56 tablet 03/04/17 [Bactrim Ds Tablet] oxyCODONE/Acetaminophen [Percocet 1 tab PO Q4 PRN #20 tab 03/04/17 5/325 mg Tab] Sulfamethoxazole/Trimethoprim 1 each PO BID #28 tablet 05/12/17 [Bactrim Ds Tablet] - Allergies Allergies/Adverse Reactions: Allergies Allergy/AdvReac Type Severity Reaction Status Date / Time No Known Allergies Allergy Verified 12/18/16 00:41 Review of Systems ROS Statement: Except As Marked, All Systems Reviewed And Found Negative Constitutional: Negative for: Fever, Chills Musculoskeletal: Positive for: Leg Pain (left knee wound with swelling and discharge) Physical Exam - Reviewed Nursing Documentation Reviewed: Yes Vital Signs Reviewed: Yes - Physical Exam Appears: Positive for: No Acute Distress Head Exam: Positive for: ATRAUMATIC, NORMAL INSPECTION, NORMOCEPHALIC Skin: Positive for: Normal Color Eye Exam: Positive for: Normal appearance ENT: Positive for: Normal ENT Inspection Neck: Positive for: Normal Cardiovascular/Chest: Positive for: Regular Rate, Rhythm, Chest Non Tender Respiratory: Positive for: Normal Breath Sounds, Accessory Muscle Use. Negative for: Decreased Breath Sounds, Respiratory Distress Gastrointestinal/Abdominal: Positive for: Normal Exam Extremity: Positive for: Normal ROM, Tenderness (left knee), Deformity (left knee open wound with visible serosanguinous fluid; visible hardware in place), Swelling (left knee with erythema) Neurologic/Psych: Positive for: Alert, Oriented - ECG O2 Sat by Pulse Oximetry: 95 (RA) Pulse Ox Interpretation: Normal Medical Decision Making Medical Decision Making: Initial Impression: Surgical site infection; chronic wound infection Initial Plan: * BMP * CBC * ESR * Blood culture * Wound culture x4 Time: 1829 --Dr. De La Cruz and Dr. Quintero examining patient at bedside. Dr Quintero recommends bactrim PO if patients refused to stay in the hospital. Scribe Attestation: Documented by Kiley Daly, acting as a scribe for Kayode Jhaveri MD. Provider Scribe Attestation: All medical record entries made by the Scribe were at my direction and personally dictated by me. I have reviewed the chart and agree that the record accurately reflects my personal performance of the history, physical exam, medical decision making, and the department course for this patient. I have also personally directed, reviewed, and agree with the discharge instructions and disposition. Disposition - Clinical Impression Clinical Impression: Infection of left knee, Left against medical advice - Patient ED Disposition Is Patient to be Admitted: No Doctor Will See Patient In The: Office Counseled Patient/Family Regarding: Studies Performed, Diagnosis, Need For Followup - Disposition Referrals: Neil Blake MD [Family Provider] - Disposition: Against Medical Advice Disposition Time: 19:07 Condition: GOOD Additional Instructions: Follow up with Dr Blake in 2-3 days. Prescriptions: Sulfamethoxazole/Trimethoprim [Bactrim Ds Tablet] 1 each PO BID #28 tablet Instructions: Wound Infection (ED), Against Medical Advice (ED)
--- NOTE | 2017-05-13 22:38 | CON ---
DATE: 05/13/2017 HISTORY OF PRESENT ILLNESS: Nicole Rosenbaum is a 76-year-old male who I have been following for an open wound and a total knee replacement as an outpatient. He comes in to the emergency room today because of a cellulitis of the left knee. Dr. Quintero and I both examined him in the emergency room. Physical examination demonstrated cellulitic left knee and multiple wound cultures were taken. He was found to be afebrile and his white count was 7.1; however, there was noted to be an exudative discharge coming from the wound. His past cultures grew Pseudomonas and vancomycin resistant Enterococcus. Dr. Quintero and I felt that the knee prosthesis needed to be removed and he should be on IV antibiotics. Mr. Rosenbaum do not wish to be admitted to the hospital and will be making a followup appointment with Dr. Chan for evaluation of the prosthesis. I will follow up with him in my office following his visit with Dr. Dr. Chan. Dr. Quintero placed him on Bactrim as his discharge antibiotic. Neil Blake MD
== END 2017-05-12 19:16 | disposition left against medical advice (07) ==
LOC: H.ER 16:39
DX: T81.4XXA Infection following a procedure, initial encounter (principal); E78.00 Pure hypercholesterolemia, unspecified; I12.9 Hypertensive chronic kidney disease with stage 1 through stage 4 chronic kidney disease, or unspecified chronic kidney disease; Z96.651 Presence of right artificial knee joint; L03.116 Cellulitis of left lower limb

== ENCOUNTER 2017-07-25 16:02 | Inpatient (IN) | payer MEDICARE ==
[2017-07-25 16:02] VITALS: BMI 31.8
--- NOTE | 2017-07-25 16:55 | ED PDOC ---
Lower Extremity Pain/Injury Time Seen by Provider: 07/25/17 16:42 Chief Complaint (Nursing): Lower Extremity Problem/Injury History Per: Patient Onset/Duration Of Symptoms: Days (2) Current Symptoms Are (Timing): Still Present Severity: Moderate Additional Complaint(s): Chronic wound left knee s/p left knee replacement . Pt states felt like knee "popped" out of place 2 days ago and has been that way since then. Being followed by plastics for wound care. Has been using wound vac until yesterday. Denies fever. Past Medical History Vital Signs: Last Vital Signs Temp 98.5 F 07/25/17 16:34 Pulse 93 H 07/25/17 16:34 Resp 20 07/25/17 16:34 BP 102/64 07/25/17 16:34 Pulse Ox 100 07/25/17 16:34 - Medical History PMH: Anemia, Arthritis, CAD, HTN, Hypercholesterolemia, Chronic Kidney Disease, Sleep Apnea Denies: Anxiety, HIV - Surgical History Other surgeries: s/p left knee replcement - Family History Family History: States: Unknown Family Hx - Home Medications Home Medications: Ambulatory Orders Medication Instructions Recorded Amlodipine Besylate/Benazepril 10 - 20 mg PO DAILY 07/25/17 [Amlodipine-Benazepril 2.5-10] Atorvastatin [Lipitor] 10 mg PO DAILY 07/25/17 Clopidogrel [Plavix] 75 mg PO DAILY 07/25/17 Hydrochlorothiazide [Microzide] 25 mg PO DAILY 07/25/17 Metoprolol Succinate [Toprol Xl] 100 mg PO DAILY 07/25/17 Sulfamethoxazole/Trimethoprim 1 tab PO BID 07/25/17 [Sulfamethoxazole-Tmp Ss Tablet] Tamsulosin HCl [Flomax] 0.4 mg PO DAILY 07/25/17 - Allergies Allergies/Adverse Reactions: Allergies Allergy/AdvReac Type Severity Reaction Status Date / Time No Known Allergies Allergy Verified 12/18/16 00:41 Review of Systems Constitutional: Negative for: Fever Musculoskeletal: Positive for: Other (knee pain) Physical Exam - Physical Exam Appears: Positive for: Non-toxic, No Acute Distress Pulses-Post. Tibialis (L): 1+ Pulses-Post. Tibialis (R): 1+ Extremity: Positive for: Other (Left knee open wound with prosthesis protruding. Granulation tissue inferior pole. No drainage or surrounding erythema) - Laboratory Results Result Diagrams: 07/25/17 17:16 07/25/17 17:16 - ECG O2 Sat by Pulse Oximetry: 100 Disposition - Clinical Impression Clinical Impression: Dislocation of left knee, Chronic wound of extremity - Patient ED Disposition Is Patient to be Admitted: Yes - Disposition Disposition Time: 19:29 Condition: FAIR Forms: [facility] (Vietnamese) - Pt Status Changed To: Hospital Disposition Of: Observation - POA Present On Arrival: None
[2017-07-25 17:21] LABS: BASO # 0.1 K/uL (0.0-0.2); BASO % 0.9 % (0.0-2.0); EOS # 0.2 K/uL (0.0-0.7); EOS % 2.9 % (0.0-4.0); HEMOGLOBIN 9.5 g/dL (12.0-18.0); LYMPH % 15.2 % (20.0-40.0); MEAN CELL VOLUME 77.3 fl (80.0-94.0); MEAN CORPUSCULAR HEMOGLOBIN 23.8 pg (27.0-31.0); MEAN CORPUSCULAR HGB CONC 30.9 g/dL (33.0-37.0); MEAN PLATELET VOLUME 7.7 fl (7.2-11.7); MONO # 0.9 K/uL (0.0-0.8); MONO % 13.9 % (0.0-10.0); NEUT # 4.6 K/uL (1.8-7.0); NEUT % 67.1 % (50.0-75.0); NRBC % 0.1 % (0.0-0.0); RBC 3.97 Mil/uL (4.40-5.90); RED CELL DISTRIBUTION WIDTH 18.2 % (11.5-14.5); WHITE BLOOD COUNT 6.8 K/uL (4.8-10.8)
[2017-07-25 17:32] LABS: ALB/GLOB RATIO 0.9 (1.0-2.1); ALBUMIN 3.4 g/dL (3.5-5.0)
--- NOTE | 2017-07-25 17:59 | RAD ---
PROCEDURE: Left Knee Radiographs. HISTORY: Send posttraumatic pain/dislocation COMPARISON: 02/17/2017, postoperative views left knee FINDINGS: BONES: No acute fracture. JOINTS: Dislocated prosthesis. No visible hardware failure. JOINT EFFUSION: None. OTHER FINDINGS: Soft tissue swellingattests to the acuity of the process. IMPRESSION: Acute dislocation left knee.
--- NOTE | 2017-07-25 20:28 | CP.PCM.HP ---
History of Present Illness - History of Present Illness History of Present Illness: 76 yo male with history of HTN, OA, Renal Insufficiency and BPH was discharged on 03/04/2017 after patellar ligament repair and debridement of left knee, post revision of TKR and sent home with open wound with intent of primary wound closure by Dr Blake, plastic surgeon. Wound vac was placed and changed 3 times a week by Dr Blake. In spite of open wound, patient was able to ambulate with a walker until 10 days ago when he was confined at [facility] because of Influenza. Patient stayed in the hospital for 8 days, during which time wound vac was changed 3 times by a physician there. He claimed that during the procedure his prosthesis was dislocated. He was advised transfer to rehab but he refused. He was discharged 3 days ago and has not been able to ambulate even with a walker. Denied fever or chills. Present on Admission - Present on Admission Any Indicators Present on Admission: No History of DVT/PE: No History of Uncontrolled Diabetes: No Urinary Catheter: No Decubitus Ulcer Present: No Review of Systems - Review of Systems All systems: reviewed and no additional remarkable complaints except (aside from those mentioned above, 12 point system review were negative by me) Past Patient History - Infectious Disease Hx of Infectious Diseases: VRE - Tetanus Immunizations Tetanus Immunization: Unknown - Past Medical History & Family History Past Medical History?: Yes - Past Social History Smoking Status: Former Smoker Alcohol: None Drugs: Denies Home Situation {Lives}: With Family - CARDIAC Hx Hypercholesterolemia: Yes Hx Hypertension: Yes - PULMONARY Hx Sleep Apnea: Yes - NEUROLOGICAL Hx Neurological Disorder: No - HEENT Hx HEENT Problems: Yes Other/Comment: wears glasses - RENAL Hx Chronic Kidney Disease: Yes - ENDOCRINE/METABOLIC Hx Endocrine Disorders: No - HEMATOLOGICAL/ONCOLOGICAL Hx Anemia: Yes Hx Human Immunodeficiency Virus (HIV): No - INTEGUMENTARY Hx Dermatological Problems: No - MUSCULOSKELETAL/RHEUMATOLOGICAL Hx Arthritis: Yes - GASTROINTESTINAL Hx Gastrointestinal Disorders: No - GENITOURINARY/GYNECOLOGICAL Hx Genitourinary Disorders: Yes Hx Prostate Problems: Yes - PSYCHIATRIC Hx Anxiety: No - SURGICAL HISTORY Hx Surgeries: Yes Hx Joint Replacement: Yes (TOTAL LEFT KNEE REPLACEMENT X 2) Other/Comment: LASER PROSTATE SX. 12/13/16 s/p left tkr revision. 01/10/17 Application of prevena L knee, prostate sx - ANESTHESIA Hx Anesthesia: Yes Hx Anesthesia Reactions: No Hx Malignant Hyperthermia: No Meds Allergies/Adverse Reactions: Allergies Allergy/AdvReac Type Severity Reaction Status Date / Time No Known Allergies Allergy Verified 12/18/16 00:41 Physical Exam - Constitutional Appears: No Acute Distress - Head Exam Head Exam: ATRAUMATIC - Eye Exam Eye Exam: absent: Scleral icterus - ENT Exam ENT Exam: Mucous Membranes Moist - Neck Exam Neck exam: Negative for: Meningismus - Respiratory Exam Respiratory Exam: absent: Rhonchi, Wheezes, Respiratory Distress - Cardiovascular Exam Cardiovascular Exam: REGULAR RHYTHM, +S1, +S2 - GI/Abdominal Exam GI & Abdominal Exam: Soft. absent: Tenderness - Rectal Exam Rectal Exam: Deferred - Extremities Exam Extremities exam: Negative for: full ROM (wound dehiscence left knee) - Neurological Exam Neurological exam: Alert, Oriented x3 - Psychiatric Exam Psychiatric exam: Normal Affect - Skin Skin Exam: Dry, Intact Results - Vital Signs Recent Vital Signs: Last Vital Signs Temp 98.5 F 07/25/17 16:34 Pulse 93 H 07/25/17 16:34 Resp 20 07/25/17 16:34 BP 102/64 07/25/17 16:34 Pulse Ox 100 07/25/17 19:29 - Labs Result Diagrams: 07/25/17 17:16 07/25/17 17:16 Labs: Laboratory Results - last 24 hr 07/25/17 07/25/17 17:16 17:16 WBC 6.8 D RBC 3.97 L Hgb 9.5 L Hct 30.7 L MCV 77.3 L D MCH 23.8 L MCHC 30.9 L RDW 18.2 H Plt Count 247 MPV 7.7 Neut % (Auto) 67.1 Lymph % (Auto) 15.2 L [place] % (Auto) 13.9 H Eos % (Auto) 2.9 Baso % (Auto) 0.9 Neut # 4.6 Lymph # 1.0 [place] # 0.9 H Eos # 0.2 Baso # 0.1 Sodium 139 Potassium 4.5 Chloride 104 Carbon Dioxide 25 Anion Gap 15 BUN 29 H Creatinine 2.1 H Est GFR ( Amer) 37 Est GFR (Non-Af Amer) 31 Random Glucose 94 Calcium 10.0 Total Bilirubin 0.5 AST 26 ALT 24 Alkaline Phosphatase 58 Total Protein 7.1 Albumin 3.4 L D Globulin 3.7 Albumin/Globulin Ratio 0.9 L Assessment & Plan - Assessment and Plan (Free Text) Assessment: 76 yo male with history of HTN, OA, Renal Insufficiency and BPH was discharged on 03/04/2017 after patellar ligament repair and debridement of left knee, post revision of TKR and sent home with open wound with intent of primary wound closure by Dr Blake, plastic surgeon. Wound vac was placed and changed 3 times a week by Dr Blake. In spite of open wound, patient was able to ambulate with a walker until 10 days ago when he was confined at [facility] because of Influenza. Patient stayed in the hospital for 8 days, during which time wound vac was changed 3 times by a physician there. He claimed that during the procedure his prosthesis was dislocated. He was advised transfer to rehab but he refused. He was discharged 3 days ago and has not been able to ambulate even with a walker. 1. Dislocated Left Knee Prosthesis for possible surgery tomorrow pending on cardiac clearance by Dr Herrera NPO from midnight 2. Postoperative Wound Dehiscence reconsult Dr Blake for primary wound closure 3. HTN BP stable continue Metoprolol 4. Renal Insufficiency DC HCTZ IV hydration with NSS 100cc/hr repeat BMP in am
--- NOTE | 2017-07-25 20:32 | CT ---
EXAM: CT Left Lower Extremity Without Intravenous Contrast, Knee CLINICAL HISTORY: 76 years old, male; Pain; Knee; Left; Prior surgery; Surgery date: 6+ months; Surgery type: Left knee replacement 2 days ago pat felt like knee popped; Additional info: Dislocated prosthesis TECHNIQUE: Axial computed tomography images of the left knee without intravenous contrast. All CT scans at this facility use one or more dose reduction techniques, viz.: automated exposure control; ma/kV adjustment per patient size (including targeted exams where dose is matched to indication; i.e. head); or iterative reconstruction technique. Sagittal reformatted images were created and reviewed. COMPARISON: CR - KNEE 3 VIEWS LT 2017-07-25 17:02 FINDINGS: Limitations: Streak artifact - moderate. Bones/joints: Total knee arthroplasty with longstem femoral and longstem tibial components with patellar resurfacing component. Several screws/anchors within proximal tibia. No definite periprosthetic fractures. Dislocation of prosthesis at femoral-tibial articulation. Small joint effusion. Soft tissues: Large anterior soft tissue defect extending to joint space. Scattered areas of heterotopic ossification. Vasculature: Mild atherosclerotic disease. IMPRESSION: 1. Dislocation of prosthesis. 2. Incidental/non-acute findings are described above.
[2017-07-25] MEDS: Sodium Chloride 0.9% 1,000 ML IV SCH (21:09)
[2017-07-25] MEDS: Tmp-Smz 400 mg-80 mg SS Tab PO SCH (21:31)
[2017-07-26 06:47] LABS: CALCIUM 9.7 mg/dL (8.4-10.2)
[2017-07-26 06:53] LABS: BASO % 0.6 % (0.0-2.0); EOS # 0.3 K/uL (0.0-0.7); EOS % 5.4 % (0.0-4.0); HEMOGLOBIN 8.7 g/dL (12.0-18.0); LYMPH % 19.6 % (20.0-40.0); MEAN CORPUSCULAR HEMOGLOBIN 24.8 pg (27.0-31.0); MEAN CORPUSCULAR HGB CONC 32.7 g/dL (33.0-37.0); MEAN PLATELET VOLUME 7.7 fl (7.2-11.7); MONO # 0.8 K/uL (0.0-0.8); MONO % 15.2 % (0.0-10.0); NEUT # 3.1 K/uL (1.8-7.0); NEUT % 59.2 % (50.0-75.0); RBC 3.51 Mil/uL (4.40-5.90); RED CELL DISTRIBUTION WIDTH 18.1 % (11.5-14.5); WHITE BLOOD COUNT 5.2 K/uL (4.8-10.8)
[2017-07-26] MEDS: Sodium Chloride 0.9% 1,000 ML IV SCH ×2 (06:53→16:21)
[2017-07-26 07:06] LABS: INR 1.1 (0.9-1.2); PARTIAL THROMBOPLASTIN TIME 29.2 Seconds (25.6-37.1); PROTHROMBIN TIME 12.6 Seconds (9.8-13.1)
--- NOTE | 2017-07-26 08:35 | CP.PCM.CON ---
History of Present Illness - History of Present Illness History of Present Illness: ID: 76 yo male CC: Dislocated L THR HPI- pt well known to my practice, poorly compliant since successful complex revision TKR/ pt admitted to [facility] approx 8 days ago. R knee wound was managed by house staff, and in dressing or undressing wound, dislocated pts TKR This hx is from the pt. Pt presents on plavix with dislocated TKR Past Patient History - Infectious Disease Hx of Infectious Diseases: VRE - Tetanus Immunizations Tetanus Immunization: Unknown - Past Medical History & Family History Past Medical History?: Yes - Past Social History Smoking Status: Former Smoker - CARDIAC Hx Cardiac Disorders: Yes Hx Hypercholesterolemia: Yes Hx Hypertension: Yes - PULMONARY Hx Respiratory Disorders: Yes Hx Sleep Apnea: Yes - NEUROLOGICAL Hx Neurological Disorder: Yes - HEENT Hx HEENT Problems: Yes Other/Comment: wears glasses - RENAL Hx Chronic Kidney Disease: Yes - ENDOCRINE/METABOLIC Hx Endocrine Disorders: No Hx Adrenal Cancer: No Hx Diabetes Insipidus: No Hx Diabetes Mellitus Type 1: No Hx Diabetes Mellitus Type 2: No Hx Hyperthyroidism: No Hx Hypothyroidism: No Hx Systemic Lupus Erythematosus: No - HEMATOLOGICAL/ONCOLOGICAL Hx Blood Disorders: Yes Hx Anemia: Yes - INTEGUMENTARY Hx Dermatological Problems: No - MUSCULOSKELETAL/RHEUMATOLOGICAL Hx Musculoskeletal Disorders: Yes Hx Arthritis: Yes Hx Falls: Yes - GASTROINTESTINAL Hx Gastrointestinal Disorders: No - GENITOURINARY/GYNECOLOGICAL Hx Genitourinary Disorders: Yes Hx Prostate Problems: Yes - PSYCHIATRIC Hx Anxiety: No Hx Substance Use: No - SURGICAL HISTORY Hx Surgeries: Yes Hx Joint Replacement: Yes (TOTAL LEFT KNEE REPLACEMENT X 2) Other/Comment: LASER PROSTATE SX. 12/13/16 s/p left tkr revision. 01/10/17 Application of prevena L knee, prostate sx. pt has had recent vascular intervention at [facility] in [place], when he was admitted for "flu" - ANESTHESIA Hx Anesthesia: Yes Hx Anesthesia Reactions: No Hx Malignant Hyperthermia: No Meds Allergies/Adverse Reactions: Allergies Allergy/AdvReac Type Severity Reaction Status Date / Time No Known Allergies Allergy Verified 12/18/16 00:41 - Medications Medications: Current Medications Atorvastatin Calcium (Lipitor) 10 mg PO DAILY CECILIO Docusate Sodium (Colace) 100 mg PO BID CECILIO Sodium Chloride (Sodium Chloride 0.9%) 1,000 mls @ 100 mls/hr IV .Q10H CECILIO Stop: 07/26/17 20:38 Last Admin: 07/26/17 06:53 Dose: Not Given Influenza Virus Vaccine (Afluria (Pf)(18yr & Older)) 0.5 ml IM .ONCE ONE Stop: 07/26/17 09:01 Metoprolol Succinate (Toprol Xl) 100 mg PO DAILY [facility] Pantoprazole Sodium (Protonix Ec Tab) 40 mg PO DAILY [facility] Tamsulosin HCl (Flomax) 0.4 mg PO DAILY [facility] Trimethoprim/Sulfamethoxazole (Bactrim Ss Tab) 1 tab PO BID [facility] Last Admin: 07/25/17 21:31 Dose: 1 tab Physical Exam - Neck Exam Additional comments: Systemic- as per hospital;ist [place] stance/gait- dferred pt with dislocated L TKR N/V intact wound granulating being managed by DR Thaddeus Blake Results - Vital Signs Recent Vital Signs: Last Vital Signs Temp 98 F 07/26/17 08:20 Pulse 52 L 07/26/17 08:20 Resp 18 07/26/17 08:20 BP 123/69 07/26/17 08:20 Pulse Ox 99 07/26/17 08:20 - Labs Result Diagrams: 07/26/17 05:15 07/26/17 05:15 Labs: Laboratory Results - last 24 hr 07/25/17 07/25/17 07/26/17 17:16 17:16 05:15 WBC 6.8 D 5.2 RBC 3.97 L 3.51 L Hgb 9.5 L 8.7 L Hct 30.7 L 26.7 L MCV 77.3 L D 76.0 L MCH 23.8 L 24.8 L MCHC 30.9 L 32.7 L RDW 18.2 H 18.1 H Plt Count 247 213 MPV 7.7 7.7 Neut % (Auto) 67.1 59.2 Lymph % (Auto) 15.2 L 19.6 L [place] % (Auto) 13.9 H 15.2 H Eos % (Auto) 2.9 5.4 H Baso % (Auto) 0.9 0.6 Neut # 4.6 3.1 Lymph # 1.0 1.0 [place] # 0.9 H 0.8 Eos # 0.2 0.3 Baso # 0.1 0.0 PT INR APTT Sodium 139 Potassium 4.5 Chloride 104 Carbon Dioxide 25 Anion Gap 15 BUN 29 H Creatinine 2.1 H Est GFR ( Amer) 37 Est GFR (Non-Af Amer) 31 Random Glucose 94 Calcium 10.0 Total Bilirubin 0.5 AST 26 ALT 24 Alkaline Phosphatase 58 Total Protein 7.1 Albumin 3.4 L D Globulin 3.7 Albumin/Globulin Ratio 0.9 L 07/26/17 07/26/17 05:15 06:25 WBC RBC Hgb Hct MCV MCH MCHC RDW Plt Count MPV Neut % (Auto) Lymph % (Auto) [place] % (Auto) Eos % (Auto) Baso % (Auto) Neut # Lymph # [place] # Eos # Baso # PT 12.6 INR 1.1 APTT 29.2 Sodium 141 Potassium 4.1 Chloride 109 H Carbon Dioxide 26 Anion Gap 10 BUN 29 H Creatinine 2.0 H Est GFR ( Amer) 39 Est GFR (Non-Af Amer) 33 Random Glucose 82 Calcium 9.7 Total Bilirubin AST ALT Alkaline Phosphatase Total Protein Albumin Globulin Albumin/Globulin Ratio - Impressions Impression: Xray/CT- dislocated constraioned L TKR bone graft to tibia has consolidated Assessment & Plan - Assessment and Plan (Free Text) Assessment: A- dislocated TKR with wound managembnt issue, being managed by plastics no evidence fopr DEEP sepsis P- Dr Blake/ DR Herrera on consult pt currently on plavix so no operative intervention possible now- will attempt closed reduction when cleared and evaluated by Dr Thaddeus Blake (plastics)
[2017-07-26] MEDS ORDERED: Influenza Vaccine 18yr & older 0.5 ML/45 MCG SYR IM ONE (09:00)
[2017-07-26] MEDS: Tmp-Smz 400 mg-80 mg SS Tab PO SCH ×2 (09:40→16:18)
[2017-07-26] MEDS: Metoprolol Succinate 100 mg XL Tab PO SCH (09:41)
[2017-07-26] MEDS: Pantoprazole 40 mg EC Tab PO SCH (09:41)
--- NOTE | 2017-07-26 10:44 | CP.PCM.PN ---
<Devin Umanzor - Last Filed: 07/26/17 16:19> Subjective - Date & Time of Evaluation Date of Evaluation: 07/26/17 Time of Evaluation: 09:15 - Subjective Subjective: 76 year old male patient with PMHx of HTN, OA, Renal Insufficiency and BPH was seen and evaluated at bedside for left knee open wound. Patient is AAOx3 and is in NAD. Patient denies of any acute events overnight. Patient denies of having any recent F/N/V/C/SOB/CP/headache/diarrhea. Denies of having any new complains at this time. Objective - Vital Signs/Intake and Output Vital Signs (last 24 hours): Temp Pulse Resp BP Pulse Ox 98 F 52 L 18 123/69 99 07/26/17 08:20 07/26/17 08:20 07/26/17 08:20 07/26/17 08:20 07/26/17 08:20 - Medications Medications: Current Medications Atorvastatin Calcium (Lipitor) 10 mg PO DAILY [facility] Last Admin: 07/26/17 09:41 Dose: 10 mg Docusate Sodium (Colace) 100 mg PO BID [facility] Last Admin: 07/26/17 09:40 Dose: 100 mg Sodium Chloride (Sodium Chloride 0.9%) 1,000 mls @ 100 mls/hr IV .Q10H [facility] Stop: 07/26/17 20:38 Last Admin: 07/26/17 06:53 Dose: Not Given Metoprolol Succinate (Toprol Xl) 100 mg PO DAILY [facility] Last Admin: 07/26/17 09:41 Dose: 100 mg Pantoprazole Sodium (Protonix Ec Tab) 40 mg PO DAILY [facility] Last Admin: 07/26/17 09:41 Dose: 40 mg Tamsulosin HCl (Flomax) 0.4 mg PO DAILY [facility] Last Admin: 07/26/17 09:41 Dose: 0.4 mg Trimethoprim/Sulfamethoxazole (Bactrim Ss Tab) 1 tab PO BID [facility] Last Admin: 07/26/17 09:40 Dose: 1 tab - Labs Labs: 07/26/17 05:15 07/26/17 05:15 PT 12.6 Seconds (9.8-13.1) 07/26/17 06:25 INR 1.1 (0.9-1.2) 07/26/17 06:25 APTT 29.2 Seconds (25.6-37.1) 07/26/17 06:25 - Constitutional Appears: Well - Head Exam Head Exam: ATRAUMATIC - Eye Exam Eye Exam: Normal appearance - ENT Exam ENT Exam: Normal Exam - Neck Exam Neck Exam: Full ROM, Normal Inspection - Respiratory Exam Respiratory Exam: Clear to Ausculation Bilateral, NORMAL BREATHING PATTERN. absent: Rales, Rhonchi, Wheezes - Cardiovascular Exam Cardiovascular Exam: REGULAR RHYTHM, +S1, +S2 - GI/Abdominal Exam GI & Abdominal Exam: Soft, Normal Bowel Sounds - Rectal Exam Rectal Exam: Deferred - Extremities Exam Extremities Exam: Normal Capillary Refill, Normal Inspection, Tenderness. absent: Calf Tenderness Additional comments: Left knee dressing is clean, dry and intact with no strike through - Back Exam Back Exam: Full ROM, NORMAL INSPECTION - Neurological Exam Neurological Exam: Alert, Awake, Oriented x3 - Psychiatric Exam Psychiatric exam: Normal Affect, Normal Mood - Skin Skin Exam: Intact, Normal Color, Warm Assessment and Plan - Assessment and Plan (Free Text) Assessment: 76 year old male patient with PMHx of HTN, OA, Renal Insufficiency and BPH was evaluated for left knee wound dehiscence s/p knee surgery. Plan: 1). Dislocated Left Knee Prosthesis - Orthopedic consult - Dr. Chan - Recommendations appreciated - Cardiology Consult - Recommendations appreciated - Patient is cleared for surgery 2). Postoperative Wound Dehiscence - re-consult Dr Blake for primary wound closure 3). Renal Insufficiency - DC HCTZ - IV hydration with NSS 100cc/hr - repeat BMP in am 4). HTN - BP stable - continue Metoprolol 5). Hyperlipidemia - Atorvastatin 10 mg 6). BPH - Tamsulosin qd <Cj Castillo - Last Filed: 07/26/17 16:28> Objective - Vital Signs/Intake and Output Vital Signs (last 24 hours): Temp Pulse Resp BP Pulse Ox 97.1 F L 60 19 114/65 98 07/26/17 15:49 07/26/17 15:49 07/26/17 15:49 07/26/17 15:49 07/26/17 15:49 - Medications Medications: Current Medications Atorvastatin Calcium (Lipitor) 10 mg PO DAILY [facility] Last Admin: 07/26/17 09:41 Dose: 10 mg Docusate Sodium (Colace) 100 mg PO BID [facility] Last Admin: 07/26/17 16:20 Dose: 100 mg Sodium Chloride (Sodium Chloride 0.9%) 1,000 mls @ 100 mls/hr IV .Q10H [facility] Stop: 07/26/17 20:38 Last Admin: 07/26/17 16:21 Dose: 100 mls/hr Metoprolol Succinate (Toprol Xl) 100 mg PO DAILY [facility] Last Admin: 07/26/17 09:41 Dose: 100 mg Pantoprazole Sodium (Protonix Ec Tab) 40 mg PO DAILY [facility] Last Admin: 07/26/17 09:41 Dose: 40 mg Tamsulosin HCl (Flomax) 0.4 mg PO DAILY [facility] Last Admin: 07/26/17 09:41 Dose: 0.4 mg Trimethoprim/Sulfamethoxazole (Bactrim Ss Tab) 1 tab PO BID [facility] Last Admin: 07/26/17 16:18 Dose: 1 tab - Labs Labs: 07/26/17 05:15 07/26/17 05:15 PT 12.6 Seconds (9.8-13.1) 07/26/17 06:25 INR 1.1 (0.9-1.2) 07/26/17 06:25 APTT 29.2 Seconds (25.6-37.1) 07/26/17 06:25
--- NOTE | 2017-07-26 11:22 | CP.PCM.CON ---
History of Present Illness - History of Present Illness History of Present Illness: THE PATIENT IS A 76 YEAR OLD MALE WHO I KNOW FROM [facility] ADMISSIONS LAST YEAR. HE HAD A LEFT TKR LAST NOVEMBER AND SINCE THEN UNDERWENT SURGERIES FOR WOUND DEHISCENSE AND ALSO FOR PATELLA LIGAMENT REPAIR. HE HAD [facility] ADMISSION FOR IV ANTIBIOTICS AND WAS SEEN BY DR BAER ON PLASTIC SURGERY EVALUATION AND IT WAS DECIDED TO LET THE OPEN WOUND HEAL BY GRANULATION AND THAT HE WOULD EVENTUALLY NEED A FLAP. HE WAS ADMITTED TO [facility] RECENTLY FOR THE FLU AND THE LEFT KNEE WAS DISLOCATED AND HE WAS TRANSFERRED HERE FOR EVALUATION AND TREATMENT BY BOTH DR NATION AND DR BAER. CARDIOLOGY WAS ASKED TO SEE HIM. HE HAS A HISTORY OF MILD CAD BY CARDIAC CATH IN THE PAST, HYPERTENSION, HYPERLIPIDEMIA, CKD AND BPH. WHILE AT [facility] HE STATES THAT A CARDIAC BLOOD TEST WAS ELEVATED AND HE HAD A CARDIAC CATH AND STATES HE WAS TOLD THAT THE CORONARY ARTERIES WERE PATENT AND HE DID NOT NEED A STENT. HE DENIES ANGINA PECTORIS OR AN AR RECENTLY OR IN THE PAST. Past Patient History - Infectious Disease Hx of Infectious Diseases: VRE - Tetanus Immunizations Tetanus Immunization: Unknown - Past Medical History & Family History Past Medical History?: Yes - Past Social History Smoking Status: Former Smoker - CARDIAC Hx Cardiac Disorders: Yes Hx Hypercholesterolemia: Yes Hx Hypertension: Yes - PULMONARY Hx Respiratory Disorders: Yes Hx Sleep Apnea: Yes - NEUROLOGICAL Hx Neurological Disorder: Yes - HEENT Hx HEENT Problems: Yes Other/Comment: wears glasses - RENAL Hx Chronic Kidney Disease: Yes - ENDOCRINE/METABOLIC Hx Endocrine Disorders: No Hx Adrenal Cancer: No Hx Diabetes Insipidus: No Hx Diabetes Mellitus Type 1: No Hx Diabetes Mellitus Type 2: No Hx Hyperthyroidism: No Hx Hypothyroidism: No Hx Systemic Lupus Erythematosus: No - HEMATOLOGICAL/ONCOLOGICAL Hx Blood Disorders: Yes Hx Anemia: Yes - INTEGUMENTARY Hx Dermatological Problems: No - MUSCULOSKELETAL/RHEUMATOLOGICAL Hx Musculoskeletal Disorders: Yes Hx Arthritis: Yes Hx Falls: Yes - GASTROINTESTINAL Hx Gastrointestinal Disorders: No - GENITOURINARY/GYNECOLOGICAL Hx Genitourinary Disorders: Yes Hx Prostate Problems: Yes - PSYCHIATRIC Hx Anxiety: No Hx Substance Use: No - SURGICAL HISTORY Hx Surgeries: Yes Hx Joint Replacement: Yes (TOTAL LEFT KNEE REPLACEMENT X 2) Other/Comment: LASER PROSTATE SX. 12/13/16 s/p left tkr revision. 01/10/17 Application of prevena L knee, prostate sx. pt has had recent vascular intervention at [facility] in [place], when he was admitted for "flu" - ANESTHESIA Hx Anesthesia: Yes Hx Anesthesia Reactions: No Hx Malignant Hyperthermia: No Meds Home Medications: Home Medication List Medication Instructions Recorded Confirmed Type Docusate [Colace] 100 mg PO BID cap 07/26/17 Rx Allergies/Adverse Reactions: Allergies Allergy/AdvReac Type Severity Reaction Status Date / Time No Known Allergies Allergy Verified 12/18/16 00:41 - Medications Medications: Current Medications Atorvastatin Calcium (Lipitor) 10 mg PO DAILY [facility] Last Admin: 07/26/17 09:41 Dose: 10 mg Docusate Sodium (Colace) 100 mg PO BID [facility] Last Admin: 07/26/17 09:40 Dose: 100 mg Sodium Chloride (Sodium Chloride 0.9%) 1,000 mls @ 100 mls/hr IV .Q10H [facility] Stop: 07/26/17 20:38 Last Admin: 07/26/17 06:53 Dose: Not Given Metoprolol Succinate (Toprol Xl) 100 mg PO DAILY [facility] Last Admin: 07/26/17 09:41 Dose: 100 mg Pantoprazole Sodium (Protonix Ec Tab) 40 mg PO DAILY [facility] Last Admin: 07/26/17 09:41 Dose: 40 mg Tamsulosin HCl (Flomax) 0.4 mg PO DAILY [facility] Last Admin: 07/26/17 09:41 Dose: 0.4 mg Trimethoprim/Sulfamethoxazole (Bactrim Ss Tab) 1 tab PO BID [facility] Last Admin: 07/26/17 09:40 Dose: 1 tab Physical Exam - Respiratory Exam Respiratory Exam: Clear to Auscultation Bilateral - Cardiovascular Exam Cardiovascular Exam: REGULAR RHYTHM, +S1, +S2 - Extremities Exam Additional comments: LEFT KNEE BANDAGED NO SIGNIFICANT LE EDEMA - Additional Findings Additional findings: EKG NSR(READ BY MACHINE POSSIBLE OLD IWMI BUT A CLOSE INSPECTION SHOWS SMALL R BLIPS IN THE INFERIOR LEADS QRS COMPLEX ORTHOPEDIC NOTE REVIEWED Results - Vital Signs Recent Vital Signs: Last Vital Signs Temp 98 F 07/26/17 08:20 Pulse 52 L 07/26/17 08:20 Resp 18 07/26/17 08:20 BP 123/69 07/26/17 08:20 Pulse Ox 99 07/26/17 08:20 - Labs Result Diagrams: 07/26/17 05:15 07/26/17 05:15 Labs: Laboratory Results - last 24 hr 07/25/17 07/25/17 07/26/17 17:16 17:16 05:15 WBC 6.8 D 5.2 RBC 3.97 L 3.51 L Hgb 9.5 L 8.7 L Hct 30.7 L 26.7 L MCV 77.3 L D 76.0 L MCH 23.8 L 24.8 L MCHC 30.9 L 32.7 L RDW 18.2 H 18.1 H Plt Count 247 213 MPV 7.7 7.7 Neut % (Auto) 67.1 59.2 Lymph % (Auto) 15.2 L 19.6 L Bee % (Auto) 13.9 H 15.2 H Eos % (Auto) 2.9 5.4 H Baso % (Auto) 0.9 0.6 Neut # 4.6 3.1 Lymph # 1.0 1.0 Bee # 0.9 H 0.8 Eos # 0.2 0.3 Baso # 0.1 0.0 PT INR APTT Sodium 139 Potassium 4.5 Chloride 104 Carbon Dioxide 25 Anion Gap 15 BUN 29 H Creatinine 2.1 H Est GFR ( Amer) 37 Est GFR (Non-Af Amer) 31 Random Glucose 94 Calcium 10.0 Total Bilirubin 0.5 AST 26 ALT 24 Alkaline Phosphatase 58 Total Protein 7.1 Albumin 3.4 L D Globulin 3.7 Albumin/Globulin Ratio 0.9 L 07/26/17 07/26/17 05:15 06:25 WBC RBC Hgb Hct MCV MCH MCHC RDW Plt Count MPV Neut % (Auto) Lymph % (Auto) Bee % (Auto) Eos % (Auto) Baso % (Auto) Neut # Lymph # Bee # Eos # Baso # PT 12.6 INR 1.1 APTT 29.2 Sodium 141 Potassium 4.1 Chloride 109 H Carbon Dioxide 26 Anion Gap 10 BUN 29 H Creatinine 2.0 H Est GFR ( Amer) 39 Est GFR (Non-Af Amer) 33 Random Glucose 82 Calcium 9.7 Total Bilirubin AST ALT Alkaline Phosphatase Total Protein Albumin Globulin Albumin/Globulin Ratio Assessment & Plan - Assessment and Plan (Free Text) Assessment: LEFT KNEE PROSTHESIS DISLOCATION CAD-MILD AND STABLE HYPERTENSION HYPERLIPIDEMIA Plan: CONTINUE METOPROLOL, ATORVASTATIN AND ANTIBIOTICS THE PATIENT IS CLEARED FOR SURGERY FROM THE CARDIAC VIEWPOINT
--- NOTE | 2017-07-26 13:56 | CP.PCM.CON ---
History of Present Illness - History of Present Illness History of Present Illness: 76 year old male with a history of HTN, osteoarthritis s/p TKR, complicated by dislocation, admitted for surgical management of his left knee prosthesis dislocation. The patient has been receiving Plavix which was last taken on 07/24. He denies abnormal bleeding and bruising. Past medical history: HTN, osteoarthritis Past surgical history: left knee replacement Family history: Denies hematologic and oncologic problems Social history: Denies tobacco, alcohol, and illicit drug use. Allergies: NKA Review of systems: All remaining review of systems including HEENT, cardiovacular, respiratory, gastrointestinal, genitourinary, musculoskeletal, dermatologic, neurologic, and psychiatric are negative unless mentioned in the HPI. Past Patient History - Infectious Disease Hx of Infectious Diseases: VRE - Tetanus Immunizations Tetanus Immunization: Unknown - Past Medical History & Family History Past Medical History?: Yes - Past Social History Smoking Status: Former Smoker - CARDIAC Hx Cardiac Disorders: Yes Hx Hypercholesterolemia: Yes Hx Hypertension: Yes - PULMONARY Hx Respiratory Disorders: Yes Hx Sleep Apnea: Yes - NEUROLOGICAL Hx Neurological Disorder: Yes - HEENT Hx HEENT Problems: Yes Other/Comment: wears glasses - RENAL Hx Chronic Kidney Disease: Yes - ENDOCRINE/METABOLIC Hx Endocrine Disorders: No Hx Adrenal Cancer: No Hx Diabetes Insipidus: No Hx Diabetes Mellitus Type 1: No Hx Diabetes Mellitus Type 2: No Hx Hyperthyroidism: No Hx Hypothyroidism: No Hx Systemic Lupus Erythematosus: No - HEMATOLOGICAL/ONCOLOGICAL Hx Blood Disorders: Yes Hx Anemia: Yes - INTEGUMENTARY Hx Dermatological Problems: No - MUSCULOSKELETAL/RHEUMATOLOGICAL Hx Musculoskeletal Disorders: Yes Hx Arthritis: Yes Hx Falls: Yes - GASTROINTESTINAL Hx Gastrointestinal Disorders: No - GENITOURINARY/GYNECOLOGICAL Hx Genitourinary Disorders: Yes Hx Prostate Problems: Yes - PSYCHIATRIC Hx Anxiety: No Hx Substance Use: No - SURGICAL HISTORY Hx Surgeries: Yes Hx Joint Replacement: Yes (TOTAL LEFT KNEE REPLACEMENT X 2) Other/Comment: LASER PROSTATE SX. 12/13/16 s/p left tkr revision. 01/10/17 Application of prevena L knee, prostate sx. pt has had recent vascular intervention at [facility] in [place], when he was admitted for "flu" - ANESTHESIA Hx Anesthesia: Yes Hx Anesthesia Reactions: No Hx Malignant Hyperthermia: No Meds Home Medications: Home Medication List Medication Instructions Recorded Confirmed Type Docusate [Colace] 100 mg PO BID cap 07/26/17 Rx Allergies/Adverse Reactions: Allergies Allergy/AdvReac Type Severity Reaction Status Date / Time No Known Allergies Allergy Verified 12/18/16 00:41 - Medications Medications: Current Medications Atorvastatin Calcium (Lipitor) 10 mg PO DAILY [facility] Last Admin: 07/26/17 09:41 Dose: 10 mg Docusate Sodium (Colace) 100 mg PO BID [facility] Last Admin: 07/26/17 09:40 Dose: 100 mg Sodium Chloride (Sodium Chloride 0.9%) 1,000 mls @ 100 mls/hr IV .Q10H [facility] Stop: 07/26/17 20:38 Last Admin: 07/26/17 06:53 Dose: Not Given Metoprolol Succinate (Toprol Xl) 100 mg PO DAILY [facility] Last Admin: 07/26/17 09:41 Dose: 100 mg Pantoprazole Sodium (Protonix Ec Tab) 40 mg PO DAILY [facility] Last Admin: 07/26/17 09:41 Dose: 40 mg Tamsulosin HCl (Flomax) 0.4 mg PO DAILY [facility] Last Admin: 07/26/17 09:41 Dose: 0.4 mg Trimethoprim/Sulfamethoxazole (Bactrim Ss Tab) 1 tab PO BID [facility] Last Admin: 07/26/17 09:40 Dose: 1 tab Physical Exam - Head Exam Head Exam: ATRAUMATIC - Eye Exam Eye Exam: Normal appearance - ENT Exam ENT Exam: Mucous Membranes Dry - Respiratory Exam Respiratory Exam: NORMAL BREATHING PATTERN - Cardiovascular Exam Cardiovascular Exam: +S1, +S2 - GI/Abdominal Exam GI & Abdominal Exam: Normal Bowel Sounds - Neurological Exam Neurological exam: Oriented x3 - Psychiatric Exam Psychiatric exam: Normal Affect, Normal Mood - Skin Skin Exam: Warm Results - Vital Signs Recent Vital Signs: Last Vital Signs Temp 98 F 07/26/17 08:20 Pulse 52 L 07/26/17 08:20 Resp 18 07/26/17 08:20 BP 123/69 07/26/17 08:20 Pulse Ox 99 07/26/17 08:20 - Labs Result Diagrams: 07/26/17 05:15 07/26/17 05:15 Labs: Laboratory Results - last 24 hr 07/25/17 07/25/17 07/26/17 17:16 17:16 05:15 WBC 6.8 D 5.2 RBC 3.97 L 3.51 L Hgb 9.5 L 8.7 L Hct 30.7 L 26.7 L MCV 77.3 L D 76.0 L MCH 23.8 L 24.8 L MCHC 30.9 L 32.7 L RDW 18.2 H 18.1 H Plt Count 247 213 MPV 7.7 7.7 Neut % (Auto) 67.1 59.2 Lymph % (Auto) 15.[address] [place] % (Auto) 13.9 H 15.2 H Eos % (Auto) 2.9 5.4 H Baso % (Auto) 0.9 0.6 Neut # 4.6 3.1 Lymph # 1.[address] [place] # 0.9 H 0.8 Eos # 0.2 0.3 Baso # 0.1 0.0 PT INR APTT Sodium 139 Potassium 4.5 Chloride 104 Carbon Dioxide 25 Anion Gap 15 BUN 29 H Creatinine 2.1 H Est GFR ( Amer) 37 Est GFR (Non-Af Amer) 31 Random Glucose 94 Calcium 10.0 Total Bilirubin 0.5 AST 26 ALT 24 Alkaline Phosphatase 58 Total Protein 7.1 Albumin 3.4 L D Globulin 3.7 Albumin/Globulin Ratio 0.9 L 07/26/17 07/26/17 05:15 06:25 WBC RBC Hgb Hct MCV MCH MCHC RDW Plt Count MPV Neut % (Auto) Lymph % (Auto) [place] % (Auto) Eos % (Auto) Baso % (Auto) Neut # Lymph # [place] # Eos # Baso # PT 12.6 INR 1.1 APTT 29.2 Sodium 141 Potassium 4.1 Chloride 109 H Carbon Dioxide 26 Anion Gap 10 BUN 29 H Creatinine 2.0 H Est GFR ( Amer) 39 Est GFR (Non-Af Amer) 33 Random Glucose 82 Calcium 9.7 Total Bilirubin AST ALT Alkaline Phosphatase Total Protein Albumin Globulin Albumin/Globulin Ratio Assessment & Plan (1) Platelet dysfunction due to drugs Assessment and Plan: the patient will need to be off Plavix for 5 days prior to OR His last dose was taken Monday 07/24 Status: Acute (2) Anemia Assessment and Plan: will check ferritin, retic count, b12, folate, FOBT to further characterize Thank you for this interesting consult. Status: Chronic
[2017-07-27] MEDS: Pantoprazole 40 mg EC Tab PO SCH ×2 (08:27→17:54)
[2017-07-27] MEDS: Tmp-Smz 400 mg-80 mg SS Tab PO SCH ×2 (08:27→17:56)
[2017-07-27] MEDS: Metoprolol Succinate 100 mg XL Tab PO SCH (08:27)
--- NOTE | 2017-07-27 09:51 | CP.PCM.PN ---
Subjective - Date & Time of Evaluation Date of Evaluation: 07/27/17 Time of Evaluation: 08:30 - Subjective Subjective: NO CHEST PAIN OR SOB Objective - Vital Signs/Intake and Output Vital Signs (last 24 hours): Temp Pulse Resp BP Pulse Ox 98.6 F 54 L 18 126/73 98 07/27/17 08:11 07/27/17 08:11 07/27/17 08:11 07/27/17 08:11 07/27/17 08:11 - Medications Medications: Current Medications Atorvastatin Calcium (Lipitor) 10 mg PO DAILY [facility] Last Admin: 07/27/17 08:27 Dose: Not Given Docusate Sodium (Colace) 100 mg PO BID [facility] Last Admin: 07/27/17 08:27 Dose: Not Given Metoprolol Succinate (Toprol Xl) 100 mg PO DAILY [facility] Last Admin: 07/27/17 08:27 Dose: 100 mg Pantoprazole Sodium (Protonix Ec Tab) 40 mg PO DAILY [facility] Last Admin: 07/27/17 08:27 Dose: Not Given Tamsulosin HCl (Flomax) 0.4 mg PO DAILY [facility] Last Admin: 07/27/17 08:27 Dose: Not Given Trimethoprim/Sulfamethoxazole (Bactrim Ss Tab) 1 tab PO BID [facility] Last Admin: 07/27/17 08:27 Dose: Not Given - Labs Labs: 07/26/17 05:15 07/26/17 05:15 PT 12.6 Seconds (9.8-13.1) 07/26/17 06:25 INR 1.1 (0.9-1.2) 07/26/17 06:25 APTT 29.2 Seconds (25.6-37.1) 07/26/17 06:25 - Respiratory Exam Respiratory Exam: Clear to Ausculation Bilateral - Cardiovascular Exam Cardiovascular Exam: REGULAR RHYTHM, +S1, +S2 Assessment and Plan - Assessment and Plan (Free Text) Assessment: LEFT PROSTHETIC KNEE DISLOCATION CAD-STABLE HYPERTENSION HYPERLIPIDEMIA Plan: FOR REVISION OF PROSTHETIC LEFT KNEE TODAY
--- NOTE | 2017-07-27 11:21 | CP.PCM.PN ---
<Devin Umanzor - Last Filed: 07/27/17 18:14> Subjective - Date & Time of Evaluation Date of Evaluation: 07/27/17 Time of Evaluation: 09:30 - Subjective Subjective: Patient was seen and evaluated at bedside this morning. Patient is AAOx3 and is in NAD. Patient denies of any acute overnight events. Managing pain well with medications. Objective - Vital Signs/Intake and Output Vital Signs (last 24 hours): Temp Pulse Resp BP Pulse Ox 98.6 F 54 L 18 126/73 98 07/27/17 08:11 07/27/17 08:11 07/27/17 08:11 07/27/17 08:11 07/27/17 08:11 - Medications Medications: Current Medications Atorvastatin Calcium (Lipitor) 10 mg PO DAILY [facility] Last Admin: 07/27/17 08:27 Dose: Not Given Docusate Sodium (Colace) 100 mg PO BID [facility] Last Admin: 07/27/17 08:27 Dose: Not Given Metoprolol Succinate (Toprol Xl) 100 mg PO DAILY [facility] Last Admin: 07/27/17 08:27 Dose: 100 mg Pantoprazole Sodium (Protonix Ec Tab) 40 mg PO DAILY [facility] Last Admin: 07/27/17 08:27 Dose: Not Given Tamsulosin HCl (Flomax) 0.4 mg PO DAILY [facility] Last Admin: 07/27/17 08:27 Dose: Not Given Trimethoprim/Sulfamethoxazole (Bactrim Ss Tab) 1 tab PO BID [facility] Last Admin: 07/27/17 08:27 Dose: Not Given - Labs Labs: 07/26/17 05:15 07/26/17 05:15 PT 12.6 Seconds (9.8-13.1) 07/26/17 06:25 INR 1.1 (0.9-1.2) 07/26/17 06:25 APTT 29.2 Seconds (25.6-37.1) 07/26/17 06:25 - Constitutional Appears: Well, Non-toxic, No Acute Distress - Head Exam Head Exam: ATRAUMATIC - Eye Exam Eye Exam: Normal appearance - ENT Exam ENT Exam: Normal Exam - Neck Exam Neck Exam: Full ROM, Normal Inspection - Respiratory Exam Respiratory Exam: Clear to Ausculation Bilateral, NORMAL BREATHING PATTERN. absent: Rales, Rhonchi, Wheezes - Cardiovascular Exam Cardiovascular Exam: REGULAR RHYTHM, +S1, +S2. absent: Bradycardia, Tachycardia - GI/Abdominal Exam GI & Abdominal Exam: Soft, Normal Bowel Sounds. absent: Mass, Organomegaly - Rectal Exam Rectal Exam: Deferred - Extremities Exam Extremities Exam: Normal Capillary Refill, Tenderness. absent: Calf Tenderness Additional comments: Left knee dressing is clean, dry and intact with no strike through - Back Exam Back Exam: Full ROM, NORMAL INSPECTION - Neurological Exam Neurological Exam: Alert, Awake, Oriented x3 - Psychiatric Exam Psychiatric exam: Normal Affect, Normal Mood - Skin Skin Exam: Intact, Normal Color, Warm Assessment and Plan - Assessment and Plan (Free Text) Assessment: 76 year old male patient with PMHx of HTN, OA, Renal Insufficiency and BPH was evaluated for left knee wound dehiscence s/p knee surgery. Plan: 1). Dislocated Left Knee Prosthesis - Orthopedic consult - Dr. Chan - Recommendations appreciated - Patient to go to OR today - Close reduction with application of knee immobalizer - Cardiology Consult - Recommendations appreciated - Patient is cleared for surgery - Pain management 2). Postoperative Wound Dehiscence - Plastic consult - Dr Blake for possible wound vac - Bactrim SS qd 3). Renal Insufficiency - DC HCTZ - IV hydration with NSS 100cc/hr - monitor labs 4). HTN - BP stable - continue Metoprolol 5). Hyperlipidemia - Atorvastatin 10 mg 6). BPH - Tamsulosin qd 7). DVT PPx - Held Plavix due to patient going to surgery - Will start on Lovenox tomorrow <Mickie Cramer - Last Filed: 07/27/17 18:28> Objective - Vital Signs/Intake and Output Vital Signs (last 24 hours): Temp Pulse Resp BP Pulse Ox 98.4 F 79 18 133/73 97 07/27/17 18:00 07/27/17 18:00 07/27/17 18:00 07/27/17 18:00 07/27/17 18:00 Intake and Output: 07/27/17 07/27/17 06:59 18:59 Intake Total 250 Balance 250 - Medications Medications: Current Medications Atorvastatin Calcium (Lipitor) 10 mg PO DAILY [facility] Last Admin: 07/27/17 17:55 Dose: 10 mg Docusate Sodium (Colace) 100 mg PO BID [facility] Last Admin: 07/27/17 17:54 Dose: 100 mg Metoprolol Succinate (Toprol Xl) 100 mg PO DAILY [facility] Last Admin: 07/27/17 08:27 Dose: 100 mg Oxycodone/Acetaminophen (Percocet 5/325 Mg Tab) 1 tab PO Q4 PRN PRN Reason: Pain, moderate (4-7) Stop: 07/30/17 16:17 Pantoprazole Sodium (Protonix Ec Tab) 40 mg PO DAILY [facility] Last Admin: 07/27/17 17:54 Dose: 40 mg Tamsulosin HCl (Flomax) 0.4 mg PO DAILY [facility] Last Admin: 07/27/17 17:54 Dose: 0.4 mg Trimethoprim/Sulfamethoxazole (Bactrim Ss Tab) 1 tab PO BID [facility] Last Admin: 07/27/17 17:56 Dose: 1 tab - Labs Labs: 07/26/17 05:15 07/26/17 05:15 PT 12.6 Seconds (9.8-13.1) 07/26/17 06:25 INR 1.1 (0.9-1.2) 07/26/17 06:25 APTT 29.2 Seconds (25.6-37.1) 07/26/17 06:25 Attending/Attestation - Attestation I have personally seen and examined this patient.: Yes I have fully participated in the care of the patient.: Yes I have reviewed all pertinent clinical information, including history, physical exam and plan: Yes Notes (Text): Dislocated TKR, left , s/p Closed Reduction and application of Knee Immobilizer - Pain mgt -DVT proph - Lovenox in am -DR Blake following pt - plan for Wound Vac - ID consult : Dr givens - cont Bactrim for now till Dr givens sees pt CKD stage III
--- NOTE | 2017-07-27 12:33 | CP.PCM.CON ---
History of Present Illness - History of Present Illness History of Present Illness: Plastic Surgery: Jose Rosenbaum is a 76 year old male who is well known to me. He has undergone several TKA of the left knee the most recent being performed by Dr. Chan last January. Post op he developed a wound dehiscence which subsequently became infected (MRSA and pseudomonas). Dr. Quintero has treated him as an in patient and out patient with IV and oral antibiotics. Wound vac therapy has been utilized for the open wound. Due to the infection and marked size of the open wound over the TKA, Dr. Le and Dr. Rutherford agreed to see Mr. Rosenbaum to evaluate him for removal of the prosthesis, insertion of an antibiotic spacer, and closure with a fascio-cutaneous embedded nurse flap. These consultations were to be performed last week; however he became ill with the flu and was hospitalized at [facility]. While at [facility], he underwent an cardiac angiogram which apparently demonstrated patent coronary arteries. On discharge, his TKA became dislocated leading to his present admission here at [facility]. He is on Bactrim and has been cleared by Dr. Herrera for general anesthesia. Dr. Chan apparently plans to reduce and revise the TKA today. PE: Temp = 98.6 (No spikes) WBC = 5.2 H/H = 8.7/26.7 BUN (Creat) = 28 (2.0) TP = 7.1 Alb = 3.4 Left Leg: Dislocated TKA with the knee fixed in a flexed position. No discharge. No active signs of infection. Wound measures 9 x 13 cm Excellent dorsalis pedis pulse. IMPRESSION: Dislocated left TKA with a 9 x 13 cm open wound. RECOMMENDATION: After revision of the TKA today, reinstitute wound vac therapy. New appointments will need to be made with Drs. Le and Krish. Thank you, Neil Blake M.D. Past Patient History - Infectious Disease Hx of Infectious Diseases: VRE - Tetanus Immunizations Tetanus Immunization: Unknown - Past Medical History & Family History Past Medical History?: Yes - Past Social History Smoking Status: Former Smoker - CARDIAC Hx Cardiac Disorders: Yes Hx Hypercholesterolemia: Yes Hx Hypertension: Yes - PULMONARY Hx Respiratory Disorders: Yes Hx Sleep Apnea: Yes - NEUROLOGICAL Hx Neurological Disorder: Yes - HEENT Hx HEENT Problems: Yes Other/Comment: wears glasses - RENAL Hx Chronic Kidney Disease: Yes - ENDOCRINE/METABOLIC Hx Endocrine Disorders: No Hx Adrenal Cancer: No Hx Diabetes Insipidus: No Hx Diabetes Mellitus Type 1: No Hx Diabetes Mellitus Type 2: No Hx Hyperthyroidism: No Hx Hypothyroidism: No Hx Systemic Lupus Erythematosus: No - HEMATOLOGICAL/ONCOLOGICAL Hx Blood Disorders: Yes Hx Anemia: Yes - INTEGUMENTARY Hx Dermatological Problems: No - MUSCULOSKELETAL/RHEUMATOLOGICAL Hx Musculoskeletal Disorders: Yes Hx Arthritis: Yes Hx Falls: Yes - GASTROINTESTINAL Hx Gastrointestinal Disorders: No - GENITOURINARY/GYNECOLOGICAL Hx Genitourinary Disorders: Yes Hx Prostate Problems: Yes - PSYCHIATRIC Hx Anxiety: No Hx Substance Use: No - SURGICAL HISTORY Hx Surgeries: Yes Hx Joint Replacement: Yes (TOTAL LEFT KNEE REPLACEMENT X 2) Other/Comment: LASER PROSTATE SX. 12/13/16 s/p left tkr revision. 01/10/17 Application of prevena L knee, prostate sx. pt has had recent vascular intervention at [facility] in [place], when he was admitted for "flu" - ANESTHESIA Hx Anesthesia: Yes Hx Anesthesia Reactions: No Hx Malignant Hyperthermia: No Meds Home Medications: Home Medication List Medication Instructions Recorded Confirmed Type Docusate [Colace] 100 mg PO BID cap 07/26/17 Rx Allergies/Adverse Reactions: Allergies Allergy/AdvReac Type Severity Reaction Status Date / Time No Known Allergies Allergy Verified 12/18/16 00:41 - Medications Medications: Current Medications Atorvastatin Calcium (Lipitor) 10 mg PO DAILY [facility] Last Admin: 07/27/17 08:27 Dose: Not Given Docusate Sodium (Colace) 100 mg PO BID [facility] Last Admin: 07/27/17 08:27 Dose: Not Given Metoprolol Succinate (Toprol Xl) 100 mg PO DAILY [facility] Last Admin: 07/27/17 08:27 Dose: 100 mg Pantoprazole Sodium (Protonix Ec Tab) 40 mg PO DAILY [facility] Last Admin: 07/27/17 08:27 Dose: Not Given Tamsulosin HCl (Flomax) 0.4 mg PO DAILY [facility] Last Admin: 07/27/17 08:27 Dose: Not Given Trimethoprim/Sulfamethoxazole (Bactrim Ss Tab) 1 tab PO BID [facility] Last Admin: 07/27/17 08:27 Dose: Not Given Results - Vital Signs Recent Vital Signs: Last Vital Signs Temp 98.6 F 07/27/17 08:11 Pulse 54 L 07/27/17 08:11 Resp 18 07/27/17 08:11 BP 126/73 07/27/17 08:11 Pulse Ox 98 07/27/17 08:11 - Labs Result Diagrams: 07/26/17 05:15 07/26/17 05:15 Labs: Laboratory Results - last 24 hr 07/27/17 07/27/17 05:30 05:30 Retic Count 2.0 H Ferritin 537.0 H Vitamin B12 452
--- NOTE | 2017-07-27 12:45 | CP.PCM.PN ---
Objective - Vital Signs/Intake and Output Vital Signs (last 24 hours): Temp Pulse Resp BP Pulse Ox 98.6 F 54 L 18 126/73 98 07/27/17 08:11 07/27/17 08:11 07/27/17 08:11 07/27/17 08:11 07/27/17 08:11 - Medications Medications: Current Medications Atorvastatin Calcium (Lipitor) 10 mg PO DAILY [facility] Last Admin: 07/27/17 08:27 Dose: Not Given Docusate Sodium (Colace) 100 mg PO BID [facility] Last Admin: 07/27/17 08:27 Dose: Not Given Metoprolol Succinate (Toprol Xl) 100 mg PO DAILY [facility] Last Admin: 07/27/17 08:27 Dose: 100 mg Pantoprazole Sodium (Protonix Ec Tab) 40 mg PO DAILY [facility] Last Admin: 07/27/17 08:27 Dose: Not Given Tamsulosin HCl (Flomax) 0.4 mg PO DAILY [facility] Last Admin: 07/27/17 08:27 Dose: Not Given Trimethoprim/Sulfamethoxazole (Bactrim Ss Tab) 1 tab PO BID [facility] Last Admin: 07/27/17 08:27 Dose: Not Given - Labs Labs: 07/26/17 05:15 07/26/17 05:15 PT 12.6 Seconds (9.8-13.1) 07/26/17 06:25 INR 1.1 (0.9-1.2) 07/26/17 06:25 APTT 29.2 Seconds (25.6-37.1) 07/26/17 06:25
[2017-07-27] MEDS ORDERED: Phenylephrine 10 mg/ml Inj ONE (13:55)
[2017-07-27] MEDS ORDERED: Etomidate 20 mg/10ml Inj IV ONE (13:55)
[2017-07-27] MEDS ORDERED: Succinylcholine 200 mg/10 ml Inj IV ONE (13:57)
[2017-07-27] MEDS ORDERED: Midazolam 2 MG/2 ML VIAL ONE (14:27)
[2017-07-27] MEDS ORDERED: Lactated Ringer's 1,000 ML IV ONE (14:30)
[2017-07-27] MEDS ORDERED: Povidone Iodine 10% OINTMENT TOP ONE (14:40)
[2017-07-27] MEDS ORDERED: Propofol 10 mg/ml Inj (20 ML) ONE (14:44)
[2017-07-27] MEDS ORDERED: Rocuronium 10 mg/ml (5 ml) ONE (14:45)
[2017-07-27] MEDS ORDERED: Neostigmine Methylsulfate 2 MG/2 ML ML IV ONE ×2 (14:51→14:52)
[2017-07-27] MEDS: HYDROmorphone 0.5 mg/0.5 ml ISec IVP PRN ×3 (15:25→16:20)
--- NOTE | 2017-07-27 15:30 | PCM.SURG1 ---
Surgeon's Initial Post Op Note - Surgeon's Notes Surgeon: Dustin Karate Teacher: EASTON Mayo Type of Anesthesia: General Endo Anesthesia Administered By: DR Corona Pre-Operative Diagnosis: Dislocated L TKR (COnstarined) Operative Findings: as above. chronically open wound, under the care of DR Cholo Coats;[place] [facility] [place] Post-Operative Diagnosis: as above Operation Performed: Closed reduction dislocated L TKR. applx knee immobilizer Specimen/Specimens Removed: N/A Estimated Blood Loss: EBL {In ML}: 0 Blood Products Given: N/A Drains Used: No Drains Post-Op Condition: Good Date of Surgery/Procedure: 07/27/17 Time of Surgery/Procedure: 14:40 (time in room 14:30)
--- NOTE | 2017-07-27 16:12 | RAD ---
PROCEDURE: Left Knee Radiographs. HISTORY: Pain. COMPARISON: Left knee 07/25/2017 and left knee 02/17/2017 FINDINGS: BONES: The prior dislocated prosthesis has been return to normal anatomical alignment. The tibial stem cemented component is similar. Lower leg screws similar in position. The relative lucencies projecting over medial tibial screws are similar with the earlier pre dislocated image from 02/17/2017 JOINTS: Normal. No osteoarthritis. JOINT EFFUSION: None. OTHER FINDINGS: Ossification medial to the medial tibial plateau prosthesis shows interval progressive ossification compared to the earlier 02/17/2017 - there topic calcification favored IMPRESSION: Reduction of the prior dislocated prosthesis - other findings essentially similar
--- NOTE | 2017-07-27 19:13 | CP.PCM.PN ---
Subjective - Date & Time of Evaluation Date of Evaluation: 07/27/17 Time of Evaluation: 19:11 - Subjective Subjective: I D NOTE PATIENT WELL KNOWN TO ME HAVE STARTED GENTAMICIN CULTURE TESTED AGAINST AVYCAZ Objective - Vital Signs/Intake and Output Vital Signs (last 24 hours): Temp Pulse Resp BP Pulse Ox 98.5 F 79 18 134/75 98 07/27/17 19:01 07/27/17 19:01 07/27/17 19:01 07/27/17 19:01 07/27/17 19:01 Intake and Output: 07/27/17 07/28/17 18:59 06:59 Intake Total 250 Balance 250 - Medications Medications: Current Medications Atorvastatin Calcium (Lipitor) 10 mg PO DAILY [facility] Last Admin: 07/27/17 17:55 Dose: 10 mg Docusate Sodium (Colace) 100 mg PO BID [facility] Last Admin: 07/27/17 17:54 Dose: 100 mg Gentamicin Sulfate/Sodium Chloride (Gentamicin 60mg/50ml Ns) 60 mg in 50 mls @ 50 mls/hr IVPB Q12 [facility] Metoprolol Succinate (Toprol Xl) 100 mg PO DAILY [facility] Last Admin: 07/27/17 08:27 Dose: 100 mg Oxycodone/Acetaminophen (Percocet 5/325 Mg Tab) 1 tab PO Q4 PRN PRN Reason: Pain, moderate (4-7) Stop: 07/30/17 16:17 Pantoprazole Sodium (Protonix Ec Tab) 40 mg PO DAILY [facility] Last Admin: 07/27/17 17:54 Dose: 40 mg Tamsulosin HCl (Flomax) 0.4 mg PO DAILY [facility] Last Admin: 07/27/17 17:54 Dose: 0.4 mg Trimethoprim/Sulfamethoxazole (Bactrim Ss Tab) 1 tab PO BID [facility] Last Admin: 07/27/17 17:56 Dose: 1 tab - Labs Labs: 07/26/17 05:15 07/26/17 05:15 PT 12.6 Seconds (9.8-13.1) 07/26/17 06:25 INR 1.1 (0.9-1.2) 07/26/17 06:25 APTT 29.2 Seconds (25.6-37.1) 07/26/17 06:25
[2017-07-27] MEDS: Gentamicin 60mg/50ml NS 60 MG/50 ML BAG IVPB SCH (21:42)
--- NOTE | 2017-07-27 22:17 | CP.PCM.PN ---
Subjective - Date & Time of Evaluation Date of Evaluation: 07/27/17 Time of Evaluation: 18:00 - Subjective Subjective: s/p OR; no hemostasis/bleeding complications Objective - Vital Signs/Intake and Output Vital Signs (last 24 hours): Temp Pulse Resp BP Pulse Ox 98.5 F 80 18 134/77 96 07/27/17 20:52 07/27/17 20:52 07/27/17 20:52 07/27/17 20:52 07/27/17 20:52 Intake and Output: 07/27/17 07/28/17 18:59 06:59 Intake Total 250 Balance 250 - Medications Medications: Current Medications Atorvastatin Calcium (Lipitor) 10 mg PO DAILY [facility] Last Admin: 07/27/17 17:55 Dose: 10 mg Docusate Sodium (Colace) 100 mg PO BID [facility] Last Admin: 07/27/17 17:54 Dose: 100 mg Gentamicin Sulfate/Sodium Chloride (Gentamicin 60mg/50ml Ns) 60 mg in 50 mls @ 50 mls/hr IVPB Q12 [facility] Last Admin: 07/27/17 21:42 Dose: 50 mls/hr Metoprolol Succinate (Toprol Xl) 100 mg PO DAILY [facility] Last Admin: 07/27/17 08:27 Dose: 100 mg Oxycodone/Acetaminophen (Percocet 5/325 Mg Tab) 1 tab PO Q4 PRN PRN Reason: Pain, moderate (4-7) Stop: 07/30/17 16:17 Pantoprazole Sodium (Protonix Ec Tab) 40 mg PO DAILY [facility] Last Admin: 07/27/17 17:54 Dose: 40 mg Tamsulosin HCl (Flomax) 0.4 mg PO DAILY [facility] Last Admin: 07/27/17 17:54 Dose: 0.4 mg Trimethoprim/Sulfamethoxazole (Bactrim Ss Tab) 1 tab PO BID [facility] Last Admin: 07/27/17 17:56 Dose: 1 tab - Labs Labs: 07/26/17 05:15 07/26/17 05:15 PT 12.6 Seconds (9.8-13.1) 07/26/17 06:25 INR 1.1 (0.9-1.2) 07/26/17 06:25 APTT 29.2 Seconds (25.6-37.1) 07/26/17 06:25 - Head Exam Head Exam: ATRAUMATIC - Eye Exam Eye Exam: Normal appearance - ENT Exam ENT Exam: Mucous Membranes Dry - Respiratory Exam Respiratory Exam: NORMAL BREATHING PATTERN - Cardiovascular Exam Cardiovascular Exam: +S1, +S2 - GI/Abdominal Exam GI & Abdominal Exam: Normal Bowel Sounds Assessment and Plan (1) Platelet dysfunction due to drugs Assessment & Plan: no bleeding/hemostasis issues post surgery Status: Acute (2) Anemia Assessment & Plan: renal disease and chronic disease normal iron/b12/folate stores will give 1 dose of Procrit in an attempt to decrease transfusion dependence post surgery Status: Chronic
[2017-07-28] MEDS: Oxycodone/Acetaminophen 5/325 mg Tab PO PRN ×3 (02:36→21:07)
[2017-07-28 07:04] LABS: BLOOD UREA NITROGEN 17 mg/dl (9-20); CALCIUM 9.8 mg/dL (8.4-10.2); GFR AFRICAN-AMERICAN > 60; GFR NON-AFRICAN AMERICAN 54
[2017-07-28] MEDS: Tmp-Smz 400 mg-80 mg SS Tab PO SCH ×2 (08:50→16:22)
[2017-07-28] MEDS: Pantoprazole 40 mg EC Tab PO SCH (08:51)
[2017-07-28] MEDS: Metoprolol Succinate 100 mg XL Tab PO SCH (08:51)
[2017-07-28] MEDS: Gentamicin 60mg/50ml NS 60 MG/50 ML BAG IVPB SCH ×2 (08:52→21:02)
[2017-07-28] MEDS ORDERED: Epoetin Alfa 20000 UNIT/ML (RENAL DOSE) SC ONE (10:00)
--- NOTE | 2017-07-28 10:35 | CP.PCM.PN ---
Subjective - Date & Time of Evaluation Date of Evaluation: 07/28/17 Time of Evaluation: 08:00 - Subjective Subjective: NO CHEST PAIN OR SOB Objective - Vital Signs/Intake and Output Vital Signs (last 24 hours): Temp Pulse Resp BP Pulse Ox 98.4 F 58 L 18 134/68 96 07/28/17 08:12 07/28/17 08:51 07/28/17 08:12 07/28/17 08:51 07/28/17 08:12 - Medications Medications: Current Medications Atorvastatin Calcium (Lipitor) 10 mg PO DAILY [facility] Last Admin: 07/28/17 09:06 Dose: 10 mg Docusate Sodium (Colace) 100 mg PO BID [facility] Last Admin: 07/28/17 08:50 Dose: 100 mg Gentamicin Sulfate/Sodium Chloride (Gentamicin 60mg/50ml Ns) 60 mg in 50 mls @ 50 mls/hr IVPB Q12 [facility] Last Admin: 07/28/17 08:52 Dose: 50 mls/hr Metoprolol Succinate (Toprol Xl) 100 mg PO DAILY [facility] Last Admin: 07/28/17 08:51 Dose: 100 mg Ondansetron HCl (Zofran Inj) 4 mg IVP Q4 PRN PRN Reason: Nausea/Vomiting Last Admin: 07/27/17 22:56 Dose: 4 mg Oxycodone/Acetaminophen (Percocet 5/325 Mg Tab) 1 tab PO Q4 PRN PRN Reason: Pain, moderate (4-7) Stop: 07/30/17 16:17 Last Admin: 07/28/17 09:05 Dose: 1 tab Pantoprazole Sodium (Protonix Ec Tab) 40 mg PO DAILY [facility] Last Admin: 07/28/17 08:51 Dose: 40 mg Tamsulosin HCl (Flomax) 0.4 mg PO DAILY [facility] Last Admin: 07/28/17 08:50 Dose: 0.4 mg Trimethoprim/Sulfamethoxazole (Bactrim Ss Tab) 1 tab PO BID [facility] Last Admin: 07/28/17 08:50 Dose: 1 tab - Labs Labs: 07/26/17 05:15 07/28/17 05:30 PT 12.6 Seconds (9.8-13.1) 07/26/17 06:25 INR 1.1 (0.9-1.2) 07/26/17 06:25 APTT 29.2 Seconds (25.6-37.1) 07/26/17 06:25 - Respiratory Exam Respiratory Exam: Clear to Ausculation Bilateral - Cardiovascular Exam Cardiovascular Exam: REGULAR RHYTHM, +S1, +S2 - Extremities Exam Additional comments: LEFT LE WITH KNEE IMMOBILIZER - Additional Findings Additional findings: OR NOTES REVIEWED WITH CLOSED REDUCTION OF LEFT TKR AND APPLICATION OF IMMOBILIZER ID NOTE REVIEWED Assessment and Plan - Assessment and Plan (Free Text) Assessment: S/P CLOSED REDUCTION OF LEFT TKR DISLOCATION HYPERTENSION HYPERLIPIDEMIA Plan: CONTINUE METOPROLOL, ATORVASTATIN AND ANTIBIOTICS
--- NOTE | 2017-07-28 12:58 | CP.PCM.PN ---
Subjective - Date & Time of Evaluation Date of Evaluation: 07/28/17 Time of Evaluation: 12:53 - Subjective Subjective: Patient says pain in knee is controlled. No new complaints. Objective - Vital Signs/Intake and Output Vital Signs (last 24 hours): Temp Pulse Resp BP Pulse Ox 98.4 F 58 L 18 134/68 96 07/28/17 08:12 07/28/17 08:51 07/28/17 08:12 07/28/17 08:51 07/28/17 08:12 - Medications Medications: Current Medications Atorvastatin Calcium (Lipitor) 10 mg PO DAILY [facility] Last Admin: 07/28/17 09:06 Dose: 10 mg Docusate Sodium (Colace) 100 mg PO BID [facility] Last Admin: 07/28/17 08:50 Dose: 100 mg Gentamicin Sulfate/Sodium Chloride (Gentamicin 60mg/50ml Ns) 60 mg in 50 mls @ 50 mls/hr IVPB Q12 [facility] Last Admin: 07/28/17 08:52 Dose: 50 mls/hr Metoprolol Succinate (Toprol Xl) 100 mg PO DAILY [facility] Last Admin: 07/28/17 08:51 Dose: 100 mg Ondansetron HCl (Zofran Inj) 4 mg IVP Q4 PRN PRN Reason: Nausea/Vomiting Last Admin: 07/27/17 22:56 Dose: 4 mg Oxycodone/Acetaminophen (Percocet 5/325 Mg Tab) 1 tab PO Q4 PRN PRN Reason: Pain, moderate (4-7) Stop: 07/30/17 16:17 Last Admin: 07/28/17 09:05 Dose: 1 tab Pantoprazole Sodium (Protonix Ec Tab) 40 mg PO DAILY [facility] Last Admin: 07/28/17 08:51 Dose: 40 mg Tamsulosin HCl (Flomax) 0.4 mg PO DAILY [facility] Last Admin: 07/28/17 08:50 Dose: 0.4 mg Trimethoprim/Sulfamethoxazole (Bactrim Ss Tab) 1 tab PO BID [facility] Last Admin: 07/28/17 08:50 Dose: 1 tab - Labs Labs: 07/26/17 05:15 07/28/17 05:30 PT 12.6 Seconds (9.8-13.1) 07/26/17 06:25 INR 1.1 (0.9-1.2) 07/26/17 06:25 APTT 29.2 Seconds (25.6-37.1) 07/26/17 06:25 - Extremities Exam Additional comments: post op imaging demonstrates reduced prosthesis LLE knee immob intact +ROM toes, +DP pulse Assessment and Plan (1) Dislocation of prosthetic joint of knee Assessment & Plan: now reduced treatment of open wound as per plastics d/w DR. Chan, agrees with above Status: Acute
--- NOTE | 2017-07-28 15:35 | CP.PCM.PN ---
Subjective - Date & Time of Evaluation Date of Evaluation: 07/28/17 Time of Evaluation: 12:05 - Subjective Subjective: No complaints. Objective - Vital Signs/Intake and Output Vital Signs (last 24 hours): Temp Pulse Resp BP Pulse Ox 98.4 F 58 L 18 134/68 96 07/28/17 08:12 07/28/17 08:51 07/28/17 08:12 07/28/17 08:51 07/28/17 08:12 - Medications Medications: Current Medications Atorvastatin Calcium (Lipitor) 10 mg PO DAILY [facility] Last Admin: 07/28/17 09:06 Dose: 10 mg Docusate Sodium (Colace) 100 mg PO BID [facility] Last Admin: 07/28/17 08:50 Dose: 100 mg Gentamicin Sulfate/Sodium Chloride (Gentamicin 60mg/50ml Ns) 60 mg in 50 mls @ 50 mls/hr IVPB Q12 [facility] Last Admin: 07/28/17 08:52 Dose: 50 mls/hr Metoprolol Succinate (Toprol Xl) 100 mg PO DAILY [facility] Last Admin: 07/28/17 08:51 Dose: 100 mg Ondansetron HCl (Zofran Inj) 4 mg IVP Q4 PRN PRN Reason: Nausea/Vomiting Last Admin: 07/27/17 22:56 Dose: 4 mg Oxycodone/Acetaminophen (Percocet 5/325 Mg Tab) 1 tab PO Q4 PRN PRN Reason: Pain, moderate (4-7) Stop: 07/30/17 16:17 Last Admin: 07/28/17 09:05 Dose: 1 tab Pantoprazole Sodium (Protonix Ec Tab) 40 mg PO DAILY [facility] Last Admin: 07/28/17 08:51 Dose: 40 mg Tamsulosin HCl (Flomax) 0.4 mg PO DAILY [facility] Last Admin: 07/28/17 08:50 Dose: 0.4 mg Trimethoprim/Sulfamethoxazole (Bactrim Ss Tab) 1 tab PO BID [facility] Last Admin: 07/28/17 08:50 Dose: 1 tab - Labs Labs: 07/26/17 05:15 07/28/17 05:30 PT 12.6 Seconds (9.8-13.1) 07/26/17 06:25 INR 1.1 (0.9-1.2) 07/26/17 06:25 APTT 29.2 Seconds (25.6-37.1) 07/26/17 06:25 - Head Exam Head Exam: ATRAUMATIC - Eye Exam Eye Exam: Normal appearance - ENT Exam ENT Exam: Mucous Membranes Dry - Respiratory Exam Respiratory Exam: NORMAL BREATHING PATTERN - Cardiovascular Exam Cardiovascular Exam: +S1, +S2 - GI/Abdominal Exam GI & Abdominal Exam: Normal Bowel Sounds Assessment and Plan (1) Anemia Assessment & Plan: chronic disease and renal disease s/p Procrit today in an attempt to decrease transfusion need f/u hgb electropheresis ? hemoglobinopathy trait. Status: Chronic
[2017-07-28 16:00] VITALS: RESP 20
--- NOTE | 2017-07-28 16:53 | CP.PCM.PN ---
Subjective - Date & Time of Evaluation Date of Evaluation: 07/28/17 Time of Evaluation: 11:00 - Subjective Subjective: Patient seen and examined. Denied any pain but still non-ambulatory. Objective - Vital Signs/Intake and Output Vital Signs (last 24 hours): Temp Pulse Resp BP Pulse Ox 98.4 F 65 20 115/63 96 07/28/17 15:59 07/28/17 15:59 07/28/17 15:59 07/28/17 15:59 07/28/17 15:59 - Medications Medications: Current Medications Atorvastatin Calcium (Lipitor) 10 mg PO DAILY [facility] Last Admin: 07/28/17 09:06 Dose: 10 mg Docusate Sodium (Colace) 100 mg PO BID [facility] Last Admin: 07/28/17 16:22 Dose: 100 mg Gentamicin Sulfate/Sodium Chloride (Gentamicin 60mg/50ml Ns) 60 mg in 50 mls @ 50 mls/hr IVPB Q12 [facility] Last Admin: 07/28/17 08:52 Dose: 50 mls/hr Metoprolol Succinate (Toprol Xl) 100 mg PO DAILY [facility] Last Admin: 07/28/17 08:51 Dose: 100 mg Ondansetron HCl (Zofran Inj) 4 mg IVP Q4 PRN PRN Reason: Nausea/Vomiting Last Admin: 07/27/17 22:56 Dose: 4 mg Oxycodone/Acetaminophen (Percocet 5/325 Mg Tab) 1 tab PO Q4 PRN PRN Reason: Pain, moderate (4-7) Stop: 07/30/17 16:17 Last Admin: 07/28/17 09:05 Dose: 1 tab Pantoprazole Sodium (Protonix Ec Tab) 40 mg PO DAILY [facility] Last Admin: 07/28/17 08:51 Dose: 40 mg Tamsulosin HCl (Flomax) 0.4 mg PO DAILY [facility] Last Admin: 07/28/17 08:50 Dose: 0.4 mg Trimethoprim/Sulfamethoxazole (Bactrim Ss Tab) 1 tab PO BID [facility] Last Admin: 07/28/17 16:22 Dose: 1 tab - Labs Labs: 07/26/17 05:15 07/28/17 05:30 PT 12.6 Seconds (9.8-13.1) 07/26/17 06:25 INR 1.1 (0.9-1.2) 07/26/17 06:25 APTT 29.2 Seconds (25.6-37.1) 07/26/17 06:25 - Constitutional Appears: No Acute Distress - Head Exam Head Exam: ATRAUMATIC - Eye Exam Eye Exam: absent: Scleral icterus - ENT Exam ENT Exam: Mucous Membranes Moist - Neck Exam Neck Exam: absent: Meningismus - Respiratory Exam Respiratory Exam: absent: Rhonchi, Wheezes, Respiratory Distress - Cardiovascular Exam Cardiovascular Exam: REGULAR RHYTHM, +S1, +S2 - GI/Abdominal Exam GI & Abdominal Exam: Soft. absent: Tenderness - Rectal Exam Rectal Exam: Deferred - Extremities Exam Extremities Exam: absent: Full ROM (left knee on splint and dressing) - Neurological Exam Neurological Exam: Alert, Oriented x3 - Psychiatric Exam Psychiatric exam: Normal Affect - Skin Skin Exam: Dry, Intact Assessment and Plan - Assessment and Plan (Free Text) Assessment: 76 yo male with history of HTN, OA, Renal Insufficiency and BPH was discharged on 03/04/2017 after patellar ligament repair and debridement of left knee, post revision of TKR and sent home with open wound with intent of primary wound closure by Dr Blake, plastic surgeon. Wound vac was placed and changed 3 times a week by Dr Blake. In spite of open wound, patient was able to ambulate with a walker. However patient had flu and was confined at [facility]. According to him wound vac was changed by a physician there and accidentally dislocated the knee prosthesis. Since then, it became very painful to ambulate even with a walker. 1. Dislocated Left Knee Prosthesis had close reduction and application of knee immobilizer on 07/27/2017 for possible transfer to [facility] 2. Postoperative Wound Dehiscence Dr Blake on consult for plastic surgery continue wound vac placement 3. HTN BP stable continue Metoprolol 4. Renal Insufficiency resolved with hydration
--- NOTE | 2017-07-28 17:19 | RAD ---
PROCEDURE: Intraoperative Fluoroscopy. HISTORY: LEFT KNEE FINDINGS: Fluoroscopic assistance was provided for dislocation. Please refer to the operative report from YRIS Davidson. Left knee prosthesis Total fluoroscopic time (continuous mode) utilized during the procedure: 4.8 seconds. Total exam DLP: (mGy): 0.24.
--- NOTE | 2017-07-28 20:21 | CP.PCM.PN ---
Subjective - Date & Time of Evaluation Date of Evaluation: 07/28/17 Time of Evaluation: 20:10 - Subjective Subjective: I D NOTE AFEBRILE RENAL FUNCTION HAS IMPROVED CONTINUE GENTAMICIN WE AWAIT FURTHER CULTURE RESULTS Objective - Vital Signs/Intake and Output Vital Signs (last 24 hours): Temp Pulse Resp BP Pulse Ox 98.4 F 65 20 115/63 96 07/28/17 15:59 07/28/17 15:59 07/28/17 15:59 07/28/17 15:59 07/28/17 15:59 - Medications Medications: Current Medications Atorvastatin Calcium (Lipitor) 10 mg PO DAILY [facility] Last Admin: 07/28/17 09:06 Dose: 10 mg Docusate Sodium (Colace) 100 mg PO BID [facility] Last Admin: 07/28/17 16:22 Dose: 100 mg Gentamicin Sulfate/Sodium Chloride (Gentamicin 60mg/50ml Ns) 60 mg in 50 mls @ 50 mls/hr IVPB Q12 [facility] Last Admin: 07/28/17 08:52 Dose: 50 mls/hr Metoprolol Succinate (Toprol Xl) 100 mg PO DAILY [facility] Last Admin: 07/28/17 08:51 Dose: 100 mg Ondansetron HCl (Zofran Inj) 4 mg IVP Q4 PRN PRN Reason: Nausea/Vomiting Last Admin: 07/27/17 22:56 Dose: 4 mg Oxycodone/Acetaminophen (Percocet 5/325 Mg Tab) 1 tab PO Q4 PRN PRN Reason: Pain, moderate (4-7) Stop: 07/30/17 16:17 Last Admin: 07/28/17 09:05 Dose: 1 tab Pantoprazole Sodium (Protonix Ec Tab) 40 mg PO DAILY [facility] Last Admin: 07/28/17 08:51 Dose: 40 mg Tamsulosin HCl (Flomax) 0.4 mg PO DAILY [facility] Last Admin: 07/28/17 08:50 Dose: 0.4 mg Trimethoprim/Sulfamethoxazole (Bactrim Ss Tab) 1 tab PO BID [facility] Last Admin: 07/28/17 16:22 Dose: 1 tab - Labs Labs: 07/26/17 05:15 07/28/17 05:30 PT 12.6 Seconds (9.8-13.1) 07/26/17 06:25 INR 1.1 (0.9-1.2) 07/26/17 06:25 APTT 29.2 Seconds (25.6-37.1) 07/26/17 06:25
[2017-07-29 01:45] LABS: MCH 24.6 pg (27.0-33.0); MCV 76.8 fL (80.0-100.0)
[2017-07-29] MEDS: Pantoprazole 40 mg EC Tab PO SCH (08:32)
[2017-07-29] MEDS: Tmp-Smz 400 mg-80 mg SS Tab PO SCH (08:32)
[2017-07-29] MEDS: Metoprolol Succinate 100 mg XL Tab PO SCH (08:33)
[2017-07-29] MEDS: Gentamicin 60mg/50ml NS 60 MG/50 ML BAG IVPB SCH (08:35)
[2017-07-29] MEDS: Oxycodone/Acetaminophen 5/325 mg Tab PO PRN (08:37)
--- NOTE | 2017-07-29 09:38 | CP.PCM.PN ---
Subjective - Date & Time of Evaluation Date of Evaluation: 07/29/17 Time of Evaluation: 08:30 - Subjective Subjective: NO NEW COMPLAINTS Objective - Vital Signs/Intake and Output Vital Signs (last 24 hours): Temp Pulse Resp BP Pulse Ox 99.2 F 75 20 168/82 H 99 07/29/17 08:31 07/29/17 08:33 07/29/17 08:31 07/29/17 08:33 07/29/17 08:31 - Medications Medications: Current Medications Atorvastatin Calcium (Lipitor) 10 mg PO DAILY [facility] Last Admin: 07/29/17 08:32 Dose: 10 mg Docusate Sodium (Colace) 100 mg PO BID [facility] Last Admin: 07/29/17 08:33 Dose: 100 mg Gentamicin Sulfate/Sodium Chloride (Gentamicin 60mg/50ml Ns) 60 mg in 50 mls @ 50 mls/hr IVPB Q12 [facility] Last Admin: 07/29/17 08:35 Dose: 50 mls/hr Metoprolol Succinate (Toprol Xl) 100 mg PO DAILY [facility] Last Admin: 07/29/17 08:33 Dose: 100 mg Ondansetron HCl (Zofran Inj) 4 mg IVP Q4 PRN PRN Reason: Nausea/Vomiting Last Admin: 07/27/17 22:56 Dose: 4 mg Oxycodone/Acetaminophen (Percocet 5/325 Mg Tab) 1 tab PO Q4 PRN PRN Reason: Pain, moderate (4-7) Stop: 07/30/17 16:17 Last Admin: 07/29/17 08:37 Dose: 1 tab Pantoprazole Sodium (Protonix Ec Tab) 40 mg PO DAILY [facility] Last Admin: 07/29/17 08:32 Dose: 40 mg Tamsulosin HCl (Flomax) 0.4 mg PO DAILY [facility] Last Admin: 07/29/17 08:32 Dose: 0.4 mg Trimethoprim/Sulfamethoxazole (Bactrim Ss Tab) 1 tab PO BID [facility] Last Admin: 07/29/17 08:32 Dose: 1 tab - Labs Labs: 07/26/17 05:15 07/28/17 05:30 PT 12.6 Seconds (9.8-13.1) 07/26/17 06:25 INR 1.1 (0.9-1.2) 07/26/17 06:25 APTT 29.2 Seconds (25.6-37.1) 07/26/17 06:25 - Respiratory Exam Respiratory Exam: Clear to Ausculation Bilateral - Cardiovascular Exam Cardiovascular Exam: REGULAR RHYTHM, +S1, +S2 - Extremities Exam Additional comments: LEFT LOWER EXTREMITY IMMOBILIZER Assessment and Plan - Assessment and Plan (Free Text) Assessment: CLOSED REDUCTION OF LEFT TKR WITH OPEN WOUND AT THE KNEE CAD-MILD HYPERTENSION Plan: CONTINUE METOPROLOL, ATORVASTATIN AND ANTIBIOTICS
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
--- NOTE | 2017-07-29 13:29 | CP.PCM.DIS ---
Provider - Provider Date of Admission: 07/25/17 19:27 Attending physician: Gertrudis Barillas MD Consults: Dr Adeola Herrera Time Spent in preparation of Discharge (in minutes): 25 Diagnosis - Discharge Diagnosis (1) Dislocation of prosthetic joint of knee Status: Acute Comment: close reduction with knee immobilizer on 07/27/2017. continue PT/OT at [facility] (2) Postoperative wound dehiscence Status: Acute Comment: Dr Blake to follow patient in [facility] (3) HTN (hypertension) Status: Chronic Comment: BP stable. on Metoprolol Hospital Course - Lab Results Lab Results: Micro Results 07/25/17 17:00 Blood Blood Culture - Preliminary NO GROWTH AFTER 3 DAYS 07/25/17 17:16 Knee - Left Gram Stain - Final 07/25/17 17:16 Knee - Left Wound Culture - Final Citrobacter Freundii Corynebacterium Species Most Recent Lab Values WBC 5.2 K/uL (4.8-10.8) 07/26/17 05:15 RBC 3.51 Mil/uL (4.40-5.90) L 07/26/17 05:15 Hgb 8.7 g/dL (12.0-18.0) L 07/26/17 05:15 Hct 26.7 % (35.0-51.0) L 07/26/17 05:15 MCV 76.0 fl (80.0-94.0) L 07/26/17 05:15 MCH 24.8 pg (27.0-31.0) L 07/26/17 05:15 MCHC 32.7 g/dL (33.0-37.0) L 07/26/17 05:15 RDW 18.1 % (11.5-14.5) H 07/26/17 05:15 Plt Count 213 K/uL (130-400) 07/26/17 05:15 MPV 7.7 fl (7.2-11.7) 07/26/17 05:15 Neut % (Auto) 59.2 % (50.0-75.0) 07/26/17 05:15 Lymph % (Auto) 19.6 % (20.0-40.0) L 07/26/17 05:15 Bracken % (Auto) 15.2 % (0.0-10.0) H 07/26/17 05:15 Eos % (Auto) 5.4 % (0.0-4.0) H 07/26/17 05:15 Baso % (Auto) 0.6 % (0.0-2.0) 07/26/17 05:15 Neut # 3.1 K/uL (1.8-7.0) 07/26/17 05:15 Lymph # 1.0 K/uL (1.0-4.3) 07/26/17 05:15 Bracken # 0.8 K/uL (0.0-0.8) 07/26/17 05:15 Eos # 0.3 K/uL (0.0-0.7) 07/26/17 05:15 Baso # 0.0 K/uL (0.0-0.2) 07/26/17 05:15 Retic Count 2.0 % (0.5-1.5) H 07/27/17 05:30 Hemoglobinopathy Red Blood Count 3.65 Mill/mcL (4.20-5.80) L 07/28/17 05:30 Hemoglobinopathy Hct 28.1 % (38.5-50.0) L 07/28/17 05:30 Hemoglobinopathy Hgb 9.0 g/dL (13.2-17.1) L 07/28/17 05:30 Hemoglobinopathy MCV 76.8 fL (80.0-100.0) L 07/28/17 05:30 Hemoglobinopathy MCH 24.6 pg (27.0-33.0) L 07/28/17 05:30 Hemoglobinopathy RDW 18.4 % (11.0-15.0) H 07/28/17 05:30 PT 12.6 Seconds (9.8-13.1) 07/26/17 06:25 INR 1.1 (0.9-1.2) 07/26/17 06:25 APTT 29.2 Seconds (25.6-37.1) 07/26/17 06:25 Sodium 141 mmol/l (132-148) 07/28/17 05:30 Potassium 4.5 MMOL/L (3.6-5.0) 07/28/17 05:30 Chloride 107 mmol/L (98-107) 07/28/17 05:30 Carbon Dioxide 27 mmol/L (22-30) 07/28/17 05:30 Anion Gap 12 (10-20) 07/28/17 05:30 BUN 17 mg/dl (9-20) 07/28/17 05:30 Creatinine 1.3 mg/dl (0.8-1.5) 07/28/17 05:30 Est GFR ( Amer) > 60 07/28/17 05:30 Est GFR (Non-Af Amer) 54 07/28/17 05:30 Random Glucose 88 mg/dL (75-110) 07/28/17 05:30 Calcium 9.8 mg/dL (8.4-10.2) 07/28/17 05:30 Total Bilirubin 0.5 mg/dl (0.2-1.3) 07/25/17 17:16 AST 26 U/L (17-59) 07/25/17 17:16 ALT 24 U/L (21-72) 07/25/17 17:16 Alkaline Phosphatase 58 U/L (38-126) 07/25/17 17:16 Ferritin 537.0 ng/Ml (17.9-464) H 07/27/17 05:30 Total Protein 7.1 G/DL (6.3-8.2) 07/25/17 17:16 Albumin 3.4 g/dL (3.5-5.0) L D 07/25/17 17:16 Globulin 3.7 gm/dL (2.2-3.9) 07/25/17 17:16 Albumin/Globulin Ratio 0.9 (1.0-2.1) L 07/25/17 17:16 Vitamin B12 452 pg/mL (239-931) 07/27/17 05:30 Folate 5.0 ng/mL 07/27/17 05:30 - Hospital Course Hospital Course: 76 yo male with history of HTN, OA, Renal Insufficiency and BPH was discharged on 03/04/2017 after patellar ligament repair and debridement of left knee, post revision of TKR and sent home with open wound with intent of primary wound closure by Dr Blake, plastic surgeon. Wound vac was placed and changed 3 times a week by Dr Blake. In spite of open wound, patient was able to ambulate with a walker. However patient had flu and was confined at [facility]. According to him wound vac was changed by a physician there and accidentally dislocated the knee prosthesis. Since then, it became very painful to ambulate even with a walker. Had closed reduction of knee prosthesis on 07/27/2017. Patient to be transferred to [facility] for continuation of PT/OT. Dr Blake would resume follow up with patient. Discharge Exam - Head Exam Head Exam: ATRAUMATIC - Eye Exam Eye Exam: absent: Scleral icterus - ENT Exam ENT Exam: Mucous Membranes Moist - Respiratory Exam Respiratory Exam: absent: Wheezes, Respiratory Distress - Cardiovascular Exam Cardiovascular Exam: REGULAR RHYTHM, +S1, +S2 - GI/Abdominal Exam GI & Abdominal Exam: Soft. absent: Tenderness - Rectal Exam Rectal Exam: Deferred - Neurological Exam Neurological exam: Alert, Oriented x3 - Psychiatric Exam Psychiatric exam: Normal Affect - Skin Skin Exam: Dry, Intact Discharge Plan - Follow Up Plan Condition: FAIR Disposition: REHAB FACILITY/REHAB UNIT
[2017-07-29 15:53] LABS: HEMOGLOBIN A 96.8 Percent (>96.0); HEMOGLOBIN A2 2.2 Percent (1.8-3.5)
[2017-07-29 16:44] VITALS: BP 174/77; PULSE 69; TEMP 99.3; O2SAT 96
== END 2017-07-29 16:20 | DRG 560 ==
LOC: H.ER 16:02 → OBSVTOIN 19:27 → H.ERHOLD 19:27 → H.MEDSURG1 21:38
PROVIDERS: ADMIT Internal Medicine; ATTEND Internal Medicine
PROC: 3E0234Z Introduction of Serum, Toxoid and Vaccine into Muscle, Percutaneous Approach (ICD-10-PCS; 2017-07-26)
PROC: 0SW Lower Joints, Revision (ICD-10-PCS; principal; 2017-07-27 12:15)
DX: T84.023A Instability of internal left knee prosthesis, initial encounter (principal); T81.31XA Disruption of external operation (surgical) wound, not elsewhere classified, initial encounter; N18.3 Chronic kidney disease, stage 3 (moderate); I12.9 Hypertensive chronic kidney disease with stage 1 through stage 4 chronic kidney disease, or unspecified chronic kidney disease; E78.5 Hyperlipidemia, unspecified; I25.10 Atherosclerotic heart disease of native coronary artery without angina pectoris; N40.0 Benign prostatic hyperplasia without lower urinary tract symptoms; Z96.652 Presence of left artificial knee joint; D64.9 Anemia, unspecified; N28.9 Disorder of kidney and ureter, unspecified; G47.30 Sleep apnea, unspecified; M19.90 Unspecified osteoarthritis, unspecified site; Y79.2 Prosthetic and other implants, materials and accessory orthopedic devices associated with adverse incidents; Z23 Encounter for immunization; Z91.19 Patient's noncompliance with other medical treatment and regimen; Z79.02 Long term (current) use of antithrombotics/antiplatelets; Z87.891 Personal history of nicotine dependence

== ENCOUNTER 2017-09-02 16:16 | Observation (INO) | payer MEDICARE ==
[2017-09-02 16:16] VITALS: BMI 31.8
--- NOTE | 2017-09-02 17:17 | ED PDOC ---
HPI: General Adult Time Seen by Provider: 09/02/17 16:33 Chief Complaint (Nursing): Abnormal Labs Chief Complaint (Provider): sent from rehab for anemia History Per: Other (transfer paperwork) History/Exam Limitations: other (poor historian) Current Symptoms Are (Timing): Still Present Severity: Moderate Recently: Treated By A Physician, Hospitalized Additional Complaint(s): 76yo male sent from rehab facility where is being treated for R knee wound, on wound vac, found to have Hgb 7.4 on outpatient labs today. Patient c/o generalized weakness, denies SOB, chest pain, headache or fever. Denies BRBPR, melena or hematemesis. Past Medical History Reviewed: Historical Data, Nursing Documentation, Vital Signs Vital Signs: Last Vital Signs Temp 97.9 F 09/02/17 16:20 Pulse 68 09/02/17 16:20 Resp 16 09/02/17 16:20 BP 158/90 H 09/02/17 16:20 Pulse Ox 98 09/02/17 17:19 - Medical History PMH: Anemia, Arthritis, CAD, HTN, Hypercholesterolemia, Chronic Kidney Disease, Sleep Apnea Denies: Anxiety, HIV, Hyperthyroidism, Hypothyroidism - Surgical History Other surgeries: R knee - Family History Family History: States: Unknown Family Hx - Living Arrangements Living Arrangements: Longterm/Assist Lv - Social History Current smoker - smoking cessation education provided: No - Home Medications Home Medications: Ambulatory Orders Medication Instructions Recorded Atorvastatin [Lipitor] 10 mg PO HS 07/25/17 Metoprolol Succinate [Toprol Xl] 100 mg PO DAILY 07/25/17 Tamsulosin HCl [Flomax] 0.4 mg PO DAILY 07/25/17 Acetaminophen [Tylenol 325mg tab] 650 mg PO Q4 PRN 09/02/17 Acetaminophen [Tylenol 325mg tab] 650 mg PO Q4 PRN 09/02/17 Clopidogrel [Plavix] 75 mg PO DAILY 09/02/17 Docusate [Colace] 200 mg PO HS 09/02/17 Gentamicin 60mg/50ml NS 60 mg IV Q12 09/02/17 [Gentamicin 60mg/50ml NS] Lactulose [Generlac] 30 ml PO DAILY 09/02/17 Naproxen [Naproxen] 375 mg PO Q6 PRN 09/02/17 Ondansetron [Zofran Tab] 4 mg PO Q4 PRN 09/02/17 Pantoprazole Sodium [Protonix] 40 mg PO DAILY 09/02/17 Vitamin A & D [Vitamin A & D Oint 1 appl TP BID 09/02/17 UD Foilpak] oxyCODONE/Acetaminophen [Percocet 1 tab PO Q4 PRN 09/02/17 5/325 mg Tab] - Allergies Allergies/Adverse Reactions: Allergies Allergy/AdvReac Type Severity Reaction Status Date / Time No Known Allergies Allergy Verified 12/18/16 00:41 Review of Systems Constitutional: Positive for: Weakness, Malaise ENT: Negative for: Throat Pain Cardiovascular: Negative for: Chest Pain Respiratory: Negative for: Cough Gastrointestinal: Negative for: Abdominal Pain Genitourinary Male: Negative for: Dysuria Musculoskeletal: Negative for: Neck Pain Skin: Negative for: Rash, Lesions Neurological: Negative for: Weakness, Numbness Physical Exam - Reviewed Nursing Documentation Reviewed: Yes Vital Signs Reviewed: Yes - Physical Exam Appears: Positive for: Well, Non-toxic, No Acute Distress Head Exam: Positive for: ATRAUMATIC, NORMAL INSPECTION, NORMOCEPHALIC Skin: Positive for: Normal Color, Warm, Pallor Eye Exam: Positive for: EOMI, PERRL, Other (conjunctival pallor) ENT: Positive for: Normal ENT Inspection Neck: Positive for: Normal, Painless ROM Cardiovascular/Chest: Positive for: Regular Rate, Rhythm Respiratory: Positive for: CNT, Normal Breath Sounds Gastrointestinal/Abdominal: Positive for: Bowel Sounds, Soft. Negative for: Tenderness Back: Positive for: Normal Inspection Extremity: Positive for: Normal ROM, Other (R knee in immobilizer with GEETHA wrap) Neurologic/Psych: Positive for: Alert, Oriented. Negative for: Motor/Sensory Deficits - Laboratory Results Result Diagrams: 09/02/17 18:00 09/02/17 18:00 - ECG O2 Sat by Pulse Oximetry: 98 Medical Decision Making Medical Decision Making: bloodwork ordered patient consented to PRBC transfusion after risks/benefits discussed prior charts reviewed, hematology saw patient, was on procrit to attempt to decrease dependency on transfusions. labs reviewed Hgb in ED mildly improved from outpatient but remains low and pt will need blood transfusion as anticipated surgery upcoming D/w Dr Kyle, admit obs med surg. Initial orders placed. Disposition - Clinical Impression Clinical Impression: Anemia - Patient ED Disposition Is Patient to be Admitted: Yes Counseled Patient/Family Regarding: Studies Performed, Diagnosis - Disposition Disposition Time: 18:20 Condition: FAIR Forms: [facility] ([place]) - Pt Status Changed To: Hospital Disposition Of: Observation - POA Present On Arrival: None
[2017-09-02 18:00] LABS: GRANULAR CAST 4 /lpf (0-1); SQUAMOUS EPITHIAL 1 /hpf (0-5); URINE BACTERIA MOD (<OCC); URINE BILIRUBIN NEGATIVE (NEGATIVE); URINE BLOOD SMALL (NEGATIVE); URINE CLARITY CLOUDY (Clear); URINE COLOR YELLOW (YELLOW); URINE GLUCOSE (UA) NEG (Normal); URINE LEUKOCYTE ESTERASE MOD Leu/uL (Negative); URINE PROTEIN 30 mg/dL (NEGATIVE); URINE UROBILINOGEN 0.2-1.0 mg/dL (0.2-1.0)
[2017-09-02 18:01] LABS: RENAL EPITHELIAL 3 /hpf (0-3)
[2017-09-02 18:20] LABS: ALB/GLOB RATIO 0.8 (1.0-2.1); ALBUMIN 3.1 g/dL (3.5-5.0); CALCIUM 9.9 mg/dL (8.4-10.2)
[2017-09-02 18:23] LABS: INR 1.1 (0.9-1.2); PARTIAL THROMBOPLASTIN TIME 23.3 Seconds (25.6-37.1); PROTHROMBIN TIME 11.8 Seconds (9.8-13.1)
[2017-09-02 18:27] LABS: BASO % 0.5 % (0.0-2.0); EOS # 0.2 K/uL (0.0-0.7); EOS % 3.2 % (0.0-4.0); HEMOGLOBIN 8.5 g/dL (12.0-18.0); LYMPH % 16.1 % (20.0-40.0); MEAN CELL VOLUME 72.9 fl (80.0-94.0); MEAN CORPUSCULAR HEMOGLOBIN 23.1 pg (27.0-31.0); MEAN CORPUSCULAR HGB CONC 31.7 g/dL (33.0-37.0); MEAN PLATELET VOLUME 8.1 fl (7.2-11.7); MONO # 0.8 K/uL (0.0-0.8); MONO % 12.1 % (0.0-10.0); NEUT # 4.3 K/uL (1.8-7.0); NEUT % 68.1 % (50.0-75.0); NRBC % 0.1 % (0.0-0.0); RBC 3.69 Mil/uL (4.40-5.90); WHITE BLOOD COUNT 6.3 K/uL (4.8-10.8)
--- NOTE | 2017-09-03 07:49 | RAD ---
HISTORY: SOB COMPARISON: No prior. FINDINGS: LUNGS: No active pulmonary disease. PLEURA: No significant pleural effusion identified, no pneumothorax apparent. CARDIOVASCULAR: Normal. OSSEOUS STRUCTURES: No significant abnormalities. VISUALIZED UPPER ABDOMEN: Normal. OTHER FINDINGS: None. IMPRESSION: No active disease.
[2017-09-03 07:50] VITALS: BP 130/72; PULSE 62; RESP 20; TEMP 97.8; O2SAT 97
[2017-09-03 08:13] LABS: HEMOGLOBIN 9.6 g/dL (12.0-18.0); MEAN CELL VOLUME 75.6 fl (80.0-94.0); MEAN CORPUSCULAR HEMOGLOBIN 24.1 pg (27.0-31.0); MEAN CORPUSCULAR HGB CONC 31.9 g/dL (33.0-37.0); RBC 3.98 Mil/uL (4.40-5.90); WHITE BLOOD COUNT 5.2 K/uL (4.8-10.8)
--- NOTE | 2017-09-03 09:17 | CP.PCM.DIS ---
Provider - Provider Date of Admission: 09/02/17 18:58 Attending physician: Juan Luis Kyle MD Time Spent in preparation of Discharge (in minutes): 30 Diagnosis - Discharge Diagnosis (1) Anemia Status: Chronic (2) Chronic wound of extremity Status: Acute (3) Infection of left knee Status: Acute (4) Postoperative wound dehiscence Status: Acute (5) BPH (benign prostatic hyperplasia) Status: Chronic (6) CKD (chronic kidney disease), stage III Status: Chronic (7) HTN (hypertension) Status: Chronic (8) Hyperlipidemia Status: Chronic Hospital Course - Lab Results Lab Results: Most Recent Lab Values WBC 5.2 K/uL (4.8-10.8) 09/03/17 08:05 RBC 3.98 Mil/uL (4.40-5.90) L 09/03/17 08:05 Hgb 9.6 g/dL (12.0-18.0) L 09/03/17 08:05 Hct 30.1 % (35.0-51.0) L 09/03/17 08:05 MCV 75.6 fl (80.0-94.0) L D 09/03/17 08:05 MCH 24.1 pg (27.0-31.0) L 09/03/17 08:05 MCHC 31.9 g/dL (33.0-37.0) L 09/03/17 08:05 RDW 20.0 % (11.5-14.5) H 09/03/17 08:05 Plt Count 214 K/uL (130-400) 09/03/17 08:05 MPV 8.1 fl (7.2-11.7) 09/02/17 18:00 Neut % (Auto) 68.1 % (50.0-75.0) 09/02/17 18:00 Lymph % (Auto) 16.1 % (20.0-40.0) L 09/02/17 18:00 Evans % (Auto) 12.1 % (0.0-10.0) H 09/02/17 18:00 Eos % (Auto) 3.2 % (0.0-4.0) 09/02/17 18:00 Baso % (Auto) 0.5 % (0.0-2.0) 09/02/17 18:00 Neut # (Auto) 4.3 K/uL (1.8-7.0) 09/02/17 18:00 Lymph # (Auto) 1.0 K/uL (1.0-4.3) 09/02/17 18:00 Evans # (Auto) 0.8 K/uL (0.0-0.8) 09/02/17 18:00 Eos # (Auto) 0.2 K/uL (0.0-0.7) 09/02/17 18:00 Baso # (Auto) 0.0 K/uL (0.0-0.2) 09/02/17 18:00 PT 11.8 Seconds (9.8-13.1) 09/02/17 18:00 INR 1.1 (0.9-1.2) 09/02/17 18:00 APTT 23.3 Seconds (25.6-37.1) L 09/02/17 18:00 Sodium 142 mmol/l (132-148) 09/02/17 18:00 Potassium 4.1 MMOL/L (3.6-5.0) 09/02/17 18:00 Chloride 106 mmol/L (98-107) 09/02/17 18:00 Carbon Dioxide 25 mmol/L (22-30) 09/02/17 18:00 Anion Gap 15 (10-20) 09/02/17 18:00 BUN 20 mg/dl (9-20) 09/02/17 18:00 Creatinine 2.0 mg/dl (0.8-1.5) H 09/02/17 18:00 Est GFR ( Amer) 39 09/02/17 18:00 Est GFR (Non-Af Amer) 33 09/02/17 18:00 Random Glucose 87 mg/dL (75-110) 09/02/17 18:00 Calcium 9.9 mg/dL (8.4-10.2) 09/02/17 18:00 Total Bilirubin 0.4 mg/dl (0.2-1.3) 09/02/17 18:00 AST 17 U/L (17-59) D 09/02/17 18:00 ALT 21 U/L (21-72) 09/02/17 18:00 Alkaline Phosphatase 58 U/L (38-126) 09/02/17 18:00 Total Protein 7.1 G/DL (6.3-8.2) 09/02/17 18:00 Albumin 3.1 g/dL (3.5-5.0) L 09/02/17 18:00 Globulin 4.0 gm/dL (2.2-3.9) H 09/02/17 18:00 Albumin/Globulin Ratio 0.8 (1.0-2.1) L 09/02/17 18:00 Urine Color Yellow (YELLOW) 09/02/17 17:37 Urine Clarity Cloudy (Clear) 09/02/17 17:37 Urine pH 5.0 (5.0-8.0) 09/02/17 17:37 Ur Specific Viola 1.016 (1.003-1.030) 09/02/17 17:37 Urine Protein 30 mg/dL (NEGATIVE) 09/02/17 17:37 Urine Glucose (UA) Neg mg/dL (Normal) 09/02/17 17:37 Urine Ketones Negative mg/dL (NEGATIVE) 09/02/17 17:37 Urine Blood Small (NEGATIVE) 09/02/17 17:37 Urine Nitrate Negative (NEGATIVE) 09/02/17 17:37 Urine Bilirubin Negative (NEGATIVE) 09/02/17 17:37 Urine Urobilinogen 0.2-1.0 mg/dL (0.2-1.0) 09/02/17 17:37 Ur Leukocyte Esterase Mod Andres/uL (Negative) 09/02/17 17:37 Urine RBC (Auto) 6 /hpf (0-3) H 09/02/17 17:37 Urine Microscopic WBC 57 /hpf (0-5) H 09/02/17 17:37 Ur Squamous Epith Cells 1 /hpf (0-5) 09/02/17 17:37 Ur Renal Epithelial Cell 3 /hpf (0-3) 09/02/17 17:37 Urine Bacteria Mod (<OCC) H 09/02/17 17:37 Hyaline Casts 3-5 /hpf (0-2) H 09/02/17 17:37 Granular Casts (Auto) 4 /lpf (0-1) 09/02/17 17:37 Blood Type O POSITIVE 09/02/17 17:55 Antibody Screen Negative 09/02/17 17:55 Crossmatch See Detail 09/02/17 17:55 BBK History Checked Patient has bt 09/02/17 17:55 - Hospital Course Hospital Course: anemia improved l knee wound persists Discharge Exam - Head Exam Head Exam: ATRAUMATIC, NORMAL INSPECTION, NORMOCEPHALIC - Eye Exam Eye Exam: EOMI, Normal appearance, PERRL Pupil Exam: NORMAL ACCOMODATION, PERRL - GI/Abdominal Exam GI & Abdominal Exam: Normal Bowel Sounds - Rectal Exam Rectal Exam: NORMAL INSPECTION - Extremities Exam Additional comments: non-healing wound l knee - Neurological Exam Neurological exam: Alert, CN II-XII Intact, Normal Gait, Oriented x3, Reflexes Normal - Psychiatric Exam Psychiatric exam: Normal Affect, Normal Mood - Skin Skin Exam: Dry, Intact, Normal Color, Warm Discharge Plan - Follow Up Plan Condition: FAIR Disposition: HOME/ ROUTINE Patient education suggested?: Yes Additional Instructions: discharge to subacute care at [facility] monitor hb closely
--- NOTE | 2017-09-03 09:37 | HP ---
HISTORY OF PRESENT ILLNESS: Mr. Rosenbaum is a 76-year-old male who is admitted via the Emergency Room after he was transferred from [facility] because of severe anemia. His hemoglobin was noted to be 7.8 and he was transferred to the Emergency Room for transfusion of packed red blood cells. He has a history of nonhealing wound of left knee following surgery and is on IV antibiotics and analgesics for pain. He also has a history of benign prostatic hypertrophy, hypertension, and hyperlipidemia. FAMILY HISTORY: Noncontributory. SOCIAL HISTORY: He does not smoke or drink. REVIEW OF SYSTEMS: Essentially remarkable for left knee pain and nonhealing wound. PHYSICAL EXAMINATION: GENERAL: The patient is alert and oriented. VITAL SIGNS: Reviewed and are stable. HEENT: Mouth shows fair hygiene. LUNGS: Clear. HEART: Regular. No murmurs or gallops. ABDOMEN: Soft and nontender, no organomegaly. EXTREMITIES: Nonhealing wound of left knee for which he has a wound VAC, but the wound VAC has been removed. Right lower extremity appears unremarkable. CENTRAL NERVOUS SYSTEM: Exam grossly intact. LABORATORY DATA: Remarkable for hemoglobin of 7.8. Electrolytes are within normal limits except for creatinine of 2.0. Chest x-ray showed no active disease. EKG official report pending. IMPRESSION AND PLAN: Severe anemia probably secondary to bone marrow suppression because of severe left knee infection, hyperlipidemia, hypertension, and benign prostatic hypertrophy. The plan is transfusion of packed red blood cells and transfer the patient back to subacute care at [facility]. He will continue with IV antibiotics and will require orthopedic reevaluation regarding his left knee surgery. Juan Luis Kyle MD
--- NOTE | 2017-09-03 12:19 | CARD ---
APPROVED REPORT EKG Measurement Heart [id number] <Conclusion> Normal sinus rhythm with sinus arrhythmia Left axis deviation Left bundle branch block Abnormal ECG
== END 2017-09-03 12:11 ==
LOC: H.ER 16:16 → H.ERHOLD 18:58 → H.MEDSURG1 20:21
PROVIDERS: ADMIT Internal Medicine Pulmonary Disease; ATTEND Internal Medicine Pulmonary Disease
DX: D64.89 Other specified anemias (principal); I12.9 Hypertensive chronic kidney disease with stage 1 through stage 4 chronic kidney disease, or unspecified chronic kidney disease; N18.3 Chronic kidney disease, stage 3 (moderate); T81.31XA Disruption of external operation (surgical) wound, not elsewhere classified, initial encounter; I25.10 Atherosclerotic heart disease of native coronary artery without angina pectoris; E78.5 Hyperlipidemia, unspecified; E78.00 Pure hypercholesterolemia, unspecified; N40.0 Benign prostatic hyperplasia without lower urinary tract symptoms; G47.30 Sleep apnea, unspecified; M19.90 Unspecified osteoarthritis, unspecified site; Z79.02 Long term (current) use of antithrombotics/antiplatelets
CPT/HCPCS: 36415; 36430; 71045; 80053; 81003; 85025; 85027; 85610; 85730; 86850; 86900; 86920; 93005; 99283; G0378; P9051